=== PATIENT | female | born 1970 | race Caucasian/White ===

== ENCOUNTER 2016-06-11 13:41 | Emergency (ER) | payer OTHER ==
[2016-06-11 15:48] VITALS: BP 126/91
[2016-06-11] MEDS ORDERED: Albuterol 2.5 MG/3 ML NEB.SOL* (0.083%) INH ONE (16:20)
--- NOTE | 2016-06-11 16:28 | UC ---
Respiratory Complaint HPI - HPI Summary HPI Summary: Started feeling very sick 5 nights ago with fever, cough, body aches, [place], and ST. Fever lasted about 2 days, but cough and SOB are now worse, especially with exertion and deep breaths. Feeling worse since yesterday, though aches and fever are better. - History of Current Complaint Chief Complaint: UCRespiratory Stated Complaint: COUGH Time Seen by Provider: 06/11/16 16:10 Hx Obtained From: Patient ?: No Onset/Duration: Gradual Onset, Lasting Days Timing: Constant Severity Initially: Moderate Severity Currently: Moderate Character: Sputum Description: - yellow, green, thick Alleviating Factors: Upright Position Associated Signs And Symptoms: Positive: Dyspnea, Fever, Chills, Wheezing, URI, Nasal Congestion. Negative: Hemoptysis, Calf Swelling - Allergies/Home Medications Allergies/Adverse Reactions: Allergies Allergy/AdvReac Type Severity Reaction Status Date / Time Ciprofloxacin [From Cipro] AdvReac GI Upset Verified 06/11/16 15:48 PMH/Surg Hx/FS Hx/Imm Hx - Additional Past Medical History Additional PMH: osteoporosis Endocrine History Of: Denies: Diabetes, Thyroid Disease Cardiovascular History Of: Denies: Cardiac Disorders, Hypertension, Pacemaker/ICD Respiratory History Of: Denies: COPD, Asthma GI/ History Of: Denies: Ulcer, Renal Disease Cancer History Of: Reports: Colorectal Cancer - Surgical History Surgical History: Yes Surgery Procedure, Year, and Place: lower anterior bowel resection 05/2008;. bilateral hip fx reconstruction - Family History Known Family History: Positive: Other - Colon [place] - Social History Alcohol Use: Weekly Substance Use Type: None Smoking Status (MU): Former Smoker Type: Cigarettes - Immunization History Most Recent Influenza Vaccination: 2016 Most Recent Tetanus Shot: uknown Most Recent Pneumonia Vaccination: None Review of Systems Constitutional: Fever, Chills, Fatigue Skin: Negative Eyes: Negative ENT: Sore Throat Respiratory: Shortness Of Breath, Cough Cardiovascular: Negative Gastrointestinal: Negative Genitourinary: Negative Motor: Negative Neurovascular: Negative Musculoskeletal: Arthralgia, Myalgia Neurological: Headache Psychological: Negative All Other Systems Reviewed And Are Negative: Yes Physical Exam Triage Information Reviewed: Yes Appearance: No Pain Distress, Well-Nourished Vital Signs: Initial Vital Signs Temp 98.8 F 06/11/16 15:40 Pulse 89 06/11/16 15:40 Resp 18 06/11/16 15:40 BP 126/91 06/11/16 15:40 Pulse Ox 98 06/11/16 15:40 Vital Signs Reviewed: Yes Eye Exam: Normal Eyes: Positive: Conjunctiva Clear ENT: Positive: Hearing grossly normal, Nasal congestion, TMs normal. Negative: Tonsillar swelling, Tonsillar exudate Dental Exam: Normal Neck exam: Normal Neck: Positive: Supple, Nontender, No Lymphadenopathy Respiratory Exam: Other - frequent dustin cough Respiratory: Positive: Rhonchi, Wheezing Cardiovascular Exam: Normal Cardiovascular: Positive: RRR, No Murmur Musculoskeletal Exam: Normal Neurological Exam: Normal Psychological Exam: Normal Skin Exam: Normal UC Diagnostic Evaluation - Laboratory O2 Sat by Pulse Oximetry: 98 Respiratory Course/Dx - Differential Dx/Diagnosis Provider Diagnoses: Akdubdarb-kgcx-ughovwf. bronchospasm Discharge - Discharge Plan Condition: Stable Disposition: HOME Prescriptions: Albuterol HFA INHALER* [Ventolin HFA Inhaler*] 1 - 2 puff INH Q4H PRN #1 mdi PRN Reason: wheeze, cough Guaifenesin-Codeine [Guaiatussin AC] 5 - 10 ml PO Q6H #240 ml MDD 40mL predniSONE TAB* [Deltasone TAB*] 50 mg PO DAILY #3 tab Patient Education Materials: Influenza (ED), Bronchospasm (ED) Referrals: Atilio Harry MD [Primary Care Provider] - Suad Mccall MD [Medical Doctor] - 5 Days Additional Instructions: Your chest x-ray did not show signs of pneumonia. All of your symptoms, as severe as they are, are consistent with an infection with influenza. There is no sign of bacterial infection at this time, but I want you to have close follow -up with your primary care provider to make sure that you are able to keep your oxygen level up with exertion. Please see your PCP on Thursday or Thursday for a recheck. If you develop new fever or increasing trouble breathing in the mean time, please go to the emergency department.
--- NOTE | 2016-06-11 16:47 | RAD ---
INDICATION: Cough, fever and shortness of breath. COMPARISON: Comparison is made with a prior chest x-ray study from February 03, 2010. TECHNIQUE: Dual-energy PA and lateral views of the chest were obtained. FINDINGS: The heart is within normal limits in size. Mediastinal and hilar contours appear within normal limits. The lungs are hyperinflated and clear. No pleural effusion is seen. IMPRESSION: FINDINGS SUGGESTIVE OF COPD, NO EVIDENCE FOR ACUTE FINDING.
== END 2016-06-11 17:08 | disposition home or self-care (01) ==
LOC: UCEAST 13:41
DX: J11.1 Influenza due to unidentified influenza virus with other respiratory manifestations (principal); J98.01 Acute bronchospasm; Z85.038 Personal history of other malignant neoplasm of large intestine; Z88.1 Allergy status to other antibiotic agents; Z87.891 Personal history of nicotine dependence
CPT/HCPCS: 71020; 99212; G0463

== ENCOUNTER 2017-06-25 12:43 | Emergency (ER) | payer OTHER ==
[2017-06-25 15:29] VITALS: BP 104/76
--- NOTE | 2017-06-25 16:35 | UC ---
Lower Extremity/Ankle HPI - HPI Summary HPI Summary: Patient is a 47-year-old female presented to the with chief complaint of bilateral knee pain, right fourth finger pain and ecchymosis and left foot swelling. She states she fell yesterday while working, falling directly onto her bilateral knees and injuring her finger in the process. She endorses a history of osteoporosis and is treated by Dr. Christy. She's been taking ibuprofen without relief of pain. She states due to her osteoporosis, she fractures easily, having had multiple fractures in the past undiagnosed for a long period of time. While she endorses swelling to the left ankle, this has been constant for over one month. X-ray obtained 1 month ago without any acute osseous injury. She feels she may have reinjured the area after her fall. Range of motion to the bilateral knees with pain. Range of motion to the ankle with pain. Ecchymosis to the fourth right finger with no limitations of range of motion. - History of Current Complaint Chief Complaint: UCLowerExtremity Stated Complaint: KNEE/HAND INJURY Time Seen by Provider: 06/25/17 15:40 Hx Obtained From: Patient ?: No Onset/Duration: Sudden Onset Severity Initially: Mild Severity Currently: Mild Pain Intensity: 3 Pain Scale Used: 0-10 Numeric Aggravating Factor(s): Standing, Ambulation Alleviating Factor(s): Rest Able to Bear Weight: Yes Related History: Occupational Injury - Risk Factors Gout Risk Factors: Age Over 40, Peripherial Vascular Disease DVT Risk Factors: Negative Septic Arthritis Risk Factor: Negative - Allergies/Home Medications Allergies/Adverse Reactions: Allergies Allergy/AdvReac Type Severity Reaction Status Date / Time ciprofloxacin Allergy Diarrhea Verified 06/25/17 15:30 PMH/Surg Hx/FS Hx/Imm Hx Previously Healthy: Yes - Surgical History Surgical History: Yes Surgery Procedure, Year, and Place: lower anterior bowel resection 05/2008;. bilateral hip fx reconstruction - Family History Known Family History: Positive: Unknown, Other - Colon [place] - Social History Occupation: Employed Full-time Lives: With Family Alcohol Use: Occasionally Substance Use Type: None Smoking Status (MU): Former Smoker Type: Cigarettes - Immunization History Most Recent Influenza Vaccination: 2015 Most Recent Tetanus Shot: uknown Most Recent Pneumonia Vaccination: None Review of Systems Constitutional: Negative Skin: Negative Respiratory: Negative Cardiovascular: Negative Motor: Negative Neurovascular: Negative Musculoskeletal: Arthralgia - bilateral knee pain/ left foot swelling/ right fourth finger ecchymosis Neurological: Negative Psychological: Negative Is Patient Immunocompromised?: No All Other Systems Reviewed And Are Negative: Yes Physical Exam Triage Information Reviewed: Yes Appearance: Well-Appearing, Well-Nourished Vital Signs: Initial Vital Signs Temp 99.3 F 06/25/17 15:26 Pulse 86 06/25/17 15:26 Resp 18 06/25/17 15:26 BP 104/76 06/25/17 15:26 Pulse Ox 97 06/25/17 15:26 Vital Signs Reviewed: Yes Eye Exam: Normal Eyes: Positive: Conjunctiva Clear Neck exam: Normal Neck: Positive: Supple, No Lymphadenopathy Respiratory Exam: Normal Respiratory: Positive: Chest non-tender Cardiovascular Exam: Normal Cardiovascular: Positive: RRR Musculoskeletal: Positive: ROM Limited @ - left ankle, bilateral knees, R fourth finger pain Psychological: Positive: Normal Response To Family Skin Exam: Normal Lower Extremity Course/Dx - Course Course Of Treatment: During the course treatment, the patient is evaluated for bilateral knee pain, right fourth finger injury and left foot pain after falling yesterday at work. She has been taking ibuprofen without relief. She is being treated by Dr. Polk for previous fractures and osteoporosis. Patient sent to x-ray. X-ray final reads are negative for any fractures. Swelling to the right fourth finger. Patient is made aware and given note for work. She will follow-up with her PCP for any changing symptoms. - Differential Dx/Diagnosis Provider Diagnoses: Fall Discharge - Sign-Out/Discharge Documenting (check all that apply): Discharge/Admit/Transfer - Discharge Plan Condition: Stable Disposition: HOME Patient Education Materials: Swollen Knee Joint (ED), Knee Pain (ED) Forms: *Work Release Referrals: Atilio Harry MD [Primary Care Provider] - Additional Instructions: Please follow up with Dr. Polk Ibuprofen 400mg three times daily ice Elevate - Billing Disposition and Condition Condition: STABLE Disposition: HOME
--- NOTE | 2017-06-25 16:36 | RAD ---
Indication: Right ring finger injury. 4 views of the right ring finger demonstrates no fracture. No other bone or joint abnormality is identified. Soft tissue swelling over the proximal interphalangeal joint is noted. IMPRESSION: Soft tissue swelling at the proximal interphalangeal joint of the right fourth digit.
--- NOTE | 2017-06-25 16:42 | RAD ---
Indication: Fall, history of right tibial plateau fracture. 4 views of the right knee and 4 views of left knee are reviewed. The right knee demonstrates no fracture. No joint effusion is noted. The left knee demonstrates no fracture. No joint effusion is noted. IMPRESSION: No fracture is identified. No joint effusion is noted.
--- NOTE | 2017-06-25 16:44 | RAD ---
INDICATION: Left foot injury. TECHNIQUE: 3 views of the left foot were obtained. FINDINGS: There is diffuse soft tissue swelling. The bones are osteopenic. No fracture is seen. There is hallux valgus deformity and mild osteoarthritic change in the first metatarsal-phalangeal joint. IMPRESSION: SOFT TISSUE SWELLING, NO FRACTURE IS SEEN. IF THE PATIENT'S SYMPTOMS PERSIST RECOMMEND FOLLOW-UP IMAGING.
== END 2017-06-25 17:40 | disposition home or self-care (01) ==
LOC: UCEAST 12:43
DX: M25.562 Pain in left knee (principal); M25.561 Pain in right knee; S69.91XA Unspecified injury of right wrist, hand and finger(s), initial encounter; M79.672 Pain in left foot; W19.XXXA Unspecified fall, initial encounter; Y93.9 Activity, unspecified; Y92.9 Unspecified place or not applicable; M81.0 Age-related osteoporosis without current pathological fracture; Z88.1 Allergy status to other antibiotic agents; Z87.891 Personal history of nicotine dependence
CPT/HCPCS: 73140; 99211; G0463

== ENCOUNTER 2017-12-16 10:43 | Observation (INO) | payer OTHER ==
--- OUTSIDE RECORDS SUMMARY | 2017-12-16 10:53 | XMS REPORT ---
:1970 External Reference #:[id number] Author Organization [employer] Address [address] [place] [address] Phone [phone] Care Team Providers Name Role Phone Atilio Harry M.D. Primary Care Physician Unavailable Payers Type Date Identification Numbers Payment Provider Subscriber Commercial Policy Number: [id number] [employer] Radha Valdez Group Number: [id number] [address] PayID: [id number] [place] [address] Problems Description No Information Family History Date Family Member(s) Problem(s) Comments General Arthritis, Osteo General Arthritis Father Blood Disorder Mother Rheumatoid Arthritis Mother Kidney Disease Maternal Grandfather due to [place] () - age 60 Social History Type Date Description Comments Marital Status Lives With Spouse 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 Cigarette Use Occasionally Smokes Cigarettes On and off 20 yrs ETOH Use Occasionally consumes alcohol Moderate amt In the past pt used ETOH to help her sleep 6-7 beers per night Smoking Patient is a former smoker Daily Caffeine Does Not Consume Caffeine Exercise Type/Frequency Exercises regularly Allergies, Adverse Reactions, Alerts Date Description Reaction Status Severity Comments 01/24/2009 contrast dye severe GI reaction active CT scan 08/14/2017 Cipro active GI 03/09/2008 NKDA inactive Medications Medication Date Status Form Strength Qnty SIG Indications Ordering Provider Gabapentin 10/21/ Active Capsules 100mg 45cap take 1 R20.8 Johny 2017 s capsule by Tona, mouth at M.D. night for 1 week then 1 by mouth twice daily ongoing Compression 10/21/ Active Misc 2unit please use R20.8 Johny Stockings 2018 s daily as Tona, needed for M.D. leg/foot swelling Prolia 10/05/ Active Solution 60mg/ml 60mg 60 mg sc Johny 2018 q6mon Dayanna Carbone Compression 08/14/ Active Misc 2unit please use Johny Layne 2018 s daily as Tona, needed for M.D. leg/foot swelling B12 Fast 08/14/ Active Tablets 5000mcg 90tab sublingual Johny Dissolve 2018 Dispers s daily Dayanna Carbone Percocet 01/24/ Active Tablets 5-325mg 40tab 1 po q4h Jj 2008 s prn Manolo Garber M.D. Multi Vitamin 03/09/ Active Tablets 90tab 1 po qd Jj 2008 s Manolo Garber M.D. Calcium 600 / Active Tablets 2 by mouth Unknown 0000 every day Melatonin / Active Capsules 1 tab by Unknown 0000 mouth at bedtime as needed for insomnia Famotidine / Active Tablets 40mg 1 by mouth Unknown 0000 twice a day, as needed Advil / Active Tablets 200mg as needed Unknown 0000 Creon / Active Caps DR Chapman [id number] 1 po qd Unknown 0000 Lorazepam / Active Tablets 1mg 2 po daily Unknown 0000 Oxycontin / Active Tab ER 12H 10mg 1 tab As Unknown 0000 Abuse-Det needed Ativan 01/24/ Hx Tablets 0.5mg 10tab 1 po qd prn Jj 2008 - s S. 12/14/ Shirlene Moser M.D. Lidicaine 03/09/ Hx Tablets 90tab Mouth Rinse Qutaybeh 2008 - s 3-4 X Day S. 01/24/ Shirlene Anne M.D. Miracle Mouth 03/09/ Hx Liquid 2Teaspoons 30uni qid Jose Luistaybeh Wash 2008 - S. 06/30/ Shirlene Anne M.D. Vicodin 03/09/ Hx Tablets 5-500mg 180ta 1 q 4-6 Jose Luistaybeh 2008 - bs hours prn S. 01/24/ Shirlene Anne M.D. Immodium 03/09/ Hx 2mg 30uni 1 po qd prn Qutaybeh 2008 - ts S. 06/30/ Shirlene Anne M.D. carafate 03/09/ Hx Suspension 1GM/10ML [facility] 2008 - le lips S. 04/06/ Shirlene Anne M.D. Lorazepam 03/09/ Hx Tablets 1mg 30tab 1 q 6 hours [facility] - s prn S. 01/24/ Shirlene Anne M.D. Lidoderm 03/09/ Hx Patches 5% 30uni apply [facility] 2008 - ts topically S. 01/24/ [facility] Biotin / Hx Capsules Unknown 0000 - 2017 Vitamin / Hx Tablets 1 by mouth Unknown B-Complex 0000 - every day 2017 Vital Signs Date Vital Result Comment 12/15/2017 Height 64 inches 5'4" Weight 96.12 lb Heart Rate 88 /min BP Systolic 102 mmHg BP Diastolic 80 mmHg Respiratory Rate 16 /min BMI (Body Mass Index) 16.5 kg/m2 10/21/2017 Height 64 inches 5'4" Weight 98.00 lb Heart Rate 87 /min BP Systolic Sitting 100 mmHg BP Diastolic Sitting 71 mmHg Respiratory Rate 14 /min Pain Level 5 BMI (Body Mass Index) 16.8 kg/m2 09/08/2017 Height 64 inches 5'4" Weight 97.00 lb Heart Rate 96 /min BP Systolic Sitting 94 mmHg BP Diastolic Sitting 66 mmHg Respiratory Rate 14 /min Pain Level 2 BMI (Body Mass Index) 16.6 kg/m2 08/14/2017 Height 64 inches 5'4" Weight 98.12 lb Heart Rate 68 /min BP Systolic Sitting 98 mmHg BP Diastolic Sitting 68 mmHg Respiratory Rate 14 /min Pain Level 2 BMI (Body Mass Index) 16.8 kg/m2 01/24/2009 Weight 102.00 lb Heart Rate 84 /min BP Systolic Sitting 90 mmHg BP Diastolic Sitting 62 mmHg Respiratory Rate 16 /min 06/30/2008 Height 65 inches 5'5" Weight 104.00 lb Heart Rate 64 /min BP Systolic Sitting 90 mmHg L BP Diastolic Sitting 64 mmHg L BMI (Body Mass Index) 17.3 kg/m2 04/06/2008 Weight 115.00 lb Heart Rate 68 /min BP Systolic Sitting 98 mmHg BP Diastolic Sitting 64 mmHg Respiratory Rate 16 /min 03/09/2008 Height 64 inches 5'4" Weight 121.00 lb Heart Rate 72 /min BP Systolic Sitting 90 mmHg BP Diastolic Sitting 62 mmHg BP Systolic Standing 100 mmHg BP Diastolic Standing 70 mmHg Respiratory Rate 14 /min BMI (Body Mass Index) 20.8 kg/m2 Results Test Date Test Result H/L Range Note Vitamin B12 And Folate Serum 10/05/2017 Vitamin B12 > 1450 pg/mL High 180- 914 1 Folic Acid (Folate) 15.74 ng/mL >3.99 2 Connective Tissue Panel 08/25/2017 Anti-Nuclear Antibody 0.2 U 3 Cyclic Citrullinated Peptide <15.6 U 4 Interpretation See Comment 5 Laboratory test finding 08/25/2017 Vitamin D, 1,25 Dihydroxy 75 pg/mL 18- 78 6 Free T4 (Free Thyroxine) 0.81 ng/dL 0.61-1.12 7 Thyroperoxidase AB 17.72 IU/mL High <9 8 Hla B27 08/25/2017 Hla B27 Negative 9 Hla B27 Interp See Comment 10 Laboratory test finding 08/25/2017 Mitochondrial AB AMA M2 <0.1 U 11 Igg CBC Auto Diff 08/07/2017 White Blood Count 7.7 10^3/uL 3.5-10.8 Red Blood Count 3.42 10^6/uL Low 4.00-5.40 Hemoglobin 12.6 g/dL 12.0-16.0 Hematocrit 37 % 35-47 Mean Corpuscular Volume 107 fL High 80-97 12 Mean Corpuscular Hemoglobin 37 pg High 27-31 Mean Corpuscular HGB Conc 34 g/dL 31-36 Red Cell Distribution Width 15 % 10.5-15 Platelet Count 267 10^3/uL 150-450 Mean Platelet Volume 7.6 um3 7.4-10.4 Abs Neutrophils 4.5 10^3/uL 1.5-7.7 Abs Lymphocytes 2.4 10^3/uL 1.0-4.8 Abs Monocytes 0.6 10^3/uL 0-0.8 Abs Eosinophils 0 10^3/uL 0-0.6 Abs Basophils 0.1 10^3/uL 0-0.2 Abs Nucleated RBC 0 10^3/uL Granulocyte % 59.1 % 38-83 Lymphocyte % 31.5 % 25-47 Monocyte % 8.1 % High 0-7 Eosinophil % 0.5 % 0-6 Basophil % 0.8 % 0-2 Nucleated Red Blood Cells % 0 Comp Metabolic Panel 08/07/2017 Sodium 135 mmol/L 135-145 Potassium 4.1 mmol/L 3.5-5.0 Chloride 98 mmol/L Low 101-111 Co2 Carbon Dioxide 31 mmol/L 22-32 Anion Gap 6 mmol/L 2-11 Glucose 113 mg/dL High 70-100 Blood Urea Nitrogen 5 mg/dL Low 6-24 Creatinine 0.48 mg/dL Low 0.51-0.95 BUN/Creatinine Ratio 10.4 8-20 Calcium 8.7 mg/dL 8.6-10.3 Total Protein 5.5 g/dL Low 6.4-8.9 Albumin 2.8 g/dL Low 3.2-5.2 Globulin 2.7 g/dL 2-4 Albumin/Globulin Ratio 1.0 1-3 Total Bilirubin 0.40 mg/dL 0.2-1.0 Alkaline Phosphatase 199 U/L High 34-104 Alt 20 U/L 7-52 Ast 35 U/L 13-39 Egfr Non- 138.0 >60 Egfr 167.0 >60 13 Laboratory test 08/07/2017 Carcinoembryonic Antigen 19.0 ng/mL High 0.1- 5.0 14 finding Cea 1 Normal Range 180 to 914 Indeterminate Range 145 to 180 Deficient Range <145 2 Please check labs 2 weeks 3 REFERENCE VALUE <=1.0 (Negative) 4 REFERENCE VALUE <20.0 (Negative) 5 Tests for antibodies to dsDNA and YAA antigens are not performed automatically unless the IVONNE result is > or= 3.0 U. Studies performed at [facility] indicate that positive IVONNE results <3.0 U are rarely accompanied by positive second order tests. Test Performed by: [facility] [employer] - [address] [address] 6 ADDITIONAL INFORMATION This test was developed and its performance characteristics determined by [facility] in a manner consistent with CLIA requirements. This test has not been cleared or approved by the U.S. Food and Drug Administration. Test Performed by: [facility] - [facility] [address] [place] [address] 7 Please check labs this week 8 Please check labs this week 9 REFERENCE VALUE Not Applicable 10 RESULT: HLA-B27 antigen was not detected. ADDITIONAL INFORMATION Method: Flow Cytometry Performing Laboratory CLIA# [id number] Test Performed by: [facility] [address] [place] [address] 11 REFERENCE VALUE <0.1 (Negative) Test Performed by: [facility] - [address] [address] 12 Consistent with Previous Results Reported on 04/08/17 13 Because ethnic data is not always readily available, this report includes an eGFR for both -Americans and non- Americans. The National Kidney Disease Education Program (NKDEP) does not endorse the use of the MDRD equation for patients that are not between the ages of 18 and 70, are , have extremes of body size, muscle mass, or nutritional status, or are non- or non-. According to the National Kidney Foundation, irrespective of diagnosis, the stage of the disease is based on the level of kidney function: Stage Description GFR(mL/min/1.73 m(2)) 1 Kidney damage with normal or decreased GFR 90 2 Kidney damage with mild decrease in GFR 60-89 3 Moderate decrease in GFR 30-59 4 Severe decrease in GFR 15-29 5 Kidney failure <15 (or dialysis) 14 Nonsmokers: < 2.9 ng/mL Some smokers may have elevated CEA, usually <5.0 ng/mL. Serum markers are not specific for malignancy, and values may vary by method. The testing method is an immunoenzymatic assay clinic cma by [employer] performed on [employer] Validus-IVC DXI 600. Do not interpret serum CEA levels as absolute evidence of the presence or the absence of malignant disease. Use serum CEA in conjunction with information from the clinical evaluation of the patient and other diagnostic procedures. Procedures Date CPT Code Description Status 08/25/2017 Bone Mineral Density Test Completed 01/24/2009 39594 EKG Tracing & Interpretation Completed 01/19/2009 45664 Holter Monitor Interpretation Completed 03/27/2008 30844 Color Doppler Completed 03/27/2008 53509 Pulse Doppler & Continuous Wave Completed 03/27/2008 79280 Echocardiogram Completed 03/27/2008 44798 ECHO Transthoracic, Real-Time 2D With Doppler And Color Completed Flow 03/24/2008 81385 ECHO Stress Test Incl Perf Contiuous ekg Monitoring Completed W/Phys Superv 03/24/2008 09248 ECHO/Stress Completed 03/24/2008 81425 ECHO/Stress Completed 03/24/2008 64554 Stress Test Completed 03/24/2008 55079 Stress Test Completed 03/09/2008 49627 EKG Tracing & Interpretation Completed 02/29/2008 01604 Holter Monitor Interpretation Completed Encounters Type Date Location Provider CPT E/M Dx Office Visit 10/21/2017 [facility]y Carbone M.D. 04254 R20.8 3:00p Of Jorden E53.9 M81.0 R74.8 Office Visit 09/08/2017 3:40p [facility] Johny Carbone 86602 M81.0 Jorden Alan R20.8 R74.8 E06.9 E53.9 Office Visit 08/14/2017 12:00p [facility] Johny Carbone 58728 R20.8 Jorden Alan G89.29 E53.8 M81.0 R60.0 R74.8 Office Visit 10/31/2015 12:37p [facility] Preet Hat[place]Mina, [address] K85.2 Assoc[facility] C20 F10.10 F41.9 Office Visit 10/30/2015 12:35p [facility] Preet [place], [address] K85.2 Assoc[facility] C20 F10.10 F41.9 Office Visit 10/29/2015 12:34p [facility] Preet [place], [address] K85.2 Assoc, [facility] C20 F10.10 F41.9 Office Visit 10/28/2015 12:32p [facility] [place], [address] K85.2 Assoc, Hospitalists M.D. C20 F10.10 F41.9 Office Visit 01/24/2009 9:20a [facility] Qutaybeh S. Maghaydah, 56453 785.1 M.D. 427.0 794.31 Office Visit 06/30/2008 3:10p [facility] Qutaybeh S. Maghaydah, 65616 785.1 M.D. 427.0 Office Visit 04/06/2008 4:00p [facility] Qutaybeh S. Maghaydah, 46419 785.1 M.D. 427.0 Office Visit 03/09/2008 9:40a [facility] Qutaybeh S. Maghaydah, [address]0534 785.1 M.D. 427.0 794.31 Plan of Care Future Appointment(s):01/06/2018 12:00 pm - Ramses Schwartz M.D. at [facility]12/15/2017 - Ramses Schwartz M.D.R20.8 Other disturbances of skin sensationFollow up:last 1 year blood tests from Dr. Harry needs letter for out of work for next week needs elective admission to hospital tomorrow AM 2 yptuaN14.9 Vitamin B deficiency, tlttlascwnpQ90.81 Chronic inflammatory demyelinating polyneuritis
[2017-12-16] MEDS ORDERED: Lidocaine 1% INJ* 10 MG/ML 30 ML SDV ONE (11:23)
[2017-12-16 11:55] LABS: Body Fluid Source Cerebral Spinal
[2017-12-16 13:36] LABS: ABS Basophils 0.1 10^3/ul (0-0.2); ABS Eosinophils 0 10^3/ul (0-0.6); ABS Lymphocytes 1.6 10^3/ul (1.0-4.8); ABS Monocytes 0.6 10^3/ul (0-0.8); ABS Neutrophils 6.1 10^3/ul (1.5-7.7); ABS Nucleated RBC 0 10^3/ul; Eosinophil % 0.2 % (0-6); Hematocrit 37 % (35-47); Hemoglobin 12.8 g/dl (12.0-16.0); Lymphocyte % 19.1 % (25-47); Mean Corpuscular HGB Conc 35 g/dl (31-36); Mean Corpuscular Hemoglobin 37 pg (27-31); Mean Corpuscular Volume 107 fL (80-97); Mean Platelet Volume 7.5 fL (7.4-10.4); Nucleated Red Blood Cells % 0.1; Platelet Count 250 10^3/ul (150-450); Red Blood Count 3.42 10^6/ul (4.00-5.40); Red Cell Distribution Width 15 % (10.5-15); White Blood Count 8.5 10^3/ul (3.5-10.8)
[2017-12-16 13:39] LABS: INR 1.14 (0.77-1.02)
[2017-12-16 13:52] LABS: EGFR Non-African American 156.7 (>60)
[2017-12-16] MEDS: LORazepam TAB(*) 1 MG PO PRN ×2 (14:45→21:20)
[2017-12-16] MEDS: oxyCODONE/Acetamin 5/325 MG* TAB PO PRN ×2 (14:48→21:20)
[2017-12-16] MEDS ORDERED: Gadoteridol* (CONTRAST) 279.3 MG/ML 10 ML IV ONE (15:40)
[2017-12-16] MEDS ORDERED: Thiamine IV 100 MG, Folic Acid IV* 1 MG, Multiple Vitamin IV ADULT* 10 ML in D5NS 0.9% ... IV ONE (19:30)
--- NOTE | 2017-12-16 22:52 | CONS ---
CONSULTATION NOTE: DATE OF CONSULT: 12/10/17 PATIENT OF: Dr. Harry and Dr. Schwartz. HISTORY OF PRESENT ILLNESS: This is a 47-year-old woman I am asked to evaluate for her neuropathy, was seeing Dr. Schwartz for this problem yesterday and this is a scheduled admission to expedite evaluation and treatment plans. She is 47 -year- old and had rectal cancer in 2007, receiving radiation therapy of 5-FU and oxaliplatin and had surgery. She developed numbness in her legs and feet and to some degree in her hands. It stabilized. She had residual numbness in her feet, but she told me today her lower legs, but not her hands. Since this past spring, there has been increasing numbness and pain in her feet and spreading into her legs, into her hands and arms and she has some odd feeling in her cheeks and her face, which is not quite numbness. She has had some numbness in the saddle region. She has lost about 15 pounds in the past year and has had some chronic diarrhea and has been treated for low vitamin B12 levels, but with hyper- therapeutic levels recently. She has significant alcohol history as well and has some bladder control issues and she notes that the symptoms have clearly escalated in the past 5 to 6 weeks and has some feeling of heaviness and unsteadiness. PAST MEDICAL HISTORY: She has had a history of SVTs, rectal cancer as mentioned above, anxiety. She is status post a LEEP procedure by , bowel resection, spine surgery in 2016, Infusaport in the right lateral chest. MEDICATIONS: Included, 1. Gabapentin that has been increased to 100 mg twice daily. 2. Prolia 60 mg subcutaneously every six months. 3. B12 1000 units sublingual daily. 4. Percocet p.r.n. 5. Melatonin one tablet at bedtime as needed. 6. Famotidine 40 mg twice a day as needed. 7. Creon 12,000 units daily. 8. Lorazepam 1 mg two daily. 9. OxyContin 10 mg as needed. ALLERGIES: She is allergic to CONTRAST DYE of CT scan with GI reaction, and CIPRO with GI reaction. FAMILY HISTORY: Mother had rheumatoid arthritis, kidney disease. SOCIAL HISTORY: She is and lives with her spouse. She is a former smoker. PHYSICAL EXAM: Temperature 98.1, pulse 84, respirations 20, blood pressure 117/ 81. She is alert and oriented with normal speech and comprehension. Cranial nerves II through XII are intact. She has normal fundi. Pupils are 5 mm, sluggish to reactive. Discs were sharp. She has slight decrease to light touch in the left side of her face. There is no dysarthria. Speech is normal. My motor exam has subtle difference than Dr. Schwartz's in that he had diffuse proximal weakness and I agree that this is mild but present, but he does state dorsiflexion weakness and I thought that was the most prominent finding, which was 3/5. She had decreased light touch distally with positive Romberg. Trace ankle jerks with a wide based ataxic gait and numbness intact. Chest: Clear. Cardiovascular: Regular rate and rhythm. Abdomen is soft with positive bowel sounds. ASSESSMENT: She has already had her spinal tap, which was normal with 0 white cells, 0 red cells, normal protein, normal glucose. I will add paraneoplastic serologies on CSF and on blood. I am also adding a VDRL on the CSF. Since there are no cells, I am not going to add cytology. She is having MRI scan as Dr. Schwartz as outlined and then I will be also getting an EMG nerve conduction study tomorrow. She will be on IV therapy for thiamine and treatment for her possible alcohol consumption. Once the diagnostic workup is completed, we will evaluate the findings and make final decision about the need to proceed with IVIG. Thanks for sharing her case. [id number]/[facility] #: [id number] [facility]
--- NOTE | 2017-12-17 01:15 | PM ---
PAIN MANAGEMENT NOTE: DATE OF VISIT: 12/16/17 - ROOM #401 HISTORY: I had the pleasure of seeing Radha Valdez at the [facility] today. Ms. Valdez presents for lumbar puncture for diagnostics to rule out intrathecal metastatics of her colorectal cancer. She has had new onset ataxia as well as neuropathic pain symptoms in her lower extremities in addition to numbness and tingling in her legs. She is being admitted today for workup of this new symptom with MRI of the lumbar spine, thoracic spine as well as head as well as lumbar puncture. She presents today for lumbar puncture. She denies use of anticoagulant, history of coagulopathy. She notes 1 prior history of lumbar puncture from which she unfortunately suffered postdural puncture headache and had to have a blood patch. Other than this, she notes no complications of the procedure. She is not on any current anticoagulation. The risks and benefits of the procedure were discussed with the patient who verbalized understanding and elected to proceed. The risks including, but not limited to bleeding, bruising, infection, nerve injury and headache were discussed. PROCEDURE NOTE: The patient was placed in the left lateral position. Her back was prepped with chlorhexidine skin prep. The time-out was performed. A 3 cc of 1% lidocaine plain was used to anesthetized the skin. The L3-4 interspace was approximated. A 20-gauge introducer along with 25 gauge Pencan needle was used to access the intrathecal space. Opening pressure was found to be 11 cm of water. CSF crystal clear, free flowing CSF was aspirated from the intrathecal space slowly and sent to the lab for further testing as ordered by her admitting physician. The patient tolerated the procedure well with no focal neurological deficits or paraesthesias. The needles were then removed and the site was cleaned and dressed with the Band-Aid. The patient was given the usual post dural puncture instructions including no tub bath, hot tubs, or swimming and then return to her admitted room on the 4th floor. Her questions were answered and her concerns otherwise addressed and she will follow up with me only as needed. Thank you for allowing me to participate in the care of your patient, please do not hesitate to call with the questions. [id number]/[facility] #: [id number] [facility]
[2017-12-17] MEDS: LORazepam TAB(*) 1 MG PO PRN ×4 (01:26→21:24)
[2017-12-17] MEDS: Folic Acid TAB* 1 MG PO SCH (07:19)
[2017-12-17] MEDS: Thiamine TAB* 100 MG TAB PO SCH (07:19)
[2017-12-17] MEDS: Prenatal Vitamin TAB PO SCH (07:19)
[2017-12-17] MEDS: oxyCODONE/Acetamin 5/325 MG* TAB PO PRN ×3 (07:24→21:24)
--- NOTE | 2017-12-17 11:21 | PN ---
Progress Note - Progress Note Date of Service: 12/17/17 SOAP: Subjective: [No change in symptoms. Anxious about her neuropathy.] Objective: [ Laboratory Results - last 24 hr 12/16/17 12/16/17 12/16/17 11:35 11:35 13:17 WBC 8.5 RBC 3.42 L Hgb 12.8 Hct 37 MCV 107 H MCH 37 H MCHC 35 RDW 15 Plt Count 250 MPV 7.5 Neut % (Auto) 71.9 Lymph % (Auto) 19.1 L [place] % (Auto) 7.6 H Eos % (Auto) 0.2 Baso % (Auto) 1.2 Absolute Neuts (auto) 6.1 Absolute Lymphs (auto) 1.6 Absolute Monos (auto) 0.6 Absolute Eos (auto) 0 Absolute Basos (auto) 0.1 Absolute Nucleated RBC 0 Nucleated RBC % 0.1 INR (Anticoag Therapy) APTT Sodium Potassium Chloride Carbon Dioxide Anion Gap BUN Creatinine Est GFR ( Amer) Est GFR (Non-Af Amer) BUN/Creatinine Ratio Glucose Calcium Total Bilirubin AST ALT Alkaline Phosphatase Total Protein Albumin Globulin Albumin/Globulin Ratio Carcinoembryonic Ag Fluid Source Cerebral spinal Fluid Volume 2 Fluid Color Colorless Fluid Appearance Clear Fluid WBC 0 Fluid RBC 0 Fluid Tot Cell Count 10 Fluid Neutrophils Not Reportable Fluid Lymphocytes 30 Fluid Monocytes 70 Fluid Comment CSF Cell Count Tube # 4 CSF Glucose 79 H CSF Total Protein 20 12/16/17 12/16/17 13:17 13:17 WBC RBC Hgb Hct MCV MCH MCHC RDW Plt Count MPV Neut % (Auto) Lymph % (Auto) [place] % (Auto) Eos % (Auto) Baso % (Auto) Absolute Neuts (auto) Absolute Lymphs (auto) Absolute Monos (auto) Absolute Eos (auto) Absolute Basos (auto) Absolute Nucleated RBC Nucleated RBC % INR (Anticoag Therapy) 1.14 H APTT 34.0 Sodium 136 Potassium 4.1 Chloride 100 L Carbon Dioxide 31 Anion Gap 5 BUN 3 L Creatinine 0.43 L Est GFR ( Amer) 189.6 Est GFR (Non-Af Amer) 156.7 BUN/Creatinine Ratio 7.0 L Glucose 136 H Calcium 8.3 L Total Bilirubin 0.70 AST 37 ALT 22 Alkaline Phosphatase 206 H Total Protein 5.7 L Albumin 2.8 L Globulin 2.9 Albumin/Globulin Ratio 1.0 Carcinoembryonic Ag 23.3 H Fluid Source Fluid Volume Fluid Color Fluid Appearance Fluid WBC Fluid RBC Fluid Tot Cell Count Fluid Neutrophils Fluid Lymphocytes Fluid Monocytes Fluid Comment CSF Cell Count Tube # CSF Glucose CSF Total Protein Acetaminophen (Tylenol Tab*) 650 mg PO ONCE ONE Stop: 12/17/17 11:46 Diphenhydramine HCl (Benadryl Po*) 50 mg PO ONCE ONE Stop: 12/17/17 11:46 Folic Acid (Folvite Tab*) 1 mg PO DAILY [facility] Last Admin: 12/17/17 07:19 Dose: 1 mg Immune Globulin 20 gm/ IV (Solution) 400 mls @ 0 mls/hr IV DAILY [facility]; Protocol Stop: 12/22/17 11:59 Loperamide HCl (Imodium Cap*) 2 mg PO Q4HR PRN PRN Reason: Diarhea Lorazepam (Ativan Tab(*)) 1 mg PO Q4H PRN PRN Reason: ANXIETY Last Admin: 12/17/17 10:21 Dose: 1 mg Multivitamins ( Vitamin Tab*) 1 tab PO DAILY [facility] Last Admin: 12/17/17 07:19 Dose: 1 tab Oxycodone/Acetaminophen (Percocet 5/325 Tab*) 1 tab PO Q6H PRN PRN Reason: PAIN Last Admin: 12/17/17 07:24 Dose: 1 tab Thiamine HCl (Vitamin B-1 Tab*) 100 mg PO DAILY [facility] Last Admin: 12/17/17 07:19 Dose: 100 mg Vital Signs: Temp Pulse Resp BP Pulse Ox 97.7 F 77 16 106/75 98 12/17/17 08:43 12/17/17 08:43 12/17/17 11:04 12/17/17 08:43 12/17/17 04:49 Exam: Gen: Thin 47 yo female who is anxious but otherwise in NAD Neuro: please see neurology note, mild weakness of dorsiflexion Psych: anxious and tearful] Assessment: [47 yo female with h/o CRC and persistently elevated CEA, but no evidence of recurrent disease admitted with a progressive neuropathy.] Plan: [Neuropathy: - workup negative thus far including MRI brain, cervical spine, thoracic spine and lumbar spine as well as lumbar puncture - nerve conduction studies are in progress, but thus far appear normal - thiamine replacement ordered due to h/o alcoholism - plan to empirically treat with IVIG 2 mg/kg divided over 5 doses per neurology recommendations CRC - CEA persistently elevated ~20 - last imaging from >1 year ago, but serial scans have failed to demonstrate recurrence - repeat restaging scans - CT C/A/P now Dispo: 1st 2 doses of IVIG today and tomorrow, if she tolerates well may be able to arrange for outpatient infusion of the remaining doses]
[2017-12-17] MEDS: oxyCODONE SR TAB(*) 10 MG TAB.SR PO SCH ×2 (11:43→21:25)
[2017-12-17] MEDS ORDERED: Acetaminophen TAB* 325 MG PO ONE (11:45)
[2017-12-17] MEDS ORDERED: diPHENhydraMINE PO* 50 MG PO ONE (11:45)
[2017-12-17] MEDS ORDERED: Iohexol 300* (CONTRAST) 10 ML SDV IV ONE (12:49)
[2017-12-17] MEDS: IMMUNE GLOBULN IVPB SCH (14:01)
[2017-12-17] MEDS: Loperamide CAP* 2 MG PO PRN ×2 (14:58→21:24)
[2017-12-17] MEDS: Famotidine TAB* 20 MG PO SCH ×2 (21:23→21:28)
--- NOTE | 2017-12-18 01:02 | CONSULT ---
Subjective Date of Service: 12/17/17 Interval History: pt was evaluated on dec 17 evening after she came back to her room. hospitalist service was called to eval her after her return code status full this is medicine consult called in by onc after her elopement hpi this is a 47 yr old wf with hx of rectal ca under onc service left the hospital with her peripheral iv. as per report, she eloped and was witnessed to be in car and estimate time of disappearnce 20 to 25 min. pt then returned to her room ---> medicine consult to exam her to clear her back to onc service instead of going to er as per administration's request. pt says to staff that she went to buy food. when she was seen by the nursing iron and steel work supervisor and this screenplay writer ( a male family memeber was in the room as well ) pt was explained reg the necessary exam as per hospital protocol. she got very upset reg this and claimed that she did not leave 20 min long. pt got scheduled opiods and benzo prior to this screenplay writer's arrival because she looked very anxious. urine toxin considered but might be inconclusive after she received opioids and benzo. pt was explained reg hospital rule by the nursing iron and steel work supervisor ---> got very upset and requested to be alone with this screenplay writer ( asked her male family and nuing iron and steel work supervisor out ) ---> pt was asking for this screenplay writer's id badge number and name despite she was explained multiple times that this evaluation was needed due to hospital protocol phx multiple fx s/p veterbroplasty 2015 rectal CA 01/16 7 cm from anal verge. s/p neoadjuvant radiaton/5 fu infusion--- > poorly tolerated. 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 SBO hx of pancreatitis hx of etoh dep social hx no longer cig no eoth no ivda but fhx no sig onc fhx Review of Systems - Measurements Intake and Output: Intake and Output Last 24 Hours 12/15/17 12/16/17 12/17/17 12/18/17 06:59 06:59 06:59 06:59 Intake Total 360 600 Balance 360 600 Weight 95 lb 6.4 oz Intake: IV Fluids 200 Oral 360 400 Other: Estimated Void Medium Medium Date of Last Bowel 12/15/17 Movement # Bowel Movements 0 1 Estimated Stool Amount Small # Voids 1 2 denied but was very upset after medicine consult was called in to eval her after her elopment Objective Active Medications: Acetaminophen (Tylenol Tab*) 650 mg PO ONCE ONE Stop: 12/18/17 09:01 Diphenhydramine HCl (Benadryl Po*) 50 mg PO ONCE ONE Stop: 12/18/17 09:01 Famotidine (Pepcid Tab*) 40 mg PO BID [facility] Last Admin: 12/17/17 21:28 Dose: Not Given Folic Acid (Folvite Tab*) 1 mg PO DAILY [facility] Last Admin: 12/17/17 07:19 Dose: 1 mg Immune Globulin 20 gm/ IV (Solution) 200 mls @ 0 mls/hr IVPB DAILY [facility]; Protocol Stop: 12/22/17 12:00 Last Admin: 12/17/17 14:01 Dose: 15 mls/hr Loperamide HCl (Imodium Cap*) 2 mg PO Q4HR PRN PRN Reason: Diarhea Last Admin: 12/17/17 21:24 Dose: 2 mg Lorazepam (Ativan Tab(*)) 1 mg PO Q4H PRN PRN Reason: ANXIETY Last Admin: 12/17/17 21:24 Dose: 1 mg Multivitamins ( Vitamin Tab*) 1 tab PO DAILY [facility] Last Admin: 12/17/17 07:19 Dose: 1 tab Oxycodone HCl (Oxycontin(*)) 10 mg PO BID [facility] Last Admin: 12/17/17 21:25 Dose: 10 mg Oxycodone/Acetaminophen (Percocet 5/325 Tab*) 1 tab PO Q6H PRN PRN Reason: PAIN Last Admin: 12/17/17 21:24 Dose: 1 tab Thiamine HCl (Vitamin B-1 Tab*) 100 mg PO DAILY [facility] Last Admin: 12/17/17 07:19 Dose: 100 mg Vital Signs - 8 hr 12/17/17 12/17/17 12/17/17 17:06 19:35 21:00 Temperature 98.3 F 98.6 F Pulse Rate 75 91 Respiratory 16 18 20 Rate Blood Pressure 121/75 101/65 (mmHg) O2 Sat by Pulse 99 97 Oximetry 12/17/17 12/17/17 12/17/17 21:24 21:25 23:28 Temperature 97.4 F Pulse Rate 92 Respiratory 20 20 20 Rate Blood Pressure 114/49 (mmHg) O2 Sat by Pulse 100 Oximetry 12/17/17 12/17/17 23:55 23:57 Temperature Pulse Rate Respiratory 20 20 Rate Blood Pressure (mmHg) O2 Sat by Pulse Oximetry Oxygen Devices in Use Now: None Appearance: nad Eyes: No Scleral Icterus, PERRLA Ears/Nose/Mouth/Throat: - - oral mucosa dry Neck: NL Appearance and Movements; NL JVP, Trachea Midline, - - neck is supple Respiratory: Symmetrical Chest Expansion and Respiratory Effort, Clear to Auscultation Cardiovascular: NL Sounds; No Murmurs; No JVD, RRR Abdominal: NL Sounds; No Tenderness; No Distention Extremities: - - +1 pedal edema able to walk on her own and able to raise her le against gravity with no need of assistance Skin: No Rash or Ulcers Result Diagrams: 12/16/17 13:17 12/16/17 13:17 Assessment/Plan - Billing this is a 47 yr old wf under onc service on both opioids and benzo eloped for 20 min came back to her room medical service was called to eval her for physical ---> she was very upset from the very beginning and got scheduled benzo and opioids prior to this screenplay writer's arrival which made urine toxin inconclusive even if it is done plan rectal ca hx with elevated cea ---> under onc service ---> will transfer pt back to them in am physical exam is neg otherwise chronic pain syndrome due to her underlying ca hx continue current mgt anxiety/mood disorder med ordered as per onc protocol thank you so much for your referral
[2017-12-18] MEDS: Folic Acid TAB* 1 MG PO SCH (07:23)
[2017-12-18] MEDS: Prenatal Vitamin TAB PO SCH (07:23)
[2017-12-18] MEDS: LORazepam TAB(*) 1 MG PO PRN ×2 (07:23→12:38)
[2017-12-18] MEDS: Thiamine TAB* 100 MG TAB PO SCH (07:23)
[2017-12-18] MEDS: Famotidine TAB* 20 MG PO SCH (07:23)
[2017-12-18] MEDS: oxyCODONE SR TAB(*) 10 MG TAB.SR PO SCH (07:24)
[2017-12-18] MEDS: Loperamide CAP* 2 MG PO PRN (08:58)
[2017-12-18] MEDS ORDERED: diPHENhydraMINE PO* 50 MG PO ONE (09:00)
[2017-12-18] MEDS ORDERED: Acetaminophen TAB* 325 MG PO ONE (09:00)
[2017-12-18] MEDS: IMMUNE GLOBULN IVPB SCH (09:03)
[2017-12-18 11:38] VITALS: BP 119/76
[2017-12-18] MEDS: Thiamine IV* 500 MG in NS 0.9% 250 ML* 250 ML IV ONE ×2 (11:40→11:41)
--- NOTE | 2017-12-18 13:50 | PN ---
NEUROLOGICAL FOLLOWUP: DATE OF SERVICE: 12/17/17 HISTORY: She continues to have her diffuse numbness and gait disturbance. She has not had any new complaints. Her medications remain her Pepcid, her Imodium, Ativan, OxyContin, and thiamine. She is starting her IVIG following her EMG nerve conduction study. On exam, temperature 98.4, pulse 81, respirations 16, blood pressure 127/73. She is alert and oriented x3 with normal speech and comprehension. Chest is clear. Cardiovascular: Regular rate and rhythm. Abdomen: Soft with positive bowel sounds. Her EMG nerve conduction study showed normal long tract findings and normal motor conduction velocity, but with absent sensory action potentials consistent with primarily a sensory neuropathy. Even though the brain MRI scan which was read by the radiologist is normal, I thought that there was significant sulci for age, suggestive of possible atrophy both in the cerebral hemispheres and the cerebellum. We started the IVIG. The mutual plan by Dr. Schwartz for possible paraneoplastic syndrome given the rapid decline while we are awaiting the test results. I have called in to him and want to discuss the MRI scan findings with him as well. We discussed with the patient risks, and side effects of the and what we are hoping to achieve with it as well. Thank you for sharing her case. [id number]/[facility] #: [id number] [facility]
== END 2017-12-18 13:40 | disposition home or self-care (01) ==
LOC: MED 10:47
PROVIDERS: ADMIT Internal Medicine Hematology & Oncology; ATTEND Internal Medicine Hematology & Oncology
DX: G62.9 Polyneuropathy, unspecified (principal); Z87.81 Personal history of (healed) traumatic fracture; Z85.048 Personal history of other malignant neoplasm of rectum, rectosigmoid junction, and anus; R20.0 Anesthesia of skin; R97.0 Elevated carcinoembryonic antigen [CEA]
CPT/HCPCS: A9270-GY; A9579; G0378; G8427; J1572; J3411; Q9967

== ENCOUNTER → 2018-01-11 11:14 | Emergency (ER) | payer OTHER ==
[~2018-01-11 11:14] MED LIST: HYDROmorphone INJ* 0.5 MG/0.5 ML SYRINGE IV SLOW PU ONE; HYDROmorphone INJ* 0.5 MG/0.5 ML SYRINGE ONE; HYDROmorphone INJ* 2 MG/ML CARPUJECT SYRINGE IV SLOW PU ONE; HYDROmorphone INJ1* 1 MG/ML SYRINGE IV SLOW PU ONE; HYDROmorphone INJ1* 1 MG/ML SYRINGE ONE; Iohexol 300* (CONTRAST) 10 ML SDV IV ONE; Magnesium Sulfate 2 GM IV* 2 GM/50 ML BAG IVPB ONE; Morphine VIAL* 4 MG/ML VIAL (1 ml vial) IV ONE; NS 0.9% 1000 ML* 1,000 ML IV ONE; Ondansetron INJ* 2 MG/ML VIAL IV ONE
--- OUTSIDE RECORDS SUMMARY | 2018-01-11 11:21 | XMS REPORT | Continuity of Care Document ---
:1970 External Reference #:[id number] Author Name Ananya Crawford Care Team Providers Name Role Phone Atilio Harry M.D. Primary Care Physician Unavailable Payers Type Date Identification Numbers Payment Provider Subscriber Policy Number: [id number] [employer] Radha Valdez Group Number: [id number] [address] PayID: [id number] [place] [address] Advance Directives Description No Information Available Problems Description No Information Family History Date Family Member(s) Problem(s) Comments General Arthritis, Osteo General Arthritis Father Blood Disorder Mother Rheumatoid Arthritis Mother Kidney Disease Maternal Grandfather due to [place] () - age 60 Social History Type Date Description Comments Sex Unknown Marital Status Lives With Spouse 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 [employer] Tobacco Use Start: Unknown Occasionally Smokes On and off 20 yrs Cigarettes ETOH Use Occasionally consumes wine cooler/beer alcohol 6-7 drinks per week Tobacco Use Start: Unknown End: Patient is a former quit isn 2009 smoked Unknown smoker on/off for 18 yrs 1/2 ppd Smoking Status Reviewed: 01/06/18 Patient is a former quit isn 2010 smoked smoker on/off for 18 yrs 1/2 ppd Exercise Exercises regularly Type/Frequency Allergies, Adverse Reactions, Alerts Date Description Reaction Status Severity Comments 01/24/2009 contrast dye severe GI reaction Active CT scan 08/14/2017 Cipro Active GI 03/09/2008 NKDA Inactive Medications Medication Date Status Form Strength Qnty SIG Indications Ordering Provider Solu-Medrol 01/06/ Active Solution Rec 1000mg 3unit 1000 mg iv G62.9 Ramses French 2017 s in 100 cubic [place], centimeters M.D. ns infuse everyday for 3 days Famotidine 01/06/ Active Tablets 40mg 30tab 1 po qd G62.9 Ramses French 2017 s Dayanna Schwartz Gabapentin 10/21/ Active Capsules 100mg 45cap take 1 R20.8 Johny 2017 s capsule by Tona, mouth at M.D. night for 1 week then 1 by mouth twice daily ongoing Compression 10/21/ Active Misc 2unit please use R20.8 Johny Stockajith 2017 s daily as Tona, needed for M.D. leg/foot swelling Prolia 10/05/ Active Solution 60mg/ml 60mg 60 mg sc Johny 2017 q6mon Dayanna Carbone Compression 08/14/ Active Misc 2unit please use Johny Stockajith 2017 s daily as Tona, needed for M.D. leg/foot swelling B12 Fast 08/14/ Active Tablets 5000mcg 90tab sublingual Johny Dissolve 2017 Dispers s daily Dayanna Carbone Percocet 01/24/ Active Tablets 5-325mg 40tab 1 po q4h prn Jj 2008 s Manolo Garber M.D. Multi Vitamin 03/09/ Active Tablets 90tab 1 po qd Jj 2008 Manolo Garber M.D. Calcium 600 / Active Tablets 2 by mouth Unknown 0000 every day Melatonin / Active Capsules 1 tab by Unknown 0000 mouth at bedtime as needed for insomnia Famotidine / Active Tablets 40mg 1 by mouth Unknown 0000 twice a day, as needed Advil / Active Tablets 200mg as needed Unknown 0000 Creon / Active Caps DR Chapman [id number] 1 po qd Unknown 0000 Lorazepam / Active Tablets 1mg 2 po daily Unknown 0000 Oxycontin / Active Tab ER 12H 10mg 1 tab As Unknown 0000 Abuse-Det needed Ativan 01/24/ Hx Tablets 0.5mg 10tab 1 po qd prn Jj 2008 - s S. 12/14/ Shirlene Moser M.D. Lidicaine 03/09/ Hx Tablets 90tab Mouth Rinse Qutaybeh 2008 3-4 X Day S. 01/24/ Shirlene Anne M.D. Miracle Mouth 03/09/ Hx Liquid 2Teaspoon 30uni qid Jose Luistaybeh Wash 2009 - s ts S. 06/30/ Shirlene Anne M.D. Vicodin 03/09/ Hx Tablets 5-500mg 180ta 1 q 4-6 tayb 2008 - bs hours prn S. 01/24/ Patelydaraceli Anne M.D. Immodium 03/09/ Hx 2mg 30uni 1 po qd prn Qutayb 2008 - ts S. 06/30/ Shirlene Anne M.D. carafate 03/09/ Hx Suspension 1GM/10ML 1Bott place on tayb 2008 - le lips S. 04/06/ hathomas Anne M.D. Lorazepam 03/09/ Hx Tablets 1mg 30tab 1 q 6 hours tayb 2008 - s prn S. 01/24/ Shirlene 2008 Dayanna Lidoderm 03/09/ Hx Patches 5% 30uni apply [facility] 2008 - topically qd S. 01/24/ prn Shirlene Anne M.D. Biotin / Hx Capsules Unknown 0000 - 2017 Vitamin / Hx Tablets 1 by mouth Unknown B-Complex 0000 - every day 2017 Immunizations Description No Information Available Vital Signs Date Vital Result Comment 01/06/2018 12:27pm Height 64 inches 5'4" Weight 92.00 lb Heart Rate 84 /min BP Systolic Sitting 104 mmHg BP Diastolic Sitting 74 mmHg Respiratory Rate 16 /min BMI (Body Mass Index) 15.8 kg/m2 12/15/2017 10:31am Height 64 inches 5'4" Weight 96.12 lb Heart Rate 88 /min BP Systolic 102 mmHg BP Diastolic 80 mmHg Respiratory Rate 16 /min BMI (Body Mass Index) 16.5 kg/m2 10/21/2017 3:07pm Height 64 inches 5'4" Weight 98.00 lb Heart Rate 87 /min BP Systolic Sitting 100 mmHg BP Diastolic Sitting 71 mmHg Respiratory Rate 14 /min Pain Level 5 BMI (Body Mass Index) 16.8 kg/m2 09/08/2017 3:52pm Height 64 inches 5'4" Weight 97.00 lb Heart Rate 96 /min BP Systolic Sitting 94 mmHg BP Diastolic Sitting 66 mmHg Respiratory Rate 14 /min Pain Level 2 BMI (Body Mass Index) 16.6 kg/m2 08/14/2017 12:08pm Height 64 inches 5'4" Weight 98.12 lb Heart Rate 68 /min BP Systolic Sitting 98 mmHg BP Diastolic Sitting 68 mmHg Respiratory Rate 14 /min Pain Level 2 BMI (Body Mass Index) 16.8 kg/m2 01/24/2009 9:40am Weight 102.00 lb Heart Rate 84 /min BP Systolic Sitting 90 mmHg BP Diastolic Sitting 62 mmHg Respiratory Rate 16 /min 06/30/2008 3:10pm Height 65 inches 5'5" Weight 104.00 lb Heart Rate 64 /min BP Systolic Sitting 90 mmHg L BP Diastolic Sitting 64 mmHg L BMI (Body Mass Index) 17.3 kg/m2 04/06/2008 4:09pm Weight 115.00 lb Heart Rate 68 /min BP Systolic Sitting 98 mmHg BP Diastolic Sitting 64 mmHg Respiratory Rate 16 /min 03/09/2008 10:24am Height 64 inches 5'4" Weight 121.00 lb Heart Rate 72 /min BP Systolic Sitting 90 mmHg BP Diastolic Sitting 62 mmHg BP Systolic Standing 100 mmHg BP Diastolic Standing 70 mmHg Respiratory Rate 14 /min BMI (Body Mass Index) 20.8 kg/m2 Results Test Date Facility Test Result H/L Range Note Basic Metabolic 12/29/2017 [facility] Sodium 130 mmol/L Low 135-[address] [place] [address] [phone] Potassium 4.4 mmol/L N 3.5-5.0 Chloride 95 mmol/L Low 101-111 Co2 Carbon Dioxide 29 mmol/L N 22-32 Anion Gap 6 mmol/L N 2-11 Glucose 138 mg/dL High 70-100 Blood Urea Nitrogen 3 mg/dL Low 6-24 Creatinine 0.48 mg/dL Low 0.51-0.95 BUN/Creatinine Ratio 6.3 Low 8-20 Calcium 8.2 mg/dL Low 8.6-10.3 Egfr Non- 138.0 >60 Egfr 167.0 >60 1 Vitamin B12 10/05/2017 [facility] Vitamin B12 > 1450 pg/mL High 180-914 [address] Folate [address] [place] [address] [phone] Folic Acid (Folate) 15.74 ng/mL >3.99 3 Connective Tissue 08/25/2017 [facility] Anti-Nuclear Antibody 0.2 U [address] [place] [address] [phone] Cyclic Citrullinated Peptide <15.6 U 5 Interpretation See Comment 6 Laboratory test 08/25/2017 [facility] Vitamin D, 1,25 75 pg/mL 18-78 [address] [place] [address] [phone] Free T4 (Free Thyroxine) 0.81 ng/dL N 0.61-1.12 8 Thyroperoxidase AB 17.72 IU/mL High <9 9 Hla B27 08/25/2017 [facility] Hla B27 Negative [address] [place] [address] [phone] Hla B27 Interp See Comment 11 Laboratory test 08/25/2017 [facility] Mitochondrial AB <0.1 U [address] [place] [address] [phone] CBC Auto Diff 08/07/2017 [facility] White Blood Count 7.7 N 3.5-[address] 10^3/uL 0.8 [place] [address] [phone] Red Blood Count 3.42 10^6/uL Low 4.00-5.40 Hemoglobin 12.6 g/dL N 12.0-16.0 Hematocrit 37 % N 35-47 Mean Corpuscular Volume 107 fL High 80-97 13 Mean Corpuscular Hemoglobin 37 pg High 27-31 Mean Corpuscular HGB Conc 34 g/dL N 31-36 Red Cell Distribution Width 15 % N 10.5-15 Platelet Count 267 10^3/uL N 150-450 Mean Platelet Volume 7.6 um3 N 7.4-10.4 Abs Neutrophils 4.5 10^3/uL N 1.5-7.7 Abs Lymphocytes 2.4 10^3/uL N 1.0-4.8 Abs Monocytes 0.6 10^3/uL N 0-0.8 Abs Eosinophils 0 10^3/uL N 0-0.6 Abs Basophils 0.1 10^3/uL N 0-0.2 Abs Nucleated RBC 0 10^3/uL Granulocyte % 59.1 % N 38-83 Lymphocyte % 31.5 % N 25-47 Monocyte % 8.1 % High 0-7 Eosinophil % 0.5 % N 0-6 Basophil % 0.8 % N 0-2 Nucleated Red Blood Cells % 0 Comp Metabolic Panel 08/07/2017 [facility] Sodium 135 mmol/L N 135-[address] [place] [address] [phone] Potassium 4.1 mmol/L N 3.5-5.0 Chloride 98 mmol/L Low 101-111 Co2 Carbon Dioxide 31 mmol/L N 22-32 Anion Gap 6 mmol/L N 2-11 Glucose 113 mg/dL High 70-100 Blood Urea Nitrogen 5 mg/dL Low 6-24 Creatinine 0.48 mg/dL Low 0.51-0.95 BUN/Creatinine Ratio 10.4 N 8-20 Calcium 8.7 mg/dL N 8.6-10.3 Total Protein 5.5 g/dL Low 6.4-8.9 Albumin 2.8 g/dL Low 3.2-5.2 Globulin 2.7 g/dL N 2-4 Albumin/Globulin Ratio 1.0 N 1-3 Total Bilirubin 0.40 mg/dL N 0.2-1.0 Alkaline Phosphatase 199 U/L High 34-104 Alt 20 U/L N 7-52 Ast 35 U/L N 13-39 Egfr Non- 138.0 >60 Egfr 167.0 >60 14 Laboratory 08/07/2017 [facility] Carcinoembryonic 19.0 High 0.1-5.0 15 test finding [address] Antigen Cea ng/[place] [address] [phone] 1 Because ethnic data is not always readily [...] 15-29 5 Kidney failure <15 (or dialysis) 2 Normal Range 180 to 914 Indeterminate Range 145 to 180 Deficient Range <145 3 Please check labs 2 weeks 4 REFERENCE VALUE <=1.0 (Negative) 5 REFERENCE VALUE <20.0 (Negative) 6 Tests for antibodies to dsDNA and YAA antigens are not performed automatically unless the IVONNE result is > or= 3.0 U. Studies performed at [facility] indicate that positive IVONNE results <3.0 U are rarely accompanied by positive second order tests. Test Performed by: [facility] - [address] [address] 7 ADDITIONAL INFORMATION This test was developed and its performance characteristics determined by [facility] in a manner consistent with CLIA requirements. This test has not been cleared or approved by the U.S. Food and Drug Administration. Test Performed by: [facility] - [facility] [address] [place] [address] 8 Please check labs this week 9 Please check labs this week 10 REFERENCE VALUE Not Applicable 11 RESULT: HLA-B27 antigen was not detected. ADDITIONAL INFORMATION Method: Flow Cytometry Performing Laboratory CLIA# [id number] Test Performed by: [facility] - [address] [address] 12 REFERENCE VALUE <0.1 (Negative) Test Performed by: [place] [address] [facility], [place] [address] 13 Consistent with Previous Results Reported on 04/08/17 14 Because ethnic data is not always readily [...] 15-29 5 Kidney failure <15 (or dialysis) 15 Nonsmokers: < 2.9 ng/mL Some smokers may have elevated CEA, usually <5.0 ng/mL. Serum markers are not specific for malignancy, and values may vary by method. The testing method is an immunoenzymatic assay duplicating machine operator by [employer] performed on [employer] DXI 600. Do not interpret serum CEA levels as absolute evidence of the presence or the absence of malignant disease. Use serum CEA in conjunction with information from the clinical evaluation of the patient and other diagnostic procedures. Procedures Date Code Description Status 08/25/2017 284984740 Bone Mineral Density Test Completed 01/24/2009 44888 EKG Tracing & Interpretation Completed 01/19/2009 51750 Holter Monitor Interpretation Completed 03/27/2008 43072 Color Doppler Completed 03/27/2008 01846 Pulse Doppler & Continuous Wave Completed 03/27/2008 46852 Echocardiogram Completed 03/27/2008 34404 ECHO Transthoracic, Real-Time 2D With Doppler And Completed Color Flow 03/24/2008 75938 ECHO Stress Test Incl Perf Contiuous ekg Monitoring Completed W/Phys Superv 03/24/2008 09632 ECHO/Stress Completed 03/24/2008 58264 ECHO/Stress Completed 03/24/2008 99451 Stress Test Completed 03/24/2008 41701 Stress Test Completed 03/09/2008 76449 EKG Tracing & Interpretation Completed 02/29/2008 36016 Holter Monitor Interpretation Completed Encounters Type Date Location Provider Dx Diagnosis Office Visit 12/15/2017 [place] [facility] Alfredo French R20.8 Other disturbances 10:00a [facility] Schwartz M.D. 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 of skin sensation E53.9 Vitamin B deficiency, unspecified M81.0 Age-related osteoporosis w/o current pathological fracture R74.8 Abnormal levels of other serum enzymes Office Visit 09/08/2017 3:40p Rheumatology Jonhy M81.0 Age-related Services [facility] Jorden Carbone M.D. osteoporosis w/o current pathological fracture R20.8 Other disturbances of skin sensation R74.8 Abnormal levels of other serum enzymes E06.9 Thyroiditis, unspecified E53.9 Vitamin B deficiency, unspecified Office Visit 08/14/2017 12:00p Rheumatology Johny R20.8 Other disturbances [facility] J[facility] Carbone M.D. of skin sensation G89.29 Other chronic pain E53.8 Deficiency of other specified B group vitamins M81.0 Age-related osteoporosis w/o current pathological fracture R60.0 Localized edema R74.8 Abnormal levels of other serum enzymes Office 10/31/2015 [facility] K85.2 Alcohol induced Visit 12:37p [facility]oc,SANDRA [facility] acute Hospitalists pancreatitis C20 Malignant neoplasm of rectum F10.10 Alcohol abuse, uncomplicated F41.9 Anxiety disorder, unspecified Office 10/30/2015 [facility] K85.2 Alcohol induced Visit 12:35p Assocsu PA acute Hospitalists pancreatitis C20 Malignant neoplasm of rectum F10.10 Alcohol abuse, uncomplicated F41.9 Anxiety disorder, unspecified Office 10/29/2015 [facility] K85.2 Alcohol induced Visit 12:34p Assoc,SANDRA Orta acute Hospitalists pancreatitis C20 Malignant neoplasm of rectum F10.10 Alcohol abuse, uncomplicated F41.9 Anxiety disorder, unspecified Office Visit 10/28/2015 [facility] Bruce Hdz K85.2 Alcohol induced 12:32p Assocsu II, M.D. acute Hospitalists pancreatitis C20 Malignant neoplasm of rectum F10.10 Alcohol abuse, uncomplicated F41.9 Anxiety disorder, unspecified Office Visit 01/24/2009 9:20a [facility] Qutaybeh S. 785.1 Palpitations Dayanna Garber 427.0 PSVT Paroxysmal Supraventricular Tachycardia 794.31 Electrocardiogram (ECG) (EKG) Abnormal Office Visit 06/30/2008 3:10p [facility] Qutaybeh S. 785.1 Palpitations Dayanna Garber 427.0 PSVT Paroxysmal Supraventricular Tachycardia Office Visit 04/06/2008 4:00p [facility] Qutaybeh S. 785.1 Palpitations Dayanna Garber 427.0 PSVT Paroxysmal Supraventricular Tachycardia Office Visit 03/09/2008 9:40a [facility] Qutaybeh S. 785.1 Palpitations Dayanna Garber 427.0 PSVT Paroxysmal Supraventricular Tachycardia 794.31 Electrocardiogram (ECG) (EKG) Abnormal Plan of Treatment Future Appointment(s):01/13/2018 12:00 pm - Ramses Schwartz M.D. at [facility]01/06/2018 - Ramses Schwartz M.D.G62.9 Polyneuropathy, unspecifiedNew Medication:Solu-Medrol 1000 mg - 1000 mg iv in 100 cubic centimeters ns infuse everyday for 3 daysFamotidine 40 mg - 1 po qdFollow up:IV solumedrol at infusion center follow up next week after steroidsRecommendations:take famotidine twice a day while on dztbsictY02.0 Anesthesia of skin
--- NOTE | 2018-01-11 11:51 | ED ---
Abdominal Pain/Female - HPI Summary HPI Summary: Patient is a 47-year-old female who presents emergency department for severe abdominal pain that started last night. Patient is a history of remote colon cancer with bowel resection. History of pancreatitis and pseudocyst. Patient also notes history of neuropathy and is receiving immunoglobulin infusions from neurologist. Patient currently prescribed Percocet and OxyContin extended release. Patient notes pain is to left upper quadrant wraps around to her back and is seeing patient experienced before with her pancreatitis. Pt. denies SOB, fever, CP, diarrhea, dysuria. Not nausea without vomiting. Pt. states pain has been crippling and had to carry her out of house. Pt. notes she see GI in [place]. Symptoms are moderate in severity. Movement makes sxs worse. Nothing makes sxs better. - History of Current Complaint Chief Complaint: EDAbdPain Stated Complaint: ABD PAIN Time Seen by Provider: 01/11/18 11:22 Hx Obtained From: Patient Pain Intensity: 9 Allergies/Adverse Reactions: Allergies Allergy/AdvReac Type Severity Reaction Status Date / Time ciprofloxacin AdvReac Mild Diarrhea Verified 01/11/18 11:20 Home Medications: Home Medications Calcium Citrate/Vitamin D3 [Calcium Citrate+D3 315-250 mg-Unit] 1 tab PO DAILY 01/11/18 [History Confirmed 01/11/18] Famotidine TAB* [Pepcid 20 MG TAB*] 40 mg PO DAILY 01/11/18 [History Confirmed 01/11/18] Folic Acid TAB* [Folvite TAB*] 1 mg PO DAILY 01/11/18 [History Confirmed ] Multivitamins/Minerals TAB* [Theragran/minerals TAB*] 1 tab PO DAILY 01/11/18 [ History Confirmed 01/11/18] Psyllium ALMA* [Metamucil ALMA*] 1 pkt PO DAILY PRN 01/11/18 [History Confirmed ] Thiamine TAB* [Vitamin B-1 TAB*] 100 mg PO BID 01/11/18 [History Confirmed 01/11] oxyCODONE SR TAB(*) [Oxycontin 10 mg (*)] 10 mg PO BID MDD 20 mg 01/11/18 [ History Confirmed 01/11/18] PMH/Surg Hx/FS Hx/Imm Hx Previously Healthy: Yes Endocrine/Hematology History: Denies: Hx Diabetes, Hx Thyroid Disease Cardiovascular History: Denies: Hx Hypertension, Hx Pacemaker/ICD Respiratory History: Denies: Hx Asthma, Hx Chronic Obstructive Pulmonary Disease (COPD) GI History: Reports: Other GI Disorders - Rectal CX 2007 Denies: Hx Ulcer History: Denies: Hx Renal Disease Musculoskeletal History: Reports: Hx Orthopedic Injury - Pelvic fracture, Hx Osteoporosis, Other Musculoskeletal History - OSTEOPOROSIS Sensory History: Reports: Hx Contacts or Glasses Denies: Hx Deafness, Hx Hearing Aid Opthamlomology History: Reports: Hx Contacts or Glasses Neurological History: Reports: Other Neuro Impairments/Disorders - neuropathy Psychiatric History: Denies: Hx Panic Disorder - Cancer History Cancer Type, Location and Year: COLONORECTAL CA Hx Chemotherapy: Yes - COLORECTAL CANCER, 2008 Hx Radiation Therapy: Yes - Surgical History Surgery Procedure, Year, and Place: lower anterior bowel resection 05/2008;. VERTEBRAPLASTY - LUMBAR REGION ~2016. PELVIC FX. RECTUM AND 13 INCHES OF SIGMOID COLON REMOVED Infectious Disease History: No Infectious Disease History: Denies: Hx Clostridium Difficile, Hx Hepatitis, Hx Human Immunodeficiency Virus (HIV), Hx of Known/Suspected MRSA, Hx Shingles, Hx Tuberculosis, Hx Known/ Suspected VRE, Traveled Outside the [place] in Last 30 Days - Family History Known Family History: Positive: Unknown, Other - Colon CA - Social History Occupation: Employed Full-time Lives: With Family Alcohol Use: None Alcohol Amount: 2x/week Substance Use Type: Reports: Prescribed Smoking Status (MU): Former Smoker Type: Cigarettes Review of Systems Constitutional: Negative Negative: Fever, Chills Eyes: Negative ENT: Negative Cardiovascular: Negative Respiratory: Negative Positive: Abdominal Pain, Nausea. Negative: Vomiting, Diarrhea Genitourinary: Negative Musculoskeletal: Negative Skin: Negative Neurological: Negative All Other Systems Reviewed And Are Negative: Yes Physical Exam Triage Information Reviewed: Yes Vital Signs On Initial Exam: Initial Vitals Temp Pulse Resp BP Pulse Ox 99 F 116 18 127/98 98 01/11/18 11:16 01/11/18 11:16 01/11/18 11:16 01/11/18 11:16 01/11/18 11:16 Vital Signs Reviewed: Yes Appearance: Positive: Pain Distress - Pt. lying in bed in position, tearful. Significant other present. Very thin. Appears older than states age. Skin: Positive: Warm, Dry Head/Face: Positive: Normal Head/Face Inspection Eyes: Positive: Normal, EOMI Neck: Positive: Supple Respiratory/Lung Sounds: Positive: Clear to Auscultation, Breath Sounds Present Cardiovascular: Positive: Normal, RRR Abdomen Description: Positive: Other: - Diffuse abd. tenderness, mostly to the left and right upper quadrants. No rebound tenderness. Neurological: Positive: Normal, CN Intact II-III Psychiatric: Positive: Anxious Diagnostics - Vital Signs Vital Signs Temp Pulse Resp BP Pulse Ox 01/11/18 11:31 105 137/100 96 01/11/18 11:16 99 F 116 18 127/98 98 - Laboratory Result Diagrams: 01/11/18 11:56 01/11/18 11:56 Lab Statement: Any lab studies that have been ordered have been reviewed, and results considered in the medical decision making process. Abdominal Pain Fem Course/Dx - Course Course Of Treatment: Patient presenting with severe abdominal pain. She is normally tachycardic vital signs are stable. She is afebrile. Patient placed on monitor and IV started. Patient given IV fluids, Zofran and morphine. Labs and CT scan will be obtained. Reading per radiology:IMPRESSION: Hepatic steatosis. Cystic lesion in the tail of the pancreas consistent with. resolving pancreatic pseudocyst. No cholelithiasis or biliary duct dilatation is noted. No other masses or fluid. collections are noted. CMP is mainly at her baseline other than low magnesium of 1.5 and minimally elevated lipase of 86. Pt. requiring numerous doses of IV pain medication. Results discussed with pt. Pt. concerned about the amount of abd. pain. She is concerned bc pain is not managed by her home pain medications. GIven pt.'s hx and amount of pain she is having, hospitalist was consulted. I spoke with Dr. Sotomayor, hospitalist, and he does not see a reason for admission. He recommends pain control and replace mag. Case discussed with Dr. Nazario who recommends hospitalist consult. I spoke with Dr. Sotomayor again and they will consult on pt. 1729: Hospitalist in to see pt. After evaluation hospitalist agreed to admit pt. for pain control but pt. would now prefer to go home if her pain can be managed outpt. FACILITIES SPECIALIST discussed pain control with Dr. Temple who recommends switching percocet to oxycodone 10mg Q 4h. Pt. to dc percocet. Will treat with nystatin for oral thrush. To call her PCP tomorrow for a close f.u apt. Will return to ER if sxs change or worsen. - Diagnoses Differential Diagnosis: Positive: Abdominal Aortic Aneurysm, Appendicitis, Bowel Obstruction, Constipation, Diverticulitis, Hepatitis, Pancreatitis Provider Diagnoses: Abdominal pain, Oral thrush Discharge - Sign-Out/Discharge Documenting (check all that apply): Patient Departure - Discharge Plan Condition: Improved Disposition: HOME Prescriptions: Nystatin SUSPENSION* 100,000 unit MT QID #240 ml Ondansetron TAB* [Zofran 4 MG Tab*] 4 mg PO Q6H PRN #12 tab PRN Reason: Nausea Oxycodone TAB(NF) [Oxycodone HCl 10 MG] 10 mg PO Q4H PRN #20 tab MDD 6 tablets PRN Reason: Pain - Severe Patient Education Materials: Oral Candidiasis (ED), Acute Abdominal Pain (ED) Referrals: Atilio Harry MD [Primary Care Provider] - Additional Instructions: Call your PCP tomorrow for an appointment tomorrow Take oxycodone 10mg instead of percocet Use mouth wash as directed Return to ER for increased pain, fever, vomiting or if concerned - Billing Disposition and Condition Condition: IMPROVED Disposition: Home
[2018-01-11 12:12] LABS: Hematocrit 36 % (35-47); Hemoglobin 12.2 g/dl (12.0-16.0); Mean Corpuscular HGB Conc 34 g/dl (31-36); Mean Corpuscular Hemoglobin 37 pg (27-31); Mean Corpuscular Volume 107 fL (80-97); Platelet Count 168 10^3/ul (150-450); Red Blood Count 3.33 10^6/ul (4.00-5.40); Red Cell Distribution Width 15 % (10.5-15); White Blood Count 9.5 10^3/ul (3.5-10.8)
[2018-01-11 12:29] LABS: EGFR Non-African American 165.6 (>60)
[2018-01-11 12:41] LABS: Monocytes % 6 %
[2018-01-11 12:43] LABS: ABS Neutrophils 8.5 10^3/ul (1.5-7.7)
[2018-01-11 13:53] LABS: Urine Appearance Clear; Urine Blood Negative (Negative); Urine Color Straw; Urine Ketones Negative (Negative); Urine Protein Negative (Negative); Urine Specific Gravity 1.003 (1.010-1.030); Urine Urobilinogen Negative (Negative)
[2018-01-11 18:43] VITALS: BP 155/97
--- NOTE | 2018-01-12 06:27 | CONS ---
[facility] MEDICINE CONSULTATION REPORT: DATE OF CONSULT: 01/11/18 - EMERGENCY DEPT PROVIDER: Nicole Mena NP ATTENDING PHYSICIAN: Dr. Nazario/SANDRA Hdz CONSULTING PHYSICIAN: Dr. Shayna Temple (dictated by Nicole Mena NP) REASON FOR CONSULT: Abdominal pain. HISTORY OF PRESENT ILLNESS: Ms. Valdez is a 47-year-old female with a past medical history significant for colorectal cancer, status post chemo, in remission; neuropathy; history of anal fissure and small bowel obstruction; osteoporosis, who presented to the emergency room with upper abdominal pain. The patient states that she is seeing Neurology and was started on Solu-Medrol infusion. She had recently had a Solu-Medrol infusion and since has developed upper abdominal pain that escalated last night, more on the left side. She reports left upper quadrant pain that wraps around her back and the patient has same pain she has experienced with pancreatitis. The patient denies shortness of breath, fever, chest pain, diarrhea, dysuria. Does report nausea without vomiting. Movement makes the symptoms worse. Due to her severe upper abdominal pain, we are asked to see the patient in consultation. PAST MEDICAL HISTORY: Significant for: 1. Colorectal cancer, status post chemo and radiation. 2. Neuropathy. 3. Osteoporosis. PAST SURGICAL HISTORY: Bowel resection. HOME MEDICATIONS: 1. OxyContin 10 mg p.o. b.i.d. 2. Oxycodone 5/325 two tablets t.i.d. 3. Folic acid 1 mg p.o. daily. 4. Thiamine 100 mg p.o. b.i.d. 5. Calcium 1 tab p.o. daily. 6. Psyllium pack 1 pack p.o. daily p.r.n. constipation. 7. Lorazepam 1 mg p.o. b.i.d. 8. Pepcid 40 mg p.o. daily. 9. Multivitamin 1 tab p.o. daily. ALLERGIES: CIPROFLOXACIN. FAMILY HISTORY: No reported history of coronary artery disease. Brother and sister with a history of diabetes. No reported history of cancer. SOCIAL HISTORY: The patient quit smoking, but does report occasional cigarette smoking, occasional alcohol use. Denies any illicit drug use. She is . Lives alone. Surrogate decisionmaker is her . She is a full code. REVIEW OF SYSTEMS: There has been no documented fever. No unintended weight loss. Denies chest pain or edema. Does report cough. Denies hemoptysis or shortness of breath. Does report nausea. Denies vomiting or diarrhea. Does report upper abdominal pain. Denies focal weakness or sensory loss. Denies visual complaints. Denies dysphagia, arthralgia, myalgias, rashes, lesions, sacral ulcers, or anxiety. PHYSICAL EXAMINATION: GENERAL: She appears uncomfortable, sitting on the stretcher in the emergency room. Color is pink. VITAL SIGNS: Blood pressure 116/86, heart rate is 92, respirations 18, and O2 saturation 97% on room air, and temperature is 98.5. NEUROLOGIC: She is awake, alert, and oriented x3. She is able to move all extremities. LUNGS: Clear to auscultation bilaterally. No wheezes, rales, or rhonchi. CARDIAC: S1, S2. Regular rate and rhythm. ABDOMEN: Diffuse tenderness to the upper abdominal and lower ribs, worse with palpation. Bowel sounds are present x4 and hypoactive. EXTREMITIES: No cyanosis or edema. SKIN: Intact. DIAGNOSTIC STUDIES/LABORATORY DATA: WBCs were 9.5, RBCs 3.33, hemoglobin 12.2, hematocrit was 36, platelet count was 168. Sodium 129, potassium 3.5, chloride 93, jasen dioxide was 32. Anion gap of 4. BUN was 8, creatinine 0.41. Calcium 8.4. Lactic acid 1.2. Magnesium 1.5. ASTs were 41 and ALTs were 29. Alkaline phosphatase was 178. C-reactive protein 12.28. Lipase was 86. IMPRESSION AND PLAN: Ms. Valdez is a 47-year-old female with past medical history significant for colorectal cancer with resection, chemo and radiation, who presented to the emergency room for upper abdominal pain, status post Solu- Medrol infusion of 1000 mg daily. Last given on 01/07/18. We were asked to see in consult by the Emergency Room due to upper abdominal pain. Our recommendations are as follows: 1. Acute upper abdominal pain. I suspect that this could be related to pancreatitis though her lipase level is only mildly elevated. I have offered admission to the patient for intractable pain management and monitoring overnight. The patient has declined admission. At this time, I would recommend changing her Percocet to plain oxycodone 10 mg and increasing frequency to q.4 hours. She can have Zofran as needed for nausea. I would also recommend a PPI b.i.d. as she could be experiencing upper epigastric and upper abdominal pain related to the recent Solu-Medrol infusion. I would repeat a lipase level tomorrow with a BMP and a repeat magnesium. 2. Hypomagnesium. She did receive magnesium in the emergency room. I would recommend a repeat magnesium level in 3 days. I would recommend a repeat lipase level tomorrow. 3. Thrush. I would recommend the patient have nystatin for home. The patient was offered admission for intractable pain management. The patient declined admission stating she would like to go home. This was relayed to the provider, Aj Michelle, in the emergency room. I recommend that she change her Percocet to plain oxycodone and increase it 10 mg q.4 hours as needed for pain and continue her home pain medications as previously prescribed to treat her neuropathy and chronic pain. Again, this patient was offered admission and declined admission to the hospital, that was relayed to the emergency room provider. TIME SPENT: Time spent on this consultation was 60 minutes, greater than half that time was spent with the patient reviewing events leading thus far to her hospitalization, performing physical exam, and reviewing my plan of care. I have discussed this with my attending, Dr. Shayna Temple; she is in agreement with my plan. NICOLE MENA, MELISSA [id number]/[facility] #: [id number] YOLY
== END | disposition home or self-care (01) ==
LOC: ED 11:14
DX: R10.12 Left upper quadrant pain (principal); B37.0 Candidal stomatitis; R11.0 Nausea; K76.0 Fatty (change of) liver, not elsewhere classified; K86.2 Cyst of pancreas; G62.9 Polyneuropathy, unspecified; Z85.038 Personal history of other malignant neoplasm of large intestine; Z88.1 Allergy status to other antibiotic agents; Z87.891 Personal history of nicotine dependence
CPT/HCPCS: 36415; 74177; 80053; 81003; 83605; 83690; 83735; 85025; 85060; 86140; 96365; 96375; 96376; 99283; J1170; J2270; J2405; J3475; Q9967

== ENCOUNTER 2018-01-13 12:58 | Inpatient (IN) | payer OTHER ==
[2018-01-13] MEDS ORDERED: NS 0.9% 1000 ML* 2,000 ML IV ONE (13:42)
[2018-01-13] MEDS ORDERED: Morphine VIAL* 4 MG/ML VIAL (1 ml vial) IV ONE (13:42)
[2018-01-13] MEDS ORDERED: Metoclopramide IV* 5 MG/ML 2 ML VIAL IV SLOW PU ONE (13:43)
[2018-01-13 13:53] LABS: ABS Basophils 0 10^3/ul (0-0.2); ABS Eosinophils 0.1 10^3/ul (0-0.6); ABS Monocytes 0.7 10^3/ul (0-0.8); ABS Neutrophils 4.2 10^3/ul (1.5-7.7); ABS Nucleated RBC 0 10^3/ul; Eosinophil % 1.6 %; Hematocrit 36 % (35-47); Hemoglobin 12.1 g/dl (12.0-16.0); Lymphocyte % 16.6 %; Mean Corpuscular HGB Conc 34 g/dl (31-36); Mean Corpuscular Hemoglobin 37 pg (27-31); Mean Corpuscular Volume 108 fL (80-97); Mean Platelet Volume 7.4 fL (7.4-10.4); Nucleated Red Blood Cells % 0.2; Platelet Count 186 10^3/ul (150-450); Red Cell Distribution Width 14 % (10.5-15)
--- NOTE | 2018-01-13 14:15 | ED ---
Abdominal Pain/Female - HPI Summary HPI Summary: This patient is a 47 year old F presenting to [facility] with a chief complaint of left upper abdomen pain that wraps to her back since 01/10/18. Patient had immunoglobulin infusion on 01/08/18 resulting in typical but mild nausea. Abdominal pain become unbearable three days ago when she came to the ED the next morning. During her visit a CT scan was performed and her lipase was WNL. Patient states admission for pain control was considered at the time but she ended up deciding to go home. Since then patient has been bed ridden. She states she is unable to sleep or drink and the nausea persists. Pain is 10/10 in severity. Denies vomiting and BMs. Reports decreased urine output that is odorous. Patient states symptoms are similar to a bout of pancreatitis in October of 2015 with limited symptoms since then. Reports pseudocyst. Reports previous bowel resection for colorectal CA. 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 Patient reports prescription for Percocet, for pelvic pain. - History of Current Complaint Chief Complaint: EDAbdPain Stated Complaint: ABD PAIN Time Seen by Provider: 01/13/18 13:20 Hx Obtained From: Patient Onset/Duration: Lasting Days, Still Present Timing: Constant Pain Intensity: 10 Pain Scale Used: 0-10 Numeric Location: Discrete At: LUQ Radiates: Yes Radiates to: Back Alleviating Factor(s): Nothing Associated Signs and Symptoms: Positive: Urinary Symptoms, Decreased Appetite, Nausea Allergies/Adverse Reactions: Allergies Allergy/AdvReac Type Severity Reaction Status Date / Time ciprofloxacin AdvReac Mild Diarrhea Verified 01/11/18 11:20 PMH/Surg Hx/FS Hx/Imm Hx Endocrine/Hematology History: Denies: Hx Diabetes, Hx Thyroid Disease Cardiovascular History: Denies: Hx Hypertension, Hx Pacemaker/ICD Respiratory History: Denies: Hx Asthma, Hx Chronic Obstructive Pulmonary Disease (COPD) GI History: Reports: Other GI Disorders - Rectal CA 2007, pancreatitis Denies: Hx Ulcer History: Denies: Hx Renal Disease Musculoskeletal History: Reports: Hx Orthopedic Injury - Pelvic fracture, Hx Osteoporosis, Other Musculoskeletal History - OSTEOPOROSIS Sensory History: Reports: Hx Contacts or Glasses Denies: Hx Deafness, Hx Hearing Aid Opthamlomology History: Reports: Hx Contacts or Glasses Neurological History: Reports: Other Neuro Impairments/Disorders - neuropathy Psychiatric History: Denies: Hx Panic Disorder - Cancer History Cancer Type, Location and Year: COLONORECTAL CA Hx Chemotherapy: Yes - COLORECTAL CANCER, 2008 Hx Radiation Therapy: Yes - Surgical History Surgery Procedure, Year, and Place: lower anterior bowel resection 05/2008;. VERTEBRAPLASTY - LUMBAR REGION ~2016. PELVIC FX. RECTUM AND 13 INCHES OF SIGMOID COLON REMOVED Infectious Disease History: No Infectious Disease History: Denies: Hx Clostridium Difficile, Hx Hepatitis, Hx Human Immunodeficiency Virus (HIV), Hx of Known/Suspected MRSA, Hx Shingles, Hx Tuberculosis, Hx Known/ Suspected VRE, Traveled Outside the [place] in Last 30 Days - Family History Known Family History: Positive: Other - Colon CA - Social History Alcohol Use: None Alcohol Amount: 2x/week, none recently Substance Use Type: Reports: Prescribed Smoking Status (MU): Former Smoker Type: Cigarettes Review of Systems Positive: Abdominal Pain, Diarrhea, Nausea. Negative: Vomiting Positive: other - decreased output, odor All Other Systems Reviewed And Are Negative: Yes Physical Exam - Summary Physical Exam Summary: Appearance: appears dehydrated and in pain, with mildly elevated heart rate. Skin: Warm, dry, skin tenting, dry mucosa membranes Eyes: sclera anicteric, no conjunctival pallor ENT: mucous membranes moist, pharynx appears normal Neck: Supple, nontender Respiratory: Clear to auscultation, no signs of respiratory distress Cardiovascular: Mildly tachycardic Normal S1, S2. No murmurs. Normal distal pulses in tibial and radial bilaterally. Abdomen: Soft, upper abdominal tenderness, normal active bowel sounds present Musculoskeletal: Normal, Strength/ROM Intact Neurological: A&Ox3, awake and alert, mentation is normal, speech is fluent and appropriate Psychiatric: affect is normal, does not appear anxious or depressed Triage Information Reviewed: Yes Vital Signs On Initial Exam: Initial Vitals Temp Pulse Resp BP Pulse Ox 97.6 F 126 20 129/87 100 01/13/18 13:00 01/13/18 13:00 01/13/18 13:00 01/13/18 13:00 01/13/18 13:00 Vital Signs Reviewed: Yes Diagnostics - Vital Signs Vital Signs Temp Pulse Resp BP Pulse Ox 01/13/18 13:57 16 01/13/18 13:16 99 100 01/13/18 13:14 102 133/92 98 01/13/18 13:00 97.6 F 126 20 129/87 100 - Laboratory Lab Results: Lab Results 01/13/18 Range/Units 13:35 WBC 6.0 (3.5-10.8) 10^3/ul RBC 3.30 L (4.00-5.40) 10^6/ul Hgb 12.1 (12.0-16.0) g/dl Hct 36 (35-47) % MCV 108 H (80-97) fL MCH 37 H (27-31) pg MCHC 34 (31-36) g/dl RDW 14 (10.5-15) % Plt Count 186 (150-450) 10^3/ul MPV 7.4 (7.4-10.4) fL Neut % (Auto) 70.1 % Lymph % (Auto) 16.6 % Burke % (Auto) 11.1 % Eos % (Auto) 1.6 % Baso % (Auto) 0.6 % Absolute Neuts (auto) 4.2 (1.5-7.7) 10^3/ul Absolute Lymphs (auto) 1.0 (1.0-4.8) 10^3/ul Absolute Monos (auto) 0.7 (0-0.8) 10^3/ul Absolute Eos (auto) 0.1 (0-0.6) 10^3/ul Absolute Basos (auto) 0 (0-0.2) 10^3/ul Absolute Nucleated RBC 0 10^3/ul Nucleated RBC % 0.2 Result Diagrams: 01/13/18 13:35 01/13/18 13:35 Lab Statement: Any lab studies that have been ordered have been reviewed, and results considered in the medical decision making process. Abdominal Pain Fem Course/Dx - Course Course Of Treatment: This is a 47-year-old woman with a complicated past medical and surgical history. She has a history of colorectal cancer and was operated on that 7 years ago and had adjuvant chemotherapy following. She developed neuropathy as a consequence of the chemotherapy, which is recently been treated with IVIG and Solu-Medrol. She also has a history of pancreatitis 2 years ago with what sounds to be minor exacerbations of same since then. She presented here on Thursday with a 2 day history of progressively worsening upper abdominal pain and vomiting and had an extensive workup including CT of the abdomen and lab studies which failed to show any definite evidence of pancreatitis. Eventually she declined admission, but returns now 2 days later with intractable pain and vomiting, appearing dehydrated. Repeat laboratory studies again failed to show evidence of pancreatitis. Nonetheless, I am concerned about her intractable severe pain and asked the hospitalist service to admit her for treatment and further workup. - Diagnoses Provider Diagnoses: Intractable upper abdominal pain - Provider Notifications Discussed Care Of Patient With: Myra Singh - hospitalist Time Discussed With Above Provider: 15:37 Instructed by Provider To: Admit As Inpatient Discharge - Sign-Out/Discharge Documenting (check all that apply): Patient Departure - admit - Discharge Plan Condition: Stable Disposition: ADMITTED TO [facility] Referrals: Atilio Harry MD [Primary Care Provider] - - Billing Disposition and Condition Condition: STABLE Disposition: Admitted to [facility] - Attestation Statements Document Initiated by Matthew: Yes Documenting Scribe: Chaya Omalley Provider For Whom Matthew is Documenting (Include Credential): Celso Stein MD Scribe Attestation: IChaya, scribed for Celso Stein MD on 01/13/18 at 1642. Scribe Documentation Reviewed: Yes Provider Attestation: The documentation as recorded by the ana cristinaibChaya cole accurately reflects the service I personally performed and the decisions made by me, Celso Stein MD Status of Scribe Document: Viewed
[2018-01-13 14:48] LABS: EGFR Non-African American 152.6 (>60)
[2018-01-13 15:05] LABS: Urine Appearance Clear; Urine Blood 1+ (Negative); Urine Color Amber; Urine Ketones 2+ (Negative); Urine Protein 1+(30 mg/dL) (Negative); Urine Red Blood Cell 2+(6-10/hpf) (Absent); Urine Specific Gravity 1.021 (1.010-1.030); Urine Urobilinogen Positive (Negative); Urine White Blood Cell 1+(6-10/hpf) (Absent)
[2018-01-13] MEDS: Morphine VIAL* 4 MG/ML VIAL (1 ml vial) IV SCH ×3 (15:31→17:54)
[2018-01-13] MEDS ORDERED: Ondansetron INJ* 2 MG/ML VIAL IV PRN (16:31)
[2018-01-13] MEDS ORDERED: Acetaminophen TAB* 325 MG PO PRN (16:31)
[2018-01-13] MEDS ORDERED: Magnesium Sulfate 2 GM IV* 2 GM/50 ML BAG IVPB ONE (16:41)
[2018-01-13] MEDS: HYDROmorphone INJ1* 1 MG/ML SYRINGE IV SLOW PU PRN ×2 (18:01→22:43)
[2018-01-13] MEDS: NS 0.9% 1000 ML* 1,000 ML IV SCH (18:05)
[2018-01-13] MEDS: Pantoprazole IV* 40 MG IV SCH (18:05)
[2018-01-13] MEDS: LORazepam TAB(*) 1 MG PO SCH (22:23)
[2018-01-13] MEDS: oxyCODONE SR TAB(*) 10 MG TAB.SR PO SCH (22:25)
[2018-01-13] MEDS: Nystatin SUSPENSION* 100000 UNITS/ML 5 ML UDC PO SCH (22:30)
[2018-01-13] MEDS: KCL 10 MEQ/50 ML IVPREMIX* 10 MEQ/50 ML BAG IV SCH (22:33)
[2018-01-14] MEDS: KCL 10 MEQ/50 ML IVPREMIX* 10 MEQ/50 ML BAG IV SCH ×2 (00:26→02:06)
--- NOTE | 2018-01-14 01:35 | HP ---
CC: Dr. Suad Mccall; Dr. Colón; Dr. Harry; Dr. Schwartz * HISTORY AND PHYSICAL: DATE OF ADMISSION: 01/13/18 PRIMARY CARE PROVIDER: Dr. Suad Mccall. ATTENDING PHYSICIAN WHILE IN THE HOSPITAL: Dr. Myra Grimes * (report dictated by Saad Glez NP). CHIEF COMPLAINT: Abdominal pain. HISTORY OF PRESENT ILLNESS: Ms. Valdez is a 47-year-old female patient who comes into the ED today with complaints of epigastric discomfort that got worse , she feels, after she had a Solu-Medrol infusion for neuropathy. She has been following closely since beginning of December with Dr. Schwartz for neuropathy. She said she has received IVIG treatments in addition to this also recently about a week ago. She was at the infusion clinic and underwent a infusion of Solu-Medrol. She said since then she has noted that she has had intermittent epigastric discomfort. She has not been feeling well. She has been feeling nauseous. She has been having difficulty with, again, epigastric discomfort. She says the pain mostly is in the epigastric area, radiating at times into her back. She says it feels like her similar picture of pancreatitis in the past. Of note, she does state that she did drink alcohol about a week ago. Since then , she has not drunk anything. She says that she has not had any fevers or chills associated with this. She describes it as a sharp, constant, stabbing pain in the epigastric area. She was concerned because the pain was just persisting, so she came back into the ER. She was seen here 2 days ago, offered admission for possible acute on chronic pancreatitis. She went home trying to control the pain herself. She tried bowel rest and tried taking her Percocet as needed for pain, but just was not helping. She says that she is not feeling any better. She did try eating a bagel yesterday and when she did, the pain did get worse. Because of the fact that she had worsening pain she has been feeling at home, not doing well, ER was concerned for possible, again, pancreatitis and we were asked to evaluate for admission. PAST MEDICAL HISTORY: Significant for: 1. Rectal cancer. 2. 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 3. Osteoporosis. 4. SBO. 5. Pancreatitis. She had noted atrophy on MRI of the abdomen previously and changes consistent with chronic pancreatitis on endoscopic ultrasound in the past. PAST SURGICAL HISTORY: She has had bowel resection. ALLERGIES TO MEDICATION: Include CIPRO and CT DYE causes her GI distress. FAMILY HISTORY: Her mother has a history of AMANDA and obesity and her father has a history of blood clots. SOCIAL HISTORY: She occasionally smokes. She says she occasionally drinks alcohol. She says her last drink was about a week ago. Surrogate decision maker is her . REVIEW OF SYSTEMS: There is no documented fever. She denied having any significant weight change. There is no double vision. She denies having any ear discharge. She denied having any rhinorrhea. There was no sore throat. There is no thyroid enlargement. She denies having any chest pain. There is no orthopnea. There is no nocturnal dyspnea. There is abdominal pain per my HPI. There was nausea, but there is no vomiting. There is no dysuria. There is no frequency. There was no seizure. There is no loss of consciousness. There is no pruritus and there is no skin ulceration. Review of 14 systems completed, all others negative. PHYSICAL EXAMINATION GENERAL: At this time, Ms. Valdez is a 47-year-old female patient. She is chronically ill appearing. She appeared to be older than stated age. She is sitting in the ED stretcher. She does not appear to be in any acute distress. VITAL SIGNS: Blood pressure 141/95, pulse 85, respirations 18, O2 sat 99%, temperature 98.1. HEENT: Head: Atraumatic and normocephalic. Eyes: EOMs are intact. Sclerae anicteric and not pale. Throat: Oral mucosa appears to be dry. No oropharyngeal erythema. NECK: Supple. LUNGS: Clear. No wheezes, rales, rhonchi. HEART: Sounds S1, S2. Regular rate and rhythm. No murmurs, rubs, or gallops. ABDOMEN: Soft, flat, nontender. Bowel sounds were present. There is significant tenderness in the epigastric area, but it was soft and flat. EXTREMITIES: Pulses were 2+ throughout. She is moving all 4 extremities with 5 /5 strength. NEUROLOGIC: She is awake, alert and oriented x3. Tongue midline. Banana Grader were equal. No gross focal deficits. SKIN: Grossly intact. DIAGNOSTIC STUDIES/LAB DATA: Labs: WBC of 6.0, RBC of 3.30, hemoglobin 12.1, hematocrit 36, platelet count 186. I do note that she has an elevated MCV and MCH, which is chronic. Sodium 130, potassium 3.4, chloride 94, bicarb 25, BUN 13, creatinine 0.44, glucose 93. Calcium 8.7, mag 1.6. Total bili 0.8, AST 29 , ALT 23, alk phos 170. Albumin of 2.8. She had urine obtained today, which showed 1+ protein, 2+ ketones, 1+ blood, positive urobilinogen, trace leukocyte esterase, 1+ wbc, absent bacteria. Toxicology pending for alcohol level. She did have a CT abdomen and pelvis just done 2 days ago, which showed hepatic steatosis, cystic lesion in the tail of the pancreas consistent with resolving pancreatic pseudocyst. No cholelithiasis or biliary duct dilatation is noted. No other masses or fluid collections are noted. Old medical records were reviewed. ASSESSMENT AND PLAN: Ms. Valdez is a 47-year-old female patient coming into the ED today with complaints of abdominal discomfort. We were asked to evaluate for admission. She will be admitted under observation status for: 1. Abdominal pain. My suspicion is that the patient certainly may have acute on chronic pancreatitis. What caused this, it could certainly be from alcohol consumption that she admits to having about a week ago. Also, Solu-Medrol according up-to-date can cause pancreatitis. However, at this point, I think what we should do to treat her is, certainly IV fluids, bowel rest, pain control , p.r.n. antiemetics. If she does not improve or any changing abdominal exam findings, low threshold for reimaging, but she just had a CT 2 days ago. I will , because she is having some pain in the back, check for any acute fractures of the thoracic and lumbar spine with a CT and we will continue to follow her with pain management, bowel rest, and IV hydration. 2. History of rectal cancer. Follow up with Dr. Harry. 3. Neuropathy. I will have her follow back up with Dr. Schwartz. We will continue to monitor. 4. Osteoporosis. Follow up PCP. She is supposedly going to be starting Prolia. 5. DVT prophylaxis: I have ordered SCDs. 6. Code status: Full code. 7. Fluids, electrolytes, and nutrition: She can be n.p.o. with the exception of her pain medications and ice chips. TIME SPENT: Time spent on the admission was 60 minutes, greater than half the time spent [id number] with the patient obtaining my history and physical; other half time spent going over the plan of care with the patient and implementing plan of care. I did discuss the plan of care with my attending, Dr. Grimes; she is in agreement. SAAD GLEZ, STIPPLER [id number]/[facility] #: [id number] [facility]
[2018-01-14] MEDS: NS 0.9% 1000 ML* 1,000 ML IV SCH ×2 (02:07→07:59)
[2018-01-14] MEDS: KCL premix 10MEQ/50 ML x 2 BAGS IV SCH ×2 (02:45→02:46)
[2018-01-14] MEDS: HYDROmorphone INJ1* 1 MG/ML SYRINGE IV SLOW PU PRN ×4 (02:55→22:14)
[2018-01-14 06:23] LABS: ABS Basophils 0 10^3/ul (0-0.2); ABS Eosinophils 0.1 10^3/ul (0-0.6); ABS Lymphocytes 1.4 10^3/ul (1.0-4.8); ABS Monocytes 0.6 10^3/ul (0-0.8); ABS Neutrophils 3.4 10^3/ul (1.5-7.7); ABS Nucleated RBC 0 10^3/ul; Eosinophil % 2.2 %; Hematocrit 33 % (35-47); Hemoglobin 11.2 g/dl (12.0-16.0); Lymphocyte % 25.2 %; Mean Corpuscular HGB Conc 34 g/dl (31-36); Mean Corpuscular Hemoglobin 37 pg (27-31); Mean Corpuscular Volume 109 fL (80-97); Nucleated Red Blood Cells % 0.2; Platelet Count 180 10^3/ul (150-450); Red Blood Count 3.05 10^6/ul (4.00-5.40); Red Cell Distribution Width 15 % (10.5-15); White Blood Count 5.6 10^3/ul (3.5-10.8)
[2018-01-14 06:25] LABS: INR 1.32 (0.77-1.02)
[2018-01-14 06:35] LABS: EGFR Non-African American 237.4 (>60)
[2018-01-14] MEDS ORDERED: Dextrose 50% Syringe 50 ML* 25 GM/50 ML SYRINGE IV PUSH PRN (06:42)
[2018-01-14] MEDS ORDERED: Dextrose 50% Syringe 50 ML* 25 GM/50 ML SYRINGE ONE (06:52)
[2018-01-14] MEDS: Nystatin SUSPENSION* 100000 UNITS/ML 5 ML UDC PO SCH ×4 (09:33→22:15)
[2018-01-14] MEDS: oxyCODONE SR TAB(*) 10 MG TAB.SR PO SCH ×2 (09:34→22:14)
[2018-01-14] MEDS: LORazepam TAB(*) 1 MG PO SCH ×2 (09:34→23:18)
[2018-01-14] MEDS: Pantoprazole IV* 40 MG IV SCH (16:36)
--- NOTE | 2018-01-14 16:44 | PN ---
Subjective Date of Service: 01/14/18 Interval History: Patient seen this morning after being called by nursing staff to assess the patient stating she is hungry and asking if she can eat. Available chart reviewed. and patient was seen and assess by me today as first encounter. The patient was witnessed to be resting comfortably and during my interview she had difficulty staying alert. However; she expressed increase distress secondary to abdominal pain and discomfort. She asked if she can be advanced to bland diet. Also she had questions if she will be seen by GI today and whether or not she will have Rx for pain medications to go home with. Past Medical History: Unchanged from Admission Objective Active Medications: Acetaminophen (Tylenol Tab*) 650 mg PO Q4H PRN PRN Reason: FEVER/PAIN Dextrose (D50w Syringe 50 Ml*) 25 gm IV PUSH ONCE PRN PRN Reason: FS < 60 Last Admin: 01/14/18 06:55 Dose: 25 gm Hydromorphone HCl (Dilaudid Inj1s*) 0.5 mg IV SLOW PU Q4H PRN PRN Reason: PAIN - SEVERE Last Admin: 01/14/18 13:40 Dose: 0.5 mg Sodium Chloride (Ns 0.9% 1000 Ml*) 1,000 mls @ 150 mls/hr IV PER RATE [facility] Last Admin: 01/14/18 02:07 Dose: 150 mls/hr Lorazepam (Ativan Tab(*)) 1 mg PO BID [facility] Last Admin: 01/14/18 09:34 Dose: 1 mg Nystatin (Nystatin Suspension*) 200,000 units PO QID [facility] Last Admin: 01/14/18 13:39 Dose: 200,000 units Ondansetron HCl (Zofran Inj*) 4 mg IV Q6H PRN PRN Reason: NAUSEA Oxycodone HCl (Oxycontin(*)) 10 mg PO BID [facility] Last Admin: 01/14/18 09:34 Dose: 10 mg Oxycodone HCl (Roxycodone Tab*) 10 mg PO Q8H PRN PRN Reason: PAIN - MODERATE TO SEVERE Pantoprazole Sodium (Protonix Iv*) 40 mg IV Q24H [facility] Last Admin: 01/13/18 18:05 Dose: 40 mg Vital Signs - 8 hr 01/14/18 01/14/18 01/14/18 08:53 09:34 11:04 Temperature 98.3 F Pulse Rate 80 Respiratory 15 16 16 Rate Blood Pressure 118/71 (mmHg) O2 Sat by Pulse 99 Oximetry 01/14/18 01/14/18 01/14/18 11:34 13:40 14:40 Temperature Pulse Rate Respiratory 15 15 15 Rate Blood Pressure (mmHg) O2 Sat by Pulse Oximetry 01/14/18 14:51 Temperature 98.3 F Pulse Rate 78 Respiratory 16 Rate Blood Pressure 142/95 (mmHg) O2 Sat by Pulse 100 Oximetry Oxygen Devices in Use Now: None Appearance: Awake, resting. initially patient had difficulty staying awake during the interview Eyes: No Scleral Icterus, - Ears/Nose/Mouth/Throat: NL Teeth, Lips, Gums, Mucous Membranes Moist Neck: NL Appearance and Movements; NL JVP, Trachea Midline Respiratory: Symmetrical Chest Expansion and Respiratory Effort Cardiovascular: NL Sounds; No Murmurs; No JVD, RRR Abdominal: NL Sounds; No Tenderness; No Distention, - - non specific tenderness to superficial palpations Extremities: No Edema Skin: No Rash or Ulcers Neurological: Alert and Oriented x 3 - Nutrition: Malnutrition Diagnosis/Plan Malnutrition Assessment by Registered Dietitian: Malnutrition Assessment Clinical Characteristics Acute,Severe Malnutrition Assessment: - < 50% estimated energy expenditure for 5 days Criteria - Moderate temporal muscle wasting, and fat wasting of upper extremities - Underwt status: BMI- 16.0 Malnutrition Assessment: - Pt declined offer for Ensure Enlive/Boost, as Interventions these have caused diarrhea - Pt agreed to try Ensure Clear tonight w/ dinner (240 kcals, 8 grams protein) Malnutrition Assessment: Goals 1. Adequate PO intake to promote wt repletion and hydration w/o undesired wt loss Result Diagrams: 01/14/18 06:08 01/14/18 06:08 Additional Lab and Data: Lab Results 01/13/18 Range/Units 13:35 WBC 6.0 (3.5-10.8) 10^3/ul RBC 3.30 L (4.00-5.40) 10^6/ul Hgb 12.1 (12.0-16.0) g/dl Hct 36 (35-47) % MCV 108 H (80-97) fL MCH 37 H (27-31) pg MCHC 34 (31-36) g/dl RDW 14 (10.5-15) % Plt Count 186 (150-450) 10^3/ul MPV 7.4 (7.4-10.4) fL Neut % (Auto) 70.1 % Lymph % (Auto) 16.6 % Elk % (Auto) 11.1 % Eos % (Auto) 1.6 % Baso % (Auto) 0.6 % Absolute Neuts (auto) 4.2 (1.5-7.7) 10^3/ul Absolute Lymphs (auto) 1.0 (1.0-4.8) 10^3/ul Absolute Monos (auto) 0.7 (0-0.8) 10^3/ul Absolute Eos (auto) 0.1 (0-0.6) 10^3/ul Absolute Basos (auto) 0 (0-0.2) 10^3/ul Absolute Nucleated RBC 0 10^3/ul Nucleated RBC % 0.2 Microbiology and Other Data: Microbiology 01/13/18 13:25 Urine Culture - Final Urine Assess/Plan/Problems-Billing Assessment: 47 year old female admitted for abdominal pain presumed chronic pancreatitis flare, failed outpatient management with oral opiate. - Patient Problems (1) Pancreatitis, chronic Current Visit: Yes Status: Acute Code(s): K86.1 - OTHER CHRONIC PANCREATITIS SNOMED Code(s): 577866318 Comment: -failed outpatient treatment with OralOpiate - Returned to ED for acute pain. currently still in pain. Will initiate oxycodone 10 ng Q8hrs, along with Decreasing IV dilaudid 0.5 mg Q 4 prn (down from 1 mg) - Will start full liquid diet - follow up GI input consulted already - Will check ISTOP and consult with primary prescriber of her narcotics as patient has utilized her prescription early due to the pancreatitis flare up (2) History of rectal cancer Current Visit: No Status: Acute Code(s): Z85.048 - PRSNL HX OF MALIG NEOPLM OF RECTUM, RECTOSIG JUNCT, AND ANUS SNOMED Code(s): 626819075 Comment: Followed by Dr Harry. (3) Idiopathic progressive neuropathy Current Visit: No Status: Acute Code(s): G60.3 - IDIOPATHIC PROGRESSIVE NEUROPATHY SNOMED Code(s): 175224804 (4) DVT prophylaxis Current Visit: Yes Status: Acute Code(s): EHK9396 - SNOMED Code(s): 206021830 Comment: - Will start lovenox 30 today
[2018-01-14] MEDS: oxyCODONE TAB* 5 MG TAB PO PRN (18:23)
[2018-01-15] MEDS: HYDROmorphone INJ1* 1 MG/ML SYRINGE IV SLOW PU PRN ×2 (02:50→06:51)
[2018-01-15] MEDS: oxyCODONE TAB* 5 MG TAB PO PRN ×2 (04:27→12:29)
[2018-01-15 07:27] LABS: ABS Basophils 0 10^3/ul (0-0.2); ABS Eosinophils 0.1 10^3/ul (0-0.6); ABS Lymphocytes 1.2 10^3/ul (1.0-4.8); ABS Monocytes 0.6 10^3/ul (0-0.8); ABS Neutrophils 2.2 10^3/ul (1.5-7.7); ABS Nucleated RBC 0 10^3/ul; Hematocrit 31 % (35-47); Hemoglobin 10.6 g/dl (12.0-16.0); Lymphocyte % 30.1 %; Mean Corpuscular HGB Conc 34 g/dl (31-36); Mean Corpuscular Hemoglobin 37 pg (27-31); Mean Corpuscular Volume 107 fL (80-97); Mean Platelet Volume 7.5 fL (7.4-10.4); Nucleated Red Blood Cells % 0.1; Platelet Count 165 10^3/ul (150-450); Red Blood Count 2.89 10^6/ul (4.00-5.40); Red Cell Distribution Width 14 % (10.5-15); White Blood Count 4.2 10^3/ul (3.5-10.8)
[2018-01-15 07:40] LABS: EGFR Non-African American 237.4 (>60)
[2018-01-15] MEDS ORDERED: Potassium Chlor TAB* 20 MEQ TAB.ER PO ONE ×2 (07:47→11:00)
[2018-01-15] MEDS ORDERED: Magnesium Sulfate 2 GM IV* 2 GM/50 ML BAG IVPB ONE (07:49)
[2018-01-15] MEDS: oxyCODONE SR TAB(*) 10 MG TAB.SR PO SCH (08:23)
[2018-01-15] MEDS: LORazepam TAB(*) 1 MG PO SCH (08:25)
[2018-01-15] MEDS: Nystatin SUSPENSION* 100000 UNITS/ML 5 ML UDC PO SCH ×3 (08:25→16:39)
--- NOTE | 2018-01-15 12:39 | PN ---
Subjective Date of Service: 01/15/18 Interval History: Patient was seen today around 12 pm with nurse Debora in the room present during the entire visit. The patient was expressing frustrations about her poor pain control and that she is not being listened to. I did spend about 30 minutes in the room and more than 50% was spent in counseling and educating patient about her pain control, and pain prescriptions and her refills of her narcotics. She was getting more defensive and emotional. I did elaborate using the ISTOP and [employer] registry as reference to reflect that her Rx from Dr. Harry are not due until today 01/15/18 and I will not be able to give her Rx as she will need to call Dr. Harry's office for refill. However; she did already call them before she was admitted on Thursday for refill and she was already told that they will not refill it on time as she did get Rx from the ER on Thursday01/11/18 for oxycodone 10 mg # 20 for 4 days! Hence, they were going to defer her fill date until 01/19? However; the patient was expecting I will be discharging her with the prescription as prescribed by Dr. Harry so she can fill my Rx in order to be released today to attend to her animal. I did explain again, and more than one time, that I will not be able to provide a Rx for narcotics that is normally prescribed by her outpatient provider. However; I explained to her that I did call and left a message to Dr. Lagos from pain management for consult to see the patient for recommendations. Meanwhile, I did discontinue her Dilaudid IV in preparation to transition to oral regimen, and this was validated specifically with the fact that the patient was willing to have her pain controlled with only po percocet as per home Rx, if I was able to provide Rx for it Past Medical History: Unchanged from Admission Objective Active Medications: Acetaminophen (Tylenol Tab*) 650 mg PO Q4H PRN PRN Reason: FEVER/PAIN Dextrose (D50w Syringe 50 Ml*) 25 gm IV PUSH ONCE PRN PRN Reason: FS < 60 Last Admin: 01/14/18 06:55 Dose: 25 gm Sodium Chloride (Ns 0.9% 1000 Ml*) 1,000 mls @ 150 mls/hr IV PER RATE [facility] Last Admin: 01/14/18 02:07 Dose: 150 mls/hr Lorazepam (Ativan Tab(*)) 1 mg PO BID [facility] Last Admin: 01/15/18 08:25 Dose: 1 mg Nystatin (Nystatin Suspension*) 200,000 units PO QID [facility] Last Admin: 01/15/18 08:25 Dose: 200,000 units Ondansetron HCl (Zofran Inj*) 4 mg IV Q6H PRN PRN Reason: NAUSEA Oxycodone HCl (Oxycontin(*)) 10 mg PO BID [facility] Last Admin: 01/15/18 08:23 Dose: 10 mg Oxycodone HCl (Roxycodone Tab*) 10 mg PO Q8H PRN PRN Reason: PAIN - MODERATE TO SEVERE Last Admin: 01/15/18 12:29 Dose: 10 mg Pantoprazole Sodium (Protonix Iv*) 40 mg IV Q24H [facility] Last Admin: 01/14/18 16:36 Dose: 40 mg Vital Signs - 8 hr 01/15/18 01/15/18 01/15/18 06:26 06:51 08:00 Temperature Pulse Rate Respiratory 16 16 16 Rate Blood Pressure (mmHg) O2 Sat by Pulse Oximetry 01/15/18 01/15/18 01/15/18 08:23 08:24 08:25 Temperature 98.1 F Pulse Rate 83 Respiratory 16 16 16 Rate Blood Pressure 136/89 (mmHg) O2 Sat by Pulse 98 Oximetry 01/15/18 01/15/18 11:16 12:29 Temperature Pulse Rate Respiratory 20 16 Rate Blood Pressure (mmHg) O2 Sat by Pulse Oximetry Oxygen Devices in Use Now: None Appearance: awake, alert, no distress. Taking po but limited to full liquid Eyes: No Scleral Icterus, PERRLA Ears/Nose/Mouth/Throat: NL Teeth, Lips, Gums, Mucous Membranes Moist Neck: NL Appearance and Movements; NL JVP, Trachea Midline Respiratory: Symmetrical Chest Expansion and Respiratory Effort, Clear to Auscultation Cardiovascular: NL Sounds; No Murmurs; No JVD, RRR, No Edema Abdominal: - - + BS non specific tenderness, no guarding Extremities: No Edema Skin: No Rash or Ulcers - Nutrition: Malnutrition Diagnosis/Plan Malnutrition Assessment by Registered Dietitian: Malnutrition Assessment Clinical Characteristics Acute,Severe Malnutrition Assessment: - < 50% estimated energy expenditure for 5 days Criteria - Moderate temporal muscle wasting, and fat wasting of upper extremities - Underwt status: BMI- 16.0 Malnutrition Assessment: - Pt declined offer for Ensure Enlive/Boost, as Interventions these have caused diarrhea - Pt agreed to try Ensure Clear tonight w/ dinner (240 kcals, 8 grams protein) Malnutrition Assessment: Goals 1. Adequate PO intake to promote wt repletion and hydration w/o undesired wt loss Result Diagrams: 01/15/18 06:21 01/15/18 11:35 Additional Lab and Data: Lab Results 01/13/18 Range/Units 13:35 WBC 6.0 (3.5-10.8) 10^3/ul RBC 3.30 L (4.00-5.40) 10^6/ul Hgb 12.1 (12.0-16.0) g/dl Hct 36 (35-47) % MCV 108 H (80-97) fL MCH 37 H (27-31) pg MCHC 34 (31-36) g/dl RDW 14 (10.5-15) % Plt Count 186 (150-450) 10^3/ul MPV 7.4 (7.4-10.4) fL Neut % (Auto) 70.1 % Lymph % (Auto) 16.6 % Anderson % (Auto) 11.1 % Eos % (Auto) 1.6 % Baso % (Auto) 0.6 % Absolute Neuts (auto) 4.2 (1.5-7.7) 10^3/ul Absolute Lymphs (auto) 1.0 (1.0-4.8) 10^3/ul Absolute Monos (auto) 0.7 (0-0.8) 10^3/ul Absolute Eos (auto) 0.1 (0-0.6) 10^3/ul Absolute Basos (auto) 0 (0-0.2) 10^3/ul Absolute Nucleated RBC 0 10^3/ul Nucleated RBC % 0.2 Microbiology and Other Data: Microbiology 01/13/18 13:25 Urine Culture - Final Urine Assess/Plan/Problems-Billing Assessment: 47 year old female admitted for abdominal pain presumed chronic pancreatitis flare, failed outpatient management with oral opiate. - Patient Problems (1) Pancreatitis, chronic Current Visit: Yes Status: Acute Code(s): K86.1 - OTHER CHRONIC PANCREATITIS SNOMED Code(s): 713116115 Comment: - Failed outpatient treatment with Oral Opiate (percocet 5/325 2 tab Tid PRN Rx provided by Dr. Harry was due on 01/15/18 for neuropathy in relation to rectal cancer treatment)! Was seen in the ER on 01/11/18 and was given Rx for Oxycodone 10 mg # 20 tabs for 4 days on 01/11/18. Apparently she ran out in less than 2 full days. She did call her Oncologist to get refill on her percocet but she was told that it will not be filled on time and it will be filled 4 days past her Rx due date of 01/15/18! Therefore, She returned to ED for acute pain on 01/13/18 for acute pain not controlled by her oral regimen. - Today, she provide very conflicting subjective complains about her pain,. At times she expressed frustration that I am not controlling her pain and all day yesterday she was asking for the IV dilaudid over the po medications stating that the po medication is not controlling her pain, yet, few minutes later she ask if I can place her on the same strength of her percocet and discharge her on it. As soon as I verbalized that due to Controlled substance policies and the fact she is overutilizing her prescription, I did call for pain management consult for guidance. - I am concerned regarding her develloping opiate abuse on top of her opiate dependancy,. (2) History of rectal cancer Current Visit: No Status: Acute Code(s): Z85.048 - PRSNL HX OF MALIG NEOPLM OF RECTUM, RECTOSIG JUNCT, AND ANUS SNOMED Code(s): 898606646 Comment: Followed by Dr Harry. (3) Idiopathic progressive neuropathy Current Visit: No Status: Acute Code(s): G60.3 - IDIOPATHIC PROGRESSIVE NEUROPATHY SNOMED Code(s): 759493871 (4) DVT prophylaxis Current Visit: Yes Status: Acute Code(s): LUH2672 - SNOMED Code(s): 071888113 Comment: - Will start lovenox 30 today (5) Electrolyte abnormality Current Visit: Yes Status: Acute Code(s): E87.8 - OTH DISORDERS OF ELECTROLYTE AND FLUID BALANCE, NEC SNOMED Code(s): 982229735 Comment: - Due to poor po intake. - Supplemented her Potassium and magnesium. - I do suspect that it is probably related to her pain and also a major part is due to opiate dependancy and increase somelence. I did advance her diet to low fat as tolerated
[2018-01-15 13:09] VITALS: BP 128/80
[2018-01-15] MEDS ORDERED: fentaNYL PATCH 25 MCG/HR TRANSDERM SCH (16:00)
[2018-01-15] MEDS ORDERED: Loperamide CAP* 2 MG PO PRN (16:20)
--- NOTE | 2018-01-15 16:33 | CONSULT ---
Consult Consult: INPATIENT PAIN CONSULTATION Radha Valdez is a 47 year old female. According to the patient she was diagnosed with rectal cancer 8 years ago and underwent chemotherapy and radiation followed by surgery. As a result of the chemo, she developed a painful peripheral neuropathy affecting her feet. I saw her in 2011 after she stepped in a hole and injured her left foot. There was concern for CRPS. I gave her Pamelor and sent her to aquatherapy. She didn't tolerate the side effects of Pamelor and was started on Percocet in early 2012. She developed pancreatitis in 2015, and has had recurrent bouts. She was found to have a pancratic pseudocyst. This past spring, she developed increasing weakness in her legs with an ataxic gait. It progressed over the summer. She saw Dr. Schwartz in November and an LP was ordered. Given her rapid decline in functioning , it was thought she had a paraneoplastic syndrome and she was hospitalized in early December to receive IVIG. She failed to improve after the series of IVIG infusions. In late December, she received a bolus of Solu-Medrol. Following this she developed significant abdominal pain. She came to the ER on January 11 and she was discharged with a prescription for additional oxycodone. She came back January 13 and was admitted. Her major complaint is abdominal but she also has pain in her hands and feet and legs. She was taking OxyContin 10 mg BID and Percocet 5/325 up to 6/day as well as Ativan 1 mg BID. I am asked to see her. PAST MEDICAL HISTORY: Anorexia, Osteoporosis, Vertebroplasty, Rectal Cancer, Peripheral Neuropathy ALLERGIES: Cipro Current Medications Acetaminophen (Tylenol Tab*) 650 mg PO Q4H PRN PRN Reason: FEVER/PAIN Dextrose (D50w Syringe 50 Ml*) 25 gm IV PUSH ONCE PRN PRN Reason: FS < 60 Last Admin: 01/14/18 06:55 Dose: 25 gm Fentanyl (Duragesic Patch 25 Mcg/Hr*) 25 mcg TRANSDERM Q72H [facility] Last Admin: 01/15/18 15:20 Dose: 25 mcg Loperamide HCl (Imodium Cap*) 2 mg PO .SEE DIRECTIONS PRN PRN Reason: DIARRHEA Last Admin: 01/15/18 16:38 Dose: 2 mg Lorazepam (Ativan Tab(*)) 1 mg PO BID [facility] Last Admin: 01/15/18 08:25 Dose: 1 mg Nystatin (Nystatin Suspension*) 200,000 units PO QID [facility] Last Admin: 01/15/18 16:39 Dose: Not Given Omeprazole (Prilosec Cap*) 20 mg PO DAILY@0730 [facility] Oxycodone HCl (Roxycodone Tab*) 10 mg PO Q8H PRN PRN Reason: PAIN - MODERATE TO SEVERE Last Admin: 01/15/18 12:29 Dose: 10 mg Pharmacy Profile Note (Fentanyl Patch Check Q Shift) 1 note N/A 0700,1900 [facility] SOCIAL HISTORY: May have been a heavy drinker in the past, drinks little now. Quit smoking in 2010. Denies marijuana. but estranged from Vital Signs Temp Pulse Resp BP Pulse Ox 98.3 F 72 18 128/80 97 01/15/18 11:38 01/15/18 11:38 01/15/18 16:38 01/15/18 11:38 01/15/18 11:38 EXAM: WEIGHT: 93 LBS HEENT: EOMI, PERRL LUNGS: Clear HEART: Reg rhythm ABDOMEN: Soft, some tenderness EXTREMITIES: wasting of legs NEUROLOGIC: decreased sensation in hands and feet GAIT: Wide based gait ASSESSMENT: 1. Peripheral Neuropathy from Chemotherapy 2. Chronic Pancreatitis 3. History of Alcohol Abuse 4. Paraneoplastic Syndrome, with ataxia and weakness PLAN: I think she may do better with a Duragesic patch which does not pass through the gut, and will d/c the OxyContin. If she gets relief and is ready for discharge, she can go home with 3 patches and follow up if she finds this helpful. Her oral intake is not great.
[2018-01-15] MEDS ORDERED: fentaNYL Patch Check Q Shift 1 NOTE SCH (19:00)
[2018-01-16] MEDS ORDERED: Omeprazole CAP* 20 MG PO SCH (07:30)
--- NOTE | 2018-01-17 03:07 | DS ---
CC: Dr. Schwartz; Dr. Moscoso; Dr. Harry; Dr. Colón DISCHARGE SUMMARY: DATE OF ADMISSION: 01/13/18 DATE OF DISCHARGE: 01/15/18 FINAL DISCHARGE DIAGNOSES: 1. Chronic pancreatitis. 2. Abdominal pain secondary to chronic pancreatitis. 3. History of neuropathy. 4. Malnutrition. 5. History of rectal cancer. HOSPITAL COURSE: The patient was admitted to [facility] via the emergency room for abdomi nal pain that got worse after her Solu-Medrol infusion that she was receiving for her neuropathy. [facility] said she was going through IV Solu- Medrol infusion which triggered her abdominal pain and discomfo rt. She became very nauseated having difficulty in the epigastric area radiating to the back with no fever or chills. She does carry a history of pancreatitis. She follows with GI, Dr. Colón, hellen nd she was in the emergency room 2 days prior for the abdominal pain where she had the CT scan of the abdomen, which shows improvement of the pseudocyst, fairly normal amylase and lipase. However, the patient did elect to try to go back home that evening on 01/11/18, to care for her animal and was given a prescription for oxycodone 10 mg a total of 20 tabs and was released, supposed to last h er for 4 four days until her outpatient prescription of Percocet is due from her oncologist. She sta rosetta that the pain got worse. She took all her pain pills within 2 days hence she returned back to [facility] emergency room on 01/13/18. At that time, the patient was admitted as discussed earlier for her intractable abdominal pain that was presumed due to the chronic pancreatitis. The patient w as seen by me on 01/14/18 for the first and initial encounter, she was getting Dilaudid intravenously 1 mg q.4 hours p.r.n. and almost was requiring on a routine basis. I did spend about 30 minutes if not more with the patient taking the history and throughout the interview, she kept falling asleep, d ifficulty on providing history and mumbled speech. However, I was able to gather that she is in lionel re pain, unable to being controlled with her oral regimen at home. GI consult was still pending at [facility] time. On 01/14/18, I did leave the room, I requested to taper down her Dilaudid and I placed her on oral oxycodone 10 mg q.8 hours short acting along with her long acting oxycodone. The following day, 01/15/18, I was called by the nurse as the patient does not recall seeing me the day before and was inquiring if she is going to be released with an oral prescription for oxycodone. I did see the patient again this time with the presence of the nurse for over 30 minutes, reviewed her case, her co ndition, her prescription habit after I checked on I-STOP and it became apparent that she has a presc ription for Percocet which was due on 01/15/18, but unfortunately she was not able to pick it up on Thursday as her prescriber's office Dr. Harry did inform her that based on what the patient told me that due to her prescription that was received on Thursday that her routine prescription has to be differed for additional 4 days to account for the extra pain killers she was given from the emergency room. I did re-confirm and re-assured that the same policy I adhere to since the patient should hav e some Percocet left at home to account for those 4 days. She did come out state that she over utili zed them and she took them because of her acute abdominal pain from the pancreatitis and she has noth ing left. In addition, she did volunteer and she did inform me that she took all of the 20 pills rachell t were given to her in the emergency room within 2 days. With this information, the patient does have 6 days of prescription that is not accounted for. I do not have any suspicion that she is diverting them. I am more concerned that she is abusing them and she is severely dependent on them. The matthew ent did agree with me. Nonetheless, I informed her that I would not be able to give her any prescript ion without being assessed by the Pain Management. I did speak with Dr. Sameer Moscoso, who saw and evaluated the patient and recommended to place her on fentanyl patch 25 mcg and to follow up with he r oncologist for further pain management and he can see her as an outpatient as well if the fentanyl patch helps and he recommended to discontinue the OxyContin. In regards to Percocet, he did express to me that she can resume her home prescription; however, when he was informed that she does not have any, he agreed with my plan to limit the prescription to fentanyl. Therefore, after evaluating the patient and discussing with Dr. Moscoso, she still eager to be discharged and agreed with fentanyl p [facility] and I did sent the prescription to her [facility] of choice, [facility]; however, I had difficulty s ending it electronically via our electronic system as the fentanyl patch was coming up as an noncontr olled substance. I did leave a message with our pharmacist here in-house for software update as fent anyl should be designated as a controlled substance and because of that, I was not able to electronic ally send it. I did provide a hard copy prescription for fentanyl 25 mcg for 2 patches and she had 1 patch applied on her before departure which makes that she does have a total of 3 patches together, o ne was applied, which was done applied today and that is good for 72 hours and 2 more patch for addit ional 6 days for a total of 9 days. Copy of the prescription was made and should be left in the chart . INPATIENT DIAGNOSTIC STUDIES: Lumbar CT spine 01/13/18 shows no acute fracture. She has mild lumbar spondylosis. She had vertebroplasty and there is some displacement of the methylmethacrylate as exte nding into epidural space on the right side pressing on the S1 nerve root; however, this has not graves ged since the prior study of 12/16/17 and the pseudocyst and the pancreatic tail was seen which shows unchanged from the prior study. CT of the thoracic spine shows no fracture of the thoracic spine. CT scan, which was done prior to the presentation but not too long prior, was done in the emergency r oom visit on 01/11/18 shows hepatic steatosis with pancreatic cystic lesion in the tail of the pancre as consistent with resolving pancreatic pseudocyst when compared to 12/16/16. DISCHARGE MEDICATIONS: 1. The patient was given a prescription for fentanyl patch 25 mcg every 72 hours for 6 days 2 patche s in addition to the one that she was applied today prior to her discharge. 2. Loperamide 2 mg as needed. 3. Continue her home medication of the Percocet 5/325 two tabs 3 times a day, not to exceed 6 tabs a s per her outpatient prescription. 4. Lorazepam 1 mg twice a day. 5. Folic acid 1 mg daily. 6. Thiamine 100 mg twice a day. 7. Oxycodone 10 mg twice a day. 8. Famotidine 40 mg daily. 9. Multivitamin daily. 10. Zofran 4 mg as needed. 11. The patient was told to stop the OxyContin as she will be transitioned to fentanyl as per recomm endation from Dr. Moscoso. DISCHARGE INSTRUCTIONS: Follow up with Dr. Moscoso in 4 to 7 days and follow up with Dr. Harry in 4 to 7 days. [id number]/[facility] #: [id number]
== END 2018-01-15 19:01 | disposition home or self-care (01) | DRG 438 ==
LOC: ED 12:58 → MED 16:24 → OBSVTOIN 01-14 12:50
PROVIDERS: ADMIT Internal Medicine; ATTEND Internal Medicine
DX: K86.1 Other chronic pancreatitis (principal); E43 Unspecified severe protein-calorie malnutrition; K86.3 Pseudocyst of pancreas; Z68.1 Body mass index [BMI] 19.9 or less, adult; Z85.048 Personal history of other malignant neoplasm of rectum, rectosigmoid junction, and anus; M47.816 Spondylosis without myelopathy or radiculopathy, lumbar region; K76.0 Fatty (change of) liver, not elsewhere classified; M81.0 Age-related osteoporosis without current pathological fracture; Z88.1 Allergy status to other antibiotic agents; Z91.041 Radiographic dye allergy status; Z72.0 Tobacco use; Z72.89 Other problems related to lifestyle; Z80.0 Family history of malignant neoplasm of digestive organs; G60.3 Idiopathic progressive neuropathy; E87.8 Other disorders of electrolyte and fluid balance, not elsewhere classified; T45.1X5A Adverse effect of antineoplastic and immunosuppressive drugs, initial encounter; Y92.9 Unspecified place or not applicable
CPT/HCPCS: 36415; 72128; 72131; 80048; 80053; 80076; 80320; 81003; 81015; 82150; 83690; 83735; 84100; 84132; 84484; 85025; 85610; 87086; 93005; 99284; A9270-GY; G0480; J1170; J2270; J2765; J3475; J3480

== ENCOUNTER 2018-02-04 15:14 | Emergency (ER) | payer OTHER ==
[2018-02-04 17:01] VITALS: BP 127/89
--- NOTE | 2018-02-04 17:04 | UC ---
Hand/Wrist HPI - HPI Summary HPI Summary: 48 yo female presents with right wrist injury. She tells me that last night she tripped and fell forward onto her right wrist. Since that time has had pain, bruising, and swelling. Denies numbness or tingling. - History Of Current Complaint Chief Complaint: UCUpperExtremity Stated Complaint: WRIST INJURY Time Seen by Provider: 02/04/18 17:03 Hx Obtained From: Patient Hx Last Menstrual Period: post Onset/Duration: Sudden Onset Severity Initially: Moderate Severity Currently: Moderate Pain Intensity: 7 Pain Scale Used: 0-10 Numeric - Allergies/Home Medications Allergies/Adverse Reactions: Allergies Allergy/AdvReac Type Severity Reaction Status Date / Time ciprofloxacin AdvReac Mild Diarrhea Verified 01/11/18 11:20 PMH/Surg Hx/FS Hx/Imm Hx - Additional Past Medical History Additional PMH: Chronic pain Neuropathy GI/ History: Gastroesophageal Reflux - Surgical History Surgical History: Yes Surgery Procedure, Year, and Place: lower anterior bowel resection 05/2008;. VERTEBRAPLASTY - LUMBAR REGION ~2015. PELVIC FX. RECTUM AND 13 INCHES OF SIGMOID COLON REMOVED - Family History Known Family History: Positive: Unknown, Other - Colon CA - Social History Lives: With Family Alcohol Use: Occasionally Alcohol Amount: 2x/week, none recently Substance Use Type: None Smoking Status (MU): Former Smoker Type: Cigarettes When Did the Patient Quit Smoking/Using Tobacco: quit 7 yrs ago - Immunization History Most Recent Influenza Vaccination: 2016 Most Recent Tetanus Shot: uknown Most Recent Pneumonia Vaccination: None Review of Systems All Other Systems Reviewed And Are Negative: Yes Constitutional: Positive: Negative Skin: Positive: Other - Abrasion right arm Respiratory: Positive: Negative Cardiovascular: Positive: Negative Neurovascular: Positive: Negative Musculoskeletal: Positive: Other: - Right wrist pain Neurological: Positive: Negative Psychological: Positive: Negative Physical Exam - Summary Physical Exam Summary: GENERAL: NAD. WDWN. No pain distress. SKIN: Right forearm with 1.5cm linear abrasion. CHEST: No accessory muscle use. Breathing comfortably and in no distress. CV: Pulses intact radial and ulnar. Cap refill <2seconds MSK: RIGHT WRIST: Mild edema and ecchymosis about dorsal aspect. Able to flex and extend, but has pain. Able to make a full fist. No snuffbox tenderness. NEURO: Alert. Sensations intact hand and all fingers. PSYCH: Age appropriate behavior. Triage Information Reviewed: Yes Vital Signs: Initial Vital Signs Temp 98.2 F 02/04/18 16:53 Pulse 76 02/04/18 16:53 Resp 18 02/04/18 16:53 BP 127/89 02/04/18 16:53 Pulse Ox 100 02/04/18 16:53 Vital Signs Reviewed: Yes Hand/Wrist Course/Dx - Course Course Of Treatment: XR: IMPRESSION: 1. OSTEOPENIA, GREATER THAN EXPECTED FOR AGE. 2. PROBABLE NONDISPLACED FRACTURE OF THE DISTAL RADIAL METAPHYSIS. Discussed results with pt and she declined to have an Orthoglass splint placed for multiple reasons; she wishes to "keep an eye" on her forearm abrasion, she says that she needs to be able to drive, and she wants something that she can remove to bathe. I explained to her the potential risks of using a brace instead of orthoglass and she voiced understanding and continued to want the brace. Given this she was placed in a cock up splint. The abrasion was cleansed and dressed with telfa and neosporin. Advised to RICE and f/u with Orthopedics as soon as possible - Differential Dx/Diagnosis Provider Diagnosis: Nondisplaced fracture of distal end of radius Discharge - Sign-Out/Discharge Documenting (check all that apply): Patient Departure All imaging exams completed and their final reports reviewed: Yes - Discharge Plan Condition: Stable Disposition: HOME Patient Education Materials: Wrist Fracture in Adults (ED) Referrals: Atilio Harry MD [Primary Care Provider] - Toni Spring MD [Medical Doctor] - As Soon As Possible Additional Instructions: If you develop a fever, shortness of breath, chest pain, new or worsening symptoms - please call your PCP or go to the ED. Please call Orthopedics at the number below to schedule a follow up appointment as soon as possible regarding your wrist fracture Wear your brace as much as possible - Billing Disposition and Condition Condition: STABLE Disposition: Home
== END 2018-02-04 18:00 | disposition home or self-care (01) ==
LOC: UCEAST 15:14
DX: S52.501A Unspecified fracture of the lower end of right radius, initial encounter for closed fracture (principal); W01.0XXA Fall on same level from slipping, tripping and stumbling without subsequent striking against object, initial encounter; Y93.9 Activity, unspecified; Y92.9 Unspecified place or not applicable; M85.831 Other specified disorders of bone density and structure, right forearm; Z88.1 Allergy status to other antibiotic agents; Z87.891 Personal history of nicotine dependence
CPT/HCPCS: 99212; G0463

== ENCOUNTER 2018-03-09 17:35 | Inpatient (IN) | payer OTHER ==
[2018-03-09] MEDS ORDERED: NS 0.9% 1000 ML** 1,000 ML IV ONE (18:10)
--- NOTE | 2018-03-09 18:10 | ED ---
Complex/Multi-Sys Presentation - HPI Summary HPI Summary: This pt is a 48 y/o female presenting to [facility] via EMS for generalized weakness and a fall 2 days ago. Daughter reports that every since pt was diagnosed with neuropathy pt has become very weak. Daughter notes that since two days ago pt is unable to ambulate. Pt usually ambulated with a walker at baseline. Two days ago pt had a witnessed fall by her and currently c/o right hip, right pelvis, and right thigh pain. Denies fever, black stools, abd pain, chest pain, SOB. Daughter notes the main reason for coming in today is because she thinks "there's something else going on" and pt "is very sick." Per daughter pt has edema in bilateral legs and increased weakness. Pt follows up with Dr. Schwartz. PMHx includes colon CA, neuropathy. She is not on anticoagulants. Per , pt has been falling more frequently. Sustained right hand fracture and rib fracture in the past. - History Of Current Complaint Chief Complaint: EDGeneral Time Seen by Provider: 03/09/18 17:56 Hx Obtained From: Patient, Family/Fuse Coiler - Daughter Onset/Duration: Lasting Days, Still Present Timing: Days Severity Currently: Moderate Aggravating Factor(s): nothing Alleviating Factor(s): nothing Associated Signs And Symptoms: Positive: Edema - in bilateral legs, Recent Trauma, Other - POS: right hip pain, right thigh pain. Negative: Abdominal Pain , Fever - Allergies/Home Medications Allergies/Adverse Reactions: Allergies Allergy/AdvReac Type Severity Reaction Status Date / Time ciprofloxacin AdvReac Mild Diarrhea Verified 02/11/18 15:29 PMH/Surg Hx/FS Hx/Imm Hx Endocrine/Hematology History: Denies: Hx Diabetes, Hx Thyroid Disease Cardiovascular History: Denies: Hx Hypertension, Hx Pacemaker/ICD Respiratory History: Denies: Hx Asthma, Hx Chronic Obstructive Pulmonary Disease (COPD) GI History: Reports: Other GI Disorders - Rectal CA 2008, pancreatitis Denies: Hx Ulcer History: Denies: Hx Renal Disease Musculoskeletal History: Reports: Hx Orthopedic Injury - Pelvic fracture, Hx Osteoporosis, Other Musculoskeletal History - OSTEOPOROSIS Sensory History: Denies: Hx Contacts or Glasses, Hx Deafness, Hx Hearing Aid Opthamlomology History: Denies: Hx Contacts or Glasses Neurological History: Reports: Other Neuro Impairments/Disorders - neuropathy Psychiatric History: Denies: Hx Panic Disorder - Cancer History Cancer Type, Location and Year: COLONORECTAL CA Hx Chemotherapy: Yes - COLORECTAL CANCER, 2008 Hx Radiation Therapy: Yes - Surgical History Surgery Procedure, Year, and Place: lower anterior bowel resection 05/2008;. VERTEBRAPLASTY - LUMBAR REGION ~2016. PELVIC FX. RECTUM AND 13 INCHES OF SIGMOID COLON REMOVED Infectious Disease History: No Infectious Disease History: Denies: Hx Clostridium Difficile, Hx Hepatitis, Hx Human Immunodeficiency Virus (HIV), Hx of Known/Suspected MRSA, Hx Shingles, Hx Tuberculosis, Hx Known/ Suspected VRE, Traveled Outside the [place] in Last 30 Days - Family History Known Family History: Positive: Other - Colon CA - Social History Alcohol Use: Occasionally Alcohol Amount: 2x/week, none recently Substance Use Type: Reports: None Smoking Status (MU): Former Smoker Type: Cigarettes Review of Systems Negative: Fever Negative: Chest Pain Negative: Shortness Of Breath Negative: Abdominal Pain, Other - NEG: black stools Musculoskeletal: Other - POS: right hip pain, right thigh pain Positive: Edema Positive: Weakness - generalized All Other Systems Reviewed And Are Negative: Yes Physical Exam - Summary Physical Exam Summary: Appearance: lethargic Skin: warm, dry, reflects adequate perfusion. Rash on bilateral hands. Head/face: normal Eyes: EOMI, TABITHA. Conjunctiva pallor. ENT: normal Neck: supple, nontender Respiratory: CTA, breath sounds present Cardiovascular: RRR, pulses symmetrical Abdomen: nontender, soft Rectal Exam: Cady, ED RN, present as female asset protection manager. Brown stool. Musculoskeletal: Tenderness in the right hip. Tenderness in right thigh.rom restricted rt leg, Bilateral pedal edema. splint rt forearm, Neuro: A&Ox3 GCS: 15 Triage Information Reviewed: Yes Vital Signs On Initial Exam: Initial Vitals Temp Pulse Resp BP Pulse Ox 98.6 F 89 18 118/74 98 03/09/18 17:47 03/09/18 17:47 03/09/18 17:47 03/09/18 17:47 03/09/18 17:47 Vital Signs Reviewed: Yes Diagnostics - Vital Signs Vital Signs Temp Pulse Resp BP Pulse Ox 03/09/18 17:47 98.6 F 89 18 118/74 98 - Laboratory Result Diagrams: 03/09/18 18:39 03/09/18 18:39 Lab Statement: Any lab studies that have been ordered have been reviewed, and results considered in the medical decision making process. - Radiology Chest XR Radiology Interpretation Completed By: ED Physician Summary of Radiographic Findings: normal chest XR. Pending official radiology report. Hip/Pelvis XR Radiology Interpretation Completed By: ED Physician Summary of Radiographic Findings: Right hip fracture. Pending official radiology report. Right femur XR Radiology Interpretation Completed By: ED Physician Summary of Radiographic Findings: Right intertrochanteric fracture. Pending official radiology report. - CT Brain CT CT Interpretation Completed By: Radiologist Summary of CT Findings: IMPRESSION: 1. No acute intracranial abnormality. 2. No change from the comparison study. Dr. Hart has reviewed this report. - Ultrasound No standard instances Ultrasound Interpretation Completed By: Radiologist Summary of Ultrasound Findings: Venous Doppler Study, Bilateral, IMPRESSION: No acute findings. No evidence of deep vein thrombosis. Dr. Hart has reviewed this report. - EKG 20:11 Cardiac Rate: NL - at 97 bpm EKG Rhythm: Sinus Rhythm Summary of EKG Findings: Nonspecific ST-T changes. Re-Evaluation - Re-Evaluation First Eval Re-Evaluation Time: 20:14 Comment: I reviewed lab and x-rays results with the and daughter. Discussed the admission plan, they understand and agree. Complex Multi-Symp Course/Dx Assessment/Plan: Pt is a 48 y/o female, with hx of neuropathy, who presents to the ED for increasing generalized weakness and a fall 2 days ago. Daughter notes that since two days ago pt is unable to ambulate, usually ambulated with a walker at baseline. Two days ago pt had a witnessed fall by her and currently c/o right hip, right pelvis, and right thigh pain. Blood work, EKG, US, XRs, CTs obtained. US of bilateral LE reveals no acute findings and no evidence of deep vein thrombosis. Chest XR is negative. Right femur and right hip X-rays reveals right intertrochanteric fracture. Brain CT shows 1. No acute intracranial abnormality. 2. No change from the comparison study. Rectal exam performed and sent stool occult blood test to lab. In the ED course the pt was given IV fluids, magnesium sulfate, morphone, zofran. Discussed pt care with Dr. Nance, hospitalist, who accepted pt for admission. Also discussed with Dr. Brice, orthopedist, who will consult on the pt. - Diagnoses Differential Diagnoses/HQI/PQRI: CVA, Metabolic Abnormality, Urinary Tract Infection, Other - rt hip fx/dvt/dehydration/anemia Provider Diagnoses: Fracture of right hip, Anemia, Hypomagnesemia, Peripheral neuropathy, History of colon cancer - Physician Notifications Discussed Care Of Patient With: Jaz Nance Time Discussed With Above Provider: 20:18 Instructed by Provider To: Other - Discussed with Dr. Nance, hospitalist, who accepted pt for admission. [20:24] Discussed with Dr. Brice, orthopedist, who will consult on the pt. - Critical Care Time Critical Care Time: 30-74 min - 30 minutes Discharge - Sign-Out/Discharge Documenting (check all that apply): Patient Departure - Admit to [facility] - Discharge Plan Condition: Stable Disposition: ADMITTED TO [facility] Referrals: Atilio Harry MD [Primary Care Provider] - - Billing Disposition and Condition Condition: STABLE Disposition: Admitted to [facility] - Attestation Statements Document Initiated by Matthew: Yes Documenting Scribe: Carlee Hazel Provider For Whom Matthew is Documenting (Include Credential): Ethan Hart MD Scribe Attestation: Carlee Tavares, scribed for Ethan Hart MD on 03/09/18 at 2041. Scribe Documentation Reviewed: Yes Provider Attestation: The documentation as recorded by the Carlee farrell accurately reflects the service I personally performed and the decisions made by me, Ethan Hart MD Status of Scribe Document: Viewed
--- OUTSIDE RECORDS SUMMARY | 2018-03-09 18:20 | XMS REPORT | Continuity of Care Document ---
:1970 External Reference #:[id number] Author Name Annita Colón MD Address [address] [place] [address] [place] [address] Care Team Providers Name Role Phone Annita Colón MD Care Team Information Intermission Coordinator Unavailable Payers Type Date Identification Numbers Payment Provider Subscriber Policy Number: [id number] Alex Mcrae Group Number: [id number] [id number] PayID: [id number] [place] [address] Advance Directives Description No Information Available Problems Date Description Provider Status Onset: 03/14/2016 Adenocarcinoma of rectum Kyler Post MD Active Onset: 05/06/2017 Liver function tests abnormal Ally Gudino PA-C Active Onset: 05/06/2017 Cyst and pseudocyst of pancreas Ally Gudino PA-C Active Family History Description No Information Available Social History Type Date Description Comments Sex Unknown ETOH Use Currently consumes alcohol Tobacco Use Start: Unknown End: Unknown Patient is a former smoker Smoking Status Reviewed: 02/26/18 Patient is a former smoker Allergies, Adverse Reactions, Alerts Description No Known Drug Allergies Medications Medication Date Status Form Strength Qnty SIG Indications Ordering Provider Famotidine 03/14 Active Tablets 40mg 60tab 1 by mouth Ally Santa s twice a day Saad Gudino PA-C Lorazepam Active Tablets 1mg Garbo,Rita /0000 MD juan carlos Percocet Active Tablets 5-325mg 1 tablet by Unknown /0000 mouth every 6 hours as needed pain Oxycodone HCL Active Tab ER 12H 10mg Unknown ER /0000 Abuse-Det Gabapentin Active Capsules 300mg take 1 Unknown /0000 capsule by mouth twice a day for 1 week Then Take 1 Capsule Three Times A Day Fentanyl Active Patches 72HR 25mcg/HR apply 1 Unknown /0000 patch and replace every 72 hours Nystatin Active Suspension [id number] swish and Unknown /0000 t/ML Spit 6 milliliter every 6 hours for 10 days Ondansetron Active Tablets 4mg take 1 Unknown HCL /0000 tablet by mouth every 6 hours as Needed For Nausea Oxycodone HCL Active Tablets 10mg take 1 Unknown /0000 tablet by mouth every 4 hours as directed as Needed For Severe Pain maximum daily dose of 6 Creon 04/[address] Chapman [id number] 180ca take two by K86.3 Ally ps mouth before L. - 3 [facility] 11/08 meals of the , PA-C day Suprep Bowel 01/15 Hx Solution 17.5-3.13 1unit as directed [place] Prep Kit /2016 -1.6GM/18 s [place], - 0ML [employer] 04/06 Hydrocodone 12/24 Hx Tablets 5-300mg 30tab 1 by mouth [place] Bitartrate/Lm s every 8 hour [place], taminophen - as needed [employer] 04/06 pain Hydrocodone 12/24 Hx Tablets 5-300mg 30tab 1 by mouth R93.3 [place] Bitartrate/Lm s every 8 hour [place], taminophen - as needed [employer] 04/06 pain Hydrocodone 12/15 Hx Tablets 5-300mg 30tab 1 by mouth K85.90 [place] Bitartrate/Lm s every 8 hour [place], taminophen - as needed [employer] 12/16 pain Colyte With 11/17 Hx Solution Rec 240gm 4000m by mouth as Ally Flavor Packs l [facility]C Anusol-HC 01/26 Hx Suppository 25mg 20uni 1 Jeanine ts suppository [place], - by way of [employer] 11/18 rectum twice /2015 a day Oxycodone/Acet Hx Tablets 5-325mg Garbo,Rita aminophen / MD juan carlos - 11/18 Nortriptyline 00/ Hx Capsules 10mg [place], HCL /0000 Vin Estrella MD 11/18 Hydrocodone/Ac 00/00 Hx Tablets 5-325mg [place], etaminophen /0000 Del - DPM 11/18 Diazepam 00/00 Hx Tablets 5mg Unknown /0000 - 11/18 Immunizations Description No Information Available Vital Signs Date Vital Result Comment 02/26/2018 3:50pm Height 64 inches 5'4" Weight 93.00 lb BP Systolic 106 mmHg BP Diastolic 81 mmHg Heart Rate 120 /min BMI (Body Mass Index) 16.0 kg/m2 02/05/2018 4:09pm Height 64 inches 5'4" Weight 90.50 lb BMI (Body Mass Index) 15.5 kg/m2 11/09/2017 3:53pm Height 64 inches 5'4" Weight 98.00 lb BP Systolic 96 mmHg BP Diastolic 70 mmHg Heart Rate 82 /min BMI (Body Mass Index) 16.8 kg/m2 05/06/2017 1:39pm Height 64 inches 5'4" Weight 97.00 lb BMI (Body Mass Index) 16.6 kg/m2 04/06/2017 2:37pm Height 64 inches 5'4" Weight 98.00 lb BP Systolic 118 mmHg BP Diastolic 72 mmHg Heart Rate 76 /min BMI (Body Mass Index) 16.8 kg/m2 01/08/2017 1:07pm Height 64 inches 5'4" Weight 97.00 lb BMI (Body Mass Index) 16.6 kg/m2 12/24/2016 2:00pm Height 63 inches 5'3" 12/11/2016 10:59am Height 63 inches 5'3" Weight 98.50 lb BP Systolic 118 mmHg BP Diastolic 88 mmHg Heart Rate 72 /min BMI (Body Mass Index) 17.4 kg/m2 11/14/2016 2:13pm Height 63 inches 5'3" Weight 105.00 lb BMI (Body Mass Index) 18.6 kg/m2 08/07/2016 3:27pm Height 64 inches 5'4" Weight 102.00 lb BMI (Body Mass Index) 17.5 kg/m2 03/14/2016 11:13am Height 64 inches 5'4" Weight 108.00 lb BP Systolic 112 mmHg BP Diastolic 80 mmHg Heart Rate 90 /min BMI (Body Mass Index) 18.5 kg/m2 12/24/2015 1:04pm Height 64 inches 5'4" Weight 111.00 lb BP Systolic 102 mmHg BP Diastolic 74 mmHg BMI (Body Mass Index) 19.1 kg/m2 11/19/2015 11:37am Height 64 inches 5'4" Weight 104.00 lb BP Systolic 107 mmHg BP Diastolic 79 mmHg Heart Rate 91 /min BMI (Body Mass Index) 17.8 kg/m2 12/06/2013 1:27pm Height 64 inches 5'4" Weight 105.00 lb BP Systolic 100 mmHg BP Diastolic 70 mmHg Heart Rate 78 /min BMI (Body Mass Index) 18.0 kg/m2 01/26/2012 1:11pm Height 64 inches 5'4" Weight 112.50 lb BP Systolic 102 mmHg BP Diastolic 78 mmHg Heart Rate 78 /min BMI (Body Mass Index) 19.3 kg/m2 Results Test Date Facility Test Result H/L Range Note Laboratory test finding 02/26/2018 [facility] Inr <pending> Vitamin D Total 25(Oh) <pending> Miscellaneous Test <pending> Inr/Protime 02/26/2018 [facility] Inr 1.28 High 0.77-1.02 1 CBC Auto Diff 02/26/2018 [facility] White Blood Count 7.3 10^3/uL N 3.5-10.8 Red Blood Count 3.09 10^6/uL Low 4.00-5.40 Hemoglobin 11.6 g/dL Low 12.0-16.0 Hematocrit 33 % Low 35-47 Mean Corpuscular Volume 107 fL High 80-97 2 Mean Corpuscular Hemoglobin 38 pg High 27-31 Mean Corpuscular HGB Conc 35 g/dL N 31-36 Red Cell Distribution Width 17 % High 10.5-15 Platelet Count 263 10^3/uL N 150-450 Mean Platelet Volume 7.6 fL N 7.4-10.4 Abs Neutrophils 5.9 10^3/uL N 1.5-7.7 Abs Lymphocytes 1.0 10^3/uL N 1.0-4.8 Abs Monocytes 0.3 10^3/uL N 0-0.8 Abs Eosinophils 0 10^3/uL N 0-0.6 Abs Basophils 0 10^3/uL N 0-0.2 Abs Nucleated RBC 0 10^3/uL Granulocyte % 81.4 % Lymphocyte % 13.6 % Monocyte % 4.7 % Eosinophil % 0.1 % Basophil % 0.2 % Nucleated Red Blood Cells % 0.5 Comp Metabolic Panel 02/26/2018 [facility] Sodium 136 mmol/L N 135-145 Potassium 3.8 mmol/L N 3.5-5.0 Chloride 96 mmol/L Low 101-111 Co2 Carbon Dioxide 32 mmol/L N 22-32 Anion Gap 8 mmol/L N 2-11 Glucose 102 mg/dL High 70-100 Blood Urea Nitrogen 6 mg/dL N 6-24 Creatinine 0.44 mg/dL Low 0.51-0.95 BUN/Creatinine Ratio 13.6 N 8-20 Calcium 7.9 mg/dL Low 8.6-10.3 Total Protein 5.5 g/dL Low 6.4-8.9 Albumin 2.2 g/dL Low 3.2-5.2 Globulin 3.3 g/dL N 2-4 Albumin/Globulin Ratio 0.7 Low 1-3 Total Bilirubin 1.00 mg/dL N 0.2-1.0 Alkaline Phosphatase 284 U/L High 34-104 Alt 39 U/L N 7-52 Ast 61 U/L High 13-39 Egfr Non- 152.0 >60 Egfr 183.9 >60 3 Laboratory test finding 02/26/2018 [facility] Vitamin D Total 25(Oh) 57.8 ng/mL High 20-50 4 Alpha 1 Antitrypsin 02/16/2018 [facility] A1a Phenotype MM bands 5 Phenotypin Alpha 1 Antitrypsin A1a 189 mg/dL 100 - 190 6 Laboratory test finding 02/16/2018 [facility] Ceruloplasmin 24.5 mg/dL 7 Tissue Transglutamianse Iga AB <1.2 U/mL 8 Immunoglobulin A (Iga) 346 mg/dL 61 - 356 9 Anti Nuclear Antibody 0.7 U 10 Smooth Muscle Antibody Negative Negative 11 Mitochondrial AB AMA M2 Igg 0.1 U Abnormal 12 Hepatitis Acute Panel 02/16/2018 [facility] Hepatitis B Surface Nonreactive Nonreactive Antigen Hepatitis B Core IgM Nonreactive Nonreactive Hepatitis A AB IgM Nonreactive Nonreactive HCV Index 0.0 Index Hepatitis C Antibody Nonreactive Nonreactive Laboratory test finding 02/16/2018 [facility] Ferritin 421.9 ng/mL High 11-307 Iron & Iron Binding Capacity 02/16/2018 [facility] Iron 116 g/dL N 50-212 Unsaturated Iron Binding < 124 g/dL Total Iron Binding Capacity 139 g/dL Low 250-450 Transferrin 99 mg/dL Low 203-362 % Iron Saturation 83 % High 15-55 Comp Metabolic Panel 02/16/2018 [facility] Sodium 132 mmol/L Low 135-145 Chloride 87 mmol/L Low 101-111 Co2 Carbon Dioxide 37 mmol/L High 22-32 Glucose 152 mg/dL High 70-100 Blood Urea Nitrogen 3 mg/dL Low 6-24 Creatinine 0.41 mg/dL Low 0.51-0.95 BUN/Creatinine Ratio 7.3 Low 8-20 Calcium 7.9 mg/dL Low 8.6-10.3 Total Protein 5.3 g/dL Low 6.4-8.9 Albumin 2.3 g/dL Low 3.2-5.2 Globulin 3.0 g/dL N 2-4 Albumin/Globulin Ratio 0.8 Low 1-3 Total Bilirubin 0.80 mg/dL N 0.2-1.0 Alkaline Phosphatase 199 U/L High 34-104 Alt 47 U/L N 7-52 Ast 75 U/L High 13-39 Egfr Non- 164.9 >60 Egfr 199.5 >60 13 Potassium 2.7 mmol/L Low 3.5-5.0 14 Anion Gap 8 mmol/L N 2-11 Inr/Protime 02/16/2018 [facility] Inr 1.23 High 0.77-1.02 CBC Auto Diff 02/16/2018 [facility] White Blood Count 4.1 10^3/uL N 3.5-10.8 Red Blood Count 3.38 10^6/uL Low 4.00-5.40 Hemoglobin 12.3 g/dL N 12.0-16.0 Hematocrit 35 % N 35-47 Mean Corpuscular Volume 104 fL High 80-97 Mean Corpuscular Hemoglobin 36 pg High 27-31 Mean Corpuscular HGB Conc 35 g/dL N 31-36 Red Cell Distribution Width 15 % N 10.5-15 Platelet Count 231 10^3/uL N 150-450 Mean Platelet Volume 8.4 fL N 7.4-10.4 Abs Neutrophils 2.9 10^3/uL N 1.5-7.7 Abs Lymphocytes 0.8 10^3/uL Low 1.0-4.8 Abs Monocytes 0.4 10^3/uL N 0-0.8 Abs Eosinophils 0 10^3/uL N 0-0.6 Abs Basophils 0 10^3/uL N 0-0.2 Abs Nucleated RBC 0 10^3/uL Granulocyte % 71.2 % Lymphocyte % 18.3 % Monocyte % 9.4 % Eosinophil % 0.1 % Basophil % 1.0 % Nucleated Red Blood Cells % 0.1 Anti Smooth 02/05/2018 [facility] Z#Other <pending> [facility]cle [facility] [place] [address] [phone] Laboratory test 02/05/2018 [facility] Ceruloplasmin < pending> finding [address] [place] [address] [phone] A-1 Antitrypsin Phenotype <pending> Celiac 2! 02/05/2018 [facility] Immunoglobulin A (Iga) < pending> [address] [place] [address] [phone] Transglutaminase AB Iga <pending> Hepatitis A,B,C, 02/05/2018 [facility] Hepatitis A AB < pending> Panel [address] [facility] [place] [address] [phone] Hepatitis A Igm AB QN Ser Eia <pending> Hepatitis B Surface AB <pending> Hepatitis B Core AB Tot Ser QL <pending> Laboratory test 02/05/2018 [facility] Mitochondrial < pending> finding [address] [facility] [place] [address] [phone] Kasey 02/05/2018 [facility] Misc Test - Put <pending> Titer/Pattern [address] [facility] [place] [place] [address] [phone] Iron/Uibc/Tibc/ 02/05/2018 [facility] Iron-Total <pending > 25-1 %Sat [address] [facility] g/dL [address] [place] [address] [phone] Iron-Uibc <pending> g/dL 90-340 Iron Binding Capacity Mass/Vol <pending> 245-400 % Iron Saturation <pending> g/dL 10-45 Iron Deficiency 02/05/2018 [facility] Ferritin <pending> 24-250 Iron,Tibc,Ferr [address] [place] [address] Ser/Plas ng/[place] [address] Mass/Vol(!) [phone] Laboratory test 02/05/2018 [facility] Inr(!) <pending> finding [address] [place] [address] [phone] CMP(!) 02/05/2018 [facility] Sodium(!) <pending> 134- [address] [place] [address] mEq/[place] [address] [phone] Potassium(!) <pending> mEq/L 3.6-5.5 Chloride Serum/Plasma(!) <pending> mEq/L 94-112 Carbon Dioxide Ser/Plasm(!) <pending> mEq/L 21-33 BUN - Urea Nitrogen(!) <pending> mg/dL 6-24 Calcium Ser/Plasma Mass/Vol(!) <pending> mg/dL 8.6-10.2 Creatinine Serum Mass/Vol(!) <pending> mg/dL 0.5-1.4 Glucose Serum(!) <pending> mg/dL 70-105 BUN/Creatinine Ratio(!) <pending> RATIO 8.0-36 Albumin Serum/Plasma(!) <pending> g/dL 3.5-5.2 Alkaline Phosphatase(!) <pending> U/L 39-117 Bilirubin Total Mass/Vol <pending> mg/dL 0.2-1.3 Ast - Sgot <pending> U/L 5-34 Alt - SGPT <pending> U/L 10-40 Protein Total <pending> g/dL 6.2-8.1 CBC W/Auto 02/05/2018 [facility] White <pending> 4.8- 10.8 Differential(!) [address] [place] [address] Blood 3/[place] [address] Count Ser [phone] Auto CNT RBC Red Blood Count <pending> X106/UL 4.20-6.20 Hemoglobin Blood <pending> g/dL 12.0-18.0 Hematocrit <pending> % 35-52 MCV (Corpuscular Volume) <pending> FL 79-97 MCH (Corpuscular Hemoglobin) <pending> pg 27-31 MCHC (Corpuscular Hemog Conc) <pending> g/dL 32.0-36.0 RDW <pending> % 10.5-15.0 Platelet Count Blood Auto CNT <pending> X103/UL 150-450 MPV <pending> FL 7.4-10.4 Lymph% <pending> % 20.0-45.0 [place]% <pending> % 1.0-9.0 Neutrophil % <pending> % 38.0-83.0 Absolute Lymphocytes <pending> X103/UL 1.0-4.8 Absolute Monocytes <pending> X103/UL 0.0-0.8 Absolute Neutrophils <pending> X103/UL 1.5-7.7 Liver 05/06/2017 [facility] Albumin 2.9 g/dL Low 3.5- 5.2 Function [address] [facility] Serum/Plasma(!) Panel(!) [place] [address] [phone] Alkaline Phosphatase(!) 210 U/L High 39-117 Bilirubin Direct Mass/Vol(!) 0.1 mg/dL 0.0-0.6 Bilirubin Total Mass/Vol 0.4 mg/dL 0.2-1.3 Ast - Sgot 39 U/L High 5-34 Alt - SGPT 20 U/L 10-40 Total Protein 5.5 g/dL Low 6.2-8.1 Liver 04/06/2017 [facility] Albumin 2.8 g/dL Low 3.5- 5.2 Function [facility] Serum/Plasma(!) Panel(!) [place] [address] [phone] Alkaline Phosphatase(!) 211 U/L High 39-117 Bilirubin Direct Mass/Vol(!) 0.2 mg/dL 0.0-0.6 Bilirubin Total Mass/Vol 0.4 mg/dL 0.2-1.3 Ast - Sgot 35 U/L High 5-34 Alt - SGPT 20 U/L 10-40 Total Protein 5.1 g/dL Low 6.2-8.1 Laboratory 04/06/2017 [facility] Amylase(!) 48 U/L 25- 114 test finding [address] [place] [address] [phone] Laboratory 04/06/2017 [facility] Lipase 41 U/L N 11.0-82.0 15, test finding 16 Laboratory 01/21/2017 [facility] Surgical SEE 17 test finding Interface RESULT Order BELOW CMP(!) 12/15/2016 [facility] Sodium(!) 132 mEq/L Low 134 -[address] [place] [address] [phone] Potassium(!) 4.6 mEq/L 3.6-5.5 Chloride Serum/Plasma(!) 95 mEq/L 94-112 Carbon Dioxide Ser/Plasm(!) 28 mEq/L 21-33 BUN - Urea Nitrogen(!) 4 mg/dL Low 6-24 Calcium Ser/Plasma Mass/Vol(!) 8.8 mg/dL 8.6-10.2 Creatinine Serum Mass/Vol(!) 0.6 mg/dL 0.5-1.4 Glucose Serum(!) 119 mg/dL High 70-105 Uric Acid Ser/Plas Mass/Vol(!) 6.1 mg/dL 2.6-7.2 BUN/Creatinine Ratio(!) 6.7 RATIO Low 8.0-36 Albumin Serum/Plasma(!) 3.2 g/dL Low 3.5-5.2 Alkaline Phosphatase(!) 218 U/L High 39-117 Bilirubin Total Mass/Vol 0.6 mg/dL 0.2-1.3 Ast - Sgot 46 U/L High 5-34 Alt - SGPT 28 U/L 10-40 Protein Total 5.8 g/dL Low 6.2-8.1 Laboratory test 12/15/2016 [facility] Amylase(!) 13 U/L Low 25-114 finding [address] [place] [address] [phone] Lipid Panel(!) 12/15/2016 [facility] Cholesterol [phone] [place] [address] Total Mass/Vol mg/[place] [address] [phone] HDL Cholesterol Mol/Vol 82 30-85 Triglycerides Ser/Plas Mass/VL 114 mg/dL 30-150 LDL Cholesterol Mass/Vol(!) 48 mg/dL 0-130 CBC W/Auto 12/15/2016 [facility] White 10.2 3/UL 4.8- 10.8 Differential(!) [address] [facility] [place] [address] Count Ser [phone] Auto CNT RBC Red Blood Count 3.93 X106/UL Low 4.20-6.20 Hemoglobin Blood 15.0 g/dL 12.0-18.0 Hematocrit 47.0 % 35-52 MCV (Corpuscular Volume) 119.7 FL High 79-97 MCH (Corpuscular Hemoglobin) 38.3 pg High 27-31 MCHC (Corpuscular Hemog Conc) 32.0 g/dL 32.0-36.0 RDW 16.6 % High 10.5-15.0 Platelet Count Blood Auto CNT 313 X103/UL 150-450 MPV 6.8 FL Low 7.4-10.4 Lymph% 24.4 % 20.0-45.0 [place]% 12.2 % High 1.0-9.0 Neutrophil % 63.4 % 38.0-83.0 Absolute Lymphocytes 2.5 X103/UL 1.0-4.8 Absolute Monocytes 1.2 X103/UL High 0.0-0.8 Absolute Neutrophils 6.5 X103/UL 1.5-7.7 Igg Subclasses 12/15/2016 [facility] Total IgG 1080 mg/dL N 767 - 1590 Immunoglobulin G1 794 mg/dL N 341 - 894 Immunoglobulin G2 159 mg/dL Abnormal 171 - 632 Immunoglobulin G3 57.0 mg/dL N 18 Immunoglobulin G4 27.9 mg/dL N 19 Laboratory test finding 12/15/2016 [facility] Lipase 22 U/L N 11.0-82.0 20 CBC Auto Diff 12/10/2016 [facility] White Blood Count 8.4 10^3/uL N 3.5-10.8 Red Blood Count 3.22 10^6/uL Low 4.0-5.4 Hemoglobin 12.4 g/dL N 12.0-16.0 Hematocrit 36 % N 35-47 Mean Corpuscular Volume 113 fL High 80-97 21 Mean Corpuscular Hemoglobin 39 pg High 27-31 Mean Corpuscular HGB Conc 34 g/dL N 31-36 Red Cell Distribution Width 14 % N 10.5-15 Platelet Count 204 10^3/uL N 150-450 Mean Platelet Volume 8 um3 N 7.4-10.4 Abs Neutrophils 4.8 10^3/uL N 1.5-7.7 Abs Lymphocytes 2.9 10^3/uL N 1.0-4.8 Abs Monocytes 0.7 10^3/uL N 0-0.8 Abs Eosinophils 0 10^3/uL N 0-0.6 Abs Basophils 0 10^3/uL N 0-0.2 Abs Nucleated RBC 0.01 10^3/uL N Granulocyte % 56.8 % N 38-83 Lymphocyte % 34.3 % N 25-47 Monocyte % 7.9 % N 1-9 Eosinophil % 0.6 % N 0-6 Basophil % 0.4 % N 0-2 Nucleated Red Blood Cells % 0.1 N Comp Metabolic Panel 12/10/2016 [facility] Sodium 131 mmol/L Low 133-145 Potassium 3.7 mmol/L N 3.5-5.0 Chloride 96 mmol/L Low 101-111 Co2 Carbon Dioxide 29 mmol/L N 22-32 Anion Gap 6 mmol/L N 2-11 Glucose 79 mg/dL N 70-100 Blood Urea Nitrogen 6 mg/dL N 6-24 Creatinine 0.58 mg/dL N 0.51-0.95 BUN/Creatinine Ratio 10.3 N 8-20 Calcium 8.5 mg/dL Low 8.6-10.3 Total Protein 5.3 g/dL Low 6.4-8.9 Albumin 2.6 g/dL Low 3.2-5.2 Globulin 2.7 g/dL N 2-4 Albumin/Globulin Ratio 1.0 N 1-3 Total Bilirubin 0.60 mg/dL N 0.2-1.0 Alkaline Phosphatase 149 U/L High 34-104 Alt 25 U/L N 7-52 Ast 39 U/L N 13-39 Egfr Non- 111.4 N >60 Egfr 143.3 N >60 22 Laboratory test finding 12/10/2016 [facility] Amylase 27 U/L Low 29-103 Lipase 125 U/L High 11.0-82.0 Cell Morphology 12/10/2016 [facility] Macrocytosis 2+ N Xray 11/05/2016 [facility] Radiology MRI Abdomen W/Wo <pendin g> Xray 09/29/2016 [facility] [place] CT Chest/Abd/Pel W <pendin g> Liver Function 08/07/2016 [facility] Albumin 2.8 Low 3.5 -5 Panel(!) [address] [facility] Serum/Plasma(!) g/dL .2 [place], [place] [id number] [phone] Alkaline Phosphatase(!) 185 U/L High 39-117 Bilirubin Direct Mass/Vol(!) 0.2 mg/dL 0.0-0.6 Bilirubin Total Mass/Vol 0.5 mg/dL 0.2-1.3 Ast - Sgot 42 U/L High 5-34 Alt - SGPT 29 U/L 10-40 Total Protein 5.1 g/dL Low 6.2-8.1 Liver Function Panel 06/05/2016 [facility] Total Protein 5.5 g/dL Low 6.4-8.9 Albumin 2.8 g/dL Low 3.2-5.2 Globulin 2.7 g/dL N 2-4 Albumin/Globulin Ratio 1.0 N 1-3 Total Bilirubin 0.50 mg/dL N 0.2-1.0 Direct Bilirubin 0.20 mg/dL High 0.03-0.18 Indirect Bilirubin 0.3 mg/dL N 0.3-1.0 Alkaline Phosphatase 170 U/L High 34-104 Alt 27 U/L N 7-52 Ast 45 U/L High 13-39 CBC Auto Diff 06/05/2016 [facility] White Blood Count 12.2 10^3/uL High 3.5- 10.8 Red Blood Count 4.01 10^6/uL N 4.0-5.4 Hemoglobin 13.6 g/dL N 12.0-16.0 Hematocrit 41 % N 35-47 Mean Corpuscular Volume 102 fL High 80-97 Mean Corpuscular Hemoglobin 34 pg High 27-31 Mean Corpuscular HGB Conc 33 g/dL N 31-36 Red Cell Distribution Width 13 % N 10.5-15 Platelet Count 260 10^3/uL N 150-450 Mean Platelet Volume 8 um3 N 7.4-10.4 Abs Neutrophils 8.5 10^3/uL High 1.5-7.7 Abs Lymphocytes 2.7 10^3/uL N 1.0-4.8 Abs Monocytes 0.8 10^3/uL N 0-0.8 Abs Eosinophils 0.1 10^3/uL N 0-0.6 Abs Basophils 0.1 10^3/uL N 0-0.2 Abs Nucleated RBC 0.01 10^3/uL N Granulocyte % 69.5 % N 38-83 Lymphocyte % 22.3 % Low 25-47 Monocyte % 6.9 % N 1-9 Eosinophil % 0.5 % N 0-6 Basophil % 0.8 % N 0-2 Nucleated Red Blood Cells % 0.1 N Laboratory test 04/02/2016 [facility] Clotest SEE RESULT 23 finding BELOW CBC W/Auto 03/14/2016 [facility] White Blood 11.9 3/UL High 4.8-1 Differential(!) [facility] Count Ser 0.8 [place] [address] Auto CNT [phone] RBC Red Blood Count 4.02 X106/UL Low 4.20-6.20 Hemoglobin Blood 13.7 g/dL 12.0-18.0 Hematocrit 43.2 % 35-52 MCV (Corpuscular Volume) 107.5 FL High 79-97 MCH (Corpuscular Hemoglobin) 34.1 pg High 27-31 MCHC (Corpuscular Hemog Conc) 31.7 g/dL Low 32.0-36.0 RDW 15.1 % High 10.5-15.0 Platelet Count Blood Auto CNT 250 X103/UL 150-450 MPV 7.5 FL 7.4-10.4 Lymph% 18.3 % Low 20.0-45.0 [place]% 5.8 % 1.0-9.0 Neutrophil % 75.9 % 38.0-83.0 Absolute Lymphocytes 2.2 X103/UL 1.0-4.8 Absolute Monocytes 0.7 X103/UL 0.0-0.8 Absolute Neutrophils 9.0 X103/UL High 1.5-7.7 Liver 03/14/2016 [facility] Albumin 3.1 g/dL Low 3.5- 5.2 Function [facility] Serum/Plasma(!) Panel(!) [place] [address] [phone] Alkaline Phosphatase(!) 184 U/L High 39-117 Bilirubin Direct Mass/Vol(!) 0.3 mg/dL 0.0-0.6 Bilirubin Total Mass/Vol 0.8 mg/dL 0.2-1.3 Ast - Sgot 32 U/L 5-34 Alt - SGPT 24 U/L 10-40 Total Protein 5.6 g/dL Low 6.2-8.1 Laboratory 03/14/2016 [facility] GGT-Gammaglytamyl 221 U/ L High 8-40 test finding [address] [facility] Trans (!) [place] [address] [phone] CBC W/Auto 01/18/2016 [facility] Blood Count Ser <pendin Differential(! Auto CNT g> ) RBC Red Blood Count <pending> Hemoglobin Blood <pending> Hematocrit <pending> MCV (Corpuscular Volume) <pending> MCH (Corpuscular Hemoglobin) <pending> MCHC (Corpuscular Hemog Conc) <pending> RDW <pending> Platelet Count Blood Auto CNT <pending> MPV <pending> Lymph% <pending> [place]% <pending> Neutrophil % <pending> Absolute Lymphocytes <pending> Absolute Monocytes <pending> Absolute Neutrophils <pending> Laboratory test finding 12/24/2015 [facility] [place] Mitochondrial AB AMA M2 Igg <0.1 U N 24 Smooth Muscle Antibody Negative N Negative 25 Anti Gliadin Igg And Iga AB 12/24/2015 [facility] [place] [place] Gliadin IgG <10.0 U N 26 Gliadin IgA <10.0 U N 27 Transglutaminase Igg & Iga 12/24/2015 [facility] [place] [place] Tissue Transglutaminase <1.2 U/ mL N 28 IgA Ab Tissue Transglutaminase IgG Ab <1.2 U/mL N 29 Celiac Panel! 12/24/2015 [facility] [place] [place] Endomysial Abs Negative N Negative 30 Liver Function Panel 12/07/2015 [facility] [place] Total Protein 5.6 g/dL Low 6.4-8.9 Albumin 2.8 g/dL Low 3.2-5.2 Globulin 2.8 g/dL N 2-4 Albumin/Globulin Ratio 1.0 N 1-3 Total Bilirubin 0.40 mg/dL N 0.2-1.0 Direct Bilirubin 0.10 mg/dL N 0.03-0.18 Indirect Bilirubin 0.3 mg/dL N 0.3-1.0 Alkaline Phosphatase 192 U/L High 34-104 Alt 21 U/L N 7-52 Ast 33 U/L N 13-39 Laboratory test finding 12/07/2015 [facility] Amylase 29 U/L N 29-103 Lipase 73 U/L N 11.0-82.0 Laboratory test finding 11/20/2015 [facility] Amylase 22 U/L Low 29-103 Lipase 150 U/L High 11.0-82.0 Liver Function Panel(!) 11/20/2015 [facility] Total Protein 5.8 g/dL Low 6.4- 8.9 Albumin 3.0 g/dL Low 3.2-5.2 Globulin 2.8 g/dL N 2-4 Albumin/Globulin Ratio 1.1 N 1-3 Total Bilirubin 0.40 mg/dL N 0.2-1.0 Direct Bilirubin 0.10 mg/dL N 0.03-0.18 Indirect Bilirubin 0.3 mg/dL N 0.3-1.0 Alkaline Phosphatase 215 U/L High 34-104 Alt 15 U/L N 7-52 Ast 33 U/L N 13-39 Liver Panel 11/07/2015 [facility] Alkaline Phosphatase(!) <pending> GGT-Gammaglytamyl Trans (!) <pending> Ast - Sgot <pending> Alt - SGPT <pending> LDH Ser/Plasma <pending> Bilirubin Total Mass/Vol(!) <pending> Bilirubin Direct Mass/Vol(!) <pending> Protein Total <pending> Albumin Serum/Plasma(!) <pending> Cholesterol Total Mass/Vol(!) <pending> CBC W/Auto 11/07/2015 [facility] White Blood <pending> Differential(!) Count Ser Auto CNT RBC Red Blood Count <pending> Hemoglobin Blood <pending> Hematocrit <pending> MCV (Corpuscular Volume) <pending> MCH (Corpuscular Hemoglobin) <pending> MCHC (Corpuscular Hemog Conc) <pending> RDW <pending> Platelet Count Blood Auto CNT <pending> MPV <pending> Lymph% <pending> [place]% <pending> Neutrophil % <pending> Absolute Lymphocytes <pending> Absolute Monocytes <pending> Absolute Neutrophils <pending> CMP(!) 11/07/2015 [facility] Sodium(!) <pending> Potassium(!) <pending> Chloride Serum/Plasma(!) <pending> Carbon Dioxide Ser/Plasm(!) <pending> BUN - Urea Nitrogen(!) <pending> Calcium Ser/Plasma Mass/Vol(!) <pending> Creatinine Serum Mass/Vol(!) <pending> Glucose Serum(!) <pending> Uric Acid Ser/Plas Mass/Vol(!) <pending> BUN/Creatinine Ratio(!) <pending> Albumin Serum/Plasma(!) <pending> Alkaline Phosphatase(!) <pending> Bilirubin Total Mass/Vol(!) <pending> Ast - Sgot <pending> Alt - SGPT <pending> Protein Total <pending> CMP(!) 10/31/2015 [facility] Sodium(!) <pending> Potassium(!) <pending> Chloride Serum/Plasma(!) <pending> Carbon Dioxide Ser/Plasm(!) <pending> BUN - Urea Nitrogen(!) <pending> Calcium Ser/Plasma Mass/Vol(!) <pending> Creatinine Serum Mass/Vol(!) <pending> Glucose Serum(!) <pending> Uric Acid Ser/Plas Mass/Vol(!) <pending> BUN/Creatinine Ratio(!) <pending> Albumin Serum/Plasma(!) <pending> Alkaline Phosphatase(!) <pending> Bilirubin Total Mass/Vol(!) <pending> Ast - Sgot <pending> Alt - SGPT <pending> Protein Total <pending> CBC W/Auto 10/31/2015 [facility] White Blood <pending> Differential(!) Count Ser Auto CNT RBC Red Blood Count <pending> Hemoglobin Blood <pending> Hematocrit <pending> MCV (Corpuscular Volume) <pending> MCH (Corpuscular Hemoglobin) <pending> MCHC (Corpuscular Hemog Conc) <pending> RDW <pending> Platelet Count Blood Auto CNT <pending> MPV <pending> Lymph% <pending> [place]% <pending> Neutrophil % <pending> Absolute Lymphocytes <pending> Absolute Monocytes <pending> Absolute Neutrophils <pending> Laboratory test 10/30/2015 [facility] Lipase Ser/Plas (!) <pending> finding CMP(!) 10/30/2015 [facility] Sodium(!) <pending> Potassium(!) <pending> Chloride Serum/Plasma(!) <pending> Carbon Dioxide Ser/Plasm(!) <pending> BUN - Urea Nitrogen(!) <pending> Calcium Ser/Plasma Mass/Vol(!) <pending> Creatinine Serum Mass/Vol(!) <pending> Glucose Serum(!) <pending> Uric Acid Ser/Plas Mass/Vol(!) <pending> BUN/Creatinine Ratio(!) <pending> Albumin Serum/Plasma(!) <pending> Alkaline Phosphatase(!) <pending> Bilirubin Total Mass/Vol(!) <pending> Ast - Sgot <pending> Alt - SGPT <pending> Protein Total <pending> Xray 10/28/2015 [facility] [place] Abd/Pel W <pending> Xray 10/28/2015 [facility] [place] Abdomen (Complete) 2 <pending> VWS Xray 10/26/2015 [facility] [place] [place] US Abdomen Limited <pending> CBC W/Auto 09/21/2015 [facility] White Blood Count Ser <pending> Differential(!) Auto CNT RBC Red Blood Count <pending> Hemoglobin Blood <pending> Hematocrit <pending> MCV (Corpuscular Volume) <pending> MCH (Corpuscular Hemoglobin) <pending> MCHC (Corpuscular Hemog Conc) <pending> RDW <pending> Platelet Count Blood Auto CNT <pending> MPV <pending> Lymph% <pending> [place]% <pending> Neutrophil % <pending> Absolute Lymphocytes <pending> Absolute Monocytes <pending> Absolute Neutrophils <pending> CMP(!) 09/21/2015 [facility] Sodium(!) <pending> Potassium(!) <pending> Chloride Serum/Plasma(!) <pending> Carbon Dioxide Ser/Plasm(!) <pending> BUN - Urea Nitrogen(!) <pending> Calcium Ser/Plasma Mass/Vol(!) <pending> Creatinine Serum Mass/Vol(!) <pending> Glucose Serum(!) <pending> Uric Acid Ser/Plas Mass/Vol(!) <pending> BUN/Creatinine Ratio(!) <pending> Albumin Serum/Plasma(!) <pending> Alkaline Phosphatase(!) <pending> Bilirubin Total Mass/Vol(!) <pending> Ast - Sgot <pending> Alt - SGPT <pending> Protein Total <pending> Surgical Pathology 03/15/2012 [facility] [place] DATE: 03/17/ <SEE NOTE> 1 [id number] 2 Adult MCV>105,Warmed at 37 for 30 min, change minimal 3 Because ethnic data is not always readily [...] 15-29 5 Kidney failure <15 (or dialysis) 4 [id number] 5 A single M isoform is detected. In the context of a normal [id number] concentration, this is consistent with an MM phenotype. Reviewed by: Nicole Mcdonnell, Ph.D. 6 Test Performed by: [facility] [address] [place] [address] 7 REFERENCE VALUE 20.0 - 51.0 Test Performed by: [address] [address] 8 REFERENCE VALUE <4.0 (Negative) Test Performed by: [address] [address] Test Performed by: [address], [place] [address] 10 REFERENCE VALUE <=1.0 (Negative) Test Performed by: [facility] - [address] [address] 11 ADDITIONAL INFORMATION This test was developed and its performance characteristics determined by [facility] in a manner consistent with CLIA requirements. This test has not been cleared or approved by the U.S. Food and Drug Administration. Test Performed by: [facility] - [address] [address] 12 Interpretation: Borderline (0.1-0.3) REFERENCE VALUE <0.1 (Negative) Test Performed by: [address] [address] 13 Because ethnic data is not always [...] 5 Kidney failure <15 (or dialysis) 14 Critical Result K:2.7 Called to ZOË at: 14:49:31 by:[email or web address] Read back by:ZOË 15 [id number] 17 SEE RESULT BELOW Name: CLEMENTINABRANT : [address]: Kenzie Mays DO Acct: [id number] Unit: [id number] AGE: 47 Location: ENDO Re01/21/17 SEX: F Status: DEP REF SPEC: [id number] NIC: 01/21/17-4737 [facility] [address]: Kenzie Mays DO REQ: [id number] RECD: 01/21/172785 STATUS: CHERYL ARMENDARIZ DR: Atilio Harry MD _ ORDERED: LEVEL 4 FINAL DIAGNOSIS Colon, sigmoid, biopsy: -- Hyperplastic polyp. CLINICAL HISTORY Screening/Surveillance for malignancy in asymptomatic patient here for follow -up 3 year colonoscopy. History of rectal cancer POST-OPERATIVE DIAGNOSIS Normal terminal ileum, patent anastomotic site; 4 mm sessile sigmoid polyp; 5 mm sessile polyp at 20 cm of colon; non-bleeding internal hemorrhoids; good prep. Conclusions/Plan: Follow-up pathology, likely repeat 5 years GROSS DESCRIPTION The specimen is received in formalin labeled, Biopsy Sigmoid Colon Polyp, and consists of a 0.5 x 0.4 x 0.1 cm aggregate of melchor-pink irregular soft tissue fragments which is submitted entirely in one cassette. Signed (signature on file) Claudia Robles MD 1242 END OF REPORT * ML=Testing performed at Main Lab DEPARTMENT OF PATHOLOGY, [address] [place] [address] Timbo Brown M.D. Director [facility] # [id number] 18 REFERENCE VALUE 18.4 - 106.0 19 REFERENCE VALUE 2.4 - 121.0 Test Performed by: [address] [address] 20 [id number] Consistent with previous results on 09/29/16. 22 Because ethnic data is not always readily [...] 15-29 5 Kidney failure <15 (or dialysis) 23 SEE RESULT BELOW Name: BRANT MCRAE Mira : [address]: Kyler Post MD Acct: [id number] Unit: [id number] AGE: 46 Location: ENDO Re04/02/16 SEX: F Status: REG REF SPEC: [id number] NIC: 04/02/16-1350 [facility] [address]: Kyler Post MD REQ: [id number] RECD: 04/02/16 STATUS: MELODY ARMENDARIZ DR: Atilio Harry MD _ SOURCE: GAS ANTRUM SPDESC: ORDERED: Clotest Procedure Result Reported Site Clotest Final 04/03/16- 0754 ML Clotest Negative * ML - [facility]) . END OF REPORT * ML=Testing performed at [facility] DEPARTMENT OF PATHOLOGY, [address] [place] [address] Timbo Brown M.D. Director [facility] # [id number] 24 REFERENCE VALUE <0.1 (Negative) Test Performed by: [place] [address] [employer]: Louie Pryor II, M.D., Ph.D. 25 ADDITIONAL INFORMATION This test was developed and its performance characteristics determined by [facility] in a manner consistent with CLIA requirements. This test has not been cleared or approved by the U.S. Food and Drug Administration. Test Performed by: [facility] [place] [address] [employer]: Louie Pryor II, M.D., Ph.D. 26 REFERENCE VALUE <20.0 (Negative) Test Performed by: [place] [address] [employer]: Louie Pryor II, M.D., Ph.D. 27 REFERENCE VALUE <20.0 (Negative) 28 REFERENCE VALUE <4.0 (Negative) 29 REFERENCE VALUE <6.0 (Negative) Test Performed by: [place] [address] [employer]: Louie Pryor II, M.D., Ph.D. 30 Negative in normal individuals. May be negative in dermatitis herpatiformis or celiac disease patients adhering to a gluten free diet. ADDITIONAL INFORMATION Laboratory developed test. Test Performed by: [place] [address] [employer]: Louie Pryor II, M.D., Ph.D. Procedures Date Code Description Status 04/02/2016 40051 Moderate Sedation Services; Same Phys Intl 15 Mins; PT >=5 Completed Years 04/02/2016 11829 EGD+Biopsy Single Or Multiple Completed 01/04/2014 10615 Colonoscopy Completed 03/15/2012 39124 Colonscopy+Biopsy Completed 12/13/2010 18352 Flexible Sigmoidoscopy; DX; W/Wo Collection Of Spec Completed 12/07/2009 36525 Colonoscopy Completed 02/14/2009 5 Small Balance Write Off Completed 01/15/2009 91885 Colonoscopy Completed 01/31/2008 47837 EGD+Biopsy Single Or Multiple Completed 2008 51456 Colonoscopy W/ Snare RM Of Polyp/Tumor/Lesion Completed 2008 40129 Colonscopy+Biopsy Completed Encounters Type Date Location Provider Dx Diagnosis Office Visit 02/05/2018 [facility] K86.1 Other chronic 3:45p [facility] MD 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 R63.4 Abnormal weight loss R94.5 Abnormal results of liver function studies K21.9 Gastro-esophageal reflux disease without esophagitis Office 11/09/2017 [facility] K86.1 Other chronic Visit 3:45p [facility] Col[facility] 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 R19.7 Diarrhea, unspecified R10.10 Upper abdominal pain, unspecified Z85.038 Personal history of malignant neoplasm of large intestine K21.9 Gastro-esophageal reflux disease without esophagitis K76.0 Fatty (change of) liver, not elsewhere classified Office Visit 05/06/2017 [facility] Ally Nash K86.3 Pseudocyst of 1:30p [facility], PA-C pancreas R94.5 Abnormal results of liver function studies Office Visit 04/06/2017 [facility] Jeanine K86.3 Pseudocyst of 2:30p [facility], pancreas [employer]-C R10.10 Upper abdominal pain, unspecified R63.0 Anorexia Office Visit 12/24/2016 [facility] Jeanine Mina K86.2 Cyst of 2:00p [facility] [employer] pancreas R93.3 Abnormal findings on dx imaging of prt digestive tract Office 12/15/2016 [facility] K85.90 Acute Visit 3:30p [facility], pancreatitis [employer] without necrosis or infection, unsp Office 12/11/2016 [facility] K85.90 Acute Visit 11:30a [facility], pancreatitis [employer] without necrosis or infection, unsp R94.5 Abnormal results of liver function studies Office Visit 08/07/2016 3:30p [facility] Kyler Sepulveda R94.5 Abnormal [facility] Post MD results of liver function studies Z85.038 Personal history of malignant neoplasm of large intestine Office Visit 03/14/2016 [facility] Kyler Sepulveda R10.13 Epigastric pain 11:00a [facility] Post MD R94.5 Abnormal results of liver function studies Office Visit 12/24/2015 [facility] Jeanine Mina R94.5 Abnormal 1:00p [facility] YAHAIRA-C results of liver function studies R10.13 Epigastric pain R11.11 Vomiting without nausea Office 11/19/2015 [facility] K85.90 Acute Visit 11:15a [facility], pancreatitis [employer] without necrosis or infection, unsp Office 12/06/2013 [facility] [place] 569.3 Hemorrhage Rectum Visit 1:15p [facility] Rex, [employer] & Anus V10.06 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 Office Visit 01/26/2012 [facility] V10.05 Personal 1:00p [facility] [place], History [employer] Malignant Neoplasm Large Intestine 569.3 Hemorrhage Rectum & Anus Office Visit 12/02/2010 2:00p [facility] Mina, 787.91 Diarrhea [facility] [employer]C 569.3 Hemorrhage Rectum & Anus Plan of Treatment Future Appointment(s):03/22/2018 10:00 am - [facility] at [facility]
--- OUTSIDE RECORDS SUMMARY | 2018-03-09 18:21 | XMS REPORT | Continuity of Care Document ---
:1970 External Reference #:[id number] Author Name Annita Colón MD Address [address] [place] [address] [place] [address] Care Team Providers Name Role Phone Annita Colón MD Care Team Information [employer] Unavailable Payers Type Date Identification Numbers Payment Provider Subscriber Policy Number: [id number] Alex Mcrae Group Number: [id number] [address] PayID: [id number] [place] [address] Advance Directives Description No Information Available Problems [...] is a former smoker Smoking Status Reviewed: 02/05/18 Patient is a former smoker Allergies, Adverse [...] replace every 72 hours Nystatin Active Suspension [id number] swish and Unknown /0000 t/ML Spit 6 [...] 6 Creon 04/[address] Chapman [id number] 180ca take two by K86.3 Ally ps mouth before L. - 3 [facility] 11/08 meals of the , PA-C day Suprep Bowel 01/15 Hx Solution 17.5-3.13 1unit as directed [place] Prep Kit /2016 -1.6GM/18 s [place], - 0ML SECURITIES RESEARCH ANALYST-C 04/06 Hydrocodone 12/24 Hx Tablets 5-300mg 30tab 1 by mouth [place] Bitartrate/Lm s every 8 hour [place], taminophen - as needed SECURITIES RESEARCH ANALYST-C 04/06 pain Hydrocodone 12/24 Hx Tablets 5-300mg 30tab 1 by mouth R93.3 [place] Bitartrate/Lm s every 8 hour [place], taminophen - as needed SECURITIES RESEARCH ANALYST-C 04/06 pain Hydrocodone 12/15 Hx Tablets 5-300mg 30tab 1 by mouth K85.90 [place] Bitartrate/Lm s every 8 hour [place], taminophen - as needed SECURITIES RESEARCH ANALYST-C 12/16 pain Colyte With 11/17 Hx Solution Rec 240gm 4000m by mouth as Ally Flavor Packs l [facility] , PA-C Anusol-HC 01/26 Hx Suppository 25mg 20uni 1 Jeanine ts suppository [place], - by way of SECURITIES RESEARCH ANALYST-C 11/18 rectum twice /2015 a day Oxycodone/Acet Hx Tablets 5-325mg Garbo,Rita aminophen / MD juan carlos - 11/18 Nortriptyline 00/00 Hx Capsules 10mg [place], HCL /0000 Vin Estrella MD 11/18 Hydrocodone/Ac 00/00 Hx Tablets 5-325mg [place], etaminophen /0000 Vin Mathis DPM 11/18 Diazepam 00/00 Hx Tablets 5mg Unknown /0000 - 11/18 Immunizations Description No Information Available Vital Signs Date Vital Result Comment 02/05/2018 4:09pm Height 64 inches 5'4" Weight [...] Date Facility Test Result H/L Range Note CBC Auto Diff 02/16/2018 [facility] White Blood Count 4.1 10^3/uL N 3.5-10.8 [...] % Nucleated Red Blood Cells % 0.1 Inr/Protime 02/16/2018 [facility] Inr 1.23 High 0.77-1.02 Comp Metabolic Panel 02/16/2018 [facility] Sodium 132 mmol/L Low 135-145 Chloride 87 [...] Egfr Non- 164.9 >60 Egfr 199.5 >60 1 Potassium 2.7 mmol/L Low 3.5-5.0 2 Anion Gap 8 mmol/L N 2-11 Iron & Iron Binding Capacity 02/16/2018 [facility] Iron 116 g/dL N 50-212 Unsaturated Iron Binding < 124 g/dL Total Iron Binding Capacity 139 g/dL Low 250-450 Transferrin 99 mg/dL Low 203-362 % Iron Saturation 83 % High 15-55 Laboratory test 02/16/2018 [facility] Ferritin 421.9 ng/mL High 11-307 finding Hepatitis Acute 02/16/2018 [facility] Hepatitis B Nonreactive Nonreactive Panel Surface Antigen Hepatitis B Core IgM Nonreactive Nonreactive Hepatitis A AB IgM Nonreactive Nonreactive HCV Index 0.0 Index Hepatitis C Antibody Nonreactive Nonreactive Laboratory test finding 02/16/2018 [facility] Ceruloplasmin 24.5 mg/dL 3 Tissue Transglutamianse Iga AB <1.2 U/mL 4 Immunoglobulin A (Iga) 346 mg/dL 61 - 356 5 Anti Nuclear Antibody 0.7 U 6 Smooth Muscle Antibody Negative Negative 7 Mitochondrial AB AMA M2 Igg 0.1 U Abnormal 8 Anti Smooth 02/05/2018 [facility] Z#Other <pending> Muscle [facility] [facility] [place] [address] [phone] Laboratory test 02/05/2018 [facility] Ceruloplasmin < pending> finding [address] [place] [address] [phone] A-1 Antitrypsin Phenotype <pending> Celiac 2! 02/05/2018 [facility] Immunoglobulin A (Iga) < pending> [address] [place] [address] [phone] Transglutaminase AB Iga <pending> Hepatitis A,B,C, 02/05/2018 [facility] Hepatitis A AB < pending> Panel [address] [place] [address] [phone] Hepatitis A Igm AB QN Ser Eia <pending> Hepatitis B Surface AB <pending> Hepatitis B Core AB Tot Ser QL <pending> Laboratory test 02/05/2018 [facility] Mitochondrial < pending> finding [address] [place] [address] [phone] Kasey 02/05/2018 [facility] Misc Test - Put <pending> Titer/Pattern [address] [place] [place] [address] [phone] Iron/Uibc/Tibc/ 02/05/2018 [facility] Iron-Total <pending > 25-1 %Sat [address] g/dL 45 [place] [address] [phone] Iron-Uibc <pending> g/dL 90-340 Iron Binding Capacity Mass/Vol <pending> 245-400 % Iron Saturation <pending> g/dL 10-45 Iron Deficiency 02/05/2018 [facility] Ferritin <pending> 24-250 Iron,Tibc,Ferr [address] Ser/Plas ng/[place] [address] Mass/Vol(!) [phone] Laboratory test 02/05/2018 [facility] Inr(!) <pending> finding [address] [place] [address] [phone] CMP(!) 02/05/2018 [facility] Sodium(!) <pending> 134- 149 [address] mEq/[place] [address] [phone] Potassium(!) <pending> mEq/L 3.6-5.5 Chloride Serum/Plasma(!) <pending> [...] [facility] White <pending> 4.8- 10.8 Differential(!) [address] [facility] Blood 3/[place] [address] Count Ser [phone] Auto CNT RBC Red Blood Count <pending> X106/UL 4.20-6.20 Hemoglobin Blood <pending> g/dL 12.0-18.0 Hematocrit <pending> % 35-52 MCV (Corpuscular Volume) <pending> FL 79-97 MCH (Corpuscular Hemoglobin) <pending> pg 27-31 MCHC (Corpuscular Hemog Conc) <pending> g/dL 32.0-36.0 RDW <pending> % 10.5-15.0 Platelet Count Blood Auto CNT <pending> X103/UL 150-450 MPV <pending> FL 7.4-10.4 Lymph% <pending> % 20.0-45.0 [place]% <pending> % 1.0-9.0 Neutrophil % <pending> % 38.0-83.0 Absolute Lymphocytes <pending> X103/UL 1.0-4.8 Absolute Monocytes <pending> X103/UL 0.0-0.8 Absolute Neutrophils <pending> X103/UL 1.5-7.7 Liver 05/06/2017 [facility] Albumin 2.9 g/dL Low 3.5- 5.[address] [place] [address] Serum/Plasma(!) Panel(!) [place] [address] [phone] Alkaline Phosphatase(!) 210 U/L High 39-117 Bilirubin Direct Mass/Vol(!) 0.1 mg/dL 0.0-0.6 Bilirubin Total Mass/Vol 0.4 mg/dL 0.2-1.3 Ast - Sgot 39 U/L High 5-34 Alt - SGPT 20 U/L 10-40 Total Protein 5.5 g/dL Low 6.2-8.1 Liver 04/06/2017 [facility] Albumin 2.8 g/dL Low 3.5- 5.[address] [place] [address] Serum/Plasma(!) Panel(!) [place] [address] [phone] Alkaline Phosphatase(!) 211 U/L High 39-117 Bilirubin Direct Mass/Vol(!) 0.2 mg/dL 0.0-0.6 Bilirubin Total Mass/Vol 0.4 mg/dL 0.2-1.3 Ast - Sgot 35 U/L High 5-34 Alt - SGPT 20 U/L 10-40 Total Protein 5.1 g/dL Low 6.2-8.1 Laboratory 04/06/2017 [facility] Amylase(!) 48 U/L 25- 114 test finding [address] [place] [address] [phone] Laboratory 04/06/2017 [facility] Lipase 41 U/L N 11.0-82.0 9, 10 test finding Laboratory 01/21/2017 [facility] Surgical SEE RESULT 11 test finding Interface BELOW Order Laboratory 12/15/2016 [facility] Lipase 22 U/L N 11.0-82.0 12 test finding Igg Subclasses 12/15/2016 [facility] Total IgG 1080 mg/dL N 767 - 1590 Immunoglobulin G1 794 mg/dL N 341 - 894 Immunoglobulin G2 159 mg/dL Abnormal 171 - 632 Immunoglobulin G3 57.0 mg/dL N 13 Immunoglobulin G4 27.9 mg/dL N 14 CBC W/Auto 12/15/2016 [facility] White 10.2 3/UL 4.8- 10.8 Differential(!) [address] [facility] [place] [address] Count Ser [phone] Auto CNT RBC Red Blood Count 3.93 X106/UL Low 4.20-6.20 Hemoglobin Blood 15.0 g/dL 12.0-18.0 Hematocrit 47.0 % 35-52 MCV (Corpuscular Volume) 119.7 FL High 79-97 MCH (Corpuscular Hemoglobin) 38.3 pg High 27-31 MCHC (Corpuscular Hemog Conc) 32.0 g/dL 32.0-36.0 RDW 16.6 % High 10.5-15.0 Platelet Count Blood Auto CNT 313 X103/UL 150-450 MPV 6.8 FL Low 7.4-10.4 Lymph% 24.4 % 20.0-45.0 [place]% 12.2 % High 1.0-9.0 Neutrophil % 63.4 % 38.0-83.0 Absolute Lymphocytes 2.5 X103/UL 1.0-4.8 Absolute Monocytes 1.2 X103/UL High 0.0-0.8 Absolute Neutrophils 6.5 X103/UL 1.5-7.7 Lipid Panel(!) 12/15/2016 [facility] Cholesterol 153 mg/ dL [phone] [facility] Total Mass/[place] [address] [phone] HDL Cholesterol Mol/Vol 82 30-85 Triglycerides Ser/Plas Mass/VL 114 mg/dL 30-150 LDL Cholesterol Mass/Vol(!) 48 mg/dL 0-130 Laboratory test 12/15/2016 [facility] Amylase(!) 13 U/L Low 25-114 finding 2435 [place], [place] [address] [phone] CMP(!) 12/15/2016 [facility] Sodium(!) 132 mEq/L Low 134 -[address] [place] [address] [phone] Potassium(!) 4.6 mEq/L 3.6-5.5 Chloride Serum/Plasma(!) 95 [...] 10-40 Protein Total 5.8 g/dL Low 6.2-8.1 Cell Morphology 12/10/2016 [facility] Macrocytosis 2+ N Laboratory test finding 12/10/2016 [facility] Amylase 27 U/L Low 29-103 Lipase 125 U/L High 11.0-82.0 Comp Metabolic Panel 12/10/2016 [facility] Sodium 131 mmol/L Low 133-145 Potassium 3.7 [...] 111.4 N >60 Egfr 143.3 N >60 15 CBC Auto Diff 12/10/2016 [facility] White Blood Count 8.4 10^3/uL N 3.5-10.8 Red Blood Count 3.22 10^6/uL Low 4.0-5.4 Hemoglobin 12.4 g/dL N 12.0-16.0 Hematocrit 36 % N 35-47 Mean Corpuscular Volume 113 fL High 80-97 16 Mean Corpuscular Hemoglobin 39 pg High 27-31 [...] Nucleated Red Blood Cells % 0.1 N Xray 11/05/2016 [facility] Radiology MRI Abdomen <pending> W/Wo Xray 09/29/2016 [facility] Radiology CT <pending> Chest/Abd/Pel W Liver Function 08/07/2016 [facility] Albumin 2.8 g/dL Low 3.5-5. Panel(!) [facility] [facility] Serum/Plasma( 2 [place] [address] !) [phone] Alkaline Phosphatase(!) 185 U/L High 39-117 Bilirubin Direct Mass/Vol(!) 0.2 mg/dL 0.0-0.6 Bilirubin Total Mass/Vol 0.5 mg/dL 0.2-1.3 Ast - Sgot 42 U/L High 5-34 Alt - SGPT 29 U/L 10-40 Total Protein 5.1 g/dL Low 6.2-8.1 CBC Auto Diff 06/05/2016 [facility] White Blood Count 12.2 10^3/uL High 3.5- [...] Nucleated Red Blood Cells % 0.1 N Liver Function Panel 06/05/2016 [facility] Total Protein 5.5 g/dL Low 6.4-8.9 Albumin 2.8 g/dL Low 3.2-5.2 Globulin 2.7 g/dL N 2-4 Albumin/Globulin Ratio 1.0 N 1-3 Total Bilirubin 0.50 mg/dL N 0.2-1.0 Direct Bilirubin 0.20 mg/dL High 0.03-0.18 Indirect Bilirubin 0.3 mg/dL N 0.3-1.0 Alkaline Phosphatase 170 U/L High 34-104 Alt 27 U/L N 7-52 Ast 45 U/L High 13-39 Laboratory test 04/02/2016 [facility] Clotest SEE RESULT 17 finding BELOW CBC W/Auto 03/14/2016 [facility] White Blood 11.9 3/UL High 4.8-1 Differential(!) [address] Count Ser 0.8 [place] [address] Auto CNT [phone] RBC Red Blood Count 4.02 X106/UL Low 4.20-6.20 Hemoglobin Blood 13.7 g/dL 12.0-18.0 Hematocrit 43.2 % 35-52 MCV (Corpuscular Volume) 107.5 FL High 79-97 MCH (Corpuscular Hemoglobin) 34.1 pg High 27-31 MCHC (Corpuscular Hemog Conc) 31.7 g/dL Low 32.0-36.0 RDW 15.1 % High 10.5-15.0 Platelet Count Blood Auto CNT 250 X103/UL 150-450 MPV 7.5 FL 7.4-10.4 Lymph% 18.3 % Low 20.0-45.0 [place]% 5.8 % 1.0-9.0 Neutrophil % 75.9 % 38.0-83.0 Absolute Lymphocytes 2.2 X103/UL 1.0-4.8 Absolute Monocytes 0.7 X103/UL 0.0-0.8 Absolute Neutrophils 9.0 X103/UL High 1.5-7.7 Liver 03/14/2016 [facility] Albumin 3.1 g/dL Low 3.5- 5.2 Function [address] [facility] Serum/Plasma(!) Panel(!) [place] [address] [phone] Alkaline Phosphatase(!) 184 U/L High 39-117 Bilirubin Direct Mass/Vol(!) 0.3 mg/dL 0.0-0.6 Bilirubin Total Mass/Vol 0.8 mg/dL 0.2-1.3 Ast - Sgot 32 U/L 5-34 Alt - SGPT 24 U/L 10-40 Total Protein 5.6 g/dL Low 6.2-8.1 Laboratory 03/14/2016 [facility] GGT-Gammaglytamyl 221 U/ L High 8-40 test finding [address] [facility] Trans (!) [place] [address] [phone] CBC W/Auto 01/18/2016 [facility] Blood Count Ser <pendin Differential(! Auto CNT g> ) RBC Red Blood Count <pending> Hemoglobin Blood <pending> Hematocrit <pending> MCV (Corpuscular Volume) <pending> MCH (Corpuscular Hemoglobin) <pending> MCHC (Corpuscular Hemog Conc) <pending> RDW <pending> Platelet Count Blood Auto CNT <pending> MPV <pending> Lymph% <pending> [place]% <pending> Neutrophil % <pending> Absolute Lymphocytes <pending> Absolute Monocytes <pending> Absolute Neutrophils <pending> Laboratory test finding 12/24/2015 [facility] Mitochondrial AB AMA M2 Igg <0.1 U N 18 Smooth Muscle Antibody Negative N Negative 19 Celiac Panel! 12/24/2015 [facility] Endomysial Abs Negative N Negative 20 Transglutaminase Igg & 12/24/2015 [facility] Tissue Transglutaminase <1.2 U/mL N 21 Iga IgA Ab Tissue Transglutaminase IgG Ab <1.2 U/mL N 22 Anti Gliadin Igg And Iga AB 12/24/2015 [facility] Gliadin IgG <10.0 U N 23 Gliadin IgA <10.0 U N 24 Laboratory test finding 12/07/2015 [facility] Amylase 29 U/L N 29-103 Lipase 73 U/L N 11.0-82.0 Liver Function Panel 12/07/2015 [facility] Total Protein 5.6 g/dL Low 6.4-8.9 Albumin 2.8 g/dL Low 3.2-5.2 Globulin 2.8 g/dL N 2-4 Albumin/Globulin Ratio 1.0 N 1-3 Total Bilirubin 0.40 mg/dL N 0.2-1.0 Direct Bilirubin 0.10 mg/dL N 0.03-0.18 Indirect Bilirubin 0.3 mg/dL N 0.3-1.0 Alkaline Phosphatase 192 U/L High 34-104 Alt 21 U/L N 7-52 Ast 33 U/L N 13-39 Liver Function Panel(!) 11/20/2015 [facility] Total Protein 5.8 g/dL Low 6.4- 8.9 Albumin 3.0 g/dL Low 3.2-5.2 Globulin 2.8 g/dL N 2-4 Albumin/Globulin Ratio 1.1 N 1-3 Total Bilirubin 0.40 mg/dL N 0.2-1.0 Direct Bilirubin 0.10 mg/dL N 0.03-0.18 Indirect Bilirubin 0.3 mg/dL N 0.3-1.0 Alkaline Phosphatase 215 U/L High 34-104 Alt 15 U/L N 7-52 Ast 33 U/L N 13-39 Laboratory test finding 11/20/2015 [facility] Amylase 22 U/L Low 29-103 Lipase 150 U/L High 11.0-82.0 CBC W/Auto 11/07/2015 [facility] Blood <pending> Differential(!) Count Ser Auto CNT RBC Red Blood Count <pending> Hemoglobin Blood <pending> Hematocrit <pending> MCV (Corpuscular Volume) <pending> MCH (Corpuscular Hemoglobin) <pending> MCHC (Corpuscular Hemog Conc) <pending> RDW <pending> Platelet Count Blood Auto CNT <pending> MPV <pending> Lymph% <pending> [place]% <pending> Neutrophil % <pending> Absolute Lymphocytes <pending> Absolute Monocytes <pending> Absolute Neutrophils <pending> Liver Panel 11/07/2015 [facility] Alkaline Phosphatase(!) <pending> GGT-Gammaglytamyl Trans (!) <pending> Ast - Sgot <pending> Alt - SGPT <pending> LDH Ser/Plasma <pending> Bilirubin Total Mass/Vol(!) <pending> Bilirubin Direct Mass/Vol(!) <pending> Protein Total <pending> Albumin Serum/Plasma(!) <pending> Cholesterol Total Mass/Vol(!) <pending> CMP(!) 11/07/2015 [facility] Sodium(!) <pending> [...] Auto CNT <pending> MPV <pending> Lymph% <pending> [place]% <pending> Neutrophil % <pending> Absolute Lymphocytes <pending> Absolute Monocytes <pending> Absolute Neutrophils <pending> CMP(!) 10/31/2015 [facility] Sodium(!) <pending> Potassium(!) <pending> Chloride Serum/Plasma(!) <pending> Carbon Dioxide Ser/Plasm(!) <pending> BUN - Urea Nitrogen(!) <pending> Calcium Ser/Plasma Mass/Vol(!) <pending> Creatinine Serum Mass/Vol(!) <pending> Glucose Serum(!) <pending> Uric Acid Ser/Plas Mass/Vol(!) <pending> BUN/Creatinine Ratio(!) <pending> Albumin Serum/Plasma(!) <pending> Alkaline Phosphatase(!) <pending> Bilirubin Total Mass/Vol(!) <pending> Ast - Sgot <pending> Alt - SGPT <pending> Protein Total <pending> Laboratory test 10/30/2015 [facility] Lipase [...] SGPT <pending> Protein Total <pending> Xray 10/28/2015 [facility] Radiology Abdomen (Complete) 2 <pending> VWS Xray 10/28/2015 [facility] Radiology CT Abd/Pel W <pending> Xray 10/26/2015 [facility] Radiology US Abdomen Limited <pending> CBC W/Auto 09/21/2015 [facility] Blood Count Ser <pending> Differential(!) Auto CNT RBC Red Blood Count <pending> Hemoglobin Blood <pending> Hematocrit <pending> MCV (Corpuscular Volume) <pending> MCH (Corpuscular Hemoglobin) <pending> MCHC (Corpuscular Hemog Conc) <pending> RDW <pending> Platelet Count Blood Auto CNT <pending> MPV <pending> Lymph% <pending> [place]% <pending> Neutrophil % <pending> Absolute Lymphocytes <pending> [...] <pending> Protein Total <pending> Surgical Pathology 03/15/2012 [facility] S RUN DATE: 03/17/ <SEE NOTE> 1 Because ethnic data is not always [...] 5 Kidney failure <15 (or dialysis) 2 Critical Result K:2.7 Called to [id number] at: 14:49:31 by:[id number] Read back by:[id number] REFERENCE VALUE 20.0 - 51.0 Test Performed by: [facility] - [address] [address] 4 REFERENCE VALUE <4.0 (Negative) Test Performed by: [address] [address] 5 Test Performed by: [facility] - [address] [address] 6 REFERENCE VALUE <=1.0 (Negative) Test Performed by: [address] [address] 7 ADDITIONAL INFORMATION This test was developed and its performance characteristics determined by [facility] in a manner consistent with CLIA requirements. This test has not been cleared or approved by the U.S. Food and Drug Administration. Test Performed by: [facility] - [address] [address] 8 Interpretation: Borderline (0.1-0.3) REFERENCE VALUE <0.1 (Negative) Test Performed by: [facility] - [facility] [address] [place] [address] 9 [id number] SEE RESULT BELOW Name: BRANT MCRAE : [address]: Kenzie Mays DO Acct: [id number] Unit: [id number] AGE: 47 Location: ENDO Re01/21/17 SEX: F Status: DEP REF SPEC: [id number] NIC: 01/21/17-9566 [facility] [address]: Kenzie Mays DO REQ: [id number] RECD: 01/21/17-9166 STATUS: CHERYL ARMENDARIZ DR: Atilio Harry MD [...] performed at Main Lab DEPARTMENT OF PATHOLOGY, [address] [place] [address] Timbo Brown M.D. Director CLIA # [id number] REFERENCE VALUE 18.4 - 106.0 14 REFERENCE VALUE 2.4 - 121.0 Test Performed by: [address] [address] 15 Because ethnic data is not always readily [...] 15-29 5 Kidney failure <15 (or dialysis) 16 Consistent with previous results on 09/29/16. 17 SEE RESULT BELOW Name: BRANT MCRAE : [address]: Kyler Post MD Acct: [id number] Unit: [id number] AGE: 46 Location: ENDO Re04/02/16 SEX: F Status: REG REF SPEC: [id number] NIC: 04/02/16-1350 [facility] [address]: Kyler Post MD REQ: [id number] RECD: 04/02/16 STATUS: COMP KALA DR: Atilio Harry MD _ SOURCE: GAS ANTRUM SPDESC: ORDERED: Clotest Procedure Result Reported Site Clotest Final 04/03/16- 0754 ML Clotest Negative * ML - [facility]) . END OF REPORT * ML=Testing performed at Main Lab DEPARTMENT OF PATHOLOGY, [address] [place] [address] Timbo Brown M.D. Director [facility] # [id number] REFERENCE VALUE <0.1 (Negative) Test Performed by: [place] [id number] Rock Crusher: Louie Pryor II, M.D., Ph.D. 19 ADDITIONAL INFORMATION This test was developed and its performance characteristics determined by [facility] in a manner consistent with CLIA requirements. This test has not been cleared or approved by the U.S. Food and Drug Administration. Test Performed by: [facility] [place] [address] Rock Crusher: Louie Pryor II, M.D., Ph.D. 20 Negative in normal individuals. May be negative in dermatitis herpatiformis or celiac disease patients adhering to a gluten free diet. ADDITIONAL INFORMATION Laboratory developed test. Test Performed by: [place] [address] Rock Crusher: Louie Pryor II, M.D., Ph.D. 21 REFERENCE VALUE <4.0 (Negative) 22 REFERENCE VALUE <6.0 (Negative) Test Performed by: [place] [address] Rock Crusher: Louie Pryor II, M.D., Ph.D. 23 REFERENCE VALUE <20.0 (Negative) Test Performed by: [place] [address] [employer]her: Louie Pryor II, M.D., Ph.D. 24 REFERENCE VALUE <20.0 (Negative) Procedures Date Code Description Status 04/02/2016 30974 Moderate Sedation Services; Same Phys Intl 15 Mins; PT >=5 Completed Years 04/02/2016 60898 EGD+Biopsy Single Or Multiple Completed 01/04/201442328 Colonoscopy Completed 03/15/2012 03978 Colonscopy+Biopsy Completed 12/13/2010 93989 Flexible Sigmoidoscopy; DX; W/Wo Collection Of Spec Completed 12/07/200987551 Colonoscopy Completed 02/14/2009 5 Small Balance Write Off Completed 01/15/200918540 Colonoscopy Completed 01/31/2008 47165 EGD+Biopsy Single Or Multiple Completed 2008 04081 Colonoscopy W/ Snare RM Of Polyp/Tumor/Lesion Completed 2008 90775 Colonscopy+Biopsy Completed Encounters Type Date Location Provider Dx Diagnosis Office Visit 11/09/2017 [facility] Annita K86.1 Other chronic 3: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 [facility] pancreatitis K86.3 Pseudocyst of pancreas R19.7 Diarrhea, unspecified R10.10 Upper abdominal pain, unspecified Z85.038 Personal history of malignant neoplasm of large intestine K21.9 Gastro-esophageal reflux disease without esophagitis K76.0 Fatty (change of) liver, not elsewhere classified Office Visit 05/06/2017 [facility]enterology Ally Nash K86.3 Pseudocyst of 1:30p [facility] Nelson-Sammi pancreas R94.5 Abnormal results of liver function studies Office Visit 04/06/2017 [facility]enter[facility] Jeanine K86.3 Pseudocyst of 2:30p [facility], pancreas SECURITIES RESEARCH ANALYST-C R10.10 Upper abdominal pain, unspecified R63.0 Anorexia Office Visit 12/24/2016 [facility] Jeanine Mina K86.2 Cyst of 2:00p [facility] pancreas R93.3 Abnormal findings on dx imaging of prt digestive tract Office 12/15/2016 [facility] Jeanine K85.90 Acute Visit 3:30p [facility], pancreatitis SECURITIES RESEARCH ANALYST-C without necrosis or infection, unsp Office 12/11/2016 Gastroenterbal[facility]inder Solorzano K85.90 Acute Visit 11:30a [facility], pancreatitis SECURITIES RESEARCH ANALYST-C without necrosis or infection, unsp R94.5 Abnormal [...] Jeanine Mina R94.5 Abnormal 1:00p [facility] results of liver function studies R10.13 Epigastric pain R11.11 Vomiting without nausea Office 11/19/2015 [facility] [place] K85.90 Acute Visit 11:15a [facility] [place], pancreatitis SECURITIES RESEARCH ANALYST-C without necrosis or infection, unsp Office 12/06/2013 [facility] [place] 569.3 Hemorrhage Rectum Visit 1:15p [facility] [place], SECURITIES RESEARCH ANALYST-C & Anus V10.06 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 Office Visit 01/26/2012 [facility] [place] V10.05 Personal 1:00p [facility], History SECURITIES RESEARCH ANALYST-C Malignant Neoplasm Large Intestine 569.3 Hemorrhage Rectum & Anus Office Visit 12/02/2010 2:00p [facility] Jeanine Leopoldo, 787.91 Diarrhea [facility] SECURITIES RESEARCH ANALYST-C 569.3 Hemorrhage Rectum & Anus Plan of Treatment Future Appointment(s):02/26/2018 3:30 pm - Annita Colón MD at [facility]02/05/2018 - Annita Colón MDK86.1 Other chronic tfmzaapkiysuB30.3 Pseudocyst of jmlwrhjqZ33.4 Abnormal weight lossR94.5 Abnormal results of liver function adsrlozX13.9 Gastro-esophageal reflux disease without esophagitis
[2018-03-09 18:54] LABS: ABS Basophils 0 10^3/ul (0-0.2); ABS Eosinophils 0 10^3/ul (0-0.6); ABS Lymphocytes 1.4 10^3/ul (1.0-4.8); ABS Monocytes 0.2 10^3/ul (0-0.8); ABS Neutrophils 4.3 10^3/ul (1.5-7.7); ABS Nucleated RBC 0.1 10^3/ul; Eosinophil % 0.1 %; Hematocrit 24 % (35-47); Hemoglobin 7.9 g/dl (12.0-16.0); Mean Corpuscular HGB Conc 33 g/dl (31-36); Mean Corpuscular Hemoglobin 38 pg (27-31); Mean Corpuscular Volume 115 fL (80-97); Mean Platelet Volume 7.5 fL (7.4-10.4); Nucleated Red Blood Cells % 1.5; Platelet Count 111 10^3/ul (150-450); Red Blood Count 2.07 10^6/ul (4.00-5.40); Red Cell Distribution Width 21 % (10.5-15)
[2018-03-09 19:01] LABS: INR 1.85 (0.77-1.02)
[2018-03-09 19:08] LABS: ALT 69 U/L (7-52); AST 112 U/L (13-39); Albumin 1.8 g/dL (3.2-5.2); Albumin/Globulin Ratio 0.6 (1-3); Alkaline Phosphatase 246 U/L (34-104); Anion Gap 4 mmol/L (2-11); BUN/Creatinine Ratio 53.1 (8-20); Blood Urea Nitrogen 17 mg/dL (6-24); C Reactive Protein 92.27 mg/L (<8.01); CO2 Carbon Dioxide 36 mmol/L (22-32); Calcium 7.4 mg/dL (8.6-10.3); Chloride 93 mmol/L (101-111); EGFR African American 265.6 (>60); EGFR Non-African American 219.5 (>60); Globulin 2.8 g/dL (2-4); Glucose 87 mg/dL (70-100); Magnesium 1.5 mg/dL (1.9-2.7); Potassium 3.5 mmol/L (3.5-5.0); Sodium 133 mmol/L (135-145); Total Protein 4.6 g/dL (6.4-8.9)
[2018-03-09 19:10] LABS: Troponin I 0.01 ng/mL (<0.04)
[2018-03-09] MEDS ORDERED: Magnesium Sulfate 2 GM IV* 2 GM/50 ML BAG IVPB ONE (19:24)
[2018-03-09] MEDS ORDERED: Morphine VIAL* 10 MG/ML 1 ML VIAL IV ONE (20:26)
[2018-03-09] MEDS ORDERED: Ondansetron INJ* 2 MG/ML VIAL IV ONE (20:27)
[2018-03-09] MEDS ORDERED: Acetaminophen TAB* 325 MG PO PRN (21:35)
[2018-03-09] MEDS ORDERED: Senna TAB PO PRN (21:35)
[2018-03-09] MEDS ORDERED: Docusate CAP* 100 MG PO PRN (21:35)
[2018-03-09] MEDS ORDERED: Loperamide CAP* 2 MG PO PRN (21:43)
[2018-03-09] MEDS ORDERED: Thiamine IV* 100 MG/ML 2 ML VIAL IM ONE (21:44)
[2018-03-09 22:00] LABS: Alcohol < 10 mg/dL (<10)
[2018-03-09] MEDS ORDERED: LORazepam INJ* 2 MG/ML 1 ML VIAL IV PUSH SCH (22:00)
[2018-03-09 22:33] LABS: Prealbumin 6 mg/dL (18-38)
[2018-03-09 22:48] LABS: TSH (Thyroid Stimulating Horm) 1.87 mcIU/mL (0.34-5.60)
--- NOTE | 2018-03-10 00:20 | HP ---
CC: Atilio Harry MD * HISTORY AND PHYSICAL: DATE OF ADMISSION: 03/09/18 PRIMARY CARE PHYSICIAN: Atilio Harry MD TIME OF EVALUATION: 2100. CHIEF COMPLAINT: Fall and weakness. HISTORY OF PRESENT ILLNESS: This is a 48-year-old female with a past medical history of colon cancer, status post chemoradiation and surgery who has suffered significant peripheral neuropathy that has rapidly progressed over the past several months. The patient has been followed by Dr. Schwartz for her neuropathy. She was admitted back in January for this that included a full workup including imaging, LP. The workup was unremarkable and has been getting IVIG with Dr. Schwartz; however, this does not seem to have improved her symptoms. She also is seeing Dr. Colón as well. She had a CAT scan of her abdomen last month that was unrevealing. The patient is falling asleep frequently during my encounter. Her who no longer lives with her and her daughter at the bedside are providing lot of the history. They state she was still drinking heavily over the summer, 4 to 5 drinks per day, and has declined dramatically due to her own clinical decline, but she is still drinking. They state over the past month she has rapidly progressed in her decline with inability to ambulate and worsening sensory loss. On the evening of 03/07/18, the patient fell. She did not hit her head. No loss of consciousness, was complaining of right hip pain. They spoke with Oncology yesterday. They recommended she go to the emergency room and they ended up coming the following day for workup and she was found to have a right hip fracture and anemia. She had a rectal exam done by the ER doctor that showed brown stool. The patient states she has had some intermittent confusion with head heaviness. No nausea or vomiting. She states she sometimes has black stools and sometimes she has bright red blood per rectum. She does not stool very frequently. She has had a significant amount of weight loss and decrease in appetite. She has had some chest pain, some shortness of breath, and some abdominal cramping. She has lost significant sensation in her lower extremities and her hands, arms and face which has been going on for several months. She has also noted difficulty with swallowing, coughing after eating or drinking. Remaining review of systems is negative. The and the daughter who do not live with her are there with her all the time and helping her ambulate, but has gotten significantly worse. They worry about her own safety and her care at home. In the emergency room, the patient had labs, imaging. She was given 2 g of magnesium, 2 mg of morphine and referred to the hospitalist service for further evaluation. PAST MEDICAL HISTORY: 1. Nondisplaced fracture of the right distal radial metaphysis last month. 2. History of rectal cancer diagnosed in 2007, status post chemoradiation and surgery, is being followed by Dr. Harry. Her cancer has not been active for several years despite elevated tumor markers. 3. Severe peripheral neuropathy with rapid progression s/p IVIG, followed by Dr. Schwartz. 4. History of chronic pancreatitis. 5. History of malnutrition. 6. History of chronic pain. 7. History of B12 deficiency. 8. History of alcohol abuse. 9. History of osteoporosis. 10. History of small bowel obstruction. MEDICATIONS: 1. Folic acid 1 mg daily. 2. Famotidine 40 mg p.o. daily. 3. Calcium citrate/vitamin D3 one tab daily. 4. Percocet 1 tab t.i.d. as needed. 5. Thiamine 100 mg p.o. b.i.d. 6. Multivitamin daily. 7. Imodium 2 mg as needed. 8. Ativan b.i.d. 9. OxyContin 10 mg p.o. b.i.d. ALLERGIES: CIPROFLOXACIN. FAMILY HISTORY: Reviewed and noncontributory. SOCIAL HISTORY: As mentioned, complicated. She is still , but the no longer lives with her, but he is there frequently caring for her. The , Aime, and the daughter is also very involved in her care. She is no longer ambulating as of few days ago. Her healthcare proxy, she does state is her , Aime Valdez, daughter, Rachel Valdez and her father. She is still drinking but a dramatic decline in amount over the past few months. No recent smoking history or smoking. Code status discussed and remains a full code. REVIEW OF SYSTEMS: A 14-point review of systems as mentioned in the HPI, otherwise negative. PHYSICAL EXAMINATION GENERAL: Frail, pale, cachectic-appearing female, in no acute distress. and daughter are at the bedside. VITAL SIGNS: Temp 97.6, pulse rate 93, respiratory rate 18, oxygen saturation 95 % on room air, blood pressure 104/72. HEENT: Head: Normocephalic. Pupils are equal and reactive. She does have a subconjunctival hemorrhage on the left. Conjunctivae are pale. Oropharynx: Mucous membranes are dry. She has angular cheilitis. NECK: Supple. No lymphadenopathy. RESPIRATORY: Clear to auscultation. No wheezes, rhonchi, or rales. CARDIAC: Tachycardia. Soft systolic murmur heard throughout. ABDOMEN: Hypoactive bowel sounds. Soft, nontender, nondistended. No rebound or guarding. EXTREMITIES: The patient with +2 pretibial edema bilaterally with some lower extremity erythema. NEUROLOGIC: She has sensory deficits on her upper and lower extremities and her face and her torso. She has generalized diffuse weakness. No focal deficits. No tongue fasciculations. She is alert and oriented x3, but she is falling asleep and very delayed response when answering questions. DERM: She has dry cracked skin on her hands bilaterally with some open cracks. DIAGNOSTIC STUDIES/LAB DATA: White count 6, hemoglobin 7.9, hematocrit 24, platelets 111. INR is 1.85. Sodium 133, potassium 3.5, chloride 93, bicarb 36 , BUN 17, creatinine 0.32, magnesium 1.5. Total bili is 1.2, AST is 112, ALT is 69, alk phos 246. CRP is 92. BNP is 316. Albumin is 1.8. Lipase is 17. RADIOGRAPHIC DATA: Shows a right hip fracture. Head CT shows no acute intracranial abnormality. Venous Doppler study shows no acute findings. No evidence of a DVT. EKG shows normal sinus. ASSESSMENT: This is a 48-year-old female with a past medical history of colon cancer, alcohol abuse, and recently a severe progression of peripheral neuropathy with unknown etiology, who presents to the emergency room after having a fall and generalized decline. 1. Fall. Assessment: The patient with a right hip fracture. Dr. Brice was contacted. The patient with several active clinical conditions going on, recommend addressing her anemia and her neuropathy prior to proceeding to the OR. Plan: We will allow her to continue to eat and continue pain control, bowel regimen, follow up with Ortho. 2. Weakness, generalized decline with progression of neuropathy. Assessment: The patient had a workup a month ago that was unrevealing regarding her neuropathy. She was getting IVIG that did not seem to help. She seems to have continued to deteriorate. Dr. Schwartz has been following her as did see with Dr. Enriquez who will follow up with her in the morning. It is unclear of the etiology behind the progression. She still is drinking. It may be playing a role in her progressive neuropathy as well as her history of receiving chemotherapy. Plan: We will consult Neurology and follow up with them in the morning. There is concern for her swallowing as well. Order a Speech Therapy evaluation and a swallow study. 3. Confusion and somnolence. Assessment: The patient seems more lethargic and somnolent. It could be related to her alcohol use. Her LFTs have dramatically increased over the past month. She is still drinking and it may be that her metabolis of her home medications is accumulating causing more increased somnolence. She is also very cachectic and malnourished appearing with severe protein-calorie malnutrition. Confusion could also be a Wernicke's encephalopathy. Plan, we will check ammonia level, B12 level. We will place her on a WAM protocol and check a prealbumin. We will place a nutrition consult. Order an ultrasound of her liver to further evaluate new elevated LFTs and consider GI evaluation as well. Will give IV B12 and continue home PO dose. 4. Acute anemia. The patient with a drop in her H and H since the beginning of this month. Her stool was brown on exam in the ER, awaiting the Hemoccult study. I wonder if there is bleeding into her hip. Plan: We will order 2 units, follow up her Hemoccult, place her on IV PPI. If her Hemoccult is positive, we will have GI evaluate her as well. 5. Chronic medical problems. We will resume her home medications. We will hold her Pepcid and place her on IV PPI. 6. Fluids, electrolytes, nutrition: Regular diet. As mentioned, Speech Therapy eval for swallowing function and nutrition for her cachexia. 7. DVT prophylaxis: The patient scores high risk in the setting of her anemia. We will place her on SCDs. Code Status: The patient states she would like to be a full code. I think with her comorbidities and her rapid decline her goals of care need to be readdressed with Dr. Harry who seems to have a good rapport with patient and family. PATIENT TIME: Greater than 60 minutes spent doing the history and physical, more than half the time spent in direct patient contact. [id number]/[facility] #: [id number] YOLY
[2018-03-10] MEDS: oxyCODONE/Acetamin 5/325 MG* TAB PO PRN (00:23)
[2018-03-10] MEDS: Clotrimazole 1% CREAM* 45 GM TOPICAL SCH ×3 (00:25→20:52)
[2018-03-10] MEDS: Pantoprazole IV* 40 MG IV SCH ×2 (01:16→10:38)
[2018-03-10] MEDS: Lidocaine PATCH 5%* 1 PATCH TRANSDERM SCH ×2 (01:39→11:06)
[2018-03-10] MEDS: Morphine INJ* 2 MG/ML 1 ML SYRINGE (TWO MG - NEW SYRINGE VERSION) IV PRN ×3 (06:04→17:47)
[2018-03-10 06:27] LABS: Hematocrit 28 % (35-47); Hemoglobin 9.7 g/dl (12.0-16.0); Mean Corpuscular HGB Conc 34 g/dl (31-36); Mean Corpuscular Hemoglobin 35 pg (27-31); Mean Corpuscular Volume 102 fL (80-97); Mean Platelet Volume 7.2 fL (7.4-10.4); Platelet Count 80 10^3/ul (150-450); Red Blood Count 2.75 10^6/ul (4.00-5.40); Red Cell Distribution Width 22 % (10.5-15); White Blood Count 4.8 10^3/ul (3.5-10.8)
[2018-03-10 06:39] LABS: ALT 53 U/L (7-52); AST 85 U/L (13-39); Albumin 1.5 g/dL (3.2-5.2); Albumin/Globulin Ratio 0.6 (1-3); Alkaline Phosphatase 210 U/L (34-104); Anion Gap 5 mmol/L (2-11); Blood Urea Nitrogen 17 mg/dL (6-24); CO2 Carbon Dioxide 32 mmol/L (22-32); Calcium 7.1 mg/dL (8.6-10.3); Chloride 98 mmol/L (101-111); EGFR African American 286.1 (>60); EGFR Non-African American 236.5 (>60); Globulin 2.4 g/dL (2-4); Glucose 72 mg/dL (70-100); Potassium 3.7 mmol/L (3.5-5.0); Sodium 135 mmol/L (135-145); Total Protein 3.9 g/dL (6.4-8.9)
[2018-03-10 06:53] LABS: ABS Basophils 0 10^3/ul (0-0.2); ABS Eosinophils 0 10^3/ul (0-0.6); ABS Lymphocytes 1.7 10^3/ul (1.0-4.8); ABS Monocytes 0.2 10^3/ul (0-0.8); ABS Neutrophils 2.8 10^3/ul (1.5-7.7); ABS Nucleated RBC 0.1 10^3/ul; Eosinophil % 0.1 %; Lymphocyte % 35.4 %; Nucleated Red Blood Cells % 1.4
--- NOTE | 2018-03-10 07:37 | CONSULT ---
Consult Consult: Orthopedic Surgery Consultation Date: 03/10/2018 Requesting Service: ER Chief Complaint: Right hip pain. History: 48F who sustained a mechanical fall onto her right side yesterday, . She sustained a right hip fracture. She recently sustained a right nondisplaced distal radius fracture, being treated with a removable wrist brace. She has had a complicated medical history recently. She has developed peripheral neuropathy from chemotherapy for colon cancer. This has made ambulation difficult, and led to these falls. The pain is located at the right hip and is constant moderate, sharp. Pain worse with hip ROM and lessened when rested. Review of Systems: Negative for fever, recent visual changes, chest pain, shortness of breath, and diffuse rash. Positive for weakness, weight loss, peripheral neuropathy, recent falls. PMH: Rectal cancer, status post chemotherapy, radiation and surgery. Peripheral neuropathy from chemotherapy. Chronic pancreatitis. Malnutrition. Chronic pain. Vitamin B12 deficiency. History of alcohol abuse. Osteoporosis. History of small bowel obstruction. PSH: Bowel resection, vertebroplasty Medications: Folic acid, famotidine, calcium and vitamin D, Percocet, thiamine, multivitamin, Imodium, Ativan, OxyContin. Allergies: Ciprofloxacin SH: She currently is not living with her , although he does assist in her care. She reports that she does not use any assistive devices for ambulation, although ambulation has become difficult with the neuropathy. No tobacco use. She does use alcohol and has a history of alcohol abuse. FH: Noncontributory Physical Examination: Constitutional: Temp Pulse Resp BP Pulse Ox 98.3 F 87 16 94/60 94 03/10/18 05:15 03/10/18 05:15 03/10/18 06:04 03/10/18 05:16 03/10/18 05:15 General appearance is unhealthy and emaciated but non-septic and in no acute distress. Cardiovascular: Pulse examination demonstrates positive pedal pulses with brisk capillary refill. There are no varicosities. Abdomen: Soft and nontender Lymphatic: No lymphadenopathy appreciated. Skin: Bilateral upper and lower extremity examination demonstrate multiple scabbed over abrasions from picking at her skin. Psychiatric / Neurological: Appropriate affect. Alert and oriented to person, place and time. There is no significant abnormality in coordination appreciated. Musculoskeletal: Bilateral upper extremities and contralateral lower extremity show full range of motion with no evidence of instability and no tenderness with palpation and 5 /5 strength except for at the right wrist, which does have some tenderness at the distal radius. No deformity. The right lower extremity is shortened and externally rotated Skin intact 5/5 motor strength distally. She has diminished light touch sensation distally. There is no global swelling, edema, or varicosities. Pain with him logroll and heel strike No TTP at knee, lower leg, ankle, foot Palpable DP pulse. Flexes and extends ankle and toes. Imaging: X-rays were obtained, and independently interpreted and show a displaced right hip intertrochanteric fracture. Labs: WBC 4.8 HCT 28 Platelets 80 Cr 0.3 INR 1.85 Impression and Plan: 48-year-old woman with a right hip displaced intertrochanteric hip fracture. We discussed both nonoperative and operative treatment options. My recommendation is surgical intervention when medically cleared with a right hip ORIF with a cephalomedullary nail. We discussed the risks/benefits and pros/ cons of both operative and nonoperative options. After this discussion, we came to the decision that we would move forward with surgery. For now, nonweightbearing in the right lower extremity. NPO for possible OR later today if medically cleared. Appreciate medical clearance. I recommend chemical and mechanical DVT prophylaxis. Also, please recheck a CBC and coagulation labs this afternoon to monitor her platelet count and her INR. Lester Brice MD
--- NOTE | 2018-03-10 08:21 | PN ---
Progress Note - Progress Note Date of Service: 03/09/18 Note: Pt. admitted last night for hip fx. Final reading for CXR per Dr. Rai is concerning for new pulmonary nodules concerning for mets. I relayed results to pt.'s attending, Dr. Thomas, today at 0817.
--- NOTE | 2018-03-10 08:50 | PN ---
Subjective Date of Service: 03/10/18 Interval History: HD #2 for this 48 yo F with PMH rectal Ca s/p chemo radiation and surgery in 2007, followed by Dr. Harry with elevated tumor markers, EtOH use d/o, peripheral neuropathy, failure to thrive with current BMI 13 who presented s/p mechanical fall found to have R hip fracture and anemia to 7 s/p 2 U PRBC. Overnight, no acut events, VS concerning BP 87-92/55-61, 98.3, 94% on RA RR and HR stable. Imaging reviewed from ER, ?pancreatic head hypodensity that is new since last CTAP and new pulm nodules on CXR. Discuss case w Dr. Harry. Will need ang[place] scan to determine if new metastatic dz. Was originally slated for OR this afternoon, but given presence of possible new pulm mets will order echo to better assess her cardiac risk, will offer detailed medical clearance this afternoon. Can potentially go for ORIF tomorrow AM and will communicate with surgeons. This morning, seen at bedside and discussed findings, tearful, though wants to proceed with workup. Has c/o pain but tolerable, she would like to advance diet , which I am open to if timing of her scans allow. Otherwise denies CP or SOB, has contant abdominal pain no complaints, + depression Objective Active Medications: Acetaminophen (Tylenol Tab*) 650 mg PO Q4H PRN PRN Reason: FEVER/PAIN Clotrimazole (Clotrimazole 1%*) 1 applic TOPICAL BID [facility] Last Admin: 03/10/18 00:25 Dose: 1 applic Docusate Sodium (Colace Cap*) 100 mg PO BID PRN PRN Reason: CONSTIPATION Folic Acid (Folvite Tab*) 1 mg PO DAILY [facility] Lidocaine (Lidoderm 5% Patch*) 1 patch TRANSDERM DAILY [facility] Last Admin: 03/10/18 01:39 Dose: 1 patch Loperamide HCl (Imodium Cap*) 2 mg PO .SEE DIRECTIONS PRN PRN Reason: DIARRHEA Lorazepam (Ativan Tab(*)) 1 mg PO BID [facility] Lorazepam (Ativan Inj*) 0 - 3 mg IV PUSH .PER [facility] PROTOCOL RIKKI; Protocol Morphine Sulfate (Morphine Inj ((Syringe))*) 2 mg IV Q4H PRN PRN Reason: PAIN - MILD Last Admin: 03/10/18 06:04 Dose: 2 mg Multivitamins/Minerals (Theragran/Minerals Tab*) 1 tab PO DAILY [facility] Ondansetron HCl (Zofran Inj*) 4 mg IV Q4H PRN PRN Reason: NAUSEA/VOMITING Oxycodone HCl (Oxycontin(*)) 10 mg PO BID [facility] Oxycodone/Acetaminophen (Percocet 5/325 Tab*) 1 tab PO TID PRN PRN Reason: PAIN Last Admin: 03/10/18 00:23 Dose: 1 tab Pantoprazole Sodium (Protonix Iv*) 40 mg IV DAILY [facility] Last Admin: 03/10/18 01:16 Dose: 40 mg Pharmacy Profile Note (Lidocaine Patch Remove*) 1 note N/A 2100 [facility] Senna (Senokot Tab*) 1 tab PO BID PRN PRN Reason: CONSTIPATION Thiamine HCl (Vitamin B-1 Tab*) 100 mg PO BID [facility] Vital Signs - 8 hr 03/10/18 03/10/18 03/10/18 00:54 01:00 01:15 Temperature 98.1 F 98.3 F Pulse Rate 97 93 Respiratory 17 16 16 Rate Blood Pressure 90/65 85/51 (mmHg) O2 Sat by Pulse 97 98 Oximetry 03/10/18 03/10/18 03/10/18 01:50 02:29 03:40 Temperature 97.8 F 98.3 F Pulse Rate 90 88 Respiratory 17 16 16 Rate Blood Pressure 85/56 91/62 (mmHg) O2 Sat by Pulse 94 94 Oximetry 03/10/18 03/10/18 03/10/18 03:43 05:00 05:15 Temperature 98.0 F 98.3 F Pulse Rate 88 87 Respiratory 16 16 16 Rate Blood Pressure 92/61 87/55 (mmHg) O2 Sat by Pulse 97 94 Oximetry 03/10/18 03/10/18 05:16 06:04 Temperature Pulse Rate Respiratory 16 Rate Blood Pressure 94/60 (mmHg) O2 Sat by Pulse Oximetry Oxygen Devices in Use Now: None Appearance: Frail cachetic woman in bed Ears/Nose/Mouth/Throat: NL Teeth, Lips, Gums, - - Dry mucous membrane Respiratory: Symmetrical Chest Expansion and Respiratory Effort, Clear to Auscultation Cardiovascular: NL Sounds; No Murmurs; No JVD, RRR Abdominal: NL Sounds; No Tenderness; No Distention, - - Scaphoid abdomen Extremities: No Edema Skin: No Rash or Ulcers Neurological: Alert and Oriented x 3 Result Diagrams: 03/10/18 11:42 03/10/18 06:04 Microbiology and Other Data: Microbiology 03/09/18 20:59 Stool Occult Blood ([facility]) - Final Stool Assess/Plan/Problems-Billing Assessment: 48 yo F with PMH rectal Ca s/p chemo radiation and surery in 2007, followed by Dr. Harry with elevated tumor markers, EtOH use d/o, peripheral neuropathy, failure to thrive with current BMI 13 who presented s/p mechcnial fall found to have R hip fracture and anemia to 7 s/p 2 U PRBC. Hospital course c/b possibly new metastatic dz - Patient Problems (1) Fracture of right hip Current Visit: Yes Status: Acute Code(s): S72.001A - FRACTURE OF UNSP PART OF NECK OF RIGHT FEMUR, INIT SNOMED Code(s): 356077383 Comment: Plan for R ORIF 03/11, will leave formal medical clearance note in chart after Echo (2) Anemia Current Visit: Yes Status: Acute Code(s): D64.9 - ANEMIA, UNSPECIFIED SNOMED Code(s): 336455920 Comment: Multifactorial ACD, SARA. -Add on iron studies -SP 2 U PRBC w appropriate response (3) History of rectal cancer Current Visit: No Status: Acute Code(s): Z85.048 - PRSNL HX OF MALIG NEOPLM OF RECTUM, RECTOSIG JUNCT, AND ANUS SNOMED Code(s): 245177942 Comment: -FTT and functional decline x last 4 months, c/b etoh use d/o, will CTAP to evalaute for new possible dz -Followed by Dr Harry, discussed case with him this AM, appreciate recs (4) Idiopathic progressive neuropathy Current Visit: No Status: Acute Code(s): G60.3 - IDIOPATHIC PROGRESSIVE NEUROPATHY SNOMED Code(s): 221764986 Comment: Likely ETOH and multifactorial, on IVIG with Dr. Schwartz, neuro was consulted -Not sure if [place] is appropriate but I see no clear contraindication, will discuss with her oncologist (5) Alcoholism Current Visit: No Status: Acute Code(s): F10.20 - ALCOHOL DEPENDENCE, UNCOMPLICATED SNOMED Code(s): 0836232 Comment: -WAM protocol with Ativan (6) Failure to thrive Current Visit: Yes Status: Acute Code(s): SHF2911 - SNOMED Code(s): 12329479 Comment: Multifactorial, onc and etoh use d/o -Consider GOC discussion pending findings of metastatic w/u (7) DVT prophylaxis Current Visit: No Status: Acute Code(s): MII1278 - SNOMED Code(s): 140234586 Comment: -Defer to ortho
[2018-03-10] MEDS ORDERED: Famotidine TAB* 20 MG PO SCH (09:00)
[2018-03-10] MEDS ORDERED: Thiamine TAB* 100 MG TAB PO SCH (09:00)
[2018-03-10] MEDS ORDERED: Folic Acid TAB* 1 MG PO SCH (09:00)
[2018-03-10] MEDS ORDERED: Multivitamins/Minerals TAB PO SCH (09:00)
[2018-03-10] MEDS ORDERED: Iodixanol* (CONTRAST) 320 MG/ML 100 ML SDV IV ONE (09:04)
[2018-03-10] MEDS: LORazepam TAB(*) 1 MG PO SCH ×2 (11:05→20:47)
[2018-03-10] MEDS: Folic Acid TAB* 1 MG PO SCH (11:05)
[2018-03-10] MEDS: Multivitamins/Minerals TAB PO SCH (11:06)
[2018-03-10] MEDS: Thiamine TAB* 100 MG TAB PO SCH ×2 (11:06→20:48)
[2018-03-10] MEDS: oxyCODONE SR TAB(*) 10 MG TAB.SR PO SCH ×2 (11:20→20:47)
--- NOTE | 2018-03-10 11:45 | ECHO ---
Patient: BRANT MCRAE [facility] Rec#: [id number] : 1970 Date: 03/10/2018 Age: 48y Height: 165 cm / 65.0 in Weight: 37 kg / 81.5 lbs Sex: F BSA: 1.35 Room#: 331 Admit Date#: 03/09/2018 Type: Inpatient Referring: Lissette Thomas MD Reading: Hien Negrete MD Shipper: Karina Vinson,MAHICS,RDMS CC: Atilio Harry MD Transthoracic Echocardiogram Indication: Murmur BP: 87/60 HR: 96 Rhythm: NSR Findings History: Fall with hip fracture. Colon cancer, chemotherapy, radiation, ETOH, failure to thrive Technical Comments: The study quality is fair. Left Ventricle: The left ventricular chamber size, wall thickness and systolic function are within normal limits. There are no wall motion abnormalities The left ventricular chamber size is normal. There is no left ventricular hypertrophy. The estimated ejection fraction is 50-55%. Normal left ventricular diastolic filling is observed. Left Atrium: The left atrial chamber size is normal. Right Ventricle: The right ventricular chamber size and systolic function are within normal limits. Right Atrium: The right atrial cavity size is normal. Aortic Valve: There is no evidence of aortic valve thickening. Systolic excursion of the aortic valve is normal. There is no evidence of aortic regurgitation. There is no evidence of aortic stenosis. Mitral Valve: The mitral valve leaflets are mildly thickened. There is mild mitral regurgitation. The mitral regurgitant jet is laterally directed. There is no evidence of mitral stenosis. Tricuspid Valve: The tricuspid valve leaflets are normal. There is moderate tricuspid regurgitation. No pulmonary hypertension is noted. Pulmonic Valve: The pulmonic valve structure is not well visualized. There is no evidence of pulmonic regurgitation. Pericardium: There is no significant pericardial effusion. Aorta: The aortic root appears normal. The ascending aorta is not well visualized. There is no dilatation of the aortic arch. The aortic root is normal in size. Pulmonary Artery: The main pulmonary artery is not well visualized. Venous: The inferior vena cava appears normal in size. There is less than 50% respiratory change in the inferior vena cava dimension. Conclusions The left ventricular chamber size, wall thickness and systolic function are within normal limits. There are no wall motion abnormalities The estimated ejection fraction is 50-55%. The right ventricular chamber size and systolic function are within normal limits. There is mild mitral regurgitation. There is moderate tricuspid regurgitation. No pulmonary hypertension is noted. No prior echo to compare. Measurements Name Value Normal Range RVIDd (AP) 2D 1.5 cm (0.9 - 2.6) RVDdMajor (2D) 2.6 cm (2.2 - 4.4) RAd ISD 4CH 4.5 cm (3.4 - 4.9) RA (A4C)W 3.3 cm (2.9 - 4.6) IVSd (2D) 0.7 cm (0.6 - 1) LVPWd (2D) 0.7 cm (0.6 - 1) LVIDd (2D) 4.8 cm (3.6 - 5.4) LVIDs (2D) 3.2 cm - LV FS (2D) 34 % (25 - 45) Aortic Annulus 2 cm (1.4 - 2.6) Ao root diameter (2D) 2.5 cm (2.1 - 3.5) Aortic arch 2.6 cm (1.8 - 3.4) LA dimension (AP) 2D 2.8 cm (2.3 - 3.8) LAd ISD 4CH 3.8 cm (2.9 - 5.3) LA ISD 4CH W 3.1 cm (2.5 - 4.5) Name Value Normal Range LA ESV BP (A/L) index 13 ml/m2 - Name Value Normal Range MV E-wave Vmax 0.8 m/sec - MV deceleration time 116 msec - MV A-wave Vmax 0.7 m/sec - MV E:A ratio 1.1 ratio - P. vein S-wave Vmax 0.6 m/sec - P. vein D-wave Vmax 0.5 m/sec - P. vein S:D Vmax ratio 1.1 ratio - P. vein A-wave duration 100 msec - LV septal e' Vmax 0.09 m/sec - LV lateral e' Vmax 0.13 m/sec - LV E:e' septal ratio 9 ratio - LV E:e' lateral ratio 6 ratio - Name Value Normal Range AV Vmax 1.4 m/sec - AV VTI 25 cm - AV peak gradient 8 mmHg - AV mean gradient 5 mmHg - LVOT Vmax 1 m/sec - LVOT VTI 20 cm - LVOT peak gradient 4 mmHg - LVOT mean gradient 2 mmHg - TRE Vmax 0.7 m/sec - Name Value Normal Range TR Vmax 2.3 m/sec - TR peak gradient 21 mmHg - RAP 3 mmHg - RVSP 24 mmHg - IVC diameter 1.6 cm - Name Value Normal Range PV Vmax 0.7 m/sec - PV peak gradient 2 mmHg -
[2018-03-10 12:16] LABS: Hematocrit 29 % (35-47); Hemoglobin 9.7 g/dl (12.0-16.0); Mean Corpuscular HGB Conc 33 g/dl (31-36); Mean Corpuscular Hemoglobin 35 pg (27-31); Mean Corpuscular Volume 103 fL (80-97); Red Cell Distribution Width 24 % (10.5-15); White Blood Count 5.7 10^3/ul (3.5-10.8)
[2018-03-10 12:21] LABS: INR 1.72 (0.77-1.02)
[2018-03-10 13:00] LABS: ABS Basophils 0 10^3/ul (0-0.2); ABS Eosinophils 0 10^3/ul (0-0.6); ABS Lymphocytes 1.6 10^3/ul (1.0-4.8); ABS Monocytes 0.3 10^3/ul (0-0.8); ABS Neutrophils 3.8 10^3/ul (1.5-7.7); ABS Nucleated RBC 0.1 10^3/ul; Eosinophil % 0.1 %; Lymphocyte % 27.5 %; Mean Platelet Volume 7.4 fL (7.4-10.4); Nucleated Red Blood Cells % 1.1; Platelet Count 77 10^3/ul (150-450)
[2018-03-10 14:22] LABS: % Iron Saturation 75 % (15-55); Iron 79 ug/dL (50-212); Total Iron Binding Capacity 105 mcg/dL (250-450); Transferrin < 75 mg/dL (203-362)
--- NOTE | 2018-03-10 14:37 | CONSULT ---
Consult Consult: WOUND CONSULT NOTE Date of Service: 03/10/18 History: Interval History: Patient seen and examined at bedside. Denies complaints at this time, has right hip pain when moved in bed. Ms. Valdez has recently had significant peripheral neuropathy that has been worked up by Dr. Schwartz and she received IVIG. She has also been following with GI. She has continued to drink alcohol and has been noted to be declining over the past month. She has been having difficulty with ambulation secondary to sensory loss. On the evening of 03/07 Ms. Valdez had a fall resulting in right hip pain. She presented to the emergency room where she was found to have a right hip fracture. She has also reported difficulty with swallowing, with coughing after eating and drinking. She has been seen in consult by orthopedics , oncology and neurology. She was noted to have skin breakdown to her coccyx and left posterior knee on admission. Past Medical/Family/Social History: Family History: Unchanged from Admission Social History: Unchanged from Admission Past Medical History: Unchanged from Admission Objective: Active Medications: Morphine Sulfate (Morphine Inj ((Syringe))*) [address] Reason: PAIN - MILD Lorazepam (Ativan Inj*) 0 - 3 mg IV PUSH .PER [facility] PROTOCOL [facility]; Protocol Ondansetron HCl (Zofran Inj*) 4 mg IV Q4H PRN Reason: NAUSEA/VOMITING Lidocaine (Lidoderm 5% Patch*) 1 patch TRANSDERM DAILY [facility] Acetaminophen (Tylenol Tab*) 650 mg PO Q4H PRN Reason: FEVER/PAIN Clotrimazole (Clotrimazole 1%*) 1 applic TOPICAL BID [facility] Docusate Sodium (Colace Cap*) 100 mg PO BID PRN Reason: CONSTIPATION Folic Acid (Folvite Tab*) 1 mg PO DAILY [facility] Heparin Sodium (Porcine) (Heparin Vial(*)) 5,000 units SUBCUT Q8H [facility] Stop: 03/10/18 23:59 Lorazepam (Ativan Tab(*)) 1 mg PO BID [facility] Multivitamins/Minerals (Theragran/Minerals Tab*) 1 tab PO DAILY [facility] Oxycodone HCl (Oxycontin(*)) 10 mg PO BID [facility] Oxycodone/Acetaminophen (Percocet 5/325 Tab*) 1 tab PO TID PRN Reason: PAIN Pantoprazole Sodium (Protonix Iv*) 40 mg IV DAILY [facility] Pharmacy Profile Note (Lidocaine Patch Remove*) 1 note N/A 2100 [facility] Sodium Chloride (Ns 0.9% 1000 Ml) 1,000 mls @ 50 mls/hr IV .PER RATE [facility] Thiamine HCl (Vitamin B-1 Tab*) 100 mg PO BID [facility] Vital Signs: 03/10/18 11:10 Temperature 98.3 F Temperature Oral Source Pulse Rate 91 Respiratory 16 Rate Blood Pressure 91/63 (mmHg) Blood Pressure 69 Mean O2 Sat by Pulse 94 Oximetry Patient on Room Yes Air Exam: General: Frail appearing female laying in bed in no acute distress. Neurological: Alert and Oriented. Skin: Coccyx: Stage 2 pressure injury - 1 cm x 1 cm x 0.1 cm Left posterior knee: Abrasion - 2 cm x 3.5 cm x 0.1 cm. There is also a scabbed abrasion to the posterior right knee caused by a medical diagnostic radiographer (SCD). Skin to bilateral hands is dry and with cracking noted to the knuckles. Data: Labs: 03/09/18 03/10/18 03/10/18 18:39 06:04 11:42 WBC 5.7 Hgb 9.7 L Hct 29 L Plt Count 77 L Sodium 135 Potassium 3.7 Chloride 98 L Carbon Dioxide 32 BUN 17 Creatinine < 0.30 L Glucose 72 Total Protein 3.9 L Albumin 1.5 L Prealbumin 6 L Assessment/Plan: Ms. Valdez is a 48 yo female with PMH significant for colon cancer, alcohol abuse and severe progression of peripheral neuropathy with unknown etiology, who presented to the emergency room after falling. 1. Stage 2 pressure injury to coccyx. Recommend barrier cream and frequent turning. 2. Abrasions to bilateral posterior knees. Suspect right knee abrasion is secondary to medical diagnostic radiographer (SCDs) and left posterior knee is now open, suspect secondary to medical diagnostic radiographer (SCDs). Recommend a non stick dressing to provide protection to the skin. 3. Severe malnutrition. Albumin is 1.5 and Pre-albumin is 6. This is evidenced by muscle wasting and weight loss. This will prevent wound healing. VTE PPX: SQ Heparin Diet: Regular diet Code Status: Full Code Disposition: Inpatient. Disposition per Primary Medicine Team. Time Spent: 15 minutes was spent with the patient assessing, measuring and photographing wounds. Attending: Dr. Ludivina Rowan MD
[2018-03-10 14:42] LABS: Ferritin 290.7 ng/mL (11-307)
--- NOTE | 2018-03-10 15:47 | HOSP.PREOP ---
Subjective Date of Service: 03/10/18 Interval History: 48 yo F with hx of rectal cancer dx in 2007 s/p chemoradiation and surgery c/b elevated tumor markers and ? new metastatic dz, FTT and BMI 13, EtOH use d/o and dependence, peripheral neuropathy being evaluated for cardiac risk assessment for non cardiac surgery. Surgery: R hip ORIF Planned date: 03/11 Active Cardiac Conditions: No hx of PA, no current decompensation CHF, sig arrhythmia, severe or sx MS. RCRI: h/o CAD-no h/o CHF-no h/o CVA-no h/o DM-No Gladys; insuff-No Surgery Specific Risk: Intermediate Orthopedic Functional Capacity: 1-4 METS only, she can walk indoors < 1/2 flat bloack EKG: Poor quality in ER 03/09, no e/o active ischemia B/c pt is <4 METs fxnl capacity with intermediate risk surgery electrocardiogram was done which shows no actionable item that will change mgmt Review of Systems - Measurements Intake and Output: Intake and Output Last 24 Hours 03/08/18 03/09/18 03/10/18 03/11/18 06:59 06:59 06:59 06:59 Intake Total 669 Output Total 250 Balance 419 Weight 81 lb Intake: Oral 150 Packed Cells 519 Output: Urine 0 Straight Cath 250 - Review of Systems Constitutional Symptoms: Positive: Weakness, Fatigue, Night Sweats, Unexplained Falls Dermatology: Negative: Normal, Rash, Skin Lesions, Cancer, Skin Lumps, Other HEENT: Negative: Normal, Change in Hearing, Vertigo, Dental Problems, Tinnitus, Sinus Problem, Other Eyes: Negative: Normal, Change in Vision, Double Vision, Eye Pain, Glaucoma, Cataract, Contacts or Glasses, Other Thyroid: Negative: Normal, Goiter, Thyroid Nodule, Cold Intolerance, Heat Intolerance , Sweatiness, Tremor, Frequent Defecation, Constipation, Palpitations, Primary Hypothyroidism, Primary Hyperthyroidism, Weight Loss, Weight Gain, Change in Skin/Hair, Change in Menstruation, Radiation Exposure, Other Pulmonary: Positive: Shortness of Breath Cardiology: Positive: Faintness Gastroenterology: Positive: Abdominal Pain, Vomiting, Anorexia Genital - Urinary: Negative: Normal, Dysuria, Hematuria, Polyuria, Nocturia, Other Genitourinay - Female: Negative: Menses Normal, Vaginal Discharge, Menopause, Dysmenorrhea, Other Endocrinology: Negative: Normal, Thyroid Problems, Adrenal Problems, Gonadal Problems, Family Hx Endocrine Disorders, Obesity, Diabetes Mellitus, Hyperglycemia, Hx Hypoglycemia, Diabetic Foot Ulcers, Calluses, Hirsutism, Menstral Abnormalities , Polydipsia, Polyuria, Gonadal Problems, Gynecomastia, Pituitary disease, Other Hematologic/Lymphatic: Positive: Anemia Neurology: Positive: Headache, Numbness\Paresthesiae Psychiatry: Positive: Depression, Anxiety Allergic/Immunologic: Negative: Hx Anaphylaxis, Hx Angioedema, Hx Environmental, Hx Seasonal, Athsma, Hx HIV, Immunocompromise, Swollen Glands LymphNodes, Other Objective Active Medications: Acetaminophen (Tylenol Tab*) 650 mg PO Q4H PRN PRN Reason: FEVER/PAIN Clotrimazole (Clotrimazole 1%*) 1 applic TOPICAL BID [facility] Last Admin: 03/10/18 11:06 Dose: 1 applic Docusate Sodium (Colace Cap*) 100 mg PO BID PRN PRN Reason: CONSTIPATION Folic Acid (Folvite Tab*) 1 mg PO DAILY [facility] Last Admin: 03/10/18 11:05 Dose: 1 mg Lidocaine (Lidoderm 5% Patch*) 1 patch TRANSDERM DAILY [facility] Last Admin: 03/10/18 11:06 Dose: 1 patch Loperamide HCl (Imodium Cap*) 2 mg PO .SEE DIRECTIONS PRN PRN Reason: DIARRHEA Lorazepam (Ativan Tab(*)) 1 mg PO BID [facility] Last Admin: 03/10/18 11:05 Dose: 1 mg Lorazepam (Ativan Inj*) 0 - 3 mg IV PUSH .PER [facility] PROTOCOL [facility]; Protocol Morphine Sulfate (Morphine Inj ((Syringe))*) 2 mg IV Q4H PRN PRN Reason: PAIN - MILD Last Admin: 03/10/18 10:38 Dose: 2 mg Multivitamins/Minerals (Theragran/Minerals Tab*) 1 tab PO DAILY [facility] Last Admin: 03/10/18 11:06 Dose: 1 tab Ondansetron HCl (Zofran Inj*) 4 mg IV Q4H PRN PRN Reason: NAUSEA/VOMITING Oxycodone HCl (Oxycontin(*)) 10 mg PO BID [facility] Last Admin: 03/10/18 11:20 Dose: 10 mg Oxycodone/Acetaminophen (Percocet 5/325 Tab*) 1 tab PO TID PRN PRN Reason: PAIN Last Admin: 03/10/18 00:23 Dose: 1 tab Pantoprazole Sodium (Protonix Iv*) 40 mg IV DAILY [facility] Last Admin: 03/10/18 10:38 Dose: 40 mg Pharmacy Profile Note (Lidocaine Patch Remove*) 1 note N/A 2100 [facility] Senna (Senokot Tab*) 1 tab PO BID PRN PRN Reason: CONSTIPATION Thiamine HCl (Vitamin B-1 Tab*) 100 mg PO BID [facility] Last Admin: 03/10/18 11:06 Dose: 100 mg Vital Signs - 8 hr 03/10/18 03/10/18 03/10/18 07:50 08:33 10:38 Temperature 98.6 F Pulse Rate 94 Respiratory 16 14 16 Rate Blood Pressure 87/60 (mmHg) O2 Sat by Pulse 92 Oximetry 03/10/18 03/10/18 03/10/18 11:05 11:10 11:20 Temperature 98.3 F Pulse Rate 91 Respiratory 14 16 14 Rate Blood Pressure 91/63 (mmHg) O2 Sat by Pulse 94 Oximetry Oxygen Devices in Use Now: None Appearance: See progress note for active PE Result Diagrams: 03/10/18 11:42 03/10/18 06:04 Microbiology and Other Data: Microbiology 03/09/18 20:59 Stool Occult Blood ([facility]) - Final Stool Assessment/Plan - Billing Assessment: 48 yo F with H rectal Ca s/p chemo radiation and surery in 2007, followed by Dr. Harry with elevated tumor markers, EtOH use d/o, peripheral neuropathy, failure to thrive with current BMI 13 who presented s/p mechcnial fall found to have R hip fracture and anemia to 7 s/p 2 U PRBC. Hospital course c/b possibly new metastatic dz] Her RCRI score is 0 and an echo was done in the setting of dypsena with unknown origin and no TTE in the past 12 mos. She has poor functional status, but overall total cardiac risk of major arrythmia or fatal cardiac event is 3.9% . Pt understands these risks and wishes to proceed to OR on 03/11
[2018-03-10] MEDS ORDERED: Heparin VIAL(*) 5000 UNITS/ML VIAL (FIVE THOUSAND) SUBCUT SCH (17:30)
[2018-03-10] MEDS ORDERED: NS 0.9% 1000 ML** 1,000 ML IV SCH (18:45)
[2018-03-10] MEDS ORDERED: ceFAZolin 1 GM ADVAN(*) 1 GM in NS 0.9% 50 ML* 50 ML IVPB SCH (19:00)
--- NOTE | 2018-03-10 19:12 | CONS ---
CONSULTATION REPORT: DATE OF CONSULT: 03/10/18 PATIENT OF: Dr. Harry and Dr. Schwartz. HISTORY OF PRESENT ILLNESS: This is a 48-year-old woman who I am asked to evaluate for her neuropathy. She presented yesterday with a fall and a broken hip. She has had other falls and has broken her wrist as well as she has a history of osteoporosis. I had seen her in December 2017 for her neuropathy when Dr. Schwartz had admitted her to the hospital. She had as part of that workup, a normal CSF including paraneoplastic antibodies and she had MRI scans and EMG. The EMG showed a significant primary sensory neuropathy. Dr. Schwartz has been treating her with IVIG as well as steroids and she notes that to this point it has worked. Dr. Schwartz had last seen her on 01/26/18 following a hospitalization for abdominal pain. At that point, she had some left facial numbness and thought there may have been improvement due to the IVIG. She has had a past history of rectal cancer in 2007 and received radiation, 5- FU and oxaliplatin and had surgery. She developed her numbness following chemotherapy and was left with residual numbness in her hands and feet, and since the spring she has had increasing numbness and pain in her feet and has been increasingly unsteady. Her B12 has been normal. She does have a history of alcohol use. PAST MEDICAL HISTORY: She also has a history of small bowel obstruction, osteoporosis, history of alcohol abuse, past history of B12 deficiency, chronic pain, malnutrition, chronic pancreatitis, severe peripheral neuropathy with rapid progression, nondisplaced fracture of the right distal radial metaphysis last month, and past history of rectal cancer as described above. MEDICATIONS: Currently include: 1. Folic acid 1 mg daily. 2. Famotidine 40 mg daily. 3. Percocet 1 tab t.i.d. as needed. 4. Thiamine 100 mg p.o. b.i.d. 5. Imodium 2 mg as needed. 6. Ativan b.i.d. 7. OxyContin 10 mg b.i.d. 8. She is also getting her infusions of IVIG and steroids and she has had 3 to 4 so far. ALLERGIES: She is allergic to CIPRO. FAMILY HISTORY: Noncontributory. REVIEW OF SYSTEMS: Negative in all 14 spheres other than HPI. PHYSICAL EXAM: Temperature 98.3, pulse 91, respirations 14, blood pressure 91/ 63. She is alert and oriented with normal speech and comprehension. Cranial nerves II through XII were intact. Motor exam revealed 5-/5 weakness throughout her right leg, it is not tested since she has a broken hip there. Reflexes were trace. She had a glove stocking vibratory sensory loss. Chest: Clear. Cardiovascular: Regular rate and rhythm. Abdomen: Soft with positive bowel sounds. LABORATORY DATA: Labs include white count of 5.7, hematocrit 29, platelet count 77,000. INR of 1.72, PTT 33. CMP had a creatinine of less than 0.3, glucose 72, calcium 7.1. TIBC 105. Normal bilirubin. AST 85, ALT 53, alk phos 210. Ammonia was 100. B12 was greater than 1450. TSH was normal. Albumin was 1.5. IMPRESSION AND PLAN: Radha has severe peripheral neuropathy, which may be in part due to chemotherapy, in part alcoholic. There had been a past low B12, which may have contributed. Dr. Schwartz is treating for possible immunologic cause of her neuropathy. I will be discussing her case with him. I wonder whether she needs the steroids too because of not tolerating the IVIG. I wonder whether I would back off the steroids since she already has osteoporosis and has low platelets and has a history of alcoholism, I do not want to cause secondary problems like worsening osteoporosis or GI bleed. The other thing is her ammonia is elevated and I will talk to her covering doctor one of the concerns for treating with lactulose at this point is it could cause diarrhea and that might cause a problem with wound infection potentially with her hip fracture and it does not seem like there has been a change in mental status, this may need to be addressed, but we may want to just follow for now, but I will be speaking to her doctor about this issue as well. Thank you for sharing her case. [id number]/[facility] #: [id number] ADDEND: I spoke to Daryl about the above issues and he is planning on seeing her on Thursday and deciding on the plan going forward at that point. YOLY
[2018-03-10 20:06] LABS: Albumin 1.7 g/dL (3.2-5.2); Albumin/Globulin Ratio 0.6 (1-3); Globulin 2.8 g/dL (2-4); Indirect Bilirubin 0.7 mg/dL (0.3-1.0); Total Bilirubin 1.3 mg/dL (0.2-1.0); Total Protein 4.5 g/dL (6.4-8.9)
[2018-03-10 20:07] LABS: Anion Gap 4 mmol/L (2-11); Blood Urea Nitrogen 18 mg/dL (6-24); CO2 Carbon Dioxide 32 mmol/L (22-32); Chloride 97 mmol/L (101-111); EGFR African American 286.1 (>60); EGFR Non-African American 236.5 (>60); Glucose 105 mg/dL (70-100); Potassium 3.5 mmol/L (3.5-5.0); Sodium 133 mmol/L (135-145)
[2018-03-10] MEDS: ceFAZolin* 2 GM* Q8H (Duplex) IVPB SCH (20:57)
[2018-03-10] MEDS: Lidocaine Patch REMOVE* 1 NOTE MISC SCH (21:20)
[2018-03-11 00:42] LABS: Urine Appearance Cloudy; Urine Bacteria 3+ (Absent); Urine Bilirubin Negative (Negative); Urine Blood 1+ (Negative); Urine Color Amber; Urine Glucose Negative (Negative); Urine Ketones Negative (Negative); Urine Nitrite Positive (Negative); Urine Protein 1+(30 mg/dL) (Negative); Urine Red Blood Cell 3+(>10/hpf) (Absent); Urine Specific Gravity > 1.060 (1.010-1.030); Urine Transitional Epithelial Present (Absent); Urine Urobilinogen Positive (Negative); Urine White Blood Cell 3+(>20/hpf) (Absent)
--- NOTE | 2018-03-11 02:44 | CONS ---
CC: Dr. Annita Colón; Dr. Schwartz; Dr. Atilio Harry * MEDICAL ONCOLOGY CONSULTATION: DATE OF ADMISSION: 03/09/18 DATE OF CONSULTATION: 03/10/18 REASON FOR CONSULTATION: Marked worsening of overall medical status in the setting of prior rectal carcinoma. HISTORY OF PRESENT ILLNESS: Radha Valdez is a 48-year-old female known to our office since 2007, at which point she had a rectal cancer 7 cm in the anal verge. She received neoadjuvant radiation therapy and constant infusion 5-FU which was poorly tolerated. She subsequently had a sphincter sparing surgery in [place], then adjuvant FOLFOX chemotherapy. She has had no evidence of any recurrent disease since that period of time. She had a followup admission in 2008 for small bowel obstruction which resolved with conservative measures. She has had persistent pelvic and coccygeal pain since then, although this seemed to quiet down over a course of number of years. She has had a persistently elevated CEA, mostly in the 10 to 12 range for many years, but starting to rise in the fall of 2014 up to 15 and more recently up to just over 20. In spite of the elevated CEA, she has never had any evidence for metastatic carcinoma. PET scan in the fall of 2014 was without any evidence for likely recurrence. She has had subsequently multiple CT scans performed including a CT scan of the chest, abdomen, and pelvis on 12/17/[address] of the abdomen and pelvis on this admission. On none of these occasions has she been found to have metastatic disease. This admission on her chest x-ray, she was thought to have a 2 lung nodules, but these seemed to be very symmetric and rounded, and on nipple markers being placed appeared to be nipple shadows and not lung lesions. Initial liver ultrasound obtained on 03/09/18 reported a 2 cm mass/cystic lesion in the pancreas, in addition reported a 10.1 cm mass which was complex cystic deep to the pancreas. She has been known to have 2 cm mass/pseudocyst for years since her prior episode of pancreatitis in 2015. It seems that she may have likely developed the 10 cm mass between the CT scan of the abdomen and pelvis of December and now, but to be on the safe side, a CT of the abdomen and pelvis was obtained on the day of this consultation. This confirmed that she had the mass on review towards the tail of the pancreas which was unchanged, although not reported out in the current report and also that there was no large mass posterior to the pancreas. Liver was diffusely low in attenuation without any focal hepatic lesions. There is focal fatty sparing in locations. The liver did not appear to have a cirrhotic edge. Bilateral pleural effusions were noted consistent with her low albumin. Multiple fractures were noted in the ribs as well as the known right femoral proximal fracture. The patient has been seen in our office on several occasions over the past year. When seen last July, she had developed significant worsening of peripheral neuropathy and was referred to Neurology. Unfortunately, due to staffing issues, her initial visit to Neurology was delayed by several months. When she was seen in December 2017 by Neurology, by Dr. Schwartz, she was admitted to the hospital for further workup as she had developed a marked increase in her neuropathy at that time including some facial numbness, numbness in the legs and in the arms. An extensive workup was performed including CSF which was normal, paraneoplastic proteins which were normal, MRI scans which were normal. EMG revealed significant primary sensory neuropathy. She was treated initially with IV-IgG as well as steroids, but then developed an episode of mild pancreatis and the steroids were stopped. She continues to be on IV-IgG on a regular basis. The patient and her both point out that they feel there has been very little improvement in terms of her neuropathy since she started on these medications. Given her overall weakness and neuropathy, she has had marked difficulties with ambulation over the past several months and especially over the past 2 months. Our office was notified 2 days ago that she was unable to ambulate and we suggested that she go to the emergency room. She declined to do so, but then did present to the emergency room yesterday. She was found to have a right hip fracture. She has had a longstanding history of alcohol use and abuse. She reports drinking only slightly at the present time, but family has reported that she has been drinking up to 4 or 5 drinks per day and sometimes more. She has had a marked decline in terms of her neuropathy, in terms of her overall strength, in terms of her nutritional status and weight over the past 6 months and especially over the past 2 to 3 months. She denies any changes in her bowel habits, although she does report occasionally some black stools and at times bright red blood per rectum. She believes this is due to hemorrhoids. She currently lives essentially alone, although her and daughter who are in town frequently help her out and it is actually necessary to help her ambulate from room to room. PAST MEDICAL HISTORY: Otherwise significant for chronic pancreatitis with hospitalization in 2016; history of malnutrition with markedly diminished albumin and prealbumin; history of chronic pain syndrome, on chronic narcotics; history of B12 deficiency; history of alcohol use and abuse; history of osteoporosis; history of small bowel obstruction; history of severe peripheral neuropathy as described above. Recently has had other fractures due to falls and in addition to the current hip fracture, having sustained rib fractures and also sustained nondisplaced fracture of the distal radial metaphysis on the right in late January. MEDICATIONS: At the time of admission include: 1. Folic acid 1 mg daily. 2. Famotidine 40 mg daily. 3. Calcium citrate 1 tablet daily. 4. Percocet 1 tablet t.i.d. p.r.n. 5. Thiamine 100 mg b.i.d. 6. Multivitamin. 7. Imodium 2 mg as needed. 8. Ativan b.i.d. 9. OxyContin 10 mg b.i.d. ALLERGIES: CIPROFLOXACIN. FAMILY HISTORY: No significant oncologic or hematologic history. SOCIAL HISTORY: She is , but . She no longer smokes. She continues to drink as discussed above. REVIEW OF SYSTEMS: In addition to above, appetite has been extremely poor, has had ongoing episodes of diarrhea, has developed some skin tears in multiple fingers, on her arms, and also has small decubitus ulcers and skin tears by the rectum. Neurologic status as discussed above. Denies any shortness of breath, chest pain, or palpitations. Denies any significant abdominal pain. PHYSICAL EXAMINATION: A 48-year-old female, in no acute distress. Vital Signs : Stable. HEENT: PERRL, EOMI. Subconjunctival hemorrhage on the left. There is no scleral icterus. No palpable cervical, supraclavicular, or axillary adenopathy. Lungs: Clear. Heart: 1-2/6 systolic murmur. Abdomen: Soft, nontender without masses or organomegaly. Extremities: 2+ pitting edema bilaterally. Neurologic Exam: Reveals a marked weakness throughout. She is answering questions appropriately. Dermatologic: She has some open areas on her hands, also open areas on her lips, and has a slight amount of oozing from each of these areas while I am discussing things with her. DIAGNOSTIC STUDIES/LAB DATA: CBC with a white count of 6000, H and H 24/7.9 with an MCV of 115, and platelet count of 111,000 on admission. Today, H and H of 29/9.7 and platelet count having fallen to 77. She has received 2 units of packed red blood cells since admission. Chemistry studies; sodium 135, potassium 3.7, chloride 98, bicarb 32, BUN 17, creatinine less than 0.3, glucose 72. Bilirubin 1.0, AST 85, ALT 53, alk phos 210. The transaminases of the past month have been certainly higher than she has had previously. Today, the bilirubin is up to 1.3 with a 0.6 direct. Albumin is extremely low at 1.5 and prealbumin is 6. Imaging: As discussed above. Please see the above for reports of chest x-ray, ultrasound, and CT scan of the abdomen and pelvis. IMPRESSION: A 48-year-old female, longstanding patient in our office, known for the past 10 years. She had had a previous rectal cancer and had done well with this without any signs of local recurrence or distant recurrence over this entire period of time. She has had a persistently elevated CEA, but this has never been proven to be associated with recurrence in her case. There were some initial issues with potential recurrence seen on chest x-ray with reportedly 2 lung nodules, which turned out to be nipple shadows and with a reported mass behind the pancreas, which turns to be either artifact or misreading of the original ultrasound. She has an ongoing mass in the tail of the pancreas which is a pseudocyst from her prior pancreatitis. In summary, no evidence for recurrence of her carcinoma. She has had a marked decline in her overall status over the past 6 months with marked weakness, marked decrease in neurologic functioning, marked decrease in overall weight and in nutritional status. Some of these relate to neuropathy for which she has been worked up and continues to be worked up and treated by Neurology. No clear etiology has been found. 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 She also has had issues with B12 and has been treated given her alcoholism with thiamine. Her liver synthetic function/nutritional status is poor given elevated INR at 1.85 on admission and 1.72 today, despite not being on anticoagulation. Along with this, she has a very low albumin and prealbumin. These all michael poorly for future liver function. In addition, she has been found to have an elevated ammonia level of 100, this has never been checked before. I was initially was discussing the situation with her alone, then I discussed it with her and her present. At this time, we mentioned she is a much higher than normal risk for her hip surgery given poor functional overall status , in addition very poor liver functions synthetically, very poor overall performance status given severe protein-calorie malnutrition and given severe peripheral neuropathy for which she is not improving. I think she is at high risk for complications following surgery, although this should not preclude her from having surgery. At the end of this discussion, I discussed her situation with her hospitalist covering doctor, Dr. Thomas, and then subsequent to this, I was informed by Dr. Thomas that she now has positive blood cultures for Staphylococcus aureus in 1/4 bottles. She certainly is at high risk for staph given all of her skin lesions. Decision was made to postpone her surgery given the positive bacteremia. Subsequent to this, Dr. Thomas and myself had a long and bereket discussion with the patient and her . It was explained to them that she will need to have her surgery postponed that she is at extremely high risk for surgery given liver failure with poor liver synthetic function, with severe neuropathy and the chance of this would never recover as well as severe malnutrition. She will be seen tomorrow by the Palliative Care Service in an attempt to better define her expectations and wishes. At the present time, she is wishing to go forward with IV antibiotics and upon resolution of positive blood cultures, would wish to proceed to surgery. As noted above, although there is no major issues from a cardiac or pulmonary standpoint, she remains at significantly higher risk than the average patient for complications of surgery with her liver failure, with her liver synthetic function, with her severe neuropathy and lack of mobility, and with her severe malnutrition. The patient will be continued to be followed by the hospitalist service and is also being seen by consultants in Neurology, ID, GI, and Palliative Care. We will continue to follow her on an as needed basis during the hospitalization as we have had a longstanding relationship with her. [id number]/[facility] #: [id number] YOLY
[2018-03-11] MEDS: ceFAZolin* 2 GM* Q8H (Duplex) IVPB SCH ×3 (05:08→21:16)
[2018-03-11 05:15] LABS: ABS Basophils 0 10^3/ul (0-0.2); ABS Eosinophils 0 10^3/ul (0-0.6); ABS Lymphocytes 1.2 10^3/ul (1.0-4.8); ABS Monocytes 0.4 10^3/ul (0-0.8); ABS Neutrophils 3.5 10^3/ul (1.5-7.7); ABS Nucleated RBC 0 10^3/ul; Eosinophil % 0.1 %; Hematocrit 26 % (35-47); Lymphocyte % 23.8 %; Mean Corpuscular HGB Conc 34 g/dl (31-36); Mean Corpuscular Hemoglobin 35 pg (27-31); Mean Corpuscular Volume 102 fL (80-97); Nucleated Red Blood Cells % 0.8; Platelet Count 72 10^3/ul (150-450); Red Blood Count 2.58 10^6/ul (4.00-5.40); Red Cell Distribution Width 23 % (10.5-15); White Blood Count 5.1 10^3/ul (3.5-10.8)
[2018-03-11 05:19] LABS: INR 1.6 (0.77-1.02)
[2018-03-11] MEDS: oxyCODONE SR TAB(*) 10 MG TAB.SR PO SCH ×2 (07:34→20:32)
[2018-03-11] MEDS: Thiamine TAB* 100 MG TAB PO SCH ×2 (07:35→20:31)
[2018-03-11] MEDS: Multivitamins/Minerals TAB PO SCH (07:35)
[2018-03-11] MEDS: Folic Acid TAB* 1 MG PO SCH (07:35)
[2018-03-11] MEDS: LORazepam TAB(*) 1 MG PO SCH ×2 (07:35→20:31)
[2018-03-11] MEDS: Pantoprazole IV* 40 MG IV SCH (07:39)
[2018-03-11] MEDS: oxyCODONE/Acetamin 5/325 MG* TAB PO PRN ×2 (07:50→18:24)
[2018-03-11] MEDS: Lidocaine PATCH 5%* 1 PATCH TRANSDERM SCH (08:13)
[2018-03-11] MEDS: Clotrimazole 1% CREAM* 45 GM TOPICAL SCH ×2 (08:13→20:33)
[2018-03-11] MEDS ORDERED: Phytonadione Oral Solution* 5 MG/25 ML UDC PO ONE (08:16)
--- NOTE | 2018-03-11 12:42 | PN ---
Progress Note - Progress Note Date of Service: 03/11/18 SOAP: Subjective: []Pt was seen at bedside today, family is present. She is sleeping with only minimal arousal. Family confirms she was awake this morning with complaint of pain everywhere. Objective: []General: NAD, asleep, minimal arousal RLE: ecchymosis of hip, thigh remains soft, DP2+ Calves without erythema, edema or palpable cords Assessment: []right hip displaced intertrochanteric hip fracture. Plan: []NWB RLE Bacteremia delays surgical intervention. Hip fracture requires a right hip ORIF with a cephalomedullary nail when medically optimized. Vital Signs Temp 99.1 F 03/11/18 11:25 Pulse 85 03/11/18 11:25 Resp 16 03/11/18 11:25 BP 96/62 03/11/18 11:43 Pulse Ox 97 03/11/18 11:25 Intake & Output 03/10/18 03/11/18 03/11/18 18:59 06:59 18:59 Intake Total 80 120 Output Total 350 Balance -270 120 Intake: IV Fluids 50 ABX - CEFAZOLIN 50 Oral 30 120 Output: [place] 350 Other: Date of Last Bowel 03/11/18 Movement # Bowel Movements 2 2 Estimated Stool Amount Medium Medium Laboratory Last Values WBC 5.1 10^3/ul (3.5-10.8) 03/11/18 05:06 RBC 2.58 10^6/ul (4.00-5.40) L 03/11/18 05:06 Hgb 9.0 g/dl (12.0-16.0) L 03/11/18 05:06 Hct 26 % (35-47) L 03/11/18 05:06 MCV 102 fL (80-97) H 03/11/18 05:06 MCH 35 pg (27-31) H 03/11/18 05:06 MCHC 34 g/dl (31-36) 03/11/18 05:06 RDW 23 % (10.5-15) H 03/11/18 05:06 Plt Count 72 10^3/ul (150-450) L 03/11/18 05:06 MPV 7.0 fL (7.4-10.4) L 03/11/18 05:06 Neut % (Auto) 68.3 % 03/11/18 05:06 Lymph % (Auto) 23.8 % 03/11/18 05:06 [place] % (Auto) 7.4 % 03/11/18 05:06 Eos % (Auto) 0.1 % 03/11/18 05:06 Baso % (Auto) 0.4 % 03/11/18 05:06 Absolute Neuts (auto) 3.5 10^3/ul (1.5-7.7) 03/11/18 05:06 Absolute Lymphs (auto) 1.2 10^3/ul (1.0-4.8) 03/11/18 05:06 Absolute Monos (auto) 0.4 10^3/ul (0-0.8) 03/11/18 05:06 Absolute Eos (auto) 0 10^3/ul (0-0.6) 03/11/18 05:06 Absolute Basos (auto) 0 10^3/ul (0-0.2) 03/11/18 05:06 Absolute Nucleated RBC 0 10^3/ul 03/11/18 05:06 Nucleated RBC % 0.8 03/11/18 05:06 Hem Pathologist Commnt 03/10/18 06:04 INR (Anticoag Therapy) 1.60 (0.77-1.02) H 03/11/18 05:06 APTT 33.0 seconds (26.0-36.3) 03/09/18 18:39 Sodium 133 mmol/L (135-145) L 03/10/18 18:44 Potassium 3.5 mmol/L (3.5-5.0) 03/10/18 18:44 Chloride 97 mmol/L (101-111) L 03/10/18 18:44 Carbon Dioxide 32 mmol/L (22-32) 03/10/18 18:44 Anion Gap 4 mmol/L (2-11) 03/10/18 18:44 BUN 18 mg/dL (6-24) 03/10/18 18:44 Creatinine < 0.30 mg/dL (0.51-0.95) L 03/10/18 18:44 Est GFR ( Amer) 286.1 (>60) 03/10/18 18:44 Est GFR (Non-Af Amer) 236.5 (>60) 03/10/18 18:44 BUN/Creatinine Ratio 60.0 (8-20) H 03/10/18 18:44 Glucose 105 mg/dL (70-100) H 03/10/18 18:44 Lactic Acid 1.4 mmol/L (0.5-2.0) 03/09/18 18:39 Calcium 7.0 mg/dL (8.6-10.3) L 03/10/18 18:44 Magnesium 1.5 mg/dL (1.9-2.7) L 03/09/18 18:39 Iron 79 ug/dL (50-212) 03/10/18 06:04 TIBC 105 mcg/dL (250-450) L 03/10/18 06:04 % Saturation 75 % (15-55) H 03/10/18 06:04 Unsat Iron Binding < 90 ug/dL 03/10/18 06:04 Transferrin < 75 mg/dL (203-362) L 03/10/18 06:04 Ferritin 290.7 ng/mL (11-307) 03/10/18 06:04 Total Bilirubin 1.30 mg/dL (0.2-1.0) H 03/10/18 18:44 Direct Bilirubin 0.60 mg/dL (0.03-0.18) H 03/10/18 18:44 Indirect Bilirubin 0.7 mg/dL (0.3-1.0) 03/10/18 18:44 AST 88 U/L (13-39) H 03/10/18 18:44 ALT 62 U/L (7-52) H 03/10/18 18:44 Alkaline Phosphatase 239 U/L (34-104) H 03/10/18 18:44 Ammonia 138 mcmol/L (16-53) H 03/11/18 05:06 Troponin I 0.01 ng/mL (<0.04) 03/09/18 18:39 C-Reactive Protein 92.27 mg/L (<8.01) H 03/09/18 18:39 B-Natriuretic Peptide 316 pg/mL (<=100) H 03/09/18 18:39 Total Protein 4.5 g/dL (6.4-8.9) L 03/10/18 18:44 Albumin 1.7 g/dL (3.2-5.2) L 03/10/18 18:44 Globulin 2.8 g/dL (2-4) 03/10/18 18:44 Albumin/Globulin Ratio 0.6 (1-3) L 03/10/18 18:44 Prealbumin 6 mg/dL (18-38) L 03/09/18 18:39 Lipase 17 U/L (11.0-82.0) 03/09/18 18:39 Vitamin B12 > 1450 pg/mL (180-914) H 03/09/18 18:39 TSH 1.87 mcIU/mL (0.34-5.60) 03/09/18 18:39 Urine Color Hoep 03/11/18 00:06 Urine Appearance Cloudy 03/11/18 00:06 Urine pH 5.0 (5-9) 03/11/18 00:06 Ur Specific Huguenot > 1.060 (1.010-1.030) H 03/11/18 00:06 Urine Protein 1+(30 mg/dl) (Negative) A 03/11/18 00:06 Urine Ketones Negative (Negative) 03/11/18 00:06 Urine Blood 1+ (Negative) A 03/11/18 00:06 Urine Nitrate Positive (Negative) A 03/11/18 00:06 Urine Bilirubin Negative (Negative) 03/11/18 00:06 Urine Urobilinogen Positive (Negative) A 03/11/18 00:06 Ur Leukocyte Esterase 1+ (Negative) A 03/11/18 00:06 Urine WBC (Auto) 3+(>20/hpf) (Absent) A 03/11/18 00:06 Urine RBC (Auto) 3+(>10/hpf) (Absent) A 03/11/18 00:06 Ur Transition Epith Cell Present (Absent) A 03/11/18 00:06 Urine Bacteria 3+ (Absent) A 03/11/18 00:06 Urine Glucose Negative (Negative) 03/11/18 00:06 Serum Alcohol < 10 mg/dL (<10) 03/09/18 18:39 Blood Type B Positive 03/09/18 18:39 Antibody Screen Negative 03/09/18 18:39 Crossmatch See Detail 03/09/18 18:39
[2018-03-11] MEDS: RiFAXimin* 550 MG TAB PO SCH ×2 (14:12→20:32)
--- NOTE | 2018-03-11 14:13 | PN ---
Subjective Date of Service: 03/11/18 Interval History: Poorly responsive. Objective Active Medications: Acetaminophen (Tylenol Tab*) 650 mg PO Q4H PRN PRN Reason: FEVER/PAIN Clotrimazole (Clotrimazole 1%*) 1 applic TOPICAL BID [facility] Last Admin: 03/11/18 08:13 Dose: 1 applic Docusate Sodium (Colace Cap*) 100 mg PO BID PRN PRN Reason: CONSTIPATION Folic Acid (Folvite Tab*) 1 mg PO DAILY [facility] Last Admin: 03/11/18 07:35 Dose: 1 mg Sodium Chloride (Ns 0.9% 1000 Ml) 1,000 mls @ 50 mls/hr IV .PER RATE [facility] Last Admin: 03/10/18 19:48 Dose: 50 mls/hr Cefazolin Sodium/Dextrose (Kefzol 2 Gm Premix In Ors(*)) 2 gm in 50 mls @ 100 mls/hr IVPB Q8H [facility] Last Admin: 03/11/18 05:08 Dose: 100 mls/hr Lactulose (Lactulose*) 30 ml PO TID [facility] Last Admin: 03/11/18 07:36 Dose: 30 ml Lidocaine (Lidoderm 5% Patch*) 1 patch TRANSDERM DAILY [facility] Last Admin: 03/11/18 08:13 Dose: 1 patch Lorazepam (Ativan Tab(*)) 1 mg PO BID [facility] Last Admin: 03/11/18 07:35 Dose: 1 mg Lorazepam (Ativan Inj*) 0 - 3 mg IV PUSH .PER [facility] PROTOCOL [facility]; Protocol Morphine Sulfate (Morphine Inj ((Syringe))*) 2 mg IV Q4H PRN PRN Reason: PAIN - MILD Last Admin: 03/10/18 17:47 Dose: 2 mg Multivitamins/Minerals (Theragran/Minerals Tab*) 1 tab PO DAILY [facility] Last Admin: 03/11/18 07:35 Dose: 1 tab Ondansetron HCl (Zofran Inj*) 4 mg IV Q4H PRN PRN Reason: NAUSEA/VOMITING Oxycodone HCl (Oxycontin(*)) 10 mg PO BID [facility] Last Admin: 03/11/18 07:34 Dose: 10 mg Oxycodone/Acetaminophen (Percocet 5/325 Tab*) 1 tab PO TID PRN PRN Reason: PAIN Last Admin: 03/11/18 07:50 Dose: 1 tab Pantoprazole Sodium (Protonix Iv*) 40 mg IV DAILY [facility] Last Admin: 03/11/18 07:39 Dose: 40 mg Pharmacy Profile Note (Lidocaine Patch Remove*) 1 note N/A 2100 [facility] Last Admin: 03/10/18 21:20 Dose: 1 note Rifaximin (Xifaxan*) 550 mg PO BID [facility] Thiamine HCl (Vitamin B-1 Tab*) 100 mg PO BID [facility] Last Admin: 03/11/18 07:35 Dose: 100 mg Vital Signs - 8 hr 03/11/18 03/11/18 03/11/18 07:29 07:34 07:35 Temperature Pulse Rate 97 Respiratory 16 16 16 Rate Blood Pressure 98/64 (mmHg) O2 Sat by Pulse 91 Oximetry 03/11/18 03/11/18 03/11/18 07:50 09:30 10:31 Temperature Pulse Rate 87 Respiratory 16 16 Rate Blood Pressure (mmHg) O2 Sat by Pulse 92 Oximetry 03/11/18 03/11/18 11:25 11:43 Temperature 99.1 F Pulse Rate 85 Respiratory 16 Rate Blood Pressure 86/61 96/62 (mmHg) O2 Sat by Pulse 97 Oximetry Oxygen Devices in Use Now: None Appearance: Head sli up in bed, supine. Poorely responsive. Looks comfortable. Eyes: No Scleral Icterus Neck: NL Appearance and Movements; NL JVP, No Thyroid Enlargement, Masses Respiratory: Symmetrical Chest Expansion and Respiratory Effort, Clear to Auscultation, Clear to Percussion Cardiovascular: NL Sounds; No Murmurs; No JVD, RRR, No Edema, - Abdominal: NL Sounds; No Tenderness; No Distention, No Hepatosplenomegaly, - Extremities: No Edema, No Clubbing, Cyanosis, - Skin: No Rash or Ulcers, No Nodules or Sclerosis, - Neurological: - - Did not repsond verbally. Briefly opened her eyes to voice. No tremor. Does not follow commands. Result Diagrams: 03/11/18 05:06 03/10/18 18:44 Microbiology and Other Data: Microbiology 03/09/18 20:59 Stool Occult Blood ([facility]) - Final Stool Assess/Plan/Problems-Billing Assessment: 48 yo F with PMH rectal Ca s/p chemo radiation and surery in 2007, followed by Dr. Harry with elevated tumor markers, EtOH use d/o, peripheral neuropathy, failure to thrive with current BMI 13 who presented s/p mechcnial fall found to have R hip fracture and anemia to 7 s/p 2 U PRBC. Hospital course c/b possibly new metastatic dz] Her RCRI score is 0 and an echo was done in the setting of dypsena with unknown origin and no TTE in the past 12 mos. She has poor functional status, but overall total cardiac risk of major arrythmia or fatal cardiac event is 3.9% . Pt understands these risks and wishes to proceed to OR on 03/11
--- NOTE | 2018-03-11 14:18 | PN ---
Subjective Date of Service: 03/11/18 Interval History: CONTINUATION OF TODAY'S EARLIER NOTE. Objective Active Medications: Acetaminophen (Tylenol Tab*) 650 mg PO Q4H PRN PRN Reason: FEVER/PAIN Clotrimazole (Clotrimazole 1%*) 1 applic TOPICAL BID [facility] Last Admin: 03/11/18 08:13 Dose: 1 applic Docusate Sodium (Colace Cap*) 100 mg PO BID PRN PRN Reason: CONSTIPATION Folic Acid (Folvite Tab*) 1 mg PO DAILY [facility] Last Admin: 03/11/18 07:35 Dose: 1 mg Cefazolin Sodium/Dextrose (Kefzol 2 Gm Premix In Ors(*)) 2 gm in 50 mls @ 100 mls/hr IVPB Q8H [facility] Last Admin: 03/11/18 14:10 Dose: 100 mls/hr Potassium Chloride/Sodium Chloride (Ns 0.9% W/ 20 Meq Kcl 1000 Ml*) 1,000 mls @ 75 mls/hr IV PER RATE [facility] Lactulose (Lactulose*) 30 ml PO TID [facility] Last Admin: 03/11/18 14:12 Dose: 30 ml Lidocaine (Lidoderm 5% Patch*) 1 patch TRANSDERM DAILY [facility] Last Admin: 03/11/18 08:13 Dose: 1 patch Lorazepam (Ativan Tab(*)) 1 mg PO BID [facility] Last Admin: 03/11/18 07:35 Dose: 1 mg Lorazepam (Ativan Inj*) 0 - 3 mg IV PUSH .PER [facility] PROTOCOL [facility]; Protocol Morphine Sulfate (Morphine Inj ((Syringe))*) 2 mg IV Q4H PRN PRN Reason: PAIN - MILD Last Admin: 03/10/18 17:47 Dose: 2 mg Multivitamins/Minerals (Theragran/Minerals Tab*) 1 tab PO DAILY [facility] Last Admin: 03/11/18 07:35 Dose: 1 tab Ondansetron HCl (Zofran Inj*) 4 mg IV Q4H PRN PRN Reason: NAUSEA/VOMITING Oxycodone HCl (Oxycontin(*)) 10 mg PO BID [facility] Last Admin: 03/11/18 07:34 Dose: 10 mg Oxycodone/Acetaminophen (Percocet 5/325 Tab*) 1 tab PO TID PRN PRN Reason: PAIN Last Admin: 03/11/18 07:50 Dose: 1 tab Pantoprazole Sodium (Protonix Iv*) 40 mg IV DAILY [facility] Last Admin: 03/11/18 07:39 Dose: 40 mg Pharmacy Profile Note (Lidocaine Patch Remove*) 1 note N/A 2100 [facility] Last Admin: 03/10/18 21:20 Dose: 1 note Rifaximin (Xifaxan*) 550 mg PO BID [facility] Last Admin: 03/11/18 14:12 Dose: 550 mg Thiamine HCl (Vitamin B-1 Tab*) 100 mg PO BID [facility] Last Admin: 03/11/18 07:35 Dose: 100 mg Vital Signs - 8 hr 03/11/18 03/11/18 03/11/18 07:29 07:34 07:35 Temperature Pulse Rate 97 Respiratory 16 16 16 Rate Blood Pressure 98/64 (mmHg) O2 Sat by Pulse 91 Oximetry 03/11/18 03/11/18 03/11/18 07:50 09:30 10:31 Temperature Pulse Rate 87 Respiratory 16 16 Rate Blood Pressure (mmHg) O2 Sat by Pulse 92 Oximetry 03/11/18 03/11/18 11:25 11:43 Temperature 99.1 F Pulse Rate 85 Respiratory 16 Rate Blood Pressure 86/61 96/62 (mmHg) O2 Sat by Pulse 97 Oximetry Oxygen Devices in Use Now: None Result Diagrams: 03/11/18 05:06 03/10/18 18:44 Microbiology and Other Data: Microbiology 03/09/18 20:59 Stool Occult Blood ([facility]) - Final Stool Assess/Plan/Problems-Billing Assessment: 48 yo F with PMH rectal Ca s/p chemo radiation and surery in 2007, followed by Dr. Harry with elevated tumor markers, EtOH use d/o, peripheral neuropathy, failure to thrive with current BMI 13 who presented s/p mechcnial fall found to have R hip fracture and anemia to 7 s/p 2 U PRBC. Hospital course c/b possibly new metastatic dz] Her RCRI score is 0 and an echo was done in the setting of dypsena with unknown origin and no TTE in the past 12 mos. She has poor functional status, but overall total cardiac risk of major arrythmia or fatal cardiac event is 3.9% . Pt understands these risks and wishes to proceed to OR on 03/11 - Patient Problems (1) Fracture of right hip Current Visit: Yes Status: Acute Code(s): S72.001A - FRACTURE OF UNSP PART OF NECK OF RIGHT FEMUR, INIT SNOMED Code(s): 322548920 Comment: ORIF postponed due to bacteremia. Based on MELD score of 17, 30 day mortality is 25%, 90 day mortality about 40%. Her malnutrition adds to this risk. (2) Alcoholism Current Visit: No Status: Acute Code(s): F10.20 - ALCOHOL DEPENDENCE, UNCOMPLICATED SNOMED Code(s): 0505989 Comment: Thiamine ordered. Rifaximin added due to high ammonia, will repeat 03/12. Lactulose enemas would be advisable if she cannot take po lactulose, but her hip fracture would make enemas more difficult. (3) Alcoholic hepatitis Current Visit: Yes Status: Acute Code(s): K70.10 - ALCOHOLIC HEPATITIS WITHOUT ASCITES SNOMED Code(s): 246227164 Comment: Markedly increases risk of surgery--see above. Repeat labs 03/12. (4) Severe malnutrition Current Visit: Yes Status: Acute Code(s): E43 - UNSPECIFIED SEVERE PROTEIN- CALORIE MALNUTRITION SNOMED Code(s): 78744772 Comment: Note low BMI and markedly low albumin. Not alert enough 03/11 for nutritional supplements. (5) Bacteremia Current Visit: Yes Status: Acute Code(s): R78.81 - BACTEREMIA SNOMED Code( s): 2588188 Comment: MSSA on 1 bottle of 2 sets of bloos C&S so far. Continue cefazolin. Repeat 2 sets blood C&S 03/12.
--- NOTE | 2018-03-11 16:24 | PN ---
Progress Note - Progress Note Date of Service: 03/11/18 Note: Pt unable to have a conversation but said her estranged was coming back but he has not arrived. Left message for him to leave a time convenient to meet let case management and her nurse know.
[2018-03-11] MEDS: NS 0.9% w/ 20 Meq KCL 1000 ML* 1,000 ML IV SCH (17:43)
--- NOTE | 2018-03-11 19:08 | CONSULT ---
Palliative / Hospice Consult Ordering Provider: Atilio Harry - PCP- Piero - Subjective Code Status: Full Code Advance Directives Location: No Advance Directives MOLST Part A Completed: No MOLST Part E Completed:: No - History or Present Illness History or Present Illness: 48 yo female who presented to ER s/p fall with broken R hip. She follows with Dr. Harry because she had rectal cancer stage 3? diagnosed in 2007 treated with chemo, radiation and finally surgery. She has been cancer free although has had an elevated CEA level. She has had chronic pain related to her surgery/cancer and is on oxycontin and percocet. Since then she developed peripheral neuropathy , had a work up with no clear etiology and is followed by Dr. Schwartz and on IV IGg. She had an episode of pancreatitis in 01/14 and was hospitalized overnight. Her other medical problems include malnutrition, B12 def, osteopenia, sm bowel obstruction after her cancer surgery. Over the last month she has been experiencing a general decline, falling more,walking less, decreased appetite and weight loss about 9 kilos in 4 months. Since she was hospitalized she has received 2 units of blood for anemia ? etiology, septic with MSSA in her blood on antibiotics currently, discovered liver disease with ascites on CT abd, increased INR, LFT, ammonia & tbili her MELD score is 17 and malnutrition alb 1.7, t prot 4.5 & prealb 6. She was cleared for surgery via cardiac and pulmonary stand point. The surgery was cancelled because of her +blood culture. Echo 50-55%, CXR pleural effusion and CT brain neg. Lab Values: Abnormal Lab Results 03/10/18 03/10/18 03/11/18 18:44 18:44 00:06 WBC RBC Hgb Hct MCV MCH MCHC RDW Plt Count MPV Neut % (Auto) Lymph % (Auto) [place] % (Auto) Eos % (Auto) Baso % (Auto) Absolute Neuts (auto) Absolute Lymphs (auto) Absolute Monos (auto) Absolute Eos (auto) Absolute Basos (auto) Absolute Nucleated RBC Nucleated RBC % INR (Anticoag Therapy) Sodium 133 L Potassium 3.5 Chloride 97 L Carbon Dioxide 32 Anion Gap 4 BUN 18 Creatinine < 0.30 L Est GFR ( Amer) 286.1 Est GFR (Non-Af Amer) 236.5 BUN/Creatinine Ratio 60.0 H Glucose 105 H Calcium 7.0 L Total Bilirubin 1.30 H Direct Bilirubin 0.60 H Indirect Bilirubin 0.7 AST 88 H ALT 62 H Alkaline Phosphatase 239 H Ammonia Total Protein 4.5 L Albumin 1.7 L Globulin 2.8 Albumin/Globulin Ratio 0.6 L Urine Color [place] Urine Appearance Cloudy Urine pH 5.0 Ur Specific [place] > 1.060 H Urine Protein 1+(30 mg/dl) A Urine Ketones Negative Urine Blood 1+ A Urine Nitrate Positive A Urine Bilirubin Negative Urine Urobilinogen Positive A Ur Leukocyte Esterase 1+ A Urine WBC (Auto) 3+(>20/hpf) A Urine RBC (Auto) 3+(>10/hpf) A Ur Transition Epith Cell Present A Urine Bacteria 3+ A Urine Glucose Negative 03/11/18 03/11/18 03/11/18 05:06 05:06 05:06 WBC 5.1 RBC 2.58 L Hgb 9.0 L Hct 26 L MCV 102 H MCH 35 H MCHC 34 RDW 23 H Plt Count 72 L MPV 7.0 L Neut % (Auto) 68.3 Lymph % (Auto) 23.8 [place] % (Auto) 7.4 Eos % (Auto) 0.1 Baso % (Auto) 0.4 Absolute Neuts (auto) 3.5 Absolute Lymphs (auto) 1.2 Absolute Monos (auto) 0.4 Absolute Eos (auto) 0 Absolute Basos (auto) 0 Absolute Nucleated RBC 0 Nucleated RBC % 0.8 INR (Anticoag Therapy) 1.60 H Sodium Potassium Chloride Carbon Dioxide Anion Gap BUN Creatinine Est GFR ( Amer) Est GFR (Non-Af Amer) BUN/Creatinine Ratio Glucose Calcium Total Bilirubin Direct Bilirubin Indirect Bilirubin AST ALT Alkaline Phosphatase Ammonia 138 H Total Protein Albumin Globulin Albumin/Globulin Ratio Urine Color Urine Appearance Urine pH Ur Specific [place] Urine Protein Urine Ketones Urine Blood Urine Nitrate Urine Bilirubin Urine Urobilinogen Ur Leukocyte Esterase Urine WBC (Auto) Urine RBC (Auto) Ur Transition Epith Cell Urine Bacteria Urine Glucose Laboratory Last Values WBC 5.1 10^3/ul (3.5-10.8) 03/11/18 05:06 RBC 2.58 10^6/ul (4.00-5.40) L 03/11/18 05:06 Hgb 9.0 g/dl (12.0-16.0) L 03/11/18 05:06 Hct 26 % (35-47) L 03/11/18 05:06 MCV 102 fL (80-97) H 03/11/18 05:06 MCH 35 pg (27-31) H 03/11/18 05:06 MCHC 34 g/dl (31-36) 03/11/18 05:06 RDW 23 % (10.5-15) H 03/11/18 05:06 Plt Count 72 10^3/ul (150-450) L 03/11/18 05:06 MPV 7.0 fL (7.4-10.4) L 03/11/18 05:06 Neut % (Auto) 68.3 % 03/11/18 05:06 Lymph % (Auto) 23.8 % 03/11/18 05:06 [place] % (Auto) 7.4 % 03/11/18 05:06 Eos % (Auto) 0.1 % 03/11/18 05:06 Baso % (Auto) 0.4 % 03/11/18 05:06 Absolute Neuts (auto) 3.5 10^3/ul (1.5-7.7) 03/11/18 05:06 Absolute Lymphs (auto) 1.2 10^3/ul (1.0-4.8) 03/11/18 05:06 Absolute Monos (auto) 0.4 10^3/ul (0-0.8) 03/11/18 05:06 Absolute Eos (auto) 0 10^3/ul (0-0.6) 03/11/18 05:06 Absolute Basos (auto) 0 10^3/ul (0-0.2) 03/11/18 05:06 Absolute Nucleated RBC 0 10^3/ul 03/11/18 05:06 Nucleated RBC % 0.8 03/11/18 05:06 Hem Pathologist Commnt 03/10/18 06:04 INR (Anticoag Therapy) 1.60 (0.77-1.02) H 03/11/18 05:06 APTT 33.0 seconds (26.0-36.3) 03/09/18 18:39 Sodium 133 mmol/L (135-145) L 03/10/18 18:44 Potassium 3.5 mmol/L (3.5-5.0) 03/10/18 18:44 Chloride 97 mmol/L (101-111) L 03/10/18 18:44 Carbon Dioxide 32 mmol/L (22-32) 03/10/18 18:44 Anion Gap 4 mmol/L (2-11) 03/10/18 18:44 BUN 18 mg/dL (6-24) 03/10/18 18:44 Creatinine < 0.30 mg/dL (0.51-0.95) L 03/10/18 18:44 Est GFR ( Amer) 286.1 (>60) 03/10/18 18:44 Est GFR (Non-Af Amer) 236.5 (>60) 03/10/18 18:44 BUN/Creatinine Ratio 60.0 (8-20) H 03/10/18 18:44 Glucose 105 mg/dL (70-100) H 03/10/18 18:44 Lactic Acid 1.4 mmol/L (0.5-2.0) 03/09/18 18:39 Calcium 7.0 mg/dL (8.6-10.3) L 03/10/18 18:44 Magnesium 1.5 mg/dL (1.9-2.7) L 03/09/18 18:39 Iron 79 ug/dL (50-212) 03/10/18 06:04 TIBC 105 mcg/dL (250-450) L 03/10/18 06:04 % Saturation 75 % (15-55) H 03/10/18 06:04 Unsat Iron Binding < 90 ug/dL 03/10/18 06:04 Transferrin < 75 mg/dL (203-362) L 03/10/18 06:04 Ferritin 290.7 ng/mL (11-307) 03/10/18 06:04 Total Bilirubin 1.30 mg/dL (0.2-1.0) H 03/10/18 18:44 Direct Bilirubin 0.60 mg/dL (0.03-0.18) H 03/10/18 18:44 Indirect Bilirubin 0.7 mg/dL (0.3-1.0) 03/10/18 18:44 AST 88 U/L (13-39) H 03/10/18 18:44 ALT 62 U/L (7-52) H 03/10/18 18:44 Alkaline Phosphatase 239 U/L (34-104) H 03/10/18 18:44 Ammonia 138 mcmol/L (16-53) H 03/11/18 05:06 Troponin I 0.01 ng/mL (<0.04) 03/09/18 18:39 C-Reactive Protein 92.27 mg/L (<8.01) H 03/09/18 18:39 B-Natriuretic Peptide 316 pg/mL (<=100) H 03/09/18 18:39 Total Protein 4.5 g/dL (6.4-8.9) L 03/10/18 18:44 Albumin 1.7 g/dL (3.2-5.2) L 03/10/18 18:44 Globulin 2.8 g/dL (2-4) 03/10/18 18:44 Albumin/Globulin Ratio 0.6 (1-3) L 03/10/18 18:44 Prealbumin 6 mg/dL (18-38) L 03/09/18 18:39 Lipase 17 U/L (11.0-82.0) 03/09/18 18:39 Vitamin B12 > 1450 pg/mL (180-914) H 03/09/18 18:39 TSH 1.87 mcIU/mL (0.34-5.60) 03/09/18 18:39 Urine Color [place] 03/11/18 00:06 Urine Appearance Cloudy 03/11/18 00:06 Urine pH 5.0 (5-9) 03/11/18 00:06 Ur Specific [place] > 1.060 (1.010-1.030) H 03/11/18 00:06 Urine Protein 1+(30 mg/dl) (Negative) A 03/11/18 00:06 Urine Ketones Negative (Negative) 03/11/18 00:06 Urine Blood 1+ (Negative) A 03/11/18 00:06 Urine Nitrate Positive (Negative) A 03/11/18 00:06 Urine Bilirubin Negative (Negative) 03/11/18 00:06 Urine Urobilinogen Positive (Negative) A 03/11/18 00:06 Ur Leukocyte Esterase 1+ (Negative) A 03/11/18 00:06 Urine WBC (Auto) 3+(>20/hpf) (Absent) A 03/11/18 00:06 Urine RBC (Auto) 3+(>10/hpf) (Absent) A 03/11/18 00:06 Ur Transition Epith Cell Present (Absent) A 03/11/18 00:06 Urine Bacteria 3+ (Absent) A 03/11/18 00:06 Urine Glucose Negative (Negative) 03/11/18 00:06 Serum Alcohol < 10 mg/dL (<10) 03/09/18 18:39 Blood Type B Positive 03/09/18 18:39 Antibody Screen Negative 03/09/18 18:39 Crossmatch See Detail 03/09/18 18:39 - Objective Active Medications: Acetaminophen (Tylenol Tab*) 650 mg PO Q4H PRN PRN Reason: FEVER/PAIN Clotrimazole (Clotrimazole 1%*) 1 applic TOPICAL BID [facility] Last Admin: 03/11/18 08:13 Dose: 1 applic Docusate Sodium (Colace Cap*) 100 mg PO BID PRN PRN Reason: CONSTIPATION Folic Acid (Folvite Tab*) 1 mg PO DAILY [facility] Last Admin: 03/11/18 07:35 Dose: 1 mg Cefazolin Sodium/Dextrose (Kefzol 2 Gm Premix In Ors(*)) 2 gm in 50 mls @ 100 mls/hr IVPB Q8H [facility] Last Admin: 03/11/18 14:10 Dose: 100 mls/hr Potassium Chloride/Sodium Chloride (Ns 0.9% W/ 20 Meq Kcl 1000 Ml*) 1,000 mls @ 75 mls/hr IV PER RATE [facility] Last Admin: 03/11/18 17:43 Dose: 75 mls/hr Lactulose (Lactulose*) 30 ml PO TID [facility] Last Admin: 03/11/18 14:12 Dose: 30 ml Lidocaine (Lidoderm 5% Patch*) 1 patch TRANSDERM DAILY [facility] Last Admin: 03/11/18 08:13 Dose: 1 patch Lorazepam (Ativan Tab(*)) 1 mg PO BID [facility] Last Admin: 03/11/18 07:35 Dose: 1 mg Lorazepam (Ativan Inj*) 0 - 3 mg IV PUSH .PER [place] PROTOCOL [facility]; Protocol Morphine Sulfate (Morphine Inj ((Syringe))*) 2 mg IV Q4H PRN PRN Reason: PAIN - MILD Last Admin: 03/10/18 17:47 Dose: 2 mg Multivitamins/Minerals (Theragran/Minerals Tab*) 1 tab PO DAILY [facility] Last Admin: 03/11/18 07:35 Dose: 1 tab Ondansetron HCl (Zofran Inj*) 4 mg IV Q4H PRN PRN Reason: NAUSEA/VOMITING Oxycodone HCl (Oxycontin(*)) 10 mg PO BID [facility] Last Admin: 03/11/18 07:34 Dose: 10 mg Oxycodone/Acetaminophen (Percocet 5/325 Tab*) 1 tab PO TID PRN PRN Reason: PAIN Last Admin: 03/11/18 18:24 Dose: 1 tab Pantoprazole Sodium (Protonix Iv*) 40 mg IV DAILY [facility] Last Admin: 03/11/18 07:39 Dose: 40 mg Pharmacy Profile Note (Lidocaine Patch Remove*) 1 note N/A 2100 [facility] Last Admin: 03/10/18 21:20 Dose: 1 note Rifaximin (Xifaxan*) 550 mg PO BID [facility] Last Admin: 03/11/18 14:12 Dose: 550 mg Thiamine HCl (Vitamin B-1 Tab*) 100 mg PO BID [facility] Last Admin: 03/11/18 07:35 Dose: 100 mg Vital Signs: Vital Signs: Temp Pulse Resp BP Pulse Ox 99.6 F 91 16 100/65 91 03/11/18 15:28 03/11/18 15:28 03/11/18 18:24 03/11/18 15:28 03/11/18 15:28 Patient Weight: Weight 36.741 kg Intake and Output: Intake & Output 03/09/18 03/10/18 03/11/18 03/12/18 06:59 06:59 06:59 06:59 Intake Total 477 77 2010 Output Total 250 350 100 Balance 419 -270 1233 Weight 36.741 kg Intake: IV Fluids 50 1093 ABX - CEFAZOLIN 50 110 NS (0.9%) 983 Oral 150 30 240 Packed Cells 519 Output: Urine 0 [place] 350 100 Straight Cath 250 Other: Date of Last Bowel 03/11/18 Movement # Bowel Movements 2 2 Estimated Stool Amount Medium Medium ADLs: Meal Record Start: 03/09/18 23: 14 Freq: Status: Active Protocol: Created 03/09/18 23:14 System (Rec: 03/09/18 23:14 System [id number]) Document 03/11/18 10:31 [id number] (Rec: 03/11/18 10:31 [id number] [id number]) Intake and Output Start: 03/09/18 17: 51 Freq: Status: Active Protocol: Created 03/09/18 17:51 System (Rec: 03/09/18 17:51 System [id number]) Document 03/11/18 14:55 [id number] (Rec: 03/11/18 14:56 [id number] [id number]) Intake and Output Start: 03/09/18 23: 14 Freq: DAILY@0600,1400,2200 Status: Active Protocol: Created 03/09/18 23:14 System (Rec: 03/09/18 23:14 System [id number]) Document 03/10/18 01:15 [id number] (Rec: 03/10/18 01:44 [id number] SSU-M13) Document 03/10/18 03:43 [id number] (Rec: 03/10/18 03:43 [id number] SSU-C11) Document 03/10/18 05:59 [id number] (Rec: 03/10/18 05:59 [id number] SSU-M17) Document 03/10/18 06:45 [id number] (Rec: 03/10/18 06:46 [id number] SSU-M13) Document 03/10/18 21:58 [id number] (Rec: 03/10/18 21:58 [id number] SSU-M17) Document 03/11/18 00:18 [id number] (Rec: 03/11/18 00:59 [id number] SSU-C08) Document 03/11/18 05:21 [id number] (Rec: 03/11/18 05:22 [id number] SSU-M17) Document 03/11/18 05:21 [id number] (Rec: 03/11/18 05:21 [id number] RU-M07) Document 03/11/18 10:31 [id number] (Rec: 03/11/18 10:31 [id number] SSU-C09) Document 03/11/18 14:55 [id number] (Rec: 03/11/18 14:56 [id number] SSU-C09) Eyes: No Scleral Icterus Ears/Nose/Mouth/Throat: NL Teeth, Lips, Gums, - - Dry mucous membrane Neck: NL Appearance and Movements; NL JVP, No Thyroid Enlargement, Masses Cardiovascular: NL Sounds; No Murmurs; No JVD, RRR, No Edema, - Abdominal: NL Sounds; No Tenderness; No Distention, No Hepatosplenomegaly, - Extremities: No Edema, No Clubbing, Cyanosis, - Neurological: - - Did not repsond verbally. Briefly opened her eyes to voice. No tremor. Does not follow commands. - Assessment Assessment: 48 yo with R hip fracture and multiple medical problems and general decline - Plan Consult Plan (MU): Other Plan: Spoke with patient and her estranged Aime(HCP) for a long time. They seem to have a good understanding of Radha's medical issues. We discussed the hip surgery if she doesn't get it done she will be bed bound if she does do it she will have a difficult recuperation given her neuropathy and malnutrition. I had iron up DARYL which Aime said he had being thinking about that option too. Pt was sleepy during the interview. I asked her about life prior to coming to the hospital and she replied "life was shit" said she was "tired" & was tearful at times during the conversation. I asked about depression which pt said she has felt depressed, I wonder if trial of SSRI might be helpful? Talked about levels of care but pt didn't respond and Aime said she was a "fighter" during her cancer illness. Talked briefly about DNR/ DNI but neither one was interested and Aime said they had been asked several times in the ER & on the floor. Talked about clinical manager home care stress. KPS 50%,PPS 50% . Gave them both my card to call with questions. Not able to get a complete picture of pts goals for care at this time. Will follow along to see how things evolve. She is having a new pain in her stomach in addition to her old pain. At this time her po intake is very poor. Pt would like to go back home but is okay with D[facility]L after surgery. - Time On Unit Date of Evaluation: 03/11/18 Hospice Consult Time in: 06:00 Hospice Consult Time Out: 07:30 Hospice Consult Time Total: 90
[2018-03-11] MEDS: Morphine INJ* 2 MG/ML 1 ML SYRINGE (TWO MG - NEW SYRINGE VERSION) IV PRN (20:30)
[2018-03-11] MEDS: Lidocaine Patch REMOVE* 1 NOTE MISC SCH (21:43)
[2018-03-12] MEDS: Morphine INJ* 2 MG/ML 1 ML SYRINGE (TWO MG - NEW SYRINGE VERSION) IV PRN ×6 (01:16→22:45)
[2018-03-12] MEDS: ceFAZolin* 2 GM* Q8H (Duplex) IVPB SCH ×3 (05:28→21:42)
[2018-03-12 05:33] LABS: ABS Basophils 0 10^3/ul (0-0.2); ABS Eosinophils 0 10^3/ul (0-0.6); ABS Lymphocytes 1.1 10^3/ul (1.0-4.8); ABS Monocytes 0.6 10^3/ul (0-0.8); ABS Neutrophils 4.5 10^3/ul (1.5-7.7); ABS Nucleated RBC 0.1 10^3/ul; Eosinophil % 0.1 %; Hematocrit 29 % (35-47); Hemoglobin 9.7 g/dl (12.0-16.0); Lymphocyte % 17.5 %; Mean Corpuscular HGB Conc 34 g/dl (31-36); Mean Corpuscular Hemoglobin 35 pg (27-31); Mean Corpuscular Volume 103 fL (80-97); Mean Platelet Volume 7.3 fL (7.4-10.4); Nucleated Red Blood Cells % 1.5; Platelet Count 82 10^3/ul (150-450); Red Blood Count 2.77 10^6/ul (4.00-5.40); Red Cell Distribution Width 24 % (10.5-15); White Blood Count 6.2 10^3/ul (3.5-10.8)
[2018-03-12 05:37] LABS: INR 1.2 (0.77-1.02)
[2018-03-12 05:51] LABS: ALT 36 U/L (7-52); AST 48 U/L (13-39); Albumin 1.5 g/dL (3.2-5.2); Albumin/Globulin Ratio 0.6 (1-3); Alkaline Phosphatase 212 U/L (34-104); Anion Gap 5 mmol/L (2-11); Blood Urea Nitrogen 20 mg/dL (6-24); CO2 Carbon Dioxide 30 mmol/L (22-32); Calcium 7.1 mg/dL (8.6-10.3); Chloride 102 mmol/L (101-111); EGFR African American 286.1 (>60); EGFR Non-African American 236.5 (>60); Globulin 2.5 g/dL (2-4); Glucose 90 mg/dL (70-100); Sodium 137 mmol/L (135-145)
[2018-03-12] MEDS: LORazepam TAB(*) 1 MG PO SCH ×3 (06:12→20:57)
[2018-03-12] MEDS: Pantoprazole IV* 40 MG IV SCH (07:59)
[2018-03-12] MEDS: oxyCODONE SR TAB(*) 10 MG TAB.SR PO SCH ×2 (07:59→20:58)
[2018-03-12] MEDS: Thiamine TAB* 100 MG TAB PO SCH ×2 (07:59→20:58)
[2018-03-12] MEDS: Folic Acid TAB* 1 MG PO SCH (07:59)
[2018-03-12] MEDS: Multivitamins/Minerals TAB PO SCH (07:59)
[2018-03-12] MEDS: RiFAXimin* 550 MG TAB PO SCH ×2 (07:59→20:58)
[2018-03-12] MEDS: Clotrimazole 1% CREAM* 45 GM TOPICAL SCH ×2 (07:59→21:05)
--- NOTE | 2018-03-12 09:28 | PN ---
Progress Note - Progress Note Date of Service: 03/12/18 SOAP: Subjective: [] patient seen at bedside, alert and oriented. Pain managed right hip when resting and not moved. No new orthopedic complaints. Objective: [] Vital Signs Temp 98.1 F 03/12/18 07:21 Pulse 76 03/12/18 07:21 Resp 14 03/12/18 07:59 BP 103/71 03/12/18 07:21 Pulse Ox 92 03/12/18 07:21 Intake & Output 03/11/18 03/12/18 03/12/18 18:59 06:59 18:59 Intake Total 1333 555 Output Total 100 250 Balance 1233 305 Intake: IV Fluids 1093 ABX - CEFAZOLIN 110 NS (0.9%) 983 IVPB 55 ABX - CEFAZOLIN 55 Oral 240 500 Output: Borrero 100 250 Other: Date of Last Bowel 03/12/2018 Movement # Bowel Movements 2 4 Estimated Stool Amount Medium Medium Laboratory Results - last 24 hr 03/12/18 03/12/18 03/12/18 05:09 05:09 05:09 WBC 6.2 RBC 2.77 L Hgb 9.7 L Hct 29 L MCV 103 H MCH 35 H MCHC 34 RDW 24 H Plt Count 82 L MPV 7.3 L Neut % (Auto) 72.5 Lymph % (Auto) 17.5 [place] % (Auto) 9.8 Eos % (Auto) 0.1 Baso % (Auto) 0.1 Absolute Neuts (auto) 4.5 Absolute Lymphs (auto) 1.1 Absolute Monos (auto) 0.6 Absolute Eos (auto) 0 Absolute Basos (auto) 0 Absolute Nucleated RBC 0.1 Nucleated RBC % 1.5 INR (Anticoag Therapy) Sodium 137 Potassium 3.0 L Chloride 102 Carbon Dioxide 30 Anion Gap 5 BUN 20 Creatinine < 0.30 L Est GFR ( Amer) 286.1 Est GFR (Non-Af Amer) 236.5 BUN/Creatinine Ratio 66.0 H Glucose 90 Calcium 7.1 L Total Bilirubin 1.00 AST 48 H ALT 36 Alkaline Phosphatase 212 H Ammonia 128 H Total Protein 4.0 L Albumin 1.5 L Globulin 2.5 Albumin/Globulin Ratio 0.6 L 03/12/18 05:09 WBC RBC Hgb Hct MCV MCH MCHC RDW Plt Count MPV Neut % (Auto) Lymph % (Auto) [place] % (Auto) Eos % (Auto) Baso % (Auto) Absolute Neuts (auto) Absolute Lymphs (auto) Absolute Monos (auto) Absolute Eos (auto) Absolute Basos (auto) Absolute Nucleated RBC Nucleated RBC % INR (Anticoag Therapy) 1.20 H Sodium Potassium Chloride Carbon Dioxide Anion Gap BUN Creatinine Est GFR ( Amer) Est GFR (Non-Af Amer) BUN/Creatinine Ratio Glucose Calcium Total Bilirubin AST ALT Alkaline Phosphatase Ammonia Total Protein Albumin Globulin Albumin/Globulin Ratio Microbiology 03/09/18 18:39 Aerobic Blood Culture - Preliminary Blood Venous No Growth Day 2 Anaerobic Blood Culture - Final Staphylococcus Aureus Blood MRSA/MSSA (PCR) - Final Mrsa Negative S.aureus Positive 03/09/18 18:39 Aerobic Blood Culture - Preliminary Blood Venous No Growth Day 2 Anaerobic Blood Culture - Preliminary No Growth Day 2 03/09/18 20:59 Stool Occult Blood ([facility]) - Final Stool Right LE 2+ pedal pulse shortened, externally rotated calf NT Assessment: []displaced IT fracture right hip Plan: []Bedrest, NWB RLE Await improvement in her sepsis/ medical ok for IM nail right hip, ? Wednesday 03/15
[2018-03-12] MEDS: NS 0.9% w/ 20 Meq KCL 1000 ML* 1,000 ML IV SCH (09:35)
[2018-03-12] MEDS: KCL 10 MEQ/50 ML IVPREMIX* 10 MEQ/50 ML BAG IV SCH ×3 (09:35→18:32)
--- NOTE | 2018-03-12 11:21 | PN ---
Subjective Date of Service: 03/12/18 Interval History: Tearful and complaining of a lot of pain in her legs and hip. Her , daughter, and son are here visiting. She ate some cereal for breakfast, hasn't tried lunch yet. No nausea, shortness of breath, chest pain. Objective Active Medications: Acetaminophen (Tylenol Tab*) 650 mg PO Q4H PRN PRN Reason: FEVER/PAIN Clotrimazole (Clotrimazole 1%*) 1 applic TOPICAL BID [facility] Last Admin: 03/12/18 07:59 Dose: 1 applic Docusate Sodium (Colace Cap*) 100 mg PO BID PRN PRN Reason: CONSTIPATION Folic Acid (Folvite Tab*) 1 mg PO DAILY [facility] Last Admin: 03/12/18 07:59 Dose: 1 mg Cefazolin Sodium/Dextrose (Kefzol 2 Gm Premix In Ors(*)) 2 gm in 50 mls @ 100 mls/hr IVPB Q8H [facility] Last Admin: 03/12/18 05:28 Dose: 100 mls/hr Potassium Chloride/Sodium Chloride (Ns 0.9% W/ 20 Meq Kcl 1000 Ml*) 1,000 mls @ 75 mls/hr IV PER RATE [facility] Last Admin: 03/12/18 09:35 Dose: 75 mls/hr Lactulose (Lactulose*) 30 ml PO TID [facility] Last Admin: 03/12/18 07:59 Dose: 30 ml Lidocaine (Lidoderm 5% Patch*) 1 patch TRANSDERM DAILY [facility] Last Admin: 03/11/18 08:13 Dose: 1 patch Lorazepam (Ativan Tab(*)) 1 mg PO BID [facility] Last Admin: 03/12/18 07:49 Dose: Not Given Lorazepam (Ativan Inj*) 0 - 3 mg IV PUSH .PER [place] PROTOCOL [facility]; Protocol Morphine Sulfate (Morphine Inj ((Syringe))*) 2 mg IV Q4H PRN PRN Reason: PAIN - MILD Last Admin: 03/12/18 09:48 Dose: 2 mg Multivitamins/Minerals (Theragran/Minerals Tab*) 1 tab PO DAILY [facility] Last Admin: 03/12/18 07:59 Dose: 1 tab Ondansetron HCl (Zofran Inj*) 4 mg IV Q4H PRN PRN Reason: NAUSEA/VOMITING Oxycodone HCl (Oxycontin(*)) 10 mg PO BID [facility] Last Admin: 03/12/18 07:59 Dose: 10 mg Oxycodone/Acetaminophen (Percocet 5/325 Tab*) 1 tab PO Q4H PRN PRN Reason: PAIN Pantoprazole Sodium (Protonix Iv*) 40 mg IV DAILY [facility] Last Admin: 03/12/18 07:59 Dose: 40 mg Pharmacy Profile Note (Lidocaine Patch Remove*) 1 note N/A 2100 [facility] Last Admin: 03/11/18 21:43 Dose: 1 note Rifaximin (Xifaxan*) 550 mg PO BID [facility] Last Admin: 03/12/18 07:59 Dose: 550 mg Thiamine HCl (Vitamin B-1 Tab*) 100 mg PO BID [facility] Last Admin: 03/12/18 07:59 Dose: 100 mg Vital Signs - 8 hr 03/12/18 03/12/18 03/12/18 03:32 05:27 05:28 Temperature Pulse Rate 92 Respiratory 16 16 16 Rate Blood Pressure 105/74 (mmHg) O2 Sat by Pulse 90 Oximetry 03/12/18 03/12/18 03/12/18 06:12 07:00 07:21 Temperature 98.1 F Pulse Rate 76 Respiratory 16 14 16 Rate Blood Pressure 103/71 (mmHg) O2 Sat by Pulse 92 Oximetry 03/12/18 03/12/18 03/12/18 07:59 08:00 08:15 Temperature Pulse Rate Respiratory 14 14 14 Rate Blood Pressure (mmHg) O2 Sat by Pulse Oximetry 03/12/18 09:48 Temperature Pulse Rate Respiratory 16 Rate Blood Pressure (mmHg) O2 Sat by Pulse Oximetry Oxygen Devices in Use Now: Nasal Cannula Appearance: alert, frail, ill-appearing Eyes: No Scleral Icterus Ears/Nose/Mouth/Throat: - - dry mucosa Neck: NL Appearance and Movements; NL JVP Respiratory: Symmetrical Chest Expansion and Respiratory Effort, Clear to Auscultation Cardiovascular: NL Sounds; No Murmurs; No JVD, RRR Abdominal: NL Sounds; No Tenderness; No Distention, - - mildly tender to palpation diffusely, worst in the epigastric area Lymphatic: No Cervical Adenopathy Extremities: - - trace edma b/l Skin: - - scattered skin exoriations, healing Neurological: Alert and Oriented x 3, - - sensation reduced b/l legs Result Diagrams: 03/12/18 05:09 03/12/18 05:09 Microbiology and Other Data: Microbiology 03/09/18 20:59 Stool Occult Blood ([facility]) - Final Stool Assess/Plan/Problems-Billing Assessment: 48 yo F with PMH rectal Ca s/p chemo radiation and surgery in 2007, followed by Dr. Harry with elevated tumor markers, EtOH use d/o, peripheral neuropathy, failure to thrive with current BMI 13 who presented s/p mechanical fall found to have R hip fracture and anemia to 7 s/p 2 U PRBC. - Patient Problems (1) Bacteremia Current Visit: Yes Status: Acute Code(s): R78.81 - BACTEREMIA SNOMED Code( s): 9431727 Comment: MSSA on 03/13 bottles 03/09 03/11 cultures negative so far I suspect a skin source Cefazolin day 3 (2) Fracture of right hip Current Visit: Yes Status: Acute Code(s): S72.001A - FRACTURE OF UNSP PART OF NECK OF RIGHT FEMUR, INIT SNOMED Code(s): 594793933 Comment: ORIF postponed due to bacteremia. Certainly elevated risk due to malnutrition and frailty I discussed the many risks of surgery with them and that she is above average risk, but surgery is her chance at mobility, and this is very important to her. She wants to proceed with surgery--> please see Dr. Thomas's formal risk stratification. (3) Elevated liver enzymes Current Visit: Yes Status: Acute Code(s): R74.8 - ABNORMAL LEVELS OF OTHER SERUM ENZYMES SNOMED Code(s): 550611251 Comment: chronic and likely related to etoh/fatty infiltration adding on PT to calculate maddrey discriminant function score, though doubt etoh hepatitis MELD = 8 today (no radiographic evidence of cirrhosis, but no biopsy) (4) Hypokalemia Current Visit: Yes Status: Acute Code(s): E87.6 - HYPOKALEMIA SNOMED Code( s): 03216639 Comment: replete now (5) Anemia Current Visit: Yes Status: Acute Code(s): D64.9 - ANEMIA, UNSPECIFIED SNOMED Code(s): 646613887 Comment: Macrocytic--etoh Iron studies most consistent with chronic inflammation SP 2 U PRBC w appropriate response (6) Severe malnutrition Current Visit: Yes Status: Acute Code(s): E43 - UNSPECIFIED SEVERE PROTEIN- CALORIE MALNUTRITION SNOMED Code(s): 51268856 Comment: Note low BMI and markedly low albumin. Adds to poor prognostic indicators (7) Alcoholism Current Visit: No Status: Acute Code(s): F10.20 - ALCOHOL DEPENDENCE, UNCOMPLICATED SNOMED Code(s): 0644594 Comment: Thiamine ordered. Rifaximin added due to high ammonia, will repeat 03/12. Lactulose enemas would be advisable if she cannot take po lactulose, but her hip fracture would make enemas more difficult. (8) History of rectal cancer Current Visit: No Status: Acute Code(s): Z85.048 - PRSNL HX OF MALIG NEOPLM OF RECTUM, RECTOSIG JUNCT, AND ANUS SNOMED Code(s): 381793082 Comment: evaluated by Dr. Harry on this admission due to concern of recurrence, but no evidence of recurrence per his recommendations (9) Idiopathic progressive neuropathy Current Visit: No Status: Acute Code(s): G60.3 - IDIOPATHIC PROGRESSIVE NEUROPATHY SNOMED Code(s): 037709972 Comment: Thought to be multifactorial and related to chemo, etoh, and autoimmune. On outpatient IVIG with Dr. Schwartz (10) Full code status Current Visit: Yes Status: Acute Code(s): Z78.9 - OTHER SPECIFIED HEALTH STATUS SNOMED Code(s): 326406148
[2018-03-12] MEDS: Lidocaine PATCH 5%* 1 PATCH TRANSDERM SCH (13:34)
[2018-03-12] MEDS: oxyCODONE/Acetamin 5/325 MG* TAB PO PRN (15:54)
[2018-03-12] MEDS: Lidocaine Patch REMOVE* 1 NOTE MISC SCH (21:46)
[2018-03-13] MEDS: oxyCODONE/Acetamin 5/325 MG* TAB PO PRN ×5 (00:27→18:33)
[2018-03-13] MEDS: Morphine INJ* 2 MG/ML 1 ML SYRINGE (TWO MG - NEW SYRINGE VERSION) IV PRN ×3 (03:21→17:15)
[2018-03-13] MEDS: NS 0.9% w/ 20 Meq KCL 1000 ML* 1,000 ML IV SCH ×2 (03:24→18:36)
[2018-03-13] MEDS: ceFAZolin* 2 GM* Q8H (Duplex) IVPB SCH ×3 (05:33→21:19)
[2018-03-13 05:44] LABS: ABS Basophils 0 10^3/ul (0-0.2); ABS Eosinophils 0 10^3/ul (0-0.6); ABS Lymphocytes 1.6 10^3/ul (1.0-4.8); ABS Monocytes 0.6 10^3/ul (0-0.8); ABS Neutrophils 3.9 10^3/ul (1.5-7.7); ABS Nucleated RBC 0.1 10^3/ul; Eosinophil % 0.3 %; Hematocrit 29 % (35-47); Hemoglobin 9.7 g/dl (12.0-16.0); Mean Corpuscular HGB Conc 33 g/dl (31-36); Mean Corpuscular Hemoglobin 34 pg (27-31); Mean Corpuscular Volume 104 fL (80-97); Mean Platelet Volume 7.9 fL (7.4-10.4); Nucleated Red Blood Cells % 1.3; Platelet Count 92 10^3/ul (150-450); Red Blood Count 2.83 10^6/ul (4.00-5.40); Red Cell Distribution Width 23 % (10.5-15); White Blood Count 6.1 10^3/ul (3.5-10.8)
[2018-03-13 05:45] LABS: INR 1.07 (0.77-1.02)
[2018-03-13 05:56] LABS: Anion Gap 2 mmol/L (2-11); Blood Urea Nitrogen 20 mg/dL (6-24); CO2 Carbon Dioxide 31 mmol/L (22-32); Calcium 7.3 mg/dL (8.6-10.3); Chloride 106 mmol/L (101-111); EGFR African American 286.1 (>60); EGFR Non-African American 236.5 (>60); Glucose 94 mg/dL (70-100); Potassium 3.4 mmol/L (3.5-5.0); Sodium 139 mmol/L (135-145)
--- NOTE | 2018-03-13 08:54 | PN ---
Progress Note - Progress Note Date of Service: 03/13/18 SOAP: Subjective: Pt. is alert, complaining of 10/10 R hip pain. Objective: Vital Signs: Temp Pulse Resp BP Pulse Ox 98.3 F 77 16 117/83 96 03/13/18 07:25 03/13/18 07:25 03/13/18 07:25 03/13/18 07:25 03/13/18 07:25 Laboratory Results - last 24 hr 03/12/18 03/13/18 03/13/18 05:09 05:18 05:18 WBC 6.1 RBC 2.83 L Hgb 9.7 L Hct 29 L MCV 104 H MCH 34 H MCHC 33 RDW 23 H Plt Count 92 L MPV 7.9 Neut % (Auto) 63.9 Lymph % (Auto) 26.0 [place] % (Auto) 9.6 Eos % (Auto) 0.3 Baso % (Auto) 0.2 Absolute Neuts (auto) 3.9 Absolute Lymphs (auto) 1.6 Absolute Monos (auto) 0.6 Absolute Eos (auto) 0 Absolute Basos (auto) 0 Absolute Nucleated RBC 0.1 Nucleated RBC % 1.3 INR (Anticoag Therapy) 1.20 H 1.07 H Sodium Potassium Chloride Carbon Dioxide Anion Gap BUN Creatinine Est GFR ( Amer) Est GFR (Non-Af Amer) BUN/Creatinine Ratio Glucose Calcium Ammonia 03/13/18 03/13/18 05:18 05:18 WBC RBC Hgb Hct MCV MCH MCHC RDW Plt Count MPV Neut % (Auto) Lymph % (Auto) [place] % (Auto) Eos % (Auto) Baso % (Auto) Absolute Neuts (auto) Absolute Lymphs (auto) Absolute Monos (auto) Absolute Eos (auto) Absolute Basos (auto) Absolute Nucleated RBC Nucleated RBC % INR (Anticoag Therapy) Sodium 139 Potassium 3.4 L Chloride 106 Carbon Dioxide 31 Anion Gap 2 BUN 20 Creatinine < 0.30 L Est GFR ( Amer) 286.1 Est GFR (Non-Af Amer) 236.5 BUN/Creatinine Ratio 66.0 H Glucose 94 Calcium 7.3 L Ammonia 100 H RUE - removable splint on r wrist fx - nvi. RLE - skin with no erythema, small superficial abrasions, externally rotated leg , thigh swollen and ttp, distally nvi with 2+ dp pulse. Assessment: 48 yo F with failure to thrive, alcoholism, peripheral neuropathy, rectal cancer history. She has multiple falls and has R IT proximal femur fx. Surgery delayed due to bacteremia Plan: D/w patient - she is alert and oriented x 3 - she wishes to proceed with surgery for pain control and the ability to ambulate independently. D/w hospitalist group - they will eval and call me with possible clearance/ medical optimization status. My rec is ORIF 03/14/18 in AM - this patient does not benefit by bedrest any longer. If medically optimized we will proceed, all acknowledging the high risk of delayed healing/infection/etc.
[2018-03-13] MEDS: Folic Acid TAB* 1 MG PO SCH (09:58)
[2018-03-13] MEDS: LORazepam TAB(*) 1 MG PO SCH ×2 (09:58→21:16)
[2018-03-13] MEDS: Thiamine TAB* 100 MG TAB PO SCH ×2 (09:59→21:18)
[2018-03-13] MEDS: oxyCODONE SR TAB(*) 10 MG TAB.SR PO SCH ×2 (09:59→21:17)
[2018-03-13] MEDS: RiFAXimin* 550 MG TAB PO SCH ×2 (10:00→21:18)
[2018-03-13] MEDS: Multivitamins/Minerals TAB PO SCH (10:01)
[2018-03-13] MEDS: Pantoprazole IV* 40 MG IV SCH (10:03)
[2018-03-13] MEDS: Lidocaine PATCH 5%* 1 PATCH TRANSDERM SCH (10:06)
[2018-03-13] MEDS: Clotrimazole 1% CREAM* 45 GM TOPICAL SCH ×2 (10:21→21:18)
[2018-03-13] MEDS ORDERED: Magnesium Sulfate 1 GM IV* 1 GM/100 ML BAG IV ONE (16:32)
[2018-03-13] MEDS ORDERED: Potassium Chlor TAB* 20 MEQ TAB.ER PO ONE (16:33)
--- NOTE | 2018-03-13 16:57 | PN ---
Subjective Date of Service: 03/13/18 Interval History: Awake alert and conversational with a ammonia level of 100. c/o of severe hip pain.Clearly states that she wants the surgery so she can walk and understands the risks.Had a detailed discussion with pt's family as well Objective Active Medications: Acetaminophen (Tylenol Tab*) 650 mg PO Q4H PRN PRN Reason: FEVER/PAIN Clotrimazole (Clotrimazole 1%*) 1 applic TOPICAL BID [facility] Last Admin: 03/13/18 10:21 Dose: 1 applic Docusate Sodium (Colace Cap*) 100 mg PO BID PRN PRN Reason: CONSTIPATION Folic Acid (Folvite Tab*) 1 mg PO DAILY [facility] Last Admin: 03/13/18 09:58 Dose: 1 mg Cefazolin Sodium/Dextrose (Kefzol 2 Gm Premix In Ors(*)) 2 gm in 50 mls @ 100 mls/hr IVPB Q8H [facility] Last Admin: 03/13/18 12:54 Dose: 100 mls/hr Potassium Chloride/Sodium Chloride (Ns 0.9% W/ 20 Meq Kcl 1000 Ml*) 1,000 mls @ 75 mls/hr IV PER RATE [facility] Last Admin: 03/13/18 03:24 Dose: 75 mls/hr Magnesium Sulfate/Dextrose (Magnesium Sulfate 1 Gm Iv*) 1 gm in 100 mls @ 200 mls/hr IV ONCE ONE Stop: 03/13/18 17:01 Lactulose (Lactulose*) 30 ml PO TID [facility] Last Admin: 03/13/18 14:15 Dose: 30 ml Lidocaine (Lidoderm 5% Patch*) 1 patch TRANSDERM DAILY [facility] Last Admin: 03/13/18 10:06 Dose: 1 patch Lorazepam (Ativan Tab(*)) 1 mg PO BID [facility] Last Admin: 03/13/18 09:58 Dose: 1 mg Morphine Sulfate (Morphine Inj ((Syringe))*) 4 mg IV Q4H PRN PRN Reason: PAIN - MILD Last Admin: 03/12/18 22:45 Dose: 4 mg Morphine Sulfate (Morphine Inj ((Syringe))*) 2 mg IV Q4H PRN PRN Reason: PAIN Last Admin: 03/13/18 12:52 Dose: 2 mg Multivitamins/Minerals (Theragran/Minerals Tab*) 1 tab PO DAILY [facility] Last Admin: 03/13/18 10:01 Dose: 1 tab Ondansetron HCl (Zofran Inj*) 4 mg IV Q4H PRN PRN Reason: NAUSEA/VOMITING Oxycodone HCl (Oxycontin(*)) 10 mg PO BID [facility] Last Admin: 03/13/18 09:59 Dose: 10 mg Oxycodone/Acetaminophen (Percocet 5/325 Tab*) 1 tab PO Q4H PRN PRN Reason: PAIN Last Admin: 03/13/18 14:14 Dose: 1 tab Pantoprazole Sodium (Protonix Iv*) 40 mg IV DAILY [facility] Last Admin: 03/13/18 10:03 Dose: 40 mg Pharmacy Profile Note (Lidocaine Patch Remove*) 1 note N/A 2100 [facility] Last Admin: 03/12/18 21:46 Dose: 1 note Potassium Chloride (Klor Con Er Tab*) 40 meq PO ONCE ONE Stop: 03/13/18 16:34 Rifaximin (Xifaxan*) 550 mg PO BID [facility] Last Admin: 03/13/18 10:00 Dose: 550 mg Thiamine HCl (Vitamin B-1 Tab*) 100 mg PO BID [facility] Last Admin: 03/13/18 09:59 Dose: 100 mg Zinc Sulfate (Zinc-220 Cap*) 220 mg PO DAILY [facility] Vital Signs - 8 hr 03/13/18 03/13/18 03/13/18 09:00 09:58 09:59 Temperature Pulse Rate Respiratory 18 16 16 Rate Blood Pressure (mmHg) O2 Sat by Pulse Oximetry 03/13/18 03/13/18 03/13/18 11:26 12:13 12:52 Temperature 98.5 F Pulse Rate 77 Respiratory 16 16 16 Rate Blood Pressure 124/81 (mmHg) O2 Sat by Pulse 92 Oximetry 03/13/18 03/13/18 03/13/18 14:14 15:42 16:16 Temperature 97.7 F Pulse Rate 79 Respiratory 16 18 16 Rate Blood Pressure 122/82 (mmHg) O2 Sat by Pulse 93 Oximetry Oxygen Devices in Use Now: None Eyes: No Scleral Icterus Neck: NL Appearance and Movements; NL JVP Respiratory: Symmetrical Chest Expansion and Respiratory Effort, Clear to Auscultation Cardiovascular: NL Sounds; No Murmurs; No JVD, RRR Abdominal: - - some pain on palpation and flatulence Neurological: Alert and Oriented x 3 Result Diagrams: 03/13/18 05:18 03/13/18 05:18 Microbiology and Other Data: Microbiology 03/09/18 20:59 Stool Occult Blood ([facility]) - Final Stool Assess/Plan/Problems-Billing Assessment: 48 yo F with PMH rectal Ca s/p chemo radiation and surgery in 2007, followed by Dr. Harry with elevated tumor markers, EtOH use d/o, peripheral neuropathy, failure to thrive with current BMI 13 who presented s/p mechanical fall found to have R hip fracture and anemia to 7 s/p 2 U PRBC. - Patient Problems (1) Fracture of right hip Current Visit: Yes Status: Acute Code(s): S72.001A - FRACTURE OF UNSP PART OF NECK OF RIGHT FEMUR, INIT SNOMED Code(s): 748586313 Comment: Plan for surgery with Dr Lopez in am -Pt has no significant cardiac or pulmonary problems. Please evaluate Dr Thomas's preop assessment from 03/10/18 for full details.However pt is high risk for bleeding,blood clots,poor wound healing and infection post op due to problems with her liver,chronic malnutrition,peripheral neuropathy and dec mobility in the setting of prior rectal cancer and alcoholism.inr was 1.8 on admission currently 1.07, ammonia 100 prev 138 but completely awake( possibly chronic) in the setting of alcoholism and liver disorder, possible zinc/micronutrient def in the setting of malnutrition. Blood cultures with MSSA 03/09 however repeated twice on 03/11 and 03/12 both noted to be neg.On Cefazolin.Pt does not want palliative care and is chronically deconditioned but is as good as she is possibly going to get.And not having the surgery would only worsen her current condition and her only chance at improved mobility.All this discussed in detail with the family.And pt and family understand the risks and want to go ahead.Discussed with Dr Lopez as well and appreciate her support and plan to take the pt to surgery tomorrow evaluating risk versus benefit.No current cardiac/pulmonary issues as mentioned and refer to Dr Thomas's formal preop eval for full details. (2) Bacteremia Current Visit: Yes Status: Acute Code(s): R78.81 - BACTEREMIA SNOMED Code( s): 7234833 Comment: MSSA on 03/13 bottles 03/09 03/11 cultures negative so far 03/12 cultures neg Continue Cefazolin (3) Anemia Current Visit: Yes Status: Acute Code(s): D64.9 - ANEMIA, UNSPECIFIED SNOMED Code(s): 739603233 Comment: Macrocytic--etoh Iron studies most consistent with chronic inflammation SP 2 U PRBC w appropriate response (4) Elevated liver enzymes Current Visit: Yes Status: Acute Code(s): R74.8 - ABNORMAL LEVELS OF OTHER SERUM ENZYMES SNOMED Code(s): 596536430 Comment: chronic and likely related to etoh/fatty infiltration INR improved Will recheck in am (5) Failure to thrive Current Visit: Yes Status: Acute Code(s): XTN1517 - SNOMED Code(s): 48672358 Comment: Multifactorial, onc and etoh use d/o -Does not want comfort care.Wants surgery and all medical care (6) Hypokalemia Current Visit: Yes Status: Acute Code(s): E87.6 - HYPOKALEMIA SNOMED Code( s): 48140985 Comment: Will replete Can exacerbate hepatic encephalopathy and confusion Will replete K today and replace Mg (7) Severe malnutrition Current Visit: Yes Status: Acute Code(s): E43 - UNSPECIFIED SEVERE PROTEIN- CALORIE MALNUTRITION SNOMED Code(s): 12297152 Comment: Note low BMI and markedly low albumin. Albumin 1.7 prealbumin low Adds to poor prognostic indicators (8) Alcoholism Current Visit: No Status: Acute Code(s): F10.20 - ALCOHOL DEPENDENCE, UNCOMPLICATED SNOMED Code(s): 6696479 Comment: Thiamine ordered. Rifaximin added due to high ammonia, Continue lactulose Improving hyperammonemia Multifactorial: Most likely hepatic encephalopathy.Also poss micronutrient zinc def in setting of malnutrition( will check and replace zinc) .less likely urea cycle disorder. will monitor nh3 closely in perioperative period (9) History of rectal cancer Current Visit: No Status: Acute Code(s): Z85.048 - PRSNL HX OF MALIG NEOPLM OF RECTUM, RECTOSIG JUNCT, AND ANUS SNOMED Code(s): 492179879 Comment: evaluated by Dr. Harry on this admission due to concern of recurrence,?lesion in pancreas on u/s however not seen on CT.Eval by Dr Harry and see his note for full details.He does not think there is enough evidence of recurrence or malignancy (10) Idiopathic progressive neuropathy Current Visit: No Status: Acute Code(s): G60.3 - IDIOPATHIC PROGRESSIVE NEUROPATHY SNOMED Code(s): 596623590 Comment: Thought to be multifactorial and related to chemo, etoh, and autoimmune. On outpatient IVIG with Dr. Schwartz (11) Full code status Current Visit: Yes Status: Acute Code(s): Z78.9 - OTHER SPECIFIED HEALTH STATUS SNOMED Code(s): 844095361
[2018-03-13] MEDS: Zinc Sulfate CAP* 220 MG PO SCH (17:19)
[2018-03-13] MEDS: Ondansetron INJ* 2 MG/ML VIAL IV PRN (18:33)
[2018-03-13] MEDS ORDERED: Buffered Lidocaine 1% SYRIN* 1 ML/SYRINGE INTRADERM ONE (21:18)
[2018-03-13] MEDS ORDERED: Famotidine IV* 10 MG/ML 2 ML (20 mg) IV ONE (21:18)
[2018-03-13] MEDS: Lidocaine Patch REMOVE* 1 NOTE MISC SCH (21:19)
[2018-03-14] MEDS: Morphine INJ* 2 MG/ML 1 ML SYRINGE (TWO MG - NEW SYRINGE VERSION) IV PRN ×4 (02:31→22:31)
[2018-03-14 05:01] LABS: ABS Basophils 0 10^3/ul (0-0.2); ABS Eosinophils 0 10^3/ul (0-0.6); ABS Lymphocytes 1.2 10^3/ul (1.0-4.8); ABS Monocytes 0.7 10^3/ul (0-0.8); ABS Neutrophils 7.1 10^3/ul (1.5-7.7); ABS Nucleated RBC 0 10^3/ul; Eosinophil % 0.1 %; Hematocrit 30 % (35-47); Hemoglobin 9.8 g/dl (12.0-16.0); Mean Corpuscular HGB Conc 32 g/dl (31-36); Mean Corpuscular Hemoglobin 34 pg (27-31); Mean Corpuscular Volume 105 fL (80-97); Mean Platelet Volume 8.3 fL (7.4-10.4); Nucleated Red Blood Cells % 0.5; Platelet Count 121 10^3/ul (150-450); Red Cell Distribution Width 24 % (10.5-15)
[2018-03-14 05:04] LABS: INR 1.07 (0.77-1.02)
[2018-03-14 05:07] LABS: Anion Gap 3 mmol/L (2-11); Blood Urea Nitrogen 18 mg/dL (6-24); CO2 Carbon Dioxide 26 mmol/L (22-32); Calcium 7.2 mg/dL (8.6-10.3); Chloride 110 mmol/L (101-111); EGFR African American 286.1 (>60); EGFR Non-African American 236.5 (>60); Glucose 95 mg/dL (70-100); Potassium 3.9 mmol/L (3.5-5.0); Sodium 139 mmol/L (135-145)
[2018-03-14] MEDS: ceFAZolin* 2 GM* Q8H (Duplex) IVPB SCH ×3 (05:53→21:28)
[2018-03-14] MEDS: Lactated Ringers 1000 ML Bag* 1,000 ML IV SCH (06:28)
[2018-03-14] MEDS ORDERED: Albumin Human 25%* 12.5 GM/50 ML BTL IV ONE (07:00)
[2018-03-14] MEDS ORDERED: Midazolam* 1 MG/ML 2 ML VIAL (2 MG) ONE (07:33)
[2018-03-14] MEDS ORDERED: fentaNYL* 50 MCG/ML 2 ML VIAL (100 MCG VIAL) ONE ×2 (07:33→08:49)
[2018-03-14] MEDS ORDERED: Famotidine IV* 10 MG/ML 2 ML (20 mg) ONE (08:09)
[2018-03-14] MEDS ORDERED: Dexamethasone IV* 4 MG/ML 1 ML (4 MG) ONE (08:16)
[2018-03-14] MEDS ORDERED: Succinylcholine* 20 MG/ML 10 ML VIAL ONE (08:16)
[2018-03-14] MEDS ORDERED: Propofol* 10 MG/ML 20 ML BTL ONE (08:16)
[2018-03-14] MEDS ORDERED: Cisatracurium* 2 MG/ML MDV 5 ML ONE (08:17)
[2018-03-14] MEDS ORDERED: Phenylephrine IV* 40 MCG/ML 10 ML SYRINGE ONE (09:01)
[2018-03-14] MEDS ORDERED: Bupivacaine 0.5% W/EPI SDV* 30 ML VIAL ONE (09:12)
[2018-03-14] MEDS ORDERED: Metoprolol Tartrate IV* 1 MG/ML 5 ML VIAL ONE (09:18)
[2018-03-14] MEDS ORDERED: diPHENhydraMINE IV* 50 MG/ML 1 ml VIAL (BENADRYL) IV PRN (09:34)
[2018-03-14] MEDS ORDERED: Naloxone* 0.4 MG/ML 1 ML VIAL IV PRN (09:34)
[2018-03-14] MEDS ORDERED: DiMENhydriNATE IV* 50 MG/ML VIAL IV PUSH PRN (09:34)
[2018-03-14] MEDS ORDERED: fentaNYL* 50 MCG/ML 5 ML VIAL (250 MCG VIAL) ONE (11:06)
[2018-03-14] MEDS: fentaNYL* 50 MCG/ML 2 ML VIAL (100 MCG VIAL) IV PRN ×3 (11:09→11:35)
--- NOTE | 2018-03-14 12:16 | PN ---
Subjective Date of Service: 03/14/18 Interval History: OR today with Dr Lopez Objective Active Medications: Acetaminophen (Tylenol Tab*) 650 mg PO Q4H PRN PRN Reason: FEVER/PAIN Clotrimazole (Clotrimazole 1%*) 1 applic TOPICAL BID [facility] Last Admin: 03/13/18 21:18 Dose: 1 applic Dimenhydrinate (Dramamine Iv*) 12.5 mg IV PUSH ONCE PRN PRN Reason: NAUSEA/VOMITING Diphenhydramine HCl (Benadryl Iv*) 12.5 mg IV ONCE PRN PRN Reason: ITCHING Docusate Sodium (Colace Cap*) 100 mg PO BID PRN PRN Reason: CONSTIPATION Fentanyl Citrate (Fentanyl*) 50 mcg IV Q5M PRN PRN Reason: PAIN - MODERATE Last Admin: 03/14/18 11:35 Dose: 50 mcg Folic Acid (Folvite Tab*) 1 mg PO DAILY [facility] Last Admin: 03/13/18 09:58 Dose: 1 mg Cefazolin Sodium/Dextrose (Kefzol 2 Gm Premix In Ors(*)) 2 gm in 50 mls @ 100 mls/hr IVPB Q8H [facility] Last Admin: 03/14/18 05:53 Dose: 100 mls/hr Potassium Chloride/Sodium Chloride (Ns 0.9% W/ 20 Meq Kcl 1000 Ml*) 1,000 mls @ 75 mls/hr IV PER RATE [facility] Last Admin: 03/13/18 18:36 Dose: 75 mls/hr Lactated Ringer's (Lactated Ringers 1000 Ml Bag*) 1,000 mls @ 50 mls/hr IV PER RATE [facility] Last Admin: 03/14/18 06:28 Dose: 50 mls/hr Lactulose (Lactulose*) 30 ml PO TID [facility] Last Admin: 03/13/18 21:17 Dose: 30 ml Lidocaine (Lidoderm 5% Patch*) 1 patch TRANSDERM DAILY [facility] Last Admin: 03/13/18 10:06 Dose: 1 patch Lorazepam (Ativan Tab(*)) 1 mg PO BID [facility] Last Admin: 03/13/18 21:16 Dose: 1 mg Morphine Sulfate (Morphine Inj ((Syringe))*) 4 mg IV Q4H PRN PRN Reason: PAIN - MILD Last Admin: 03/14/18 02:31 Dose: 4 mg Morphine Sulfate (Morphine Inj ((Syringe))*) 2 mg IV Q4H PRN PRN Reason: PAIN Last Admin: 03/14/18 06:28 Dose: 2 mg Multivitamins/Minerals (Theragran/Minerals Tab*) 1 tab PO DAILY [facility] Last Admin: 03/13/18 10:01 Dose: 1 tab Naloxone HCl (Narcan*) 0.08 mg IV Q2M PRN PRN Reason: severe induced resp depression Ondansetron HCl (Zofran Inj*) 4 mg IV Q4H PRN PRN Reason: NAUSEA/VOMITING Last Admin: 03/13/18 18:33 Dose: 4 mg Oxycodone HCl (Oxycontin(*)) 10 mg PO BID [facility] Last Admin: 03/13/18 21:17 Dose: 10 mg Oxycodone/Acetaminophen (Percocet 5/325 Tab*) 1 tab PO Q4H PRN PRN Reason: PAIN Last Admin: 03/14/18 00:00 Dose: 1 tab Pantoprazole Sodium (Protonix Iv*) 40 mg IV DAILY [facility] Last Admin: 03/13/18 10:03 Dose: 40 mg Pharmacy Profile Note (Lidocaine Patch Remove*) 1 note N/A 2100 [facility] Last Admin: 03/13/18 21:19 Dose: 1 note Rifaximin (Xifaxan*) 550 mg PO BID [facility] Last Admin: 03/13/18 21:18 Dose: 550 mg Thiamine HCl (Vitamin B-1 Tab*) 100 mg PO BID [facility] Last Admin: 03/13/18 21:18 Dose: 100 mg Zinc Sulfate (Zinc-220 Cap*) 220 mg PO DAILY [facility] Last Admin: 03/13/18 17:19 Dose: 220 mg Vital Signs - 8 hr 03/14/18 03/14/18 03/14/18 04:58 06:28 06:43 Temperature 98.8 F Pulse Rate 95 Respiratory 18 19 17 Rate Blood Pressure 129/86 (mmHg) O2 Sat by Pulse 94 Oximetry 03/14/18 03/14/18 03/14/18 06:44 10:52 10:55 Temperature 97.9 F Pulse Rate 98 100 Respiratory 18 20 Rate Blood Pressure 117/88 117/88 (mmHg) O2 Sat by Pulse 93 90 Oximetry 03/14/18 03/14/18 03/14/18 10:58 11:00 11:01 Temperature Pulse Rate 101 99 100 Respiratory 18 Rate Blood Pressure 122/80 (mmHg) O2 Sat by Pulse 85 91 90 Oximetry 03/14/18 03/14/18 03/14/18 11:05 11:09 11:11 Temperature Pulse Rate 103 104 Respiratory 29 18 29 Rate Blood Pressure 118/101 138/90 (mmHg) O2 Sat by Pulse 89 83 Oximetry 03/14/18 03/14/18 03/14/18 11:15 11:24 11:30 Temperature Pulse Rate 98 90 Respiratory 21 16 18 Rate Blood Pressure 123/92 127/90 (mmHg) O2 Sat by Pulse 93 95 Oximetry 03/14/18 03/14/18 11:35 11:45 Temperature Pulse Rate 80 Respiratory 18 15 Rate Blood Pressure 136/94 (mmHg) O2 Sat by Pulse 95 Oximetry Oxygen Devices in Use Now: Nasal Cannula Eyes: No Scleral Icterus Neck: NL Appearance and Movements; NL JVP Respiratory: Symmetrical Chest Expansion and Respiratory Effort, Clear to Auscultation Cardiovascular: NL Sounds; No Murmurs; No JVD, RRR Abdominal: - - some pain on palpation no rebound no guarding Extremities: - - 2+ Edema bilaterally Neurological: Alert and Oriented x 3 Result Diagrams: 03/14/18 04:42 03/14/18 04:42 Microbiology and Other Data: Microbiology 03/09/18 20:59 Stool Occult Blood ([facility]) - Final Stool Assess/Plan/Problems-Billing Assessment: 48 yo F with PMH rectal Ca s/p chemo radiation and surgery in 2007, followed by Dr. Harry with elevated tumor markers, EtOH use d/o, peripheral neuropathy, failure to thrive with current BMI 13 who presented s/p mechanical fall found to have R hip fracture and anemia to 7 s/p 2 U PRBC. - Patient Problems (1) Fracture of right hip Current Visit: Yes Status: Acute Code(s): S72.001A - FRACTURE OF UNSP PART OF NECK OF RIGHT FEMUR, INIT SNOMED Code(s): 388768732 Comment: -OR with Dr Lopez today -Pt has no significant cardiac or pulmonary problems. Please evaluate Dr Thomas's preop assessment from 03/10/18 for full details.However pt is high risk for bleeding,blood clots,poor wound healing and infection post op due to problems with her liver,chronic malnutrition,peripheral neuropathy and dec mobility in the setting of prior rectal cancer and alcoholism.inr was 1.8 on admission currently 1.07, ammonia 92 prev 138 but completely awake( possibly chronic) in the setting of alcoholism and liver disorder, possible zinc/micronutrient def in the setting of malnutrition. Blood cultures with MSSA 03/09 however repeated twice on 03/11 and 03/12 both noted to be neg.On Cefazolin.Pt does not want palliative care and is chronically deconditioned but is as good as she is possibly going to get.And not having the surgery would only worsen her current condition and her only chance at improved mobility.All this discussed in detail with the family.And pt and family understand the risks and want to go ahead.Discussed with Dr Lopez as well and appreciate her support and plan to take the pt to surgery evaluating risk versus benefit.No current cardiac/ pulmonary issues as mentioned and refer to Dr Thomas's formal preop eval for full details. (2) Bacteremia Current Visit: Yes Status: Acute Code(s): R78.81 - BACTEREMIA SNOMED Code( s): 4532146 Comment: MSSA on 03/13 bottles 03/09 03/11 cultures negative so far 03/12 cultures neg Continue Cefazolin (3) Anemia Current Visit: Yes Status: Acute Code(s): D64.9 - ANEMIA, UNSPECIFIED SNOMED Code(s): 658669502 Comment: Macrocytic--etoh Iron studies most consistent with chronic inflammation SP 2 U PRBC w appropriate response (4) Elevated liver enzymes Current Visit: Yes Status: Acute Code(s): R74.8 - ABNORMAL LEVELS OF OTHER SERUM ENZYMES SNOMED Code(s): 812967383 Comment: chronic and likely related to etoh/fatty infiltration INR improved (5) Failure to thrive Current Visit: Yes Status: Acute Code(s): ZHJ8652 - SNOMED Code(s): 41633458 Comment: Multifactorial, onc and etoh use d/o -Does not want comfort care.Wants surgery and all medical care (6) Hypokalemia Current Visit: Yes Status: Acute Code(s): E87.6 - HYPOKALEMIA SNOMED Code( s): 41449999 Comment: Will replete Can exacerbate hepatic encephalopathy and confusion Repleted (7) Severe malnutrition Current Visit: Yes Status: Acute Code(s): E43 - UNSPECIFIED SEVERE PROTEIN- CALORIE MALNUTRITION SNOMED Code(s): 89528565 Comment: Note low BMI and markedly low albumin. Albumin 1.7 prealbumin low Adds to poor prognostic indicators (8) Alcoholism Current Visit: No Status: Acute Code(s): F10.20 - ALCOHOL DEPENDENCE, UNCOMPLICATED SNOMED Code(s): 2961116 Comment: Thiamine ordered. Rifaximin added due to high ammonia, Continue lactulose Improving hyperammonemia Multifactorial: Most likely hepatic encephalopathy.Also poss micronutrient zinc def in setting of malnutrition( will check and replace zinc) .less likely urea cycle disorder. will monitor nh3 closely in perioperative period (9) History of rectal cancer Current Visit: No Status: Acute Code(s): Z85.048 - PRSNL HX OF MALIG NEOPLM OF RECTUM, RECTOSIG JUNCT, AND ANUS SNOMED Code(s): 423578711 Comment: evaluated by Dr. 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 On outpatient IVIG with Dr. Schwartz (11) Full code status Current Visit: Yes Status: Acute Code(s): Z78.9 - OTHER SPECIFIED HEALTH STATUS SNOMED Code(s): 904438330
[2018-03-14] MEDS: oxyCODONE SR TAB(*) 10 MG TAB.SR PO SCH ×2 (12:40→21:33)
[2018-03-14] MEDS: Pantoprazole IV* 40 MG IV SCH (12:40)
[2018-03-14] MEDS: LORazepam TAB(*) 1 MG PO SCH ×2 (12:42→21:34)
[2018-03-14] MEDS: Lidocaine PATCH 5%* 1 PATCH TRANSDERM SCH (12:48)
[2018-03-14] MEDS: Clotrimazole 1% CREAM* 45 GM TOPICAL SCH ×2 (13:00→21:28)
[2018-03-14] MEDS: Folic Acid TAB* 1 MG PO SCH (13:00)
[2018-03-14] MEDS: Multivitamins/Minerals TAB PO SCH (14:05)
[2018-03-14] MEDS: Thiamine TAB* 100 MG TAB PO SCH ×2 (14:07→21:24)
[2018-03-14] MEDS: Zinc Sulfate CAP* 220 MG PO SCH (14:07)
[2018-03-14] MEDS: RiFAXimin* 550 MG TAB PO SCH ×2 (14:07→21:24)
[2018-03-14] MEDS: oxyCODONE/Acetamin 5/325 MG* TAB PO PRN ×2 (17:26)
[2018-03-14] MEDS: Lidocaine Patch REMOVE* 1 NOTE MISC SCH (22:21)
--- NOTE | 2018-03-14 23:06 | OP ---
DATE OF OPERATION: 03/14/18 - ROOM #331 DATE OF : 68 ATTENDING SURGEON: Vita Lopez MD. BROILER CHEF OR COOK: SANDRA Flores. Mr. Esquivel did help throughout the procedure with preparation of the leg, wound retraction, manipulation of the instruments and fracture, and wound closure. ANESTHESIOLOGIST: Dr. Johns. ANESTHESIA: General. PRE-OP DIAGNOSIS: Closed comminuted displaced right intratrochanteric hip fracture. POST-OP DIAGNOSIS: Closed comminuted displaced right intratrochanteric hip fracture. OPERATIVE PROCEDURE: Open reduction and internal fixation of right intratrochanteric hip fracture with a cephalomedullary device. ESTIMATED BLOOD LOSS: 350. COMPLICATIONS: None. SPECIMEN: Multiple collections of bone reaming from the right femur were sent to Pathology due to the patient's history of rectal cancer. HARDWARE USED: This is a [place] long Gamma nail for the right side. The nail was 11 x 340 x 125. Lag screw proximally was 90 mm 10.5 lag screw. Distal locking screw was a 5 x 42.5 mm locking screw. BRIEF HISTORY/INDICATIONS: Ms. Valdez is a 48-year-old female with multiple medical comorbidities, eventually failure to thrive, chronic liver disease, and history of rectal cancer. She fell in her home and was brought to [facility] on 03/09/18. She was diagnosed with a comminuted displaced right intratrochanteric femur fracture. She had preoperative admission to the hospitalist team and optimization. A surgery was done initially because of a single vial of blood that did grow Staph aureus. She was treated with antibiotics. Multiple subsequent blood cultures were negative. By hospital day #4, the patient was stable and optimized for surgery. The medical team felt that we should proceed with operative fixation. The patient declined palliative care and very much wished to have the procedure despite high risk. The patient and her family and I discussed the risks of surgery. She understood the risks included, but were not limited to bleeding, infection, damage nearby structures, continued pain, need for further surgery, failure of the bone to heal, failure of the wound to heal, loss of reduction, failure of the hardware, anesthesia complications, stroke, heart attack, blood clot, and . She wished to proceed. INTRAOPERATIVE FINDINGS: Intraoperatively, the patient was noted to have extensive comminution of the entire greater trochanter. Osteopenia was noted throughout the case. DESCRIPTION OF PROCEDURE: Ms. Valdez was identified in the preanesthesia unit. Her right lower extremity was marked as the correct operative side. Informed consent was signed and placed in the chart. The patient was taken to the operating room and placed under general anesthesia. She already had a Borrero catheter. The patient was placed on the fracture table. The right lower extremity was placed in the traction boot and a small amount of traction was applied. Left lower extremity was placed in the lithotomy position with adequate padding. A reduction maneuver was performed and the leg was adducted and internally rotated. Multiple C-arm images confirmed satisfactory reduction of the fracture. The right lower extremity was prepped and dapped in usual sterile fashion. Preop time-out was made to correctly identify the patient's side and site. Appropriate perioperative antibiotics were given within 1 hour of incision. A 4 cm skin incision was made proximal to the tip of the greater trochanter. The patient was noted to have very thin blood, which was mostly edema and serosanguineous drainage. Electrocautery was used to dissect down to the tip of the greater trochanter through the fascial layer. An awl was used to find the proper starting points at the tip of greater trochanter. Extensive comminution was noted here. The trochanter was displaced posteriorly. A guidewire was placed to the cannulated portion of the awl and advanced across the fracture site down the intramedullary canal to a point just superior to the superior pole of the patella. AP and lateral C-arm views confirmed that the fracture reduction had held. They confirmed satisfactory position of the guidewire. Sequential reaming was performed over the guidewire. Distally, up to 1 mm diameter of 13 and proximally the 15.5 reamer was used. The guidewire was measured at 345 mm. Therefore, an 11 x 340 x 125 long right Gamma nail was chosen. This nail was advanced over the guidewire without difficulty. Multiple AP and lateral C-arm views confirmed satisfactory position of the nail. Using the lateral Gamma nail guide, a skin incision was made and the lag screw guide was advanced down to bone. A guidewire was used to find the central position and across the femoral neck into the head. AP and lateral C-arm views confirmed a satisfactory position of the guidewire in the central position. This was measured to 90 mm. A 10.5 x 90 proximal lag screw was chosen. This was advanced over the guidewire. Screw drilling was performed. The lag screw was placed. AP and lateral C-arm views confirmed satisfactory placements of the lag screw. There was no loss of reduction. A proximal set screw was placed and locked into position. Next, the lateral Gamma nail guide was removed. AP and lateral C-arm views were obtained. Attention was turned to placement of a distal locking screw. Perfect navajo technique was used. A skin incision was made laterally and dissection down the bone was performed. A drill was used to enter the bone and measured a 42.5 mm. A 42.5 mm distal locking screw was advanced through the nail. AP and lateral C-arm views confirmed satisfactory position of the distal locking screw. Final C-arm views were obtained. All incisions were copiously irrigated with sterile saline. The lateral fascial layers were closed using interrupted #1 Vicryls. The rest of the incisions were closed in a layered fashion using 0 and 2-0 Vicryls. The skin was closed using running 3-0 nylon suture. The reamings from the intramedullary canal had been collected and these will be sent to Pathology. The patient's incisions were covered with Xeroform, 4x4s, and paper tape. The patient's anesthesia was reversed without difficulty. She was taken to the PACU in stable condition. Intended weightbearing will be 25% weightbearing. Intended DVT prophylaxis will be heparin for now and can be determined by the hospitalist group. We will follow her platelets closely. [id number]/[facility] #: [id number] YOLY
[2018-03-15] MEDS: Lactated Ringers 1000 ML Bag* 1,000 ML IV SCH (01:18)
[2018-03-15] MEDS: Morphine INJ* 2 MG/ML 1 ML SYRINGE (TWO MG - NEW SYRINGE VERSION) IV PRN ×7 (02:54→20:15)
[2018-03-15] MEDS: ceFAZolin* 2 GM* Q8H (Duplex) IVPB SCH ×3 (05:16→21:33)
[2018-03-15] MEDS: oxyCODONE/Acetamin 5/325 MG* TAB PO PRN ×3 (05:20→14:00)
[2018-03-15 05:59] LABS: Hematocrit 22 % (35-47); Hemoglobin 7.3 g/dl (12.0-16.0)
[2018-03-15] MEDS: Pantoprazole IV* 40 MG IV SCH (08:17)
[2018-03-15] MEDS: LORazepam TAB(*) 1 MG PO SCH ×2 (08:19→20:08)
[2018-03-15] MEDS: oxyCODONE SR TAB(*) 10 MG TAB.SR PO SCH (08:19)
[2018-03-15] MEDS: Folic Acid TAB* 1 MG PO SCH (08:19)
[2018-03-15] MEDS: Thiamine TAB* 100 MG TAB PO SCH ×2 (08:19→20:08)
[2018-03-15] MEDS: Clotrimazole 1% CREAM* 45 GM TOPICAL SCH ×2 (08:20→20:19)
[2018-03-15] MEDS: Lidocaine PATCH 5%* 1 PATCH TRANSDERM SCH (08:20)
[2018-03-15] MEDS: Zinc Sulfate CAP* 220 MG PO SCH (08:20)
[2018-03-15] MEDS: Multivitamins/Minerals TAB PO SCH (08:20)
[2018-03-15] MEDS: RiFAXimin* 550 MG TAB PO SCH ×2 (08:20→20:08)
--- NOTE | 2018-03-15 10:43 | PN ---
Progress Note - Progress Note Date of Service: 03/15/18 SOAP: Subjective: []Pt seen and examined OOB in chair. SHe complains of pain "everywhere" as well as right hip pain. Denies CP, SOB, dizziness, nausea. Objective: []General: NAD RLE: Hip dressing intact, reinforced by nursing last night, with dry bloody discharge not saturated at this time. Thigh is soft, DF/PF intact, DP1+, capillary refill less thant wo seconds distally, sensation intact to light touch distally. Assessment: R IT fx POD 1 sp ORIF R femur Plan: TTWB RLE Okay to resume home pain meds, pt states she has not been getting in house DVT prophy per hospitalist, heparin okay per ortho Will discuss pRBC with medicine Will need rehab placement, PMRU preferred Vital Signs Temp 98.5 F 03/15/18 07:11 Pulse 101 03/15/18 07:11 Resp 18 03/15/18 10:16 BP 116/76 03/15/18 07:11 Pulse Ox 92 03/15/18 07:11 Intake & Output 03/14/18 03/15/18 03/15/18 18:59 06:59 18:59 Intake Total 1300 610 600 Output Total 225 350 Balance 1075 260 600 Intake: IV Fluids 1050 LR 1000 NS 50ML, Cefazolin 2G 50 Oral 250 610 600 Output: Borrero 225 350 Other: # Bowel Movements 1 Estimated Stool Amount Medium Laboratory Last Values WBC 9.0 10^3/ul (3.5-10.8) 03/14/18 04:42 RBC 2.90 10^6/ul (4.00-5.40) L 03/14/18 04:42 Hgb 7.3 g/dl (12.0-16.0) L 03/15/18 05:49 Hct 22 % (35-47) L 03/15/18 05:49 MCV 105 fL (80-97) H 03/14/18 04:42 MCH 34 pg (27-31) H 03/14/18 04:42 MCHC 32 g/dl (31-36) 03/14/18 04:42 RDW 24 % (10.5-15) H 03/14/18 04:42 Plt Count 121 10^3/ul (150-450) L 03/14/18 04:42 MPV 8.3 fL (7.4-10.4) 03/14/18 04:42 Neut % (Auto) 78.7 % 03/14/18 04:42 Lymph % (Auto) 13.0 % 03/14/18 04:42 [place] % (Auto) 7.9 % 03/14/18 04:42 Eos % (Auto) 0.1 % 03/14/18 04:42 Baso % (Auto) 0.3 % 03/14/18 04:42 Absolute Neuts (auto) 7.1 10^3/ul (1.5-7.7) 03/14/18 04:42 Absolute Lymphs (auto) 1.2 10^3/ul (1.0-4.8) 03/14/18 04:42 Absolute Monos (auto) 0.7 10^3/ul (0-0.8) 03/14/18 04:42 Absolute Eos (auto) 0 10^3/ul (0-0.6) 03/14/18 04:42 Absolute Basos (auto) 0 10^3/ul (0-0.2) 03/14/18 04:42 Absolute Nucleated RBC 0 10^3/ul 03/14/18 04:42 Nucleated RBC % 0.5 03/14/18 04:42 Hem Pathologist Commnt 03/10/18 06:04 INR (Anticoag Therapy) 1.07 (0.77-1.02) H 03/14/18 04:42 APTT 33.0 seconds (26.0-36.3) 03/09/18 18:39 Sodium 139 mmol/L (135-145) 03/14/18 04:42 Potassium 3.9 mmol/L (3.5-5.0) 03/14/18 04:42 Chloride 110 mmol/L (101-111) 03/14/18 04:42 Carbon Dioxide 26 mmol/L (22-32) 03/14/18 04:42 Anion Gap 3 mmol/L (2-11) 03/14/18 04:42 BUN 18 mg/dL (6-24) 03/14/18 04:42 Creatinine < 0.30 mg/dL (0.51-0.95) L 03/14/18 04:42 Est GFR ( Amer) 286.1 (>60) 03/14/18 04:42 Est GFR (Non-Af Amer) 236.5 (>60) 03/14/18 04:42 BUN/Creatinine Ratio 60.0 (8-20) H 03/14/18 04:42 Glucose 95 mg/dL (70-100) 03/14/18 04:42 Lactic Acid 1.4 mmol/L (0.5-2.0) 03/09/18 18:39 Calcium 7.2 mg/dL (8.6-10.3) L 03/14/18 04:42 Magnesium 2.1 mg/dL (1.9-2.7) 03/13/18 18:47 Iron 79 ug/dL (50-212) 03/10/18 06:04 TIBC 105 mcg/dL (250-450) L 03/10/18 06:04 % Saturation 75 % (15-55) H 03/10/18 06:04 Unsat Iron Binding < 90 ug/dL 03/10/18 06:04 Transferrin < 75 mg/dL (203-362) L 03/10/18 06:04 Ferritin 290.7 ng/mL (11-307) 03/10/18 06:04 Total Bilirubin 1.00 mg/dL (0.2-1.0) 03/12/18 05:09 Direct Bilirubin 0.60 mg/dL (0.03-0.18) H 03/10/18 18:44 Indirect Bilirubin 0.7 mg/dL (0.3-1.0) 03/10/18 18:44 AST 48 U/L (13-39) H 03/12/18 05:09 ALT 36 U/L (7-52) 03/12/18 05:09 Alkaline Phosphatase 212 U/L (34-104) H 03/12/18 05:09 Ammonia 92 mcmol/L (16-53) H 03/14/18 04:42 Troponin I 0.01 ng/mL (<0.04) 03/09/18 18:39 C-Reactive Protein 92.27 mg/L (<8.01) H 03/09/18 18:39 B-Natriuretic Peptide 316 pg/mL (<=100) H 03/09/18 18:39 Total Protein 4.0 g/dL (6.4-8.9) L 03/12/18 05:09 Albumin 1.5 g/dL (3.2-5.2) L 03/12/18 05:09 Globulin 2.5 g/dL (2-4) 03/12/18 05:09 Albumin/Globulin Ratio 0.6 (1-3) L 03/12/18 05:09 Prealbumin 6 mg/dL (18-38) L 03/09/18 18:39 Lipase 17 U/L (11.0-82.0) 03/09/18 18:39 Vitamin B12 > 1450 pg/mL (180-914) H 03/09/18 18:39 TSH 1.87 mcIU/mL (0.34-5.60) 03/09/18 18:39 Urine Color [place] 03/11/18 00:06 Urine Appearance Cloudy 03/11/18 00:06 Urine pH 5.0 (5-9) 03/11/18 00:06 Ur Specific [place] > 1.060 (1.010-1.030) H 03/11/18 00:06 Urine Protein 1+(30 mg/dl) (Negative) A 03/11/18 00:06 Urine Ketones Negative (Negative) 03/11/18 00:06 Urine Blood 1+ (Negative) A 03/11/18 00:06 Urine Nitrate Positive (Negative) A 03/11/18 00:06 Urine Bilirubin Negative (Negative) 03/11/18 00:06 Urine Urobilinogen Positive (Negative) A 03/11/18 00:06 Ur Leukocyte Esterase 1+ (Negative) A 03/11/18 00:06 Urine WBC (Auto) 3+(>20/hpf) (Absent) A 03/11/18 00:06 Urine RBC (Auto) 3+(>10/hpf) (Absent) A 03/11/18 00:06 Ur Transition Epith Cell Present (Absent) A 03/11/18 00:06 Urine Bacteria 3+ (Absent) A 03/11/18 00:06 Urine Glucose Negative (Negative) 03/11/18 00:06 Serum Alcohol < 10 mg/dL (<10) 03/09/18 18:39 Blood Type B Positive 03/09/18 18:39 Antibody Screen Negative 03/09/18 18:39 Crossmatch See Detail 03/09/18 18:39
[2018-03-15] MEDS ORDERED: Morphine INJ* 2 MG/ML 1 ML SYRINGE (TWO MG - NEW SYRINGE VERSION) ONE (10:46)
--- NOTE | 2018-03-15 16:11 | PN ---
Subjective Date of Service: 03/15/18 Interval History: Patient is POD 1 from RT hip ORIF. States pain is 9.5/10, cannot localize. She has had chronic pain prior to injury. She is eating, and reports diarrhea not constipation. Pain medications increased earlier today, pain was worse prior to that. Family History: Unchanged from Admission Social History: Unchanged from Admission Past Medical History: Unchanged from Admission Objective Active Medications: Acetaminophen (Tylenol Tab*) 650 mg PO Q4H PRN PRN Reason: FEVER/PAIN Clotrimazole (Clotrimazole 1%*) 1 applic TOPICAL BID [facility] Last Admin: 03/15/18 08:20 Dose: 1 applic Docusate Sodium (Colace Cap*) 100 mg PO BID PRN PRN Reason: CONSTIPATION Folic Acid (Folvite Tab*) 1 mg PO DAILY [facility] Last Admin: 03/15/18 08:19 Dose: 1 mg Cefazolin Sodium/Dextrose (Kefzol 2 Gm Premix In Ors(*)) 2 gm in 50 mls @ 100 mls/hr IVPB Q8H [facility] Last Admin: 03/15/18 12:54 Dose: 100 mls/hr Potassium Chloride/Sodium Chloride (Ns 0.9% W/ 20 Meq Kcl 1000 Ml*) 1,000 mls @ 75 mls/hr IV PER RATE [facility] Last Admin: 03/13/18 18:36 Dose: 75 mls/hr Lactated Ringer's (Lactated Ringers 1000 Ml Bag*) 1,000 mls @ 50 mls/hr IV PER RATE [facility] Last Admin: 03/15/18 01:18 Dose: 50 mls/hr Lactulose (Lactulose*) 30 ml PO TID [facility] Last Admin: 03/15/18 12:49 Dose: 30 ml Lidocaine (Lidoderm 5% Patch*) 1 patch TRANSDERM DAILY [facility] Last Admin: 03/15/18 08:20 Dose: 1 patch Lorazepam (Ativan Tab(*)) 1 mg PO BID [facility] Last Admin: 03/15/18 08:19 Dose: 1 mg Morphine Sulfate (Morphine Inj ((Syringe))*) 4 mg IV Q2H PRN PRN Reason: PAIN - MILD Last Admin: 03/15/18 14:56 Dose: 4 mg Multivitamins/Minerals (Theragran/Minerals Tab*) 1 tab PO DAILY [facility] Last Admin: 03/15/18 08:20 Dose: 1 tab Ondansetron HCl (Zofran Inj*) 4 mg IV Q4H PRN PRN Reason: NAUSEA/VOMITING Last Admin: 03/13/18 18:33 Dose: 4 mg Oxycodone HCl (Oxycontin(*)) 20 mg PO BID [facility] Oxycodone/Acetaminophen (Percocet 5/325 Tab*) 1 tab PO Q4H PRN PRN Reason: PAIN Last Admin: 03/15/18 14:00 Dose: 1 tab Pantoprazole Sodium (Protonix Iv*) 40 mg IV DAILY [facility] Last Admin: 03/15/18 08:17 Dose: 40 mg Pharmacy Profile Note (Lidocaine Patch Remove*) 1 note N/A 2100 [facility] Last Admin: 03/14/18 22:21 Dose: 1 note Rifaximin (Xifaxan*) 550 mg PO BID [facility] Last Admin: 03/15/18 08:20 Dose: 550 mg Thiamine HCl (Vitamin B-1 Tab*) 100 mg PO BID [facility] Last Admin: 03/15/18 08:19 Dose: 100 mg Zinc Sulfate (Zinc-220 Cap*) 220 mg PO DAILY [facility] Last Admin: 03/15/18 08:20 Dose: 220 mg Vital Signs - 8 hr 03/15/18 03/15/18 03/15/18 08:16 08:19 09:21 Temperature Pulse Rate Respiratory 18 18 18 Rate Blood Pressure (mmHg) O2 Sat by Pulse Oximetry 03/15/18 03/15/18 03/15/18 09:28 10:16 10:48 Temperature Pulse Rate Respiratory 18 18 18 Rate Blood Pressure (mmHg) O2 Sat by Pulse Oximetry 03/15/18 03/15/18 03/15/18 11:36 11:39 12:03 Temperature 36.7 C Pulse Rate 118 Respiratory 16 18 16 Rate Blood Pressure 100/73 (mmHg) O2 Sat by Pulse 95 Oximetry 03/15/18 03/15/18 03/15/18 12:49 14:00 14:34 Temperature Pulse Rate Respiratory 18 18 18 Rate Blood Pressure (mmHg) O2 Sat by Pulse Oximetry 03/15/18 14:56 Temperature Pulse Rate Respiratory 18 Rate Blood Pressure (mmHg) O2 Sat by Pulse Oximetry Oxygen Devices in Use Now: None Appearance: chronically ill appearing, cachectic. Ears/Nose/Mouth/Throat: Clear Oropharnyx Neck: No Thyroid Enlargement, Masses Respiratory: Clear to Auscultation, Clear to Percussion Cardiovascular: NL Sounds; No Murmurs; No JVD, RRR, No Edema - 1+ edema bilat LE Abdominal: NL Sounds; No Tenderness; No Distention, No Hepatosplenomegaly Lymphatic: No Cervical Adenopathy Neurological: Alert and Oriented x 3 Lines/Tubes/Other Access: Clean, Dry and Intact Peripheral IV Nutrition: Taking PO's Result Diagrams: 03/15/18 05:49 03/14/18 04:42 Additional Lab and Data: Laboratory Tests 03/14/18 03/15/18 04:42 05:49 Hgb 9.8 L 7.3 L Hct 30 L 22 L Assess/Plan/Problems-Billing Assessment: 48 yo F with PMH rectal Ca s/p chemo radiation and surgery in 2007, followed by Dr. Harry with elevated tumor markers, EtOH use d/o, peripheral neuropathy, failure to thrive with current BMI 13 who presented s/p mechanical fall found to have R hip fracture and anemia to 7 s/p 2 U PRBC. - Patient Problems (1) Fracture of right hip Current Visit: Yes Status: Acute Priority: High Code(s): S72.001A - FRACTURE OF UNSP PART OF NECK OF RIGHT FEMUR, INIT SNOMED Code(s): 578315378 Comment: -POD 1 today -Management by Dr. Lopez -expect will need SNF-level rehab due to poor performance status. -pain control addressed today (2) Alcoholic hepatitis Current Visit: Yes Status: Acute Priority: Medium Code(s): K70.10 - ALCOHOLIC HEPATITIS WITHOUT ASCITES SNOMED Code(s): 461308912 Comment: -Ammonia levels falling on lactulose and Xifaxan -no apparent withdrawal today (3) Anemia Current Visit: Yes Status: Acute Code(s): D64.9 - ANEMIA, UNSPECIFIED SNOMED Code(s): 735485414 Comment: -anemia due to chronic disease and losses from surgery -1 unit PRBC to be transfused today -recheck CBC in AM (4) DVT prophylaxis Current Visit: No Status: Acute Code(s): XPU4450 - SNOMED Code(s): 643762267 Comment: -will start lovenox tomorrow -will discuss Eliquis with ortho Status and Disposition: likely will need STR
[2018-03-15] MEDS: oxyCODONE SR TAB(*) 20 MG TAB.SR PO SCH (20:08)
[2018-03-15] MEDS: Lidocaine Patch REMOVE* 1 NOTE MISC SCH (21:33)
[2018-03-16] MEDS: Morphine INJ* 2 MG/ML 1 ML SYRINGE (TWO MG - NEW SYRINGE VERSION) IV PRN ×7 (05:00→23:01)
[2018-03-16] MEDS: ceFAZolin* 2 GM* Q8H (Duplex) IVPB SCH ×4 (05:02→23:01)
[2018-03-16 06:33] LABS: ABS Basophils 0 10^3/ul (0-0.2); ABS Eosinophils 0 10^3/ul (0-0.6); ABS Neutrophils 11.5 10^3/ul (1.5-7.7); ABS Nucleated RBC 0 10^3/ul; Eosinophil % 0.3 %; Hematocrit 27 % (35-47); Hemoglobin 9.1 g/dl (12.0-16.0); Lymphocyte % 7.4 %; Mean Corpuscular HGB Conc 33 g/dl (31-36); Mean Corpuscular Hemoglobin 34 pg (27-31); Mean Corpuscular Volume 103 fL (80-97); Mean Platelet Volume 8.6 fL (7.4-10.4); Nucleated Red Blood Cells % 0.1; Platelet Count 245 10^3/ul (150-450); Red Blood Count 2.67 10^6/ul (4.00-5.40); Red Cell Distribution Width 24 % (10.5-15); White Blood Count 13.5 10^3/ul (3.5-10.8)
[2018-03-16 06:48] LABS: Total Iron Binding Capacity 105 mcg/dL (250-450); Transferrin < 75 mg/dL (203-362)
[2018-03-16 06:54] LABS: % Iron Saturation 16 % (15-55); Iron < 17 ug/dL (50-212)
[2018-03-16] MEDS: Pantoprazole IV* 40 MG IV SCH (08:33)
[2018-03-16] MEDS: Enoxaparin(*) 40 MG/0.4 ML SYR SUBCUT SCH (08:34)
[2018-03-16] MEDS: Zinc Sulfate CAP* 220 MG PO SCH (08:37)
[2018-03-16] MEDS: Clotrimazole 1% CREAM* 45 GM TOPICAL SCH ×2 (08:37→22:57)
[2018-03-16] MEDS: Folic Acid TAB* 1 MG PO SCH (08:38)
[2018-03-16] MEDS: RiFAXimin* 550 MG TAB PO SCH ×2 (08:38→22:56)
[2018-03-16] MEDS: Thiamine TAB* 100 MG TAB PO SCH ×2 (08:38→20:57)
[2018-03-16] MEDS: oxyCODONE SR TAB(*) 20 MG TAB.SR PO SCH ×2 (08:40→20:55)
[2018-03-16] MEDS: Multivitamins/Minerals TAB PO SCH (08:41)
[2018-03-16] MEDS: LORazepam TAB(*) 1 MG PO SCH ×2 (08:41→20:57)
[2018-03-16] MEDS: Lidocaine PATCH 5%* 1 PATCH TRANSDERM SCH (08:45)
--- NOTE | 2018-03-16 13:55 | PN ---
Progress Note - Progress Note Date of Service: 03/16/18 SOAP: Subjective: []Pt seen and examined at bedside. She is in pain " everywhere" without pain of right hip pain. Denies CP, SOB, dizziness or nausea. Objective: []General: NAD RLE: Hip dressing changed by Dr Lopez this morning, remains CDI. Thigh is soft , DF/PF intact, DP1+, capillary refill less than two seconds distally, sensation intact to light touch distally. Calves supple and nontender without erythema, edema or palpable cords Assessment: R IT fx POD 2 sp ORIF R femur Plan: TTWB RLE DVT prophy per hospitalist, lovenox started today Will need rehab placement, PMRU preferred Vital Signs Temp 98.4 F 03/16/18 11:16 Pulse 117 03/16/18 13:35 Resp 18 03/16/18 13:08 BP 110/75 03/16/18 11:16 Pulse Ox 95 03/16/18 13:35 Intake & Output 03/15/18 03/16/18 03/16/18 18:59 06:59 18:59 Intake Total 1204 160 210 Output Total 50 150 Balance 1154 10 210 Intake: IVPB 100 ABX - CEFAZOLIN 100 Oral 940 60 210 Packed Cells 264 Output: [place] 50 150 Other: # Bowel Movements 0 2 Estimated Stool Amount Large Laboratory Last Values WBC 13.5 10^3/ul (3.5-10.8) H 03/16/18 06:01 RBC 2.67 10^6/ul (4.00-5.40) L 03/16/18 06:01 Hgb 9.1 g/dl (12.0-16.0) L 03/16/18 06:01 Hct 27 % (35-47) L 03/16/18 06:01 MCV 103 fL (80-97) H 03/16/18 06:01 MCH 34 pg (27-31) H 03/16/18 06:01 MCHC 33 g/dl (31-36) 03/16/18 06:01 RDW 24 % (10.5-15) H 03/16/18 06:01 Plt Count 245 10^3/ul (150-450) 03/16/18 06:01 MPV 8.6 fL (7.4-10.4) 03/16/18 06:01 Neut % (Auto) 85.1 % 03/16/18 06:01 Lymph % (Auto) 7.4 % 03/16/18 06:01 [place] % (Auto) 7.1 % 03/16/18 06:01 Eos % (Auto) 0.3 % 03/16/18 06:01 Baso % (Auto) 0.1 % 03/16/18 06:01 Absolute Neuts (auto) 11.5 10^3/ul (1.5-7.7) H 03/16/18 06:01 Absolute Lymphs (auto) 1.0 10^3/ul (1.0-4.8) 03/16/18 06:01 Absolute Monos (auto) 1.0 10^3/ul (0-0.8) H 03/16/18 06:01 Absolute Eos (auto) 0 10^3/ul (0-0.6) 03/16/18 06:01 Absolute Basos (auto) 0 10^3/ul (0-0.2) 03/16/18 06:01 Absolute Nucleated RBC 0 10^3/ul 03/16/18 06:01 Nucleated RBC % 0.1 03/16/18 06:01 Hem Pathologist Commnt 03/10/18 06:04 INR (Anticoag Therapy) 1.07 (0.77-1.02) H 03/14/18 04:42 APTT 33.0 seconds (26.0-36.3) 03/09/18 18:39 Sodium 139 mmol/L (135-145) 03/14/18 04:42 Potassium 3.9 mmol/L (3.5-5.0) 03/14/18 04:42 Chloride 110 mmol/L (101-111) 03/14/18 04:42 Carbon Dioxide 26 mmol/L (22-32) 03/14/18 04:42 Anion Gap 3 mmol/L (2-11) 03/14/18 04:42 BUN 18 mg/dL (6-24) 03/14/18 04:42 Creatinine < 0.30 mg/dL (0.51-0.95) L 03/14/18 04:42 Est GFR ( Amer) 286.1 (>60) 03/14/18 04:42 Est GFR (Non-Af Amer) 236.5 (>60) 03/14/18 04:42 BUN/Creatinine Ratio 60.0 (8-20) H 03/14/18 04:42 Glucose 95 mg/dL (70-100) 03/14/18 04:42 Lactic Acid 1.4 mmol/L (0.5-2.0) 03/09/18 18:39 Calcium 7.2 mg/dL (8.6-10.3) L 03/14/18 04:42 Magnesium 2.1 mg/dL (1.9-2.7) 03/13/18 18:47 Iron < 17 ug/dL (50-212) L 03/16/18 06:01 TIBC 105 mcg/dL (250-450) L 03/16/18 06:01 % Saturation 16 % (15-55) 03/16/18 06:01 Unsat Iron Binding < 90 ug/dL 03/16/18 06:01 Transferrin < 75 mg/dL (203-362) L 03/16/18 06:01 Ferritin 290.7 ng/mL (11-307) 03/10/18 06:04 Total Bilirubin 1.00 mg/dL (0.2-1.0) 03/12/18 05:09 Direct Bilirubin 0.60 mg/dL (0.03-0.18) H 03/10/18 18:44 Indirect Bilirubin 0.7 mg/dL (0.3-1.0) 03/10/18 18:44 AST 48 U/L (13-39) H 03/12/18 05:09 ALT 36 U/L (7-52) 03/12/18 05:09 Alkaline Phosphatase 212 U/L (34-104) H 03/12/18 05:09 Ammonia 87 mcmol/L (16-53) H 03/16/18 06:01 Troponin I 0.01 ng/mL (<0.04) 03/09/18 18:39 C-Reactive Protein 92.27 mg/L (<8.01) H 03/09/18 18:39 B-Natriuretic Peptide 316 pg/mL (<=100) H 03/09/18 18:39 Total Protein 4.0 g/dL (6.4-8.9) L 03/12/18 05:09 Albumin 1.5 g/dL (3.2-5.2) L 03/12/18 05:09 Globulin 2.5 g/dL (2-4) 03/12/18 05:09 Albumin/Globulin Ratio 0.6 (1-3) L 03/12/18 05:09 Prealbumin 6 mg/dL (18-38) L 03/09/18 18:39 Lipase 17 U/L (11.0-82.0) 03/09/18 18:39 Vitamin B12 > 1450 pg/mL (180-914) H 03/09/18 18:39 TSH 1.87 mcIU/mL (0.34-5.60) 03/09/18 18:39 Urine Color [place] 03/11/18 00:06 Urine Appearance Cloudy 03/11/18 00:06 Urine pH 5.0 (5-9) 03/11/18 00:06 Ur Specific Needles > 1.060 (1.010-1.030) H 03/11/18 00:06 Urine Protein 1+(30 mg/dl) (Negative) A 03/11/18 00:06 Urine Ketones Negative (Negative) 03/11/18 00:06 Urine Blood 1+ (Negative) A 03/11/18 00:06 Urine Nitrate Positive (Negative) A 03/11/18 00:06 Urine Bilirubin Negative (Negative) 03/11/18 00:06 Urine Urobilinogen Positive (Negative) A 03/11/18 00:06 Ur Leukocyte Esterase 1+ (Negative) A 03/11/18 00:06 Urine WBC (Auto) 3+(>20/hpf) (Absent) A 03/11/18 00:06 Urine RBC (Auto) 3+(>10/hpf) (Absent) A 03/11/18 00:06 Ur Transition Epith Cell Present (Absent) A 03/11/18 00:06 Urine Bacteria 3+ (Absent) A 03/11/18 00:06 Urine Glucose Negative (Negative) 03/11/18 00:06 Serum Alcohol < 10 mg/dL (<10) 03/09/18 18:39 Blood Type B Positive 03/15/18 05:49 Antibody Screen Negative 03/15/18 05:49 Crossmatch See Detail 03/15/18 05:49
--- NOTE | 2018-03-16 15:39 | PN ---
Subjective Date of Service: 03/16/18 Interval History: Patient reports pain in back and RT hip. Pain medications are barely adequate. Denies SOB, but has had increasing O2 needs and tachycardia this afternoon. Denies chest pain, cough, fever. Abdomen feels upset, but no pain. Family History: Unchanged from Admission Social History: Unchanged from Admission Past Medical History: Unchanged from Admission Objective Active Medications: Acetaminophen (Tylenol Tab*) 650 mg PO Q4H PRN PRN Reason: FEVER/PAIN Clotrimazole (Clotrimazole 1%*) 1 applic TOPICAL BID [facility] Last Admin: 03/16/18 08:37 Dose: 1 applic Docusate Sodium (Colace Cap*) 100 mg PO BID PRN PRN Reason: CONSTIPATION Enoxaparin Sodium (Lovenox(*)) 40 mg SUBCUT Q24H [facility] Last Admin: 03/16/18 08:34 Dose: 40 mg Folic Acid (Folvite Tab*) 1 mg PO DAILY [facility] Last Admin: 03/16/18 08:38 Dose: 1 mg Cefazolin Sodium/Dextrose (Kefzol 2 Gm Premix In Ors(*)) 2 gm in 50 mls @ 100 mls/hr IVPB Q8H [facility] Last Admin: 03/16/18 13:55 Dose: 100 mls/hr Lactulose (Lactulose*) 30 ml PO TID [facility] Last Admin: 03/16/18 13:10 Dose: 30 ml Lidocaine (Lidoderm 5% Patch*) 1 patch TRANSDERM DAILY [facility] Last Admin: 03/16/18 08:45 Dose: 1 patch Lorazepam (Ativan Tab(*)) 1 mg PO BID [facility] Last Admin: 03/16/18 08:41 Dose: 1 mg Morphine Sulfate (Morphine Inj ((Syringe))*) 4 mg IV Q2H PRN PRN Reason: PAIN - MILD Last Admin: 03/16/18 13:08 Dose: 4 mg Multivitamins/Minerals (Theragran/Minerals Tab*) 1 tab PO DAILY [facility] Last Admin: 03/16/18 08:41 Dose: 1 tab Ondansetron HCl (Zofran Inj*) 4 mg IV Q4H PRN PRN Reason: NAUSEA/VOMITING Last Admin: 03/13/18 18:33 Dose: 4 mg Oxycodone HCl (Oxycontin(*)) 20 mg PO BID [facility] Last Admin: 03/16/18 08:40 Dose: 20 mg Oxycodone/Acetaminophen (Percocet 5/325 Tab*) 1 tab PO Q4H PRN PRN Reason: PAIN Last Admin: 03/15/18 14:00 Dose: 1 tab Pantoprazole Sodium (Protonix Iv*) 40 mg IV DAILY [facility] Last Admin: 03/16/18 08:33 Dose: 40 mg Pharmacy Profile Note (Lidocaine Patch Remove*) 1 note N/A 2100 [facility] Last Admin: 03/15/18 21:33 Dose: Not Given Rifaximin (Xifaxan*) 550 mg PO BID [facility] Last Admin: 03/16/18 08:38 Dose: 550 mg Thiamine HCl (Vitamin B-1 Tab*) 100 mg PO BID [facility] Last Admin: 03/16/18 08:38 Dose: 100 mg Zinc Sulfate (Zinc-220 Cap*) 220 mg PO DAILY [facility] Last Admin: 03/16/18 08:37 Dose: 220 mg Vital Signs - 8 hr 03/16/18 03/16/18 03/16/18 08:41 11:16 11:25 Temperature 36.9 C Pulse Rate 127 124 Respiratory 16 15 Rate Blood Pressure 110/75 (mmHg) O2 Sat by Pulse 85 93 Oximetry 03/16/18 03/16/18 03/16/18 13:08 13:35 14:54 Temperature 37.7 C Pulse Rate 117 111 Respiratory 18 18 Rate Blood Pressure 122/91 (mmHg) O2 Sat by Pulse 95 95 Oximetry 03/16/18 15:07 Temperature 37.8 C Pulse Rate 111 Respiratory 19 Rate Blood Pressure 122/91 (mmHg) O2 Sat by Pulse 94 Oximetry Oxygen Devices in Use Now: Nasal Cannula Appearance: Chronically ill appearing, NAD Eyes: No Scleral Icterus Neck: Trachea Midline Respiratory: Symmetrical Chest Expansion and Respiratory Effort, Clear to Auscultation Cardiovascular: NL Sounds; No Murmurs; No JVD, - - tachy,regular, 1+ edema bilat LE, JVP not elevated Abdominal: NL Sounds; No Tenderness; No Distention, No Hepatosplenomegaly Lymphatic: No Cervical Adenopathy Skin: No Rash or Ulcers Neurological: Alert and Oriented x 3 Lines/Tubes/Other Access: Clean, Dry and Intact Peripheral IV Nutrition: Taking PO's Result Diagrams: 03/16/18 06:01 03/14/18 04:42 Additional Lab and Data: Laboratory Tests 03/16/18 03/16/18 06:01 06:01 Iron < 17 L TIBC 105 L % Saturation 16 Unsat Iron Binding < 90 Transferrin < 75 L Ammonia 87 H Microbiology and Other Data: Microbiology 03/11/18 11:12 Blood Venous Aerobic Blood Culture - Final 03/11/18 11:12 Blood Venous Anaerobic Blood Culture - Final No Growth Day 5 No Growth Day 5 03/11/18 00:06 Urine Urine Culture - Final Pseudomonas Aeruginosa Escherichia Coli 03/13/18 05:29 Blood Venous Aerobic Blood Culture - Preliminary 03/13/18 05:29 Blood Venous Anaerobic Blood Culture - Preliminary No Growth Day 3 No Growth Day 3 03/13/18 05:18 Blood Venous Aerobic Blood Culture - Preliminary 03/13/18 05:18 Blood Venous Anaerobic Blood Culture - Preliminary No Growth Day 3 No Growth Day 3 03/12/18 07:02 Blood Venous Aerobic Blood Culture - Preliminary 03/12/18 07:02 Blood Venous Anaerobic Blood Culture - Preliminary No Growth Day 4 No Growth Day 4 03/12/18 05:12 Blood Venous Aerobic Blood Culture - Preliminary 03/12/18 05:12 Blood Venous Anaerobic Blood Culture - Preliminary No Growth Day 4 No Growth Day 4 Diagnostic Imaging: CXR: bibasilar infiltrates, possible pulm edema, bilateral lung nodules EKG Data: Sinus tachy, poor R-wave progression anterior Qs, possible old AMI Assess/Plan/Problems-Billing Assessment: 48 yo F with PMH rectal Ca s/p chemo radiation and surgery in 2007, followed by Dr. Harry with elevated tumor markers, EtOH use d/o, peripheral neuropathy, failure to thrive with current BMI 13 who presented s/p mechanical fall found to have R hip fracture. - Patient Problems (1) Fracture of right hip Current Visit: Yes Status: Acute Priority: High Code(s): S72.001A - FRACTURE OF UNSP PART OF NECK OF RIGHT FEMUR, INIT SNOMED Code(s): 932126251 Comment: -POD 2 today -Management by Dr. Lopez -expect will need SNF-level rehab due to poor performance status. -pain control adequate, given pre-morbid chronic pain medications (2) Alcoholic hepatitis Current Visit: Yes Status: Acute Priority: Medium Code(s): K70.10 - ALCOHOLIC HEPATITIS WITHOUT ASCITES SNOMED Code(s): 558163220 Comment: -Ammonia levels falling on lactulose and Xifaxan -has had no alcohol for weeks,so doubt withdrawal today (3) Anemia Current Visit: Yes Status: Acute Code(s): D64.9 - ANEMIA, UNSPECIFIED SNOMED Code(s): 611020379 Comment: -anemia due to chronic disease and losses from surgery -had 3rd unit PRBC yesterday -labs consistent with anemia of chronic disease, but also likely iron deficient -giving one dose iron sucrose. -recheck CBC in AM (4) DVT prophylaxis Current Visit: No Status: Acute Code(s): QCY8720 - SNOMED Code(s): 366454328 Comment: -started lovenox today (5) Tachycardia Current Visit: Yes Status: Acute Priority: High Code(s): R00.0 - TACHYCARDIA, UNSPECIFIED SNOMED Code(s): 6668008 Comment: -Differential includes sepsis, uncontrolled pain, alcohol withdrawal , PE -I do not think she is volume overloaded, will start LR -CTA chest this afternoon r/o PE -on cefazolin, last Urine cult showed Ecoli and pseudomonas -if pneumonia demonstrated w/ switch to Zosyn plus doxy. Status and Disposition: likely will need STR once stable, inpatient for now
[2018-03-16] MEDS ORDERED: Lactated Ringers 1000 ML Bag* 1,000 ML IV SCH ×2 (16:00)
[2018-03-16] MEDS ORDERED: Iron Sucrose* 200 MG in NS 0.9% 100 ML* 100 ML IVPB ONE (16:00)
[2018-03-16 16:16] LABS: Zinc 0.78 mcg/mL (0.66-1.10)
[2018-03-16] MEDS ORDERED: Iohexol 350* (CONTRAST) 500 ML MDV IV ONE (16:21)
[2018-03-16] MEDS ORDERED: Furosemide IV* 10 MG/ML 2 ML VIAL (20 MG) IV SLOW PU ONE (17:27)
[2018-03-16 19:26] LABS: Urine Appearance Cloudy; Urine Bacteria Absent (Absent); Urine Bilirubin Negative (Negative); Urine Blood 2+ (Negative); Urine Color Yellow; Urine Glucose Negative (Negative); Urine Ketones Negative (Negative); Urine Nitrite Positive (Negative); Urine Protein Negative (Negative); Urine Red Blood Cell 3+(>10/hpf) (Absent); Urine Specific Gravity 1.013 (1.010-1.030); Urine Urobilinogen Negative (Negative); Urine White Blood Cell 3+(>20/hpf) (Absent)
[2018-03-16 19:29] LABS: ALT 12 U/L (7-52); AST 34 U/L (13-39); Albumin 1.7 g/dL (3.2-5.2); Albumin/Globulin Ratio 0.7 (1-3); Alkaline Phosphatase 194 U/L (34-104); Anion Gap 2 mmol/L (2-11); Blood Urea Nitrogen 16 mg/dL (6-24); CO2 Carbon Dioxide 31 mmol/L (22-32); Calcium 7.2 mg/dL (8.6-10.3); Chloride 103 mmol/L (101-111); EGFR African American 286.1 (>60); EGFR Non-African American 236.5 (>60); Globulin 2.5 g/dL (2-4); Glucose 101 mg/dL (70-100); Potassium 3.4 mmol/L (3.5-5.0); Sodium 136 mmol/L (135-145); Total Protein 4.2 g/dL (6.4-8.9)
[2018-03-16] MEDS: Lidocaine Patch REMOVE* 1 NOTE MISC SCH (23:58)
[2018-03-17] MEDS: Morphine INJ* 2 MG/ML 1 ML SYRINGE (TWO MG - NEW SYRINGE VERSION) IV PRN ×3 (02:04→08:20)
[2018-03-17] MEDS ORDERED: Furosemide IV* 10 MG/ML 2 ML VIAL (20 MG) IV ONE ×2 (05:10→15:00)
[2018-03-17] MEDS: ceFAZolin* 2 GM* Q8H (Duplex) IVPB SCH (05:42)
--- NOTE | 2018-03-17 05:42 | PN ---
Progress Note - Progress Note Date of Service: 03/17/18 Note: Paged for hypoxia - now requiring 15L oxymask. On arrival, oxymask falling off face. Conversationaly dyspneic with tracheal tugging. Denies SOB or CP. Diminished breath sounds b/l. CTA showed large b/l pleural effusions earlier. Will give lasix x 1. Will switch to salter. If no improvement will transfer to ICU for vapotherm. Do not think she will tolerate CPAP mask.
[2018-03-17 07:15] LABS: Hematocrit 31 % (35-47); Hemoglobin 10.2 g/dl (12.0-16.0); Mean Corpuscular HGB Conc 33 g/dl (31-36); Mean Corpuscular Hemoglobin 34 pg (27-31); Mean Corpuscular Volume 104 fL (80-97); Platelet Count 282 10^3/ul (150-450); Red Blood Count 2.98 10^6/ul (4.00-5.40); Red Cell Distribution Width 24 % (10.5-15); White Blood Count 15.3 10^3/ul (3.5-10.8)
[2018-03-17 07:32] LABS: BUN/Creatinine Ratio 34.3 (8-20); Calcium 7.3 mg/dL (8.6-10.3); EGFR African American 239.5 (>60); EGFR Non-African American 197.9 (>60)
[2018-03-17 07:34] LABS: Potassium 3.5 mmol/L (3.5-5.0)
[2018-03-17 07:43] LABS: ABS Neutrophils 13.3 10^3/ul (1.5-7.7)
[2018-03-17] MEDS: Enoxaparin(*) 40 MG/0.4 ML SYR SUBCUT SCH (07:46)
[2018-03-17] MEDS: Folic Acid TAB* 1 MG PO SCH (07:47)
[2018-03-17] MEDS: LORazepam TAB(*) 1 MG PO SCH (07:47)
[2018-03-17] MEDS: oxyCODONE SR TAB(*) 20 MG TAB.SR PO SCH ×2 (07:47→21:01)
[2018-03-17] MEDS: Thiamine TAB* 100 MG TAB PO SCH ×2 (07:47→21:01)
[2018-03-17] MEDS: Lidocaine PATCH 5%* 1 PATCH TRANSDERM SCH (07:47)
[2018-03-17 07:48] LABS: Lymphocytes % 6 %; Monocytes % 2 %; Neutrophil % 91 %
[2018-03-17] MEDS: Pantoprazole IV* 40 MG IV SCH (07:48)
[2018-03-17] MEDS: Multivitamins/Minerals TAB PO SCH (07:48)
[2018-03-17] MEDS: Clotrimazole 1% CREAM* 45 GM TOPICAL SCH ×2 (07:48→21:05)
[2018-03-17] MEDS: Zinc Sulfate CAP* 220 MG PO SCH (07:48)
[2018-03-17] MEDS: RiFAXimin* 550 MG TAB PO SCH ×2 (07:48→21:01)
[2018-03-17 07:49] LABS: Polychromasia 1+
[2018-03-17 07:56] LABS: ABS Neutrophils 13.9 10^3/ul (1.5-7.7)
[2018-03-17 07:57] LABS: ABS Eosinophils 0.153 10^3/ul (0-0.6)
[2018-03-17] MEDS ORDERED: Morphine VIAL* 10 MG/ML 1 ML VIAL IV PRN ×2 (09:00→09:54)
--- NOTE | 2018-03-17 09:41 | PN ---
Subjective Date of Service: 03/17/18 Interval History: Pt was transferred to ICU this aM for hypoxemia and fluid overload. seen with her by the bedside. SOB better on Vapother at 3- L, Fi02 at 100%. Pt c/o "diarrhea" and chronic neuropathic pain Family History: Unchanged from Admission Social History: Unchanged from Admission Past Medical History: Unchanged from Admission Objective Active Medications: Acetaminophen (Tylenol Tab*) 650 mg PO Q4H PRN PRN Reason: FEVER/PAIN Last Admin: 03/16/18 18:15 Dose: 650 mg Clotrimazole (Clotrimazole 1%*) 1 applic TOPICAL BID [facility] Last Admin: 03/17/18 07:48 Dose: 1 applic Docusate Sodium (Colace Cap*) 100 mg PO BID PRN PRN Reason: CONSTIPATION Enoxaparin Sodium (Lovenox(*)) 40 mg SUBCUT Q24H [facility] Last Admin: 03/17/18 07:46 Dose: 40 mg Folic Acid (Folvite Tab*) 1 mg PO DAILY [facility] Last Admin: 03/17/18 07:47 Dose: 1 mg Furosemide (Lasix Iv*) 20 mg IV ONCE ONE Stop: 03/17/18 15:01 Cefazolin Sodium/Dextrose (Kefzol 2 Gm Premix In Ors(*)) 2 gm in 50 mls @ 100 mls/hr IVPB Q8H [facility] Last Admin: 03/17/18 05:42 Dose: 100 mls/hr Lactulose (Lactulose*) 30 ml PO TID [facility] Last Admin: 03/17/18 07:47 Dose: 30 ml Lidocaine (Lidoderm 5% Patch*) 1 patch TRANSDERM DAILY [facility] Last Admin: 03/17/18 07:47 Dose: 1 patch Morphine Sulfate (Morphine Vial*) 4 mg IV Q2H PRN PRN Reason: PAIN - MILD Multivitamins/Minerals (Theragran/Minerals Tab*) 1 tab PO DAILY [facility] Last Admin: 03/17/18 07:48 Dose: 1 tab Ondansetron HCl (Zofran Inj*) 4 mg IV Q4H PRN PRN Reason: NAUSEA/VOMITING Last Admin: 03/13/18 18:33 Dose: 4 mg Oxycodone HCl (Oxycontin(*)) 20 mg PO BID [facility] Last Admin: 03/17/18 07:47 Dose: 20 mg Oxycodone/Acetaminophen (Percocet 5/325 Tab*) 1 tab PO Q4H PRN PRN Reason: PAIN Last Admin: 03/15/18 14:00 Dose: 1 tab Pantoprazole Sodium (Protonix Iv*) 40 mg IV DAILY [facility] Last Admin: 03/17/18 07:48 Dose: 40 mg Pharmacy Profile Note (Lidocaine Patch Remove*) 1 note N/A 2100 [facility] Last Admin: 03/16/18 23:58 Dose: 1 note Rifaximin (Xifaxan*) 550 mg PO BID [facility] Last Admin: 03/17/18 07:48 Dose: 550 mg Thiamine HCl (Vitamin B-1 Tab*) 100 mg PO BID [facility] Last Admin: 03/17/18 07:47 Dose: 100 mg Zinc Sulfate (Zinc-220 Cap*) 220 mg PO DAILY [facility] Last Admin: 03/17/18 07:48 Dose: 220 mg Vital Signs - 8 hr 03/17/18 03/17/18 03/17/18 02:04 02:24 03:00 Temperature 98.1 F Pulse Rate 100 Respiratory 19 19 16 Rate Blood Pressure 125/89 (mmHg) O2 Sat by Pulse 91 Oximetry 03/17/18 03/17/18 03/17/18 04:50 05:12 06:06 Temperature Pulse Rate 106 Respiratory 18 16 17 Rate Blood Pressure (mmHg) O2 Sat by Pulse 90 Oximetry 03/17/18 03/17/18 07:47 08:20 Temperature Pulse Rate Respiratory 27 28 Rate Blood Pressure (mmHg) O2 Sat by Pulse Oximetry Oxygen Devices in Use Now: High Flow Heated Nasal Cannula, OxyMask Appearance: 48 yo F in NAD, AAOx2, appears older than stated age, very emanciated and frail Eyes: No Scleral Icterus, PERRLA Ears/Nose/Mouth/Throat: NL Teeth, Lips, Gums, Mucous Membranes Moist Neck: NL Appearance and Movements; NL JVP Respiratory: Symmetrical Chest Expansion and Respiratory Effort, - - decreased breath sound at b/l bases, otherwise grossly clear Cardiovascular: NL Sounds; No Murmurs; No JVD, RRR Abdominal: NL Sounds; No Tenderness; No Distention, No Hepatosplenomegaly Lymphatic: No Cervical Adenopathy Extremities: No Clubbing, Cyanosis, - - R leg post op incisions sutured-no dehiscence, no skin infection, R wrist in splint Skin: No Nodules or Sclerosis, - - stAGE 2 sacral decubitus noted Neurological: NL Muscle Strength and Tone Result Diagrams: 03/17/18 06:55 03/17/18 06:55 Additional Lab and Data: Laboratory Tests 03/16/18 03/16/18 06:01 06:01 Iron < 17 L TIBC 105 L % Saturation 16 Unsat Iron Binding < 90 Transferrin < 75 L Ammonia 87 H Microbiology and Other Data: Microbiology 03/11/18 11:12 Blood Venous Aerobic Blood Culture - Final 03/11/18 11:12 Blood Venous Anaerobic Blood Culture - Final No Growth Day 5 No Growth Day 5 03/11/18 00:06 Urine Urine Culture - Final Pseudomonas Aeruginosa Escherichia Coli 03/13/18 05:29 Blood Venous Aerobic Blood Culture - Preliminary 03/13/18 05:29 Blood Venous Anaerobic Blood Culture - Preliminary No Growth Day 3 No Growth Day 3 03/13/18 05:18 Blood Venous Aerobic Blood Culture - Preliminary 03/13/18 05:18 Blood Venous Anaerobic Blood Culture - Preliminary No Growth Day 3 No Growth Day 3 03/12/18 07:02 Blood Venous Aerobic Blood Culture - Preliminary 03/12/18 07:02 Blood Venous Anaerobic Blood Culture - Preliminary No Growth Day 4 No Growth Day 4 03/12/18 05:12 Blood Venous Aerobic Blood Culture - Preliminary 03/12/18 05:12 Blood Venous Anaerobic Blood Culture - Preliminary No Growth Day 4 No Growth Day 4 Diagnostic Imaging: CXR: bibasilar infiltrates, possible pulm edema, bilateral lung nodules EKG Data: Sinus tachy, poor R-wave progression anterior Qs, possible old AMI Assess/Plan/Problems-Billing Assessment: 48 yo F with PMH rectal Ca s/p chemo radiation and surgery in 2007, followed by Dr. Harry with elevated tumor markers, EtOH use d/o, peripheral neuropathy, failure to thrive with current BMI 13 who presented s/p mechanical fall found to have R hip fracture. on 02/04/18 pt was dx with R distal radial bone fx and placed in arm sling - Patient Problems (1) Acute hypoxemic respiratory failure Comment: CTA with pulm edema and b/l pleurla effusions, likely a consequence of fluid overlad posyt op in pt with with low oncotic pressures due to malnutrition and hypoalbuminemia Transferred to ICU on 03/17/18 . On Vapotherm now cont intermittent Lasix and f/u with daily weights and I/O's (2) Fracture of right hip Comment: -s/p R hip ORIF on 03/14/18 -Management by Dr. Lopez -expect will need SNF-level rehab due to poor performance status. (3) Alcoholic hepatitis (4) Anemia Comment: -anemia due to chronic disease and losses from surgery -had 3rd unit PRBC this hospital stay -labs consistent with anemia of chronic disease, but also likely iron deficient (5) Bacteremia Comment: MSSA on 03/13 bottles 03/09-may have been a contamination 03/11 cultures negative so far 03/12 cultures neg Continue Cefazolin, d/w ID. (6) Elevated liver enzymes Comment: chronic and likely related to etoh (7) Failure to thrive Comment: Multifactorial, onc and etoh use d/o -Does not want comfort care (8) Severe malnutrition Comment: Note low BMI and markedly low albumin. Albumin 1.7 prealbumin low Adds to poor prognostic indicators (9) History of rectal cancer Comment: evaluated by Dr. Harry on this admission due to concern of recurrence,? lesion in pancreas on u/s however not seen on CT.Eval by Dr Harry and see his note for full details.He does not think there is enough evidence of recurrence or malignancy or mets (10) Idiopathic progressive neuropathy Comment: Thought to be multifactorial and related to chemo, etoh, and autoimmune. On outpatient IVIG with Dr. Schwartz (11) UTI (urinary tract infection) Comment: Urine cx positive for E. coli (>100K) and Pseudomonas (75K) cont Cefazolin for now. Repeat urine cx pending Pt has a Borrero in place (12) DVT prophylaxis Comment: - lovenox Status and Disposition: likely will need STR once stable, inpatient for now
[2018-03-17] MEDS: ceFAZolin 1 GM ADVAN(*) 1 GM in NS 0.9% 50 ML* 50 ML IVPB SCH ×2 (11:47→20:13)
--- NOTE | 2018-03-17 13:39 | CONSULT ---
Consult Consult: WOUND CONSULT NOTE Date of Service: 03/17/18 History: Interval History: Patient seen and examined at bedside. No complaints. She is noted to have frequent loose stools. Ms. Valdez has recently had significant peripheral neuropathy that has been worked up by Dr. Schwartz and she received IVIG. She has also been following with GI. She has continued to drink alcohol and has been noted to be declining over the past month. She has been having difficulty with ambulation secondary to sensory loss. On the evening of 03/07 Ms. Valdez had a fall resulting in right hip pain. She presented to the emergency room where she was found to have a right hip fracture. She has also reported difficulty with swallowing, with coughing after eating and drinking. She has been seen in consult by orthopedics , oncology and neurology. She was noted to have skin breakdown to her coccyx and left posterior knee on admission. On 03/14/18 she underwent a right hip ORIF with Dr. Lopez. This morning she was transferred to ICU for hypoxemia and fluid overload, started on vapotherm. Past Medical/Family/Social History: Family History: Unchanged from Admission Social History: Unchanged from Admission Past Medical History: Unchanged from Admission Objective: Active Medications: Ondansetron HCl (Zofran Inj*) 4 mg IV Q4H PRN Reason: NAUSEA/VOMITING Pantoprazole Sodium (Protonix Iv*) 40 mg IV DAILY [facility] Acetaminophen (Tylenol Tab*) 650 mg PO Q4H PRN Reason: FEVER/PAIN Cefazolin Sodium 1 gm/ Sodium (Chloride) 50 mls @ 200 mls/hr IVPB Q8H [facility] Clotrimazole (Clotrimazole 1%*) 1 applic TOPICAL BID [facility] Docusate Sodium (Colace Cap*) 100 mg PO BID PRN Reason: CONSTIPATION Enoxaparin Sodium (Lovenox(*)) 40 mg SUBCUT Q24H [facility] Folic Acid (Folvite Tab*) 1 mg PO DAILY [facility] Lactulose (Lactulose*) 30 ml PO TID [facility] Lidocaine (Lidoderm 5% Patch*) 1 patch TRANSDERM DAILY [facility] Morphine Sulfate (Morphine Vial*) 2 mg IV Q2H PRN Reason: PAIN - MILD Multivitamins/Minerals (Theragran/Minerals Tab*) 1 tab PO DAILY [facility] Oxycodone HCl (Oxycontin(*)) 20 mg PO BID [facility] Oxycodone/Acetaminophen (Percocet 5/325 Tab*) 1 tab PO Q4H PRN Reason: PAIN Pharmacy Profile Note (Lidocaine Patch Remove*) 1 note N/A 2[address] [facility] Rifaximin (Xifaxan*) 550 mg PO BID [facility] Thiamine HCl (Vitamin B-1 Tab*) 100 mg PO BID [facility] Zinc Sulfate (Zinc-220 Cap*) 220 mg PO DAILY [facility] Lorazepam (Ativan Tab(*)) 1 mg PO BID [facility] Morphine Sulfate (Morphine Inj ((Syringe))*) 4 mg IV Q2H PRN Reason: PAIN - MILD Cefazolin Sodium/Dextrose (Kefzol 2 Gm Premix In Ors(*)) 2 gm in 50 mls @ 100 mls/hr IVPB Q8H [facility] Furosemide (Lasix Iv*) 20 mg IV ONCE ONE Stop: 03/17/18 05:11 Vital Signs: 03/17/18 03/17/18 08:00 11:00 Temperature 99.0 F Heart Rate 110 Respiratory 16 Rate Blood Pressure 107/73 (mmHg) O2 Sat by Pulse 96 Oximetry Exam: General: NAD, frail appearing. Laying in bed Neuro: Alert, but Lethargic Skin: 2 open areas to the sacrum/coccyx: Upper open area 1 cm x 1 cm x 0.1 cm. Lower open area 1 cm x 0.7 cm x 0.1 cm. Data: Labs: 03/09/18 03/16/18 03/17/18 18:39 18:40 06:55 WBC 15.3 H Hgb 10.2 L Hct 31 L Plt Count 282 Sodium Potassium Chloride Carbon Dioxide BUN Creatinine Glucose Albumin 1.7 L Prealbumin 6 L 03/17/18 06:55 WBC Hgb Hct Plt Count Sodium 134 L Potassium 3.5 Chloride 100 L Carbon Dioxide 27 BUN 12 Creatinine 0.35 L Glucose 99 Albumin Prealbumin Assessment/Plan: Ms. Valdez is a 48 yo female with PMH significant for colon cancer, alcohol abuse and severe progression of peripheral neuropathy with unknown etiology, who presented to the emergency room after a fall resulting in a right hip fracture. 1. Stage 2 pressure injury to sacrum/coccyx. Recommend barrier cream and frequent turning. If an Opifoam dressing is used for pressure reduction, ensure that it is kept clean and not soiled with stool. 2. Abrasions to bilateral posterior knees. Resolved 3. Severe malnutrition. Albumin is 1.5 and Pre-albumin is 6. This is evidenced by muscle wasting and weight loss. This will prevent wound healing. VTE PPX: Lovenox Diet: Regular diet Code Status: Full Code Disposition: Inpatient. Disposition per Primary Medicine team. Time Spent: 20 minutes was spent with the patient performing direct patient care , assessing wounds and providing wound care. Attending: Dr. Ludivina Rowan MD
[2018-03-17 14:10] LABS: Urine Appearance Cloudy; Urine Bacteria Absent (Absent); Urine Bilirubin Negative (Negative); Urine Blood 3+ (Negative); Urine Color Amber; Urine Glucose 1+(50 mg/dL) (Negative); Urine Ketones Trace (Negative); Urine Nitrite Positive (Negative); Urine Protein Negative (Negative); Urine Red Blood Cell 3+(>10/hpf) (Absent); Urine Specific Gravity 1.029 (1.010-1.030); Urine Urobilinogen Negative (Negative); Urine White Blood Cell 3+(>20/hpf) (Absent)
--- NOTE | 2018-03-17 14:25 | PN ---
Progress Note - Progress Note Date of Service: 03/17/18 SOAP: Subjective: []Pt seen and examined at bedside in ICU, her father is present. Her right hip is not painful at the moment. No complaints currently. Objective: []General: NAD RLE: Hip dressing changed both last night and this afternoon both times with mild light brown thin discharge on the dressing, no purlence and no active drainage. No erythema, no fluctance about the incisions. Thigh is soft, DF/PF intact, DP1+, capillary refill less than two seconds distally, sensation intact to light touch distally. Calves supple and nontender without erythema, edema or palpable cords Assessment: R IT fx POD 3 sp ORIF R femur Plan: TTWB RLE DVT prophy per hospitalist, geovannax Will need rehab placement, PMRU preferred Vital Signs Temp 100.0 F 03/17/18 13:50 Pulse 103 03/17/18 13:01 Resp 26 03/17/18 13:01 BP 105/77 03/17/18 13:00 Pulse Ox 100 03/17/18 13:01 Intake & Output 03/16/18 03/17/18 03/17/18 18:59 06:59 18:59 Intake Total 410 256 250 Output Total 804 926 8308 Balance 260 -319 -825 Weight 81 lb Intake: IV Fluids 26 50 ABX - CEFAZOLIN 50 IVF & IVPB 26 IVPB 50 IVF & IVPB 50 Oral 410 180 200 Output: Borrero [id number] Other: Estimated Void Small # Bowel Movements 2 1 Estimated Stool Amount Large Small Laboratory Last Values WBC 15.3 10^3/ul (3.5-10.8) H 03/17/18 06:55 RBC 2.98 10^6/ul (4.00-5.40) L 03/17/18 06:55 Hgb 10.2 g/dl (12.0-16.0) L 03/17/18 06:55 Hct 31 % (35-47) L 03/17/18 06:55 MCV 104 fL (80-97) H 03/17/18 06:55 MCH 34 pg (27-31) H 03/17/18 06:55 MCHC 33 g/dl (31-36) 03/17/18 06:55 RDW 24 % (10.5-15) H 03/17/18 06:55 Plt Count 282 10^3/ul (150-450) 03/17/18 06:55 MPV 9.0 fL (7.4-10.4) 03/17/18 06:55 Neut % (Auto) Not Reportable 03/17/18 06:55 Lymph % (Auto) Not Reportable 03/17/18 06:55 [place] % (Auto) Not Reportable 03/17/18 06:55 Eos % (Auto) Not Reportable 03/17/18 06:55 Baso % (Auto) Not Reportable 03/17/18 06:55 Absolute Neuts (auto) 13.3 10^3/ul (1.5-7.7) H 03/17/18 06:55 Absolute Lymphs (auto) Not Reportable 03/17/18 06:55 Absolute Monos (auto) Not Reportable 03/17/18 06:55 Absolute Eos (auto) Not Reportable 03/17/18 06:55 Absolute Basos (auto) Not Reportable 03/17/18 06:55 Absolute Nucleated RBC Not Reportable 03/17/18 06:55 Neutrophils % 91 % 03/17/18 06:55 Lymphocytes % 6 % 03/17/18 06:55 Monocytes % 2 % 03/17/18 06:55 Eosinophils % 1 % 03/17/18 06:55 Nucleated RBC % Not Reportable 03/17/18 06:55 Abs Neuts (Manual) 13.9 10^3/ul (1.5-7.7) H 03/17/18 06:55 Abs Lymphs (Manual) 0.918 10^3/ul (1.0-4.8) L 03/17/18 06:55 Abs Monocytes (Manual) 0.306 10^3/ul (0-0.8) 03/17/18 06:55 Absolute Eos (Manual) 0.153 10^3/ul (0-0.6) 03/17/18 06:55 Normal RBC Morphology Not Reportable 03/17/18 06:55 Polychromasia 1+ 03/17/18 06:55 Anisocytosis 2+ 03/17/18 06:55 Stomatocytes 1+ 03/17/18 06:55 Hem Pathologist Commnt 03/17/18 06:55 INR (Anticoag Therapy) 1.07 (0.77-1.02) H 03/14/18 04:42 APTT 33.0 seconds (26.0-36.3) 03/09/18 18:39 Sodium 134 mmol/L (135-145) L 03/17/18 06:55 Potassium 3.5 mmol/L (3.5-5.0) 03/17/18 06:55 Chloride 100 mmol/L (101-111) L 03/17/18 06:55 Carbon Dioxide 27 mmol/L (22-32) 03/17/18 06:55 Anion Gap 7 mmol/L (2-11) 03/17/18 06:55 BUN 12 mg/dL (6-24) 03/17/18 06:55 Creatinine 0.35 mg/dL (0.51-0.95) L 03/17/18 06:55 Est GFR ( Amer) 239.5 (>60) 03/17/18 06:55 Est GFR (Non-Af Amer) 197.9 (>60) 03/17/18 06:55 BUN/Creatinine Ratio 34.3 (8-20) H 03/17/18 06:55 Glucose 99 mg/dL (70-100) 03/17/18 06:55 Lactic Acid 1.4 mmol/L (0.5-2.0) 03/09/18 18:39 Calcium 7.3 mg/dL (8.6-10.3) L 03/17/18 06:55 Magnesium 2.1 mg/dL (1.9-2.7) 03/13/18 18:47 Iron < 17 ug/dL (50-212) L 03/16/18 06:01 TIBC 105 mcg/dL (250-450) L 03/16/18 06:01 % Saturation 16 % (15-55) 03/16/18 06:01 Unsat Iron Binding < 90 ug/dL 03/16/18 06:01 Transferrin < 75 mg/dL (203-362) L 03/16/18 06:01 Ferritin 290.7 ng/mL (11-307) 03/10/18 06:04 Total Bilirubin 0.60 mg/dL (0.2-1.0) 03/16/18 18:40 Direct Bilirubin 0.60 mg/dL (0.03-0.18) H 03/10/18 18:44 Indirect Bilirubin 0.7 mg/dL (0.3-1.0) 03/10/18 18:44 AST 34 U/L (13-39) 03/16/18 18:40 ALT 12 U/L (7-52) 03/16/18 18:40 Alkaline Phosphatase 194 U/L (34-104) H 03/16/18 18:40 Ammonia 86 mcmol/L (16-53) H 03/17/18 06:55 Troponin I 0.01 ng/mL (<0.04) 03/09/18 18:39 C-Reactive Protein 92.27 mg/L (<8.01) H 03/09/18 18:39 B-Natriuretic Peptide 316 pg/mL (<=100) H 03/09/18 18:39 Total Protein 4.2 g/dL (6.4-8.9) L 03/16/18 18:40 Albumin 1.7 g/dL (3.2-5.2) L 03/16/18 18:40 Globulin 2.5 g/dL (2-4) 03/16/18 18:40 Albumin/Globulin Ratio 0.7 (1-3) L 03/16/18 18:40 Prealbumin 6 mg/dL (18-38) L 03/09/18 18:39 Lipase 17 U/L (11.0-82.0) 03/09/18 18:39 Vitamin B12 > 1450 pg/mL (180-914) H 03/09/18 18:39 TSH 1.87 mcIU/mL (0.34-5.60) 03/09/18 18:39 Urine Color [place] 03/17/18 13:10 Urine Appearance Cloudy 03/17/18 13:10 Urine pH 5.0 (5-9) 03/17/18 13:10 Ur Specific [place] 1.029 (1.010-1.030) 03/17/18 13:10 Urine Protein Negative (Negative) 03/17/18 13:10 Urine Ketones Trace (Negative) A 03/17/18 13:10 Urine Blood 3+ (Negative) A 03/17/18 13:10 Urine Nitrate Positive (Negative) A 03/17/18 13:10 Urine Bilirubin Negative (Negative) 03/17/18 13:10 Urine Urobilinogen Negative (Negative) 03/17/18 13:10 Ur Leukocyte Esterase 2+ (Negative) A 03/17/18 13:10 Urine WBC (Auto) 3+(>20/hpf) (Absent) A 03/17/18 13:10 Urine RBC (Auto) 3+(>10/hpf) (Absent) A 03/17/18 13:10 Ur Transition Epith Cell Present (Absent) A 03/11/18 00:06 Urine Bacteria Absent (Absent) 03/17/18 13:10 Urine Yeast Present (Absent) A 03/17/18 13:10 Urine Glucose 1+(50 mg/dl) (Negative) A 03/17/18 13:10 Serum Alcohol < 10 mg/dL (<10) 03/09/18 18:39 Zinc 0.78 mcg/mL (0.66-1.10) 03/13/18 18:47 Blood Type B Positive 03/15/18 05:49 Antibody Screen Negative 03/15/18 05:49 Crossmatch See Detail 03/15/18 05:49
[2018-03-17] MEDS: Morphine VIAL* 4 MG/ML VIAL (1 ml vial) IV PRN ×3 (15:34→20:04)
[2018-03-17] MEDS: oxyCODONE/Acetamin 5/325 MG* TAB PO PRN ×2 (16:57→21:24)
[2018-03-17] MEDS: Ondansetron INJ* 2 MG/ML VIAL IV PRN (20:04)
[2018-03-17] MEDS: Lidocaine Patch REMOVE* 1 NOTE MISC SCH (21:04)
[2018-03-18] MEDS: Morphine VIAL* 4 MG/ML VIAL (1 ml vial) IV PRN ×8 (00:13→23:25)
[2018-03-18] MEDS: ceFAZolin 1 GM ADVAN(*) 1 GM in NS 0.9% 50 ML* 50 ML IVPB SCH ×2 (02:54→11:38)
[2018-03-18] MEDS: oxyCODONE/Acetamin 5/325 MG* TAB PO PRN ×3 (03:17→16:45)
[2018-03-18 05:54] LABS: ABS Basophils 0.1 10^3/ul (0-0.2); ABS Eosinophils 0.1 10^3/ul (0-0.6); ABS Lymphocytes 1.2 10^3/ul (1.0-4.8); ABS Monocytes 1.1 10^3/ul (0-0.8); ABS Neutrophils 8.7 10^3/ul (1.5-7.7); ABS Nucleated RBC 0 10^3/ul; Eosinophil % 0.8 %; Hematocrit 27 % (35-47); Hemoglobin 8.8 g/dl (12.0-16.0); Lymphocyte % 10.5 %; Mean Corpuscular HGB Conc 33 g/dl (31-36); Mean Corpuscular Hemoglobin 34 pg (27-31); Mean Corpuscular Volume 103 fL (80-97); Mean Platelet Volume 8.7 fL (7.4-10.4); Nucleated Red Blood Cells % 0.2; Platelet Count 307 10^3/ul (150-450); Red Blood Count 2.62 10^6/ul (4.00-5.40); Red Cell Distribution Width 23 % (10.5-15); White Blood Count 11.2 10^3/ul (3.5-10.8)
[2018-03-18 06:09] LABS: Anion Gap 4 mmol/L (2-11); Blood Urea Nitrogen 10 mg/dL (6-24); CO2 Carbon Dioxide 31 mmol/L (22-32); Calcium 7.2 mg/dL (8.6-10.3); Chloride 100 mmol/L (101-111); EGFR African American 286.1 (>60); EGFR Non-African American 236.5 (>60); Glucose 82 mg/dL (70-100); Magnesium 1.6 mg/dL (1.9-2.7); Potassium 2.9 mmol/L (3.5-5.0); Sodium 135 mmol/L (135-145)
[2018-03-18] MEDS ORDERED: Magnesium Sulf 4 GM/100 ML IV* 4,000 MG/100 ML BAG IVPB ONE (08:18)
[2018-03-18] MEDS ORDERED: Potassium Chlor TAB* 20 MEQ TAB.ER PO ONE (08:18)
[2018-03-18] MEDS: oxyCODONE SR TAB(*) 20 MG TAB.SR PO SCH ×2 (09:35→20:08)
[2018-03-18] MEDS: KCL 20 MEQ/100 ML IVPREMIX* 20 MEQ/100 ML BAG IV SCH ×2 (10:08→12:14)
[2018-03-18] MEDS: Lidocaine PATCH 5%* 1 PATCH TRANSDERM SCH (10:20)
[2018-03-18] MEDS: Clotrimazole 1% CREAM* 45 GM TOPICAL SCH ×2 (10:26→21:19)
[2018-03-18] MEDS: Enoxaparin(*) 40 MG/0.4 ML SYR SUBCUT SCH (10:27)
[2018-03-18] MEDS: Pantoprazole IV* 40 MG IV SCH (10:34)
[2018-03-18] MEDS: Zinc Sulfate CAP* 220 MG PO SCH (10:36)
[2018-03-18] MEDS: Multivitamins/Minerals TAB PO SCH (10:37)
[2018-03-18] MEDS: RiFAXimin* 550 MG TAB PO SCH ×2 (10:37→20:09)
[2018-03-18] MEDS: Thiamine TAB* 100 MG TAB PO SCH ×2 (10:37→20:09)
[2018-03-18] MEDS: Folic Acid TAB* 1 MG PO SCH (10:38)
[2018-03-18] MEDS ORDERED: Furosemide IV* 10 MG/ML 2 ML VIAL (20 MG) IV ONE (10:57)
--- NOTE | 2018-03-18 10:59 | PN ---
Subjective Date of Service: 03/18/18 Interval History: pt c/o pain in R post op leg, when she tried to roll in bed she hears a "snap". Family History: Unchanged from Admission Social History: Unchanged from Admission Past Medical History: Unchanged from Admission Objective Active Medications: Acetaminophen (Tylenol Tab*) 650 mg PO Q4H PRN PRN Reason: FEVER/PAIN Last Admin: 03/16/18 18:15 Dose: 650 mg Clotrimazole (Clotrimazole 1%*) 1 applic TOPICAL BID [facility] Last Admin: 03/18/18 10:26 Dose: 1 applic Docusate Sodium (Colace Cap*) 100 mg PO BID PRN PRN Reason: CONSTIPATION Enoxaparin Sodium (Lovenox(*)) 40 mg SUBCUT Q24H [facility] Last Admin: 03/18/18 10:27 Dose: 40 mg Folic Acid (Folvite Tab*) 1 mg PO DAILY [facility] Last Admin: 03/18/18 10:38 Dose: 1 mg Cefazolin Sodium 1 gm/ Sodium (Chloride) 50 mls @ 200 mls/hr IVPB Q8H [facility] Last Admin: 03/18/18 02:54 Dose: 200 mls/hr Magnesium Sulfate (Magnesium Sulf 4 Gm/100 Ml Iv*) 4,000 mg in 100 mls @ 33.333 mls/hr IVPB ONCE ONE Stop: 03/18/18 11:17 Last Admin: 03/18/18 10:08 Dose: 33.333 mls/hr Potassium Chloride (Potassium Chloride 20 Meq/100 Ml Ivpremix*) 20 meq in 100 mls @ 50 mls/hr IV Q2H [facility] Stop: 03/18/18 12:59 Last Admin: 03/18/18 10:08 Dose: 50 mls/hr Lactulose (Lactulose*) 30 ml PO TID [facility] Last Admin: 03/18/18 10:40 Dose: 30 ml Lidocaine (Lidoderm 5% Patch*) 1 patch TRANSDERM DAILY [facility] Last Admin: 03/18/18 10:20 Dose: 1 patch Morphine Sulfate (Morphine Vial*) 2 mg IV Q2H PRN PRN Reason: PAIN - MILD Last Admin: 03/18/18 10:16 Dose: 2 mg Multivitamins/Minerals (Theragran/Minerals Tab*) 1 tab PO DAILY [facility] Last Admin: 03/18/18 10:37 Dose: 1 tab Ondansetron HCl (Zofran Inj*) 4 mg IV Q4H PRN PRN Reason: NAUSEA/VOMITING Last Admin: 03/17/18 20:04 Dose: 4 mg Oxycodone HCl (Oxycontin(*)) 20 mg PO BID [facility] Last Admin: 03/18/18 09:35 Dose: 20 mg Oxycodone/Acetaminophen (Percocet 5/325 Tab*) 1 tab PO Q4H PRN PRN Reason: PAIN Last Admin: 03/18/18 03:17 Dose: 1 tab Pantoprazole Sodium (Protonix Iv*) 40 mg IV DAILY [facility] Last Admin: 03/18/18 10:34 Dose: 40 mg Pharmacy Profile Note (Lidocaine Patch Remove*) 1 note N/A 2100 [facility] Last Admin: 03/17/18 21:04 Dose: Not Given Rifaximin (Xifaxan*) 550 mg PO BID [facility] Last Admin: 03/18/18 10:37 Dose: 550 mg Thiamine HCl (Vitamin B-1 Tab*) 100 mg PO BID [facility] Last Admin: 03/18/18 10:37 Dose: 100 mg Zinc Sulfate (Zinc-220 Cap*) 220 mg PO DAILY [facility] Last Admin: 03/18/18 10:36 Dose: 220 mg Vital Signs - 8 hr 03/18/18 03/18/18 03/18/18 03:00 03:01 03:17 Temperature Pulse Rate 102 107 Respiratory 17 12 22 Rate Blood Pressure 102/71 (mmHg) O2 Sat by Pulse 90 88 Oximetry 03/18/18 03/18/18 03/18/18 03:21 03:53 04:00 Temperature 100.0 F Pulse Rate 101 Respiratory 20 25 Rate Blood Pressure 120/85 (mmHg) O2 Sat by Pulse 98 Oximetry 03/18/18 03/18/18 03/18/18 04:01 05:00 05:01 Temperature Pulse Rate 102 106 112 Respiratory 21 19 19 Rate Blood Pressure 101/79 (mmHg) O2 Sat by Pulse 97 97 98 Oximetry 03/18/18 03/18/18 03/18/18 06:00 06:01 07:00 Temperature Pulse Rate 111 108 98 Respiratory 17 17 20 Rate Blood Pressure 107/72 106/76 (mmHg) O2 Sat by Pulse 97 97 99 Oximetry 03/18/18 03/18/1803/18/19 07:01 08:00 08:01 Temperature 99.6 F Pulse Rate 96 106 109 Respiratory 17 26 24 Rate Blood Pressure 112/78 (mmHg) O2 Sat by Pulse 98 97 96 Oximetry 03/18/18 03/18/18 09:35 10:16 Temperature Pulse Rate Respiratory 18 28 Rate Blood Pressure (mmHg) O2 Sat by Pulse Oximetry Oxygen Devices in Use Now: High Flow Nasal Cannula Appearance: 48 yo F in NAD, AAOx3, emanciated appearing Eyes: No Scleral Icterus, PERRLA Ears/Nose/Mouth/Throat: NL Teeth, Lips, Gums, Mucous Membranes Moist Neck: NL Appearance and Movements; NL JVP, Trachea Midline Respiratory: Symmetrical Chest Expansion and Respiratory Effort, - - decreased breath sounds b/l bases with crackles noted in b/l mid lungs Cardiovascular: NL Sounds; No Murmurs; No JVD Abdominal: NL Sounds; No Tenderness; No Distention, No Hepatosplenomegaly Lymphatic: No Cervical Adenopathy Extremities: No Edema, No Clubbing, Cyanosis Skin: No Nodules or Sclerosis, - - R hip post op wounds sutured, no dehiscence.sacral decub stage 2 1 cm wirh surrounding area of stage 1 at 10 cm Neurological: Alert and Oriented x 3, - - unable to raise left post op leg off bed Result Diagrams: 03/18/18 05:10 03/18/18 05:10 Additional Lab and Data: Laboratory Tests 03/16/18 03/16/18 06:01 06:01 Iron < 17 L TIBC 105 L % Saturation 16 Unsat Iron Binding < 90 Transferrin < 75 L Ammonia 87 H Microbiology and Other Data: Microbiology 03/11/18 11:12 Blood Venous Aerobic Blood Culture - Final 03/11/18 11:12 Blood Venous Anaerobic Blood Culture - Final No Growth Day 5 No Growth Day 5 03/11/18 00:06 Urine Urine Culture - Final Pseudomonas Aeruginosa Escherichia Coli 03/13/18 05:29 Blood Venous Aerobic Blood Culture - Preliminary 03/13/18 05:29 Blood Venous Anaerobic Blood Culture - Preliminary No Growth Day 3 No Growth Day 3 03/13/18 05:18 Blood Venous Aerobic Blood Culture - Preliminary 03/13/18 05:18 Blood Venous Anaerobic Blood Culture - Preliminary No Growth Day 3 No Growth Day 3 03/12/18 07:02 Blood Venous Aerobic Blood Culture - Preliminary 03/12/18 07:02 Blood Venous Anaerobic Blood Culture - Preliminary No Growth Day 4 No Growth Day 4 03/12/18 05:12 Blood Venous Aerobic Blood Culture - Preliminary 03/12/18 05:12 Blood Venous Anaerobic Blood Culture - Preliminary No Growth Day 4 No Growth Day 4 Diagnostic Imaging: CXR: bibasilar infiltrates, possible pulm edema, bilateral lung nodules EKG Data: Sinus tachy, poor R-wave progression anterior Qs, possible old AMI Assess/Plan/Problems-Billing Assessment: 48 yo F with PMH rectal Ca s/p chemo radiation and surgery in 2007, followed by Dr. Harry with elevated tumor markers, EtOH use d/o, peripheral neuropathy, failure to thrive with current BMI 13 who presented s/p mechanical fall found to have R hip fracture. on 02/04/18 pt was dx with R distal radial bone fx and placed in arm sling - Patient Problems (1) Acute hypoxemic respiratory failure Comment: CTA with pulm edema and b/l pleural effusions, likely a consequence of fluid overlad post op in pt with with low oncotic pressures due to malnutrition and hypoalbuminemia Transferred to ICU on \\03/17/18 . On at 10 L today cont intermittent Lasix and f/u with daily weights and I/O's (2) Fracture of right hip Comment: -s/p R hip ORIF on 03/14/18 -Management by Dr. Lopez -expect will need SNF-level rehab due to poor performance status. (3) Alcoholic hepatitis (4) Anemia Comment: -anemia due to chronic disease and losses from surgery -had 3rd unit PRBC this hospital stay -labs consistent with anemia of chronic disease, but also likely iron deficient (5) Bacteremia Comment: MSSA on 03/13 bottles 03/09-may have been a contamination 03/11 cultures negative so far 03/12 cultures neg Was on Cefazolin, but due to Ucx positive for pseudomonas, will switch it to Zosyn. D/w ID -tx wtih IV antibiotics x 1 week. (6) Elevated liver enzymes Comment: chronic and likely related to etoh (7) Failure to thrive Comment: Multifactorial, onc and etoh use d/o -Does not want comfort care (8) Severe malnutrition Comment: Note low BMI and markedly low albumin. Albumin 1.7 prealbumin low Adds to poor prognostic indicators (9) History of rectal cancer Comment: evaluated by Dr. Harry on this admission due to concern of recurrence,? lesion in pancreas on u/s however not seen on CT.Eval by Dr Harry and see his note for full details.He does not think there is enough evidence of recurrence or malignancy or mets (10) Idiopathic progressive neuropathy Comment: Thought to be multifactorial and related to chemo, etoh, and autoimmune. On outpatient IVIG with Dr. Schwartz (11) UTI (urinary tract infection) Comment: Urine cx positive for E. coli (>100K) and Pseudomonas (75K), but repeat cx + for up to 100K opd pseudomonas. Zosyn started 03/18/18 Pt has a Borrero in place (12) DVT prophylaxis Comment: - lovenox Status and Disposition: likely will need STR once stable, inpatient for now
[2018-03-18] MEDS ORDERED: Piperacillin/Tazobac ADVAN(*) 3.375 GM in NS 0.9% 100 ML* 100 ML IVPB ONE (11:01)
[2018-03-18] MEDS ORDERED: Zosyn per Pharmacy* NOTE FOLLOW UP SCH (12:00)
--- NOTE | 2018-03-18 16:06 | PN ---
Progress Note - Progress Note Date of Service: 03/18/18 SOAP: Subjective: []Pt seen at bedside. She report a popping sensation of her hip, xrays were ordered. Denies worsened pain at this time. Denies CP, SOB, dizziness, nausea. Objective: []General: NAD RLE: Hip dressing changed, very mild thin green/brown discharge on the dressings , no purulence and no active drainage. No erythema, no fluctuance about the incisions. Thigh is soft, DF/PF intact, DP1+, capillary refill less than two seconds distally, sensation intact to light touch distally. Calves supple and nontender without erythema, edema or palpable cords Assessment: R IT fx POD 4 sp ORIF R femur Plan: TTWB RLE DVT prophy per hospitalist, susy Needs rehab when medically ready Transferred to room 415 Vital Signs Temp 99.3 F 03/18/18 12:00 Pulse 120 03/18/18 13:01 Resp 20 03/18/18 15:52 BP 123/79 03/18/18 14:00 Pulse Ox 94 03/18/18 13:01 Intake & Output 03/17/18 03/18/18 03/18/18 18:59 06:59 18:59 Intake Total 592 725 541 Output Total 2205 180 175 Balance -1613 545 366 Weight 113 lb 12.136 oz Intake: IV Fluids 50 205 101 ABX - CEFAZOLIN 50 60 IVF & IVPB 100 KCL 101 NS (0.9%) 45 IVPB 150 200 IVF & IVPB 150 KCL 100 Zosyn 100 Oral 542 370 240 Output: Urine 30 Borrero 2175 180 175 Other: # Bowel Movements 1 Estimated Stool Amount Small Laboratory Last Values WBC 11.2 10^3/ul (3.5-10.8) H 03/18/18 05:10 RBC 2.62 10^6/ul (4.00-5.40) L 03/18/18 05:10 Hgb 8.8 g/dl (12.0-16.0) L 03/18/18 05:10 Hct 27 % (35-47) L 03/18/18 05:10 MCV 103 fL (80-97) H 03/18/18 05:10 MCH 34 pg (27-31) H 03/18/18 05:10 MCHC 33 g/dl (31-36) 03/18/18 05:10 RDW 23 % (10.5-15) H 03/18/18 05:10 Plt Count 307 10^3/ul (150-450) 03/18/18 05:10 MPV 8.7 fL (7.4-10.4) 03/18/18 05:10 Neut % (Auto) 78.2 % 03/18/18 05:10 Lymph % (Auto) 10.5 % 03/18/18 05:10 [place] % (Auto) 9.7 % 03/18/18 05:10 Eos % (Auto) 0.8 % 03/18/18 05:10 Baso % (Auto) 0.8 % 03/18/18 05:10 Absolute Neuts (auto) 8.7 10^3/ul (1.5-7.7) H 03/18/18 05:10 Absolute Lymphs (auto) 1.2 10^3/ul (1.0-4.8) 03/18/18 05:10 Absolute Monos (auto) 1.1 10^3/ul (0-0.8) H 03/18/18 05:10 Absolute Eos (auto) 0.1 10^3/ul (0-0.6) 03/18/18 05:10 Absolute Basos (auto) 0.1 10^3/ul (0-0.2) 03/18/18 05:10 Absolute Nucleated RBC 0 10^3/ul 03/18/18 05:10 Neutrophils % 91 % 03/17/18 06:55 Lymphocytes % 6 % 03/17/18 06:55 Monocytes % 2 % 03/17/18 06:55 Eosinophils % 1 % 03/17/18 06:55 Nucleated RBC % 0.2 03/18/18 05:10 Abs Neuts (Manual) 13.9 10^3/ul (1.5-7.7) H 03/17/18 06:55 Abs Lymphs (Manual) 0.918 10^3/ul (1.0-4.8) L 03/17/18 06:55 Abs Monocytes (Manual) 0.306 10^3/ul (0-0.8) 03/17/18 06:55 Absolute Eos (Manual) 0.153 10^3/ul (0-0.6) 03/17/18 06:55 Normal RBC Morphology Not Reportable 03/17/18 06:55 Polychromasia 1+ 03/17/18 06:55 Anisocytosis 2+ 03/17/18 06:55 Stomatocytes 1+ 03/17/18 06:55 Hem Pathologist Commnt 03/17/18 06:55 INR (Anticoag Therapy) 1.07 (0.77-1.02) H 03/14/18 04:42 APTT 33.0 seconds (26.0-36.3) 03/09/18 18:39 Sodium 135 mmol/L (135-145) 03/18/18 05:10 Potassium 2.9 mmol/L (3.5-5.0) L 03/18/18 05:10 Chloride 100 mmol/L (101-111) L 03/18/18 05:10 Carbon Dioxide 31 mmol/L (22-32) 03/18/18 05:10 Anion Gap 4 mmol/L (2-11) 03/18/18 05:10 BUN 10 mg/dL (6-24) 03/18/18 05:10 Creatinine < 0.30 mg/dL (0.51-0.95) L 03/18/18 05:10 Est GFR ( Amer) 286.1 (>60) 03/18/18 05:10 Est GFR (Non-Af Amer) 236.5 (>60) 03/18/18 05:10 BUN/Creatinine Ratio 33.0 (8-20) H 03/18/18 05:10 Glucose 82 mg/dL (70-100) 03/18/18 05:10 Lactic Acid 1.4 mmol/L (0.5-2.0) 03/09/18 18:39 Calcium 7.2 mg/dL (8.6-10.3) L 03/18/18 05:10 Magnesium 1.6 mg/dL (1.9-2.7) L 03/18/18 05:10 Iron < 17 ug/dL (50-212) L 03/16/18 06:01 TIBC 105 mcg/dL (250-450) L 03/16/18 06:01 % Saturation 16 % (15-55) 03/16/18 06:01 Unsat Iron Binding < 90 ug/dL 03/16/18 06:01 Transferrin < 75 mg/dL (203-362) L 03/16/18 06:01 Ferritin 290.7 ng/mL (11-307) 03/10/18 06:04 Total Bilirubin 0.60 mg/dL (0.2-1.0) 03/16/18 18:40 Direct Bilirubin 0.60 mg/dL (0.03-0.18) H 03/10/18 18:44 Indirect Bilirubin 0.7 mg/dL (0.3-1.0) 03/10/18 18:44 AST 34 U/L (13-39) 03/16/18 18:40 ALT 12 U/L (7-52) 03/16/18 18:40 Alkaline Phosphatase 194 U/L (34-104) H 03/16/18 18:40 Ammonia 86 mcmol/L (16-53) H 03/17/18 06:55 Troponin I 0.01 ng/mL (<0.04) 03/09/18 18:39 C-Reactive Protein 92.27 mg/L (<8.01) H 03/09/18 18:39 B-Natriuretic Peptide 316 pg/mL (<=100) H 03/09/18 18:39 Total Protein 4.2 g/dL (6.4-8.9) L 03/16/18 18:40 Albumin 1.7 g/dL (3.2-5.2) L 03/16/18 18:40 Globulin 2.5 g/dL (2-4) 03/16/18 18:40 Albumin/Globulin Ratio 0.7 (1-3) L 03/16/18 18:40 Prealbumin 6 mg/dL (18-38) L 03/09/18 18:39 Lipase 17 U/L (11.0-82.0) 03/09/18 18:39 Vitamin B12 > 1450 pg/mL (180-914) H 03/09/18 18:39 TSH 1.87 mcIU/mL (0.34-5.60) 03/09/18 18:39 Urine Color [place] 03/17/18 13:10 Urine Appearance Cloudy 03/17/18 13:10 Urine pH 5.0 (5-9) 03/17/18 13:10 Ur Specific [place] 1.029 (1.010-1.030) 03/17/18 13:10 Urine Protein Negative (Negative) 03/17/18 13:10 Urine Ketones Trace (Negative) A 03/17/18 13:10 Urine Blood 3+ (Negative) A 03/17/18 13:10 Urine Nitrate Positive (Negative) A 03/17/18 13:10 Urine Bilirubin Negative (Negative) 03/17/18 13:10 Urine Urobilinogen Negative (Negative) 03/17/18 13:10 Ur Leukocyte Esterase 2+ (Negative) A 03/17/18 13:10 Urine WBC (Auto) 3+(>20/hpf) (Absent) A 03/17/18 13:10 Urine RBC (Auto) 3+(>10/hpf) (Absent) A 03/17/18 13:10 Ur Transition Epith Cell Present (Absent) A 03/11/18 00:06 Urine Bacteria Absent (Absent) 03/17/18 13:10 Urine Yeast Present (Absent) A 03/17/18 13:10 Urine Glucose 1+(50 mg/dl) (Negative) A 03/17/18 13:10 Serum Alcohol < 10 mg/dL (<10) 03/09/18 18:39 Zinc 0.78 mcg/mL (0.66-1.10) 03/13/18 18:47 Blood Type B Positive 03/15/18 05:49 Antibody Screen Negative 03/15/18 05:49 Crossmatch See Detail 03/15/18 05:49
[2018-03-18] MEDS: ZOSYN 3.375 GM Q8H per EXTENDED INFUSION IVPB SCH ×2 (16:45)
--- NOTE | 2018-03-18 20:13 | PN ---
Progress Note - Progress Note Date of Service: 03/18/18 Note: Long conversation with pt, her and daughter. Pt has pain when eating and after eating which has been an ongoing problem since her rectal carcinoma. She has been seeing Dr Colón spoke with hospitalist Dr Albarado who will consult her in the am. If possible Dr Colón can give opinion on her liver status. Also of note pt is on chronic pain meds Oxycontin 10mg po BID, percocet 5mg 1-2 pills po q4 hrs and ativan 1mg po BID. Her pain meds have been adjusted but she is still having pain, maybe Dr. Harry office can confirm meds so she can go back on her usual doses. Did speak with family about low albumin causing issues with CHF , wound healing and acsites. Talked a little about the issue of intubation if CHF gets worse not sure she wants to be intubated but not able to make decision at this point.
[2018-03-18] MEDS: Lidocaine Patch REMOVE* 1 NOTE MISC SCH (20:25)
[2018-03-19] MEDS: ZOSYN 3.375 GM Q8H per EXTENDED INFUSION IVPB SCH ×6 (00:41→21:18)
[2018-03-19] MEDS: Morphine VIAL* 4 MG/ML VIAL (1 ml vial) IV PRN ×5 (01:48→15:25)
[2018-03-19 07:01] LABS: Hematocrit 27 % (35-47); Hemoglobin 9.1 g/dl (12.0-16.0); Mean Corpuscular HGB Conc 34 g/dl (31-36); Mean Corpuscular Hemoglobin 35 pg (27-31); Mean Corpuscular Volume 103 fL (80-97); Mean Platelet Volume 8.3 fL (7.4-10.4); Platelet Count 366 10^3/ul (150-450); Red Blood Count 2.59 10^6/ul (4.00-5.40); Red Cell Distribution Width 23 % (10.5-15)
[2018-03-19 07:05] LABS: Anion Gap 3 mmol/L (2-11); Blood Urea Nitrogen 8 mg/dL (6-24); CO2 Carbon Dioxide 31 mmol/L (22-32); Calcium 7.2 mg/dL (8.6-10.3); Chloride 101 mmol/L (101-111); EGFR African American 286.1 (>60); EGFR Non-African American 236.5 (>60); Glucose 98 mg/dL (70-100); Potassium 4.1 mmol/L (3.5-5.0); Sodium 135 mmol/L (135-145)
[2018-03-19] MEDS ORDERED: Furosemide IV* 10 MG/ML VIAL (40 MG) IV ONE (07:53)
[2018-03-19] MEDS: Zinc Sulfate CAP* 220 MG PO SCH (08:13)
[2018-03-19] MEDS: Thiamine TAB* 100 MG TAB PO SCH (08:13)
[2018-03-19] MEDS: oxyCODONE SR TAB(*) 20 MG TAB.SR PO SCH (08:13)
[2018-03-19] MEDS: Multivitamins/Minerals TAB PO SCH (08:13)
[2018-03-19] MEDS: RiFAXimin* 550 MG TAB PO SCH (08:13)
[2018-03-19] MEDS: Folic Acid TAB* 1 MG PO SCH (08:13)
[2018-03-19] MEDS: Enoxaparin(*) 40 MG/0.4 ML SYR SUBCUT SCH (08:13)
[2018-03-19] MEDS: Clotrimazole 1% CREAM* 45 GM TOPICAL SCH ×2 (08:13→23:08)
--- NOTE | 2018-03-19 08:39 | PN ---
Progress Note - Progress Note Date of Service: 03/19/18 SOAP: Subjective: 48 y/o female s/p R hip gamma nailing 2/[address] Lopez. VSS, afebrile overnight. Asking appropriate questions although repeating questions and seems confused at times. pain controlled. Objective: General- Well appearing, NAD, AO resting in bed comfortably MSK-R LE- negative homans sign. Dressings removed from R leg, + drainage from 2 prox incisions, clear/ no odor, serous. No drainage from distal incision. redressed, no erythema, induration, non-tender. Vital Signs Temp 98.8 F 03/19/18 03:21 Pulse 116 03/19/18 03:21 Resp 18 03/19/18 08:14 BP 108/71 03/19/18 03:21 Pulse Ox 98 03/19/18 03:30 Intake & Output 03/18/18 03/19/18 03/19/18 18:59 06:59 18:59 Intake Total 541 Output Total 175 Balance 366 Intake: IV Fluids 101 KCL 101 IVPB 200 KCL 100 Zosyn 100 Oral 240 Output: Borrero 175 Other: Estimated Void Small # Bowel Movements 1 Estimated Stool Amount Medium # Voids 1 Assessment: - Stable 48 y/o female s/p R hip gamma nailing 2/[address] Lopez. - Multiple Co-morbidities including rectal CA. Plan: - DVT prophylaxis- per hospitalist lovenox - Continue PT/ OT - H&H - stable - post-op IV ABX - completed - UTI- Zosyn - Hypokalemia- resolved Acetaminophen (Tylenol Tab*) 650 mg PO Q4H PRN PRN Reason: FEVER/PAIN Last Admin: 03/16/18 18:15 Dose: 650 mg Clotrimazole (Clotrimazole 1%*) 1 applic TOPICAL BID [facility] Last Admin: 03/19/18 08:13 Dose: 1 applic Docusate Sodium (Colace Cap*) 100 mg PO BID PRN PRN Reason: CONSTIPATION Enoxaparin Sodium (Lovenox(*)) 40 mg SUBCUT Q24H [facility] Last Admin: 03/19/18 08:13 Dose: 40 mg Folic Acid (Folvite Tab*) 1 mg PO DAILY [facility] Last Admin: 03/19/18 08:13 Dose: 1 mg Piperacillin Sod/Tazobactam (Sod 3.375 gm/ Sodium Chloride) 100 mls @ 25 mls/ hr IVPB Q8H [facility] Last Admin: 03/19/18 08:12 Dose: 25 mls/hr Lidocaine (Lidoderm 5% Patch*) 1 patch TRANSDERM DAILY [facility] Last Admin: 03/19/18 10:50 Dose: Not Given Morphine Sulfate (Morphine Vial*) 2 mg IV Q2H PRN PRN Reason: PAIN - MILD Last Admin: 03/19/18 10:49 Dose: 2 mg Multivitamins/Minerals (Theragran/Minerals Tab*) 1 tab PO DAILY [facility] Last Admin: 03/19/18 08:13 Dose: 1 tab Ondansetron HCl (Zofran Inj*) 4 mg IV Q4H PRN PRN Reason: NAUSEA/VOMITING Last Admin: 03/17/18 20:04 Dose: 4 mg Oxycodone HCl (Oxycontin(*)) 20 mg PO BID [facility] Last Admin: 03/19/18 08:13 Dose: 20 mg Oxycodone HCl (Roxycodone Tab*) 10 mg PO Q4H PRN PRN Reason: PAIN Last Admin: 03/19/18 10:43 Dose: 10 mg Pantoprazole Sodium (Protonix Tab*) 40 mg PO DAILY [facility] Last Admin: 03/19/18 08:13 Dose: 40 mg Pharmacy Consult (Zosyn Per Pharmacy*) 1 note FOLLOW UP .ZOSYN PER PHARMACY [facility] Pharmacy Profile Note (Lidocaine Patch Remove*) 1 note N/A 2100 [facility] Last Admin: 03/18/18 20:25 Dose: 1 note Rifaximin (Xifaxan*) 550 mg PO BID [facility] Last Admin: 03/19/18 08:13 Dose: 550 mg Thiamine HCl (Vitamin B-1 Tab*) 100 mg PO BID [facility] Last Admin: 03/19/18 08:13 Dose: 100 mg Zinc Sulfate (Zinc-220 Cap*) 220 mg PO DAILY [facility] Last Admin: 03/19/18 08:13 Dose: 220 mg
[2018-03-19 09:00] LABS: Magnesium 2.1 mg/dL (1.9-2.7)
[2018-03-19] MEDS ORDERED: Lactulose* 15 ML UDC PO SCH (09:00)
[2018-03-19] MEDS ORDERED: Pantoprazole TAB * 40 MG TAB PO SCH (09:00)
[2018-03-19] MEDS: oxyCODONE TAB* 5 MG TAB PO PRN (10:43)
[2018-03-19] MEDS: Lidocaine PATCH 5%* 1 PATCH TRANSDERM SCH (10:50)
[2018-03-19] MEDS ORDERED: Iohexol 300* (CONTRAST) 10 ML SDV IV ONE (13:51)
[2018-03-19] MEDS ORDERED: NS 0.9% 1000 ML** 1,000 ML IV SCH ×2 (15:15→21:22)
--- NOTE | 2018-03-19 15:38 | PN ---
Subjective Date of Service: 03/19/18 Interval History: Pt was c/o this AM of exacerbation of her chronic abd pain. She has had abd pain in the past several years, sometimes exacerbated by eating. Today pt had been unable to eat anything sine the pain that was much worse after eating a hamburger last night. Family History: Unchanged from Admission Social History: Unchanged from Admission Past Medical History: Unchanged from Admission Objective Active Medications: Clotrimazole (Clotrimazole 1%*) 1 applic TOPICAL BID [facility] Last Admin: 03/19/18 08:13 Dose: 1 applic Piperacillin Sod/Tazobactam (Sod 3.375 gm/ Sodium Chloride) 100 mls @ 25 mls/ hr IVPB Q8H [facility] Last Admin: 03/19/18 08:12 Dose: 25 mls/hr Sodium Chloride (Ns 0.9% 1000 Ml) 1,000 mls @ 125 mls/hr IV PER RATE [facility] Lidocaine (Lidoderm 5% Patch*) 1 patch TRANSDERM DAILY [facility] Last Admin: 03/19/18 10:50 Dose: Not Given Morphine Sulfate (Morphine Vial*) 2 mg IV Q2H PRN PRN Reason: PAIN - MILD Last Admin: 03/19/18 15:25 Dose: 2 mg Ondansetron HCl (Zofran Inj*) 4 mg IV Q4H PRN PRN Reason: NAUSEA/VOMITING Last Admin: 03/17/18 20:04 Dose: 4 mg Oxycodone HCl (Roxycodone Tab*) 10 mg PO Q4H PRN PRN Reason: PAIN Last Admin: 03/19/18 10:43 Dose: 10 mg Pantoprazole Sodium (Protonix Iv*) 40 mg IV DAILY [facility] Pharmacy Consult (Zosyn Per Pharmacy*) 1 note FOLLOW UP .ZOSYN PER PHARMACY [facility] Pharmacy Profile Note (Lidocaine Patch Remove*) 1 note N/A 2100 [facility] Last Admin: 03/18/18 20:25 Dose: 1 note Vital Signs - 8 hr 03/19/18 03/19/18 03/19/18 08:13 08:14 09:39 Temperature Pulse Rate Respiratory 18 18 16 Rate Blood Pressure (mmHg) O2 Sat by Pulse Oximetry 03/19/18 03/19/18 03/19/18 10:43 10:49 11:58 Temperature 98.7 F Pulse Rate 115 Respiratory 19 18 18 Rate Blood Pressure 103/71 (mmHg) O2 Sat by Pulse 97 Oximetry 03/19/18 03/19/18 03/19/18 12:16 12:24 15:25 Temperature Pulse Rate Respiratory 19 18 18 Rate Blood Pressure (mmHg) O2 Sat by Pulse Oximetry Oxygen Devices in Use Now: Nasal Cannula Appearance: 48 yo F, emanciated, in NAD, AAOx3 Eyes: No Scleral Icterus, PERRLA Ears/Nose/Mouth/Throat: NL Teeth, Lips, Gums, Mucous Membranes Moist Neck: NL Appearance and Movements; NL JVP, Trachea Midline Respiratory: Symmetrical Chest Expansion and Respiratory Effort, Clear to Auscultation Cardiovascular: NL Sounds; No Murmurs; No JVD, RRR, No Edema Abdominal: - - distended, tympanic, diffusely tender, no rebound, +guarding, BS high pitched and hypoactive Extremities: No Edema, No Clubbing, Cyanosis Skin: No Nodules or Sclerosis, - - R his post op incisions sutured, no dehiscence Neurological: Alert and Oriented x 3, NL Muscle Strength and Tone Result Diagrams: 03/19/18 06:13 03/19/18 06:13 Additional Lab and Data: Laboratory Tests 03/16/18 03/16/18 06:01 06:01 Iron < 17 L TIBC 105 L % Saturation 16 Unsat Iron Binding < 90 Transferrin < 75 L Ammonia 87 H Microbiology and Other Data: Microbiology 03/11/18 11:12 Blood Venous Aerobic Blood Culture - Final 03/11/18 11:12 Blood Venous Anaerobic Blood Culture - Final No Growth Day 5 No Growth Day 5 03/11/18 00:06 Urine Urine Culture - Final Pseudomonas Aeruginosa Escherichia Coli 03/13/18 05:29 Blood Venous Aerobic Blood Culture - Preliminary 03/13/18 05:29 Blood Venous Anaerobic Blood Culture - Preliminary No Growth Day 3 No Growth Day 3 03/13/18 05:18 Blood Venous Aerobic Blood Culture - Preliminary 03/13/18 05:18 Blood Venous Anaerobic Blood Culture - Preliminary No Growth Day 3 No Growth Day 3 03/12/18 07:02 Blood Venous Aerobic Blood Culture - Preliminary 03/12/18 07:02 Blood Venous Anaerobic Blood Culture - Preliminary No Growth Day 4 No Growth Day 4 03/12/18 05:12 Blood Venous Aerobic Blood Culture - Preliminary 03/12/18 05:12 Blood Venous Anaerobic Blood Culture - Preliminary No Growth Day 4 No Growth Day 4 Diagnostic Imaging: CXR: bibasilar infiltrates, possible pulm edema, bilateral lung nodules EKG Data: Sinus tachy, poor R-wave progression anterior Qs, possible old AMI Assess/Plan/Problems-Billing Assessment: 48 yo F with PMH rectal Ca s/p chemo radiation and surgery in 2007, followed by Dr. Harry with elevated tumor markers, EtOH use d/o, peripheral neuropathy, failure to thrive with current BMI 13 who presented s/p mechanical fall found to have R hip fracture. on 02/04/18 pt was dx with R distal radial bone fx and placed in arm sling - Patient Problems (1) Abdominal pain Comment: Just received abd CT report that pt likely has perforation. consulted and case d/w surgery. Pt will likely go to emergent OR soon. All PO meds held. Pt ius started on IV PPI. she and her are aware and agree to surgery. (2) Acute hypoxemic respiratory failure Comment: CTA with pulm edema and b/l pleural effusions, likely a consequence of fluid overlad post op in pt with with low oncotic pressures due to malnutrition and hypoalbuminemia Transferred to ICU on 03/17/18 . On 02 at 10 L today Hold intermittent Lasix for OR and f/u with daily weights and I/O's (3) Fracture of right hip Comment: -s/p R hip ORIF on 03/14/18 -Management by Dr. Lopez -expect will need SNF-level rehab due to poor performance status. (4) Alcoholic hepatitis Comment: -Ammonia levels falling on lactulose and Xifaxan (held for OR) -has had no alcohol for weeks (5) Anemia Comment: -anemia due to chronic disease and losses from surgery -had 3 units PRBC this hospital stay -labs consistent with anemia of chronic disease, but also likely iron deficient (6) Bacteremia Comment: MSSA on 03/13 bottles 03/09-may have been a contamination 03/11 cultures negative so far 03/12 cultures neg Was on Cefazolin, but due to Ucx positive for pseudomonas, switched it to Zosyn. D/w ID -tx with IV antibiotics x 1 week. (7) Elevated liver enzymes Comment: chronic and likely related to etoh (8) Failure to thrive Comment: Multifactorial, onc and etoh use d/o -Does not want comfort care (9) Severe malnutrition Comment: Note low BMI and markedly low albumin. Albumin 1.7 prealbumin low Adds to poor prognostic indicators (10) History of rectal cancer Comment: evaluated by Dr. Harry on this admission due to concern of recurrence,? lesion in pancreas on u/s however not seen on CT.Eval by Dr Harry and see his note for full details.He does not think there is enough evidence of recurrence or malignancy or mets (11) Idiopathic progressive neuropathy Comment: Thought to be multifactorial and related to chemo, etoh, and autoimmune. On outpatient IVIG with Dr. Schwartz (12) UTI (urinary tract infection) Comment: Urine cx positive for E. coli (>100K) and Pseudomonas (75K), but repeat cx + for up to 100K opd pseudomonas. Zosyn started 03/18/18 Pt has a Borrero in place (13) Pancreatitis, chronic Comment: As per d/w DR. Yaneth Mott, pt will require Creon once able to take PO (14) DVT prophylaxis Comment: - lovenox held preop Status and Disposition: likely will need STR once stable, inpatient for now
[2018-03-19] MEDS ORDERED: fentaNYL* 50 MCG/ML 5 ML VIAL (250 MCG VIAL) ONE ×4 (15:42→20:04)
[2018-03-19] MEDS ORDERED: Midazolam* 1 MG/ML 10 ML VIAL (10 MG) ONE (15:42)
[2018-03-19] MEDS ORDERED: Atracurium* 10 MG/ML 10 ML VIAL ONE (15:42)
[2018-03-19] MEDS ORDERED: KETAMINE HCL* 50 MG/ML 10 ML VIAL ONE (15:42)
[2018-03-19] MEDS ORDERED: Morphine INJ* 2 MG/ML 1 ML SYRINGE (TWO MG - NEW SYRINGE VERSION) IV PRN (15:55)
[2018-03-19] MEDS ORDERED: Morphine VIAL* 4 MG/ML VIAL (1 ml vial) ONE (15:57)
[2018-03-19] MEDS: Pantoprazole IV* 40 MG IV SCH (16:02)
[2018-03-19] MEDS ORDERED: Hetastarch 6% in NS* 500 ML IV ONE (16:20)
[2018-03-19] MEDS ORDERED: Bupivacaine 0.25% W/EPI* 10 ML SDV ONE (16:23)
--- NOTE | 2018-03-19 16:24 | PN ---
Progress Note - Progress Note Date of Service: 03/19/18 Note: Surgery Progress Note Patient is a 48 yo F with a history of rectal cancer (approximately 2007 she underwent a laparoscopic LAR, neoadjuvant chemoradiation, adjuvant chemotherapy ) that was complicated by multiple bowel obstructions that were managed conservatively. She has a history as well of chronic alcohol abuse and pancreatitis and fell this past weekend, which required her to be hospitalized. She underwent ORIF of a right hip fracture by Dr. Lopez on 03/14/18, and was in the ICU with volume overload and recently was sent to the floor. Per the patient and and hospitalist, Dr. Temple, she developed severe diffuse abdominal pain last night and this morning underwent a CT abd/pelvis that showed large amount of free air. She has been afebrile, tachycardic and had a normal WBC this morning. On exam she has generalized peritonitis and is tender in all 4 quadrants. Informed consent was obtained for an emergency dx laparoscopy, possible exploratory laparotomy, possible bowel resection, possible ostomy. I explained to the patient and spoke to her over the phone that the differential includes bowel perforation, stomach perforation, duodenal perforation. I explained the risks, which include but are not limited to bleeding, wound or intraabdominal infection, injury to nearby anatomic structures, poor wound healing, prolonged hospitalization, prolonged intubation, possible anastomotic leak, possible . I informed both her and her that surgery is extremely high risk given the acuity of the perforation, her recent hip fracture , compromised respiratory status and overall deconditioning and malnourishment from her chronic pancreatitis. They understand these things and wish to proceed.
[2018-03-19] MEDS ORDERED: Midazolam* 1 MG/ML 5 ML VIAL (5 MG) ONE ×2 (19:39→19:59)
[2018-03-19] MEDS ORDERED: Phenylephrine INJ* 10 MG/ML 1 ML VIAL (10 MG) ONE (20:00)
[2018-03-19] MEDS ORDERED: Norepinephrine VIAL* 1 MG/ML 4 ML VIAL ONE (20:00)
[2018-03-19] MEDS ORDERED: Propofol* 100 ML ONE (20:38)
[2018-03-19] MEDS ORDERED: LORazepam TAB(*) 1 MG PO SCH (21:00)
[2018-03-19] MEDS: Propofol* 100 ML IV SCH (21:33)
[2018-03-19] MEDS ORDERED: Albuterol 2.5 MG/3 ML NEB.SOL* (0.083%) INH PRN (21:37)
--- NOTE | 2018-03-19 21:41 | PN ---
Progress Note - Progress Note Date of Service: 03/19/18 Note: Consultation Note -- Critical Care Requesting Physician: Dr Dione Lee Reason for consult: post op colectomy, perforation Limitations in history/physical: intubated Date of consult: 03/19/2017 HPI: 48y F w/pmhx of Rectal Ca s/p chemorad and chemo-adj, s/p surgery 2007, ETOH abuse, peripheral neuropathy, chronic opiate use, failure to thrive; presented initially with a mechanical fall and Right hip fracture. She is s/p Right hip ORIF 03/14/2018. She also had a Righit distal radial bone fx 01/2018. She was recently in ICU for volume overload and hypoxic respiratory failure requiring hiflow therapy. She was just moved out of ICU today, when she developed acute abd pain on the medical floor. A CT abd/pelvis demonstrated free intraperitoneal air. Surgery consult called and she was takne to the OR. -She is s/p Exploratory laporatomy, with Right hemicolectomy and end-end anastamosis -EBL uknown, minimal as per surgeon -Found to have pus along the ceacum and in the gutters, unknwon where, no sig fecal contamination, serosal tear and perforation in ceacum noted+. -Exploration in rectal puch noted some fibrinous material but no leak or pus. Colectomy and end-end anastamosis+ -1 EMELIA drain in pelvis/rectal, 1 EMELIA along right anastaomotic site currently intbuated, still recovering from sedation. BP stable, off levophed. Surgical site intact. ROS: limited due to intubation PMHx: Rectal Ca s/p chemorad and chemo-adj, s/p surgery 2007, ETOH abuse, peripheral neuropathy, chronic opiate use, failure to thrive, Right radial fracture, b12 deficiency PSHx: rectual surgery for rectal Ca Family History: noncontributory Social History: Alcohol-yes, Smoking-none, Drug use-none Allergies: Allergies Allergy/AdvReac Type Severity Reaction Status Date / Time ciprofloxacin AdvReac Mild Diarrhea Verified 02/11/18 15:29 Home Medications: LORazepam TAB(*) [Ativan 1 MG TAB (*)] 1 mg PO BID MDD 2 mg 12/03/11 [History Confirmed 03/09/18] oxyCODONE/Acetamin 5/325 MG* [Percocet 5/325 TAB*] 1 tab PO TID PRN MDD 6 tabs 12/03/11 [History Confirmed 03/09/18] Calcium Citrate/Vitamin D3 [Calcium Citrate-Vit D3 Caplet] 1 tab PO DAILY [History Confirmed 03/09/18] Famotidine TAB* [Pepcid 20 MG TAB*] 40 mg PO DAILY 01/11/18 [History Confirmed 03/09/18] Folic Acid TAB* [Folvite TAB*] 1 mg PO DAILY 01/11/18 [History Confirmed ] Multivitamins/Minerals TAB* [Theragran/minerals TAB*] 1 tab PO DAILY 01/11/18 [ History Confirmed 03/09/18] Thiamine TAB* [Vitamin B-1 TAB 100 MG*] 100 mg PO BID 01/11/18 [History Confirmed 03/09/18] oxyCODONE SR TAB(*) [Oxycontin 10 mg (*)] 10 mg PO BID MDD 20 mg 01/11/18 [ History Confirmed 03/09/18] Loperamide CAP* [Imodium CAP*] 2 mg PO .SEE DIRECTIONS PRN cap 01/15/18 [Rx Confirmed 03/09/18] Tele: NSR Vitals: Vital Signs Temp 98.5 F 03/19/18 15:25 Pulse 122 03/19/18 16:37 Resp 18 03/19/18 16:02 BP 106/77 03/19/18 15:25 Pulse Ox 91 03/19/18 16:37 Intake & Output 03/19/18 03/19/18 03/20/18 06:59 18:59 06:59 Intake Total 680 Output Total 3400 Balance -2720 Intake: Oral 680 Output: Hernandez 3400 Other: Estimated Void Small Date of Last Bowel [id number] Movement # Bowel Movements 1 1 Estimated Stool Amount Medium Medium # Voids 1 O2/Vent: AC 14/420/+5/70% Infusions: propofol, NS 100 Current Medications: Clotrimazole (Clotrimazole 1%*) 1 applic TOPICAL BID [facility] Last Admin: 03/19/18 08:13 Dose: 1 applic Fentanyl Citrate (Fentanyl*) 25 mcg IV SLOW PU Q1H PRN PRN Reason: PAIN - MODERATE Piperacillin Sod/Tazobactam (Sod 3.375 gm/ Sodium Chloride) 100 mls @ 25 mls/ hr IVPB Q8H [facility] Last Admin: 03/19/18 21:18 Dose: Not Given Propofol (Diprivan*) 100 mls @ 3.096 mls/hr IV .(Initial Rate) [facility]; Protocol Sodium Chloride (Ns 0.9% 1000 Ml) 1,000 mls @ 100 mls/hr IV PER RATE [facility] Lidocaine (Lidoderm 5% Patch*) 1 patch TRANSDERM DAILY [facility] Last Admin: 03/19/18 10:50 Dose: Not Given Morphine Sulfate (Morphine Inj ((Syringe))*) 2 mg IV Q1H PRN PRN Reason: PAIN Last Admin: 03/19/18 16:02 Dose: 2 mg Ondansetron HCl (Zofran Inj*) 4 mg IV Q4H PRN PRN Reason: NAUSEA/VOMITING Last Admin: 03/17/18 20:04 Dose: 4 mg Oxycodone HCl (Roxycodone Tab*) 10 mg PO Q4H PRN PRN Reason: PAIN Last Admin: 03/19/18 10:43 Dose: 10 mg Pantoprazole Sodium (Protonix Iv*) 40 mg IV DAILY [facility] Last Admin: 03/19/18 16:02 Dose: Not Given Pharmacy Consult (Zosyn Per Pharmacy*) 1 note FOLLOW UP .ZOSYN PER PHARMACY [facility] Pharmacy Profile Note (Lidocaine Patch Remove*) 1 note N/A 2100 [facility] Last Admin: 03/18/18 20:25 Dose: 1 note Physical Exam: General: intubated, still sedated, cachetic appearing Head: normocephalic, atraumatic HEENT: no pallor, no icterus, moist mucous membranes Neck: soft, supple, no jvd CVS: normal rate, regular, no murmur Resp: bilateral air entry, no rhales/wheeze/rhonchi Abdomen: soft, midline surgical scare+, nondistended Ext: pulses+, warm, no edema Skin: intact Neuro: intubated, sedated Labs: Laboratory Results - last 24 hr 03/19/18 03/19/18 03/19/18 06:13 06:13 06:13 WBC 9.0 RBC 2.59 L Hgb 9.1 L Hct 27 L MCV 103 H MCH 35 H MCHC 34 RDW 23 H Plt Count 366 MPV 8.3 Sodium 135 Potassium 4.1 Chloride 101 Carbon Dioxide 31 Anion Gap 3 BUN 8 Creatinine < 0.30 L Est GFR ( Amer) 286.1 Est GFR (Non-Af Amer) 236.5 BUN/Creatinine Ratio 26.0 H Glucose 98 Calcium 7.2 L Magnesium 2.1 Lipase Blood Type B Positive Antibody Screen Negative Crossmatch See Detail 03/19/18 13:22 WBC RBC Hgb Hct MCV MCH MCHC RDW Plt Count MPV Sodium Potassium Chloride Carbon Dioxide Anion Gap BUN Creatinine Est GFR ( Amer) Est GFR (Non-Af Amer) BUN/Creatinine Ratio Glucose Calcium Magnesium Lipase < 10 L Blood Type Antibody Screen Crossmatch Imaging: CT abd/pelvis 03/19 - free intraperitoneal air Assessment: 48y F w/pmhx of Rectal Ca s/p chemorad and chemo-adj, s/p surgery 2007, ETOH abuse, peripheral neuropathy, chronic opiate use, failure to thrive; presented initially with a mechanical fall and Right hip fracture. She is s/p Right hip ORIF 03/14/2018. She also had a Righit distal radial bone fx 01/2018. She was recently in ICU for volume overload and hypoxic respiratory failure requiring hiflow therapy. She was just moved out of ICU today, when she developed acute abd pain on the medical floor. A CT abd/pelvis demonstrated free intraperitoneal air. Surgery consult called and she was takne to the OR. -Cecal perforation ; s/p Exploratory laporatomy, with Right hemicolectomy and end-end anastamosis - 03/19 -Peritonitis -Acute hypoxic respiratory failure -Pulmonary congestion -Anemia -Right hip fracture s/p Right ORIF 03/14 -E.coli and Pseudomonas UTI -Failure to thrive -ETOH abuse Plan: Neuro- maintain propofol for sedation. sedation weaning in AM. then neurochecks. Asp prec. Delirium prec. CVS- BP stable. Off levophed. Cont NS 100cc/hr; re-eval in AM. May require additional IV lasix for diuresis. IV abx for UTI/Peritonitis. Resp- intubated, on 70% AC. Check ABG now, CXR now. Bronchodilators PRN. -plan for AM sedation holiday and vent weaning ID- afebrile. wbc 9. UTi with E.coli and Psedumonas+ -now with cecal perforation and pus in abd+, s/p washout. Cont Zosyn for Abd coverage. Pendign intraop cultures. GI- NPO. Wound care to surgical sites. Monitor EMELIA outputs. NGT to low intermittent suction -plan for PPN or TPN over the weekend. Jose G the gladys may not come back completely to functional status but will need nutrition. If fxnal, then may be able to go back to enteral diet. -watchful waiting; discussed case with surgeon Renal- Cr okay. K okay. No acidosis. making urine. hernandez+ Heme- anemia, hg stable 9s. for 1 more PRBC from OR. plt okay Endo- fingerstick prn Musculsk- pressure ulcer prophylaxis. Bedrest. Wounds- none Nutrition- NPO for now ] DVT prophylaxis:SCD GI prophylaxis: PPI Central Line: no Arterial Line: yes Hernandez Cathetor: yes Disposition: Patient requires Critical Care/ICU for post perforation laparotomy , intubated state Patient Clinical Status: guarded, critical Code Status: full code Total Critical Care time is 40 minutes, excluding procedures/teaching Jose Frank MD Computer Hardware Developer (Electronically Signed)
[2018-03-19] MEDS: Lidocaine Patch REMOVE* 1 NOTE MISC SCH (22:07)
--- NOTE | 2018-03-19 23:11 | CONS ---
CONSULTATION REPORT: DATE OF CONSULT: 03/19/18 SERVICE: General Surgery. ATTENDING SURGEON: Dr. Dione Lee. REASON FOR CONSULT: Free air on CT scan and abdominal pain. HISTORY OF PRESENT ILLNESS: The patient is a 48-year-old female with a past medical history significant for rectal cancer, status post neoadjuvant chemoradiation, laparoscopic low anterior resection, and adjuvant chemotherapy. She had her surgery done in [place] and is followed up by Dr. Harry here in [place]. The patient also has multiple medical problems including chronic pancreatitis, chronic alcoholism, and neuropathy. Her most recent history began last week when she had a fall and she fractured her right hip. She was hospitalized and found to have MRSA bacteremia and a UTI. She underwent ORIF of her right hip by Dr. Lopez earlier this week and her recovery was complicated by fluid overload requiring an ICU stay. She was recently transferred back to the floor when she said that she developed severe abdominal pain yesterday evening. She has chronic epigastric abdominal pain, but she said that this was worse and more diffuse, but also little bit more right sided. This morning, she had a CT scan done that showed a large amount of free air. I had seen her earlier this afternoon at approximately 3 p.m. At that time, she complained of very diffuse abdominal pain at rest and when she eats. PAST MEDICAL HISTORY: 1. Nondisplaced fracture of the right distal radial metaphysis last month. 2. Rectal cancer diagnosed in 2007, treated as per HPI. 3. Peripheral neuropathy. 4. Chronic pancreatitis. 5. Malnutrition. 6. Chronic pain. 7. B12 deficiency. 8. Alcohol abuse. 9. Osteoporosis. 10. History of small bowel obstruction. PAST SURGICAL: 1. Laparoscopic low anterior resection 2. ORIF right hip MEDICATIONS: 1. Folic acid. 2. Famotidine. 3. Calcium citrate and vitamin D3. 4. Percocet. 5. Thiamine. 6. Multivitamin. 7. Imodium. 8. Ativan. 9. OxyContin. ALLERGIES: CIPROFLOXACIN. FAMILY HISTORY: Noncontributory. SOCIAL HISTORY: The patient is . She has a daughter. Her apparently no longer lives with her per medical records, but is also very involved in her care. REVIEW OF SYSTEMS: Positive for abdominal pain. PHYSICAL EXAM: Vital Signs: At the time of consultation, her temperature is 98.5, heart rate was 106, respiratory rate is 20, O2 sat is 90% on 10 L of supplemental oxygen, blood pressure is 106/77. Abdomen: Diffuse tenderness with peritonitis and rebound. General: This is a very cachectic-appearing, emaciated woman lying uncomfortably in bed. DIAGNOSTIC STUDIES/LAB DATA: White blood cell count was 9, hemoglobin is 9.1, hematocrit is 27, platelet count is 366. Sodium is 135, potassium is 4.1, CO2 is 101, BUN is 3, creatinine is less than 0.3, glucose is 98. Albumin from 03/16/18 is 1.7. Prealbumin was 0.7. CT abdomen and pelvis from 03/19/18 showed large amount of free intraperitoneal air suggestive of perforation. There is a moderate amount of ascites and mucosal thickening of the right colon is noted. ASSESSMENT AND PLAN: Ms. Valdez is a 48-year-old female with multiple medical problems including chronic pancreatitis, alcoholism, neuropathy, chronic malnutrition, who was recently hospitalized for right hip fracture and bacteremia and has had postoperative complications including respiratory failure. She was found to have free air on CT scan, reflecting perforation of her bowel. Informed consent was obtained for diagnostic laparoscopy, possible exploratory laparotomy, possible bowel resection, and possible ostomy. I explained the surgery in detail to the patient and I spoke to her over the phone. I explained that we did not know where this perforation was and I would start by doing a diagnostic laparoscopy. I explained that the risks were numerous and include but were not limited to bleeding, wound infection, intraabdominal infection, injury to nearby anatomic structures, and possibility of anastomotic leak if an anastomosis were to be performed and possibility of wound dehiscence and the possibility for reoperation. There are medical risks that include the risk of prolonged ICU hospitalization, prolonged intubation, respiratory and multisystem organ failure and . I informed the patient that this is overall a very high-risk surgery for this patient. They understand and wish to proceed. [id number]/CPS #: [id number] MTDD
[2018-03-20] MEDS: fentaNYL* 50 MCG/ML 2 ML VIAL (100 MCG VIAL) IV SLOW PU PRN ×7 (00:02→18:22)
[2018-03-20] MEDS: NS 0.9% 1000 ML** 1,000 ML IV SCH ×2 (01:41→17:13)
[2018-03-20] MEDS: ZOSYN 3.375 GM Q8H per EXTENDED INFUSION IVPB SCH ×6 (01:41→16:34)
--- NOTE | 2018-03-20 02:51 | OP ---
DATE OF OPERATION: 03/19/18 - ROOM #ICU-02 DATE OF : 68 SERVICE: General Surgery. SURGEON: Dione Lee MD FOCUSED FACTORY MANAGER: Jamel Rosario MD ANESTHESIOLOGIST: Dr. Terry. ANESTHESIA: General endotracheal anesthesia. PRE-OP DIAGNOSIS: Bowel perforation. POST-OP DIAGNOSIS: Cecal perforation, pelvic abscess. OPERATIVE PROCEDURE: Diagnostic laparoscopy, exploratory laparotomy, right hemicolectomy, drainage of intraabdominal abscess, abdominal washout. SPECIMEN: Right colon. ESTIMATED BLOOD LOSS: 200cc INDICATIONS: Ms. Valdez is a 48-year-old female with multiple medical problems including chronic pancreatitis, chronic pain, history of rectal cancer, chronic alcoholism, malnutrition, who had been admitted to the hospital for approximately a week after sustaining a fall that resulted in a right hip fracture for which she had an ORIF done earlier this week. She was found yesterday to have severe abdominal pain and a CT scan showed free air. Therefore, informed consent was obtained for diagnostic laparoscopy and possible exploratory laparotomy with possible bowel resection and ostomy. The patient understood the risks, benefits, and alternatives of the procedure and she wished to proceed. DESCRIPTION OF PROCEDURE: The patient was brought back to the operating room and placed on the operating table in a supine position. Sequential compression devices were placed in her bilateral lower extremities for DVT prophylaxis. Antibiotics with Zosyn was administered prior to incision. The patient underwent general endotracheal anesthesia. Prior to beginning the procedure, the anesthesiologist had placed an arterial line in her left arm radial artery. Her abdomen was prepped and draped in normal sterile fashion. Of note, the patient already had a Borrero catheter in place during her hospitalization. Local anesthesia was administered to the left upper quadrant. Using the Optiview technique and a 5mm trocar, the abdomen was entered under direct visualization. Insufflation was then obtained to 15 mmHg. Upon inspection after entry into the abdomen using the Optiview technique, there was no apparent injury that had been made. What was notable was that the liver was very enlarged and appeared to be cirrhotic and there was free purulent fluid throughout the abdomen. There were not any significant fibrinous exudate or adhesions surrounding the small bowel. Under direct visualization two additional 5cmm trocars were placed after administering local anesthesia-- one in the left lateral abdomen and another around the umbilicus. Inspection of the abdominal cavity was performed to identify the perforation. A careful examination was performed of the anterior stomach. There was no apparent perforation that was there. The duodenum was carefully examined. There was no injury or evidence of perforation at this location. The cecum was noted to be distended and have what appeared to be an extensive longitudinal serosal tear on its anterior surface which was clearly abnormal but there was no evidence of a clear perforation at this point. The small bowel was run from the terminal ileum proximally about two [address] towards the ligament of Treitz. At this point, it was clear that there was really apparently no small bowel injury or perforation, so a decision made given that there was no clear perforation on laparoscopic exam, to do an exploratory laparotomy. Using #10 blade, the abdomen was opened from the upper abdomen down to pubis and careful examination of the abdomen showed again large amount of purulent fluid, a sample of which was suctioned and taken off the table for culture and Gram stain. A more careful examination of the cecum showed that there was actually a very small pinpoint perforation at the serosal tear on the anterior surface, and this is clearly that area of enteric leakage. Therefore, a suture was used to close this opening to prevent further leakage of enteric fluid. The pelvis was also examined and there was no clear injury to the sigmoid colon as well as the left side of colon or transverse colon. The small bowel was also run in its entirety from the terminal ileum to the ligament of Treitz and there was no perforation of the small bowel. The lesser sac was opened and the posterior stomach was examined and appeared to be normal. There were also extensive gastric varices. It was clear that the source of the etiology of this free air and perforation was in the cecum. Therefore, attention was turned towards right colon in order to perform a right hemicolectomy. The right colon was mobilized laterally off of the white line of [place]. This mobilization was quite difficult as the plane between the mesentery and the retroperitoneum was not distinct, given how little intraabdominal fat the patient had. The hepatic flexure was mobilized all the way to the mid transverse colon, taking care to avoid injury in the duodenum. Also, the right ureter was identified and protected. Once the right colon was mobilized lateral to medial off the retroperitoneum, during the more posterior dissection of the cecum that there was a large purulent fluid collection that was suddenly expressed. It was unclear if this abscess was preexisting chronic abscess or from the cecal injury. It appeared to be draining into the pelvis prompting us to carefully investigate the pelvis and her colorectal anastomosis from her prior low anterior resection in 2007. Careful examination of the pelvis showed that there was a little bit of fibrinous exudate along the sacral promontory, but looking circumferentially at the sigmoid colon, there did not appear to be any perforation. This was packed and reexamined later and again there was no enteric fluid soiling these lap pads. Therefore, attention was again turned towards the right colon. It again had been completely mobilized and area of the terminal ileum was selected for the proximal resection site and it was stapled off using an 80 mm blue load linear cutting stapler. An area of the transverse colon was also selected for the distal resection, which was done using another 80 mm linear cutting stapler. Once this was done, the mesentery was divided using a LigaSure and the ileocolic vessels were divided separately with a LigaSure as well as using a tie. Once this was done, the right colon was taken off the table as specimen and attention was turned towards obtaining hemostasis in the retroperitoneum. Once this was done, the abdomen was irrigated with multiple liters of warm saline. Again, attention was turned towards the pelvis. There was no evidence of any drainage or enteric leakage, again suggesting that there may have been a chronic abscess there or possibly an abscess from this perforation. Given that the bowel did appear to be healthy and well vascularized, the decision was made to proceed with doing an ileocolic anastomosis. The terminal ileum and the transverse colon were lined side by side, and side-by- side functional end-to- end anastomosis was made in standard fashion. Two enterotomies were made between in the colon and the small bowel and a MAN 80 load was used to create the common channel and the enterotomy made from doing this was closed using a TA 90 stapler. Staple lines were oversewn using 3-0 silk suture and the mesentery defect was closed using a 3-0 Vicryl suture. The anastomosis was palpated and was felt to be very wide open. Next, careful examination of the abdomen showed that again hemostasis had been obtained. There was, again, no evidence of any further enteric drainage. Two EMELIA drains were placed, one in the pelvis and one in the right upper abdomen. Once this was done, the abdomen was closed using two #1 PDS sutures. The EMELIA drains were secured to the abdominal wall using 3-0 Prolene sutures. Skin was closed using geena. The patient, given her very ill condition and her compromised respiratory status preoperatively, she remained intubated and was taken to the ICU. At the end of the case, all counts were correct. I was present during the entirety of the case. The patient also received 1 unit of blood while in the operating room. [id number] #: [id number] MTDD
[2018-03-20] MEDS: Propofol* 100 ML IV SCH ×2 (06:19→11:57)
[2018-03-20 06:28] LABS: ABS Basophils 0 10^3/ul (0-0.2); ABS Eosinophils 0 10^3/ul (0-0.6); ABS Lymphocytes 0.8 10^3/ul (1.0-4.8); ABS Monocytes 0.5 10^3/ul (0-0.8); ABS Neutrophils 6.4 10^3/ul (1.5-7.7); ABS Nucleated RBC 0 10^3/ul; Eosinophil % 0.3 %; Hematocrit 33 % (35-47); Hemoglobin 11.1 g/dl (12.0-16.0); Lymphocyte % 10.9 %; Mean Corpuscular HGB Conc 34 g/dl (31-36); Mean Corpuscular Hemoglobin 33 pg (27-31); Mean Corpuscular Volume 97 fL (80-97); Mean Platelet Volume 8.1 fL (7.4-10.4); Nucleated Red Blood Cells % 0.1; Platelet Count 330 10^3/ul (150-450); Red Blood Count 3.35 10^6/ul (4.00-5.40); Red Cell Distribution Width 19 % (10.5-15); White Blood Count 7.8 10^3/ul (3.5-10.8)
[2018-03-20 06:38] LABS: ALT 10 U/L (7-52); AST 33 U/L (13-39); Alkaline Phosphatase 171 U/L (34-104); Anion Gap 4 mmol/L (2-11); Blood Urea Nitrogen 7 mg/dL (6-24); C Reactive Protein 194.46 mg/L (<8.01); CO2 Carbon Dioxide 29 mmol/L (22-32); Calcium 6.8 mg/dL (8.6-10.3); Chloride 102 mmol/L (101-111); EGFR African American 286.1 (>60); EGFR Non-African American 236.5 (>60); Glucose 97 mg/dL (70-100); Potassium 3.5 mmol/L (3.5-5.0); Sodium 135 mmol/L (135-145); Total Protein 3.1 g/dL (6.4-8.9)
[2018-03-20 06:42] LABS: Albumin < 1.5 g/dL (3.2-5.2); Albumin/Globulin Ratio 0.9 (1-3); Globulin 1.6 g/dL (2-4)
[2018-03-20] MEDS ORDERED: NS 0.9% 100 ML* 100 ML ONE (08:25)
[2018-03-20] MEDS: Lidocaine PATCH 5%* 1 PATCH TRANSDERM SCH (08:37)
[2018-03-20] MEDS: Pantoprazole IV* 40 MG IV SCH (08:38)
[2018-03-20] MEDS: Clotrimazole 1% CREAM* 45 GM TOPICAL SCH ×2 (08:53→21:02)
[2018-03-20] MEDS ORDERED: Acetaminophen SUPP* 650 MG SUPP PR ONE (09:03)
[2018-03-20] MEDS ORDERED: Acetaminophen ADULT LIQ* 650 MG/20.3 ML UDC PO PRN (09:03)
[2018-03-20] MEDS ORDERED: fentaNYL* 50 MCG/ML 2 ML VIAL (100 MCG VIAL) IV SLOW PU ONE (09:03)
[2018-03-20] MEDS ORDERED: Potassium Chloride LIQUID* 20 MEQ PACKET PO ONE (09:06)
--- NOTE | 2018-03-20 09:46 | PN ---
Progress Note - Progress Note Date of Service: 03/20/18 Note: Surgery Progress Note S: Patient remains sedated and intubated this morning. Overnight and this morning she continues to have fevers. Vasopressors are off. She received a total of 2 PRBC yesterday-- 1 in OR and 1 in ICU. EBL from surgery approximately 100cc however, patient was anemic prior to OR and appeared coagulopathic from sepsis and chronic malnutrition. NGT fell out. Otherwise no other overnight events. O: Vital Signs - 24 hr 03/19/18 03/19/18 03/19/18 10:43 10:49 11:58 Temperature 98.7 F Pulse Rate 115 Respiratory 19 18 18 Rate Blood Pressure 103/71 (mmHg) O2 Sat by Pulse 97 Oximetry 03/19/18 03/19/18 03/19/18 12:16 12:24 15:25 Temperature 98.5 F Pulse Rate 106 Respiratory 19 18 20 Rate Blood Pressure 106/77 (mmHg) O2 Sat by Pulse 90 Oximetry 03/19/18 03/19/18 03/19/18 16:02 16:37 20:32 Temperature 97.1 F Pulse Rate 122 95 Respiratory 18 27 Rate Blood Pressure 122/83 (mmHg) O2 Sat by Pulse 91 97 Oximetry 03/19/18 03/19/18 03/19/18 20:45 22:00 23:00 Temperature Pulse Rate 98 102 101 Respiratory 20 Rate Blood Pressure 127/80 131/91 142/94 (mmHg) O2 Sat by Pulse 96 99 100 Oximetry 03/19/18 03/20/18 03/20/18 23:57 00:00 00:02 Temperature 97.7 F Pulse Rate 107 Respiratory 14 20 Rate Blood Pressure 131/90 (mmHg) O2 Sat by Pulse 98 Oximetry 03/20/18 03/20/18 03/20/18 01:00 02:00 03:00 Temperature Pulse Rate 106 108 109 Respiratory 18 20 16 Rate Blood Pressure 128/91 124/90 127/86 (mmHg) O2 Sat by Pulse 97 95 94 Oximetry 03/20/18 03/20/18 03/20/18 03:47 04:00 05:00 Temperature 100.6 F Pulse Rate 110 114 Respiratory 20 19 Rate Blood Pressure 115/77 124/76 (mmHg) O2 Sat by Pulse 94 93 Oximetry 03/20/18 03/20/18 03/20/18 05:54 06:00 06:01 Temperature Pulse Rate 116 116 Respiratory 16 Rate Blood Pressure 120/79 (mmHg) O2 Sat by Pulse 93 93 Oximetry 03/20/18 03/20/18 03/20/18 06:08 06:14 08:00 Temperature 101.4 F 101.4 F Pulse Rate Respiratory 20 Rate Blood Pressure (mmHg) O2 Sat by Pulse Oximetry 03/20/18 03/20/18 03/20/18 08:46 09:13 09:17 Temperature Pulse Rate Respiratory 17 17 18 Rate Blood Pressure (mmHg) O2 Sat by Pulse Oximetry Laboratory Last Values WBC 7.8 10^3/ul (3.5-10.8) 03/20/18 06:05 RBC 3.35 10^6/ul (4.00-5.40) L 03/20/18 06:05 Hgb 11.1 g/dl (12.0-16.0) L 03/20/18 06:05 Hct 33 % (35-47) L 03/20/18 06:05 MCV 97 fL (80-97) 03/20/18 06:05 MCH 33 pg (27-31) H 03/20/18 06:05 MCHC 34 g/dl (31-36) 03/20/18 06:05 RDW 19 % (10.5-15) H 03/20/18 06:05 Plt Count 330 10^3/ul (150-450) 03/20/18 06:05 MPV 8.1 fL (7.4-10.4) 03/20/18 06:05 Neut % (Auto) 82.6 % 03/20/18 06:05 Lymph % (Auto) 10.9 % 03/20/18 06:05 [place] % (Auto) 5.9 % 03/20/18 06:05 Eos % (Auto) 0.3 % 03/20/18 06:05 Baso % (Auto) 0.3 % 03/20/18 06:05 Absolute Neuts (auto) 6.4 10^3/ul (1.5-7.7) 03/20/18 06:05 Absolute Lymphs (auto) 0.8 10^3/ul (1.0-4.8) L 03/20/18 06:05 Absolute Monos (auto) 0.5 10^3/ul (0-0.8) 03/20/18 06:05 Absolute Eos (auto) 0 10^3/ul (0-0.6) 03/20/18 06:05 Absolute Basos (auto) 0 10^3/ul (0-0.2) 03/20/18 06:05 Absolute Nucleated RBC 0 10^3/ul 03/20/18 06:05 Neutrophils % 91 % 03/17/18 06:55 Lymphocytes % 6 % 03/17/18 06:55 Monocytes % 2 % 03/17/18 06:55 Eosinophils % 1 % 03/17/18 06:55 Nucleated RBC % 0.1 03/20/18 06:05 Abs Neuts (Manual) 13.9 10^3/ul (1.5-7.7) H 03/17/18 06:55 Abs Lymphs (Manual) 0.918 10^3/ul (1.0-4.8) L 03/17/18 06:55 Abs Monocytes (Manual) 0.306 10^3/ul (0-0.8) 03/17/18 06:55 Absolute Eos (Manual) 0.153 10^3/ul (0-0.6) 03/17/18 06:55 Normal RBC Morphology Not Reportable 03/17/18 06:55 Polychromasia 1+ 03/17/18 06:55 Anisocytosis 2+ 03/17/18 06:55 Stomatocytes 1+ 03/17/18 06:55 Hem Pathologist Commnt 03/17/18 06:55 INR (Anticoag Therapy) 1.07 (0.77-1.02) H 03/14/18 04:42 APTT 33.0 seconds (26.0-36.3) 03/09/18 18:39 Patient Temperature Not Reportable 03/20/18 06:05 ABG pH 7.49 (7.35-7.45) H 03/20/18 06:05 ABG pH (Temp Correct) Not Reportable 03/20/18 06:05 ABG pCO2 38 mmHg (35-45) 03/20/18 06:05 ABG pCO2 (Temp Corrct Not Reportable 03/20/18 06:05 ABG pO2 98 mmHg (80-100) 03/20/18 06:05 ABG pO2 (Temp Correct Not Reportable 03/20/18 06:05 ABG HCO3 29.1 mmol/L (19-31) 03/20/18 06:05 ABG O2 Saturation 99.2 % (94.0-98.0) H 03/20/18 06:05 ABG Base Excess 5.4 mmol/L (-2.0-2.0) H 03/20/18 06:05 Respiration Rate 14 03/20/18 06:05 O2 Delivery Device Vent 03/20/18 06:05 Ventilator Type 420 03/20/18 06:05 Vent Mode Apvcmv 03/20/18 06:05 FiO2 50 03/20/18 06:05 Inspiratory Time Not Reportable 03/20/18 06:05 PEEP 5 03/20/18 06:05 Pressure Support Not Reportable 03/20/18 06:05 Pressure Control Not Reportable 03/20/18 06:05 EPAP Not Reportable 03/20/18 06:05 IPAP Not Reportable 03/20/18 06:05 BiPAP Not Reportable 03/20/18 06:05 Sodium 135 mmol/L (135-145) 03/20/18 06:05 Potassium 3.5 mmol/L (3.5-5.0) 03/20/18 06:05 Chloride 102 mmol/L (101-111) 03/20/18 06:05 Carbon Dioxide 29 mmol/L (22-32) 03/20/18 06:05 Anion Gap 4 mmol/L (2-11) 03/20/18 06:05 BUN 7 mg/dL (6-24) 03/20/18 06:05 Creatinine < 0.30 mg/dL (0.51-0.95) L 03/20/18 06:05 Est GFR ( Amer) 286.1 (>60) 03/20/18 06:05 Est GFR (Non-Af Amer) 236.5 (>60) 03/20/18 06:05 BUN/Creatinine Ratio 23.0 (8-20) H 03/20/18 06:05 Glucose 97 mg/dL (70-100) 03/20/18 06:05 Lactic Acid 1.4 mmol/L (0.5-2.0) 03/09/18 18:39 Calcium 6.8 mg/dL (8.6-10.3) L 03/20/18 06:05 Magnesium 2.1 mg/dL (1.9-2.7) 03/19/18 06:13 Iron < 17 ug/dL (50-212) L 03/16/18 06:01 TIBC 105 mcg/dL (250-450) L 03/16/18 06:01 % Saturation 16 % (15-55) 03/16/18 06:01 Unsat Iron Binding < 90 ug/dL 03/16/18 06:01 Transferrin < 75 mg/dL (203-362) L 03/16/18 06:01 Ferritin 290.7 ng/mL (11-307) 03/10/18 06:04 Total Bilirubin 0.60 mg/dL (0.2-1.0) 03/20/18 06:05 Direct Bilirubin 0.60 mg/dL (0.03-0.18) H 03/10/18 18:44 Indirect Bilirubin 0.7 mg/dL (0.3-1.0) 03/10/18 18:44 AST 33 U/L (13-39) 03/20/18 06:05 ALT 10 U/L (7-52) 03/20/18 06:05 Alkaline Phosphatase 171 U/L (34-104) H 03/20/18 06:05 Ammonia 86 mcmol/L (16-53) H 03/17/18 06:55 Troponin I 0.01 ng/mL (<0.04) 03/09/18 18:39 C-Reactive Protein 194.46 mg/L (<8.01) H 03/20/18 06:05 B-Natriuretic Peptide 316 pg/mL (<=100) H 03/09/18 18:39 Total Protein 3.1 g/dL (6.4-8.9) L 03/20/18 06:05 Albumin < 1.5 g/dL (3.2-5.2) L 03/20/18 06:05 Globulin 1.6 g/dL (2-4) L 03/20/18 06:05 Albumin/Globulin Ratio 0.9 (1-3) L 03/20/18 06:05 Prealbumin 6 mg/dL (18-38) L 03/09/18 18:39 Lipase < 10 U/L (11.0-82.0) L 03/19/18 13:22 Vitamin B12 > 1450 pg/mL (180-914) H 03/09/18 18:39 TSH 1.87 mcIU/mL (0.34-5.60) 03/09/18 18:39 Urine Color [place] 03/17/18 13:10 Urine Appearance Cloudy 03/17/18 13:10 Urine pH 5.0 (5-9) 03/17/18 13:10 Ur Specific [place] 1.029 (1.010-1.030) 03/17/18 13:10 Urine Protein Negative (Negative) 03/17/18 13:10 Urine Ketones Trace (Negative) A 03/17/18 13:10 Urine Blood 3+ (Negative) A 03/17/18 13:10 Urine Nitrate Positive (Negative) A 03/17/18 13:10 Urine Bilirubin Negative (Negative) 03/17/18 13:10 Urine Urobilinogen Negative (Negative) 03/17/18 13:10 Ur Leukocyte Esterase 2+ (Negative) A 03/17/18 13:10 Urine WBC (Auto) 3+(>20/hpf) (Absent) A 03/17/18 13:10 Urine RBC (Auto) 3+(>10/hpf) (Absent) A 03/17/18 13:10 Ur Transition Epith Cell Present (Absent) A 03/11/18 00:06 Urine Bacteria Absent (Absent) 03/17/18 13:10 Urine Yeast Present (Absent) A 03/17/18 13:10 Urine Glucose 1+(50 mg/dl) (Negative) A 03/17/18 13:10 Serum Alcohol < 10 mg/dL (<10) 03/09/18 18:39 Zinc 0.78 mcg/mL (0.66-1.10) 03/13/18 18:47 Blood Type B Positive 03/19/18 06:13 Antibody Screen Negative 03/19/18 06:13 Crossmatch See Detail 03/19/18 06:13 Intake & Output 03/19/18 03/20/18 03/20/18 22:59 06:59 14:59 Intake Total 1953.8 391.8 Output Total 380 520 205 Balance 1573.8 -128.2 -205 Weight 111 lb 5.842 oz Intake: IV Fluids 1650 211 Hetastarch 500 LR 1000 NS (0.9%) 150 211 IVPB 105 Zosyn 105 Medicated IV 3.8 75.8 CC - Propofol/Diprivan 3.8 75.8 Packed Cells 300 Output: EMELIA #1 50 120 80 EMELIA #2 60 180 60 Borrero 270 220 65 Physical exam: abdomen soft, minimally distended, dressings in place with some small amount of saturation. Right drain along ileocolic anastomosis with serosanguinous fluid, left drain in pelvis with serosanguinous fluid. Minimal bowel sounds. Imaging: CXR- extensive bilateral infiltrates, pleural effusions A/P: 48 F with chronic pancreatitis, chronic alcoholism, malnutrition, peripheral neuropathy, s/p ORIF right hip, found to have free air yesterday, now POD 1 from dx laparoscopy, exploratory laparotomy, right hemicolectomy, abdominal washout for cecal perforation. - Recommend initiating TPN for nutrition until patient has bowel function and can start enteral feeds - Follow up intraoperative cultures, patient remains febrile and on Zosyn empirically - Appreciate ICU management, may attempt extubation today - PPx: protonix, would start HSQ today given appropriate increase in Hct after transfusion and no evidence of bleeding
--- NOTE | 2018-03-20 09:57 | PN ---
Progress Note - Progress Note Date of Service: 03/20/18 SOAP: Subjective: Pt continues to be sedated and intubated. She is awake. Objective: PE- 48 y/o F, intubated, NAD RLE- dressing changed, inc c/d/i, no warmth or erythema, mild serous drainage on dressing, calf soft NT, NVI Vital Signs Temp Pulse Resp BP Pulse Ox 101.4 F 116 18 120/79 93 03/20/18 08:00 03/20/18 06:01 03/20/18 09:17 03/20/18 06:00 03/20/18 06:01 Laboratory Results - last 24 hr 03/19/18 03/19/18 03/19/18 06:13 13:22 22:53 WBC RBC Hgb Hct MCV MCH MCHC RDW Plt Count MPV Neut % (Auto) Lymph % (Auto) [place] % (Auto) Eos % (Auto) Baso % (Auto) Absolute Neuts (auto) Absolute Lymphs (auto) Absolute Monos (auto) Absolute Eos (auto) Absolute Basos (auto) Absolute Nucleated RBC Nucleated RBC % Patient Temperature 98.7 ABG pH 7.45 ABG pH (Temp Correct) Not Reportable ABG pCO2 43 ABG pCO2 (Temp Corrct Not Reportable ABG pO2 130 H ABG pO2 (Temp Correct Not Reportable ABG HCO3 29.0 ABG O2 Saturation 99.7 H ABG Base Excess 5.2 H Respiration Rate 14 O2 Delivery Device Vent Ventilator Type 420 Vent Mode Apvcmv FiO2 70 Inspiratory Time Not Reportable PEEP 5 Pressure Support Not Reportable Pressure Control Not Reportable EPAP Not Reportable IPAP Not Reportable BiPAP Not Reportable Sodium Potassium Chloride Carbon Dioxide Anion Gap BUN Creatinine Est GFR ( Amer) Est GFR (Non-Af Amer) BUN/Creatinine Ratio Glucose Calcium Total Bilirubin AST ALT Alkaline Phosphatase C-Reactive Protein Total Protein Albumin Globulin Albumin/Globulin Ratio Lipase < 10 L Blood Type B Positive Antibody Screen Negative Crossmatch See Detail 03/20/18 03/20/18 03/20/18 06:05 06:05 06:05 WBC 7.8 RBC 3.35 L Hgb 11.1 L Hct 33 L MCV 97 MCH 33 H MCHC 34 RDW 19 H Plt Count 330 MPV 8.1 Neut % (Auto) 82.6 Lymph % (Auto) 10.9 [place] % (Auto) 5.9 Eos % (Auto) 0.3 Baso % (Auto) 0.3 Absolute Neuts (auto) 6.4 Absolute Lymphs (auto) 0.8 L Absolute Monos (auto) 0.5 Absolute Eos (auto) 0 Absolute Basos (auto) 0 Absolute Nucleated RBC 0 Nucleated RBC % 0.1 Patient Temperature Not Reportable ABG pH 7.49 H ABG pH (Temp Correct) Not Reportable ABG pCO2 38 ABG pCO2 (Temp Corrct Not Reportable ABG pO2 98 ABG pO2 (Temp Correct Not Reportable ABG HCO3 29.1 ABG O2 Saturation 99.2 H ABG Base Excess 5.4 H Respiration Rate 14 O2 Delivery Device Vent Ventilator Type 420 Vent Mode Apvcmv FiO2 50 Inspiratory Time Not Reportable PEEP 5 Pressure Support Not Reportable Pressure Control Not Reportable EPAP Not Reportable IPAP Not Reportable BiPAP Not Reportable Sodium 135 Potassium 3.5 Chloride 102 Carbon Dioxide 29 Anion Gap 4 BUN 7 Creatinine < 0.30 L Est GFR ( Amer) 286.1 Est GFR (Non-Af Amer) 236.5 BUN/Creatinine Ratio 23.0 H Glucose 97 Calcium 6.8 L Total Bilirubin 0.60 AST 33 ALT 10 Alkaline Phosphatase 171 H C-Reactive Protein 194.46 H Total Protein 3.1 L Albumin < 1.5 L Globulin 1.6 L Albumin/Globulin Ratio 0.9 L Lipase Blood Type Antibody Screen Crossmatch Assessment: s/p R hip gamma nailing 2/[address] Lopez. - Multiple Co-morbidities including rectal CA and recent bowel perforation Plan: - DVT prophylaxis- per hospitalist - Continue PT/ OT- TTWB RLW -Appreciate medical and ICU management -Drainage improving, cont to monitor incision
[2018-03-20] MEDS ORDERED: Lidocaine 2% JELLY* 6 ML JELLY TOPICAL ONE ×2 (11:21→11:28)
[2018-03-20] MEDS ORDERED: Furosemide IV* 10 MG/ML 2 ML VIAL (20 MG) IV ONE ×2 (12:05→20:43)
--- NOTE | 2018-03-20 12:06 | PN ---
Progress Note - Progress Note Date of Service: 03/20/18 Note: Progress Note -- Critical Care 24 hour events -intubated, sedated -no overnight events -opens eyes on sedation -abd wound intact, giorgi+ -no pressors -making urine -febrile 101.4 this morning -she pulled out NGT twice this morning Tele: NSR Vitals: Vital Signs Temp 100 F 03/20/18 11:33 Pulse 122 03/20/18 11:01 Resp 16 03/20/18 11:16 BP 111/79 03/20/18 11:00 Pulse Ox 93 03/20/18 11:01 Intake & Output 03/19/18 03/20/18 03/20/18 18:59 06:59 18:59 Intake Total 680 2345.6 Output Total 3400 900 245 Balance -2720 1445.6 -245 Weight 50.514 kg Intake: IV Fluids 1861 Hetastarch 500 LR 1000 NS (0.9%) 361 IVPB 105 Zosyn 105 Medicated IV 79.6 CC - Propofol/Diprivan 79.6 Oral 680 Packed Cells 300 Output: GIORGI #1 170 80 GIORGI #2 240 60 Hernandez 3400 490 105 Other: Date of Last Bowel [id number] Movement # Bowel Movements 1 Estimated Stool Amount Medium O2/Vent: AC 14/420/+5/50% Infusions: propofol, NS 50 Current Medications: Acetaminophen (Tylenol Adult Liq*) 650 mg PO Q6H PRN PRN Reason: TEMP EQUAL OR GREATER 101 F Albuterol (Ventolin 2.5 Mg/3 Ml Neb.Radha*) 2.5 mg INH Q4H PRN PRN Reason: SOB/WHEEZING Clotrimazole (Clotrimazole 1%*) 1 applic TOPICAL BID [facility] Last Admin: 03/20/18 08:53 Dose: 1 applic Fentanyl Citrate (Fentanyl*) 25 mcg IV SLOW PU Q1H PRN PRN Reason: PAIN - MODERATE Last Admin: 03/20/18 11:16 Dose: 25 mcg Piperacillin Sod/Tazobactam (Sod 3.375 gm/ Sodium Chloride) 100 mls @ 25 mls/ hr IVPB Q8H [facility] Last Admin: 03/20/18 08:37 Dose: 25 mls/hr Propofol (Diprivan*) 100 mls @ 3.096 mls/hr IV .(Initial Rate) [facility]; Protocol Last Admin: 03/20/18 11:57 Dose: 17.3 mls/hr Sodium Chloride (Ns 0.9% 1000 Ml) 1,000 mls @ 50 mls/hr IV PER RATE [facility] Last Admin: 03/20/18 01:41 Dose: 50 mls/hr Lidocaine (Lidoderm 5% Patch*) 1 patch TRANSDERM DAILY [facility] Last Admin: 03/20/18 08:37 Dose: 1 patch Morphine Sulfate (Morphine Inj ((Syringe))*) 2 mg IV Q1H PRN PRN Reason: PAIN Last Admin: 03/19/18 16:02 Dose: 2 mg Ondansetron HCl (Zofran Inj*) 4 mg IV Q4H PRN PRN Reason: NAUSEA/VOMITING Last Admin: 03/17/18 20:04 Dose: 4 mg Oxycodone HCl (Roxycodone Tab*) 10 mg PO Q4H PRN PRN Reason: PAIN Last Admin: 03/19/18 10:43 Dose: 10 mg Pantoprazole Sodium (Protonix Iv*) 40 mg IV DAILY [facility] Last Admin: 03/20/18 08:38 Dose: 40 mg Pharmacy Consult (Zosyn Per Pharmacy*) 1 note FOLLOW UP .ZOSYN PER [facility]ARMACY [facility] Pharmacy Profile Note (Lidocaine Patch Remove*) 1 note N/A 2100 [facility] Last Admin: 03/19/18 22:07 Dose: Not Given Physical Exam: General: intubated, sedated, cachetic appearing Head: normocephalic, atraumatic HEENT: no pallor, no icterus, moist mucous membranes Neck: soft, supple, no jvd CVS: normal rate, regular, no murmur Resp: bilateral air entry, no rhales/wheeze/rhonchi Abdomen: soft, midline surgical scare+, nondistended, GIORGI+ Ext: pulses+, warm, no edema Skin: intact Neuro: intubated, sedated, awakens only Labs: Laboratory Results - last 24 hr 03/19/18 03/19/18 03/19/18 06:13 13:22 22:53 WBC RBC Hgb Hct MCV MCH MCHC RDW Plt Count MPV Neut % (Auto) Lymph % (Auto) [place] % (Auto) Eos % (Auto) Baso % (Auto) Absolute Neuts (auto) Absolute Lymphs (auto) Absolute Monos (auto) Absolute Eos (auto) Absolute Basos (auto) Absolute Nucleated RBC Nucleated RBC % Patient Temperature 98.7 ABG pH 7.45 ABG pH (Temp Correct) Not Reportable ABG pCO2 43 ABG pCO2 (Temp Corrct Not Reportable ABG pO2 130 H ABG pO2 (Temp Correct Not Reportable ABG HCO3 29.0 ABG O2 Saturation 99.7 H ABG Base Excess 5.2 H Respiration Rate 14 O2 Delivery Device Vent Ventilator Type 420 Vent Mode Apvcmv FiO2 70 Inspiratory Time Not Reportable PEEP 5 Pressure Support Not Reportable Pressure Control Not Reportable EPAP Not Reportable IPAP Not Reportable BiPAP Not Reportable Sodium Potassium Chloride Carbon Dioxide Anion Gap BUN Creatinine Est GFR ( Amer) Est GFR (Non-Af Amer) BUN/Creatinine Ratio Glucose Calcium Total Bilirubin AST ALT Alkaline Phosphatase C-Reactive Protein Total Protein Albumin Globulin Albumin/Globulin Ratio Lipase < 10 L Blood Type B Positive Antibody Screen Negative Crossmatch See Detail 03/20/18 03/20/18 03/20/18 06:05 06:05 06:05 WBC 7.8 RBC 3.35 L Hgb 11.1 L Hct 33 L MCV 97 MCH 33 H MCHC 34 RDW 19 H Plt Count 330 MPV 8.1 Neut % (Auto) 82.6 Lymph % (Auto) 10.9 [place] % (Auto) 5.9 Eos % (Auto) 0.3 Baso % (Auto) 0.3 Absolute Neuts (auto) 6.4 Absolute Lymphs (auto) 0.8 L Absolute Monos (auto) 0.5 Absolute Eos (auto) 0 Absolute Basos (auto) 0 Absolute Nucleated RBC 0 Nucleated RBC % 0.1 Patient Temperature Not Reportable ABG pH 7.49 H ABG pH (Temp Correct) Not Reportable ABG pCO2 38 ABG pCO2 (Temp Corrct Not Reportable ABG pO2 98 ABG pO2 (Temp Correct Not Reportable ABG HCO3 29.1 ABG O2 Saturation 99.2 H ABG Base Excess 5.4 H Respiration Rate 14 O2 Delivery Device Vent Ventilator Type 420 Vent Mode Apvcmv FiO2 50 Inspiratory Time Not Reportable PEEP 5 Pressure Support Not Reportable Pressure Control Not Reportable EPAP Not Reportable IPAP Not Reportable BiPAP Not Reportable Sodium 135 Potassium 3.5 Chloride 102 Carbon Dioxide 29 Anion Gap 4 BUN 7 Creatinine < 0.30 L Est GFR ( Amer) 286.1 Est GFR (Non-Af Amer) 236.5 BUN/Creatinine Ratio 23.0 H Glucose 97 Calcium 6.8 L Total Bilirubin 0.60 AST 33 ALT 10 Alkaline Phosphatase 171 H C-Reactive Protein 194.46 H Total Protein 3.1 L Albumin < 1.5 L Globulin 1.6 L Albumin/Globulin Ratio 0.9 L Lipase Blood Type Antibody Screen Crossmatch Imaging: CT abd/pelvis 03/19 - free intraperitoneal air cxr 03/19 - ett above govind, pulm congestion+ Assessment: 48y F w/pmhx of Rectal Ca s/p chemorad and chemo-adj, s/p surgery 2007, ETOH abuse, peripheral neuropathy, chronic opiate use, failure to thrive; presented initially with a mechanical fall and Right hip fracture. She is s/p Right hip ORIF 03/14/2018. She also had a Righit distal radial bone fx 01/2018. She was recently in ICU for volume overload and hypoxic respiratory failure requiring hiflow therapy. She was just moved out of ICU today, when she developed acute abd pain on the medical floor. A CT abd/pelvis demonstrated free intraperitoneal air. Surgery consult called and she was takne to the OR. -Cecal perforation ; s/p Exploratory laporatomy, with Right hemicolectomy and end-end anastamosis - 03/19 -Peritonitis -Acute hypoxic respiratory failure -Pulmonary congestion -Anemia -Right hip fracture s/p Right ORIF 03/14 -E.coli and Pseudomonas UTI -Failure to thrive -ETOH abuse Plan: Neuro- wean propofol, neuro checks, sedation vacation. Asp prec. Delirium prec. CVS- BP stable. Cont NS 50cc/hr. Plan to start PPN tonight, d/c IVF NS then. Will start low dose lasix to augment output. -IV abx for UTI/Peritonitis. Resp- intubated, on 50% AC. CXR today. May need additional lasix. -Bronchodilators PRN. -sedation vacation, plan for vent weaning ID- tmax 101.4 wbc 8. UTi with E.coli and Psedumonas+. -Cecal perforation and pus in abd+, s/p washout. Suspect Peritonitis component. -Cont Zosyn for Abd coverage (day#1). Pendign intraop cultures. GI- -NPO, no sig bowel movements yet. BS diminished. Wound care to surgical sites. Monitor GIORGI outputs. Reinsert NGT, low intermittent suction -plan for PPN this weekend, PICC thursday and change to TPN then. Watchful waiting to see if GI track recovers. Very nutritionally depleted. -watchful waiting; discussed case with surgeon Renal- Cr okay. K okay, replete 40meq via ngt x1. No acidosis. making urine. hernandez+ -laix 20mg IV x1 Heme- anemia, hg stable 11. s/p PRBC x2 yesterday. plt okay. Heparin sq/SCD for DVT proph Endo- fingerstick prn Musculsk- pressure ulcer prophylaxis. Bedrest. Wounds- none Nutrition- NPO; NGT to be placed; start PPN for now, TPN expected thursday. DVT prophylaxis: SCD/heparin sq GI prophylaxis: PPI Central Line: no Arterial Line: yes Hernandez Cathetor: yes Disposition: Patient requires Critical Care/ICU for post perforation laparotomy , intubated state Patient Clinical Status: guarded, critical Code Status: full code Total Critical Care time is 35 minutes, excluding procedures/teaching Jose Frank MD Advertising Vice President (Electronically Signed)
[2018-03-20] MEDS ORDERED: Heparin VIAL(*) 5000 UNITS/ML VIAL (FIVE THOUSAND) SUBCUT SCH (14:00)
[2018-03-20] MEDS: Chlorhexidine MOUTHWASH 0.12%* 15 ML UDC TOPICAL SCH ×2 (14:50→18:30)
[2018-03-20] MEDS ORDERED: Morphine VIAL* 4 MG/ML VIAL (1 ml vial) IV PRN (16:40)
[2018-03-20] MEDS: TPN* 24 HR with D10W 1000 ML BAG* 1,000 ML, Amino Acid Infusion 10%* 850 ML, Sterile Wa... IV SCH ×12 (18:30)
[2018-03-20] MEDS: oxyCODONE TAB* 5 MG TAB PO PRN (18:32)
[2018-03-20] MEDS ORDERED: HYDROmorphone INJ1* 1 MG/ML SYRINGE ONE (19:37)
[2018-03-20] MEDS ORDERED: HYDROmorphone INJ1* 1 MG/ML SYRINGE IV ONE (19:40)
[2018-03-20] MEDS: LORazepam INJ* 2 MG/ML 1 ML VIAL IV PUSH PRN (20:58)
[2018-03-20] MEDS: HYDROmorphone INJ1* 1 MG/ML SYRINGE IV SLOW PU PRN (20:58)
[2018-03-20] MEDS ORDERED: fentaNYL PATCH 25 MCG/HR TRANSDERM SCH (21:00)
[2018-03-20] MEDS: Miconazole TOPICAL CREAM 2%* 30 GM TOPICAL SCH (21:03)
[2018-03-20] MEDS: Lidocaine Patch REMOVE* 1 NOTE MISC SCH (21:08)
[2018-03-20] MEDS: metroNIDAZOLE IV 500 MG/100ML* 500 MG/100 ML BAG IVPB SCH (22:00)
[2018-03-21] MEDS: HYDROmorphone INJ1* 1 MG/ML SYRINGE IV SLOW PU PRN ×8 (00:40→19:29)
[2018-03-21] MEDS: Cefepime 2 GM in Dextrose(*) 2 GM/50 ML BAG IV SCH ×2 (01:11→13:31)
[2018-03-21] MEDS ORDERED: Furosemide IV* 10 MG/ML VIAL (40 MG) IV ONE ×2 (01:13→16:24)
[2018-03-21] MEDS: LORazepam INJ* 2 MG/ML 1 ML VIAL IV PUSH PRN ×4 (03:10→19:20)
[2018-03-21 06:02] LABS: Hematocrit 32 % (35-47); Hemoglobin 10.9 g/dl (12.0-16.0); Mean Corpuscular HGB Conc 34 g/dl (31-36); Mean Corpuscular Hemoglobin 33 pg (27-31); Mean Corpuscular Volume 97 fL (80-97); Mean Platelet Volume 7.8 fL (7.4-10.4); Platelet Count 332 10^3/ul (150-450); Red Blood Count 3.35 10^6/ul (4.00-5.40); Red Cell Distribution Width 21 % (10.5-15); White Blood Count 12.8 10^3/ul (3.5-10.8)
[2018-03-21] MEDS: metroNIDAZOLE IV 500 MG/100ML* 500 MG/100 ML BAG IVPB SCH ×2 (06:08→14:46)
[2018-03-21 06:17] LABS: ALT 13 U/L (7-52); AST 22 U/L (13-39); Alkaline Phosphatase 179 U/L (34-104); Blood Urea Nitrogen 9 mg/dL (6-24); CO2 Carbon Dioxide 33 mmol/L (22-32); Chloride 99 mmol/L (101-111); EGFR African American 286.1 (>60); EGFR Non-African American 236.5 (>60); Glucose 170 mg/dL (70-100); Indirect Bilirubin 0.3 mg/dL (0.3-1.0); Magnesium 1.5 mg/dL (1.9-2.7); Phosphorus 2.6 mg/dL (2.5-5.0); Potassium 3.5 mmol/L (3.5-5.0); Sodium 131 mmol/L (135-145); Total Protein 3.5 g/dL (6.4-8.9); Triglycerides 130 mg/dL
[2018-03-21 06:18] LABS: Prealbumin 3 mg/dL (18-38)
[2018-03-21 06:27] LABS: Albumin < 1.5 g/dL (3.2-5.2); Albumin/Globulin Ratio 0.8 (1-3)
[2018-03-21] MEDS: fentaNYL Patch Check Q Shift 1 NOTE SCH ×2 (07:22→19:06)
[2018-03-21] MEDS: Pantoprazole IV* 40 MG IV SCH (08:32)
[2018-03-21] MEDS: Lidocaine PATCH 5%* 1 PATCH TRANSDERM SCH (08:32)
[2018-03-21] MEDS: Clotrimazole 1% CREAM* 45 GM TOPICAL SCH (08:44)
[2018-03-21] MEDS: Miconazole TOPICAL CREAM 2%* 30 GM TOPICAL SCH (08:44)
--- NOTE | 2018-03-21 09:55 | PN ---
Progress Note - Progress Note Date of Service: 03/21/18 SOAP: Subjective: Patient is less sedated than yesterday. Extubated. Able to respond to simple commands. Objective: PE- 48 y/o WDWN F, NAD RLE- dressing changed, inc c/d/i, minimal serous drainage on the gauze pads, no active drainage, no warmth or erythema, calf soft NT, +2 DP pulse, SILT distally Vital Signs Temp Pulse Resp BP Pulse Ox 99.9 F 118 17 122/83 95 03/21/18 08:00 03/21/18 09:01 03/21/18 09:01 03/21/18 09:00 03/21/18 09:01 Laboratory Results - last 24 hr 03/21/18 03/21/18 03/21/18 02:12 05:45 05:45 WBC 12.8 H RBC 3.35 L Hgb 10.9 L Hct 32 L MCV 97 MCH 33 H MCHC 34 RDW 21 H Plt Count 332 MPV 7.8 Patient Temperature Not Reportable ABG pH 7.49 H ABG pH (Temp Correct) Not Reportable ABG pCO2 40 ABG pCO2 (Temp Corrct Not Reportable ABG pO2 94 ABG pO2 (Temp Correct Not Reportable ABG HCO3 30.1 ABG O2 Saturation 99.5 H ABG Base Excess 6.6 H Respiration Rate Not Reportable O2 Delivery Device Bipap Ventilator Type Not Reportable Vent Mode Not Reportable FiO2 60 Inspiratory Time Not Reportable PEEP Not Reportable Pressure Support Not Reportable Pressure Control Not Reportable EPAP 5 IPAP 10 BiPAP Not Reportable Sodium 131 L Potassium 3.5 Chloride 99 L Carbon Dioxide 33 H BUN 9 Creatinine < 0.30 L Est GFR ( Amer) 286.1 Est GFR (Non-Af Amer) 236.5 BUN/Creatinine Ratio 30.0 H Glucose 170 H Calcium 7.0 L Phosphorus 2.6 Magnesium 1.5 L Total Bilirubin 0.40 Direct Bilirubin 0.10 Indirect Bilirubin 0.3 AST 22 ALT 13 Alkaline Phosphatase 179 H Total Protein 3.5 L Albumin < 1.5 L Globulin 2.0 Albumin/Globulin Ratio 0.8 L Prealbumin 3 L Triglycerides 130 Assessment: s/p R hip gamma nailing 2/[address] Lopez. - Multiple Co-morbidities including rectal CA and recent bowel perforation Plan: - DVT prophylaxis- per hospitalist - Continue PT/ OT- TTWB RLW -Appreciate medical and ICU management -Drainage cont to improve, cont to monitor incision
[2018-03-21] MEDS ORDERED: Magnesium Sulfate IV* 2 GM in NS 0.9% 100 ML* 100 ML IV ONE (10:30)
--- NOTE | 2018-03-21 10:36 | PN ---
Progress Note - Progress Note Date of Service: 03/21/18 Note: Progress Note -- Critical Care 24 hour events -extubated yesterday; no events overnight -awake, alert. complaints of pain but doesnt appear to be in pain, sleeping at times -NGT+ -passed some gas+; no bowel movements; minimal ngt output noted -afebrile , tmax 100 -BP stable -on PPN infusion Tele: sinus tachy Vitals: Vital Signs Temp 99.9 F 03/21/18 08:00 Pulse 121 03/21/18 10:01 Resp 21 03/21/18 10:01 BP 115/82 03/21/18 10:00 Pulse Ox 93 03/21/18 10:01 Intake & Output 03/20/18 03/21/18 03/21/18 18:59 06:59 18:59 Intake Total 767 1912 Output Total 980 1980 240 Balance -213 -68 -240 Weight 50.571 kg Intake: IV Fluids 625 408 LR 625 NS (0.9%) 408 IVPB 260 ABX - FLAGYL 160 Zosyn 100 Medicated IV 142 CC - Propofol/Diprivan 142 TPN/PPN 1244 Oral 0 Output: EMELIA #1 270 240 120 EMELIA #2 210 165 50 Borrero 500 1575 70 O2/Vent: NC 4L Infusions: PPN @ 100cc/hr Current Medications: Acetaminophen (Tylenol Adult Liq*) 650 mg PO Q6H PRN PRN Reason: TEMP EQUAL OR GREATER 101 F Albuterol (Ventolin 2.5 Mg/3 Ml Neb.Radha*) 2.5 mg INH Q4H PRN PRN Reason: SOB/WHEEZING Clotrimazole (Clotrimazole 1%*) 1 applic TOPICAL BID [facility] Last Admin: 03/21/18 08:44 Dose: 1 applic Fentanyl (Duragesic Patch 25 Mcg/Hr*) 25 mcg TRANSDERM Q72H [facility] Last Admin: 03/20/18 20:53 Dose: 25 mcg Hydromorphone HCl (Dilaudid Inj1s*) 1 mg IV SLOW PU Q4H PRN PRN Reason: PAIN - MILD TO MODERATE Last Admin: 03/21/18 08:32 Dose: 1 mg Hydromorphone HCl (Dilaudid Inj1s*) 2 mg IV SLOW PU Q4H PRN PRN Reason: PAIN - SEVERE Last Admin: 03/21/18 05:50 Dose: 2 mg Propofol (Diprivan*) 100 mls @ 3.096 mls/hr IV .(Initial Rate) [facility]; Protocol Last Admin: 03/20/18 11:57 Dose: 17.3 mls/hr Dextrose 1,000 ml/ Amino Acids 850 ml/ Sterile Water 150 ml/Fat Emulsion Intravenous 500 ml/ Sodium Chloride 100 meq/Potassium Chloride 50 meq/Potassium Phosphate 15 mmole/Calcium Gluconate 15 meq/Magnesium Sulfate 10 meq/ Multivitamins 10 ml/ Trace Metals 1 ml/ Nutrition ( Parenteral) 2,600.721 mls @ 108.422 mls/hr IV 1700 [facility]; Protocol Last Admin: 03/20/18 18:30 Dose: 108.422 mls/hr Cefepime HCl (Maxipime 2 Gm In Dextrose Duplex (*)) 2 gm in 50 mls @ 100 mls/ hr IV Q12H [facility] Last Admin: 03/21/18 01:11 Dose: 100 mls/hr Metronidazole/Sodium Chloride (Flagyl 500 Mg Ivpb*) 500 mg in 100 mls @ 100 mls /hr IVPB Q8H [facility] Last Admin: 03/21/18 06:08 Dose: 100 mls/hr Lidocaine (Lidoderm 5% Patch*) 1 patch TRANSDERM DAILY [facility] Last Admin: 03/21/18 08:32 Dose: 1 patch Lorazepam (Ativan Inj*) 0.5 mg IV PUSH Q6H PRN PRN Reason: ANXIETY Last Admin: 03/21/18 10:00 Dose: 0.5 mg Miconazole Nitrate (Monistat 2%*) 1 applic TOPICAL BID [facility] Last Admin: 03/21/18 08:44 Dose: 1 applic Ondansetron HCl (Zofran Inj*) 4 mg IV Q4H PRN PRN Reason: NAUSEA/VOMITING Last Admin: 03/17/18 20:04 Dose: 4 mg Oxycodone HCl (Roxycodone Tab*) 10 mg PO Q4H PRN PRN Reason: PAIN Last Admin: 03/20/18 18:32 Dose: 10 mg Pantoprazole Sodium (Protonix Iv*) 40 mg IV DAILY [facility] Last Admin: 03/21/18 08:32 Dose: 40 mg Pharmacy Profile Note (Lidocaine Patch Remove*) 1 note N/A 2100 [facility] Last Admin: 03/20/18 21:08 Dose: Not Given Pharmacy Profile Note (Fentanyl Patch Check Q Shift) 1 note N/A 0700,1900 [facility] Last Admin: 03/21/18 07:22 Dose: 1 note Physical Exam: General: awake, alert, cachetic Head: normocephalic, atraumatic HEENT: no pallor, no icterus, moist mucous membranes Neck: soft, supple, no jvd CVS: normal rate, regular, no murmur Resp: bilateral air entry, no rhales/wheeze/rhonchi Abdomen: soft, midline surgical scare+, nondistended, EMELIA+ Ext: pulses+, warm, no edema Skin: intact Neuro: awake, alert, no distress, moves all ext Labs: Laboratory Results - last 24 hr 03/21/18 03/21/18 03/21/18 02:12 05:45 05:45 WBC 12.8 H RBC 3.35 L Hgb 10.9 L Hct 32 L MCV 97 MCH 33 H MCHC 34 RDW 21 H Plt Count 332 MPV 7.8 Patient Temperature Not Reportable ABG pH 7.49 H ABG pH (Temp Correct) Not Reportable ABG pCO2 40 ABG pCO2 (Temp Corrct Not Reportable ABG pO2 94 ABG pO2 (Temp Correct Not Reportable ABG HCO3 30.1 ABG O2 Saturation 99.5 H ABG Base Excess 6.6 H Respiration Rate Not Reportable O2 Delivery Device Bipap Ventilator Type Not Reportable Vent Mode Not Reportable FiO2 60 Inspiratory Time Not Reportable PEEP Not Reportable Pressure Support Not Reportable Pressure Control Not Reportable EPAP 5 IPAP 10 BiPAP Not Reportable Sodium 131 L Potassium 3.5 Chloride 99 L Carbon Dioxide 33 H BUN 9 Creatinine < 0.30 L Est GFR ( Amer) 286.1 Est GFR (Non-Af Amer) 236.5 BUN/Creatinine Ratio 30.0 H Glucose 170 H Calcium 7.0 L Phosphorus 2.6 Magnesium 1.5 L Total Bilirubin 0.40 Direct Bilirubin 0.10 Indirect Bilirubin 0.3 AST 22 ALT 13 Alkaline Phosphatase 179 H Total Protein 3.5 L Albumin < 1.5 L Globulin 2.0 Albumin/Globulin Ratio 0.8 L Prealbumin 3 L Triglycerides 130 Microbiology 03/19/18 17:20 Gram Stain - Final Body Fluid Body Fluid Culture - Preliminary Gram Negative Bacilli 03/20/18 06:43 Aerobic Blood Culture - Preliminary Blood Arterial No Growth Day 1 Anaerobic Blood Culture - Preliminary No Growth Day 1 03/20/18 06:43 Aerobic Blood Culture - Preliminary Blood Arterial No Growth Day 1 Anaerobic Blood Culture - Preliminary No Growth Day 1 03/16/18 18:40 Aerobic Blood Culture - Preliminary Blood Venous No Growth Day 4 Anaerobic Blood Culture - Preliminary No Growth Day 4 03/16/18 18:40 Aerobic Blood Culture - Preliminary Blood Venous No Growth Day 4 Anaerobic Blood Culture - Preliminary No Growth Day 4 Imaging: CT abd/pelvis 03/19 - free intraperitoneal air cxr 03/19 - ett above govind, pulm congestion+ Assessment: 48y F w/pmhx of Rectal Ca s/p chemorad and chemo-adj, s/p surgery 2007, ETOH abuse, peripheral neuropathy, chronic opiate use, failure to thrive; presented initially with a mechanical fall and Right hip fracture. She is s/p Right hip ORIF 03/14/2018. She also had a Righit distal radial bone fx 01/2018. She was recently in ICU for volume overload and hypoxic respiratory failure requiring hiflow therapy. She was just moved out of ICU today, when she developed acute abd pain on the medical floor. A CT abd/pelvis demonstrated free intraperitoneal air. Surgery consult called and she was takne to the OR. -Cecal perforation ; s/p Exploratory laporatomy, with Right hemicolectomy and end-end anastamosis - 03/19 -Peritonitis, with gram neg bacilli -Acute hypoxic respiratory failure -Pulmonary congestion -Anemia -Right hip fracture s/p Right ORIF 03/14 -E.coli and Pseudomonas UTI -Failure to thrive -ETOH abuse Plan: Neuro- awake, alert. Asp prec. Delirium prec. -pain control needed; may need pain consultation; started fentanyl patch 25mcg overnight; on dilaudid PRN. no PO meds yet. increase IV as needed, patch as needed. if not controlled tomorrow then will consult. Appears to not be in pain when you see her -anxiety; started Ativan 0.5mg IV BID, prn for now; but will require it BID CVS- BP stable. d/c IVF. on PPN @ 100cc/hr. Lasix 20mg IV x1 today agian repeat. She easily can overload given low oncotic pressure, re-eval for diuretics daily. -IV abx for UTI/Peritonitis. Resp- NC 4 L, no distress. CXR minimal/no congestion, no infiltrates -IV lasix 20mg x1 today -Bronchodilators PRN. ID- tmax 100, wbc 12. UTi with E.coli and Psedumonas+. -Cecal perforation and pus in abd+, s/p washout. Suspect Peritonitis component. Peritoneal fluid gram neg bacilli, pending Identification -Vulvar swelling,induration; started miconazole (day#2) -Changed zosyn to Cefepime (day#2) and Flagyl (day #2) for abdominal and vaginal /vulvar coverage GI- -NPO, NGT to low interm suction. Some gas passed. no plan for PO yet. cont PPN -surgical site intact, cont wound care. EMELIA outputs 510 and 375; noted -plan for PICC and transition to TPN tomorrow -watchful waiting; discussed case with surgeon Renal- Cr okay. K 3.3, mag low. Replete Mg 2gm IV and KCL 40meq. PPN will have to be increased for next bag, will discuss with pharmacy -lasix 20mg IV x1 today, PRN as needed daily Heme- anemia, hg stable 10-11. plt okay. Heparin sq/SCD for DVT proph Endo- fingerstick prn Musculsk- pressure ulcer prophylaxis. Bedrest today Wounds- wound care to surgical site, monitor EMELIA outputs Nutrition- NPO; NGT low intermittent; PPN infusion; plan for PICC and TPN tomorrow DVT prophylaxis: SCD/heparin sq GI prophylaxis: PPI Central Line: no Arterial Line: yes Borrero Cathetor: yes Disposition: Patient requires Critical Care/ICU for post perforation laparotomy Patient Clinical Status: guarded, stable Code Status: full code Jose Frank MD Specialist Field Engineer (Electronically Signed)
[2018-03-21] MEDS ORDERED: KCL 20 MEQ/100 ML IVPREMIX* 20 MEQ/100 ML BAG IV SCH (11:00)
[2018-03-21] MEDS ORDERED: Magnesium Sulfate 2 GM IV* 2 GM/50 ML BAG IVPB ONE (11:00)
[2018-03-21] MEDS: fentaNYL PATCH 50 MCG/HR TRANSDERM SCH (12:18)
--- NOTE | 2018-03-21 12:45 | PN ---
Progress Note - Progress Note Date of Service: 03/21/18 SOAP: Subjective: C/o abdominal pain. Reported flatus but no BM. Objective: Vital Signs Temp 99.1 F 03/21/18 12:00 Pulse 121 03/21/18 10:01 Resp 19 03/21/18 12:18 BP 115/82 03/21/18 10:00 Pulse Ox 93 03/21/18 10:01 Gen: cachetic, chronically ill appearing. Abd: incisions c/d/i, no erythema; JPs SS; ND; tender diffusely. Scant BS. Ext: edematous Intake & Output 03/20/18 03/21/18 03/21/18 18:59 06:59 18:59 Intake Total 767 1912 Output Total 980 1980 240 Balance -213 -68 -240 Weight 111 lb 7.849 oz Intake: IV Fluids 625 408 LR 625 NS (0.9%) 408 IVPB 260 ABX - FLAGYL 160 Zosyn 100 Medicated IV 142 CC - Propofol/Diprivan 142 TPN/PPN 1244 Oral 0 Output: EMELIA #1 270 240 120 EMELIA #2 210 165 50 [place] 500 1575 70 Laboratory Results - last 24 hr 03/21/18 03/21/18 03/21/18 02:12 05:45 05:45 WBC 12.8 H RBC 3.35 L Hgb 10.9 L Hct 32 L MCV 97 MCH 33 H MCHC 34 RDW 21 H Plt Count 332 MPV 7.8 Patient Temperature Not Reportable ABG pH 7.49 H ABG pH (Temp Correct) Not Reportable ABG pCO2 40 ABG pCO2 (Temp Corrct Not Reportable ABG pO2 94 ABG pO2 (Temp Correct Not Reportable ABG HCO3 30.1 ABG O2 Saturation 99.5 H ABG Base Excess 6.6 H Respiration Rate Not Reportable O2 Delivery Device Bipap Ventilator Type Not Reportable Vent Mode Not Reportable FiO2 60 Inspiratory Time Not Reportable PEEP Not Reportable Pressure Support Not Reportable Pressure Control Not Reportable EPAP 5 IPAP 10 BiPAP Not Reportable Sodium 131 L Potassium 3.5 Chloride 99 L Carbon Dioxide 33 H BUN 9 Creatinine < 0.30 L Est GFR ( Amer) 286.1 Est GFR (Non-Af Amer) 236.5 BUN/Creatinine Ratio 30.0 H Glucose 170 H Calcium 7.0 L Phosphorus 2.6 Magnesium 1.5 L Total Bilirubin 0.40 Direct Bilirubin 0.10 Indirect Bilirubin 0.3 AST 22 ALT 13 Alkaline Phosphatase 179 H Total Protein 3.5 L Albumin < 1.5 L Globulin 2.0 Albumin/Globulin Ratio 0.8 L Prealbumin 3 L Triglycerides 130 Microbiology 03/19/18 17:20 Gram Stain - Final Body Fluid Body Fluid Culture - Preliminary Gram Negative Bacilli 03/20/18 06:43 Aerobic Blood Culture - Preliminary Blood Arterial No Growth Day 1 Anaerobic Blood Culture - Preliminary No Growth Day 1 03/20/18 06:43 Aerobic Blood Culture - Preliminary Blood Arterial No Growth Day 1 Anaerobic Blood Culture - Preliminary No Growth Day 1 03/16/18 18:40 Aerobic Blood Culture - Preliminary Blood Venous No Growth Day 4 Anaerobic Blood Culture - Preliminary No Growth Day 4 03/16/18 18:40 Aerobic Blood Culture - Preliminary Blood Venous No Growth Day 4 Anaerobic Blood Culture - Preliminary No Growth Day 4 Active Medications Generic Name Dose Route Start Last Admin Trade Name Freq PRN Reason Stop Dose Admin Acetaminophen 650 mg 03/20/18 09:03 Tylenol Adult Liq* PO Q6H PRN TEMP EQUAL OR GREATER 101 F Albuterol 2.5 mg 03/19/18 21:37 Ventolin 2.5 Mg/3 Ml Neb.Radha* INH Q4H PRN SOB/WHEEZING Clotrimazole 1 applic 03/09/18 23:30 03/21/18 08:44 Clotrimazole 1%* TOPICAL 1 applic BID RIKKI Administration Fentanyl 50 mcg 03/21/18 12:00 03/21/18 12:18 Duragesic Patch 50 Mcg/Hr* TRANSDERM 50 mcg Q72H RIKKI Administration Heparin Sodium (Porcine) 5,000 units 03/21/18 14:00 Heparin Vial(*) SUBCUT Q8HR RIKKI Hydromorphone HCl 1 mg 03/20/18 20:40 03/21/18 08:32 Dilaudid Inj1s* IV SLOW PU 1 mg Q4H PRN Administration PAIN - MILD TO MODERATE Propofol 100 mls @ 3.096 mls/hr 03/19/18 22:00 03/20/18 11:57 Diprivan* IV 17.3 mls/hr .(Initial Rate) RIKKI Administration Protocol 10 MCG/KG/MIN Dextrose 1,000 ml/ Amino Acids 2,600.721 mls @ 108.422 mls/hr 03/20/18 17:00 03/20/18 18:30 850 ml/ Sterile Water 150 ml/ IV 108.422 mls/hr Fat Emulsion Intravenous 500 1700 RIKKI Administration ml/ Sodium Chloride 100 meq/ Potassium Chloride 50 meq/ Potassium Phosphate 15 mmole/ Protocol Calcium Gluconate 15 meq/ Magnesium Sulfate 10 meq/ Multivitamins 10 ml/ Trace Metals 1 ml/ Nutrition ( Parenteral) Cefepime HCl 2 gm in 50 mls @ 100 mls/hr 03/21/18 01:00 03/21/18 01:11 Maxipime 2 Gm In Dextrose Duplex (*) IV 100 mls/hr Q12H RIKKI Administration Metronidazole/Sodium Chloride 500 mg in 100 mls @ 100 mls/hr 03/20/18 22:00 03/21/18 06:08 Flagyl 500 Mg Ivpb* IVPB 100 mls/hr Q8H RIKKI Administration Potassium Chloride 20 meq in 100 mls @ 50 mls/hr 03/21/18 11:00 Potassium Chloride 20 Meq/100 Ml Ivpremix* IV 03/21/18 14:59 Q2H RIKKI Lidocaine 1 patch 03/10/18 02:00 03/21/18 08:32 Lidoderm 5% Patch* TRANSDERM 1 patch DAILY RIKKI Administration Lorazepam 0.5 mg 03/20/18 20:34 03/21/18 10:00 Ativan Inj* IV PUSH 0.5 mg Q6H PRN Administration ANXIETY Miconazole Nitrate 1 applic 03/20/18 21:00 03/21/18 08:44 Monistat 2%* TOPICAL 1 applic BID RIKKI Administration Ondansetron HCl 4 mg 03/09/18 21:35 03/17/18 20:04 Zofran Inj* IV 4 mg Q4H PRN Administration NAUSEA/VOMITING Oxycodone HCl 10 mg 03/19/18 10:20 03/20/18 18:32 Roxycodone Tab* PO 10 mg Q4H PRN Administration PAIN Pantoprazole Sodium 40 mg 03/19/18 16:00 03/21/18 08:32 Protonix Iv* IV 40 mg DAILY RIKKI Administration Pharmacy Profile Note 1 note 03/10/18 21:00 03/20/18 21:08 Lidocaine Patch Remove* N/A Not Given [address] [facility] Pharmacy Profile Note 1 note 03/21/18 07:00 03/21/18 07:22 Fentanyl Patch Check Q Shift N/A 1 note 0700,1900 [facility] Administration Assessment: 48 F with chronic pancreatitis, chronic alcoholism, malnutrition, peripheral neuropathy, s/p ORIF right hip, POD#2 s/p dx laparoscopy, exploratory laparotomy, right hemicolectomy, abdominal washout for cecal perforation. Improving. Plan: Cont drains. Cont hyperalimentation. Cont abx. PUD/DVT prophylaxis.
[2018-03-21] MEDS: KCL 10 MEQ/50 ML IVPREMIX* 10 MEQ/50 ML BAG IV SCH ×4 (13:18→17:30)
[2018-03-21] MEDS: Heparin VIAL(*) 5000 UNITS/ML VIAL (FIVE THOUSAND) SUBCUT SCH (14:08)
--- NOTE | 2018-03-21 14:35 | CONSULT ---
Consult Consult: INPATIENT PAIN CONSULTATION Radha Valdez is a 48 year old female. She has a medical history of rectal cancer diagnosed 8 years ago. She had chemo and radiation for this. She developed a peripheral neuropathy as a result of the chemo. She developed pancreatitis in 2015 and has had recurrent bouts. Last summer she had increasing weakness in her legs which progressed rapidly. There was concern for a paraneoplastic syndrome. She received IVIG in late December. She has had abdominal pain after the IVIG. She fell and came to the ER March 09 and was found to have a right hip fracture. She had surgical repair. Her post op course was complicated by pulmonary edema which responded to diuresis. She then developed abdominal pain. She had a CT scan showing free air. She went to the OR on Mar 19 for an exploratory lap and a right hemicolectomy. She has had a lot of pain post op. I am asked to see her. She is on a Fentanyl patch 50 mcg/hr ( increased from 25 this am) and IV dilaudid 1-2 mg IV Q4. She is somnolent now. PAST MEDICAL HISTORY: Anorexia, Osteoporosis, Vertebroplasty, Rectal Ca, Peripheral Neuropathy, Hip Fracture Allergies Allergy/AdvReac Type Severity Reaction Status Date / Time ciprofloxacin AdvReac Mild Diarrhea Verified 02/11/18 15:29 Current Medications Acetaminophen (Tylenol Adult Liq*) 650 mg PO Q6H PRN PRN Reason: TEMP EQUAL OR GREATER 101 F Albuterol (Ventolin 2.5 Mg/3 Ml Neb.Radha*) 2.5 mg INH Q4H PRN PRN Reason: SOB/WHEEZING Clotrimazole (Clotrimazole 1%*) 1 applic TOPICAL BID [facility] Last Admin: 03/21/18 08:44 Dose: 1 applic Fentanyl (Duragesic Patch 50 Mcg/Hr*) 50 mcg TRANSDERM Q72H [facility] Last Admin: 03/21/18 12:18 Dose: 50 mcg Heparin Sodium (Porcine) (Heparin Vial(*)) 5,000 units SUBCUT Q8HR [facility] Last Admin: 03/21/18 14:08 Dose: 5,000 units Hydromorphone HCl (Dilaudid Inj1s*) 1 mg IV SLOW PU Q4H PRN PRN Reason: PAIN - MILD TO MODERATE Last Admin: 03/21/18 14:08 Dose: 1 mg Propofol (Diprivan*) 100 mls @ 3.096 mls/hr IV .(Initial Rate) [facility]; Protocol Last Admin: 03/20/18 11:57 Dose: 17.3 mls/hr Dextrose 1,000 ml/ Amino Acids 850 ml/ Sterile Water 150 ml/Fat Emulsion Intravenous 500 ml/ Sodium Chloride 100 meq/Potassium Chloride 50 meq/Potassium Phosphate 15 mmole/Calcium Gluconate 15 meq/Magnesium Sulfate 10 meq/ Multivitamins 10 ml/ Trace Metals 1 ml/ Nutrition ( Parenteral) 2,600.721 mls @ 108.422 mls/hr IV 1700 [facility]; Protocol Last Admin: 03/20/18 18:30 Dose: 108.422 mls/hr Cefepime HCl (Maxipime 2 Gm In Dextrose Duplex (*)) 2 gm in 50 mls @ 100 mls/ hr IV Q12H [facility] Last Admin: 03/21/18 13:31 Dose: 100 mls/hr Metronidazole/Sodium Chloride (Flagyl 500 Mg Ivpb*) 500 mg in 100 mls @ 100 mls /hr IVPB Q8H [facility] Last Admin: 03/21/18 06:08 Dose: 100 mls/hr Potassium Chloride (Potassium Chloride 10 Meq/50 Ml Ivpremix*) 10 meq in 50 mls @ 25 mls/hr IV Q1H [facility] Stop: 03/21/18 16:59 Last Admin: 03/21/18 13:18 Dose: 25 mls/hr Lidocaine (Lidoderm 5% Patch*) 1 patch TRANSDERM DAILY [facility] Last Admin: 03/21/18 08:32 Dose: 1 patch Lorazepam (Ativan Inj*) 0.5 mg IV PUSH Q6H PRN PRN Reason: ANXIETY Last Admin: 03/21/18 10:00 Dose: 0.5 mg Miconazole Nitrate (Monistat 2%*) 1 applic TOPICAL BID [facility] Last Admin: 03/21/18 08:44 Dose: 1 applic Ondansetron HCl (Zofran Inj*) 4 mg IV Q4H PRN PRN Reason: NAUSEA/VOMITING Last Admin: 03/17/18 20:04 Dose: 4 mg Oxycodone HCl (Roxycodone Tab*) 10 mg PO Q4H PRN PRN Reason: PAIN Last Admin: 03/20/18 18:32 Dose: 10 mg Pantoprazole Sodium (Protonix Iv*) 40 mg IV DAILY [facility] Last Admin: 03/21/18 08:32 Dose: 40 mg Pharmacy Profile Note (Lidocaine Patch Remove*) 1 note N/A 2100 [facility] Last Admin: 03/20/18 21:08 Dose: Not Given Pharmacy Profile Note (Fentanyl Patch Check Q Shift) 1 note N/A 0700,1900 [facility] Last Admin: 03/21/18 07:22 Dose: 1 note SOCIAL HISTORY: Non smoker, quit 2010. Heavy drinker in past. Estranged from Vital Signs Temp Pulse Resp BP Pulse Ox 99.1 F 117 20 125/90 93 03/21/18 12:00 03/21/18 13:01 03/21/18 14:08 03/21/18 13:00 03/21/18 13:01 EXAM: GENERAL: Cachectic HEENT: NGT in place LUNGS: Clear anteriorly HEART: Reg rhythm ABDOMEN: Soft EXTREMITIES: Decreased bulk NEUROLOGIC: Somnolent but arousable ASSESSMENT: 1. S/P Exp Lap with hemicolectomy 2. Right Hip fracture 3. History of alcohol abuse PLAN: Pain seems better controlled according to family. Will change dilaudid IV to 0.5 mg IV Q2 PRN. Increase Ativan to Q4 PRN. Continue fentanyl patch and we will hold off on [employer]
[2018-03-21] MEDS ORDERED: Metoprolol Tartrate IV* 1 MG/ML 5 ML VIAL IV ONE ×2 (16:23→22:27)
[2018-03-21] MEDS ORDERED: Metoprolol Tartrate IV* 1 MG/ML 5 ML VIAL ONE (16:27)
[2018-03-21] MEDS ORDERED: Furosemide IV* 10 MG/ML VIAL (40 MG) ONE (16:27)
[2018-03-21] MEDS: TPN* 24 HR with D10W 1000 ML BAG* 1,000 ML, Amino Acid Infusion 10%* 850 ML, Sterile Wa... IV SCH ×12 (18:03)
[2018-03-21] MEDS ORDERED: Succinylcholine* 20 MG/ML 10 ML VIAL ONE ×2 (20:11→20:19)
[2018-03-21] MEDS ORDERED: Etomidate* 2 MG/ML 20 ML VIAL (40 MG) ONE (20:19)
[2018-03-21] MEDS: Propofol* 100 ML IV SCH (20:20)
[2018-03-21] MEDS ORDERED: Dexmedetomidine* 400 MCG in NS 0.9% 100 ML* 96 ML IVPB SCH (21:00)
[2018-03-21] MEDS ORDERED: Iohexol 350* (CONTRAST) 500 ML MDV IV ONE (22:08)
[2018-03-21] MEDS ORDERED: Furosemide IV* 10 MG/ML 2 ML VIAL (20 MG) IV ONE (22:27)
[2018-03-21] MEDS: Lidocaine Patch REMOVE* 1 NOTE MISC SCH (22:45)
[2018-03-21] MEDS ORDERED: Acetaminophen SUPP* 650 MG SUPP PR PRN (23:24)
--- NOTE | 2018-03-21 23:52 | PN ---
Hospitalist Progress Note Date of Service: 03/21/18 Overnight hospitalist note: Nurse reported to me that the patient is getting intubated earlier in the night. She had spoke to the covering attending Dr. Frank. After intubation, placed on PEEP of 10, FiO2 of 100%, and was sating only 88%. Remaining tachycardic 130-140's Sinus tachycardia. Discussed with Dr. Frank, CTA ordered. CTA negative for PE, moderate pleural effusion, with patchy infiltrate suggestive of pneumonia vs. ARDS. Discussed the findings with Dr. Frank as well. Further Dr. Quesada (ER) placed a central line- femoral, but had few failed attempts and had punctured the right carotid. Patient now has a hematoma at the right neck. Discussed with Dr. Frank- advised placing pressure at the right neck/ carotid region. CXR ordered to check for any pneumothorax. Dr. Frank to come and evaluate patient.
[2018-03-22] MEDS ORDERED: Vancomycin(*) 1,000 MG in NS 0.9% 250 ML* 250 ML IVPB ONE ×2 (00:32→01:00)
[2018-03-22] MEDS ORDERED: NS 0.9% 1000 ML** 1,000 ML IV ONE (00:33)
[2018-03-22] MEDS ORDERED: Norepinephrine 16MCG/ML IVPRE* 4,000 MCG/250 ML BAG IV ONE ×2 (00:52→04:32)
[2018-03-22] MEDS ORDERED: Midazolam* 1 MG/ML 2 ML VIAL (2 MG) ONE (01:36)
[2018-03-22] MEDS: Clotrimazole 1% CREAM* 45 GM TOPICAL SCH ×3 (02:22→21:30)
[2018-03-22] MEDS: Heparin VIAL(*) 5000 UNITS/ML VIAL (FIVE THOUSAND) SUBCUT SCH ×4 (02:24→21:36)
[2018-03-22] MEDS: Miconazole TOPICAL CREAM 2%* 30 GM TOPICAL SCH ×3 (03:07→21:42)
--- NOTE | 2018-03-22 03:10 | PN ---
Progress Note - Progress Note Date of Service: 03/22/18 Note: Critical Care called due to respiratory distress. Unclear etiology, but initially suspected to be from pulm congestion, possible aspiration. she did not tolerate hiflow, was not tolerating NIV either. Intubated by ER. Started on sedation propofol Hypoxic after, peep incr to 10, 100% fio2; slowly sats improved Remained tachycardic, sinus tachy it appears BP was 100s, then dropped later Central line placed by ER, attmpts in IJ and SC, then femoral successful. I ordered for IVF bolus and Levophed after discussing with hospitalist. She is currently on levophed, making urine. I came in and placed new left femoral Triple lumen cathetors and arterial line emergently and sterily. Tmax 103.8 Will send off CBC, CMP, LA, procal, Blood cx x2, sputum culture. Already on Cefepime and Flagyl, added vanco 1 gm x1 dose now CTA chest done after intubation; no PE, bialateral moderate pleural effusions noted, areas of pulm infiltrates, congestion vs ARDS pattern Will keep on peep 10 obtain ABG now too add vasopressin additionally. Assessment Acute hypoxic respiratory failure r/o ARDS possible aspiration? Severe Sepsis with Shock Peritonitis Cecal perforation; s/p colectomy 03/19 Plan - as above Total Critical Care time 45 min, not including procedures Jose Frank MD Water/Wastewater Project Engineer
--- NOTE | 2018-03-22 03:14 | PN ---
Progress Note - Progress Note Date of Service: 03/22/18 Note: Central Line Procedure Note Indication: venous access Diagnosis: septic shock, acute hypoxic respiratory failure Performed by: Jose Frank MD Consent: Emergent [place] Protocol: Time-out was performed and the correct patient and site were verified - Prior labs/history was reviewed prior to procedure - Full sterile precautions with chlorhexidine/full drapes/gowns/gloves utilized - Left femoral vein visualized with ultrasound - Vessel accessed under ultrasound guidance with return of nonpulsatile blood. A guidewire was passed into vessel and confirmed in vessel with ultrasound. 1 attempt was made to access vessel. Vessel was dilated and cathetor was passed over wire into vessel. All ports demonstrated good blood return and flushed. Catheter was sutured to site and dressing applied. Adequate hemostasis was achieved EBL <5 cc No immediate complications noted, patient tolerated procedure well. Jose Frank MD Wet Plant Operator (Electronically Signed)
[2018-03-22] MEDS ORDERED: Albumin Human 5%* 12.5 GM/250 ML BTL IV ONE ×2 (03:15→04:15)
--- NOTE | 2018-03-22 03:15 | PN ---
Progress Note - Progress Note Date of Service: 03/22/18 Note: Arterial Line Procedure Note Indication: frequent arterial blood gases , invasive hemodynamic monitoring Diagnosis: septic shock, acute hypoxic resp failure Performed by: Jose Frank MD Consent: Emergent [place] Protocol: Time-out was performed and the correct patient and site were verified - Prior labs/history was reviewed prior to procedure - Full sterile precautions with chlorhexidine/full drapes/gowns/gloves utilized - Left femoral artery visualized with US - Vessel accessed with return of pulsatile blood. One attempt was made to access vessel. A cathetor was threaded over wire into vessel. Good arterial waveform was observed on monitor. - Arterial Catheter was sutured to site; dressing applied to site. EBL <5 cc No immediate complications noted, patient tolerated procedure well. Jose Frank MD Staffing Consultant (Electronically Signed)
[2018-03-22] MEDS: Cefepime 2 GM in Dextrose(*) 2 GM/50 ML BAG IV SCH ×2 (03:16→13:25)
[2018-03-22] MEDS: metroNIDAZOLE IV 500 MG/100ML* 500 MG/100 ML BAG IVPB SCH ×3 (03:16→19:54)
[2018-03-22] MEDS: Vasopressin* 100 UNITS in D5W 250 ML BAG* 245 ML IVPB SCH (03:44)
[2018-03-22] MEDS ORDERED: Midazolam* 1 MG/ML 2 ML VIAL (2 MG) IV ONE (04:14)
--- NOTE | 2018-03-22 04:21 | PN ---
Sepsis Event Evaluation Date of Evaluation: 03/22/18 Time of Evaluation: 04:00 Current Stage of Sepsis: Septic Shock Vital Signs - Last 12 Hours: Vital Signs - 12 hr Temp Pulse Resp BP Pulse Ox 03/22/18 02:00 23 03/22/18 01:10 139 99/81 100 03/22/18 01:05 139 102/85 100 03/22/18 01:01 144 98 03/22/18 01:00 142 18 95/80 97 03/22/18 00:55 148 77/61 90 03/22/18 00:51 146 66/54 87 03/22/18 00:46 131 68/51 91 03/22/18 00:40 143 76/53 89 03/22/18 00:35 140 70/48 90 03/22/18 00:31 139 71/49 91 03/22/18 00:25 141 81/61 94 03/22/18 00:20 141 72/59 93 03/22/18 00:15 145 82/60 94 03/22/18 00:10 148 83/62 93 03/22/18 00:05 149 105/85 92 03/22/18 00:01 149 94 03/22/18 00:00 103.8 F 150 24 89/63 94 03/21/18 23:45 145 86/66 98 03/21/18 23:30 146 97/77 97 03/21/18 23:15 143 99/78 98 03/21/18 23:06 141 98 03/21/18 23:01 141 98 03/21/18 23:00 141 25 96/77 97 03/21/18 22:45 141 96/75 97 03/21/18 22:30 140 101/83 98 03/21/18 22:15 141 105/83 99 03/21/18 22:12 140 110/89 99 03/21/18 22:05 141 99 03/21/18 22:00 23 03/21/18 21:30 144 89/74 91 03/21/18 21:15 145 95/79 91 03/21/18 21:01 145 90 03/21/18 21:00 145 24 106/76 90 03/21/18 20:33 134 113/89 90 03/21/18 20:01 136 25 91 03/21/18 20:00 139 28 111/84 91 03/21/18 19:29 43 03/21/18 19:20 31 03/21/18 19:01 134 24 90 03/21/18 19:00 133 25 124/86 89 03/21/18 18:01 121 23 95 03/21/18 18:00 121 24 120/89 95 03/21/18 17:35 24 03/21/18 17:01 115 24 91 03/21/18 17:00 114 28 129/91 91 Lactic Acid: 03/09/18 18:39 Lactic Acid 1.4 - Cardiopulmonary Exam Capillary Refill: < or = to 5 seconds Respiratory: Symmetrical Chest Expansion and Respiratory Effort, Clear to Palpation Cardiovascular: - - tachycardic, no murmur - Peripheral Pulse Exam Radial Pulses: Bilateral Normal Pedal Pulses: Bilateral Diminished Femoral Pulses: Bilateral Normal - Skin Exam Skin Exam: Pallor - [place] Coma Scale Best Eye Response: 1 - None Best Motor Response: 5 - Purposeful Movement Best Verbal Response: 1 - Intubated Coma Scale Total: 7.0 Assess/Plan/Problems-Billing Assessment: 48 yo F with PMH rectal Ca s/p chemo radiation and surgery in 2007, followed by Dr. Harry with elevated tumor markers, EtOH use d/o, peripheral neuropathy, failure to thrive with current BMI 13 who presented s/p mechanical fall found to have R hip fracture. on 02/04/18 pt was dx with R distal radial bone fx and placed in arm sling Status and Disposition: likely will need STR once stable, inpatient for now
[2018-03-22 04:23] LABS: Hematocrit 32 % (35-47); Hemoglobin 10.3 g/dl (12.0-16.0); Mean Corpuscular HGB Conc 33 g/dl (31-36); Mean Corpuscular Hemoglobin 32 pg (27-31); Mean Corpuscular Volume 97 fL (80-97); Mean Platelet Volume 8.1 fL (7.4-10.4); Platelet Count 328 10^3/ul (150-450); Red Blood Count 3.25 10^6/ul (4.00-5.40); Red Cell Distribution Width 19 % (10.5-15)
[2018-03-22 04:37] LABS: ALT 10 U/L (7-52); AST 25 U/L (13-39); Alkaline Phosphatase 159 U/L (34-104); Anion Gap 5 mmol/L (2-11); CO2 Carbon Dioxide 27 mmol/L (22-32); Calcium 6.7 mg/dL (8.6-10.3); Chloride 99 mmol/L (101-111); EGFR African American 286.1 (>60); EGFR Non-African American 236.5 (>60); Glucose 109 mg/dL (70-100); Potassium 3.7 mmol/L (3.5-5.0); Sodium 131 mmol/L (135-145); Total Protein 3.5 g/dL (6.4-8.9)
[2018-03-22] MEDS ORDERED: Norepinephrine 16MCG/ML IVPRE* 4,000 MCG/250 ML BAG IV SCH (05:00)
[2018-03-22 06:06] LABS: Blood Urea Nitrogen 16 mg/dL (6-24)
[2018-03-22 06:09] LABS: Hematocrit 32 % (35-47); Hemoglobin 10.6 g/dl (12.0-16.0); Mean Corpuscular HGB Conc 33 g/dl (31-36); Mean Corpuscular Hemoglobin 32 pg (27-31); Mean Corpuscular Volume 98 fL (80-97); Mean Platelet Volume 7.8 fL (7.4-10.4); Platelet Count 314 10^3/ul (150-450); Red Cell Distribution Width 21 % (10.5-15); White Blood Count 12.7 10^3/ul (3.5-10.8)
[2018-03-22 06:25] LABS: Albumin 1.3 g/dL (3.2-5.2); Albumin/Globulin Ratio 0.6 (1-3); Globulin 2.2 g/dL (2-4)
[2018-03-22 06:36] LABS: Magnesium 1.7 mg/dL (1.9-2.7); Phosphorus 2.7 mg/dL (2.5-5.0)
[2018-03-22 06:40] LABS: ABS Basophils 0.1 10^3/ul (0-0.2); ABS Eosinophils 0 10^3/ul (0-0.6); ABS Lymphocytes 0.8 10^3/ul (1.0-4.8); ABS Monocytes 0.8 10^3/ul (0-0.8); ABS Neutrophils 11.3 10^3/ul (1.5-7.7); ABS Nucleated RBC 0 10^3/ul; Eosinophil % 0.2 %; Lymphocyte % 6.4 %; Nucleated Red Blood Cells % 0.2
--- NOTE | 2018-03-22 07:26 | PN ---
Date of Service: 03/22/18 - HD - 14 Critical Care Services: 48 yo F presented to [place] ED on 03/09/2018 after a fall two days prior. Since the fall she was unable to ambulate per family, also bilateral lower extremity edema and generalized weakness. On workup found to have a right intertrochanteric fracture. US BLE negative for DVT. CT brain negative for acute pathology. Admitted to the medical service. 03/10: Seen by orthopedics service, who recommended proceeding with ORIF when medically cleared. Found on workup to have new cirrhosis with decreased synthetic function and ammonia of 100, as well as failure to thrive. Options for goals of care, including palliative focused, discussed with family. 03/11: started on Rifaximin in addition to lactulose for elevated ammonia. ORIF postponed due to bacteremia; started on cefazolin. 03/13: repeat blood cultures negative. Cleared for surgery but high risk. 03/14: ORIF right femur fracture. 03/16: developed tachycardia. started on gentle fluid resuscitation. Found to have UTI with E.coli and Pseudomonas. Continued on Cefazolin 03/17: developed hypoxia, requiring 15L facemask. CTA done earlier showing bilateral pleural effusion. Given Lasix x 1. Transferred to ICU for vapotherm. 03/18: ID consulted. ABx changed to Zosyn for 7 day course. 03/19: Developed worsened abdominal pain. CT abdomen with free air. General surgery consulted and went to OR for exlap. Found to have cecal perforation; right hemicolectomy with primary anastamosis performed. Noted to have gross peritonitis with pus in gutters. Returned to ICU post procedure, on ventilator. 03/20: Successfully extubated. 03/21: passing gas. AFebrile. on PPN. ABx changed to Cefepime and Flagyl for combined abdominal and vaginal/vulvar coverage. Pain service consulted. 03/22: overnight pt developed increased hypoxia. intubated. requiring PEEP 10a nd FiO2 100% with sats only 88%. Tachycardic to 130s. CTA obtained; negative for PE but demonstrates bilateral patchy infiltrates suggestive of pneumonia vs ARDS. Vital Signs: Temp Pulse Resp BP SpO2 FiO2 100.9 F 118 22 105/87 92 80 03/22/18 05:15 03/22/18 05:15 03/22/18 05:00 03/22/18 05:15 03/22/18 05:15 03/22 04:07 Physical Exam: Gen: intubated, sedated HEENT: ETT in place Lungs: Coarse in lung bases bilaterally Cardiac: RRR Abdomen: Soft, NTND. EMELIA with serosanguinous drainage Extremities: warm, dry, edematous Neuro: sedated Fluid Balance (Past 24 Hours): I= O= Net Intake & Output 03/20/18 03/21/18 03/22/18 03/23/18 06:59 06:59 06:59 06:59 Intake Total 3025.6 2679 1599 Output Total 4300 2960 1905 Balance -1274.4 -281 -306 Weight 111 lb 5.842 oz 111 lb 7.849 oz 99 lb 13.91 oz Intake: IV Fluids 1861 1033 55 Hetastarch 500 LR 1000 625 NS (0.9%) 361 408 55 IVPB 105 260 375 ABX - CEFEPIME 60 ABX - FLAGYL 160 105 KCL 150 Zosyn 105 100 magnesium 60 Medicated IV 79.6 142 CC - Propofol/Diprivan 79.6 142 TPN/PPN 1244 1169 Oral 680 0 Packed Cells 300 Output: NG Tube Drainage Amount 150 EMELIA #1 170 510 350 EMELIA #2 240 375 170 [place] 3890 2075 1235 Other: Date of Last Bowel [id number] Movement # Bowel Movements 1 Estimated Stool Amount Medium ADLs: Meal Record Start: 03/09/18 23: 14 Freq: Status: Complete Protocol: Created 03/09/18 23:14 System (Rec: 03/09/18 23:14 System SSU-C11) Document 03/11/18 10:31 [id number] (Rec: 03/11/18 10:31 EUU1593 SSU-C09) Document 03/15/18 10:00 UNO7290 (Rec: 03/15/18 10:00 AZJ6135 SSU-C01) Document 03/16/18 10:00 GKE3791 (Rec: 03/16/18 13:25 XOF2510 SSU-C03) ADLs: Meal Record Start: 03/17/18 07: 45 Freq: 09,13,18 Status: Active Protocol: Created 03/17/18 07:45 [id number] (Rec: 03/17/18 07:45 MVD1799 ICU-M31) Document 03/17/18 09:00 INE8094 (Rec: 03/17/18 10:33 MWJ0463 ICU-C08) Document 03/17/18 13:00 ISU8932 (Rec: 03/17/18 15:41 FIP8383 ICU-C08) Document 03/17/18 18:00 EAL5791 (Rec: 03/17/18 19:03 PWW4188 ICU-C08) Document 03/18/18 09:00 TNR0654 (Rec: 03/18/18 12:01 ZPK6017 ICU-C07) Document 03/20/18 09:00 MTY9463 (Rec: 03/20/18 11:12 WNP0695 ISDEMO-M03 ) Document 03/20/18 13:00 EPI4268 (Rec: 03/20/18 13:39 FAP4584 ISDEMO-M03 ) Document 03/20/18 18:00 JZK5753 (Rec: 03/20/18 18:15 ZHX8834 ISDEMO-M03 ) Document 03/21/18 09:00 DTT7440 (Rec: 03/21/18 09:38 IMY8467 ICU-C16) Document 03/21/18 13:00 LQA4638 (Rec: 03/21/18 14:01 CHD4750 ICU-C16) Document 03/21/18 18:00 IHS0347 (Rec: 03/21/18 18:21 SMY2115 ICU-C16) ADLs: Meal Record Start: 03/18/18 15: 21 Freq: DAILY@0900,1400,1800 Status: Complete Protocol: Created 03/18/18 15:21 ERV9330 (Rec: 03/18/18 15:21 SOM7063 MED-C04) Document 03/18/18 18:00 MPO0791 (Rec: 03/18/18 21:13 QPY7596 MED-C14) Document 03/19/18 09:00 JZF9234 (Rec: 03/19/18 12:57 ABV1059 MED-C11) Document 03/19/18 14:00 TDP5924 (Rec: 03/19/18 15:43 TIS0836 MED-C11) Document 03/19/18 18:00 IEG7292 (Rec: 03/19/18 18:09 TWZ5714 MED-C11) Intake and Output Start: 03/09/18 17: 51 Freq: Status: Cancelled Protocol: Created 03/09/18 17:51 System (Rec: 03/09/18 17:51 System ED-M04) Document 03/11/18 14:55 ZXF1113 (Rec: 03/11/18 14:56 GNS4848 SSU-C09) Document 03/13/18 07:32 CCF9408 (Rec: 03/13/18 07:33 QES9564 SSU-C01) Intake and Output Start: 03/09/18 23: 14 Freq: DAILY@0600,1400,2200 Status: Complete Protocol: Created 03/09/18 23:14 System (Rec: 03/09/18 23:14 System SSU-C11) Document 03/10/18 01:15 AZU5003 (Rec: 03/10/18 01:44 SHF3594 SSU-M13) Document 03/10/18 03:43 APB1098 (Rec: 03/10/18 03:43 WDA4512 SSU-C11) Document 03/10/18 05:59 UCA2702 (Rec: 03/10/18 05:59 BED8926 SSU-M17) Document 03/10/18 06:45 CQG5352 (Rec: 03/10/18 06:46 GPI0246 SSU-M13) Document 03/10/18 21:58 FGA6885 (Rec: 03/10/18 21:58 QJB9624 SSU-M17) Document 03/11/18 00:18 IHJ6228 (Rec: 03/11/18 00:59 JTQ4141 SSU-C08) Document 03/11/18 05:21 CMP9240 (Rec: 03/11/18 05:22 YOO5994 SSU-M17) Document 03/11/18 05:21 JFZ1317 (Rec: 03/11/18 05:21 YDI7704 RU-M07) Document 03/11/18 10:31 MWA4841 (Rec: 03/11/18 10:31 NAG8624 SSU-C09) Document 03/11/18 14:55 GOE9076 (Rec: 03/11/18 14:56 KVI4188 SSU-C09) Document 03/11/18 21:25 HWN6401 (Rec: 03/11/18 21:46 IKH0945 SSU-M14) Document 03/11/18 21:33 IWR1397 (Rec: 03/11/18 21:34 EKL8833 SSU-M18) Document 03/12/18 06:00 WOZ9464 (Rec: 03/12/18 06:27 ZBG9372 SSU-C19) Document 03/12/18 14:00 LHY5195 (Rec: 03/12/18 14:43 SVQ7176 SSU-C08) Document 03/12/18 20:48 UTU4139 (Rec: 03/12/18 20:48 YLZ7892 SSU-M17) Document 03/12/18 22:06 CSB6029 (Rec: 03/12/18 22:07 HJH8945 SSU-M17) Document 03/13/18 00:05 WZJ7150 (Rec: 03/13/18 00:33 AOV2272 SSU-M17) Document 03/13/18 01:59 UZE5238 (Rec: 03/13/18 02:00 IRR6223 SSU-M17) Document 03/13/18 03:33 GIR5471 (Rec: 03/13/18 03:33 EJI6874 SSU-M17) Document 03/13/18 06:03 HMS6684 (Rec: 03/13/18 06:04 MCI7099 SSU-M17) Document 03/13/18 14:38 IAI6812 (Rec: 03/13/18 14:39 QUV3886 SSU-C06) Document 03/13/18 22:11 EWB3397 (Rec: 03/13/18 22:12 ISL3687 SSU-M17) Document 03/13/18 22:13 IBR5586 (Rec: 03/13/18 22:13 CJV4007 SSU-M17) Document 03/14/18 00:40 TJJ2829 (Rec: 03/14/18 00:41 RUR9371 SSU-M17) Document 03/14/18 02:29 HIV4806 (Rec: 03/14/18 02:30 FIK5066 SSU-M17) Document 03/14/18 05:38 VMD4884 (Rec: 03/14/18 05:38 AYV9067 SSU-M17) Document 03/14/18 05:42 GBX7436 (Rec: 03/14/18 05:43 THU9214 SSU-M17) Document 03/14/18 14:22 YYR2106 (Rec: 03/14/18 14:23 XHA9982 SSU-C06) Document 03/14/18 22:28 OPV9549 (Rec: 03/14/18 22:29 NMM9537 SSU-M18) Document 03/15/18 03:22 SBG5208 (Rec: 03/15/18 03:23 OEO2290 SSU-M18) Document 03/15/18 05:18 DNK0889 (Rec: 03/15/18 05:18 WNK0949 SSU-C03) Document 03/15/18 05:41 TZV4163 (Rec: 03/15/18 05:41 XRI0440 SSU-M18) Document 03/15/18 09:00 RWL0171 (Rec: 03/15/18 09:12 JOC4976 SSU-C01) Document 03/15/18 11:39 HYE4770 (Rec: 03/15/18 11:39 LQK1412 SSU-C01) Document 03/15/18 14:05 YGT5085 (Rec: 03/15/18 14:08 KGJ2180 SSU-C01) Document 03/15/18 18:45 LGX2235 (Rec: 03/15/18 22:23 HHC5913 SSU-M06) Document 03/16/18 05:12 KTG4843 (Rec: 03/16/18 05:13 KCP0861 SSU-C03) Document 03/16/18 14:00 LIV2603 (Rec: 03/16/18 14:16 CEK1155 SSU-C03) Document 03/16/18 22:00 PUA9679 (Rec: 03/16/18 22:18 AFO6009 MED-C11) Document 03/17/18 05:18 NIE0123 (Rec: 03/17/18 05:19 YDC5889 MED-C11) Intake and Output Start: 03/17/18 07: 45 Freq: Q1HR Status: Active Protocol: Created 03/17/18 07:45 SJT3193 (Rec: 03/17/18 07:45 WYR8535 ICU-M31) Document 03/17/18 09:00 FVE9765 (Rec: 03/17/18 10:13 VFL7142 ICU-C08) Document 03/17/18 10:00 NRI4614 (Rec: 03/17/18 11:50 EQG7397 ICU-C08) Document 03/17/18 11:00 XGP8194 (Rec: 03/17/18 11:50 AOB3558 ICU-C08) Document 03/17/18 14:00 UQK3550 (Rec: 03/17/18 14:30 TBC2147 ICU-C08) Document 03/17/18 15:00 WFG1112 (Rec: 03/17/18 15:39 QDY4598 ICU-C08) Document 03/17/18 16:00 PTS9476 (Rec: 03/17/18 18:27 ZNN4475 ICU-C08) Document 03/17/18 17:00 FAW5464 (Rec: 03/17/18 19:02 SJA5387 ICU-C08) Document 03/17/18 18:00 NMM3908 (Rec: 03/17/18 19:02 VZJ4139 ICU-C08) Document 03/17/18 21:50 FHB7171 (Rec: 03/17/18 21:50 DJR3238 ICU-C07) Document 03/17/18 23:45 UOM2008 (Rec: 03/17/18 23:46 CSP6406 ICU-C07) Document 03/18/18 00:08 CMP9904 (Rec: 03/18/18 00:08 VQD7068 ICU-M29) Document 03/18/18 03:08 WJE3018 (Rec: 03/18/18 03:12 HHT8263 ICU-C07) Document 03/18/18 04:19 JSH4183 (Rec: 03/18/18 04:22 PYB2034 ICU-C07) Document 03/18/18 05:00 CCG9314 (Rec: 03/18/18 05:05 NVD1356 ICU-C07) Document 03/18/18 06:25 OFH0890 (Rec: 03/18/18 06:26 KIU8071 ICU-C07) Document 03/18/18 11:59 VIL3629 (Rec: 03/18/18 11:59 XGS3288 ICU-C07) Document 03/19/18 20:26 IXO6200 (Rec: 03/20/18 01:30 CNF9301 ICU-C16) Document 03/19/18 21:00 FJY9980 (Rec: 03/19/18 22:18 NXE1078 ICU-C16) Document 03/19/18 22:00 UWC5288 (Rec: 03/19/18 22:18 GLQ2183 ICU-C16) Document 03/19/18 23:00 ZQU8865 (Rec: 03/19/18 23:15 RIQ4236 ICU-C16) Document 03/20/18 00:00 DDY0941 (Rec: 03/20/18 01:16 SEI2848 ICU-C16) Document 03/20/18 00:00 KJN2681 (Rec: 03/20/18 01:27 UOV1280 ICU-C16) Document 03/20/18 01:00 JPH9535 (Rec: 03/20/18 01:16 VUW6197 ICU-C16) Document 03/20/18 02:00 KIL5106 (Rec: 03/20/18 02:03 OUL7700 ICU-C16) Document 03/20/18 03:00 QTM3908 (Rec: 03/20/18 03:17 DIS1397 ICU-C16) Document 03/20/18 04:00 LLZ4589 (Rec: 03/20/18 04:08 WEE2750 ICU-C16) Document 03/20/18 05:00 OFU6187 (Rec: 03/20/18 05:59 PBE6376 ICU-C16) Document 03/20/18 05:59 GIL0842 (Rec: 03/20/18 05:59 MTS3558 ICU-C16) Document 03/20/18 06:15 PIB1757 (Rec: 03/20/18 06:16 BDM0335 ICU-C16) Document 03/20/18 07:00 WAA6116 (Rec: 03/20/18 07:16 FZJ8973 ICU-C16) Document 03/20/18 08:00 FPL3857 (Rec: 03/20/18 08:59 VOD0661 [facility]-M03 ) Document 03/20/18 08:59 XTV9155 (Rec: 03/20/18 08:59 FMF5996 ISDEMO-M03 ) Document 03/20/18 10:00 AOY6687 (Rec: 03/20/18 11:13 YLI5426 ISDEMO-M03 ) Document 03/20/18 11:00 JBB9239 (Rec: 03/20/18 11:13 AHP2637 ISDEMO-M03 ) Document 03/20/18 12:00 ZLM0928 (Rec: 03/20/18 13:37 OJR0733 ISDEMO-M03 ) Document 03/20/18 13:00 HVZ5126 (Rec: 03/20/18 13:37 DID8823 ISDEMO-M03 ) Document 03/20/18 14:00 LZV0741 (Rec: 03/20/18 14:07 UZK9146 ISDEMO-M03 ) Document 03/20/18 14:08 UEK7698 (Rec: 03/20/18 14:10 MSJ2345 ISDEMO-M03 ) Document 03/20/18 15:00 WHE9275 (Rec: 03/20/18 16:09 KIB0222 ISDEMO-M03 ) Document 03/20/18 16:00 JLM5365 (Rec: 03/20/18 16:09 CYW1107 ISDEMO-M03 ) Document 03/20/18 17:00 QWI5268 (Rec: 03/20/18 17:08 PQW4210 ISDEMO-M03 ) Document 03/20/18 18:00 RGF6636 (Rec: 03/20/18 18:54 AMW5144 ISDEMO-M03 ) Document 03/20/18 19:00 TNJ9071 (Rec: 03/20/18 19:55 RRJ7360 ICU-C16) Document 03/20/18 19:55 ZGB1592 (Rec: 03/20/18 19:55 KHH6705 ICU-C16) Document 03/20/18 21:00 ESE4843 (Rec: 03/20/18 22:07 VCL4155 ICU-C16) Document 03/20/18 21:00 INX0079 (Rec: 03/20/18 23:14 CXQ2080 ICU-C16) Document 03/20/18 22:00 XGL1372 (Rec: 03/20/18 22:07 BCB7702 ICU-C16) Document 03/20/18 23:00 GGJ9267 (Rec: 03/20/18 23:14 HZF8406 ICU-C16) Document 03/21/18 00:00 VOL1846 (Rec: 03/21/18 00:11 RYX6926 ICU-C16) Document 03/21/18 01:00 FED8626 (Rec: 03/21/18 01:15 TTP9866 ICU-C16) Document 03/21/18 01:27 EAZ9650 (Rec: 03/21/18 01:27 AIE0114 ICU-C16) Document 03/21/18 02:00 MOK0416 (Rec: 03/21/18 02:14 OLF4672 ICU-C16) Document 03/21/18 03:00 QSC8480 (Rec: 03/21/18 03:12 PXT0235 ICU-C16) Document 03/21/18 04:00 TXK5247 (Rec: 03/21/18 04:02 GCJ7335 ICU-C16) Document 03/21/18 05:00 JSJ6286 (Rec: 03/21/18 05:32 OMH8864 ICU-C16) Document 03/21/18 06:00 YYK0131 (Rec: 03/21/18 06:05 ODG8465 ICU-C16) Document 03/21/18 07:00 VBV1949 (Rec: 03/21/18 07:07 VFN8448 ICU-C16) Document 03/21/18 07:22 MLM0266 (Rec: 03/21/18 07:22 TWU2549 ICU-C16) Document 03/21/18 08:00 NCX2497 (Rec: 03/21/18 09:38 WWI4964 ICU-C16) Document 03/21/18 09:00 YYZ6314 (Rec: 03/21/18 09:38 QAM7438 ICU-C16) Document 03/21/18 09:55 YGA9743 (Rec: 03/21/18 09:55 VXI5511 ICU-C16) Document 03/21/18 10:00 QLX3030 (Rec: 03/21/18 12:49 MVK8904 ICU-C16) Document 03/21/18 11:00 VFH4045 (Rec: 03/21/18 12:49 QYC4028 ICU-C16) Document 03/21/18 12:00 PXB0123 (Rec: 03/21/18 12:49 IAJ0188 ICU-C16) Document 03/21/18 13:00 JHF4655 (Rec: 03/21/18 15:08 XBY4540 ICU-C16) Document 03/21/18 14:00 QUB4488 (Rec: 03/21/18 15:08 GQU9061 ICU-C16) Document 03/21/18 15:00 BJN7602 (Rec: 03/21/18 17:01 QXP4041 ICU-C16) Document 03/21/18 16:00 EVL9102 (Rec: 03/21/18 17:01 JNV5649 ICU-C16) Document 03/21/18 17:00 ATJ0963 (Rec: 03/21/18 18:20 TSB8321 ICU-C16) Document 03/21/18 18:00 VKZ4299 (Rec: 03/21/18 18:21 JLT9219 ICU-C16) Document 03/21/18 19:00 LCX7532 (Rec: 03/21/18 23:07 GDG0653 ICU-C16) Document 03/21/18 20:00 XAY8883 (Rec: 03/21/18 23:07 PFN7649 ICU-C16) Document 03/21/18 21:00 XWT8383 (Rec: 03/21/18 23:07 TIW4678 ICU-C16) Document 03/21/18 22:00 JDL6617 (Rec: 03/21/18 23:07 ZTK7059 ICU-C16) Document 03/21/18 23:00 STR4290 (Rec: 03/22/18 01:11 TAV3350 ISDEMO-M03 ) Document 03/22/18 00:00 VEA1524 (Rec: 03/22/18 01:14 BOK6356 ISDEMO-M03 ) Document 03/22/18 01:00 DJG7943 (Rec: 03/22/18 01:14 GEN0646 ISDEMO-M03 ) Document 03/22/18 02:00 SOJ1129 (Rec: 03/22/18 02:30 GUY8123 ICU-C16) Document 03/22/18 03:00 HAF8064 (Rec: 03/22/18 04:22 LVX5055 ICU-C16) Document 03/22/18 04:00 RKV5638 (Rec: 03/22/18 04:22 ICU-C16) Document 03/22/18 05:00 (Rec: 03/22/18 05:18 ICU-C16) Intake and Output Start: 03/18/18 15: 21 Freq: DAILY@0600,1400,2200 Status: Complete Protocol: Created 03/18/18 15:21 WJZ7083 (Rec: 03/18/18 15:21 FPZ9435 MED-C04) Intake and Output Start: 03/19/18 07: 52 Freq: 06,14,2200 Status: Complete Protocol: Created 03/19/18 07:53 GRT6315 (Rec: 03/19/18 07:53 [facility]-BG12) Document 03/19/18 14:00 JUNE5 (Rec: 03/19/18 15:43 JUNE5 MED-C11) Labs: Laboratory Results - last 24 hr 03/22/18 03/22/18 03/22/18 03:46 03:46 03:46 WBC 13.0 H RBC 3.25 L Hgb 10.3 L Hct 32 L MCV 97 MCH 32 H MCHC 33 RDW 19 H Plt Count 328 MPV 8.1 Neut % (Auto) 87.0 Lymph % (Auto) 6.4 Reeves % (Auto) 6.0 Eos % (Auto) 0.2 Baso % (Auto) 0.4 Absolute Neuts (auto) 11.3 H Absolute Lymphs (auto) 0.8 L Absolute Monos (auto) 0.8 Absolute Eos (auto) 0 Absolute Basos (auto) 0.1 Absolute Nucleated RBC 0 Nucleated RBC % 0.2 ABG pH 7.50 H ABG pCO2 35 ABG pO2 105 H ABG HCO3 28.2 ABG O2 Saturation 99.4 H ABG Base Excess 4.2 H Sodium 131 L Potassium 3.7 Chloride 99 L Carbon Dioxide 27 Anion Gap 5 BUN 16 Creatinine < 0.30 L Est GFR ( Amer) 286.1 Est GFR (Non-Af Amer) 236.5 BUN/Creatinine Ratio 53.0 H Glucose 109 H Lactic Acid Calcium 6.7 L Phosphorus Magnesium Total Bilirubin 0.40 AST 25 ALT 10 Alkaline Phosphatase 159 H Total Protein 3.5 L Albumin 1.3 L Globulin 2.2 Albumin/Globulin Ratio 0.6 L Triglycerides Cortisol 10.40 03/22/18 03/22/18 03/22/18 03:56 05:49 05:49 WBC 12.7 H RBC 3.30 L Hgb 10.6 L Hct 32 L MCV 98 H MCH 32 H MCHC 33 RDW 21 H Plt Count 314 MPV 7.8 Neut % (Auto) Lymph % (Auto) Reeves % (Auto) Eos % (Auto) Baso % (Auto) Absolute Neuts (auto) Absolute Lymphs (auto) Absolute Monos (auto) Absolute Eos (auto) Absolute Basos (auto) Absolute Nucleated RBC Nucleated RBC % ABG pH ABG pCO2 ABG pO2 ABG HCO3 ABG O2 Saturation ABG Base Excess Sodium Potassium Chloride Carbon Dioxide Anion Gap BUN Creatinine Est GFR ( Amer) Est GFR (Non-Af Amer) BUN/Creatinine Ratio Glucose Lactic Acid 1.5 Calcium Phosphorus 2.7 Magnesium 1.7 L Total Bilirubin AST ALT Alkaline Phosphatase Total Protein Albumin Globulin Albumin/Globulin Ratio Triglycerides 235 Cortisol 03/22/18 05:49 WBC RBC Hgb Hct MCV MCH MCHC RDW Plt Count MPV Neut % (Auto) Lymph % (Auto) Reeves % (Auto) Eos % (Auto) Baso % (Auto) Absolute Neuts (auto) Absolute Lymphs (auto) Absolute Monos (auto) Absolute Eos (auto) Absolute Basos (auto) Absolute Nucleated RBC Nucleated RBC % ABG pH ABG pCO2 ABG pO2 ABG HCO3 ABG O2 Saturation ABG Base Excess Sodium Potassium Chloride Carbon Dioxide Anion Gap BUN Creatinine Est GFR ( Amer) Est GFR (Non-Af Amer) BUN/Creatinine Ratio Glucose Lactic Acid 1.9 Calcium Phosphorus Magnesium Total Bilirubin AST ALT Alkaline Phosphatase Total Protein Albumin Globulin Albumin/Globulin Ratio Triglycerides Cortisol Studies: 03/22 CXR - patchy airspace disease of left lung base. hyperinflation. no pneumothorax. 03/21 CTA chest - no PE. moderate bilateral pleural effusions with adjaced atelectasis. patchy ground glass opacities throughout both lungs. Nondisplaced fractures of left posterior 9-10th ribs. ? midsternal fracture, mildly displaced 03/21 CXR - LLL consolidation with patchy airspace disease throughout. small bilateral pleural effusions. 03/21 CXR - CHF with interval progression 03/20 CXR - CHF with interval improvement 03/19 CXR - extensive bilateral infiltrates and small bilateral effusions, unchanged 03/19 CT abd/pelvis - large amount of free intraperitoneal air, moderate ascites 03/17 CXR - pulmonary intersitital and alveolar edema with small bilateral pleural effusions and bibasilar atelectasis vs consolidation 03/16 CTA chest - No PE. large bilateral pleural effusions with compressive atelectasis. interstitial edema c/w CHF. small 5mm nodule in RML wich is noncalcified and unchanged from 12/17/201703/10 CT abd/pelvis - bilateral pleural effusions, ascites, fatty infiltration of liver, atherosclerosis, right prox femur fracture. No discrete fractures of left 9th and 10th ribs, no lymphadenopathy or other fundings ot suggest metastatic disease 03/09 US liver - 10.1 cm complex cystic lesion deep to pancreas, additinoal 2 cm pancreatic hypodensity. Complex fluid or edema lateral to right kidney. 03/09 US BLE - No DVT 03/09 XR pelvis - displaced angulated intertrochanteric fx of right femur 03/09 CT brain - no acute pathology Nutrition: PPN, place PICC and switch to TPN Impression: 48yo F admitted 03/09 after a fall with right trochanteric femur fracture. Underwent ORIF 03/14/2018. Postop developed cecal perforation requiring return to OR and right hemicolectomy on 03/19/2018. No with acute hypoxic respiratory failure, volume overload, sepsis due to peritonitis and UTI and general failure to thrive. Plan: Cardiovascular: (1) Septic shock; (2) Sinus tachycardia -- HR 88-148 -- SBP 65-144 -- Telemetry -- Vasopressors Levophed @ 10 mcg/min, titrate to MAP > 65 -- Lasix 20 mg IV given this AM Home meds: None Pulmonary: (1) Acute hypoxic respiratory failure secondary to volume overload; (2) ARDS; (3) New pulmonary nodules noted on admission CXR -- RR 14-31 -- sats 89-100 -- vent: wean as able -- CXR: patchy airspace disease of LLL -- ABG: pH 7.50; pCO2 35; pO2 105; HCO3 28.2; BE 4.2; %O2 Sat 99.4. -- PRN Albuterol -- Outpatient followup with pt's oncologist regarding finding of pulmonary nodules on CXR Home meds: None Gastrointestinal: (1) Cecal perforation with peritonitis s/p exlap and right hemicolectomy with primary anastamosis, 03/19/2018;() Severe protein calorie malnutrition; () Liver cirrhosis with ascites, new diagnosis; () hx of colorectal cancer, 2007; () hx of pancreatitis -- LFTs Tbili 0.40 ALK 159 from 179, follow trend AST 25 ALT 10 -- diet: PPN. Place PICC and switch to TPN -- bowel regimen: None -- ulcer prophylaxis: Protonix -- PRN Zofran -- per d/w DR. Yaneth Mott, pt will require Creon once able to take PO Home meds: Loperamide, Pepcid Endocrine: No acute issues -- monitor BGs Home meds: None Renal: (1) Volume overload secondary to hypoalbuminemia; (2) Hyponatremia; (3) Hypocalcemia; (4) hypomagnesemia -- UOP: 50 ml/hr -- I/O:2972 ml in / 1960 ml out -- Cr <0.3 -- Lytes Na 131 from 131, follow trend K 3.7 Ca 6.7, replace Mag 1.5 on 03/21, replaced, recheck with AM Labs Phos 2.6 on 03/21 -- IVF: HL -- Lasix 20 mg IV given this AM Home meds: Calcium citrate/Vit D3 Infectious disease: (1) Sepsis; (2) Peritonitis with gram negative bacteria; (3 ) Ecoli and pseudomonas UTI; (4) Vulvar yeast infection -- Tmax 103.8 -- WBC 12.7 from 13.0 -- Micro 03/20 blood no growth to date 03/19 Ascites gram negative bacilli jannet albicans 03/16 Urine pseudomonas blood negative 03/13 blood negative 03/12 blood negative 03/11 blood negative urine pseudomonas e.coli 03/09 blood MSSA 02/10 vials -- ABX Cefepime Vancomycin add Diflucan for jannet in ascites fluid Home meds: None Neurologic: (1) Chronic peripheral neuropathy, idiopathic progressive; (2) EtOH abuse; (3) Chronic opiate use; (4) Frequent falls -- Propofol and precedex gtt for sedation -- Fentanyl and Lidoderm patches, PRN IV Dilaudid for pain control -- PRN Ativan for anxiety -- PRN Tylenol -- Pain service consult noted Home meds: Oxycontin 10mg po BID, percocet 5mg 1-2 pills po q4 hrs and ativan 1mg po BID, Folic acid, Thiamine Hematological: (1) Anemia; (2) hx of colorectal cancer, 2008 -- Hgb 10.6 from 10.3 -- Plt 314 from 328 -- DVT prophylaxis: SQ Heparin Home meds: None Metabolic: No acute issues -- Lactic acid 1.9 from 1.5 Home meds: None Other: (1) Failure to thrive; (2) right hip fracture s/p ORIF, 03/14/2018; (3) recent right distal radius fx 01/2018; (4) Coccyx and left posterior knee decubiti, noted on admission; (5) ? Left 9th and 10th rib fractures, posterior, nondisplaced; (6) Questionable midsternal minimally displaced fracture vs artefact Deep vein thrombosis prophylaxis: SQ Heparin Dietary: Protonix Condition: Critical Prognosis: Poor Code status: Full Disposition: continue ICU Care Ex- and children (daughter and son) updated at bedside regarding interval events and plan of care Cumulative time spent in the care of this patient (excluding any procedure time) : at least 80 minutes. Patient care included clinical interview (with patient and/or family), bedside exam of the patient, review of labs, x-rays, and other ancillary data, coordination of (respiratory, nursing care, review of patient's records, discussion regarding patients management with involved consultants, primary physician, pharmacists, and other healthcare personnel (dietary, case management , physical/occupational therapy etc.) Critical Care Time: 80 min
[2018-03-22] MEDS: fentaNYL Patch Check Q Shift 1 NOTE SCH ×2 (07:33→18:45)
[2018-03-22] MEDS ORDERED: Calcium Gluconate INJ* 2 GM in NS 0.9% 100 ML* 100 ML IV ONE (08:45)
[2018-03-22] MEDS: Dexmedetomidine* 400 MCG in NS 0.9% 100 ML* 96 ML IVPB SCH ×2 (08:45→21:28)
[2018-03-22] MEDS ORDERED: Furosemide IV* 10 MG/ML 2 ML VIAL (20 MG) IV ONE ×2 (09:00→17:00)
[2018-03-22] MEDS: Pantoprazole IV* 40 MG IV SCH (09:28)
[2018-03-22] MEDS: Propofol* 100 ML IV SCH ×2 (09:33→23:49)
--- NOTE | 2018-03-22 10:00 | PN ---
Progress Note - Progress Note Date of Service: 03/22/18 SOAP: Subjective: [Pt is intubated and sedated. [address] Family and nurse at the bed side. Pt was incontinent of stool this morning.] Objective: [ Vital Signs Temp 99.5 F 03/22/18 08:30 Pulse 94 03/22/18 08:30 Resp 16 03/22/18 07:34 BP 113/93 03/22/18 08:30 Pulse Ox 97 03/22/18 08:30 Intake & Output 03/21/18 03/22/18 03/22/18 18:59 06:59 18:59 Intake Total 1599 1373 0 Output Total 1385 575 330 Balance 214 798 -330 Weight 99 lb 13.91 oz Intake: IV Fluids 55 781 ABX - CEFEPIME 63 NS (0.9%) 55 718 IVPB 375 ABX - CEFEPIME 60 ABX - FLAGYL 105 KCL 150 magnesium 60 Medicated IV 592 CC - Dexmedetomidine/ 53 Precedex CC - Norepinephrine/ 415 Levophed CC - Propofol/Diprivan 103 CC - Vasopressin/ 21 Pitressin TPN/PPN 1169 Oral 0 Output: NG Tube Drainage Amount 150 J Tube 65 T Tube 40 EMELIA #1 350 EMELIA #2 170 [place] [phone] Vitals are stabilizing. Pt still has an elevated temperature of 99.5 F. BP is under control on vasopressin and norepinephrine. Skin:Evidence of multiple attempts for central line noted of the right subclavian vein and right jugular vein. Hematoma present on neck from accidental carotid puncture during prior central line placement. General: Pt is a 39 y/o female who is appears older than her states age and malnourished. Pt is intubated and sedated. Heart: S1, S2. RRR Lungs: Diminished breath sounds. Abdomen: Bowel sounds present. Abdomen non-tympanic. EMELIA drains in place and draining clear and thin serosanguinous fluid. Extremities: Pt has signs of global edema and anasarca. Central line in femoral vein is in place and patent. ] Assessment: [48 y/o female with history of alcoholism, chronic pancreatitis, malnutrition and anemia. POD# 3 of diagnostic laparoscopy, exploratory laparotomy, right hemicolectomy and abdominal washout for a perforated cecum. ] Plan: [-Continue drains -Continue hyperalimentation -Continue antibiotics -Continue DVT and PUD prophylaxis.]
[2018-03-22] MEDS: Fluconazole 100 MG IVPREMIX(*) 100 MG/50 ML BAG IVPB SCH (10:33)
[2018-03-22] MEDS: Chlorhexidine MOUTHWASH 0.12%* 15 ML UDC TOPICAL SCH ×4 (11:37→21:37)
[2018-03-22] MEDS: Lidocaine PATCH 5%* 1 PATCH TRANSDERM SCH (11:44)
--- NOTE | 2018-03-22 11:48 | PN ---
Progress Note - Progress Note Date of Service: 03/22/18 Note: Surgery Progress Note S: I saw and examined patient this morning at approximately 7:15 am and this note reflects that visit. Patient early this morning around 4am was reintubated , with CVL and a line placed by Dr. Frank. Per medical records and nursing report patient was doing fairly well yesterday in day, was conversing and complained of pain. During the evening she developed worsening tachypnea, tachycardia, became tachycardic to 140s and persistently febrile. Due to her evident respiratory failure she was reintubated. She is currently intubated and sedated, on levo and vaso. O: Vital Signs: Temp Pulse Resp BP Pulse Ox 98.8 F 86 32 106/82 94 03/22/18 11:01 03/22/18 11:01 03/22/18 11:00 03/22/18 11:00 03/22/18 11:01 Vital Signs - 24 hr 03/21/18 03/21/18 03/21/18 12:00 12:01 12:18 Temperature 99.1 F Pulse Rate 116 115 Respiratory 20 19 19 Rate Blood Pressure 124/82 (mmHg) O2 Sat by Pulse 93 93 Oximetry 03/21/18 03/21/18 03/21/18 13:00 13:01 14:00 Temperature Pulse Rate 117 117 123 Respiratory 21 18 23 Rate Blood Pressure 125/90 (mmHg) O2 Sat by Pulse 92 93 93 Oximetry 03/21/18 03/21/18 03/21/18 14:08 15:00 15:15 Temperature Pulse Rate 125 134 Respiratory 20 23 31 Rate Blood Pressure 138/93 (mmHg) O2 Sat by Pulse 90 92 Oximetry 03/21/18 03/21/18 03/21/18 15:53 16:00 16:01 Temperature 99.6 F Pulse Rate 133 135 Respiratory 20 26 27 Rate Blood Pressure 132/95 (mmHg) O2 Sat by Pulse 89 89 Oximetry 03/21/18 03/21/18 03/21/18 17:00 17:01 17:35 Temperature Pulse Rate 114 115 Respiratory 28 24 24 Rate Blood Pressure 129/91 (mmHg) O2 Sat by Pulse 91 91 Oximetry 03/21/18 03/21/18 03/21/18 18:00 18:01 19:00 Temperature Pulse Rate 121 121 133 Respiratory 24 23 25 Rate Blood Pressure 120/89 124/86 (mmHg) O2 Sat by Pulse 95 95 89 Oximetry 03/21/18 03/21/18 03/21/18 19:01 19:20 19:29 Temperature Pulse Rate 134 Respiratory 24 31 43 Rate Blood Pressure (mmHg) O2 Sat by Pulse 90 Oximetry 03/21/18 03/21/18 03/21/18 20:00 20:01 20:33 Temperature Pulse Rate 139 136 134 Respiratory 28 25 Rate Blood Pressure 111/84 113/89 (mmHg) O2 Sat by Pulse 91 91 90 Oximetry 03/21/18 03/21/18 03/21/18 21:00 21:01 21:15 Temperature Pulse Rate 145 145 145 Respiratory 24 Rate Blood Pressure 106/76 95/79 (mmHg) O2 Sat by Pulse 90 90 91 Oximetry 03/21/18 03/21/18 03/21/18 21:30 22:00 22:05 Temperature Pulse Rate 144 141 Respiratory 23 Rate Blood Pressure 89/74 (mmHg) O2 Sat by Pulse 91 99 Oximetry 03/21/18 03/21/18 03/21/18 22:12 22:15 22:30 Temperature Pulse Rate 140 141 140 Respiratory Rate Blood Pressure 110/89 105/83 101/83 (mmHg) O2 Sat by Pulse 99 99 98 Oximetry 03/21/18 03/21/18 03/21/18 22:45 23:00 23:01 Temperature Pulse Rate 141 141 141 Respiratory 25 Rate Blood Pressure 96/75 96/77 (mmHg) O2 Sat by Pulse 97 97 98 Oximetry 03/21/18 03/21/18 03/21/18 23:06 23:15 23:30 Temperature Pulse Rate 141 143 146 Respiratory Rate Blood Pressure 99/78 97/77 (mmHg) O2 Sat by Pulse 98 98 97 Oximetry 03/21/18 03/22/18 03/22/18 23:45 00:00 00:01 Temperature 103.8 F Pulse Rate 145 150 149 Respiratory 24 Rate Blood Pressure 86/66 89/63 (mmHg) O2 Sat by Pulse 98 94 94 Oximetry 03/22/18 03/22/18 03/22/18 00:05 00:10 00:15 Temperature Pulse Rate 149 148 145 Respiratory Rate Blood Pressure 105/85 83/62 82/60 (mmHg) O2 Sat by Pulse 92 93 94 Oximetry 03/22/18 03/22/18 03/22/18 00:20 00:25 00:31 Temperature Pulse Rate 141 141 139 Respiratory Rate Blood Pressure 72/59 81/61 71/49 (mmHg) O2 Sat by Pulse 93 94 91 Oximetry 03/22/18 03/22/18 03/22/18 00:35 00:40 00:46 Temperature Pulse Rate 140 143 131 Respiratory Rate Blood Pressure 70/48 76/53 68/51 (mmHg) O2 Sat by Pulse 90 89 91 Oximetry 03/22/18 03/22/18 03/22/18 00:51 00:55 01:00 Temperature Pulse Rate 146 148 142 Respiratory 18 Rate Blood Pressure 66/54 77/61 95/80 (mmHg) O2 Sat by Pulse 87 90 97 Oximetry 03/22/18 03/22/18 03/22/18 01:01 01:05 01:10 Temperature Pulse Rate 144 139 139 Respiratory Rate Blood Pressure 102/85 99/81 (mmHg) O2 Sat by Pulse 98 100 100 Oximetry 03/22/18 03/22/18 03/22/18 01:15 01:20 01:25 Temperature 102.6 F 102.6 F 102.6 F Pulse Rate 134 136 135 Respiratory Rate Blood Pressure 105/86 109/84 124/73 (mmHg) O2 Sat by Pulse 100 100 100 Oximetry 03/22/18 03/22/18 03/22/18 01:30 01:35 01:40 Temperature 102.7 F 102.7 F 102.9 F Pulse Rate 135 139 139 Respiratory Rate Blood Pressure 108/86 97/84 97/84 (mmHg) O2 Sat by Pulse 100 100 99 Oximetry 03/22/18 03/22/18 03/22/18 01:45 01:50 01:55 Temperature 102.9 F 102.9 F 102.9 F Pulse Rate 138 132 129 Respiratory Rate Blood Pressure 94/70 98/69 93/69 (mmHg) O2 Sat by Pulse 98 97 97 Oximetry 03/22/18 03/22/18 03/22/18 02:00 02:01 02:05 Temperature 102.9 F 102.9 F 102.9 F Pulse Rate 136 135 135 Respiratory 23 Rate Blood Pressure 92/67 90/66 (mmHg) O2 Sat by Pulse 95 95 94 Oximetry 03/22/18 03/22/18 03/22/18 02:10 02:15 02:20 Temperature 102.9 F 102.9 F 102.9 F Pulse Rate 134 137 136 Respiratory Rate Blood Pressure 82/65 89/67 88/69 (mmHg) O2 Sat by Pulse 94 94 94 Oximetry 03/22/18 03/22/18 03/22/18 02:25 02:30 02:35 Temperature 102.7 F 102.7 F 102.7 F Pulse Rate 133 132 130 Respiratory Rate Blood Pressure 87/73 90/67 86/67 (mmHg) O2 Sat by Pulse 94 94 94 Oximetry 03/22/18 03/22/18 03/22/18 02:40 02:45 02:50 Temperature 102.6 F 102.6 F 102.4 F Pulse Rate 135 135 134 Respiratory Rate Blood Pressure 85/67 92/67 91/71 (mmHg) O2 Sat by Pulse 94 94 94 Oximetry 03/22/18 03/22/18 03/22/18 02:55 03:00 03:01 Temperature 102.4 F 102.2 F 102.2 F Pulse Rate 128 134 135 Respiratory 21 Rate Blood Pressure 90/66 93/71 (mmHg) O2 Sat by Pulse 94 94 95 Oximetry 03/22/18 03/22/18 03/22/18 03:05 03:10 03:15 Temperature 102.2 F 102.2 F 102.2 F Pulse Rate 126 125 133 Respiratory Rate Blood Pressure 99/74 89/77 90/73 (mmHg) O2 Sat by Pulse 95 95 95 Oximetry 03/22/18 03/22/18 03/22/18 03:20 03:25 03:30 Temperature 102.0 F 102.0 F 101.8 F Pulse Rate 127 132 122 Respiratory Rate Blood Pressure 89/77 82/66 70/52 (mmHg) O2 Sat by Pulse 95 94 95 Oximetry 03/22/18 03/22/18 03/22/18 03:35 03:40 03:45 Temperature 101.8 F 101.7 F 101.7 F Pulse Rate 127 134 128 Respiratory Rate Blood Pressure 112/88 100/80 86/68 (mmHg) O2 Sat by Pulse 96 94 90 Oximetry 03/22/18 03/22/18 03/22/18 03:50 03:55 04:00 Temperature 101.5 F 101.5 F 101.7 F Pulse Rate 122 115 110 Respiratory 19 Rate Blood Pressure 102/85 121/95 122/98 (mmHg) O2 Sat by Pulse 92 98 97 Oximetry 03/22/18 03/22/18 03/22/18 04:01 04:05 04:10 Temperature 101.7 F 101.5 F 101.5 F Pulse Rate 114 110 108 Respiratory Rate Blood Pressure 125/97 122/94 (mmHg) O2 Sat by Pulse 96 97 95 Oximetry 03/22/18 03/22/18 03/22/18 04:15 04:20 04:25 Temperature 101.5 F 101.5 F 101.3 F Pulse Rate 107 106 106 Respiratory Rate Blood Pressure 115/97 122/96 123/98 (mmHg) O2 Sat by Pulse 95 95 95 Oximetry 03/22/18 03/22/18 03/22/18 04:30 04:35 04:40 Temperature 101.3 F 101.3 F 101.1 F Pulse Rate 116 115 113 Respiratory Rate Blood Pressure 111/90 108/86 113/91 (mmHg) O2 Sat by Pulse 95 94 94 Oximetry 03/22/18 03/22/18 03/22/18 04:45 04:55 05:00 Temperature 101.1 F 101.1 F 101.1 F Pulse Rate 116 120 123 Respiratory 22 Rate Blood Pressure 109/89 102/84 96/79 (mmHg) O2 Sat by Pulse 95 100 98 Oximetry 03/22/18 03/22/18 03/22/18 05:01 05:06 05:10 Temperature 101.1 F 101.1 F 100.9 F Pulse Rate 115 121 124 Respiratory Rate Blood Pressure 109/83 80/60 (mmHg) O2 Sat by Pulse 100 96 94 Oximetry 03/22/18 03/22/18 03/22/18 05:15 05:20 05:25 Temperature 100.9 F 100.9 F 100.9 F Pulse Rate 118 113 112 Respiratory Rate Blood Pressure 105/87 112/93 115/95 (mmHg) O2 Sat by Pulse 92 95 96 Oximetry 03/22/18 03/22/18 03/22/18 05:30 05:35 05:40 Temperature 100.9 F 100.9 F 100.8 F Pulse Rate 112 110 110 Respiratory Rate Blood Pressure 115/97 114/95 116/95 (mmHg) O2 Sat by Pulse 95 96 96 Oximetry 03/22/18 03/22/18 03/22/18 05:45 05:50 05:55 Temperature 100.8 F 100.8 F 100.8 F Pulse Rate 109 110 111 Respiratory Rate Blood Pressure 115/95 113/94 119/94 (mmHg) O2 Sat by Pulse 96 95 95 Oximetry 03/22/18 03/22/18 03/22/18 06:00 06:01 06:05 Temperature 100.8 F 100.8 F 100.8 F Pulse Rate 109 110 110 Respiratory 16 Rate Blood Pressure 121/96 117/97 (mmHg) O2 Sat by Pulse 95 95 95 Oximetry 03/22/18 03/22/18 03/22/18 06:10 06:30 07:00 Temperature 100.6 F 100.4 F 100.0 F Pulse Rate 109 97 88 Respiratory 17 Rate Blood Pressure 117/96 124/97 128/96 (mmHg) O2 Sat by Pulse 96 97 98 Oximetry 03/22/18 03/22/18 03/22/18 07:01 07:30 07:34 Temperature 100.0 F 100.0 F Pulse Rate 87 88 97 Respiratory 16 Rate Blood Pressure 123/101 (mmHg) O2 Sat by Pulse 98 97 98 Oximetry 03/22/18 03/22/18 03/22/18 08:00 08:01 08:30 Temperature 99.9 F 99.9 F 99.5 F Pulse Rate 101 100 94 Respiratory 20 Rate Blood Pressure 118/93 113/93 (mmHg) O2 Sat by Pulse 96 96 97 Oximetry 03/22/18 03/22/18 03/22/18 09:00 09:01 09:30 Temperature 99.1 F 99.1 F 99.1 F Pulse Rate 110 111 94 Respiratory 24 Rate Blood Pressure 95/79 82/63 (mmHg) O2 Sat by Pulse 99 96 94 Oximetry 03/22/18 03/22/18 03/22/18 10:00 10:01 10:30 Temperature 99.0 F 99.0 F 98.8 F Pulse Rate 84 95 90 Respiratory 27 Rate Blood Pressure 82/68 85/70 (mmHg) O2 Sat by Pulse 89 89 91 Oximetry 03/22/18 03/22/18 11:00 11:01 Temperature 98.8 F 98.8 F Pulse Rate 88 86 Respiratory 32 Rate Blood Pressure 106/82 (mmHg) O2 Sat by Pulse 94 94 Oximetry Laboratory Results - last 24 hr 03/22/18 03/22/18 03/22/18 03:46 03:46 03:46 WBC 13.0 H RBC 3.25 L Hgb 10.3 L Hct 32 L MCV 97 MCH 32 H MCHC 33 RDW 19 H Plt Count 328 MPV 8.1 Neut % (Auto) 87.0 Lymph % (Auto) 6.4 [place] % (Auto) 6.0 Eos % (Auto) 0.2 Baso % (Auto) 0.4 Absolute Neuts (auto) 11.3 H Absolute Lymphs (auto) 0.8 L Absolute Monos (auto) 0.8 Absolute Eos (auto) 0 Absolute Basos (auto) 0.1 Absolute Nucleated RBC 0 Nucleated RBC % 0.2 ABG pH 7.50 H ABG pCO2 35 ABG pO2 105 H ABG HCO3 28.2 ABG O2 Saturation 99.4 H ABG Base Excess 4.2 H Sodium 131 L Potassium 3.7 Chloride 99 L Carbon Dioxide 27 Anion Gap 5 BUN 16 Creatinine < 0.30 L Est GFR ( Amer) 286.1 Est GFR (Non-Af Amer) 236.5 BUN/Creatinine Ratio 53.0 H Glucose 109 H Lactic Acid Calcium 6.7 L Phosphorus Magnesium Total Bilirubin 0.40 AST 25 ALT 10 Alkaline Phosphatase 159 H Total Protein 3.5 L Albumin 1.3 L Globulin 2.2 Albumin/Globulin Ratio 0.6 L Triglycerides Cortisol 10.40 03/22/18 03/22/18 03/22/18 03:56 05:49 05:49 WBC 12.7 H RBC 3.30 L Hgb 10.6 L Hct 32 L MCV 98 H MCH 32 H MCHC 33 RDW 21 H Plt Count 314 MPV 7.8 Neut % (Auto) Lymph % (Auto) [place] % (Auto) Eos % (Auto) Baso % (Auto) Absolute Neuts (auto) Absolute Lymphs (auto) Absolute Monos (auto) Absolute Eos (auto) Absolute Basos (auto) Absolute Nucleated RBC Nucleated RBC % ABG pH ABG pCO2 ABG pO2 ABG HCO3 ABG O2 Saturation ABG Base Excess Sodium Potassium Chloride Carbon Dioxide Anion Gap BUN Creatinine Est GFR ( Amer) Est GFR (Non-Af Amer) BUN/Creatinine Ratio Glucose Lactic Acid 1.5 Calcium Phosphorus 2.7 Magnesium 1.7 L Total Bilirubin AST ALT Alkaline Phosphatase Total Protein Albumin Globulin Albumin/Globulin Ratio Triglycerides 235 Cortisol 03/22/18 05:49 WBC RBC Hgb Hct MCV MCH MCHC RDW Plt Count MPV Neut % (Auto) Lymph % (Auto) [place] % (Auto) Eos % (Auto) Baso % (Auto) Absolute Neuts (auto) Absolute Lymphs (auto) Absolute Monos (auto) Absolute Eos (auto) Absolute Basos (auto) Absolute Nucleated RBC Nucleated RBC % ABG pH ABG pCO2 ABG pO2 ABG HCO3 ABG O2 Saturation ABG Base Excess Sodium Potassium Chloride Carbon Dioxide Anion Gap BUN Creatinine Est GFR ( Amer) Est GFR (Non-Af Amer) BUN/Creatinine Ratio Glucose Lactic Acid 1.9 Calcium Phosphorus Magnesium Total Bilirubin AST ALT Alkaline Phosphatase Total Protein Albumin Globulin Albumin/Globulin Ratio Triglycerides Cortisol Intake & Output 03/21/18 03/22/18 03/22/18 22:59 06:59 14:59 Intake Total 1599 1373 0 Output Total 1015 340 580 Balance 584 1033 -580 Weight 111 lb 99 lb 13.91 oz Intake: IV Fluids 55 781 ABX - CEFEPIME 63 NS (0.9%) 55 718 IVPB 375 ABX - CEFEPIME 60 ABX - FLAGYL 105 KCL 150 magnesium 60 Medicated IV 592 CC - Dexmedetomidine/ 53 Precedex CC - Norepinephrine/ 415 Levophed CC - Propofol/Diprivan 103 CC - Vasopressin/ 21 Pitressin TPN/PPN 1169 Oral 0 Output: J Tube 65 T Tube 40 EMELIA #1 150 EMELIA #2 90 [place] [phone] Other: # Bowel Movements 2 Estimated Stool Amount Large Abx: cefepime, fluconazole, flagyl Cx: 03/19 peritoneal fluid +GNB, +GPB, +jannet albicans Physical exam: Neuro- sedated CV: RRR Resp: decreased lung sounds Abd- soft, incision c/d/i, geena in place, EMELIA X 2 with serosanguinous fluid A/P: 48 F with chronic alcoholism, failure to thrive, pancreatitis, hospitalization for bacteremia, UTI and right hip fracture who developed free air and underwent dx lap, exploratory laparotomy, RHC for cecal perforation on , currently POD 3. - Patient's condition is critical. I had discussed with patient's family and patient before surgery that with her medical conditions, poor nutrition, acute critical and infectious illnesses and overall deconditioning she was at extremely high risk for comorbidities from an exploratory laparotomy for perforated bowel. She has developed acute respiratory failure from ARDS after surgery, making risk of morbidity/mortality even higher. - Patient has evidence of bowel function, soft abdomen, serosanguinous drainage from JPs. Now that she is reintubated, could place NGT and start trickle tube feeds - Continue broad spectrum abx and follow up final cultures - Care per ICU team
[2018-03-22] MEDS ORDERED: Furosemide IV* 10 MG/ML 2 ML VIAL (20 MG) IV SLOW PU ONE (14:00)
[2018-03-22] MEDS ORDERED: Magnesium Oxide TAB* 400 MG PO ONE (15:32)
--- NOTE | 2018-03-22 16:25 | PN ---
Progress Note - Progress Note Date of Service: 03/22/18 SOAP: Subjective: []Pt seen at bedside. She is intubated and resp therapy is in to see her at the same time. Objective: [] R hip dressing changed, incision was CDI, there is minimal staining from serous drainage on the dressing, incisions without discharge and witohut erythema. Thigh is soft. Assessment: []s/p R hip gamma nailing 2/[address] Lopez. - Multiple Co-morbidities including rectal CA and bowel perforation Plan: - DVT prophylaxis- per hospitalist - Continue PT/ OT- TTWB RLW -Appreciate medical and ICU management -Drainage improving, will cont to monitor incision
[2018-03-22 17:00] LABS: Glucose 120 mg/dL (70-100)
[2018-03-22 17:53] LABS: Anion Gap 7 mmol/L (2-11); Blood Urea Nitrogen 14 mg/dL (6-24); CO2 Carbon Dioxide 27 mmol/L (22-32); Calcium 7.1 mg/dL (8.6-10.3); Chloride 97 mmol/L (101-111); EGFR African American 286.1 (>60); EGFR Non-African American 236.5 (>60); Magnesium 1.6 mg/dL (1.9-2.7); Phosphorus 2.8 mg/dL (2.5-5.0); Potassium 3.3 mmol/L (3.5-5.0); Sodium 131 mmol/L (135-145); Triglycerides 266 mg/dL
[2018-03-22] MEDS: TPN* 24 HR with Dextrose 50% Water* 500 ML, Amino Acid Infusion 10%* 850 ML, Sterile Wa... CENTR SCH ×12 (17:56)
[2018-03-22] MEDS ORDERED: Dextrose 50% Syringe 50 ML* 25 GM/50 ML SYRINGE IV PUSH PRN (21:02)
[2018-03-22] MEDS: Lidocaine Patch REMOVE* 1 NOTE MISC SCH (21:31)
[2018-03-22] MEDS ORDERED: Insulin LISPRO* 1 UNITS UNIT SUBCUT SCH (22:00)
[2018-03-22] MEDS: HYDROmorphone INJ1* 1 MG/ML SYRINGE IV SLOW PU PRN (23:48)
[2018-03-23] MEDS: Cefepime 2 GM in Dextrose(*) 2 GM/50 ML BAG IV SCH ×2 (00:18→13:02)
[2018-03-23] MEDS: Insulin LISPRO* 1 UNITS UNIT SUBCUT SCH ×7 (00:19→21:21)
[2018-03-23] MEDS: Chlorhexidine MOUTHWASH 0.12%* 15 ML UDC TOPICAL SCH ×6 (01:20→21:24)
[2018-03-23] MEDS: HYDROmorphone INJ1* 1 MG/ML SYRINGE IV SLOW PU PRN ×3 (01:48→14:42)
[2018-03-23] MEDS: metroNIDAZOLE IV 500 MG/100ML* 500 MG/100 ML BAG IVPB SCH ×3 (04:34→19:38)
[2018-03-23 05:59] LABS: Hematocrit 26 % (35-47); Hemoglobin 8.7 g/dl (12.0-16.0); Mean Corpuscular HGB Conc 34 g/dl (31-36); Mean Corpuscular Hemoglobin 33 pg (27-31); Mean Corpuscular Volume 97 fL (80-97); Mean Platelet Volume 8.1 fL (7.4-10.4); Platelet Count 188 10^3/ul (150-450); Red Blood Count 2.65 10^6/ul (4.00-5.40); Red Cell Distribution Width 20 % (10.5-15)
[2018-03-23 06:15] LABS: ALT 8 U/L (7-52); AST 20 U/L (13-39); Albumin 1.6 g/dL (3.2-5.2); Albumin/Globulin Ratio 0.8 (1-3); Alkaline Phosphatase 119 U/L (34-104); Anion Gap 3 mmol/L (2-11); Blood Urea Nitrogen 19 mg/dL (6-24); CO2 Carbon Dioxide 29 mmol/L (22-32); Calcium 7.2 mg/dL (8.6-10.3); Chloride 99 mmol/L (101-111); EGFR African American 286.1 (>60); EGFR Non-African American 236.5 (>60); Globulin 1.9 g/dL (2-4); Glucose 229 mg/dL (70-100); Magnesium 1.5 mg/dL (1.9-2.7); Phosphorus 1.7 mg/dL (2.5-5.0); Potassium 3.3 mmol/L (3.5-5.0); Sodium 131 mmol/L (135-145); Total Protein 3.5 g/dL (6.4-8.9); Triglycerides 202 mg/dL
[2018-03-23] MEDS: Heparin VIAL(*) 5000 UNITS/ML VIAL (FIVE THOUSAND) SUBCUT SCH ×3 (06:32→21:22)
[2018-03-23] MEDS: Vasopressin* 100 UNITS in D5W 250 ML BAG* 245 ML IVPB SCH ×3 (07:44→16:49)
[2018-03-23] MEDS: fentaNYL Patch Check Q Shift 1 NOTE SCH ×2 (07:46→18:54)
[2018-03-23] MEDS: LORazepam INJ* 2 MG/ML 1 ML VIAL IV PUSH PRN (07:53)
[2018-03-23] MEDS: Dexmedetomidine* 400 MCG in NS 0.9% 100 ML* 96 ML IVPB SCH ×2 (08:48→10:38)
[2018-03-23] MEDS ORDERED: Calcium Gluconate INJ* 1 GM in NS 0.9% 50 ML* 50 ML IVPB ONE (08:54)
[2018-03-23] MEDS ORDERED: Magnesium Sulfate 2 GM IV* 2 GM/50 ML BAG IVPB ONE (08:55)
[2018-03-23] MEDS: Clotrimazole 1% CREAM* 45 GM TOPICAL SCH ×2 (09:05→21:21)
[2018-03-23] MEDS: Miconazole TOPICAL CREAM 2%* 30 GM TOPICAL SCH ×2 (09:06→21:22)
[2018-03-23] MEDS: Pantoprazole IV* 40 MG IV SCH (09:07)
[2018-03-23] MEDS: Fluconazole 100 MG IVPREMIX(*) 100 MG/50 ML BAG IVPB SCH (09:10)
--- NOTE | 2018-03-23 09:13 | PN ---
Date of Service: 03/23/18 - 15 Critical Care Services: 48 yo F presented to [place] ED on 03/09/2018 after a fall two days prior. Since the fall she was unable to ambulate per family, also bilateral lower extremity edema and generalized weakness. On workup found to have a right intertrochanteric fracture. US BLE negative for DVT. CT brain negative for acute pathology. Admitted to the medical service. 03/10: Seen by orthopedics service, who recommended proceeding with ORIF when medically cleared. Found on workup to have new cirrhosis with decreased synthetic function and ammonia of 100, as well as failure to thrive. Options for goals of care, including palliative focused, discussed with family. 03/11: started on Rifaximin in addition to lactulose for elevated ammonia. ORIF postponed due to bacteremia; started on cefazolin. 03/13: repeat blood cultures negative. Cleared for surgery but high risk. 03/14: ORIF right femur fracture. 03/16: developed tachycardia. started on gentle fluid resuscitation. Found to have UTI with E.coli and Pseudomonas. Continued on Cefazolin 03/17: developed hypoxia, requiring 15L facemask. CTA done earlier showing bilateral pleural effusion. Given Lasix x 1. Transferred to ICU for vapotherm. 03/18: ID consulted. ABx changed to Zosyn for 7 day course. 03/19: Developed worsened abdominal pain. CT abdomen with free air. General surgery consulted and went to OR for exlap. Found to have cecal perforation; right hemicolectomy with primary anastamosis performed. Noted to have gross peritonitis with pus in gutters. Returned to ICU post procedure, on ventilator. 03/20: Successfully extubated. 03/21: passing gas. AFebrile. on PPN. ABx changed to Cefepime and Flagyl for combined abdominal and vaginal/vulvar coverage. Pain service consulted. 03/22: overnight pt developed increased hypoxia. intubated. requiring PEEP 10a nd FiO2 100% with sats only 88%. Tachycardic to 130s. CTA obtained; negative for PE but demonstrates bilateral patchy infiltrates suggestive of pneumonia vs ARDS. 03/23: weaned off vasopressors Vital Signs: Temp Pulse Resp BP SpO2 FiO2 99.9 F 78 20 96/72 94 45 03/23/18 08:01 03/23/18 08:01 03/23/18 08:00 03/23/18 08:00 03/23/18 08:01 03/23 05:13 Physical Exam: Gen: resting comfortably. intubated, sedated HEENT: ETT in place Lungs: coarse bilaterally Cardiac: RRR Abdomen: soft, NTND. incision clean. draining serous fluid. JPs with serosanguinous drainage. Extremities: warm, dry Neuro: sedated Fluid Balance (Past 24 Hours): I= O= Net Intake & Output 03/21/18 03/22/18 03/23/18 03/24/18 06:59 06:59 06:59 06:59 Intake Total 2679 2972 2586 Output Total 2960 2215 2815 260 Balance -281 757 -229 -260 Weight 111 lb 7.849 oz 99 lb 13.91 oz 104 lb 11.513 oz 103 lb 11.2 oz Intake: IV Fluids 1033 836 750 ABX - CEFEPIME 63 170 ABX - FLAGYL 247 LR 625 NS (0.9%) 408 773 333 IVPB 260 375 ABX - CEFEPIME 60 ABX - FLAGYL 160 105 KCL 150 Zosyn 100 magnesium 60 Medicated IV 142 592 884 CC - Dexmedetomidine/ 53 170 Precedex CC - Norepinephrine/ 415 356 Levophed CC - Propofol/Diprivan 142 103 226 CC - Vasopressin/ 21 132 Pitressin TPN/PPN 1244 1169 952 Oral 0 0 Output: NG Tube Drainage Amount 150 J Tube 145 T Tube 110 EMELIA #1 [id number] 485 65 40 EMELIA #2 375 290 210 70 [place] 2075 1290 2285 150 Other: # Bowel Movements 2 Estimated Stool Amount Large Labs: Laboratory Results - last 24 hr 03/22/18 03/22/18 03/22/18 11:51 16:28 20:19 WBC RBC Hgb Hct MCV MCH MCHC RDW Plt Count MPV Sodium 131 L Potassium 3.3 L Chloride 97 L Carbon Dioxide 27 Anion Gap 7 BUN 14 Creatinine < 0.30 L Est GFR ( Amer) 286.1 Est GFR (Non-Af Amer) 236.5 BUN/Creatinine Ratio 46.0 H Glucose 120 H POC Glucose (mg/dL) 310 H Lactic Acid 1.4 Calcium 7.1 L Ionized Calcium Phosphorus 2.8 Magnesium 1.6 L Total Bilirubin AST ALT Alkaline Phosphatase B-Natriuretic Peptide Total Protein Albumin Globulin Albumin/Globulin Ratio Triglycerides 266 03/22/18 03/22/18 03/22/18 20:58 21:56 23:50 WBC RBC Hgb Hct MCV MCH MCHC RDW Plt Count MPV Sodium Potassium Chloride Carbon Dioxide Anion Gap BUN Creatinine Est GFR ( Amer) Est GFR (Non-Af Amer) BUN/Creatinine Ratio Glucose POC Glucose (mg/dL) 381 H 373 H 341 H Lactic Acid Calcium Ionized Calcium Phosphorus Magnesium Total Bilirubin AST ALT Alkaline Phosphatase B-Natriuretic Peptide Total Protein Albumin Globulin Albumin/Globulin Ratio Triglycerides 03/23/18 03/23/18 03/23/18 05:39 05:39 05:39 WBC 7.0 RBC 2.65 L Hgb 8.7 L Hct 26 L MCV 97 MCH 33 H MCHC 34 RDW 20 H Plt Count 188 MPV 8.1 Sodium Potassium Chloride Carbon Dioxide Anion Gap BUN Creatinine Est GFR ( Amer) Est GFR (Non-Af Amer) BUN/Creatinine Ratio Glucose POC Glucose (mg/dL) Lactic Acid Calcium Ionized Calcium 1.13 L Phosphorus Magnesium Total Bilirubin AST ALT Alkaline Phosphatase B-Natriuretic Peptide > 1300 H Total Protein Albumin Globulin Albumin/Globulin Ratio Triglycerides 03/23/18 05:39 WBC RBC Hgb Hct MCV MCH MCHC RDW Plt Count MPV Sodium 131 L Potassium 3.3 L Chloride 99 L Carbon Dioxide 29 Anion Gap 3 BUN 19 Creatinine < 0.30 L Est GFR ( Amer) 286.1 Est GFR (Non-Af Amer) 236.5 BUN/Creatinine Ratio 63.0 H Glucose 229 H POC Glucose (mg/dL) Lactic Acid Calcium 7.2 L Ionized Calcium Phosphorus 1.7 L Magnesium 1.5 L Total Bilirubin 0.40 AST 20 ALT 8 Alkaline Phosphatase 119 H B-Natriuretic Peptide Total Protein 3.5 L Albumin 1.6 L Globulin 1.9 L Albumin/Globulin Ratio 0.8 L Triglycerides 202 Studies: 03/23 CXR - hyperinflation. bibasilar atelectasis vs consolidation. small left pleural effusion 03/22 CXR - patchy airspace disease of left lung base. hyperinflation. no pneumothorax. 03/21 CTA chest - no PE. moderate bilateral pleural effusions with adjaced atelectasis. patchy ground glass opacities throughout both lungs. Nondisplaced fractures of left posterior 9-10th ribs. ? midsternal fracture, mildly displaced 03/21 CXR - LLL consolidation with patchy airspace disease throughout. small bilateral pleural effusions. 03/21 CXR - CHF with interval progression 03/20 CXR - CHF with interval improvement 03/19 CXR - extensive bilateral infiltrates and small bilateral effusions, unchanged 03/19 CT abd/pelvis - large amount of free intraperitoneal air, moderate ascites 03/17 CXR - pulmonary intersitital and alveolar edema with small bilateral pleural effusions and bibasilar atelectasis vs consolidation 03/16 CTA chest - No PE. large bilateral pleural effusions with compressive atelectasis. interstitial edema c/w CHF. small 5mm nodule in RML wich is noncalcified and unchanged from 12/17/201703/10 CT abd/pelvis - bilateral pleural effusions, ascites, fatty infiltration of liver, atherosclerosis, right prox femur fracture. No discrete fractures of left 9th and 10th ribs, no lymphadenopathy or other fundings ot suggest metastatic disease 03/09 US liver - 10.1 cm complex cystic lesion deep to pancreas, additinoal 2 cm pancreatic hypodensity. Complex fluid or edema lateral to right kidney. 03/09 US BLE - No DVT 03/09 XR pelvis - displaced angulated intertrochanteric fx of right femur 03/09 CT brain - no acute pathology Nutrition: TPN Impression: 48yo F admitted 03/09 after a fall with right trochanteric femur fracture. Underwent ORIF 03/14/2018. Postop developed cecal perforation requiring return to OR and right hemicolectomy on 03/19/2018. No with acute hypoxic respiratory failure, volume overload, sepsis due to peritonitis and UTI and general failure to thrive. Plan: Cardiovascular: (1) Septic shock; (2) Sinus tachycardia -- HR 66-111 -- SBP 86-136 -- Telemetry -- BNP > 1300 -- Vasopressors Levophed and Vasopressin weaned off -- Lasix BID for diuresis -- Albumin ATC Home meds: None Pulmonary: (1) Acute hypoxic respiratory failure secondary to volume overload; (2) ARDS; (3) New pulmonary nodules noted on admission CXR -- RR 12-32 -- sats 89-100 -- vent: wean as able -- CXR: patchy airspace disease of LLL -- PRN Albuterol -- Outpatient followup with pt's oncologist regarding finding of pulmonary nodules on CXR Home meds: None Gastrointestinal: (1) Cecal perforation with peritonitis s/p exlap and right hemicolectomy with primary anastamosis, 03/19/2018;(2) Severe protein calorie malnutrition; (3) Liver cirrhosis with ascites, new diagnosis; (4) hx of colorectal cancer, 2007; (5) hx of pancreatitis -- LFTs Tbili 0.40 ALK 119 from 159 from 179, follow trend AST 20 ALT 8 -- diet: TPN. Place NG. start trickle TF. -- bowel regimen: None -- ulcer prophylaxis: Protonix -- PRN Zofran -- per d/w DR. Colón, pt will require Creon once able to take PO Home meds: Loperamide, Pepcid Endocrine: No acute issues -- monitor BGs -- SSI Home meds: None Renal: (1) Volume overload secondary to hypoalbuminemia; (2) Hyponatremia; (3) Hypocalcemia; (4) hypomagnesemia -- UOP: 95 ml/hr -- I/O:2586 ml in / 2815 ml out -- Cr <0.3 -- Lytes Na 131 from 131, follow trend K 3.3, replaced Ca 7.2, ionized 1.13, replaced Mag 1.5, replaced Phos 1.7, replaced -- IVF: HL -- Lasix BID for diuresis Home meds: Calcium citrate/Vit D3 Infectious disease: (1) Sepsis, improving; (2) Peritonitis with gram negative bacteria; (3) Ecoli and pseudomonas UTI; (4) Vulvar yeast infection -- Tmax 100.8 -- WBC 7.0 from 12.7 -- Micro 03/20 blood no growth to date 03/19 Ascites gram negative bacilli jannet albicans 03/16 Urine pseudomonas blood negative 03/13 blood negative 03/12 blood negative 03/11 blood negative urine pseudomonas e.coli 03/09 blood MSSA 02/10 vials -- ABX Cefepime Flagyl Vancomycin Diflucan for jannet in ascites fluid Home meds: None Neurologic: (1) Chronic peripheral neuropathy, idiopathic progressive; (2) EtOH abuse; (3) Chronic opiate use; (4) Frequent falls -- Propofol and precedex gtt for sedation -- Fentanyl and Lidoderm patches, PRN IV Dilaudid for pain control -- PRN Ativan for anxiety -- PRN Tylenol -- Pain service consult noted Home meds: Oxycontin 10mg po BID, percocet 5mg 1-2 pills po q4 hrs and ativan 1mg po BID, Folic acid, Thiamine Hematological: (1) Anemia; (2) hx of colorectal cancer, 2008 -- Hgb 8.7 from 10.6, dilutional -- Plt 188 from 314 -- DVT prophylaxis: SQ Heparin Home meds: None Metabolic: No acute issues -- Lactic acid 1.9 from 1.5 Home meds: None Other: (1) Failure to thrive; (2) right hip fracture s/p ORIF, 03/14/2018; (3) recent right distal radius fx 01/2018; (4) Coccyx and left posterior knee decubiti, noted on admission; (5) ? Left 9th and 10th rib fractures, posterior, nondisplaced; (6) Questionable midsternal minimally displaced fracture vs artefact Deep vein thrombosis prophylaxis: SQ Heparin Dietary: Protonix Condition: Critical Prognosis: Poor Code status: Full Disposition: continue ICU Care Cumulative time spent in the care of this patient (excluding any procedure time) : at least 50 minutes. Patient care included clinical interview (with patient and/or family), bedside exam of the patient, review of labs, x-rays, and other ancillary data, coordination of (respiratory, nursing care, review of patient's records, discussion regarding patients management with involved consultants, primary physician, pharmacists, and other healthcare personnel (dietary, case management , physical/occupational therapy etc.) Critical Care Time: 50 min
[2018-03-23] MEDS: Albumin Human 25%* 25 GM/100 ML BTL IV SCH ×3 (09:26→21:24)
[2018-03-23] MEDS: Furosemide IV* 10 MG/ML VIAL (40 MG) IV SLOW PU SCH ×2 (09:31→16:49)
[2018-03-23] MEDS: Lidocaine PATCH 5%* 1 PATCH TRANSDERM SCH (09:45)
--- NOTE | 2018-03-23 09:51 | PN ---
Progress Note - Progress Note Date of Service: 03/23/18 Note: Surgery Progress Note S: Patient overnight was relatively stable. Still having low grade fevers. Vasopressors almost weaned to off, only on low dose vasopressin right now. OGT could not be placed yesterday. I spoke to the son who was at the bedside in detail about her medical condition and answered all questions. O: Vital Signs: Temp Pulse Resp BP Pulse Ox 99.0 F 73 20 86/65 94 03/23/18 09:01 03/23/18 09:01 03/23/18 09:00 03/23/18 09:00 03/23/18 09:01 Vital Signs - 24 hr 03/22/18 03/22/18 03/22/18 10:00 10:01 10:30 Temperature 99.0 F 99.0 F 98.8 F Pulse Rate 84 95 90 Respiratory 27 Rate Blood Pressure 82/68 85/70 (mmHg) O2 Sat by Pulse 89 89 91 Oximetry 03/22/18 03/22/18 03/22/18 11:00 11:01 11:30 Temperature 98.8 F 98.8 F 99.1 F Pulse Rate 88 86 90 Respiratory 32 Rate Blood Pressure 106/82 114/91 (mmHg) O2 Sat by Pulse 94 94 97 Oximetry 03/22/18 03/22/18 03/22/18 12:00 12:01 12:30 Temperature 99.0 F 99.0 F 98.8 F Pulse Rate 100 98 89 Respiratory 19 Rate Blood Pressure 109/85 76/63 (mmHg) O2 Sat by Pulse 99 98 94 Oximetry 03/22/18 03/22/18 03/22/18 13:00 13:01 13:30 Temperature 98.6 F 98.6 F 98.4 F Pulse Rate 83 82 80 Respiratory 13 Rate Blood Pressure 91/74 89/70 (mmHg) O2 Sat by Pulse 96 96 96 Oximetry 03/22/18 03/22/18 03/22/18 14:00 14:01 14:30 Temperature 98.2 F 98.4 F 98.2 F Pulse Rate 80 80 72 Respiratory 16 Rate Blood Pressure 79/64 99/72 (mmHg) O2 Sat by Pulse 95 94 94 Oximetry 03/22/18 03/22/18 03/22/18 15:00 15:01 15:30 Temperature 98.1 F 97.9 F 97.9 F Pulse Rate 70 66 67 Respiratory 15 Rate Blood Pressure 99/73 101/76 (mmHg) O2 Sat by Pulse 94 94 96 Oximetry 03/22/18 03/22/18 03/22/18 16:00 16:01 16:02 Temperature 98.1 F 98.1 F 98.1 F Pulse Rate 81 87 83 Respiratory 22 Rate Blood Pressure 75/62 71/54 (mmHg) O2 Sat by Pulse 96 95 99 Oximetry 03/22/18 03/22/18 03/22/18 16:30 17:00 17:01 Temperature 98.1 F 98.2 F 98.2 F Pulse Rate 85 79 80 Respiratory 25 Rate Blood Pressure 93/72 99/77 (mmHg) O2 Sat by Pulse 93 95 95 Oximetry 03/22/18 03/22/18 03/22/18 17:30 18:00 18:01 Temperature 98.4 F 98.6 F 98.6 F Pulse Rate 86 88 86 Respiratory 19 Rate Blood Pressure 89/75 101/80 (mmHg) O2 Sat by Pulse 95 95 95 Oximetry 03/22/18 03/22/18 03/22/18 18:30 19:00 19:01 Temperature 98.8 F 98.8 F 98.8 F Pulse Rate 84 83 82 Respiratory 15 Rate Blood Pressure 114/90 120/89 (mmHg) O2 Sat by Pulse 96 97 97 Oximetry 03/22/18 03/22/18 03/22/18 19:30 19:34 20:00 Temperature 99.0 F 99.0 F Pulse Rate 80 79 Respiratory 15 Rate Blood Pressure 125/91 123/92 (mmHg) O2 Sat by Pulse 97 97 Oximetry 03/22/18 03/22/18 03/22/18 20:01 20:30 21:00 Temperature 99.0 F 99.0 F 99.1 F Pulse Rate 78 81 82 Respiratory 14 Rate Blood Pressure 124/94 125/93 (mmHg) O2 Sat by Pulse 97 97 97 Oximetry 03/22/18 03/22/18 03/22/18 21:01 21:30 22:00 Temperature 99.1 F 99.3 F 99.7 F Pulse Rate 82 90 85 Respiratory 15 Rate Blood Pressure 120/93 121/93 (mmHg) O2 Sat by Pulse 97 98 97 Oximetry 03/22/18 03/22/18 03/22/18 22:01 22:30 23:00 Temperature 99.7 F 99.3 F 99.7 F Pulse Rate 85 81 83 Respiratory 22 Rate Blood Pressure 116/86 117/90 (mmHg) O2 Sat by Pulse 97 96 97 Oximetry 03/22/18 03/22/18 03/22/18 23:01 23:30 23:37 Temperature 99.7 F 99.9 F 99.9 F Pulse Rate 84 88 90 Respiratory Rate Blood Pressure 118/91 (mmHg) O2 Sat by Pulse 97 100 99 Oximetry 03/22/18 03/22/18 03/23/18 23:48 23:49 00:00 Temperature 99.9 F 99.9 F Pulse Rate 88 87 Respiratory 27 21 Rate Blood Pressure 118/91 108/84 (mmHg) O2 Sat by Pulse 98 97 Oximetry 03/23/18 03/23/18 03/23/18 00:01 00:30 01:00 Temperature 99.9 F 99.9 F 100.0 F Pulse Rate 87 85 88 Respiratory 18 Rate Blood Pressure 108/84 91/71 (mmHg) O2 Sat by Pulse 97 99 96 Oximetry 03/23/18 03/23/18 03/23/18 01:01 01:30 01:48 Temperature 100.0 F 100.4 F Pulse Rate 88 89 Respiratory 14 Rate Blood Pressure 98/74 (mmHg) O2 Sat by Pulse 96 100 Oximetry 03/23/18 03/23/18 03/23/18 02:00 02:01 02:30 Temperature 100.4 F 100.4 F 100.6 F Pulse Rate 85 87 84 Respiratory 25 Rate Blood Pressure 93/71 96/72 (mmHg) O2 Sat by Pulse 98 97 97 Oximetry 03/23/18 03/23/18 03/23/18 03:00 03:01 03:30 Temperature 100.4 F 100.4 F 100.6 F Pulse Rate 85 91 89 Respiratory 22 Rate Blood Pressure 91/69 100/74 (mmHg) O2 Sat by Pulse 99 98 99 Oximetry 03/23/18 03/23/18 03/23/18 04:00 04:01 04:30 Temperature 100.8 F 100.8 F 100.8 F Pulse Rate 83 84 83 Respiratory 21 Rate Blood Pressure 97/72 93/70 (mmHg) O2 Sat by Pulse 98 98 94 Oximetry 03/23/18 03/23/18 03/23/18 05:00 05:01 05:30 Temperature 100.8 F 100.6 F 100.8 F Pulse Rate 82 82 82 Respiratory 16 Rate Blood Pressure 93/70 92/71 (mmHg) O2 Sat by Pulse 94 94 94 Oximetry 03/23/18 03/23/18 03/23/18 06:00 06:01 06:21 Temperature 100.8 F 100.8 F Pulse Rate 86 87 Respiratory 18 16 Rate Blood Pressure 96/71 (mmHg) O2 Sat by Pulse 98 97 Oximetry 03/23/18 03/23/18 03/23/18 06:30 07:00 07:01 Temperature 100.8 F 100.4 F 100.4 F Pulse Rate 83 80 80 Respiratory 20 Rate Blood Pressure 89/68 92/68 (mmHg) O2 Sat by Pulse 93 93 94 Oximetry 03/23/18 03/23/18 03/23/18 07:30 07:53 08:00 Temperature 100.0 F 99.9 F Pulse Rate 79 80 Respiratory 17 20 Rate Blood Pressure 89/67 96/72 (mmHg) O2 Sat by Pulse 92 94 Oximetry 03/23/18 03/23/18 03/23/18 08:01 08:30 09:00 Temperature 99.9 F 99.1 F 99.0 F Pulse Rate 78 74 73 Respiratory 20 Rate Blood Pressure 87/65 86/65 (mmHg) O2 Sat by Pulse 94 91 93 Oximetry 03/23/18 09:01 Temperature 99.0 F Pulse Rate 73 Respiratory Rate Blood Pressure (mmHg) O2 Sat by Pulse 94 Oximetry Laboratory Results - last 24 hr 03/22/18 03/22/18 03/22/18 11:51 16:28 20:19 WBC RBC Hgb Hct MCV MCH MCHC RDW Plt Count MPV Sodium 131 L Potassium 3.3 L Chloride 97 L Carbon Dioxide 27 Anion Gap 7 BUN 14 Creatinine < 0.30 L Est GFR ( Amer) 286.1 Est GFR (Non-Af Amer) 236.5 BUN/Creatinine Ratio 46.0 H Glucose 120 H POC Glucose (mg/dL) 310 H Lactic Acid 1.4 Calcium 7.1 L Ionized Calcium Phosphorus 2.8 Magnesium 1.6 L Total Bilirubin AST ALT Alkaline Phosphatase B-Natriuretic Peptide Total Protein Albumin Globulin Albumin/Globulin Ratio Triglycerides 266 03/22/18 03/22/18 03/22/18 20:58 21:56 23:50 WBC RBC Hgb Hct MCV MCH MCHC RDW Plt Count MPV Sodium Potassium Chloride Carbon Dioxide Anion Gap BUN Creatinine Est GFR ( Amer) Est GFR (Non-Af Amer) BUN/Creatinine Ratio Glucose POC Glucose (mg/dL) 381 H 373 H 341 H Lactic Acid Calcium Ionized Calcium Phosphorus Magnesium Total Bilirubin AST ALT Alkaline Phosphatase B-Natriuretic Peptide Total Protein Albumin Globulin Albumin/Globulin Ratio Triglycerides 03/23/18 03/23/18 03/23/18 05:39 05:39 05:39 WBC 7.0 RBC 2.65 L Hgb 8.7 L Hct 26 L MCV 97 MCH 33 H MCHC 34 RDW 20 H Plt Count 188 MPV 8.1 Sodium Potassium Chloride Carbon Dioxide Anion Gap BUN Creatinine Est GFR ( Amer) Est GFR (Non-Af Amer) BUN/Creatinine Ratio Glucose POC Glucose (mg/dL) Lactic Acid Calcium Ionized Calcium 1.13 L Phosphorus Magnesium Total Bilirubin AST ALT Alkaline Phosphatase B-Natriuretic Peptide > 1300 H Total Protein Albumin Globulin Albumin/Globulin Ratio Triglycerides 03/23/18 05:39 WBC RBC Hgb Hct MCV MCH MCHC RDW Plt Count MPV Sodium 131 L Potassium 3.3 L Chloride 99 L Carbon Dioxide 29 Anion Gap 3 BUN 19 Creatinine < 0.30 L Est GFR ( Amer) 286.1 Est GFR (Non-Af Amer) 236.5 BUN/Creatinine Ratio 63.0 H Glucose 229 H POC Glucose (mg/dL) Lactic Acid Calcium 7.2 L Ionized Calcium Phosphorus 1.7 L Magnesium 1.5 L Total Bilirubin 0.40 AST 20 ALT 8 Alkaline Phosphatase 119 H B-Natriuretic Peptide Total Protein 3.5 L Albumin 1.6 L Globulin 1.9 L Albumin/Globulin Ratio 0.8 L Triglycerides 202 Intake & Output 03/22/18 03/23/18 03/23/18 22:59 06:59 14:59 Intake Total 1020 993 Output Total 1080 505 280 Balance -60 488 -280 Weight 104 lb 11.513 oz 103 lb 11.2 oz Intake: IV Fluids 293 204 ABX - CEFEPIME 70 ABX - FLAGYL 147 NS (0.9%) 146 134 Medicated IV 362 202 CC - Dexmedetomidine/ 63 57 Precedex CC - Norepinephrine/ 165 31 Levophed CC - Propofol/Diprivan 87 69 CC - Vasopressin/ 47 45 Pitressin TPN/PPN 365 587 Oral 0 0 Output: J Tube 20 T Tube 40 EMELIA #1 65 40 EMELIA #2 120 90 70 [place] [phone] Physical exam: Gen- intubated, sedated CV- RRR Resp- clear bilaterally Abd- soft, incision c/d/i, geena in places, drains with serous fluid A/P: 48 yo F with multiple medical problems, POD 4 from dx lap, ex lap, RHC for cecal perforation during hospitalization for bacteremia and right hip fracture. - Plan to place DHT and start trickle feeds today as patient has evidence of bowel function - Continue broad spectrum abx - Appreciate care per ICU team, continuing diuresis in the hope of extuabating in the next several days
[2018-03-23] MEDS: KCL 20 MEQ/100 ML IVPREMIX* 20 MEQ/100 ML BAG IV SCH ×3 (10:37→14:44)
[2018-03-23] MEDS ORDERED: Sodium Phosphate INJ* 30 MMOLE in NS 0.9% 250 ML* 250 ML IVPB ONE (11:00)
[2018-03-23] MEDS: TPN* 24 HR with Dextrose 50% Water* 500 ML, Amino Acid Infusion 10%* 850 ML, Sterile Wa... CENTR SCH ×12 (17:02)
[2018-03-23] MEDS: Propofol* 100 ML IV SCH (18:53)
[2018-03-23] MEDS ORDERED: Furosemide IV* 10 MG/ML 2 ML VIAL (20 MG) IV ONE (19:24)
[2018-03-23] MEDS: Lidocaine Patch REMOVE* 1 NOTE MISC SCH (21:22)
[2018-03-24] MEDS: Cefepime 2 GM in Dextrose(*) 2 GM/50 ML BAG IV SCH ×2 (01:40→12:16)
[2018-03-24] MEDS: Chlorhexidine MOUTHWASH 0.12%* 15 ML UDC TOPICAL SCH ×6 (01:40→21:51)
[2018-03-24] MEDS: Insulin LISPRO* 1 UNITS UNIT SUBCUT SCH ×6 (02:34→21:41)
[2018-03-24] MEDS: HYDROmorphone INJ1* 1 MG/ML SYRINGE IV SLOW PU PRN ×4 (03:06→23:42)
[2018-03-24] MEDS: metroNIDAZOLE IV 500 MG/100ML* 500 MG/100 ML BAG IVPB SCH ×3 (03:54→19:34)
[2018-03-24] MEDS: Albumin Human 25%* 25 GM/100 ML BTL IV SCH ×5 (03:54→23:47)
[2018-03-24 05:24] LABS: Hematocrit 24 % (35-47); Hemoglobin 8.1 g/dl (12.0-16.0); Mean Corpuscular HGB Conc 34 g/dl (31-36); Mean Corpuscular Hemoglobin 33 pg (27-31); Mean Corpuscular Volume 98 fL (80-97); Mean Platelet Volume 8.9 fL (7.4-10.4); Platelet Count 151 10^3/ul (150-450); Red Blood Count 2.44 10^6/ul (4.00-5.40); Red Cell Distribution Width 21 % (10.5-15); White Blood Count 6.4 10^3/ul (3.5-10.8)
[2018-03-24 05:42] LABS: ALT 6 U/L (7-52); AST 15 U/L (13-39); Albumin 2.4 g/dL (3.2-5.2); Albumin/Globulin Ratio 1.6 (1-3); Alkaline Phosphatase 78 U/L (34-104); Anion Gap 2 mmol/L (2-11); Blood Urea Nitrogen 19 mg/dL (6-24); CO2 Carbon Dioxide 29 mmol/L (22-32); Calcium 7.4 mg/dL (8.6-10.3); Chloride 100 mmol/L (101-111); EGFR African American 286.1 (>60); EGFR Non-African American 236.5 (>60); Globulin 1.5 g/dL (2-4); Glucose 172 mg/dL (70-100); Magnesium 1.6 mg/dL (1.9-2.7); Phosphorus 2.3 mg/dL (2.5-5.0); Potassium 3.4 mmol/L (3.5-5.0); Sodium 131 mmol/L (135-145); Total Protein 3.9 g/dL (6.4-8.9); Triglycerides 214 mg/dL
[2018-03-24] MEDS: Heparin VIAL(*) 5000 UNITS/ML VIAL (FIVE THOUSAND) SUBCUT SCH ×3 (05:54→21:52)
[2018-03-24] MEDS: fentaNYL Patch Check Q Shift 1 NOTE SCH ×2 (07:19→19:17)
[2018-03-24] MEDS ORDERED: Albuterol 2.5 MG/3 ML NEB.SOL* (0.083%) INH PRN ×2 (07:58→08:08)
[2018-03-24] MEDS ORDERED: Albuterol 2.5 MG/3 ML NEB.SOL* (0.083%) INH ONE (08:00)
--- NOTE | 2018-03-24 08:03 | PN ---
Date of Service: 03/24/18 - 16 Critical Care Services: 48 yo F presented to [facility] on 03/09/2018 after a fall two days prior. Since the fall she was unable to ambulate per family, also bilateral lower extremity edema and generalized weakness. On workup found to have a right intertrochanteric fracture. US BLE negative for DVT. CT brain negative for acute pathology. Admitted to the medical service. 03/10: Seen by orthopedics service, who recommended proceeding with ORIF when medically cleared. Found on workup to have new cirrhosis with decreased synthetic function and ammonia of 100, as well as failure to thrive. Options for goals of care, including palliative focused, discussed with family. 03/11: started on Rifaximin in addition to lactulose for elevated ammonia. ORIF postponed due to bacteremia; started on cefazolin. 03/13: repeat blood cultures negative. Cleared for surgery but high risk. 03/14: ORIF right femur fracture. 03/16: developed tachycardia. started on gentle fluid resuscitation. Found to have UTI with E.coli and Pseudomonas. Continued on Cefazolin 03/17: developed hypoxia, requiring 15L facemask. CTA done earlier showing bilateral pleural effusion. Given Lasix x 1. Transferred to ICU for vapotherm. 03/18: ID consulted. ABx changed to Zosyn for 7 day course. 03/19: Developed worsened abdominal pain. CT abdomen with free air. General surgery consulted and went to OR for exlap. Found to have cecal perforation; right hemicolectomy with primary anastamosis performed. Noted to have gross peritonitis with pus in gutters. Returned to ICU post procedure, on ventilator. 03/20: Successfully extubated. 03/21: passing gas. AFebrile. on PPN. ABx changed to Cefepime and Flagyl for combined abdominal and vaginal/vulvar coverage. Pain service consulted. 03/22: overnight pt developed increased hypoxia. intubated. requiring PEEP 10a nd FiO2 100% with sats only 88%. Tachycardic to 130s. CTA obtained; negative for PE but demonstrates bilateral patchy infiltrates suggestive of pneumonia vs ARDS. 03/23: weaned off Levophed. NG placed. Scheduled diuresis started. 03/24: TF started. Vital Signs: Temp Pulse Resp BP SpO2 FiO2 97.0 F 65 12 97/68 95 45 03/24/18 07:01 03/24/18 07:01 03/24/18 07:00 03/24/18 07:00 03/24/18 07:01 03/24 03:25 Physical Exam: Gen: resting comfortably HEENT: ETT and NG in place Lungs: bilateral expiratory wheezes Cardiac: RRR Abdomen: soft, NTND Extremities: warm, dry, minimal edema Neuro: awakens to voice Fluid Balance (Past 24 Hours): I= O= Net Intake & Output 03/22/18 03/23/18 03/24/18 03/25/18 06:59 06:59 06:59 06:59 Intake Total 2972 2586 4050.5 Output Total 2215 2815 4710 333 Balance 757 -229 -659.5 -333 Weight 99 lb 13.91 oz 104 lb 11.513 oz 104 lb 105 lb 2.568 oz Intake: IV Fluids 426 671 2704 ABX - CEFEPIME 63 170 67 ABX - FLAGYL 247 KCL 117 NS (0.9%) 773 333 546 albumin 600 IVPB 375 402 ABX - CEFEPIME 60 55 ABX - FLAGYL 105 100 KCL 150 calcium gluconate 60 fluconazole 50 magnesium 60 50 sodium phosphate 87 Medicated IV 592 884 431.5 CC - Dexmedetomidine/ 53 170 63 Precedex CC - Norepinephrine/ 415 356 Levophed CC - Propofol/Diprivan 103 226 255 CC - Vasopressin/ 21 132 113.5 Pitressin TPN/PPN 5967 051 6107 Oral 0 Output: NG Tube Drainage Amount 150 J Tube 145 20 T Tube 110 40 EMELIA #1 [id number] 65 60 EMELIA #2 [id number] 7302 300 [place] 1290 2285 3140 33 Other: # Bowel Movements 2 Estimated Stool Amount Large Labs: Laboratory Results - last 24 hr 03/22/18 03/23/18 03/23/18 06:10 09:44 12:53 WBC RBC Hgb Hct MCV MCH MCHC RDW Plt Count MPV Sodium Potassium Chloride Carbon Dioxide Anion Gap BUN Creatinine Est GFR ( Amer) Est GFR (Non-Af Amer) BUN/Creatinine Ratio Glucose POC Glucose (mg/dL) 317 H 311 H Calcium Ionized Calcium Phosphorus Magnesium Total Bilirubin AST ALT Alkaline Phosphatase B-Natriuretic Peptide Total Protein Albumin Globulin Albumin/Globulin Ratio Triglycerides Procalcitonin 0.67 H 03/23/18 03/23/18 03/24/18 17:04 21:02 02:21 WBC RBC Hgb Hct MCV MCH MCHC RDW Plt Count MPV Sodium Potassium Chloride Carbon Dioxide Anion Gap BUN Creatinine Est GFR ( Amer) Est GFR (Non-Af Amer) BUN/Creatinine Ratio Glucose POC Glucose (mg/dL) 341 H 215 H 272 H Calcium Ionized Calcium Phosphorus Magnesium Total Bilirubin AST ALT Alkaline Phosphatase B-Natriuretic Peptide Total Protein Albumin Globulin Albumin/Globulin Ratio Triglycerides Procalcitonin 03/24/18 03/24/18 03/24/18 05:02 05:02 05:02 WBC 6.4 RBC 2.44 L Hgb 8.1 L Hct 24 L MCV 98 H MCH 33 H MCHC 34 RDW 21 H Plt Count 151 MPV 8.9 Sodium Potassium Chloride Carbon Dioxide Anion Gap BUN Creatinine Est GFR ( Amer) Est GFR (Non-Af Amer) BUN/Creatinine Ratio Glucose POC Glucose (mg/dL) Calcium Ionized Calcium 1.08 L Phosphorus Magnesium Total Bilirubin AST ALT Alkaline Phosphatase B-Natriuretic Peptide > 1300 H Total Protein Albumin Globulin Albumin/Globulin Ratio Triglycerides Procalcitonin 03/24/18 03/24/18 05:02 05:06 WBC RBC Hgb Hct MCV MCH MCHC RDW Plt Count MPV Sodium 131 L Potassium 3.4 L Chloride 100 L Carbon Dioxide 29 Anion Gap 2 BUN 19 Creatinine < 0.30 L Est GFR ( Amer) 286.1 Est GFR (Non-Af Amer) 236.5 BUN/Creatinine Ratio 63.0 H Glucose 172 H POC Glucose (mg/dL) 215 H Calcium 7.4 L Ionized Calcium Phosphorus 2.3 L Magnesium 1.6 L Total Bilirubin 0.40 AST 15 ALT 6 L Alkaline Phosphatase 78 B-Natriuretic Peptide Total Protein 3.9 L Albumin 2.4 L Globulin 1.5 L Albumin/Globulin Ratio 1.6 Triglycerides 214 Procalcitonin Studies: 03/23 CXR - hyperinflation. bibasilar atelectasis vs consolidation. small left pleural effusion 03/22 CXR - patchy airspace disease of left lung base. hyperinflation. no pneumothorax. 03/21 CTA chest - no PE. moderate bilateral pleural effusions with adjaced atelectasis. patchy ground glass opacities throughout both lungs. Nondisplaced fractures of left posterior 9-10th ribs. ? midsternal fracture, mildly displaced 03/21 CXR - LLL consolidation with patchy airspace disease throughout. small bilateral pleural effusions. 03/21 CXR - CHF with interval progression 03/20 CXR - CHF with interval improvement 03/19 CXR - extensive bilateral infiltrates and small bilateral effusions, unchanged 03/19 CT abd/pelvis - large amount of free intraperitoneal air, moderate ascites 03/17 CXR - pulmonary intersitital and alveolar edema with small bilateral pleural effusions and bibasilar atelectasis vs consolidation 03/16 CTA chest - No PE. large bilateral pleural effusions with compressive atelectasis. interstitial edema c/w CHF. small 5mm nodule in RML wich is noncalcified and unchanged from 12/17/201703/10 CT abd/pelvis - bilateral pleural effusions, ascites, fatty infiltration of liver, atherosclerosis, right prox femur fracture. No discrete fractures of left 9th and 10th ribs, no lymphadenopathy or other fundings ot suggest metastatic disease 03/09 US liver - 10.1 cm complex cystic lesion deep to pancreas, additinoal 2 cm pancreatic hypodensity. Complex fluid or edema lateral to right kidney. 03/09 US BLE - No DVT 03/09 XR pelvis - displaced angulated intertrochanteric fx of right femur 03/09 CT brain - no acute pathology Nutrition: TPN. starting trickle TF Impression: 48yo F admitted 03/09 after a fall with right trochanteric femur fracture. Underwent ORIF 03/14/2018. Postop developed cecal perforation requiring return to OR and right hemicolectomy on 03/19/2018. No with acute hypoxic respiratory failure, volume overload, sepsis due to peritonitis and UTI and general failure to thrive. Plan: Cardiovascular: (1) Septic shock; (2) Sinus tachycardia, resolved -- HR 59-81 -- SBP 92-110 -- Telemetry -- BNP unchanged at > 1300 -- Vasopressors Levophed weaned off Vasopressin @ 0.04 units/min -- Lasix increased to TID for diuresis -- Albumin ATC Home meds: None Pulmonary: (1) Acute hypoxic respiratory failure secondary to volume overload; (2) ARDS; (3) New pulmonary nodules noted on admission CXR -- RR 12-21 -- sats 93-98 -- vent: wean as able, anticipate further need for diuresis before attempting liberation from ventilator -- PRN Albuterol and scheduled Duonebs -- Outpatient followup with pt's oncologist regarding finding of pulmonary nodules on CXR Home meds: None Gastrointestinal: (1) Cecal perforation with peritonitis s/p exlap and right hemicolectomy with primary anastamosis, 03/19/2018;(2) Severe protein calorie malnutrition; (3) Liver cirrhosis with ascites, new diagnosis; (4) hx of colorectal cancer, 2007; (5) hx of pancreatitis -- LFTs Tbili 0.40 ALK 78 from 119, follow trend AST 15 ALT 6 -- diet: TPN until TF at goal. -- bowel regimen: None -- ulcer prophylaxis: Protonix -- PRN Zofran -- per d/w DR. Colón, started on Creon as now enteral access available Home meds: Loperamide, Pepcid Endocrine: No acute issues -- monitor BGs -- SSI Home meds: None Renal: (1) Volume overload secondary to hypoalbuminemia; (2) Hyponatremia; (3) Hypocalcemia; (4) hypomagnesemia -- UOP: 196 ml/hr -- I/O:4050 ml in / 4710 ml out -- Cr <0.3 -- Lytes Na 131 from 131, follow trend K 3.4, replaced Ca 7.4, ionized 1.08, replaced Mag 1.6, replaced Phos 2.3, replaced -- IVF: HL -- Lasix TID for diuresis Home meds: Calcium citrate/Vit D3 Infectious disease: (1) Sepsis, improving; (2) Peritonitis, polymicrobial; (3) Ecoli and pseudomonas UTI; (4) Vulvar yeast infection -- Tmax 100.4 -- WBC 6.4 form 7.0 -- Micro 03/22 blood no growth to date 03/20 blood no growth to date 03/19 Ascites Pseudomonas Aeruginosa Citrobater Amalonaticus jannet albicans 03/16 Urine pseudomonas blood negative 03/13 blood negative 03/12 blood negative 03/11 blood negative urine pseudomonas e.coli 03/09 blood MSSA 02/10 vials -- ABX Cefepime Flagyl Vancomycin Diflucan for jannet in ascites fluid Home meds: None Neurologic: (1) Chronic peripheral neuropathy, idiopathic progressive; (2) EtOH abuse; (3) Chronic opiate use; (4) Frequent falls -- Propofol and precedex gtt for sedation -- Fentanyl and Lidoderm patches, PRN IV Dilaudid for pain control -- PRN Ativan for anxiety -- PRN Tylenol -- Pain service consult noted Home meds: Oxycontin 10mg po BID, percocet 5mg 1-2 pills po q4 hrs and ativan 1mg po BID, Folic acid, Thiamine Hematological: (1) Anemia; (2) hx of colorectal cancer, 2007 -- Hgb 8.1 from 8.7 -- Plt 151 from 188 -- DVT prophylaxis: SQ Heparin Home meds: None Metabolic: No acute issues Home meds: None Other: (1) Failure to thrive; (2) right hip fracture s/p ORIF, 03/14/2018; (3) recent right distal radius fx 01/2018; (4) Coccyx and left posterior knee decubiti, noted on admission; (5) ? Left 9th and 10th rib fractures, posterior, nondisplaced; (6) Questionable midsternal minimally displaced fracture vs artefact -- see pain control measures above Deep vein thrombosis prophylaxis: SQ Heparin Dietary: Protonix Condition: Critical Prognosis: Poor Code status: Full Disposition: continue ICU Care Cumulative time spent in the care of this patient (excluding any procedure time) : at least 40 minutes. Patient care included clinical interview (with patient and/or family), bedside exam of the patient, review of labs, x-rays, and other ancillary data, coordination of (respiratory, nursing care, review of patient's records, discussion regarding patients management with involved consultants, primary physician, pharmacists, and other healthcare personnel (dietary, case management , physical/occupational therapy etc.) Critical Care Time: 40 min
[2018-03-24] MEDS ORDERED: Potassium Chloride LIQUID* 20 MEQ PACKET PO ONE (08:10)
[2018-03-24] MEDS ORDERED: Magnesium Sulfate 2 GM IV* 2 GM/50 ML BAG IVPB ONE (08:12)
[2018-03-24] MEDS: Pantoprazole IV* 40 MG IV SCH (08:36)
[2018-03-24] MEDS: Furosemide IV* 10 MG/ML VIAL (40 MG) IV SCH ×2 (08:36→17:04)
[2018-03-24] MEDS ORDERED: Calcium Gluconate INJ* 2 GM in NS 0.9% 100 ML* 100 ML IV ONE (09:00)
[2018-03-24] MEDS ORDERED: Albuterol/Ipratropium NEB.SOL* Albuterol 2.5 MG/Ipratropium 0.5 MG 3 ML INH SCH (09:00)
[2018-03-24] MEDS ORDERED: Sodium Phosphate INJ* 30 MMOLE in NS 0.9% 250 ML* 250 ML IVPB ONE (09:00)
[2018-03-24] MEDS ORDERED: NS 0.9% 100 ML* 100 ML ONE (09:31)
--- NOTE | 2018-03-24 09:31 | PN ---
Progress Note - Progress Note Date of Service: 03/24/18 - interval update Note: Pt's ex-/POA updated at bedside regarding progress and plan of care for today
[2018-03-24] MEDS ORDERED: Alteplase (CATHFLO)* 2 MG VIAL IV ONE (09:37)
[2018-03-24] MEDS: KCL 20 MEQ/100 ML IVPREMIX* 20 MEQ/100 ML BAG IV SCH ×2 (09:38→12:16)
[2018-03-24] MEDS: Dexmedetomidine* 400 MCG in NS 0.9% 100 ML* 96 ML IVPB SCH ×2 (10:00→21:50)
[2018-03-24] MEDS: Clotrimazole 1% CREAM* 45 GM TOPICAL SCH ×2 (10:03→22:16)
[2018-03-24] MEDS: Lidocaine PATCH 5%* 1 PATCH TRANSDERM SCH (10:11)
[2018-03-24] MEDS: Miconazole TOPICAL CREAM 2%* 30 GM TOPICAL SCH ×2 (10:14→22:17)
[2018-03-24] MEDS: Fluconazole 100 MG IVPREMIX(*) 100 MG/50 ML BAG IVPB SCH (10:55)
[2018-03-24] MEDS: Albuterol/Ipratropium NEB.SOL* Albuterol 2.5 MG/Ipratropium 0.5 MG 3 ML INH SCH ×3 (11:58→19:45)
[2018-03-24] MEDS: fentaNYL PATCH 50 MCG/HR TRANSDERM SCH (13:36)
--- NOTE | 2018-03-24 13:48 | PN ---
Progress Note - Progress Note Date of Service: 03/24/18 Note: Surgery Progress Note S: Patient has remained relatively stable overnight. DHT was placed yesterday and tube feeds were initiated. Venous duplex of the RUE showed a nonocclusive thrombus in the cephalic vein. She remains intubated and sedated. She has been afebrile. No recorded BM yesterday. I discussed plan of care with daughter and son at the bedside and all questions were answered. O: Vital Signs: Temp Pulse Resp BP Pulse Ox 96.6 F 68 25 101/79 93 03/24/18 13:00 03/24/18 13:00 03/24/18 13:36 03/24/18 10:30 03/24/18 13:00 Vital Signs - 24 hr 03/23/18 03/23/18 03/23/18 14:00 14:01 14:30 Temperature 98.1 F 98.1 F 97.9 F Pulse Rate 65 65 64 Respiratory 14 Rate Blood Pressure 90/68 89/67 (mmHg) O2 Sat by Pulse 96 96 96 Oximetry 03/23/18 03/23/18 03/23/18 14:42 14:52 15:00 Temperature 97.9 F Pulse Rate 65 Respiratory 19 18 Rate Blood Pressure 87/66 (mmHg) O2 Sat by Pulse 96 Oximetry 03/23/18 03/23/18 03/23/18 15:01 15:30 16:00 Temperature 97.9 F 97.7 F 97.7 F Pulse Rate 65 65 65 Respiratory 19 Rate Blood Pressure 91/69 87/66 (mmHg) O2 Sat by Pulse 95 96 96 Oximetry 03/23/18 03/23/18 03/23/18 16:01 16:30 17:00 Temperature 97.7 F 97.7 F 97.7 F Pulse Rate 64 64 64 Respiratory 15 Rate Blood Pressure 89/69 89/67 (mmHg) O2 Sat by Pulse 96 96 95 Oximetry 03/23/18 03/23/18 03/23/18 17:01 17:30 17:53 Temperature 97.7 F 97.5 F Pulse Rate 64 63 Respiratory 20 Rate Blood Pressure 98/69 (mmHg) O2 Sat by Pulse 95 95 Oximetry 03/23/18 03/23/18 03/23/18 18:00 18:01 18:30 Temperature 97.5 F 97.5 F 97.3 F Pulse Rate 64 64 64 Respiratory Rate Blood Pressure 95/72 101/71 (mmHg) O2 Sat by Pulse 95 95 96 Oximetry 03/23/18 03/23/18 03/23/18 19:00 19:01 19:23 Temperature 97.5 F 97.5 F Pulse Rate 63 63 Respiratory 15 20 Rate Blood Pressure 98/72 (mmHg) O2 Sat by Pulse 96 96 Oximetry 03/23/18 03/23/18 03/23/18 19:25 19:30 20:00 Temperature 97.3 F 97.3 F Pulse Rate 64 65 65 Respiratory 21 Rate Blood Pressure 88/67 89/66 (mmHg) O2 Sat by Pulse 96 96 96 Oximetry 03/23/18 03/23/18 03/23/18 20:01 20:30 21:00 Temperature 97.3 F 97.2 F 97.0 F Pulse Rate 65 65 63 Respiratory 21 Rate Blood Pressure 89/67 89/68 (mmHg) O2 Sat by Pulse 97 96 96 Oximetry 03/23/18 03/23/18 03/23/18 21:01 21:30 22:00 Temperature 97.0 F 97.0 F 97.0 F Pulse Rate 64 63 63 Respiratory 20 Rate Blood Pressure 94/70 93/70 (mmHg) O2 Sat by Pulse 96 97 96 Oximetry 03/23/18 03/23/18 03/23/18 22:01 22:14 22:30 Temperature 97.0 F 97.0 F 97.0 F Pulse Rate 62 62 62 Respiratory Rate Blood Pressure 93/69 (mmHg) O2 Sat by Pulse 96 96 97 Oximetry 03/23/18 03/23/18 03/23/18 23:00 23:01 23:30 Temperature 96.8 F 96.8 F 96.8 F Pulse Rate 63 65 62 Respiratory 16 Rate Blood Pressure 97/69 96/71 (mmHg) O2 Sat by Pulse 96 97 97 Oximetry 03/24/18 03/24/18 03/24/18 00:00 00:01 00:30 Temperature 96.8 F 96.8 F 96.6 F Pulse Rate 61 61 60 Respiratory 21 Rate Blood Pressure 97/72 103/73 (mmHg) O2 Sat by Pulse 97 97 98 Oximetry 03/24/18 03/24/18 03/24/18 01:00 01:01 01:30 Temperature 96.6 F 96.6 F 96.4 F Pulse Rate 63 63 63 Respiratory 18 Rate Blood Pressure 82/58 96/70 (mmHg) O2 Sat by Pulse 98 98 97 Oximetry 03/24/18 03/24/18 03/24/18 02:00 02:01 02:30 Temperature 96.4 F 96.4 F 96.3 F Pulse Rate 61 60 60 Respiratory 19 Rate Blood Pressure 98/74 97/68 (mmHg) O2 Sat by Pulse 98 98 97 Oximetry 03/24/18 03/24/18 03/24/18 03:00 03:01 03:06 Temperature 96.4 F 96.4 F Pulse Rate 60 60 Respiratory 18 12 Rate Blood Pressure 99/70 (mmHg) O2 Sat by Pulse 95 95 Oximetry 03/24/18 03/24/18 03/24/18 03:25 03:30 04:00 Temperature 96.4 F 96.4 F Pulse Rate 61 62 Respiratory 18 Rate Blood Pressure 96/65 101/75 (mmHg) O2 Sat by Pulse 95 96 Oximetry 03/24/18 03/24/18 03/24/18 04:01 05:00 05:01 Temperature 96.4 F 96.3 F 96.3 F Pulse Rate 60 63 63 Respiratory 15 Rate Blood Pressure 90/67 (mmHg) O2 Sat by Pulse 96 95 96 Oximetry 03/24/18 03/24/18 03/24/18 05:30 06:00 06:01 Temperature 96.4 F 96.6 F 96.6 F Pulse Rate 60 61 61 Respiratory 12 Rate Blood Pressure 98/68 94/66 (mmHg) O2 Sat by Pulse 97 97 96 Oximetry 03/24/18 03/24/18 03/24/18 06:30 07:00 07:01 Temperature 96.6 F 97.0 F 97.0 F Pulse Rate 60 66 65 Respiratory 12 Rate Blood Pressure 97/72 97/68 (mmHg) O2 Sat by Pulse 96 96 95 Oximetry 03/24/18 03/24/18 03/24/18 07:30 07:57 08:00 Temperature 97.2 F 97.2 F Pulse Rate 65 67 66 Respiratory 24 18 Rate Blood Pressure 97/72 86/65 (mmHg) O2 Sat by Pulse 97 96 95 Oximetry 03/24/18 03/24/18 03/24/18 08:01 08:25 08:30 Temperature 97.2 F 97.0 F 97.0 F Pulse Rate 67 66 68 Respiratory Rate Blood Pressure 94/65 92/68 (mmHg) O2 Sat by Pulse 95 96 96 Oximetry 03/24/18 03/24/18 03/24/18 09:00 09:01 09:30 Temperature 97.0 F 97.0 F 96.8 F Pulse Rate 64 63 66 Respiratory 16 Rate Blood Pressure 94/69 81/58 (mmHg) O2 Sat by Pulse 96 96 92 Oximetry 03/24/18 03/24/18 03/24/18 10:00 10:01 10:28 Temperature 96.8 F 96.6 F Pulse Rate 78 80 Respiratory 27 21 Rate Blood Pressure 75/59 (mmHg) O2 Sat by Pulse 96 91 Oximetry 03/24/18 03/24/18 03/24/18 10:30 11:00 11:58 Temperature 96.6 F 96.6 F Pulse Rate 73 67 93 Respiratory 21 20 Rate Blood Pressure 101/79 (mmHg) O2 Sat by Pulse 94 94 67 Oximetry 03/24/18 03/24/18 03/24/18 12:00 13:00 13:36 Temperature 96.4 F 96.6 F Pulse Rate 67 68 Respiratory 17 23 25 Rate Blood Pressure (mmHg) O2 Sat by Pulse 94 93 Oximetry Laboratory Results - last 24 hr 03/22/18 03/23/18 03/23/18 06:10 17:04 21:02 WBC RBC Hgb Hct MCV MCH MCHC RDW Plt Count MPV Sodium Potassium Chloride Carbon Dioxide Anion Gap BUN Creatinine Est GFR ( Amer) Est GFR (Non-Af Amer) BUN/Creatinine Ratio Glucose POC Glucose (mg/dL) 341 H 215 H Calcium Ionized Calcium Phosphorus Magnesium Total Bilirubin AST ALT Alkaline Phosphatase B-Natriuretic Peptide Total Protein Albumin Globulin Albumin/Globulin Ratio Triglycerides Procalcitonin 0.67 H 03/24/18 03/24/18 03/24/18 02:21 05:02 05:02 WBC RBC Hgb Hct MCV MCH MCHC RDW Plt Count MPV Sodium Potassium Chloride Carbon Dioxide Anion Gap BUN Creatinine Est GFR ( Amer) Est GFR (Non-Af Amer) BUN/Creatinine Ratio Glucose POC Glucose (mg/dL) 272 H Calcium Ionized Calcium 1.08 L Phosphorus Magnesium Total Bilirubin AST ALT Alkaline Phosphatase B-Natriuretic Peptide > 1300 H Total Protein Albumin Globulin Albumin/Globulin Ratio Triglycerides Procalcitonin 03/24/18 03/24/18 03/24/18 05:02 05:02 05:06 WBC 6.4 RBC 2.44 L Hgb 8.1 L Hct 24 L MCV 98 H MCH 33 H MCHC 34 RDW 21 H Plt Count 151 MPV 8.9 Sodium 131 L Potassium 3.4 L Chloride 100 L Carbon Dioxide 29 Anion Gap 2 BUN 19 Creatinine < 0.30 L Est GFR ( Amer) 286.1 Est GFR (Non-Af Amer) 236.5 BUN/Creatinine Ratio 63.0 H Glucose 172 H POC Glucose (mg/dL) 215 H Calcium 7.4 L Ionized Calcium Phosphorus 2.3 L Magnesium 1.6 L Total Bilirubin 0.40 AST 15 ALT 6 L Alkaline Phosphatase 78 B-Natriuretic Peptide Total Protein 3.9 L Albumin 2.4 L Globulin 1.5 L Albumin/Globulin Ratio 1.6 Triglycerides 214 Procalcitonin 03/24/18 03/24/18 08:50 13:07 WBC RBC Hgb Hct MCV MCH MCHC RDW Plt Count MPV Sodium Potassium Chloride Carbon Dioxide Anion Gap BUN Creatinine Est GFR ( Amer) Est GFR (Non-Af Amer) BUN/Creatinine Ratio Glucose POC Glucose (mg/dL) 203 H 213 H Calcium Ionized Calcium Phosphorus Magnesium Total Bilirubin AST ALT Alkaline Phosphatase B-Natriuretic Peptide Total Protein Albumin Globulin Albumin/Globulin Ratio Triglycerides Procalcitonin Intake & Output 03/23/18 03/24/18 03/24/18 22:59 06:59 14:59 Intake Total 2580 50 Output Total 1740 1325 2500 Balance -1740 1255 -2450 Weight 104 lb 105 lb 2.568 oz Intake: IV Fluids 1025 ABX - CEFEPIME 67 NS (0.9%) 458 albumin 500 IVPB 50 magnesium 50 Medicated IV 248 CC - Propofol/Diprivan 180 CC - Vasopressin/ 68 Pitressin TPN/PPN 1307 Output: J Tube 20 T Tube 40 EMELIA #2 [id number] [place] [id number] Abd: soft, incision c/d/i, geena in place. EMELIA x 2 with serous fluid A/P: 48 F with multiple medical problems including chronic ETOH, malnutrition, right hip fx, POD 5 from dx lap, ex lap, right hemicolectomy for cecal perforation, remains critical but stable. - Tube feeds started and can be slowly advanced - Patient has significant liver disease, hypoalbumenia and ascites with large volume from her EMELIA drains not unexpectedly. Hopefully this will improve as she continues to be diuresed - Continue antibiotics, sensitivities returned for intraabdominal chetna. Patient on cefepime, flagyl, fluconazole - Patient to be weaned to extubated over the next several days by ICU team
--- NOTE | 2018-03-24 14:32 | PN ---
Progress Note - Progress Note Date of Service: 03/24/18 Note: WOUND PROGRESS NOTE Date of Service: 03/24/18 History: Interval History: Patient seen and examined at bedside. No complaints. She is noted to have frequent loose stools. Ms. Valdez has recently had significant peripheral neuropathy that has been worked up by Dr. Schwartz and she received IVIG. She has also been following with GI. She has continued to drink alcohol and has been noted to be declining over the past month. She has been having difficulty with ambulation secondary to sensory loss. On the evening of 03/07 Ms. Valdez had a fall resulting in right hip pain. She presented to the emergency room where she was found to have a right hip fracture. She has also reported difficulty with swallowing, with coughing after eating and drinking. She has been seen in consult by orthopedics , oncology and neurology. She was noted to have skin breakdown to her coccyx and left posterior knee on admission. On 03/14/18 she underwent a right hip ORIF with Dr. Lopez. On the morning of 03/17/18, she was transferred to ICU for hypoxemia and fluid overload, and started on vapotherm. On 03/18/18 she developed abdominal pain and was taken to the OR on 03/19/18 for an exploratory laparotomy where she was found to have a cecal perforation and underwent a right hemicolectomy. She remain intubated after surgery and was extubated on 03/21/18. She later required reintubation and is currently intubated. Patient seen and examined at bedside. Patient is intubated and unable to give a ROS. Per NS staff the loose stools are decreasing. Past Medical/Family/Social History: Family History: Unchanged from Admission Social History: Unchanged from Admission Past Medical History: Unchanged from Admission Objective: Active Medications: Lorazepam (Ativan Inj*) 0.5 mg IV PUSH Q4H PRN Reason: ANXIETY Propofol (Diprivan*) 100 mls @ 3.096 mls/hr IV .(Initial Rate) RIKKI; Protocol Vasopressin 100 units/ (Dextrose) 250 mls @ 6 mls/hr IVPB Q24H [facility]KKI; Protocol Albumin Human (Albumin Human 25%*) 25 gm in 100 mls @ 200 mls/hr IV Q6H RIKKI Stop: 03/25/18 09:59 Albuterol (Ventolin 2.5 Mg/3 Ml Neb.Radha*) 2.5 mg INH Q2H PRN Reason: SOB/ WHEEZING Heparin Sodium (Porcine) (Heparin Flush Picc/Ml/Cvc(*)) 1 - 3 ml FLUSH 0600, 1800 [facility]; Protocol Albuterol/Ipratropium (Duoneb (Albuterol 2.5 Mg/Ipratropium 0.5 Mg)) 1 neb INH Q4H RIKKI Dextrose 500 ml/ Amino Acids 850 ml/ Sterile Water 150 ml/Fat Emulsion Intravenous 250 ml/ Sodium Chloride 120 meq/Potassium Chloride 50 meq/Potassium Phosphate 15 mmole/Calcium Gluconate 15 meq/Magnesium Sulfate 10 meq/ Multivitamins 10 ml/ Trace Metals 1 ml/ Nutrition ( Parenteral) 1,855.721 mls @ 77.322 mls/hr CENTR 1700 [facility] Stop: 03/24/18 16:59 Cefepime HCl (Maxipime 2 Gm In Dextrose Duplex (*)) 2 gm in 50 mls @ 100 mls/ hr IV Q12H [facility] Chlorhexidine Gluconate (Peridex Mouth Wash 0.12%*) 15 ml TOPICAL Q4HR [facility] Clotrimazole (Clotrimazole 1%*) 1 applic TOPICAL BID [facility] Acetaminophen (Tylenol Adult Liq*) 650 mg PO Q6H PRN Reason: TEMP EQUAL OR GREATER 101 F Dexmedetomidine HCl 400 mcg/ (Sodium Chloride) 100 mls @ 2.52 mls/hr IVPB Q24H [facility]; Protocol Dextrose (D50w Syringe 50 Ml*) 12.5 gm IV PUSH .FOR FS < 60 - SS PRN Reason: FS < 60 Fentanyl (Duragesic Patch 50 Mcg/Hr*) 50 mcg TRANSDERM Q72H [facility] Fluoxetine HCl (Prozac Cap*) 10 mg PO DAILY [facility] Fluconazole/Sodium Chloride (Diflucan 100 Mg Ivpremix(*)) 100 mg in 50 mls @ 100 mls/hr IVPB Q24H [facility] Stop: 03/29/18 09:00 Heparin Sodium (Porcine) (Heparin Vial(*)) 5,000 units SUBCUT Q8HR [facility] Furosemide (Lasix Iv*) 40 mg IV Q8H [facility] Hydromorphone HCl (Dilaudid Inj1s*) 0.5 mg IV SLOW PU Q2H PRN Reason: PAIN - MODERATE TO SEVERE Insulin Human Lispro (Humalog*) 0 units SUBCUT Q4H [facility]; Protocol Lidocaine (Lidoderm 5% Patch*) 1 patch TRANSDERM DAILY [facility] Melatonin (Melatonin) 3 mg PO BEDTIME [facility]; Protocol Metronidazole/Sodium Chloride (Flagyl 500 Mg Ivpb*) 500 mg in 100 mls @ 100 mls /hr IVPB Q8H [facility] Miconazole Nitrate (Monistat 2%*) 1 applic TOPICAL BID [facility] Bag*) 4,000 mcg in 250 mls @ 37.5 mls/hr IV .INITIAL RATE [facility]; Protocol Pancrelipase (Zenpep Delayed Cap*) 5,000 units PO TID WITH MEALS [facility] Pantoprazole Sodium (Protonix Iv*) 40 mg IV DAILY [facility] Pharmacy Profile Note (Lidocaine Patch Remove*) 1 note N/A 2100 [facility] Pharmacy Profile Note (Fentanyl Patch Check Q Shift) 1 note N/A 0700,1900 [facility] Sodium Phosphate 30 mmole/ (Sodium Chloride) 260 mls @ 42 mls/hr IVPB ONCE ONE Stop: 03/24/18 15:11 Vital Signs: 03/24/18 13:00 Temperature 96.6 F Temperature Core Source Pulse Rate 68 Heart Rate 68 Respiratory 25 Rate from CO2 Sensor O2 Sat by Pulse 93 Oximetry Arterial Blood 109/69 Pressure (ART) ART Mean 86 Respiratory End 23 -Tidal CO2 Exam: General: NAD, laying in bed Neuro: Sedated Skin: Sacral wound: Stage 2 pressure injury with a deep tissue injury - 3.8 cm x 1.5 cm x 0.1 cm. Open area with pink tissue in the wound bed. There is also purlish discoloration at the edges of the wound bed. Data: Labs: 03/21/18 03/24/18 03/24/18 05:45 05:02 05:02 WBC 6.4 Hgb 8.1 L Hct 24 L Plt Count 151 Sodium 131 L Potassium 3.4 L Chloride 100 L Carbon Dioxide 29 BUN 19 Creatinine < 0.30 L Est GFR (Non-Af Amer) 236.5 Glucose 172 H Total Protein 3.9 L Albumin/Globulin Ratio 1.6 Prealbumin 3 L Assessment/Plan: Ms. Valdez is a 48 yo female with PMH significant for colon cancer, alcohol abuse and severe progression of peripheral neuropathy with unknown etiology, who presented to the emergency room after a fall resulting in a right hip fracture. 1. Stage 2 pressure injury to sacrum/coccyx. There are also signs of a deep tissue injury this week. Recommend barrier cream and frequent turning. If an Opifoam dressing is used for pressure reduction, ensure that it is kept clean and not soiled with stool. 2. Severe malnutrition. Albumin is 1.5 and Pre-albumin is 6. This is evidenced by muscle wasting and weight loss. This will make wound healing more difficult. VTE PPX: SQ Heparin Diet: Tube feeding Code Status: Full Code Status. Disposition: Inpatient. Disposition per the Primary Medicine Team. Time Spent: A total of 15 minutes was spent assessing and measuring/ photographing the wounds. Attending: Dr. Ludivina Rowan MD
[2018-03-24] MEDS: Pancrelipase CAP* 5,000 UNITS CAP PO SCH ×2 (14:35→14:48)
[2018-03-24 15:02] LABS: Anion Gap 2 mmol/L (2-11); Blood Urea Nitrogen 18 mg/dL (6-24); CO2 Carbon Dioxide 28 mmol/L (22-32); Calcium 8.4 mg/dL (8.6-10.3); Chloride 101 mmol/L (101-111); EGFR African American 286.1 (>60); EGFR Non-African American 236.5 (>60); Glucose 308 mg/dL (70-100); Magnesium 1.9 mg/dL (1.9-2.7); Phosphorus 3.9 mg/dL (2.5-5.0); Sodium 131 mmol/L (135-145)
--- NOTE | 2018-03-24 16:37 | PN ---
Progress Note - Progress Note Date of Service: 03/24/18 SOAP: Subjective: []Pt seen at bedside. She is intubated and unable to interact with me. Her family is at her bedside. Objective: []General: Pt remains intubated R hip dressing CDI no surrounding erythema. Thigh is soft. Assessment: []s/p R hip gamma nailing 2/[address] Lopez. - Multiple Co-morbidities including rectal CA and bowel perforation Plan: - DVT prophylaxis heparin- per hospitalist - Continue PT/ OT- TTWB RLW -Appreciate medical and ICU management - Nursing will change dressing today when patient is repositioned, dressings currently difficult to access
[2018-03-24] MEDS: Vasopressin* 100 UNITS in D5W 250 ML BAG* 245 ML IVPB SCH ×2 (19:58→20:15)
[2018-03-24] MEDS: Propofol* 100 ML IV SCH (20:08)
[2018-03-24] MEDS: Melatonin 3 MG TAB PO SCH (21:05)
[2018-03-24] MEDS: Insulin GLARGINE(*) 1 UNITS UNIT SUBCUT SCH (21:09)
[2018-03-24] MEDS: Lidocaine Patch REMOVE* 1 NOTE MISC SCH (22:17)
[2018-03-24] MEDS: Furosemide IV* 10 MG/ML VIAL (40 MG) IV SLOW PU SCH (22:49)
[2018-03-25] MEDS: Insulin LISPRO* 1 UNITS UNIT SUBCUT SCH ×6 (01:23→21:04)
[2018-03-25] MEDS: Furosemide IV* 10 MG/ML VIAL (40 MG) IV SCH ×3 (01:29→16:30)
[2018-03-25] MEDS: Cefepime 2 GM in Dextrose(*) 2 GM/50 ML BAG IV SCH ×2 (01:29→12:33)
[2018-03-25] MEDS: Chlorhexidine MOUTHWASH 0.12%* 15 ML UDC TOPICAL SCH ×6 (01:47→22:44)
[2018-03-25] MEDS: Propofol* 100 ML IV SCH ×3 (03:22→16:23)
[2018-03-25] MEDS: metroNIDAZOLE IV 500 MG/100ML* 500 MG/100 ML BAG IVPB SCH ×3 (03:22→19:37)
[2018-03-25] MEDS: HYDROmorphone INJ1* 1 MG/ML SYRINGE IV SLOW PU PRN ×5 (04:01→16:30)
[2018-03-25 05:38] LABS: Hematocrit 23 % (35-47); Hemoglobin 7.8 g/dl (12.0-16.0); Mean Corpuscular HGB Conc 34 g/dl (31-36); Mean Corpuscular Hemoglobin 33 pg (27-31); Mean Corpuscular Volume 98 fL (80-97); Mean Platelet Volume 9.5 fL (7.4-10.4); Platelet Count 128 10^3/ul (150-450); Red Blood Count 2.37 10^6/ul (4.00-5.40); Red Cell Distribution Width 21 % (10.5-15); White Blood Count 5.9 10^3/ul (3.5-10.8)
[2018-03-25 05:58] LABS: ALT 6 U/L (7-52); AST 15 U/L (13-39); Albumin 3.2 g/dL (3.2-5.2); Albumin/Globulin Ratio 2.5 (1-3); Alkaline Phosphatase 87 U/L (34-104); Anion Gap 2 mmol/L (2-11); Blood Urea Nitrogen 18 mg/dL (6-24); CO2 Carbon Dioxide 30 mmol/L (22-32); Calcium 7.9 mg/dL (8.6-10.3); Chloride 100 mmol/L (101-111); EGFR African American 286.1 (>60); EGFR Non-African American 236.5 (>60); Globulin 1.3 g/dL (2-4); Glucose 106 mg/dL (70-100); Magnesium 1.6 mg/dL (1.9-2.7); Phosphorus 2.8 mg/dL (2.5-5.0); Potassium 3.5 mmol/L (3.5-5.0); Sodium 132 mmol/L (135-145); Total Protein 4.5 g/dL (6.4-8.9)
[2018-03-25] MEDS: Heparin VIAL(*) 5000 UNITS/ML VIAL (FIVE THOUSAND) SUBCUT SCH ×3 (06:05→23:04)
[2018-03-25] MEDS: Albumin Human 25%* 25 GM/100 ML BTL IV SCH (06:25)
[2018-03-25] MEDS: fentaNYL Patch Check Q Shift 1 NOTE SCH ×2 (07:11→18:40)
[2018-03-25] MEDS ORDERED: Potassium Chloride LIQUID* 20 MEQ PACKET PO ONE (07:49)
[2018-03-25] MEDS ORDERED: Magnesium Sulfate 2 GM IV* 2 GM/50 ML BAG IVPB ONE (07:49)
[2018-03-25] MEDS ORDERED: Calcium Gluconate INJ* 1 GM in NS 0.9% 50 ML* 50 ML IVPB ONE ×2 (07:49→15:24)
--- NOTE | 2018-03-25 08:00 | PN ---
Date of Service: 03/25/18 - 17 Critical Care Services: 48 yo F presented to [facility] ED on 03/09/2018 after a fall two days prior. Since the fall she was unable to ambulate per family, also bilateral lower extremity edema and generalized weakness. On workup found to have a right intertrochanteric fracture. US BLE negative for DVT. CT brain negative for acute pathology. Admitted to the medical service. 03/10: Seen by orthopedics service, who recommended proceeding with ORIF when medically cleared. Found on workup to have new cirrhosis with decreased synthetic function and ammonia of 100, as well as failure to thrive. Options for goals of care, including palliative focused, discussed with family. 03/11: started on Rifaximin in addition to lactulose for elevated ammonia. ORIF postponed due to bacteremia; started on cefazolin. 03/13: repeat blood cultures negative. Cleared for surgery but high risk. 03/14: ORIF right femur fracture. 03/16: developed tachycardia. started on gentle fluid resuscitation. Found to have UTI with E.coli and Pseudomonas. Continued on Cefazolin 03/17: developed hypoxia, requiring 15L facemask. CTA done earlier showing bilateral pleural effusion. Given Lasix x 1. Transferred to ICU for vapotherm. 03/18: ID consulted. ABx changed to Zosyn for 7 day course. 03/19: Developed worsened abdominal pain. CT abdomen with free air. General surgery consulted and went to OR for exlap. Found to have cecal perforation; right hemicolectomy with primary anastamosis performed. Noted to have gross peritonitis with pus in gutters. Returned to ICU post procedure, on ventilator. 03/20: Successfully extubated. 03/21: passing gas. AFebrile. on PPN. ABx changed to Cefepime and Flagyl for combined abdominal and vaginal/vulvar coverage. Pain service consulted. 03/22: overnight pt developed increased hypoxia. intubated. requiring PEEP 10a nd FiO2 100% with sats only 88%. Tachycardic to 130s. CTA obtained; negative for PE but demonstrates bilateral patchy infiltrates suggestive of pneumonia vs ARDS. 03/23: weaned off Levophed. NG placed. Scheduled diuresis started. 03/24: TF started. Vital Signs: Temp Pulse Resp BP SpO2 FiO2 99.3 F 76 19 88/60 98 40 03/25/18 07:00 03/25/18 07:00 03/25/18 06:00 03/24/18 22:48 03/25/18 07:00 03/25 04:00 Physical Exam: Gen: resting comfortably HEENT: intact. NG and ETT in place Lungs: inspiratory wheezes bilaterally Cardiac: RRR Abdomen: soft, NTND. serious fluid draining in JPs Extremities: warm, dry Neuro: sedated Fluid Balance (Past 24 Hours): I= O= Net Intake & Output 03/23/18 03/24/18 03/25/18 03/26/18 06:59 06:59 06:59 06:59 Intake Total 2586 4050.5 3746.2 Output Total 3285 4710 6377 Balance -699 -659.5 -2630.8 Weight 104 lb 11.513 oz 104 lb 104 lb 0.931 oz Intake: IV Fluids 750 1330 618.3 ABX - CEFEPIME 170 67 ABX - FLAGYL 247 KCL 117 NS (0.9%) 333 546 121 NS to Maintain IV Patency 301 albumin 600 107 sodium phosphate 89.3 IVPB 402 1098 ABX - CEFEPIME 55 55 ABX - FLAGYL 100 225 KCL 203 NS (0.9%) 72 antibiotics 202 calcium gluconate 60 120 fluconazole 50 magnesium 50 50 sodium phosphate 87 171 Medicated IV 884 431.5 549.9 CC - Dexmedetomidine/ 170 63 211.4 Precedex CC - Norepinephrine/ 356 Levophed CC - Propofol/Diprivan 226 255 267 CC - Vasopressin/ 132 113.5 71.5 Pitressin TPN/PPN 952 1887 902 Oral 0 0 Tube Feeding 488 Tube Feeding Flush Amount 90 Output: J Tube 145 20 T Tube 110 40 EMELIA #1 95 60 420 EMELIA #2 470 1450 1450 [place] 2465 3140 4507 Other: # Bowel Movements 2 Estimated Stool Amount Large Labs: Laboratory Results - last 24 hr 03/24/18 03/24/18 03/24/18 08:50 13:07 14:40 WBC RBC Hgb Hct MCV MCH MCHC RDW Plt Count MPV Sodium 131 L Potassium 5.0 D Chloride 101 Carbon Dioxide 28 Anion Gap 2 BUN 18 Creatinine < 0.30 L Est GFR ( Amer) 286.1 Est GFR (Non-Af Amer) 236.5 BUN/Creatinine Ratio 60.0 H Glucose 308 H POC Glucose (mg/dL) 203 H 213 H Calcium 8.4 L Ionized Calcium Phosphorus 3.9 Magnesium 1.9 Total Bilirubin AST ALT Alkaline Phosphatase B-Natriuretic Peptide Total Protein Albumin Globulin Albumin/Globulin Ratio 03/24/18 03/24/18 03/24/18 14:40 17:47 21:02 WBC RBC Hgb Hct MCV MCH MCHC RDW Plt Count MPV Sodium Potassium Chloride Carbon Dioxide Anion Gap BUN Creatinine Est GFR ( Amer) Est GFR (Non-Af Amer) BUN/Creatinine Ratio Glucose POC Glucose (mg/dL) 263 H 121 H Calcium Ionized Calcium 1.24 Phosphorus Magnesium Total Bilirubin AST ALT Alkaline Phosphatase B-Natriuretic Peptide Total Protein Albumin Globulin Albumin/Globulin Ratio 03/25/18 03/25/18 03/25/18 01:20 05:27 05:29 WBC RBC Hgb Hct MCV MCH MCHC RDW Plt Count MPV Sodium Potassium Chloride Carbon Dioxide Anion Gap BUN Creatinine Est GFR ( Amer) Est GFR (Non-Af Amer) BUN/Creatinine Ratio Glucose POC Glucose (mg/dL) 120 H 125 H Calcium Ionized Calcium Phosphorus Magnesium Total Bilirubin AST ALT Alkaline Phosphatase B-Natriuretic Peptide > 1300 H Total Protein Albumin Globulin Albumin/Globulin Ratio 03/25/18 03/25/18 03/25/18 05:29 05:29 05:29 WBC 5.9 RBC 2.37 L Hgb 7.8 L Hct 23 L MCV 98 H MCH 33 H MCHC 34 RDW 21 H Plt Count 128 L MPV 9.5 Sodium 132 L Potassium 3.5 D Chloride 100 L Carbon Dioxide 30 Anion Gap 2 BUN 18 Creatinine < 0.30 L Est GFR ( Amer) 286.1 Est GFR (Non-Af Amer) 236.5 BUN/Creatinine Ratio 60.0 H Glucose 106 H POC Glucose (mg/dL) Calcium 7.9 L Ionized Calcium 1.11 L Phosphorus 2.8 Magnesium 1.6 L Total Bilirubin 0.60 AST 15 ALT 6 L Alkaline Phosphatase 87 B-Natriuretic Peptide Total Protein 4.5 L Albumin 3.2 Globulin 1.3 L Albumin/Globulin Ratio 2.5 Studies: 03/25 CXR - increased vascularity bilaterally 03/23 CXR - hyperinflation. bibasilar atelectasis vs consolidation. small left pleural effusion 03/22 CXR - patchy airspace disease of left lung base. hyperinflation. no pneumothorax. 03/21 CTA chest - no PE. moderate bilateral pleural effusions with adjaced atelectasis. patchy ground glass opacities throughout both lungs. Nondisplaced fractures of left posterior 9-10th ribs. ? midsternal fracture, mildly displaced 03/21 CXR - LLL consolidation with patchy airspace disease throughout. small bilateral pleural effusions. 03/21 CXR - CHF with interval progression 03/20 CXR - CHF with interval improvement 03/19 CXR - extensive bilateral infiltrates and small bilateral effusions, unchanged 03/19 CT abd/pelvis - large amount of free intraperitoneal air, moderate ascites 03/17 CXR - pulmonary intersitital and alveolar edema with small bilateral pleural effusions and bibasilar atelectasis vs consolidation 03/16 CTA chest - No PE. large bilateral pleural effusions with compressive atelectasis. interstitial edema c/w CHF. small 5mm nodule in RML wich is noncalcified and unchanged from 12/17/201703/10 CT abd/pelvis - bilateral pleural effusions, ascites, fatty infiltration of liver, atherosclerosis, right prox femur fracture. No discrete fractures of left 9th and 10th ribs, no lymphadenopathy or other fundings ot suggest metastatic disease 03/09 US liver - 10.1 cm complex cystic lesion deep to pancreas, additinoal 2 cm pancreatic hypodensity. Complex fluid or edema lateral to right kidney. 03/09 US BLE - No DVT 03/09 XR pelvis - displaced angulated intertrochanteric fx of right femur 03/09 CT brain - no acute pathology Nutrition: TF Impression: 48yo F admitted 03/09 after a fall with right trochanteric femur fracture. Underwent ORIF 03/14/2018. Postop developed cecal perforation requiring return to OR and right hemicolectomy on 03/19/2018. Now with acute hypoxic respiratory failure, volume overload, sepsis due to peritonitis and UTI and general failure to thrive. Sepsis resolving. Attempting diuresis. Plan: Cardiovascular: (1) Septic shock; (2) Sinus tachycardia, resolved -- HR 63-93 -- SBP 95-113 -- Telemetry -- BNP unchanged at > 1300 -- Vasopressors Vasopressin @ 0.04 units/min -- Lasix TID for diuresis -- Albumin ATC Home meds: None Pulmonary: (1) Acute hypoxic respiratory failure secondary to volume overload; (2) ARDS, resolved; (3) Pulmonary edema; (4) New pulmonary nodules noted on admission CXR -- RR 14-25 -- sats 92-98 -- vent: wean as able, anticipate further need for diuresis before attempting liberation from ventilator -- CXR: pulmonary edema -- PRN Albuterol and scheduled Duonebs -- Outpatient followup with pt's oncologist regarding finding of pulmonary nodules on CXR Home meds: None Gastrointestinal: (1) Cecal perforation with peritonitis s/p exlap and right hemicolectomy with primary anastamosis, 03/19/2018;(2) Severe protein calorie malnutrition; (3) Liver cirrhosis with ascites, new diagnosis; (4) hx of colorectal cancer, 2007; (5) hx of pancreatitis -- LFTs Tbili 0.60 ALK 87 from 78 AST 15 ALT 6 -- diet: TF -- bowel regimen: None -- ulcer prophylaxis: Protonix -- PRN Zofran -- per d/w DR. Colón, started on Creon once able to take PO (unable to crush capsules to put down NG) Home meds: Loperamide, Pepcid Endocrine: No acute issues -- monitor BGs -- SSI and Lantus Home meds: None Renal: (1) Volume overload secondary to hypoalbuminemia; (2) Hyponatremia; (3) Hypocalcemia; (4) hypomagnesemia -- UOP: 266 ml/hr -- I/O:3746 ml in / 6377 ml out -- Cr <0.3 -- Lytes Na 132 from 131, follow trend. started on salt tabs K 3.5, replaced Ca 7.9, ionized 1.11, replaced Mag 1.6, replaced Phos 2.8 -- IVF: HL -- Lasix TID for diuresis Home meds: Calcium citrate/Vit D3 Infectious disease: (1) Sepsis, improving; (2) Peritonitis, polymicrobial; (3) Ecoli and pseudomonas UTI; (4) Vulvar yeast infection -- Tmax 99.5 -- WBC 5.9 from 6.4 -- Micro 03/24 sputum in progress 03/22 blood no growth to date 03/20 blood negative 03/19 Ascites Pseudomonas Aeruginosa Citrobater Amalonaticus jannet albicans 03/16 Urine pseudomonas blood negative 03/13 blood negative 03/12 blood negative 03/11 blood negative urine pseudomonas e.coli 03/09 blood MSSA 02/10 vials -- ABX Cefepime Flagyl Vancomycin Diflucan for jannet in ascites fluid Home meds: None Neurologic: (1) Chronic peripheral neuropathy, idiopathic progressive; (2) EtOH abuse; (3) Chronic opiate use; (4) Frequent falls -- Propofol and precedex gtt for sedation -- Fentanyl and Lidoderm patches, PRN IV Dilaudid for pain control -- PRN Ativan for anxiety -- PRN Tylenol -- Prozac started for depression -- Melatonin for sleep -- start multivitamin, thiamine and folate as malnutrition may be contributing to peripheral neuropathy -- Pain service consult noted Home meds: Oxycontin 10mg po BID, percocet 5mg 1-2 pills po q4 hrs and ativan 1mg po BID, Folic acid, Thiamine Hematological: (1) Anemia; (2) hx of colorectal cancer, 2007 -- Hgb 7.8 from 8.1 -- Plt 128 from 151 -- DVT prophylaxis: SQ Heparin Home meds: None Metabolic: No acute issues Home meds: None Other: (1) Failure to thrive; (2) right hip fracture s/p ORIF, 03/14/2018; (3) recent right distal radius fx 01/2018; (4) Coccyx and left posterior knee decubiti, noted on admission; (5) ? Left 9th and 10th rib fractures, posterior, nondisplaced; (6) Questionable midsternal minimally displaced fracture vs artefact -- see pain control measures above Deep vein thrombosis prophylaxis: SQ Heparin Dietary: Protonix Condition: Critical Prognosis: Poor Code status: Full Disposition: continue ICU Care Cumulative time spent in the care of this patient (excluding any procedure time) : at least 40 minutes. Patient care included clinical interview (with patient and/or family), bedside exam of the patient, review of labs, x-rays, and other ancillary data, coordination of (respiratory, nursing care, review of patient's records, discussion regarding patients management with involved consultants, primary physician, pharmacists, and other healthcare personnel (dietary, case management , physical/occupational therapy etc.) Critical Care Time: 40 min
[2018-03-25] MEDS: LORazepam INJ* 2 MG/ML 1 ML VIAL IV PUSH PRN ×3 (08:33→16:29)
[2018-03-25] MEDS: Clotrimazole 1% CREAM* 45 GM TOPICAL SCH ×2 (08:37→22:44)
--- NOTE | 2018-03-25 08:49 | PN ---
Progress Note - Progress Note Date of Service: 03/25/18 Note: Surgery Progress Note S: Patient had no significant overnight events. She had a BM overnight. TFs increased. She remains intubated and sedated on precedex and propofol. Vasopressin on very low dose. No fevers. She continues to be aggressively diuresed. O: Vital Signs - 24 hr 03/24/18 03/24/18 03/24/18 09:00 09:01 09:30 Temperature 97.0 F 97.0 F 96.8 F Pulse Rate 64 63 66 Respiratory 16 Rate Blood Pressure 94/69 81/58 (mmHg) O2 Sat by Pulse 96 96 92 Oximetry 03/24/18 03/24/18 03/24/18 10:00 10:01 10:28 Temperature 96.8 F 96.6 F Pulse Rate 78 80 Respiratory 27 21 Rate Blood Pressure 75/59 (mmHg) O2 Sat by Pulse 96 91 Oximetry 03/24/18 03/24/18 03/24/18 10:30 11:00 11:58 Temperature 96.6 F 96.6 F Pulse Rate 73 67 93 Respiratory 21 20 Rate Blood Pressure 101/79 (mmHg) O2 Sat by Pulse 94 94 67 Oximetry 03/24/18 03/24/18 03/24/18 12:00 13:00 13:36 Temperature 96.4 F 96.6 F Pulse Rate 67 68 Respiratory 17 23 25 Rate Blood Pressure (mmHg) O2 Sat by Pulse 94 93 Oximetry 03/24/18 03/24/18 03/24/18 13:48 14:00 15:00 Temperature 96.8 F 97.2 F Pulse Rate 66 70 Respiratory 15 22 Rate Blood Pressure (mmHg) O2 Sat by Pulse 94 95 Oximetry 03/24/18 03/24/18 03/24/18 15:13 16:00 17:00 Temperature 97.0 F 97.0 F Pulse Rate 74 69 74 Respiratory 18 22 22 Rate Blood Pressure (mmHg) O2 Sat by Pulse 94 94 96 Oximetry 03/24/18 03/24/18 03/24/18 17:04 18:00 19:00 Temperature 97.9 F 97.9 F Pulse Rate 71 77 Respiratory 20 22 Rate Blood Pressure (mmHg) O2 Sat by Pulse 96 96 Oximetry 03/24/18 03/24/18 03/24/18 19:45 20:00 21:00 Temperature 98.1 F 98.2 F Pulse Rate 77 77 72 Respiratory 17 19 15 Rate Blood Pressure (mmHg) O2 Sat by Pulse 95 97 98 Oximetry 03/24/18 03/24/18 03/24/18 22:00 22:48 23:00 Temperature 98.8 F 98.6 F 98.8 F Pulse Rate 72 74 71 Respiratory 18 21 Rate Blood Pressure 88/60 (mmHg) O2 Sat by Pulse 96 95 97 Oximetry 03/24/18 03/24/18 03/25/18 23:11 23:42 00:00 Temperature 98.8 F 98.6 F Pulse Rate 69 68 Respiratory 21 21 Rate Blood Pressure (mmHg) O2 Sat by Pulse 97 96 Oximetry 03/25/18 03/25/18 03/25/18 01:00 02:00 03:00 Temperature 98.8 F 99.0 F 99.1 F Pulse Rate 70 71 69 Respiratory 21 21 21 Rate Blood Pressure (mmHg) O2 Sat by Pulse 96 93 96 Oximetry 03/25/18 03/25/18 03/25/18 04:00 04:01 05:00 Temperature 99.5 F 99.5 F Pulse Rate 73 72 Respiratory 14 19 16 Rate Blood Pressure (mmHg) O2 Sat by Pulse 96 95 Oximetry 03/25/18 03/25/18 03/25/18 06:00 07:00 08:00 Temperature 99.3 F 99.3 F 99.5 F Pulse Rate 74 76 73 Respiratory 19 18 17 Rate Blood Pressure (mmHg) O2 Sat by Pulse 97 98 97 Oximetry 03/25/18 08:33 Temperature Pulse Rate Respiratory 17 Rate Blood Pressure (mmHg) O2 Sat by Pulse Oximetry Laboratory Results - last 24 hr 03/24/18 03/24/18 03/24/18 08:50 13:07 14:40 WBC RBC Hgb Hct MCV MCH MCHC RDW Plt Count MPV Sodium 131 L Potassium 5.0 D Chloride 101 Carbon Dioxide 28 Anion Gap 2 BUN 18 Creatinine < 0.30 L Est GFR ( Amer) 286.1 Est GFR (Non-Af Amer) 236.5 BUN/Creatinine Ratio 60.0 H Glucose 308 H POC Glucose (mg/dL) 203 H 213 H Calcium 8.4 L Ionized Calcium Phosphorus 3.9 Magnesium 1.9 Total Bilirubin AST ALT Alkaline Phosphatase B-Natriuretic Peptide Total Protein Albumin Globulin Albumin/Globulin Ratio 03/24/18 03/24/18 03/24/18 14:40 17:47 21:02 WBC RBC Hgb Hct MCV MCH MCHC RDW Plt Count MPV Sodium Potassium Chloride Carbon Dioxide Anion Gap BUN Creatinine Est GFR ( Amer) Est GFR (Non-Af Amer) BUN/Creatinine Ratio Glucose POC Glucose (mg/dL) 263 H 121 H Calcium Ionized Calcium 1.24 Phosphorus Magnesium Total Bilirubin AST ALT Alkaline Phosphatase B-Natriuretic Peptide Total Protein Albumin Globulin Albumin/Globulin Ratio 03/25/18 03/25/18 03/25/18 01:20 05:27 05:29 WBC RBC Hgb Hct MCV MCH MCHC RDW Plt Count MPV Sodium Potassium Chloride Carbon Dioxide Anion Gap BUN Creatinine Est GFR ( Amer) Est GFR (Non-Af Amer) BUN/Creatinine Ratio Glucose POC Glucose (mg/dL) 120 H 125 H Calcium Ionized Calcium Phosphorus Magnesium Total Bilirubin AST ALT Alkaline Phosphatase B-Natriuretic Peptide > 1300 H Total Protein Albumin Globulin Albumin/Globulin Ratio 03/25/18 03/25/18 03/25/18 05:29 05:29 05:29 WBC 5.9 RBC 2.37 L Hgb 7.8 L Hct 23 L MCV 98 H MCH 33 H MCHC 34 RDW 21 H Plt Count 128 L MPV 9.5 Sodium 132 L Potassium 3.5 D Chloride 100 L Carbon Dioxide 30 Anion Gap 2 BUN 18 Creatinine < 0.30 L Est GFR ( Amer) 286.1 Est GFR (Non-Af Amer) 236.5 BUN/Creatinine Ratio 60.0 H Glucose 106 H POC Glucose (mg/dL) Calcium 7.9 L Ionized Calcium 1.11 L Phosphorus 2.8 Magnesium 1.6 L Total Bilirubin 0.60 AST 15 ALT 6 L Alkaline Phosphatase 87 B-Natriuretic Peptide Total Protein 4.5 L Albumin 3.2 Globulin 1.3 L Albumin/Globulin Ratio 2.5 Intake & Output 03/24/18 03/25/18 03/25/18 22:59 06:59 14:59 Intake Total 1172.3 1029.9 Output Total 2295 1522 30 Balance -1122.7 -492.1 -30 Weight 104 lb 0.931 oz Intake: IV Fluids 230.3 388 NS (0.9%) 121 NS to Maintain IV Patency 20 281 albumin 107 sodium phosphate 89.3 IVPB 146 160 ABX - CEFEPIME 55 ABX - FLAGYL 120 105 NS (0.9%) 26 Medicated IV 175 204.9 CC - Dexmedetomidine/ 70 74.4 Precedex CC - Propofol/Diprivan 82 105 CC - Vasopressin/ 23 25.5 Pitressin TPN/PPN 320 Oral 0 Tube Feeding 241 247 Tube Feeding Flush Amount 60 30 Output: EMELIA #1 230 190 EMELIA #2 540 530 [place] 1525 802 30 Abx: cefepime, flagyl, fluconazole CXR: reviewed 03/25 Physical exam: Abd- soft, NTND, geena in place on midline laparotomy incision, serous fluid from EMELIA x 2 A/P: 48 F with multiple medical problems, including chronic ETOH, pancreatitis, malnutrition, presented to hospital after fall with right hip fx, now POD 6 from dx lap, ex lap, C for cecal perforation. - Continue to advance TFs to goal - Continue abx - Appreciate ICU care, patient will be weaned for extubation after period of continued diuresis
[2018-03-25] MEDS: Miconazole TOPICAL CREAM 2%* 30 GM TOPICAL SCH ×2 (09:00→22:44)
[2018-03-25] MEDS: Folic Acid TAB* 1 MG PO SCH (09:04)
[2018-03-25] MEDS: Multivitamins ADULT w/MIN LIQ* 15 ML UDC PO SCH (09:04)
[2018-03-25] MEDS: FLUoxetine CAP* 10 MG PO SCH (09:05)
[2018-03-25] MEDS: Thiamine TAB* 100 MG TAB PO SCH (09:05)
[2018-03-25] MEDS: Sodium Chloride TAB* 1 GM PO SCH (09:05)
[2018-03-25] MEDS: Pantoprazole IV* 40 MG IV SCH (09:06)
[2018-03-25] MEDS: Dexmedetomidine* 400 MCG in NS 0.9% 100 ML* 96 ML IVPB SCH ×2 (09:25→19:37)
[2018-03-25] MEDS: Lidocaine PATCH 5%* 1 PATCH TRANSDERM SCH (09:56)
[2018-03-25] MEDS: Fluconazole 100 MG IVPREMIX(*) 100 MG/50 ML BAG IVPB SCH (10:46)
[2018-03-25] MEDS: Insulin GLARGINE(*) 1 UNITS UNIT SUBCUT SCH (11:03)
--- NOTE | 2018-03-25 13:44 | PN ---
Progress Note - Progress Note Date of Service: 03/25/18 SOAP: Subjective: [] Pt seen at bedside, her family is present. She is intubated Objective: []General: Pt remains intubated RLE: R hip dressing changed, incisions CDI no surrounding erythema. Thigh is soft. Dp2+ Assessment: []s/p R hip gamma nailing 2/[address] Lopez. - Multiple Co-morbidities including rectal CA and bowel perforation Plan: - DVT prophylaxis heparin- per hospitalist - Continue PT/ OT- TTWB RLW -Appreciate medical and ICU management - Nursing to change dressing as needed with gauze and tape, otherwise ortho to remove sutures in coming days. Today is POD 11, due to drainage from incisions the first several days remove sutures closer to day 14 Vital Signs Temp 99.1 F 03/25/18 13:00 Pulse 69 03/25/18 13:00 Resp 16 03/25/18 13:00 BP 88/60 03/24/18 22:48 Pulse Ox 97 03/25/18 13:00 Intake & Output 03/24/18 03/25/18 03/25/18 18:59 06:59 18:59 Intake Total 1973.3 1772.9 1050 Output Total 3520 2857 2140 Balance -1546.7 -1084.1 -1090 Weight 105 lb 2.568 oz 104 lb 0.931 oz Intake: IV Fluids 89.3 529 97 NS (0.9%) 121 97 NS to Maintain IV Patency 301 albumin 107 sodium phosphate 89.3 IVPB 792 306 267 ABX - CEFEPIME 55 57 ABX - FLAGYL 225 100 KCL 203 NS (0.9%) 46 26 antibiotics 202 calcium gluconate 120 60 fluconazole 50 magnesium 50 sodium phosphate 171 Medicated IV 170 379.9 199 CC - Dexmedetomidine/ 67 144.4 63 Precedex CC - Propofol/Diprivan 80 187 115 CC - Vasopressin/ 23 48.5 21 Pitressin TPN/PPN 902 Oral 0 Tube Feeding 20 468 397 Tube Feeding Flush Amount 90 90 Output: EMELIA #1 160 260 90 EMELIA #2 760 690 430 [place] 2600 1907 1620 Laboratory Last Values WBC 5.9 10^3/ul (3.5-10.8) 03/25/18 05:29 RBC 2.37 10^6/ul (4.00-5.40) L 03/25/18 05:29 Hgb 7.8 g/dl (12.0-16.0) L 03/25/18 05:29 Hct 23 % (35-47) L 03/25/18 05:29 MCV 98 fL (80-97) H 03/25/18 05:29 MCH 33 pg (27-31) H 03/25/18 05:29 MCHC 34 g/dl (31-36) 03/25/18 05:29 RDW 21 % (10.5-15) H 03/25/18 05:29 Plt Count 128 10^3/ul (150-450) L 03/25/18 05:29 MPV 9.5 fL (7.4-10.4) 03/25/18 05:29 Neut % (Auto) 87.0 % 03/22/18 03:46 Lymph % (Auto) 6.4 % 03/22/18 03:46 [place] % (Auto) 6.0 % 03/22/18 03:46 Eos % (Auto) 0.2 % 03/22/18 03:46 Baso % (Auto) 0.4 % 03/22/18 03:46 Absolute Neuts (auto) 11.3 10^3/ul (1.5-7.7) H 03/22/18 03:46 Absolute Lymphs (auto) 0.8 10^3/ul (1.0-4.8) L 03/22/18 03:46 Absolute Monos (auto) 0.8 10^3/ul (0-0.8) 03/22/18 03:46 Absolute Eos (auto) 0 10^3/ul (0-0.6) 03/22/18 03:46 Absolute Basos (auto) 0.1 10^3/ul (0-0.2) 03/22/18 03:46 Absolute Nucleated RBC 0 10^3/ul 03/22/18 03:46 Neutrophils % 91 % 03/17/18 06:55 Lymphocytes % 6 % 03/17/18 06:55 Monocytes % 2 % 03/17/18 06:55 Eosinophils % 1 % 03/17/18 06:55 Nucleated RBC % 0.2 03/22/18 03:46 Abs Neuts (Manual) 13.9 10^3/ul (1.5-7.7) H 03/17/18 06:55 Abs Lymphs (Manual) 0.918 10^3/ul (1.0-4.8) L 03/17/18 06:55 Abs Monocytes (Manual) 0.306 10^3/ul (0-0.8) 03/17/18 06:55 Absolute Eos (Manual) 0.153 10^3/ul (0-0.6) 03/17/18 06:55 Normal RBC Morphology Not Reportable 03/17/18 06:55 Polychromasia 1+ 03/17/18 06:55 Anisocytosis 2+ 03/17/18 06:55 Stomatocytes 1+ 03/17/18 06:55 Hem Pathologist Commnt 03/17/18 06:55 INR (Anticoag Therapy) 1.07 (0.77-1.02) H 03/14/18 04:42 APTT 33.0 seconds (26.0-36.3) 03/09/18 18:39 Patient Temperature Not Reportable 03/21/18 02:12 ABG pH 7.50 (7.35-7.45) H 03/22/18 03:46 ABG pH (Temp Correct) Not Reportable 03/21/18 02:12 ABG pCO2 35 mmHg (35-45) 03/22/18 03:46 ABG pCO2 (Temp Corrct Not Reportable 03/21/18 02:12 ABG pO2 105 mmHg (80-100) H 03/22/18 03:46 ABG pO2 (Temp Correct Not Reportable 03/21/18 02:12 ABG HCO3 28.2 mmol/L (19-31) 03/22/18 03:46 ABG O2 Saturation 99.4 % (94.0-98.0) H 03/22/18 03:46 ABG Base Excess 4.2 mmol/L (-2.0-2.0) H 03/22/18 03:46 Respiration Rate Not Reportable 03/21/18 02:12 O2 Delivery Device Bipap 03/21/18 02:12 Ventilator Type Not Reportable 03/21/18 02:12 Vent Mode Not Reportable 03/21/18 02:12 FiO2 60 03/21/18 02:12 Inspiratory Time Not Reportable 03/21/18 02:12 PEEP Not Reportable 03/21/18 02:12 Pressure Support Not Reportable 03/21/18 02:12 Pressure Control Not Reportable 03/21/18 02:12 EPAP 5 03/21/18 02:12 IPAP 10 03/21/18 02:12 BiPAP Not Reportable 03/21/18 02:12 Sodium 132 mmol/L (135-145) L 03/25/18 05:29 Potassium 3.5 mmol/L (3.5-5.0) D 03/25/18 05:29 Chloride 100 mmol/L (101-111) L 03/25/18 05:29 Carbon Dioxide 30 mmol/L (22-32) 03/25/18 05:29 Anion Gap 2 mmol/L (2-11) 03/25/18 05:29 BUN 18 mg/dL (6-24) 03/25/18 05:29 Creatinine < 0.30 mg/dL (0.51-0.95) L 03/25/18 05:29 Est GFR ( Amer) 286.1 (>60) 03/25/18 05:29 Est GFR (Non-Af Amer) 236.5 (>60) 03/25/18 05:29 BUN/Creatinine Ratio 60.0 (8-20) H 03/25/18 05:29 Glucose 106 mg/dL (70-100) H 03/25/18 05:29 POC Glucose (mg/dL) 303 mg/dL (70-100) H 03/25/18 13:08 Lactic Acid 1.4 mmol/L (0.5-2.0) 03/22/18 11:51 Calcium 7.9 mg/dL (8.6-10.3) L 03/25/18 05:29 Ionized Calcium 1.11 mmol/L (1.16-1.32) L 03/25/18 05:29 Phosphorus 2.8 mg/dL (2.5-5.0) 03/25/18 05:29 Magnesium 1.6 mg/dL (1.9-2.7) L 03/25/18 05:29 Iron < 17 ug/dL (50-212) L 03/16/18 06:01 TIBC 105 mcg/dL (250-450) L 03/16/18 06:01 % Saturation 16 % (15-55) 03/16/18 06:01 Unsat Iron Binding < 90 ug/dL 03/16/18 06:01 Transferrin < 75 mg/dL (203-362) L 03/16/18 06:01 Ferritin 290.7 ng/mL (11-307) 03/10/18 06:04 Total Bilirubin 0.60 mg/dL (0.2-1.0) 03/25/18 05:29 Direct Bilirubin 0.10 mg/dL (0.03-0.18) 03/21/18 05:45 Indirect Bilirubin 0.3 mg/dL (0.3-1.0) 03/21/18 05:45 AST 15 U/L (13-39) 03/25/18 05:29 ALT 6 U/L (7-52) L 03/25/18 05:29 Alkaline Phosphatase 87 U/L (34-104) 03/25/18 05:29 Ammonia 88 mcmol/L (16-53) H 03/25/18 13:04 Troponin I 0.01 ng/mL (<0.04) 03/09/18 18:39 C-Reactive Protein 194.46 mg/L (<8.01) H 03/20/18 06:05 B-Natriuretic Peptide > 1300 pg/mL (<=100) H 03/25/18 05:29 Total Protein 4.5 g/dL (6.4-8.9) L 03/25/18 05:29 Albumin 3.2 g/dL (3.2-5.2) 03/25/18 05:29 Globulin 1.3 g/dL (2-4) L 03/25/18 05:29 Albumin/Globulin Ratio 2.5 (1-3) 03/25/18 05:29 Prealbumin 3 mg/dL (18-38) L 03/21/18 05:45 Triglycerides 214 mg/dL 03/24/18 05:02 Lipase < 10 U/L (11.0-82.0) L 03/19/18 13:22 Vitamin B12 > 1450 pg/mL (180-914) H 03/09/18 18:39 Procalcitonin 0.67 ng/mL (<=0.15) H 03/22/18 06:10 TSH 1.87 mcIU/mL (0.34-5.60) 03/09/18 18:39 Cortisol 10.40 mcg/dL 03/22/18 03:46 Urine Color [place] 03/17/18 13:10 Urine Appearance Cloudy 03/17/18 13:10 Urine pH 5.0 (5-9) 03/17/18 13:10 Ur Specific [place] 1.029 (1.010-1.030) 03/17/18 13:10 Urine Protein Negative (Negative) 03/17/18 13:10 Urine Ketones Trace (Negative) A 03/17/18 13:10 Urine Blood 3+ (Negative) A 03/17/18 13:10 Urine Nitrate Positive (Negative) A 03/17/18 13:10 Urine Bilirubin Negative (Negative) 03/17/18 13:10 Urine Urobilinogen Negative (Negative) 03/17/18 13:10 Ur Leukocyte Esterase 2+ (Negative) A 03/17/18 13:10 Urine WBC (Auto) 3+(>20/hpf) (Absent) A 03/17/18 13:10 Urine RBC (Auto) 3+(>10/hpf) (Absent) A 03/17/18 13:10 Ur Transition Epith Cell Present (Absent) A 03/11/18 00:06 Urine Bacteria Absent (Absent) 03/17/18 13:10 Urine Yeast Present (Absent) A 03/17/18 13:10 Urine Glucose 1+(50 mg/dl) (Negative) A 03/17/18 13:10 Serum Alcohol < 10 mg/dL (<10) 03/09/18 18:39 Zinc 0.78 mcg/mL (0.66-1.10) 03/13/18 18:47 Blood Type B Positive 03/19/18 06:13 Antibody Screen Negative 03/19/18 06:13 Crossmatch See Detail 03/19/18 06:13
[2018-03-25 14:20] LABS: Anion Gap 2 mmol/L (2-11); Blood Urea Nitrogen 16 mg/dL (6-24); CO2 Carbon Dioxide 31 mmol/L (22-32); Calcium 7.8 mg/dL (8.6-10.3); Chloride 99 mmol/L (101-111); EGFR African American 286.1 (>60); EGFR Non-African American 236.5 (>60); Glucose 132 mg/dL (70-100); Potassium 3.5 mmol/L (3.5-5.0); Sodium 132 mmol/L (135-145)
[2018-03-25] MEDS: Vasopressin* 100 UNITS in D5W 250 ML BAG* 245 ML IVPB SCH (17:13)
[2018-03-25] MEDS: Melatonin 3 MG TAB PO SCH (22:43)
[2018-03-25] MEDS: Lidocaine Patch REMOVE* 1 NOTE MISC SCH (22:45)
[2018-03-26] MEDS: Cefepime 2 GM in Dextrose(*) 2 GM/50 ML BAG IV SCH (01:02)
[2018-03-26] MEDS: Chlorhexidine MOUTHWASH 0.12%* 15 ML UDC TOPICAL SCH ×6 (01:02→21:28)
[2018-03-26] MEDS: Propofol* 100 ML IV SCH ×2 (01:02→06:30)
[2018-03-26] MEDS: HYDROmorphone INJ1* 1 MG/ML SYRINGE IV SLOW PU PRN ×2 (01:33→04:11)
[2018-03-26] MEDS: Furosemide IV* 10 MG/ML VIAL (40 MG) IV SCH ×2 (01:33→09:55)
[2018-03-26] MEDS: Insulin LISPRO* 1 UNITS UNIT SUBCUT SCH ×6 (01:34→21:28)
[2018-03-26] MEDS: metroNIDAZOLE IV 500 MG/100ML* 500 MG/100 ML BAG IVPB SCH (03:39)
[2018-03-26] MEDS: LORazepam INJ* 2 MG/ML 1 ML VIAL IV PUSH PRN ×4 (04:11→21:35)
[2018-03-26 05:31] LABS: Hematocrit 23 % (35-47); Hemoglobin 7.7 g/dl (12.0-16.0); Mean Corpuscular HGB Conc 34 g/dl (31-36); Mean Corpuscular Hemoglobin 33 pg (27-31); Mean Corpuscular Volume 99 fL (80-97); Mean Platelet Volume 9.6 fL (7.4-10.4); Platelet Count 136 10^3/ul (150-450); Red Blood Count 2.33 10^6/ul (4.00-5.40); Red Cell Distribution Width 20 % (10.5-15); White Blood Count 6.4 10^3/ul (3.5-10.8)
[2018-03-26 05:42] LABS: ALT 7 U/L (7-52); AST 15 U/L (13-39); Albumin 2.8 g/dL (3.2-5.2); Albumin/Globulin Ratio 1.8 (1-3); Alkaline Phosphatase 107 U/L (34-104); Anion Gap 3 mmol/L (2-11); Blood Urea Nitrogen 17 mg/dL (6-24); CO2 Carbon Dioxide 34 mmol/L (22-32); Calcium 7.8 mg/dL (8.6-10.3); Chloride 94 mmol/L (101-111); EGFR African American 286.1 (>60); EGFR Non-African American 236.5 (>60); Globulin 1.6 g/dL (2-4); Glucose 107 mg/dL (70-100); Magnesium 1.6 mg/dL (1.9-2.7); Phosphorus 2.9 mg/dL (2.5-5.0); Potassium 3.6 mmol/L (3.5-5.0); Sodium 131 mmol/L (135-145); Total Protein 4.4 g/dL (6.4-8.9)
[2018-03-26] MEDS: Heparin VIAL(*) 5000 UNITS/ML VIAL (FIVE THOUSAND) SUBCUT SCH ×3 (05:43→21:30)
[2018-03-26 05:50] LABS: BNP > 1300 pg/mL (<=100)
[2018-03-26] MEDS: Dexmedetomidine* 400 MCG in NS 0.9% 100 ML* 96 ML IVPB SCH ×2 (06:31→17:24)
[2018-03-26] MEDS: fentaNYL Patch Check Q Shift 1 NOTE SCH (07:38)
[2018-03-26] MEDS ORDERED: Magnesium Sulfate IV* 3 GM in NS 0.9% 100 ML* 100 ML IVPB ONE (08:06)
--- NOTE | 2018-03-26 08:24 | PN ---
Date of Service: 03/26/18 Critical Care Services: 48 yo F presented to [facility] ED on 03/09/2018 after a fall two days prior. Since the fall she was unable to ambulate per family, also bilateral lower extremity edema and generalized weakness. On workup found to have a right intertrochanteric fracture. US BLE negative for DVT. CT brain negative for acute pathology. Admitted to the medical service. 03/10: Seen by orthopedics service, who recommended proceeding with ORIF when medically cleared. Found on workup to have new cirrhosis with decreased synthetic function and ammonia of 100, as well as failure to thrive. Options for goals of care, including palliative focused, discussed with family. 03/11: started on Rifaximin in addition to lactulose for elevated ammonia. ORIF postponed due to bacteremia; started on cefazolin. 03/13: repeat blood cultures negative. Cleared for surgery but high risk. 03/14: ORIF right femur fracture. 03/16: developed tachycardia. started on gentle fluid resuscitation. Found to have UTI with E.coli and Pseudomonas. Continued on Cefazolin 03/17: developed hypoxia, requiring 15L facemask. CTA done earlier showing bilateral pleural effusion. Given Lasix x 1. Transferred to ICU for vapotherm. 03/18: ID consulted. ABx changed to Zosyn for 7 day course. 03/19: Developed worsened abdominal pain. CT abdomen with free air. General surgery consulted and went to OR for exlap. Found to have cecal perforation; right hemicolectomy with primary anastamosis performed. Noted to have gross peritonitis with pus in gutters. Returned to ICU post procedure, on ventilator. 03/20: Successfully extubated. 03/21: passing gas. AFebrile. on PPN. ABx changed to Cefepime and Flagyl for combined abdominal and vaginal/vulvar coverage. Pain service consulted. 03/22: overnight pt developed increased hypoxia. intubated. requiring PEEP 10a nd FiO2 100% with sats only 88%. Tachycardic to 130s. CTA obtained; negative for PE but demonstrates bilateral patchy infiltrates suggestive of pneumonia vs ARDS. 03/23: weaned off Levophed. NG placed. Scheduled diuresis started. 03/24: TF started. 03/26: failed sbt, becoming febrile. Vital Signs: Temp Pulse Resp BP SpO2 FiO2 100.6 F 83 18 101/76 97 40 03/26/18 07:00 03/26/18 07:00 03/26/18 05:57 03/25/18 14:29 03/26/18 07:00 03/26 08:10 Physical Exam: Gen - chronically ill Heent - ngt, ett neck - no jvd cv - s1/s2, no murmur lungs - dec bs at bases abd - soft, giorgi x 2, incision CDI ext - no cce neuro - awake, following commands Fluid Balance (Past 24 Hours): I= O= Net Intake & Output 03/24/18 03/25/18 03/26/18 03/27/18 06:59 06:59 06:59 06:59 Intake Total 4050.5 3746.2 3016.0 Output Total 4710 6377 4990 Balance -659.5 -2630.8 -1974.0 Weight 47.174 kg 47.2 kg 47.568 kg Intake: IV Fluids 1330 618.3 550 ABX - CEFEPIME 67 KCL 117 NS (0.9%) 546 121 550 NS to Maintain IV Patency 301 albumin 600 107 sodium phosphate 89.3 IVPB 402 1098 587 ABX - CEFEPIME 55 55 112 ABX - FLAGYL 100 225 300 KCL 203 NS (0.9%) 72 antibiotics 202 calcium gluconate 60 120 125 fluconazole 50 50 magnesium 50 50 sodium phosphate 87 171 Medicated IV 431.5 549.9 574.0 CC - Dexmedetomidine/ 63 211.4 208.3 Precedex CC - Propofol/Diprivan 255 267 294.3 CC - Vasopressin/ 113.5 71.5 71.4 Pitressin TPN/PPN 1887 902 Oral 0 Tube Feeding 488 1155 Tube Feeding Flush Amount 90 150 Output: J Tube 20 T Tube 40 GIORGI #1 60 420 250 GIORGI #2 1450 1450 870 [place] 3140 4507 3870 Labs: Laboratory Results - last 24 hr 03/25/18 03/25/18 03/25/18 09:23 13:04 13:08 WBC RBC Hgb Hct MCV MCH MCHC RDW Plt Count MPV Sodium Potassium Chloride Carbon Dioxide Anion Gap BUN Creatinine Est GFR ( Amer) Est GFR (Non-Af Amer) BUN/Creatinine Ratio Glucose POC Glucose (mg/dL) 108 H 303 H Calcium Ionized Calcium Phosphorus Magnesium Total Bilirubin AST ALT Alkaline Phosphatase Ammonia 88 H B-Natriuretic Peptide Total Protein Albumin Globulin Albumin/Globulin Ratio 03/25/18 03/25/18 03/25/18 13:45 13:45 16:36 WBC RBC Hgb Hct MCV MCH MCHC RDW Plt Count MPV Sodium 132 L Potassium 3.5 Chloride 99 L Carbon Dioxide 31 Anion Gap 2 BUN 16 Creatinine < 0.30 L Est GFR ( Amer) 286.1 Est GFR (Non-Af Amer) 236.5 BUN/Creatinine Ratio 53.0 H Glucose 132 H POC Glucose (mg/dL) 78 Calcium 7.8 L Ionized Calcium 1.12 L Phosphorus Magnesium 2.0 Total Bilirubin AST ALT Alkaline Phosphatase Ammonia B-Natriuretic Peptide Total Protein Albumin Globulin Albumin/Globulin Ratio 03/25/18 03/26/18 03/26/18 21:02 01:18 05:14 WBC RBC Hgb Hct MCV MCH MCHC RDW Plt Count MPV Sodium Potassium Chloride Carbon Dioxide Anion Gap BUN Creatinine Est GFR ( Amer) Est GFR (Non-Af Amer) BUN/Creatinine Ratio Glucose POC Glucose (mg/dL) 117 H 178 H Calcium Ionized Calcium Phosphorus Magnesium Total Bilirubin AST ALT Alkaline Phosphatase Ammonia 56 H B-Natriuretic Peptide > 1300 H Total Protein Albumin Globulin Albumin/Globulin Ratio 03/26/18 03/26/18 03/26/18 05:14 05:14 05:14 WBC 6.4 RBC 2.33 L Hgb 7.7 L Hct 23 L MCV 99 H MCH 33 H MCHC 34 RDW 20 H Plt Count 136 L MPV 9.6 Sodium 131 L Potassium 3.6 Chloride 94 L Carbon Dioxide 34 H Anion Gap 3 BUN 17 Creatinine < 0.30 L Est GFR ( Amer) 286.1 Est GFR (Non-Af Amer) 236.5 BUN/Creatinine Ratio 56.0 H Glucose 107 H POC Glucose (mg/dL) Calcium 7.8 L Ionized Calcium 1.06 L Phosphorus 2.9 Magnesium 1.6 L Total Bilirubin 0.50 AST 15 ALT 7 Alkaline Phosphatase 107 H Ammonia B-Natriuretic Peptide Total Protein 4.4 L Albumin 2.8 L Globulin 1.6 L Albumin/Globulin Ratio 1.8 Studies: 03/26 CXR - left basilar atelectasis vs consolidation with small pleural effusion 03/25 CXR - increased vascularity bilaterally 03/23 CXR - hyperinflation. bibasilar atelectasis vs consolidation. small left pleural effusion 03/22 CXR - patchy airspace disease of left lung base. hyperinflation. no pneumothorax. 03/21 CTA chest - no PE. moderate bilateral pleural effusions with adjaced atelectasis. patchy ground glass opacities throughout both lungs. Nondisplaced fractures of left posterior 9-10th ribs. ? midsternal fracture, mildly displaced 03/21 CXR - LLL consolidation with patchy airspace disease throughout. small bilateral pleural effusions. 03/21 CXR - CHF with interval progression 03/20 CXR - CHF with interval improvement 03/19 CXR - extensive bilateral infiltrates and small bilateral effusions, unchanged 03/19 CT abd/pelvis - large amount of free intraperitoneal air, moderate ascites 03/17 CXR - pulmonary intersitital and alveolar edema with small bilateral pleural effusions and bibasilar atelectasis vs consolidation 03/16 CTA chest - No PE. large bilateral pleural effusions with compressive atelectasis. interstitial edema c/w CHF. small 5mm nodule in RML wich is noncalcified and unchanged from 12/17/201703/10 CT abd/pelvis - bilateral pleural effusions, ascites, fatty infiltration of liver, atherosclerosis, right prox femur fracture. No discrete fractures of left 9th and 10th ribs, no lymphadenopathy or other fundings ot suggest metastatic disease 03/09 US liver - 10.1 cm complex cystic lesion deep to pancreas, additinoal 2 cm pancreatic hypodensity. Complex fluid or edema lateral to right kidney. 03/09 US BLE - No DVT 03/09 XR pelvis - displaced angulated intertrochanteric fx of right femur 03/09 CT brain - no acute pathology Impression: 48F admitted after fall, right femur fracture s/p orif, post-op cecal perforation s/p right hemicolectomy. Now with hypoxic resporatory failure. Sepsis 2/2 peritonititis/UTI. Volume overload. Plan: Neuro - awake and following commands - weaning sedation for possible extubation - pain control CV - hypotension - bp improved - now off pressors - TTE with normal EF Pulm - hypoxic respiratory failure - 2/2 pna/ards - failed sbt this am - nebs - c/w diuresis ID - sepsis 2/2 peritonitis/uti - pseudomonas/e.coli/citrobacter/jannet from cultures - now on cefepime flagyl - temp 100.6 this am - consolidation vs atelectasis on cxr - wbc normal - will discuss with ID gi - cecal perforation, cirrhosis?, h/o colorectal cancer, pancreatic cyst 1) cecal perforation - s/p right hemicolectomy 2) cirrhosis - ammonia improving without lactulose/rifaximin - inr improving with nutrition 3) h/o colorectal cancer - has 5mm nodule in the RML on CT - f/u outpatient 4) h/o pancreatitis - creon once able to take po 5) Nutrition - c/w thiamine/folate/mvi - c/w tube feeds renal - volume overload, hypokalemia, hypopagnesemia, hypophosphatemia - diuresing well - replete lytes - strict i/o heme - anemia - hgb drifting down - ngt tube suctioned without blood - no obvious source of bleeding - repeat cbc at 2pm - keep hgb > 7 endo - fs ok - c/w sliding scale MSK - hip fracture - s/p orif lines - LUE PICC, Borrero, a-line ppx - ppi/hsq Full Code Critical Care Time: 65 mins
[2018-03-26] MEDS ORDERED: Potassium Phosphate IV* 15 MMOLE in NS 0.9% 250 ML* 250 ML IVPB ONE (08:45)
[2018-03-26] MEDS: Pantoprazole IV* 40 MG IV SCH (09:52)
[2018-03-26] MEDS: KCL 20 MEQ/100 ML IVPREMIX* 20 MEQ/100 ML BAG IV SCH ×2 (09:56→12:30)
[2018-03-26] MEDS: Multivitamins ADULT w/MIN LIQ* 15 ML UDC PO SCH (09:57)
[2018-03-26] MEDS: Thiamine TAB* 100 MG TAB PO SCH (09:57)
[2018-03-26] MEDS: Folic Acid TAB* 1 MG PO SCH (09:57)
[2018-03-26] MEDS: FLUoxetine CAP* 10 MG PO SCH (09:58)
--- NOTE | 2018-03-26 10:02 | PN ---
Progress Note - Progress Note Date of Service: 03/26/18 Note: Surgery Progress Note S: Patient overnight had a small BM and one again this morning. She remains on very low dose vasopressin with the intent of dc'ing it this morning. Spontaneous breathing trial early this AM was unsuccessful. She is currently alert and responsive and still intubated. She had low grade fevers overnight. Hct has been downtrending and TF's held to see if she has UGI bleeding. O: Vital Signs - 24 hr 03/25/18 03/25/18 03/25/18 10:00 11:00 12:00 Temperature 99.1 F 99.0 F 99.0 F Pulse Rate 69 70 67 Respiratory 18 19 18 Rate Blood Pressure (mmHg) O2 Sat by Pulse 96 97 97 Oximetry 03/25/18 03/25/18 03/25/18 12:33 13:00 13:58 Temperature 99.1 F Pulse Rate 69 Respiratory 19 16 19 Rate Blood Pressure (mmHg) O2 Sat by Pulse 97 Oximetry 03/25/18 03/25/18 03/25/18 14:00 14:10 14:14 Temperature 99.3 F 99.3 F 99.1 F Pulse Rate 75 78 77 Respiratory Rate Blood Pressure 78/52 78/56 (mmHg) O2 Sat by Pulse 98 97 98 Oximetry 03/25/18 03/25/18 03/25/18 14:29 14:33 15:00 Temperature 99.1 F 99.3 F Pulse Rate 72 73 Respiratory 20 17 Rate Blood Pressure 101/76 (mmHg) O2 Sat by Pulse 96 97 Oximetry 03/25/18 03/25/18 03/25/18 16:00 16:29 16:30 Temperature 99.5 F Pulse Rate 77 Respiratory 14 18 18 Rate Blood Pressure (mmHg) O2 Sat by Pulse 96 Oximetry 03/25/18 03/25/18 03/25/18 17:00 18:00 19:00 Temperature 99.5 F 99.5 F 99.7 F Pulse Rate 70 68 70 Respiratory 19 18 Rate Blood Pressure (mmHg) O2 Sat by Pulse 96 97 98 Oximetry 03/25/18 03/25/18 03/25/18 20:00 21:00 22:00 Temperature 99.9 F 99.9 F 100.0 F Pulse Rate 72 71 73 Respiratory 17 Rate Blood Pressure (mmHg) O2 Sat by Pulse 97 97 96 Oximetry 03/25/18 03/25/18 03/25/18 22:30 23:00 23:32 Temperature 100.0 F 100.2 F Pulse Rate 75 77 Respiratory 18 17 Rate Blood Pressure (mmHg) O2 Sat by Pulse 96 95 Oximetry 03/26/18 03/26/18 03/26/18 00:00 01:00 01:33 Temperature 100.4 F 100.6 F Pulse Rate 77 82 Respiratory 16 17 22 Rate Blood Pressure (mmHg) O2 Sat by Pulse 95 96 Oximetry 03/26/18 03/26/18 03/26/18 02:00 02:52 03:00 Temperature 100.6 F 100.6 F Pulse Rate 75 85 Respiratory 20 18 Rate Blood Pressure (mmHg) O2 Sat by Pulse 95 95 Oximetry 03/26/18 03/26/18 03/26/18 03:42 04:00 04:11 Temperature 100.6 F Pulse Rate 88 Respiratory 17 18 Rate Blood Pressure (mmHg) O2 Sat by Pulse 95 Oximetry 03/26/18 03/26/18 03/26/18 05:00 05:32 05:57 Temperature 100.6 F Pulse Rate 74 Respiratory 16 18 Rate Blood Pressure (mmHg) O2 Sat by Pulse 96 Oximetry 03/26/18 03/26/18 06:00 07:00 Temperature 100.6 F 100.6 F Pulse Rate 75 83 Respiratory Rate Blood Pressure (mmHg) O2 Sat by Pulse 96 97 Oximetry Laboratory Results - last 24 hr 03/25/18 03/25/18 03/25/18 09:23 13:04 13:08 WBC RBC Hgb Hct MCV MCH MCHC RDW Plt Count MPV Sodium Potassium Chloride Carbon Dioxide Anion Gap BUN Creatinine Est GFR ( Amer) Est GFR (Non-Af Amer) BUN/Creatinine Ratio Glucose POC Glucose (mg/dL) 108 H 303 H Calcium Ionized Calcium Phosphorus Magnesium Total Bilirubin AST ALT Alkaline Phosphatase Ammonia 88 H B-Natriuretic Peptide Total Protein Albumin Globulin Albumin/Globulin Ratio 03/25/18 03/25/18 03/25/18 13:45 13:45 16:36 WBC RBC Hgb Hct MCV MCH MCHC RDW Plt Count MPV Sodium 132 L Potassium 3.5 Chloride 99 L Carbon Dioxide 31 Anion Gap 2 BUN 16 Creatinine < 0.30 L Est GFR ( Amer) 286.1 Est GFR (Non-Af Amer) 236.5 BUN/Creatinine Ratio 53.0 H Glucose 132 H POC Glucose (mg/dL) 78 Calcium 7.8 L Ionized Calcium 1.12 L Phosphorus Magnesium 2.0 Total Bilirubin AST ALT Alkaline Phosphatase Ammonia B-Natriuretic Peptide Total Protein Albumin Globulin Albumin/Globulin Ratio 03/25/18 03/26/18 03/26/18 21:02 01:18 05:14 WBC RBC Hgb Hct MCV MCH MCHC RDW Plt Count MPV Sodium Potassium Chloride Carbon Dioxide Anion Gap BUN Creatinine Est GFR ( Amer) Est GFR (Non-Af Amer) BUN/Creatinine Ratio Glucose POC Glucose (mg/dL) 117 H 178 H Calcium Ionized Calcium Phosphorus Magnesium Total Bilirubin AST ALT Alkaline Phosphatase Ammonia 56 H B-Natriuretic Peptide > 1300 H Total Protein Albumin Globulin Albumin/Globulin Ratio 03/26/18 03/26/18 03/26/18 05:14 05:14 05:14 WBC 6.4 RBC 2.33 L Hgb 7.7 L Hct 23 L MCV 99 H MCH 33 H MCHC 34 RDW 20 H Plt Count 136 L MPV 9.6 Sodium 131 L Potassium 3.6 Chloride 94 L Carbon Dioxide 34 H Anion Gap 3 BUN 17 Creatinine < 0.30 L Est GFR ( Amer) 286.1 Est GFR (Non-Af Amer) 236.5 BUN/Creatinine Ratio 56.0 H Glucose 107 H POC Glucose (mg/dL) Calcium 7.8 L Ionized Calcium 1.06 L Phosphorus 2.9 Magnesium 1.6 L Total Bilirubin 0.50 AST 15 ALT 7 Alkaline Phosphatase 107 H Ammonia B-Natriuretic Peptide Total Protein 4.4 L Albumin 2.8 L Globulin 1.6 L Albumin/Globulin Ratio 1.8 03/26/18 09:15 WBC RBC Hgb Hct MCV MCH MCHC RDW Plt Count MPV Sodium Potassium Chloride Carbon Dioxide Anion Gap BUN Creatinine Est GFR ( Amer) Est GFR (Non-Af Amer) BUN/Creatinine Ratio Glucose POC Glucose (mg/dL) 147 H Calcium Ionized Calcium Phosphorus Magnesium Total Bilirubin AST ALT Alkaline Phosphatase Ammonia B-Natriuretic Peptide Total Protein Albumin Globulin Albumin/Globulin Ratio Intake & Output 03/25/18 03/26/18 03/26/18 22:59 06:59 14:59 Intake Total 1009.6 956.4 Output Total 1465 1260 Balance -455.4 -303.6 Weight 104 lb 13.91 oz Intake: IV Fluids 243 210 NS (0.9%) 243 210 IVPB 165 155 ABX - CEFEPIME 55 ABX - FLAGYL 100 100 calcium gluconate 65 Medicated IV 196.6 178.4 CC - Dexmedetomidine/ 76.9 68.4 Precedex CC - Propofol/Diprivan 92.6 86.7 CC - Vasopressin/ 27.1 23.3 Pitressin Tube Feeding 375 383 Tube Feeding Flush Amount 30 30 Output: EMELIA #1 80 60 EMELIA #2 200 170 [place] 1185 1030 Abx: cefepime, flagyl, fluconazole Imaging: CXR reviewed today 03/26 Physical exam: Abd- soft, midline laparotomy incision c/d/i, EMELIA x 2 with serous fluid A/P: 48 F with chronic ETOH, pain, pancreatitis, right hip fracture, POD 7 from dx lap, ex lap, RHC for cecal perforation, with acute respiratory failure and difficulty weaning from ventilator. - Continue abx - Continue tube feeds as tolerated - Plan to wean for extubation per ICU team
[2018-03-26] MEDS ORDERED: Piperacillin/Tazobac ADVAN(*) 3.375 GM in NS 0.9% 100 ML* 100 ML IVPB ONE (10:06)
[2018-03-26] MEDS: Sodium Chloride TAB* 1 GM PO SCH (10:28)
[2018-03-26 10:59] LABS: INR 1.32 (0.77-1.02)
[2018-03-26] MEDS ORDERED: Zosyn per Pharmacy* NOTE FOLLOW UP SCH (11:00)
[2018-03-26] MEDS: Miconazole TOPICAL CREAM 2%* 30 GM TOPICAL SCH ×2 (11:00→21:29)
[2018-03-26] MEDS ORDERED: Lactated Ringers 1000 ML Bag* 1,000 ML IV SCH (11:00)
[2018-03-26] MEDS ORDERED: Norepinephrine 16MCG/ML IVPRE* 4,000 MCG/250 ML BAG IV SCH (11:00)
[2018-03-26] MEDS: Clotrimazole 1% CREAM* 45 GM TOPICAL SCH ×2 (11:00→21:29)
[2018-03-26] MEDS: Fluconazole 100 MG IVPREMIX(*) 100 MG/50 ML BAG IVPB SCH (11:49)
[2018-03-26] MEDS: fentaNYL INFUSION 50 MCG/ML* 2,500 MCG/50 ML BAG IV SCH (12:53)
[2018-03-26 13:18] LABS: Hematocrit 26 % (35-47); Hemoglobin 8.7 g/dl (12.0-16.0); Mean Corpuscular HGB Conc 34 g/dl (31-36); Mean Corpuscular Hemoglobin 33 pg (27-31); Mean Corpuscular Volume 98 fL (80-97); Mean Platelet Volume 9.5 fL (7.4-10.4); Platelet Count 165 10^3/ul (150-450); Red Blood Count 2.63 10^6/ul (4.00-5.40); Red Cell Distribution Width 20 % (10.5-15)
[2018-03-26] MEDS: fentaNYL PATCH 50 MCG/HR TRANSDERM SCH (13:44)
[2018-03-26 13:48] LABS: ABS Basophils 0.1 10^3/ul (0-0.2); ABS Eosinophils 0 10^3/ul (0-0.6); ABS Lymphocytes 1.2 10^3/ul (1.0-4.8); ABS Monocytes 0.9 10^3/ul (0-0.8); ABS Neutrophils 8.7 10^3/ul (1.5-7.7); ABS Nucleated RBC 0 10^3/ul; Eosinophil % 0.3 %; Nucleated Red Blood Cells % 0
[2018-03-26] MEDS: ZOSYN 3.375 GM Q8H per EXTENDED INFUSION IVPB SCH ×2 (16:14)
[2018-03-27] MEDS: ZOSYN 3.375 GM Q8H per EXTENDED INFUSION IVPB SCH ×6 (00:10→17:01)
[2018-03-27] MEDS: LORazepam INJ* 2 MG/ML 1 ML VIAL IV PUSH PRN (00:38)
[2018-03-27] MEDS: Dexmedetomidine* 400 MCG in NS 0.9% 100 ML* 96 ML IVPB SCH ×2 (01:22→05:56)
[2018-03-27] MEDS: Insulin LISPRO* 1 UNITS UNIT SUBCUT SCH ×2 (01:35→05:56)
[2018-03-27 05:45] LABS: ALT 8 U/L (7-52); AST 15 U/L (13-39); Albumin 2.6 g/dL (3.2-5.2); Albumin/Globulin Ratio 1.3 (1-3); Alkaline Phosphatase 127 U/L (34-104); Anion Gap 3 mmol/L (2-11); Blood Urea Nitrogen 15 mg/dL (6-24); CO2 Carbon Dioxide 31 mmol/L (22-32); Calcium 7.9 mg/dL (8.6-10.3); Chloride 101 mmol/L (101-111); EGFR African American 286.1 (>60); EGFR Non-African American 236.5 (>60); Glucose 134 mg/dL (70-100); Magnesium 2.2 mg/dL (1.9-2.7); Phosphorus 2.4 mg/dL (2.5-5.0); Potassium 3.9 mmol/L (3.5-5.0); Sodium 135 mmol/L (135-145); Total Protein 4.6 g/dL (6.4-8.9)
[2018-03-27] MEDS: Chlorhexidine MOUTHWASH 0.12%* 15 ML UDC TOPICAL SCH ×3 (06:14→09:40)
[2018-03-27] MEDS: Heparin VIAL(*) 5000 UNITS/ML VIAL (FIVE THOUSAND) SUBCUT SCH ×2 (06:14→14:12)
--- NOTE | 2018-03-27 07:52 | PN ---
Date of Service: 03/27/18 Critical Care Services: 48 yo F presented to [place] ED on 03/09/2018 after a fall two days prior. Since the fall she was unable to ambulate per family, also bilateral lower extremity edema and generalized weakness. On workup found to have a right intertrochanteric fracture. US BLE negative for DVT. CT brain negative for acute pathology. Admitted to the medical service. 03/10: Seen by orthopedics service, who recommended proceeding with ORIF when medically cleared. Found on workup to have new cirrhosis with decreased synthetic function and ammonia of 100, as well as failure to thrive. Options for goals of care, including palliative focused, discussed with family. 03/11: started on Rifaximin in addition to lactulose for elevated ammonia. ORIF postponed due to bacteremia; started on cefazolin. 03/13: repeat blood cultures negative. Cleared for surgery but high risk. 03/14: ORIF right femur fracture. 03/16: developed tachycardia. started on gentle fluid resuscitation. Found to have UTI with E.coli and Pseudomonas. Continued on Cefazolin 03/17: developed hypoxia, requiring 15L facemask. CTA done earlier showing bilateral pleural effusion. Given Lasix x 1. Transferred to ICU for vapotherm. 03/18: ID consulted. ABx changed to Zosyn for 7 day course. 03/19: Developed worsened abdominal pain. CT abdomen with free air. General surgery consulted and went to OR for exlap. Found to have cecal perforation; right hemicolectomy with primary anastamosis performed. Noted to have gross peritonitis with pus in gutters. Returned to ICU post procedure, on ventilator. 03/20: Successfully extubated. 03/21: passing gas. AFebrile. on PPN. ABx changed to Cefepime and Flagyl for combined abdominal and vaginal/vulvar coverage. Pain service consulted. 03/22: overnight pt developed increased hypoxia. intubated. requiring PEEP 10a nd FiO2 100% with sats only 88%. Tachycardic to 130s. CTA obtained; negative for PE but demonstrates bilateral patchy infiltrates suggestive of pneumonia vs ARDS. 03/23: weaned off Levophed. NG placed. Scheduled diuresis started. 03/24: TF started. 03/26: failed sbt, becoming febrile. 03/27: abx changed back to zosyn. sedation changed to fentanyl/ativan. doing well on sbt. plan to extuhbate today. Vital Signs: Temp Pulse Resp BP SpO2 FiO2 99.3 F 112 24 96/66 94 40 03/27/18 07:00 03/27/18 07:33 03/27/18 07:33 03/26/18 11:40 03/27/18 07:33 03/27 07:34 Physical Exam: Gen - chronically ill Heent - ngt, ett neck - no jvd cv - s1/s2, no murmur lungs - dec bs at bases abd - soft, giorgi x 2, incision CDI ext - no cce neuro - awake, following commands Fluid Balance (Past 24 Hours): I= O= Net Intake & Output 03/25/18 03/26/18 03/27/18 03/28/18 06:59 06:59 06:59 06:59 Intake Total 3746.2 3016.0 2777 30 Output Total 6377 4990 3097 Balance -2630.8 -1974.0 -320 30 Weight 47.2 kg 47.568 kg 49 kg Intake: IV Fluids 618.3 550 1255 LR 1000 NS (0.9%) 121 550 255 NS to Maintain IV Patency 301 albumin 107 sodium phosphate 89.3 IVPB 1098 587 647 ABX - CEFEPIME 55 112 ABX - FLAGYL 225 300 KCL 203 NS (0.9%) 72 647 antibiotics 202 calcium gluconate 120 125 fluconazole 50 magnesium 50 sodium phosphate 171 Medicated IV 549.9 574.0 344 CC - Dexmedetomidine/ 211.4 208.3 110 Precedex CC - Norepinephrine/ 134 Levophed CC - Propofol/Diprivan 267 294.3 93 CC - Vasopressin/ 71.5 71.4 7 Pitressin IV Narcotic Infusion 30 Fentanyl 30 TPN/PPN 902 Oral 0 0 Tube Feeding 488 1155 441 Tube Feeding Flush Amount 90 150 90 Output: GIORGI #1 420 250 150 GIORGI #2 1450 870 250 Urine 20 [place] 4507 3870 2677 Labs: Laboratory Results - last 24 hr 03/26/18 03/26/18 03/26/18 09:15 10:35 13:05 WBC 11.0 H RBC 2.63 L Hgb 8.7 L Hct 26 L MCV 98 H MCH 33 H MCHC 34 RDW 20 H Plt Count 165 MPV 9.5 Neut % (Auto) 79.6 Lymph % (Auto) 11.0 [place] % (Auto) 8.0 Eos % (Auto) 0.3 Baso % (Auto) 1.1 Absolute Neuts (auto) 8.7 H Absolute Lymphs (auto) 1.2 Absolute Monos (auto) 0.9 H Absolute Eos (auto) 0 Absolute Basos (auto) 0.1 Absolute Nucleated RBC 0 Nucleated RBC % 0 INR (Anticoag Therapy) 1.32 H Sodium Potassium Chloride Carbon Dioxide Anion Gap BUN Creatinine Est GFR ( Amer) Est GFR (Non-Af Amer) BUN/Creatinine Ratio Glucose POC Glucose (mg/dL) 147 H Calcium Phosphorus Magnesium Total Bilirubin AST ALT Alkaline Phosphatase Ammonia Total Protein Albumin Globulin Albumin/Globulin Ratio 03/26/18 03/26/18 03/27/18 17:32 21:19 01:35 WBC RBC Hgb Hct MCV MCH MCHC RDW Plt Count MPV Neut % (Auto) Lymph % (Auto) [place] % (Auto) Eos % (Auto) Baso % (Auto) Absolute Neuts (auto) Absolute Lymphs (auto) Absolute Monos (auto) Absolute Eos (auto) Absolute Basos (auto) Absolute Nucleated RBC Nucleated RBC % INR (Anticoag Therapy) Sodium Potassium Chloride Carbon Dioxide Anion Gap BUN Creatinine Est GFR ( Amer) Est GFR (Non-Af Amer) BUN/Creatinine Ratio Glucose POC Glucose (mg/dL) 208 H 154 H 144 H Calcium Phosphorus Magnesium Total Bilirubin AST ALT Alkaline Phosphatase Ammonia Total Protein Albumin Globulin Albumin/Globulin Ratio 03/27/18 03/27/18 03/27/18 04:10 05:05 05:51 WBC RBC Hgb Hct MCV MCH MCHC RDW Plt Count MPV Neut % (Auto) Lymph % (Auto) [place] % (Auto) Eos % (Auto) Baso % (Auto) Absolute Neuts (auto) Absolute Lymphs (auto) Absolute Monos (auto) Absolute Eos (auto) Absolute Basos (auto) Absolute Nucleated RBC Nucleated RBC % INR (Anticoag Therapy) Sodium 135 Potassium 3.9 Chloride 101 Carbon Dioxide 31 Anion Gap 3 BUN 15 Creatinine < 0.30 L Est GFR ( Amer) 286.1 Est GFR (Non-Af Amer) 236.5 BUN/Creatinine Ratio 50.0 H Glucose 134 H POC Glucose (mg/dL) 142 H Calcium 7.9 L Phosphorus 2.4 L Magnesium 2.2 Total Bilirubin 0.50 AST 15 ALT 8 Alkaline Phosphatase 127 H Ammonia 53 Total Protein 4.6 L Albumin 2.6 L Globulin 2.0 Albumin/Globulin Ratio 1.3 Studies: 03/26 CXR - left basilar atelectasis vs consolidation with small pleural effusion 03/25 CXR - increased vascularity bilaterally 03/23 CXR - hyperinflation. bibasilar atelectasis vs consolidation. small left pleural effusion 03/22 CXR - patchy airspace disease of left lung base. hyperinflation. no pneumothorax. 03/21 CTA chest - no PE. moderate bilateral pleural effusions with adjaced atelectasis. patchy ground glass opacities throughout both lungs. Nondisplaced fractures of left posterior 9-10th ribs. ? midsternal fracture, mildly displaced 03/21 CXR - LLL consolidation with patchy airspace disease throughout. small bilateral pleural effusions. 03/21 CXR - CHF with interval progression 03/20 CXR - CHF with interval improvement 03/19 CXR - extensive bilateral infiltrates and small bilateral effusions, unchanged 03/19 CT abd/pelvis - large amount of free intraperitoneal air, moderate ascites 03/17 CXR - pulmonary intersitital and alveolar edema with small bilateral pleural effusions and bibasilar atelectasis vs consolidation 03/16 CTA chest - No PE. large bilateral pleural effusions with compressive atelectasis. interstitial edema c/w CHF. small 5mm nodule in RML wich is noncalcified and unchanged from 12/17/201703/10 CT abd/pelvis - bilateral pleural effusions, ascites, fatty infiltration of liver, atherosclerosis, right prox femur fracture. No discrete fractures of left 9th and 10th ribs, no lymphadenopathy or other fundings ot suggest metastatic disease 03/09 US liver - 10.1 cm complex cystic lesion deep to pancreas, additinoal 2 cm pancreatic hypodensity. Complex fluid or edema lateral to right kidney. 03/09 US BLE - No DVT 03/09 XR pelvis - displaced angulated intertrochanteric fx of right femur 03/09 CT brain - no acute pathology Impression: 48F admitted after fall, right femur fracture s/p orif, post-op cecal perforation s/p right hemicolectomy. Now with hypoxic resporatory failure. Sepsis 2/2 peritonititis/UTI. Volume overload. Plan: Neuro - awake and following commands - pain control CV - hypotension - bp improved - now off pressors - TTE with normal EF - likely overdiuresed. needed 1L bolus yesterday. Pulm - hypoxic respiratory failure - 2/2 pna/ards - tolerating sbt - plan to extubate today ID - sepsis 2/2 peritonitis/uti - pseudomonas/e.coli/citrobacter/jannet from cultures - abx changed back to zosyn - fever broke gi - cecal perforation, cirrhosis?, h/o colorectal cancer, pancreatic cyst 1) cecal perforation - s/p right hemicolectomy 2) cirrhosis - ammonia improving without lactulose/rifaximin - inr improving with nutrition 3) h/o colorectal cancer - has 5mm nodule in the RML on CT - f/u outpatient 4) h/o pancreatitis - creon once able to take po 5) Nutrition - c/w thiamine/folate/mvi - c/w tube feeds renal - volume overload, hypokalemia, hypomagnesemia, hypophosphatemia - likely overdiuresed - lasix stopped - replete lytes - strict i/o heme - anemia - hgb stable - ngt tube suctioned without blood - no obvious source of bleeding - keep hgb > 7 endo - fs ok MSK - hip fracture - s/p orif lines - LUE PICC, [place], a-line ppx - ppi/hsq Full Code Critical Care Time: 60 mins
[2018-03-27 07:57] LABS: Hematocrit 27 % (35-47); Hemoglobin 8.7 g/dl (12.0-16.0); Mean Corpuscular HGB Conc 33 g/dl (31-36); Mean Corpuscular Hemoglobin 33 pg (27-31); Mean Corpuscular Volume 100 fL (80-97); Mean Platelet Volume 9.3 fL (7.4-10.4); Platelet Count 197 10^3/ul (150-450); Red Blood Count 2.67 10^6/ul (4.00-5.40); Red Cell Distribution Width 21 % (10.5-15); White Blood Count 12.4 10^3/ul (3.5-10.8)
[2018-03-27] MEDS ORDERED: Potassium Phosphate IV* 15 MMOLE in NS 0.9% 250 ML* 250 ML IVPB ONE (08:00)
[2018-03-27] MEDS: fentaNYL INFUSION 50 MCG/ML* 2,500 MCG/50 ML BAG IV SCH (08:09)
[2018-03-27] MEDS: Pantoprazole IV* 40 MG IV SCH (08:32)
[2018-03-27] MEDS: Multivitamins ADULT w/MIN LIQ* 15 ML UDC PO SCH (08:33)
[2018-03-27] MEDS: Thiamine TAB* 100 MG TAB PO SCH (08:34)
[2018-03-27] MEDS: Folic Acid TAB* 1 MG PO SCH (08:34)
[2018-03-27] MEDS: FLUoxetine CAP* 10 MG PO SCH (08:34)
[2018-03-27 08:35] LABS: ABS Basophils 0 10^3/ul (0-0.2); ABS Eosinophils 0.1 10^3/ul (0-0.6); ABS Lymphocytes 1.7 10^3/ul (1.0-4.8); ABS Monocytes 1.3 10^3/ul (0-0.8); ABS Neutrophils 9.2 10^3/ul (1.5-7.7); ABS Nucleated RBC 0 10^3/ul; Eosinophil % 1.1 %; Nucleated Red Blood Cells % 0
[2018-03-27] MEDS ORDERED: Furosemide IV* 10 MG/ML VIAL (40 MG) IV SCH (09:00)
[2018-03-27] MEDS ORDERED: fentaNYL PATCH 50 MCG/HR TRANSDERM SCH (09:00)
[2018-03-27] MEDS: Miconazole TOPICAL CREAM 2%* 30 GM TOPICAL SCH (09:54)
[2018-03-27] MEDS: Fluconazole 100 MG IVPREMIX(*) 100 MG/50 ML BAG IVPB SCH (10:31)
[2018-03-27] MEDS: Clotrimazole 1% CREAM* 45 GM TOPICAL SCH (10:38)
--- NOTE | 2018-03-27 11:28 | PN ---
Progress Note - Progress Note Date of Service: 03/27/18 SOAP: Subjective: []Seen at bedside with son present. She has been extubated. Alert and oriented , cooperative and following commands. Right hip pain minimal. Objective: [] Vital Signs Temp 99.5 F 03/27/18 08:00 Pulse 116 03/27/18 11:00 Resp 16 03/27/18 11:00 BP 96/66 03/26/18 11:40 Pulse Ox 100 03/27/18 11:00 Intake & Output 03/26/18 03/27/18 03/27/18 18:59 06:59 18:59 Intake Total 2035 822 91 Output Total 2102 1065 175 Balance -67 -243 -84 Weight 108 lb 0.424 oz Intake: IV Fluids 1141 114 LR 1000 NS (0.9%) 141 114 IVPB 647 NS (0.9%) 647 Medicated IV 247 97 CC - Dexmedetomidine/ 84 26 Precedex CC - Norepinephrine/ 63 71 Levophed CC - Propofol/Diprivan 93 CC - Vasopressin/ 7 Pitressin IV Narcotic Infusion 61 Fentanyl 61 Oral 0 0 Tube Feeding 491 Tube Feeding Flush Amount 120 30 Output: J Tube 10 T Tube 60 EMELIA #1 50 100 EMELIA #2 110 140 Urine 20 [place] 1942 805 105 Laboratory Results - last 24 hr 03/26/18 03/26/18 03/26/18 13:05 17:32 21:19 WBC 11.0 H RBC 2.63 L Hgb 8.7 L Hct 26 L MCV 98 H MCH 33 H MCHC 34 RDW 20 H Plt Count 165 MPV 9.5 Neut % (Auto) 79.6 Lymph % (Auto) 11.0 [place] % (Auto) 8.0 Eos % (Auto) 0.3 Baso % (Auto) 1.1 Absolute Neuts (auto) 8.7 H Absolute Lymphs (auto) 1.2 Absolute Monos (auto) 0.9 H Absolute Eos (auto) 0 Absolute Basos (auto) 0.1 Absolute Nucleated RBC 0 Nucleated RBC % 0 Sodium Potassium Chloride Carbon Dioxide Anion Gap BUN Creatinine Est GFR ( Amer) Est GFR (Non-Af Amer) BUN/Creatinine Ratio Glucose POC Glucose (mg/dL) 208 H 154 H Calcium Phosphorus Magnesium Total Bilirubin AST ALT Alkaline Phosphatase Ammonia Total Protein Albumin Globulin Albumin/Globulin Ratio 03/27/18 03/27/18 03/27/18 01:35 04:10 05:05 WBC RBC Hgb Hct MCV MCH MCHC RDW Plt Count MPV Neut % (Auto) Lymph % (Auto) [place] % (Auto) Eos % (Auto) Baso % (Auto) Absolute Neuts (auto) Absolute Lymphs (auto) Absolute Monos (auto) Absolute Eos (auto) Absolute Basos (auto) Absolute Nucleated RBC Nucleated RBC % Sodium 135 Potassium 3.9 Chloride 101 Carbon Dioxide 31 Anion Gap 3 BUN 15 Creatinine < 0.30 L Est GFR ( Amer) 286.1 Est GFR (Non-Af Amer) 236.5 BUN/Creatinine Ratio 50.0 H Glucose 134 H POC Glucose (mg/dL) 144 H Calcium 7.9 L Phosphorus 2.4 L Magnesium 2.2 Total Bilirubin 0.50 AST 15 ALT 8 Alkaline Phosphatase 127 H Ammonia 53 Total Protein 4.6 L Albumin 2.6 L Globulin 2.0 Albumin/Globulin Ratio 1.3 03/27/18 03/27/18 05:51 07:43 WBC 12.4 H RBC 2.67 L Hgb 8.7 L Hct 27 L MCV 100 H MCH 33 H MCHC 33 RDW 21 H Plt Count 197 MPV 9.3 Neut % (Auto) 74.3 Lymph % (Auto) 14.0 [place] % (Auto) 10.2 Eos % (Auto) 1.1 Baso % (Auto) 0.4 Absolute Neuts (auto) 9.2 H Absolute Lymphs (auto) 1.7 Absolute Monos (auto) 1.3 H Absolute Eos (auto) 0.1 Absolute Basos (auto) 0 Absolute Nucleated RBC 0 Nucleated RBC % 0 Sodium Potassium Chloride Carbon Dioxide Anion Gap BUN Creatinine Est GFR ( Amer) Est GFR (Non-Af Amer) BUN/Creatinine Ratio Glucose POC Glucose (mg/dL) 142 H Calcium Phosphorus Magnesium Total Bilirubin AST ALT Alkaline Phosphatase Ammonia Total Protein Albumin Globulin Albumin/Globulin Ratio right hip incisions are all healing very well, no erythema ,no drainage or swelling of thigh. calf NT and soft has active DF of the right ankle sensation grossly intact distally foot well perfused all nylon sutures were removed, right thigh, without difficulty steri-strips applied with new 4x4s and tegaderm Assessment: []s/p IM nail right femur fracture POD #13 Plan: []Light dressings as needed right thigh incisions When able to participate with PT- WBAT RLE
--- NOTE | 2018-03-27 12:03 | PN ---
Progress Note - Progress Note Date of Service: 03/27/18 Note: Surgery Progress Note: S: Patient was extubated this morning and is doing well. Son is at the bedside. She is mildly tachycardic and does complain of having some secretions. She does not complain of significant abdominal pain. Continued to have fevers yesterday. O: Vital Signs - 24 hr 03/26/18 03/26/18 03/26/18 12:53 13:00 13:44 Temperature 99.0 F Pulse Rate 91 Respiratory 20 15 22 Rate O2 Sat by Pulse 95 Oximetry 03/26/18 03/26/18 03/26/18 14:00 15:00 16:00 Temperature 99.5 F 99.7 F 99.7 F Pulse Rate 92 91 99 Respiratory 30 26 20 Rate O2 Sat by Pulse 96 96 94 Oximetry 03/26/18 03/26/18 03/26/18 17:00 17:25 18:00 Temperature 99.9 F 100.0 F Pulse Rate 105 104 Respiratory 28 24 24 Rate O2 Sat by Pulse 96 95 Oximetry 03/26/18 03/26/18 03/26/18 19:00 19:30 19:50 Temperature 100.2 F 100.0 F Pulse Rate 111 109 Respiratory 25 22 Rate O2 Sat by Pulse 95 96 Oximetry 03/26/18 03/26/18 03/26/18 20:00 21:00 21:35 Temperature 100.2 F 100.6 F Pulse Rate 109 109 Respiratory 25 30 33 Rate O2 Sat by Pulse 95 94 Oximetry 03/26/18 03/26/18 03/27/18 22:00 23:00 00:00 Temperature 101.1 F 100.6 F 100.9 F Pulse Rate 110 105 117 Respiratory 31 25 25 Rate O2 Sat by Pulse 93 93 91 Oximetry 03/27/18 03/27/18 03/27/18 00:38 01:00 02:00 Temperature 101.5 F 101.3 F Pulse Rate 129 126 Respiratory 31 30 31 Rate O2 Sat by Pulse 92 93 Oximetry 03/27/18 03/27/18 03/27/18 03:00 04:00 05:00 Temperature 100.6 F 99.9 F 99.7 F Pulse Rate 119 109 109 Respiratory 20 20 16 Rate O2 Sat by Pulse 93 93 94 Oximetry 03/27/18 03/27/18 03/27/18 06:00 07:00 07:33 Temperature 99.5 F 99.3 F Pulse Rate 100 106 112 Respiratory 19 19 24 Rate O2 Sat by Pulse 94 95 94 Oximetry 03/27/18 03/27/18 03/27/18 08:00 08:05 08:09 Temperature 99.5 F Pulse Rate 116 Respiratory 15 20 Rate O2 Sat by Pulse 93 92 Oximetry 03/27/18 03/27/18 03/27/18 08:29 09:00 10:00 Temperature Pulse Rate 109 114 Respiratory 15 22 20 Rate O2 Sat by Pulse 98 100 Oximetry 03/27/18 11:00 Temperature Pulse Rate 116 Respiratory 21 Rate O2 Sat by Pulse 100 Oximetry Laboratory Results - last 24 hr 03/26/18 03/26/18 03/26/18 13:05 17:32 21:19 WBC 11.0 H RBC 2.63 L Hgb 8.7 L Hct 26 L MCV 98 H MCH 33 H MCHC 34 RDW 20 H Plt Count 165 MPV 9.5 Neut % (Auto) 79.6 Lymph % (Auto) 11.0 [place] % (Auto) 8.0 Eos % (Auto) 0.3 Baso % (Auto) 1.1 Absolute Neuts (auto) 8.7 H Absolute Lymphs (auto) 1.2 Absolute Monos (auto) 0.9 H Absolute Eos (auto) 0 Absolute Basos (auto) 0.1 Absolute Nucleated RBC 0 Nucleated RBC % 0 Sodium Potassium Chloride Carbon Dioxide Anion Gap BUN Creatinine Est GFR ( Amer) Est GFR (Non-Af Amer) BUN/Creatinine Ratio Glucose POC Glucose (mg/dL) 208 H 154 H Calcium Phosphorus Magnesium Total Bilirubin AST ALT Alkaline Phosphatase Ammonia Total Protein Albumin Globulin Albumin/Globulin Ratio 03/27/18 03/27/18 03/27/18 01:35 04:10 05:05 WBC RBC Hgb Hct MCV MCH MCHC RDW Plt Count MPV Neut % (Auto) Lymph % (Auto) [place] % (Auto) Eos % (Auto) Baso % (Auto) Absolute Neuts (auto) Absolute Lymphs (auto) Absolute Monos (auto) Absolute Eos (auto) Absolute Basos (auto) Absolute Nucleated RBC Nucleated RBC % Sodium 135 Potassium 3.9 Chloride 101 Carbon Dioxide 31 Anion Gap 3 BUN 15 Creatinine < 0.30 L Est GFR ( Amer) 286.1 Est GFR (Non-Af Amer) 236.5 BUN/Creatinine Ratio 50.0 H Glucose 134 H POC Glucose (mg/dL) 144 H Calcium 7.9 L Phosphorus 2.4 L Magnesium 2.2 Total Bilirubin 0.50 AST 15 ALT 8 Alkaline Phosphatase 127 H Ammonia 53 Total Protein 4.6 L Albumin 2.6 L Globulin 2.0 Albumin/Globulin Ratio 1.3 03/27/18 03/27/18 05:51 07:43 WBC 12.4 H RBC 2.67 L Hgb 8.7 L Hct 27 L MCV 100 H MCH 33 H MCHC 33 RDW 21 H Plt Count 197 MPV 9.3 Neut % (Auto) 74.3 Lymph % (Auto) 14.0 [place] % (Auto) 10.2 Eos % (Auto) 1.1 Baso % (Auto) 0.4 Absolute Neuts (auto) 9.2 H Absolute Lymphs (auto) 1.7 Absolute Monos (auto) 1.3 H Absolute Eos (auto) 0.1 Absolute Basos (auto) 0 Absolute Nucleated RBC 0 Nucleated RBC % 0 Sodium Potassium Chloride Carbon Dioxide Anion Gap BUN Creatinine Est GFR ( Amer) Est GFR (Non-Af Amer) BUN/Creatinine Ratio Glucose POC Glucose (mg/dL) 142 H Calcium Phosphorus Magnesium Total Bilirubin AST ALT Alkaline Phosphatase Ammonia Total Protein Albumin Globulin Albumin/Globulin Ratio Intake & Output 03/26/18 03/27/18 03/27/18 22:59 06:59 14:59 Intake Total 562 260 91 Output Total 895 600 175 Balance -333 -340 -84 Weight 108 lb 0.424 oz Intake: IV Fluids 114 NS (0.9%) 114 Medicated IV 97 CC - Dexmedetomidine/ 26 Precedex CC - Norepinephrine/ 71 Levophed IV Narcotic Infusion 61 Fentanyl 61 Oral 0 Tube Feeding 291 200 Tube Feeding Flush Amount 60 60 30 Output: J Tube 10 T Tube 60 EMELIA #1 60 40 EMELIA #2 80 60 Urine 20 [place] 755 480 105 Other: Date of Last Bowel 03/27/18 Movement # Bowel Movements 2 Estimated Stool Amount Large Physical exam: Abd- soft, mildly tender midline laparotomy incision c/d/i, EMELIA x 2 with serous fluid A/P: 48 F with chronic ETOH, pain, pancreatitis, right hip fracture, POD 8 from dx lap, ex lap, RHC for cecal perforation, extubated today. - Continue abx - Continue tube feeds as tolerated, will have to have a swallow study prior to allowing her to begin intake by mouth - PT per orthopedics team - Continue excellent care by ICU team
[2018-03-27] MEDS ORDERED: LORazepam INJ* 2 MG/ML 1 ML VIAL IV PUSH PRN (13:31)
[2018-03-27 14:47] LABS: Hematocrit 27 % (35-47); Hemoglobin 8.7 g/dl (12.0-16.0); Mean Corpuscular HGB Conc 33 g/dl (31-36); Mean Corpuscular Hemoglobin 33 pg (27-31); Mean Corpuscular Volume 100 fL (80-97); Mean Platelet Volume 9.1 fL (7.4-10.4); Platelet Count 194 10^3/ul (150-450); Red Blood Count 2.66 10^6/ul (4.00-5.40); Red Cell Distribution Width 22 % (10.5-15); White Blood Count 11.5 10^3/ul (3.5-10.8)
[2018-03-27] MEDS ORDERED: Lactated Ringers 1000 ML Bag* 500 ML IV SCH (15:00)
[2018-03-27] MEDS ORDERED: Octreotide Acetate* 50 MCG in NS 0.9% 50 ML* 50 ML IVPB ONE (15:54)
[2018-03-27] MEDS ORDERED: Pantoprazole* 80 mg IN NS 80 MG/250 ML BAG IVPB SCH (16:00)
[2018-03-27] MEDS ORDERED: Iohexol 300* (CONTRAST) 10 ML SDV IV ONE (16:02)
[2018-03-27] MEDS ORDERED: Octreotide Acetate* 500 MCG in NS 0.9% 100 ML* 100 ML IVPB SCH (16:15)
[2018-03-27 17:14] LABS: ALT 9 U/L (7-52); AST 18 U/L (13-39); Albumin 2.6 g/dL (3.2-5.2); Albumin/Globulin Ratio 1.4 (1-3); Alkaline Phosphatase 126 U/L (34-104); Anion Gap 2 mmol/L (2-11); Blood Urea Nitrogen 14 mg/dL (6-24); CO2 Carbon Dioxide 31 mmol/L (22-32); Calcium 7.9 mg/dL (8.6-10.3); Chloride 102 mmol/L (101-111); EGFR African American 286.1 (>60); EGFR Non-African American 236.5 (>60); Globulin 1.9 g/dL (2-4); Glucose 97 mg/dL (70-100); Potassium 4.5 mmol/L (3.5-5.0); Sodium 135 mmol/L (135-145); Total Protein 4.5 g/dL (6.4-8.9)
--- NOTE | 2018-03-27 17:49 | DS ---
Date of Admission: 03/09/18 Date of Discharge: 03/27/18 Attending Physician: Martin Nam PCP: Ramses Schwartz Admission Diagnosis: Hip Fracture Discharge Diagnosis: Lower GI bleed Secondary Diagnoses: Alcoholic Cirrhosis Bowel perforation Consultations: Dione Lee (Surgery) Lester Alvarado (Ortho) Bora Enriquez (Neuro) Procedures: ORIF Right Femur Fracture - 03/14/18 X-Lap with Right estrella-colectomy - 03/19/1803/27 CT abd/pel with IV contrast 1. STATUS POST PARTIAL COLECTOMY. 2. AGAIN NOTED IS A CYSTIC LESION OF THE TAIL OF THE PANCREAS, STABLE. 3. THERE IS EXTENSIVE SUBCUTANEOUS EDEMA. 4. THERE ARE MODERATE BILATERAL PLEURAL EFFUSIONS WITH ATELECTASIS OF THE RIGHT LOWER LOBE AND CONSOLIDATION OF THE LEFT LOWER LOBE. 5. THERE IS NO ACTIVE ARTERIAL EXTRAVASATION. 03/26 CXR - left basilar atelectasis vs consolidation with small pleural effusion 03/25 CXR - increased vascularity bilaterally 03/23 CXR - hyperinflation. bibasilar atelectasis vs consolidation. small left pleural effusion 03/22 CXR - patchy airspace disease of left lung base. hyperinflation. no pneumothorax. 03/21 CTA chest - no PE. moderate bilateral pleural effusions with adjaced atelectasis. patchy ground glass opacities throughout both lungs. Nondisplaced fractures of left posterior 9-10th ribs. ? midsternal fracture, mildly displaced 03/21 CXR - LLL consolidation with patchy airspace disease throughout. small bilateral pleural effusions. 03/21 CXR - CHF with interval progression 03/20 CXR - CHF with interval improvement 03/19 CXR - extensive bilateral infiltrates and small bilateral effusions, unchanged 03/19 CT abd/pelvis - large amount of free intraperitoneal air, moderate ascites 03/17 CXR - pulmonary intersitital and alveolar edema with small bilateral pleural effusions and bibasilar atelectasis vs consolidation 03/16 CTA chest - No PE. large bilateral pleural effusions with compressive atelectasis. interstitial edema c/w CHF. small 5mm nodule in RML wich is noncalcified and unchanged from 12/17/201703/10 CT abd/pelvis - bilateral pleural effusions, ascites, fatty infiltration of liver, atherosclerosis, right prox femur fracture. No discrete fractures of left 9th and 10th ribs, no lymphadenopathy or other fundings ot suggest metastatic disease 03/09 US liver - 10.1 cm complex cystic lesion deep to pancreas, additinoal 2 cm pancreatic hypodensity. Complex fluid or edema lateral to right kidney. 03/09 US BLE - No DVT 03/09 XR pelvis - displaced angulated intertrochanteric fx of right femur 03/09 CT brain - no acute pathology HPI: 48 yo F presented to [place] ED on 03/09/2018 after a fall two days prior. Since the fall she was unable to ambulate per family, also bilateral lower extremity edema and generalized weakness. On workup found to have a right intertrochanteric fracture. US BLE negative for DVT. CT brain negative for acute pathology. Admitted to the medical service. Brief Hospital Course: 03/10: Seen by orthopedics service, who recommended proceeding with ORIF when medically cleared. Found on workup to have new cirrhosis with decreased synthetic function and ammonia of 100, as well as failure to thrive. Options for goals of care, including palliative focused, discussed with family. 03/11: started on Rifaximin in addition to lactulose for elevated ammonia. ORIF postponed due to bacteremia; started on cefazolin. 03/13: repeat blood cultures negative. Cleared for surgery but high risk. 03/14: ORIF right femur fracture. 03/16: developed tachycardia. started on gentle fluid resuscitation. Found to have UTI with E.coli and Pseudomonas. Continued on Cefazolin 03/17: developed hypoxia, requiring 15L facemask. CTA done earlier showing bilateral pleural effusion. Given Lasix x 1. Transferred to ICU for vapotherm. 03/18: ID consulted. ABx changed to Zosyn for 7 day course. 03/19: Developed worsened abdominal pain. CT abdomen with free air. General surgery consulted and went to OR for exlap. Found to have cecal perforation; right hemicolectomy with primary anastamosis performed. Noted to have gross peritonitis with pus in gutters. Returned to ICU post procedure, on ventilator. 03/20: Successfully extubated. 03/21: passing gas. AFebrile. on PPN. ABx changed to Cefepime and Flagyl for combined abdominal and vaginal/vulvar coverage. Pain service consulted. 03/22: overnight pt developed increased hypoxia. intubated. requiring PEEP 10a nd FiO2 100% with sats only 88%. Tachycardic to 130s. CTA obtained; negative for PE but demonstrates bilateral patchy infiltrates suggestive of pneumonia vs ARDS. 03/23: weaned off Levophed. NG placed. Scheduled diuresis started. 03/24: TF started. 03/26: failed sbt, becoming febrile. 03/27: abx changed back to zosyn. extubated to nasal cannula. Patient started having brright red blood per rectum. No GI available and No IR. Discussed with surgery and no revision of hemicolectomy would be feasible without GI evaluation. Transfer process started to have GI evaluation. Physical Exam: Vital Signs: Temp Pulse Resp BP Pulse Ox 100.8 F 133 8 117/81 99 03/27/18 16:00 03/27/18 17:00 03/27/18 17:00 03/27/18 16:50 03/27/18 17:00 Gen - chronically ill Heent - ngt neck - no jvd cv - s1/s2, no murmur, tachy lungs - dec bs at bases abd - soft, giorgi x 2, incision CDI ext - no cce rectal - bright red blood on glove neuro - awake, following commands Pending Lab or Test Results: None Immunizations Given During Admission: None Discharge Disposition: Critical Diet: NPO Discharge Medications: Acetaminophen (Tylenol Adult Liq*) 650 mg PO Q6H PRN PRN Reason: TEMP EQUAL OR GREATER 101 F Last Admin: 03/27/18 01:44 Dose: 650 mg Albuterol (Ventolin 2.5 Mg/3 Ml Neb.Radha*) 2.5 mg INH Q2H PRN PRN Reason: SOB/WHEEZING Clotrimazole (Clotrimazole 1%*) 1 applic TOPICAL BID [facility] Last Admin: 03/27/18 10:38 Dose: Not Given Fentanyl (Duragesic Patch 50 Mcg/Hr*) 50 mcg TRANSDERM Q72H [facility] Last Admin: 03/27/18 08:29 Dose: 50 mcg Fluoxetine HCl (Prozac Cap*) 10 mg PO DAILY [facility] Last Admin: 03/27/18 08:34 Dose: 10 mg Folic Acid (Folvite Tab*) 1 mg PO DAILY [facility] Last Admin: 03/27/18 08:34 Dose: 1 mg Heparin Sodium (Porcine) (Heparin Flush Picc/Ml/Cvc(*)) 1 - 3 ml FLUSH 0600, 1800 [facility]; Protocol Last Admin: 03/27/18 17:13 Dose: Not Given Hydromorphone HCl (Dilaudid Inj1s*) 0.5 mg IV SLOW PU Q2H PRN PRN Reason: PAIN - MODERATE TO SEVERE Last Admin: 03/26/18 04:11 Dose: 0.5 mg Fluconazole/Sodium Chloride (Diflucan 100 Mg Ivpremix(*)) 100 mg in 50 mls @ 100 mls/hr IVPB Q24H [facility] Stop: 03/29/18 09:00 Last Admin: 03/27/18 10:31 Dose: 100 mls/hr Piperacillin Sod/Tazobactam (Sod 3.375 gm/ Sodium Chloride) 100 mls @ 25 mls/ hr IVPB Q8H [facility] Last Admin: 03/27/18 17:01 Dose: 25 mls/hr Lactated Ringer's (Lactated Ringers 1000 Ml Bag*) 500 mls @ 999 mls/hr IV .ENTER RATE [facility] Last Admin: 03/27/18 14:42 Dose: 999 mls/hr Octreotide Acetate 500 mcg/ (Sodium Chloride) 101 mls @ 10.1 mls/hr IVPB Q10H [facility] Last Admin: 03/27/18 17:27 Dose: 10.1 mls/hr Pantoprazole Sodium (Protonix Iv Bag*) 80 mg in 250 mls @ 25 mls/hr IVPB Q10H [facility] Last Admin: 03/27/18 17:03 Dose: 25 mls/hr Lorazepam (Ativan Inj*) 0.5 mg IV PUSH Q4H PRN PRN Reason: ANXIETY Miconazole Nitrate (Monistat 2%*) 1 applic TOPICAL BID [facility] Last Admin: 03/27/18 09:54 Dose: Not Given Multivitamins (Theragran W/Minerals Liq*) 15 ml PO DAILY [facility] Last Admin: 03/27/18 08:33 Dose: 15 ml Pharmacy Consult (Zosyn Per Pharmacy*) 1 note FOLLOW UP .ZOSYN PER PHARMACY [facility] Pharmacy Profile Note (Fentanyl Patch Check Q Shift) 1 note N/A 0700,1900 [facility] Thiamine HCl (Vitamin B-1 Tab*) 100 mg PO DAILY [facility] Last Admin: 03/27/18 08:34 Dose: 100 mg Discharge Instructions: Needs GI evaluation for lower GI bleed. Follow-up Appointments: None CC: Lana Harry
[2018-03-27] MEDS ORDERED: Norepinephrine 16MCG/ML IVPRE* 4,000 MCG/250 ML BAG IV SCH (19:00)
[2018-03-27] MEDS ORDERED: fentaNYL Patch Check Q Shift 1 NOTE SCH (19:00)
[2018-03-27 19:05] VITALS: BP 95/68
== END 2018-03-27 19:54 | disposition short-term general hospital (02) | DRG 480 ==
LOC: ED 17:35 → SSU 21:35 → MED 03-16 15:01 → ICU 03-17 07:02 → MED 03-18 16:11 → ICU 03-19 20:35
PROVIDERS: ADMIT Pediatrics; ATTEND Internal Medicine
PROC: 30233N1 Transfusion of Nonautologous Red Blood Cells into Peripheral Vein, Percutaneous Approach (ICD-10-PCS; 2018-03-09)
PROC: 0DH67UZ Insertion of Feeding Device into Stomach, Via Natural or Artificial Opening (ICD-10-PCS; 2018-03-09)
PROC: 0DTF0ZZ Resection of Right Large Intestine, Open Approach (ICD-10-PCS; 2018-03-14)
PROC: 0QS604Z Reposition Right Upper Femur with Internal Fixation Device, Open Approach (ICD-10-PCS; principal; 2018-03-22)
PROC: 02HV33Z Insertion of Infusion Device into Superior Vena Cava, Percutaneous Approach (ICD-10-PCS; 2018-03-22)
PROC: 4A133B1 Monitoring of Arterial Pressure, Peripheral, Percutaneous Approach (ICD-10-PCS; 2018-03-22)
PROC: 0BH17EZ Insertion of Endotracheal Airway into Trachea, Via Natural or Artificial Opening (ICD-10-PCS; 2018-03-22)
DX: S72.141A Displaced intertrochanteric fracture of right femur, initial encounter for closed fracture (principal); E43 Unspecified severe protein-calorie malnutrition; J96.01 Acute respiratory failure with hypoxia; K63.1 Perforation of intestine (nontraumatic); A41.9 Sepsis, unspecified organism; R65.21 Severe sepsis with septic shock; R40.2114 Coma scale, eyes open, never, 24 hours or more after hospital admission; R40.2214 Coma scale, best verbal response, none, 24 hours or more after hospital admission; N39.0 Urinary tract infection, site not specified; K86.1 Other chronic pancreatitis; R64 Cachexia; Z68.1 Body mass index [BMI] 19.9 or less, adult; I97.51 Accidental puncture and laceration of a circulatory system organ or structure during a circulatory system procedure; I82.611 Acute embolism and thrombosis of superficial veins of right upper extremity; G89.29 Other chronic pain; R40.0 Somnolence; K72.90 Hepatic failure, unspecified without coma; R27.8 Other lack of coordination; F32.9 Major depressive disorder, single episode, unspecified; F10.20 Alcohol dependence, uncomplicated; K70.10 Alcoholic hepatitis without ascites; W19.XXXA Unspecified fall, initial encounter; E88.09 Other disorders of plasma-protein metabolism, not elsewhere classified; B96.20 Unspecified Escherichia coli [E. coli] as the cause of diseases classified elsewhere; B96.5 Pseudomonas (aeruginosa) (mallei) (pseudomallei) as the cause of diseases classified elsewhere; R29.6 Repeated falls; R62.7 Adult failure to thrive; M85.80 Other specified disorders of bone density and structure, unspecified site; G60.3 Idiopathic progressive neuropathy; D63.8 Anemia in other chronic diseases classified elsewhere; G62.1 Alcoholic polyneuropathy; M81.0 Age-related osteoporosis without current pathological fracture; E83.42 Hypomagnesemia; E87.6 Hypokalemia; Y92.9 Unspecified place or not applicable; R00.0 Tachycardia, unspecified; R40.2354 Coma scale, best motor response, localizes pain, 24 hours or more after hospital admission; R91.8 Other nonspecific abnormal finding of lung field; F11.90 Opioid use, unspecified, uncomplicated; R15.9 Full incontinence of feces; Y83.8 Other surgical procedures as the cause of abnormal reaction of the patient, or of later complication, without mention of misadventure at the time of the procedure; L89.152 Pressure ulcer of sacral region, stage 2; Z85.038 Personal history of other malignant neoplasm of large intestine; Z88.1 Allergy status to other antibiotic agents; Z90.49 Acquired absence of other specified parts of digestive tract; Z80.0 Family history of malignant neoplasm of digestive organs; Z72.89 Other problems related to lifestyle; Z87.891 Personal history of nicotine dependence; Z92.21 Personal history of antineoplastic chemotherapy; Z92.3 Personal history of irradiation; Z87.81 Personal history of (healed) traumatic fracture; Y90.9 Presence of alcohol in blood, level not specified; Z78.1 Physical restraint status; K70.30 Alcoholic cirrhosis of liver without ascites
CPT/HCPCS: 36415; 36600; 36620; 70450; 71045; 71275; 74177; 76000; 76705; 80048; 80053; 80076; 80320; 81003; 81015; 82140; 82248; 82272; 82330; 82533; 82607; 82728; 82803; 83540; 83550; 83605; 83690; 83735; 83880; 84100; 84134; 84145; 84443; 84478; 84484; 84630; 85014; 85018; 85025; 85027; 85060; 85610; 85730; 86140; 86850; 86900; 86901; 86922; 87040; 87070; 87077; 87086; 87106; 87150; 87186; 87205; 87641; 88304; 88307; 88341; 88342; 93005; 93306; 93970; 94002; 94003; 94640; 94660; 99285; A9270-GY; C1713; C1751; C1776; G0480; G8978-GP-CM; G8979-GP-CI; J0330; J0610; J0690; J0692; J1100; J1170; J1450; J1644; J1650; J1756; J1940; J2060; J2250; J2270; J2354; J2405; J2543; J2704; J2997; J3010; J3370; J3411; J3475; J3480; J3490; P9040; P9045; P9047; Q9967

== ENCOUNTER 2018-08-26 21:40 | Emergency (ER) | payer OTHER ==
--- OUTSIDE RECORDS SUMMARY | 2018-08-26 22:05 | XMS REPORT | Continuity of Care Document ---
:1970 External Reference #:[id number] Author Name Ana Jimenez Care Team Providers Name Role Phone Atilio Harry M.D. Primary Care Physician Unavailable Payers Date Identification Numbers Payment Provider Subscriber Policy Number: [id number] [employer] Radha Morat[employer] Group Number: [id number] [address] PayID: [id number] [place] [address] Problems Active Problems Provider Date Fracture of unspecified part of neck of right Vita Lopez M.D. 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 Tobacco Use Start: Unknown Occasionally Smokes On and off 20 yrs Cigarettes ETOH Use Occasionally consumes wine cooler/beer alcohol 6-7 drinks per week Tobacco Use Start: Unknown End: Patient is a former quit isn 2009 smoked Unknown smoker on/off for 18 yrs 1/2 ppd Smoking Status Reviewed: 08/16/18 Patient is a former quit isn 2009 smoked smoker on/off for 18 yrs 1/2 ppd Exercise Exercises regularly Type/Frequency Allergies, Adverse Reactions, Alerts Active Allergies Reaction Severity Comments Date contrast dye severe GI reaction CT scan 01/24/2009 Cipro Diarrhea, Nausea GI 08/14/2017 Bactrim Diarrhea, cramps 05/24/2018 Inactive Allergies NKDA 03/09/2008 Medications Active Medications SIG Qnty Indications Ordering Provider Date Left Wrist Brace For 1units G56.32 Ramses Schwartz, 08/06/2018 Carpal Tunnel M.D. Syndrome Knee Scooter use as needed for S82.852D Lester Brice MD 07/02/2018 non-weightbearing ht: 64" wt: 85lbs Famotidine 1 po qd (on hold 30tabs G62.9 Ramses Schwartz, 01/06/2018 40mg Tablets per pt) M.D. Compression Stockings please use daily 2units R20.Nora Carbone, 2017 as needed for M.D. Misc leg/foot swelling Compression Stockings please use daily 2units Johny Carbone, 08/14/2017 as needed for M.D. Misc leg/foot swelling Multi Vitamin 1 po qd 90tabs Qutaybeh S. 03/09/2008 Tablets Dayanna Garber Lorazepam 2 po daily Unknown 1mg Tablets [facility] Wound/Burn as directed Unknown Dressing change dressing Gel daily and as needed. MS Contin 1 tab by mouth Unknown 30mg Tablets twice a day as ER needed pain History Medications Gamunex-C infuse 15 gms per Ramses French 02/04/2018 - 10GM/100ML day, for two days Dayanna Schwartz Unknown Solution in a row,can pre-medicate with tylenol 650 mg as needed Gabapentin 1 po bid for 1 wk 90caps R20.8 Ramses French 01/26/2018 - 300mg then 1 tid Dayanna Schwartz Unknown Capsules Solu-Medrol 1000 mg iv in 100 3units G62.9 Ramses French 01/06/2018 - 1000mg cubic centimeters Dayanna Schwartz 01/18/2018 Solution Rec ns infuse everyday for 3 days Gabapentin take 1 capsule by 45caps R20Ginger Carbone, 10/21/2017 - 100mg mouth at night for M.DNidhi 01/26/2018 Capsules 1 week then 1 by mouth twice daily ongoing Prolia 60 mg sc q6mon 60mg Johny Mlilerdor, 10/05/2017 - 60mg/ml Solution M.D. Unknown B12 Fast Dissolve sublingual daily 90tabs Johny Tona, 08/14/2017 - M.D. Unknown 5000mcg Tablets Dispers Percocet 1 po q4h prn 40tabs Jj S. 01/24/2009 - 5-325mg Dayanna Garber Unknown Tablets Ativan 1 po qd prn 10tabs Jj S. 01/24/2009 - 0.5mg Tablets Dayanna Garber 12/14/2017 Lidoderm apply topically qd 30units Jj S. 03/09/2008 - 5% Patches prn Dayanna Garber 01/24/2009 Lorazepam 1 q 6 hours prn 30tabs Jj S. 03/09/2008 - 1mg Tablets Dayanna Garber 01/24/[address] on lips 1Bottle Jj S. 03/09/2008 - 1GM/10ML Dayanna Garber 04/06/2008 Suspension Immodium 1 po qd prn 30units Jj S. 03/09/2008 - 2mg Dayanna Garber 06/30/2008 Vicodin 1 q 4-6 hours prn 180tabs Jj S. 03/09/2008 - 5-500mg Tablets Dayanna Garber 01/24/2009 Miracle Mouth Wash qid 30units Jj S. 03/09/2008 - Dayanna Garber 06/30/2008 2Teaspoons Liquid Lidicaine Mouth Rinse 3-4 X 90tabs Ifeomaybkennedy S. 03/09/2008 - Tablets Day Dayanna Garber 01/24/2009 Amoxicillin Take 5 Milliliters Unknown - 250mg/5ML By Mouth Three 07/25/2018 Suspension Rec Times A Day For 14 Days For Wou... (Refer To Prescription Notes). Milk Of Magnesia Unknown - 05/23/2018 Menthol-Zinc Oxide Unknown - Ointment 05/23/2018 Fleet Enema take one per week Unknown - if needed 05/23/2018 7-19GM/118ML Enema Bisacodyl insert 1 Unknown - 10mg suppository 05/23/2018 Suppository rectally every 24 hours as needed for constipation, insert ideally after breakfast Acquacel Unknown - 05/23/2018 Acetaminophen 325mg Unknown - 05/23/2018 Cefazolin Sodium Unknown - 1gm 05/23/2018 Solution Rec Oxycontin 1 tab As needed Unknown - 10mg Tab ER 08/06/2018 12H Abuse-Det Creon 1 po qd Unknown - [id number] Caps DR Unknown Part Advil as needed Unknown - 200mg Tablets 05/23/2018 Vitamin B-Complex 1 by mouth every Unknown - day 12/14/2017 Tablets Famotidine 1 by mouth twice a Unknown - 40mg Tablets day, as needed Unknown Melatonin 1 tab by mouth at Unknown - Capsules bedtime as needed Unknown for insomnia Biotin Unknown - Capsules 12/14/2017 Calcium 600 2 by mouth every Unknown - Tablets day Unknown Vital Signs Date Vital Result Comment 08/16/2018 1:38pm Height 64 inches 5'4" Heart Rate 74 /min BP Systolic 98 mmHg BP Diastolic 66 mmHg Respiratory Rate 16 /min Pain Level 5 08/06/2018 2:52pm Height 64 inches 5'4" Weight 94.25 lb Heart Rate 77 /min BP Systolic Sitting 94 mmHg BP Diastolic Sitting 69 mmHg O2 % BldC Oximetry 97 % BMI (Body Mass Index) 16.2 kg/m2 07/27/2018 2:39pm Height 64 inches 5'4" Weight 91.00 lb Heart Rate 84 /min Body Temperature 98.2 F O2 % BldC Oximetry 97 % BMI (Body Mass Index) 15.6 kg/m2 07/26/2018 12:29pm Height 64 inches 5'4" Weight 92.00 lb Heart Rate 80 /min BP Systolic Sitting 110 mmHg Lue regular cuff BP Diastolic Sitting 60 mmHg Lue regular cuff Respiratory Rate 12 /min O2 % BldC Oximetry 98 % BMI (Body Mass Index) 15.8 kg/m2 Neck Circumference in inches 12 07/02/2018 1:21pm Height 64 inches 5'4" Weight 85.00 lb Heart Rate 79 /min BP Systolic 90 mmHg BP Diastolic 58 mmHg Body Temperature 98.5 F Pain Level 4 BMI (Body Mass Index) 14.6 kg/m2 06/22/2018 2:31pm Heart Rate 76 /min BP Systolic 104 mmHg BP Diastolic 66 mmHg Respiratory Rate 14 /min Body Temperature 98.9 F 06/14/2018 2:50pm Height 64 inches 5'4" Weight 85.00 lb Heart Rate 72 /min BP Systolic 98 mmHg BP Diastolic 56 mmHg Respiratory Rate 12 /min Pain Level 6 BMI (Body Mass Index) 14.6 kg/m2 06/07/2018 10:52am Height 64 inches 5'4" Weight 78.00 lb Heart Rate 76 /min BP Systolic 108 mmHg BP Diastolic 72 mmHg Pain Level 9 BMI (Body Mass Index) 13.4 kg/m2 05/24/2018 4:25pm Height 64 inches 5'4" Weight 77.00 lb Heart Rate 72 /min BP Systolic Sitting 84 mmHg BP Diastolic Sitting 58 mmHg Respiratory Rate 14 /min Body Temperature 98.4 F BMI (Body Mass Index) 13.2 kg/m2 04/26/2018 2:14pm Height 64 inches 5'4" Weight 70.00 lb patient stated Heart Rate 60 /min Respiratory Rate 20 /min Body Temperature 98.9 F Pain Level 8 BMI (Body Mass Index) 12.0 kg/m2 04/20/2018 2:48pm Height 64 inches 5'4" Weight 70.00 lb Heart Rate 76 /min BP Systolic 100 mmHg BP Diastolic 80 mmHg Respiratory Rate 16 /min Body Temperature 98.7 F BMI (Body Mass Index) 12.0 kg/m2 01/26/2018 10:49am Height 64 inches 5'4" Weight 85.50 lb Heart Rate 68 /min BP Systolic Sitting 98 mmHg BP Diastolic Sitting 60 mmHg Respiratory Rate 15 /min BMI (Body Mass Index) 14.7 kg/m2 01/06/2018 12:27pm Height 64 inches 5'4" Weight [...] Date Facility Test Result H/L Range Note Xray 07/27/2018 [facility] Knee Left 1-2 VWS <pending> [address] [place] [address] [phone] Ankles Bilateral <pending> Laboratory test 06/16/2018 [facility] Prealbumin 17 mg/dL Low 18-38 finding [address] [place] [address] [phone] C Reactive Protein 2.05 mg/L N <8.01 Laboratory test 06/01/2018 [facility] Prealbumin 10 mg/dL Low 18-38 finding [address] [place] [address] [phone] C Reactive Protein 35.41 mg/L High <8.01 CBC Auto Diff 02/16/2018 [facility] White Blood 4.1 10^3/uL N 3.5-10.[address] [place] [address] [phone] Red Blood Count 3.38 10^6/uL Low 4.00-5.40 [...] Red Blood Cells % 0.1 Inr/Protime 02/16/2018 [facility] Inr 1.23 High 0.77-1.02 [address] [place] [address] [phone] Comp Metabolic 02/16/2018 [facility] Sodium 132 mmol/L Low 135 -145 Panel [address] [place] [address] [phone] Chloride 87 mmol/L Low 101-111 Co2 Carbon [...] mmol/L N 2-11 Iron & Iron Binding 02/16/2018 [facility] Iron 116 g/dL N 50 -212 Capacity [address] [place] [address] [phone] Unsaturated Iron Binding < 124 g/dL Total Iron Binding Capacity 139 g/dL Low 250-450 Transferrin 99 mg/dL Low 203-362 % Iron Saturation 83 % High 15-55 Laboratory 02/16/2018 [facility] Ferritin 421.9 ng/mL High 11- 307 test finding [address] [place] [address] [phone] Hepatitis 02/16/2018 [facility] Hepatitis B Nonreactive Nonreactive Acute Panel [address] [place] [address] Antigen [phone] Hepatitis B Core IgM Nonreactive Nonreactive Hepatitis A AB IgM Nonreactive Nonreactive HCV Index 0.0 Index Hepatitis C Antibody Nonreactive Nonreactive Laboratory test 02/16/2018 [facility] Ceruloplasmin 24.5 mg/dL [address] [place] [address] [phone] Tissue Transglutamianse Iga AB <1.2 U/mL 4 Immunoglobulin A (Iga) 346 mg/dL 61 - 356 5 Anti Nuclear Antibody 0.7 U 6 Smooth Muscle Antibody Negative Negative 7 Mitochondrial AB AMA M2 Igg 0.1 U Abnormal 8 Alpha 1 Antitrypsin 02/16/2018 [facility] A1a Phenotype MM bands [address] [place] [address] [phone] Alpha 1 Antitrypsin A1a 189 mg/dL 100 - 190 10 Laboratory test 01/11/2018 [facility] Lactic Acid 1.2 mmol/L N 0.5-2.0 [address] [place] [address] [phone] CBC Auto Diff 01/11/2018 [facility] White Blood 9.5 10^3/uL N 3.5-10.[address] [place] [address] [phone] Red Blood Count 3.33 10^6/uL Low 4.00-5.40 Hemoglobin 12.2 g/dL N 12.0-16.0 Hematocrit 36 % N 35-47 Mean Corpuscular Volume 107 fL High 80-97 12 Mean Corpuscular Hemoglobin 37 pg High 27-31 Mean Corpuscular HGB Conc 34 g/dL N 31-36 Red Cell Distribution Width 15 % N 10.5-15 Platelet Count 168 10^3/uL N 150-450 Mean Platelet Volume 8.0 fL N 7.4-10.4 Manual Differential 01/11/2018 [facility] Neutrophil % 89 % [address] [place] [address] [phone] Lymphocytes % 5 % Monocytes % 6 % Macrocytosis 1+ Stomatocytes 1+ Abs Neutrophils 8.5 10^3/uL High 1.5-7.7 Abs Lymphocytes 0.5 10^3/uL Low 1.0-4.8 Abs Monocytes 0.5 10^3/uL N 0-0.8 Comp Metabolic Panel 01/11/2018 [facility] Sodium 129 mmol/L Low 135-[address] [place] [address] [phone] Potassium 3.5 mmol/L N 3.5-5.0 Chloride 93 mmol/L Low 101-111 Co2 Carbon Dioxide 32 mmol/L N 22-32 Anion Gap 4 mmol/L N 2-11 Glucose 91 mg/dL N 70-100 Blood Urea Nitrogen 8 mg/dL N 6-24 Creatinine 0.41 mg/dL Low 0.51-0.95 BUN/Creatinine Ratio 19.5 N 8-20 Calcium 8.4 mg/dL Low 8.6-10.3 Total Protein 6.5 g/dL N 6.4-8.9 Albumin 2.6 g/dL Low 3.2-5.2 Globulin 3.9 g/dL N 2-4 Albumin/Globulin Ratio 0.7 Low 1-3 Total Bilirubin 1.00 mg/dL N 0.2-1.0 Alkaline Phosphatase 178 U/L High 34-104 Alt 29 U/L N 7-52 Ast 41 U/L High 13-39 Egfr Non- 165.6 >60 Egfr 200.3 >60 13 Laboratory test 01/11/2018 [facility] Magnesium 1.5 mg/dL Low 1.9-2.7 finding [address] [place] [address] [phone] Lipase 86 U/L High 11.0-82.0 C Reactive Protein 12.28 mg/L High <8.01 Urinalysis Profile 01/11/2018 [facility] Urine Color Straw [address] [place] [address] [phone] Urine Appearance Clear Urine Specific [place] 1.003 Low 1.010-1.030 Urine pH 8.0 N 5-9 Urine Urobilinogen Negative Negative Urine Ketones Negative Negative Urine Protein Negative Negative Urine Leukocytes Negative Negative Urine Blood Negative Negative Urine Nitrite Negative Negative Urine Bilirubin Negative Negative Urine Glucose Negative Negative Laboratory test 01/11/2018 [facility] Pathologist Review (SEE NOTE) 14 finding [address] [place] [address] [phone] Laboratory test 01/06/2018 [facility] Anti Ssa/Ro 0.8 U 15 finding [address] [place] [address] [phone] Anti SSB LA <0.2 U 16 Erythrocyte Sed Rate 19 mm/Hr High 0-14 Cyclic Citrullinated Pep Igg <15.6 U 17 Ganglioside 01/06/2018 [facility] Monosialo GM1 <1:250 <=1: 500 Antibody Panel 101 [facility] [place] [place] [address] [phone] Monosialo GM1 IgM Antibody <1:250 <=1:1000 Asialo GM1 IgG Antibody <1:250 <=1:4000 Asialo GM1 IgM Antibody <1:250 <=1:4000 Disialo GD1b IgG Antibody <1:250 <=1:1000 Disialo GD1b IgM Antibody <1:250 <=1:1000 18 Basic Metabolic 12/29/2017 [facility] Sodium 130 mmol/L Low 135-[address] [place] [address] [phone] Potassium 4.4 mmol/L N 3.5-5.0 Chloride 95 mmol/L Low 101-111 Co2 Carbon Dioxide 29 mmol/L N 22-32 Anion Gap 6 mmol/L N 2-11 Glucose 138 mg/dL High 70-100 Blood Urea Nitrogen 3 mg/dL Low 6-24 Creatinine 0.48 mg/dL Low 0.51-0.95 BUN/Creatinine Ratio 6.3 Low 8-20 Calcium 8.2 mg/dL Low 8.6-10.3 Egfr Non- 138.0 >60 Egfr 167.0 >60 19 Vitamin B12 10/05/2017 [facility] Vitamin B12 > 1450 High 180- 914 [address] pg/[place] [address] [phone] Folic Acid (Folate) 15.74 ng/mL >3.99 21 Connective Tissue 08/25/2017 [facility] Anti-Nuclear 0.2 U [address] [place] [address] [phone] Cyclic Citrullinated Peptide <15.6 U 23 Interpretation See Comment 24 Laboratory test 08/25/2017 [facility] Vitamin D, 1,25 75 pg/mL 18-78 [address] [place] [address] [phone] Free T4 (Free Thyroxine) 0.81 ng/dL N 0.61-1.12 26 Thyroperoxidase AB 17.72 IU/mL High <9 27 Laboratory test 08/25/2017 [facility] Mitochondrial AB <0.1 U [address] AMA M[place] [address] [phone] Hla B27 08/25/2017 [facility] Hla B27 Negative [address] [place] [address] [phone] Hla B27 Interp See Comment 30 Laboratory 08/07/2017 [facility] Carcinoembryonic 19.0 High 0.1-5.0 31 test finding [address] Antigen Cea ng/[place] [address] [phone] Comp Metabolic 08/07/2017 [facility] Sodium 135 N 135-[address] mmol/[place] [address] [phone] Potassium 4.1 mmol/L N 3.5-5.0 Chloride 98 [...] Egfr Non- 138.0 >60 Egfr 167.0 >60 32 CBC Auto Diff 08/07/2017 [facility] White Blood 7.7 10^3/uL N 3.5-10.[address] [place] [address] [phone] Red Blood Count 3.42 10^6/uL Low 4.00-5.40 Hemoglobin 12.6 g/dL N 12.0-16.0 Hematocrit 37 % N 35-47 Mean Corpuscular Volume 107 fL High 80-97 33 Mean Corpuscular Hemoglobin 37 pg High 27-31 [...] 0-2 Nucleated Red Blood Cells % 0 1 Because ethnic data is not always [...] dialysis) 2 Critical Result K:2.7 Called to [id number] at: 14:49:31 by:[id number] Read back by:[id number] REFERENCE VALUE 20.0 - 51.0 Test Performed by: [facility] [address] [place] [address] 4 REFERENCE VALUE <4.0 (Negative) Test Performed by: [facility] [address] [place] [address] 5 Test Performed by: [address] [address] 6 REFERENCE VALUE <=1.0 (Negative) Test Performed by: [facility] [place] [address] 7 ADDITIONAL INFORMATION This test was developed and its performance characteristics determined by [facility] in a manner consistent with CLIA requirements. This test has not been cleared or approved by the U.S. Food and Drug Administration. Test Performed by: [facility] [place] [address] 8 Interpretation: Borderline (0.1-0.3) REFERENCE VALUE <0.1 (Negative) Test Performed by: [place] [address] 9 A single M isoform is detected. In the context of a normal zivue-6-loicdsylpfe concentration, this is consistent with an MM phenotype. Reviewed by: Nicole Mcdonnell, Ph.D. 10 Test Performed by: [place] [address] 11 [facility] Severe Sepsis and Septic Shock Management Bundle Measure requires all lactic acids initially measuring >2.0 mmol/L be repeated. 12 Consistent with Previous Results Reported on 12/16/17 13 Because ethnic data is not always [...] 5 Kidney failure <15 (or dialysis) 14 Mild macrocytosis noted. Additional studies as clinically warranted. Reviewed by Dr. Brown 15 REFERENCE VALUE <1.0 (Negative) Test Performed by: [facility] [employer] [address] [place] [address] 16 REFERENCE VALUE <1.0 (Negative) Test Performed by: [facility] - [address] [address] 17 REFERENCE VALUE <20.0 (Negative) Test Performed by: [address] [address] 18 ADDITIONAL INFORMATION This test was developed and its performance characteristics determined by [facility] in a manner consistent with CLIA requirements. This test has not been cleared or approved by the U.S. Food and Drug Administration. Test Performed by: [facility] - [address] [address] 19 Because ethnic data is not always readily [...] 15-29 5 Kidney failure <15 (or dialysis) 20 Normal Range 180 to 914 Indeterminate Range 145 to 180 Deficient Range <145 21 Please check labs 2 weeks 22 REFERENCE VALUE <=1.0 (Negative) 23 REFERENCE VALUE <20.0 (Negative) 24 Tests for antibodies to dsDNA and YAA antigens are not performed automatically unless the IVONNE result is > or= 3.0 U. Studies performed at [facility] indicate that positive IVONNE results <3.0 U are rarely accompanied by positive second order tests. Test Performed by: [facility] - [address] [address] 25 ADDITIONAL INFORMATION This test was developed and its performance characteristics determined by [facility] in a manner consistent with CLIA requirements. This test has not been cleared or approved by the U.S. Food and Drug Administration. Test Performed by: [facility] [address] [place] [address] 26 Please check labs this week 27 Please check labs this week 28 REFERENCE VALUE <0.1 (Negative) Test Performed by: [facility] - [address] [address] 29 REFERENCE VALUE Not Applicable 30 RESULT: HLA-B27 antigen was not detected. ADDITIONAL INFORMATION Method: Flow Cytometry Performing Laboratory CLIA# [id number] Test Performed by: [address] [address] 31 Nonsmokers: < 2.9 ng/mL Some smokers may have elevated CEA, usually <5.0 ng/mL. Serum markers are not specific for malignancy, and values may vary by method. The testing method is an immunoenzymatic assay miller wood [employer] performed on [employer] DXI 600. Do not interpret serum CEA levels as absolute evidence of the presence or the absence of malignant disease. Use serum CEA in conjunction with information from the clinical evaluation of the patient and other diagnostic procedures. 32 Because ethnic data is not always readily [...] 15-29 5 Kidney failure <15 (or dialysis) 33 Consistent with Previous Results Reported on 04/08/17 Procedures Date Code Description Status 08/13/2018 28881 Removal Devitalization Tissue Wound Less Than Equal 20 Completed Square CM 08/06/2018 95900 Removal Devitalization Tissue Wound Less Than Equal 20 Completed Square CM 07/26/2018 78929 Removal Devitalization Tissue Wound Less Than Equal 20 Completed Square CM 07/19/2018 16974 Removal Devitalization Tissue Wound Less Than Equal 20 Completed Square CM 07/12/2018 72028 Removal Devitalization Tissue Wound Less Than Equal 20 Completed Square CM 07/06/2018 32656 Debridement Skin,& sq Tissue Completed 07/02/2018 29511 Short Leg Cast Completed 06/28/2018 54437 Removal Devitalization Tissue Wound Less Than Equal 20 Completed Square CM 06/21/2018 36206 Removal Devitalization Tissue Wound Less Than Equal 20 Completed Square CM 06/14/2018 41780 Short Leg Cast Completed 06/14/2018 40015 Removal Devitalization Tissue Wound Less Than Equal 20 Completed Square CM 06/07/2018 08066 Removal Devitalization Tissue Wound Less Than Equal 20 Completed Square CM 06/07/2018 04124 Short Leg Cast Completed 06/01/2018 73452 Debridement Skin,& sq Tissue Completed 05/10/2018 88739 Removal Devitalization Tissue Wound Less Than Equal 20 Completed Square CM 03/27/2018 88101 EKG, Interpretation Only Completed 03/22/2018 24569 Arterial Line Completed 03/22/2018 28649 Insert Non-Tunneled Venous Catether Completed 03/19/2018 15112 Colectomy,Partial Removal Terminal Ileum Completed W/Ileocolostomy 03/19/2018 43676 Colectomy,Partial Removal Terminal Ileum Completed W/Ileocolostomy 03/16/2018 59811 EKG, Interpretation Only Completed 03/15/2018 56238 EKG, Interpretation Only Completed 03/14/2018 69781 FX TX Inter/Gabrielle Or Sub Chanteric Femoral FX Completed W/Implant 03/14/2018 56510 FX TX Inter/Gabrielle Or Sub Chanteric Femoral FX Completed W/Implant 03/14/2018 23069 FX TX Inter/Gabrielle Or Sub Chanteric Femoral FX Completed W/Implant 03/10/2018 54726 ECHO Transthorasic Realtime 2D W Doppler & Color Flow Completed Hosp 12/17/2017 62845 Nerve Conduction 13+ Studies Completed 12/17/2017 11358 Needle Electromyography Complete, Five Or More Muscles Completed Studied 08/25/2017 [id number] Bone Mineral Density Test Completed 01/24/2009 28361 EKG Tracing & Interpretation Completed 01/19/2009 22682 Holter Monitor Interpretation Completed 03/27/2008 54495 Color Doppler Completed 03/27/2008 12861 Pulse Doppler & Continuous Wave Completed 03/27/2008 05964 Echocardiogram Completed 03/27/2008 90021 ECHO Transthoracic, Real-Time 2D With Doppler And Completed Color Flow 03/24/2008 27796 ECHO Stress Test Incl Perf Contiuous ekg Monitoring Completed W/Phys Superv 03/24/2008 43176 ECHO/Stress Completed 03/24/2008 40906 ECHO/Stress Completed 03/24/2008 66891 Stress Test Completed 03/24/2008 13145 Stress Test Completed 03/09/2008 28615 EKG Tracing & Interpretation Completed 02/29/2008 57006 Holter Monitor Interpretation Completed Encounters Type Date Location Provider Dx Diagnosis Office Visit 08/16/2018 Orthopedic Services Lester Brice MD R60.0 Localized edema 1:15p Of C.M.A. S82.852D Displ trimalleol fx l low leg, subs for clos fx w routn heal M84.371D Stress fracture, right ankle, subs for fx w routn heal Office Visit 07/26/2018 12:15p Pulmonology And Yaneth R09.82 Postnasal drip Sleep Services Of MD Kelvin [employer] Z01.811 Encounter for preprocedural respiratory examination Z87.891 Personal history of nicotine dependence Office Visit 07/02/2018 Orthopedic Lester Brice S82.852D Displ trimalleol 1:00p Services Of MD darrion jones low leg, C.M.A. subs for clos fx w routn heal M84.371D Stress fracture, right ankle, subs for fx w routn heal Office Visit 06/22/2018 Surgical Dione eLe MD G89.18 Other acute 2:15p Associates Of postprocedural pain [facility] Office Visit 06/21/2018 Wound Care Shayna K91.1 Postgastric surgery 1:15p Center [facility] [place] G Da Silva, RN, syndromes SUSTAINABILITY COACH-BC E44.0 Moderate protein-calorie malnutrition L89.154 Pressure ulcer of sacral region, stage 4 Office Visit 06/14/2018 Orthopedic Lester Brice S82.852A Displaced 2:30p Services Of MD red C.M.A. fracture of left lower leg, init M84.371A Stress fracture, right ankle, initial encounter for fracture Office Visit 06/07/2018 Orthopedic Lester Brice S82.852A Displaced 11:15a Services Of MD neda Chow. fracture of left lower leg, init M84.371A Stress fracture, right ankle, initial encounter for fracture Office Visit 05/24/2018 2:30p Wound Care Shayna Da Silva L89.154 Pressure ulcer [facility] [place] G RN, SUSTAINABILITY COACH-BC of sacral region, stage 4 B95.4 Oth streptococcus as the cause of diseases classd elswhr E44.0 Moderate protein-calorie malnutrition Z68.1 Body mass index (BMI) 19.9 or less, adult Office Visit 05/24/2018 [facility] Lloyd Reynolds E44.0 Moderate 4:00p For Infectious Dayanna Mace protein-calorie Diseases malnutrition L89.150 Pressure ulcer of sacral region, unstageable Office Visit 05/17/2018 1:30p Wound Care Shayna Da Silva L89.154 Pressure ulcer [facility] [place] SAV AARIZA, SUSTAINABILITY COACH-BC of sacral region, stage 4 E44.0 Moderate protein-calorie malnutrition B95.4 Oth streptococcus as the cause of diseases classd elswhr L59.8 Oth disrd of the skin, subcu related to radiation Office Visit 05/10/2018 12:45p Wound Care Shayna Da Silva L89.154 Pressure ulcer [facility] [place] SAV ARAIZA, SUSTAINABILITY COACH-BC of sacral region, stage 4 E46 Unspecified protein-calorie malnutrition R53.1 Weakness Z68.1 Body mass index (BMI) 19.9 or less, adult Office Visit 03/27/2018 11:03a [facility] Martin Nam, S72.001A Fracture of unsp DO part of neck of right femur, init K63.1 Perforation of intestine (nontraumatic) K70.31 Alcoholic cirrhosis of liver with ascites Office Visit 03/26/2018 11:03a [facility] Martin Nam DO R65.21 Severe sepsis with septic shock J96.01 Acute respiratory failure with hypoxia K65.9 Peritonitis, unspecified E87.70 Fluid overload, unspecified Office Visit 03/25/2018 11:02a [facility] Lesly Martinez, R65.21 Severe sepsis MD with septic shock J96.01 Acute respiratory failure with hypoxia K65.9 Peritonitis, unspecified K70.31 Alcoholic cirrhosis of liver with ascites B37.3 Candidiasis of vulva and vagina N39.0 Urinary tract infection, site not specified B96.20 Unsp Escherichia coli as the cause of diseases classd elswhr Office Visit 03/24/2018 10:00a Wound Care Jayleen Roberts L89.152 Pressure ulcer [facility] [place] Ediwn, 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, 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 E43 Unspecified severe protein-calorie malnutrition Office Visit 03/24/2018 11:02a [facility] Miriam Hernandez.21 Severe sepsis with septic shock J96.01 Acute respiratory failure with hypoxia E87.70 Fluid overload, unspecified K70.31 Alcoholic cirrhosis of liver with ascites Office Visit 03/23/2018 11:02a [facility] Lesly J96.01 Acute respiratory MD Juan failure with hypoxia E87.70 Fluid overload, unspecified K63.1 Perforation of intestine (nontraumatic) Office Visit 03/22/2018 11:01a [facility] Miriam Hernandez.21 Severe sepsis with septic shock J96.01 Acute respiratory failure with hypoxia K63.1 Perforation of intestine (nontraumatic) Office Visit 03/21/2018 11:00a [facility]ists Angela Hood.Daren Gardiner MD unspecified J96.01 Acute respiratory failure with hypoxia J81.0 Acute pulmonary edema B37.3 Candidiasis of vulva and vagina N39.0 Urinary tract infection, site not specified B96.20 Unsp Escherichia coli as the cause of diseases classd elswhr D64.9 Anemia, unspecified S72.001A Fracture of unsp part of neck of right femur, init Office Visit 03/20/2018 11:00a [facility] Angela Hood.Daren Gardiner MD unspecified J96.01 Acute respiratory failure with hypoxia J81.0 Acute pulmonary edema D64.9 Anemia, unspecified S72.001A Fracture of unsp part of neck of right femur, init N39.0 Urinary tract infection, site not specified B96.20 Unsp Escherichia coli as the cause of diseases classd elswhr R62.7 Adult failure to thrive Office Visit 03/19/2018 Surgical Dione Lee MD K63.1 Perforation of 7:00a [facility] [employer] intestine (nontraumatic) Office Visit 03/19/2018 [facility] J96.01 Acute respiratory 10:59a su Duncan M.D. failure with Hospitalists hypoxia S72.001A Fracture of unsp part of neck of right femur, init K70.10 Alcoholic hepatitis without ascites D64.9 Anemia, unspecified E43 Unspecified severe protein-calorie malnutrition G60.3 Idiopathic progressive neuropathy N39.0 Urinary tract infection, site not specified Office Visit 03/19/2018 10:59a [facility] Jose Frank, K65.9 Peritonitis, unspecified J96.01 Acute respiratory failure with hypoxia J81.0 Acute pulmonary edema D64.9 Anemia, unspecified S72.141A Displaced intertrochanteric fracture of right femur, init N39.0 Urinary tract infection, site not specified B96.20 Unsp Escherichia coli as the cause of diseases classd elswhr R62.7 Adult failure to thrive Office Visit 03/18/2018 [facility] Windy, J96.01 Acute respiratory 10:59a su Duncan M.D. failure with Hospitalists hypoxia S72.001A Fracture of unsp part of neck of right femur, init D64.9 Anemia, unspecified E43 Unspecified severe protein-calorie malnutrition R62.7 Adult failure to thrive N39.0 Urinary tract infection, site not specified G60.3 Idiopathic progressive neuropathy Office Visit 03/17/2018 [facility] Windy, J96.01 Acute respiratory 10:58a su Duncan M.D. 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 E43 Unspecified severe protein-calorie malnutrition Office Visit 03/16/2018 [facility] Landry Reynolds S72.001A Fracture of 10:58a Asssu villar M.D.,FACP unsp part of Hospitalists neck of right femur, init K70.10 Alcoholic hepatitis without ascites D64.9 Anemia, unspecified R00.0 Tachycardia, unspecified Office Visit 03/15/2018 [facility] Landry Reynolds S72.001A Fracture of 10:57a su Duncan M.D.,FACP unsp part of Hospitalists neck of right femur, init K70.10 Alcoholic hepatitis without ascites D64.9 Anemia, unspecified R62.7 Adult failure to thrive Office Visit 03/14/2018 [facility] S72.001A Fracture of 10:57a su Duncan MD unsp part of Hospitalists neck of right femur, init D64.9 Anemia, unspecified E43 Unspecified severe protein-calorie malnutrition F10.20 Alcohol dependence, uncomplicated G60.3 Idiopathic progressive neuropathy Z85.048 Prsnl hx of malig neoplm of rectum, rectosig junct, and anus Office Visit 03/13/2018 [facility] S72.141A Displaced 2:13p Services Of Dayanna Lopez intertrochanteric C.M.A. fracture of right femur, init W19.xxxA Unspecified fall, initial encounter R78.81 Bacteremia Office Visit 03/13/2018 [facility] S72.001A Fracture of 10:57a su Duncan MD unsp part of Hospitalists neck of right femur, init E43 Unspecified severe protein-calorie malnutrition G60.3 Idiopathic progressive neuropathy D64.9 Anemia, unspecified F10.20 Alcohol dependence, uncomplicated R62.7 Adult failure to thrive Z85.048 Prsnl hx of malig neoplm of rectum, rectosig junct, and anus Office 03/12/2018 [facility] S72.141A Displaced Visit 2:12p Services Of nikolai Chavezrochanteric C.M.A. RPA-C fracture of right femur, init Office 03/12/2018 [facility] Lulu S72.001A Fracture of unsp part Visit 10:56a su Duncan DO of neck of right Hospitalists femur, init R78.81 Bacteremia E43 Unspecified severe protein-calorie malnutrition D64.9 Anemia, unspecified G60.3 Idiopathic progressive neuropathy Z85.048 Prsnl hx of malig neoplm of rectum, rectosig junct, and anus Office Visit 03/11/2018 10:56a Palliative Care Marti S72.001A Fracture of Services Of Jorden Eden MD unsp part of neck of right femur, init D64.9 Anemia, unspecified E46 Unspecified protein-calorie malnutrition Office Visit 03/11/2018 10:56a [facility] Morris S72.001A Fracture of Assoc,su Krishnamurthy M.D. unsp part of Hospitalists neck of right femur, init F10.20 Alcohol dependence, uncomplicated K70.10 Alcoholic hepatitis without ascites E43 Unspecified severe protein-calorie malnutrition Office Visit 03/11/2018 [facility] Rita S72.141A Displaced 2:11p Services Of SANDRA Sun intertrochanteric C.M.A. fracture of right femur, init R78.81 Bacteremia Office Visit 03/10/2018 10:55a [facility] Lissette Thomas S72.001A Fracture of Asssu villar MD unsp part of Hospitalists neck of right femur, init D64.9 Anemia, unspecified G60.3 Idiopathic progressive neuropathy F10.20 Alcohol dependence, uncomplicated Office Visit 03/10/2018 8:15a Wound Care Jayleen Roberts L89.152 Pressure ulcer [facility] [place] MELISSA Pineda of sacral region, stage 2 S80.211A Abrasion, right knee, initial encounter S80.212A Abrasion, left knee, initial encounter E43 Unspecified severe protein-calorie malnutrition Office 03/10/2018 [facility] G62.9 Polyneuropathy, Visit 7:00a Clinic MD Mina unspecified Z79.52 [facility] (current) use of systemic steroids Z79.899 Other retirement (current) drug therapy Z92.21 Personal history of antineoplastic chemotherapy Office 03/10/2018 [facility] Lester Brice S72.141A Displaced Visit 10:28a Services Of intertrochanteric C.M.A. fracture of right femur, init W19.xxxA Unspecified fall, initial encounter Office Visit 03/09/2018 10:54a [facility] Jaz S72.001A Fracture of Assoc,pc Rooth, DO unsp part of Hospitalists neck of right femur, init E43 Unspecified severe protein-calorie malnutrition R53.1 Weakness D64.9 Anemia, unspecified R41.0 Disorientation, unspecified W19.xxxA Unspecified fall, initial encounter Office 01/26/2018 [facility] Ramses French Z92.21 Personal history Visit 10:15a Clinic Dayanna Schwartz of antineoplastic chemotherapy G62.9 Polyneuropathy, unspecified [facility] 9:42a Assocsu M.D. abdominal pain Hospitalists K86.1 Other chronic pancreatitis G60.3 Idiopathic progressive neuropathy Office Visit 01/14/2018 [facility] K86.1 Other chronic 9:42a Assoc,su Barr M.D. pancreatitis Hospitalists G60.3 Idiopathic progressive neuropathy Office Visit 01/13/2018 [facility] Jalil R10.9 Unspecified 9:42a Assoc,su Glez N.PNidhi abdominal pain Hospitalists T45.1x5A Adverse effect of antineoplastic and immunosup drugs, init Office Visit 01/11/2018 [facility] Nicole R10.9 Unspecified 9:30a Assocsu NP abdominal pain Hospitalists E83.42 Hypomagnesemia Office Visit 01/06/2018 [place] Ramses French G62.9 Polyneuropathy, 12:00p Neurologic Dayanna Schwartz unspecified Services Of [facility] R20.0 Anesthesia of skin Z92.21 Personal history of antineoplastic chemotherapy Z85.048 Prsnl hx of malig neoplm of rectum, rectosig junct, and anus Office Visit 12/17/2017 8:38a [facility] Ana Luisa Ricketts, F41.9 Anxiety disorder, Assoc,su EPSTEIN unspecified Hospitalists G89.4 Chronic pain syndrome Office 12/17/2017 [facility] G62.9 Polyneuropathy, Visit 7:00a Clinic MD Mina unspecified Z85.048 Prsnl hx of malig neoplm of rectum, rectosig junct, and anus Z92.21 Personal history of antineoplastic chemotherapy Office 12/16/2017 [facility] G62.9 Polyneuropathy, Visit 7:00a Clinic MD Mina unspecified Z85.048 Prsnl hx of malig neoplm of rectum, rectosig junct, and anus Z92.21 Personal history of antineoplastic chemotherapy Office Visit 12/15/2017 10:00a [place] [facility] Ramses French R20.8 Other disturbances Services Of Jorden Schwartz M.D. 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 of skin sensation E53.9 Vitamin B deficiency, unspecified M81.0 Age-related osteoporosis w/o current pathological fracture R74.8 Abnormal levels of other serum enzymes Office Visit 09/08/2017 3:40p Rheumatology Johny M81.0 Age-related Services Of Jorden Carbone M.D. [...] levels of other serum enzymes Office 10/31/2015 [facility] K85.2 Alcohol induced Visit 12:37p Assoc,SANDRA Orta acute Hospitalists pancreatitis C20 Malignant neoplasm of rectum F10.10 Alcohol abuse, uncomplicated F41.9 Anxiety disorder, unspecified [facility] K[facility].2 Alcohol induced Visit 12:35p Assoc,SANDRA Orta acute Hospitalists pancreatitis C20 Malignant neoplasm of rectum F10.10 Alcohol abuse, uncomplicated F41.9 Anxiety disorder, unspecified Office [facility] K85.2 Alcohol induced Visit 12:34p Assoc,SANDRA Orta acute Hospitalists pancreatitis C20 Malignant neoplasm of rectum F10.10 Alcohol abuse, uncomplicated F41.9 Anxiety disorder, unspecified [facility] K85.2 Alcohol induced 12:32p su Duncan II, M.D. acute Hospitalists pancreatitis C20 Malignant neoplasm of rectum F10.10 Alcohol abuse, uncomplicated F41.9 Anxiety disorder, unspecified Office Visit 01/24/2009 9:20a [place] [facility] Qutaybeh S. 785.1 Palpitations Dayanna Garber 427.0 PSVT Paroxysmal Supraventricular Tachycardia 794.31 Electrocardiogram (ECG) (EKG) Abnormal Office Visit 06/30/2008 3:10p [place] [facility] Qutaybeh S. 785.1 Palpitations Dayanna Garber 427.0 PSVT Paroxysmal Supraventricular Tachycardia Office Visit 04/06/2008 4:00p [place] [facility] Qutaybeh S. 785.1 Palpitations Dayanna Garber 427.0 PSVT Paroxysmal Supraventricular Tachycardia Office Visit 03/09/2008 9:40a [place] [facility] Qutaybeh S. 785.1 Palpitations Shirlene MNidhiDNidhi 427.0 PSVT Paroxysmal Supraventricular Tachycardia 794.31 Electrocardiogram (ECG) (EKG) Abnormal Plan of Treatment Future Appointment(s):09/01/2018 3:30 pm - Lester rBice MD at [facility]08/27/2018 3:00 pm - Wero Zaragoza NP at [facility]3308/16/2018 - Lester Brice, MDR60.0 Localized edemaNew Xrays:VL Lower Ext Veins Left, Ordered: 08/16/18S82.852D Displaced trimalleolar fracture of left lower leg, subsequenNew Therapy:Physical TherapyFollow up:Follow Up: 2 hqpuoD05.371D Stress fracture, right ankle, subsequent encounter for fract
--- OUTSIDE RECORDS SUMMARY | 2018-08-26 22:05 | XMS REPORT | Continuity of Care Document ---
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 Payers Date Identification Numbers Payment Provider Subscriber Policy Number: [id number] Alex Mcrae Group Number: [id number] [id number] PayID: [id number] [place] [address] Problems Active Problems Provider Date Adenocarcinoma of rectum Kyler Post MD Onset: 03/14/2016 Liver function tests abnormal Ally Gudino PA-C Onset: 05/06/2017 Cyst and pseudocyst of pancreas Ally Gudino PA-C Onset: 05/06/2017 Social History Type Date Description Comments Sex Unknown ETOH Use Currently consumes alcohol Tobacco Use Start: Unknown End: Unknown Patient is a former smoker Smoking Status Reviewed: 08/20/18 Patient is a former smoker Allergies, Adverse Reactions, Alerts Description No Known Drug Allergies Medications Active Medications SIG Qnty Indications Ordering Date Provider Cholestyramine use 1 packet 60units Annita 08/20/2018 4gm Packet once to twice MD Katarzyna daily Creon Use 1 capsule by 90caps Annita 08/20/2018 [id number] Caps mouth with each MD Katarzyna Part meal. Famotidine 1 by mouth twice 60tabs Ally Nahs 03/14/2016 40mg Tablets a day TATI Gudino Lorazepam Atilio Harry, 1mg Tablets Percocet 1 tablet by Unknown 5-325mg Tablets mouth every 6 hours as needed pain Gabapentin take 1 capsule Unknown 300mg Capsules by mouth twice a day for 1 week Then Take 1 Capsule Three Times A Day Fentanyl apply 1 patch Unknown 25mcg/HR Patches and replace 72HR every 72 hours Oxycodone HCL take 1 tablet by Unknown 10mg mouth every 4 Tablets hours as directed as Needed For Severe Pain maximum daily dose of 6 History Medications Creon take two by mouth 180caps K86.3 Ally L. 04/06/2017 - 17935Memw Caps before 3 major TATI Gudino 11/08/2017 DR Chapman meals of the day Suprep Bowel Prep as directed 1units Jeanine Mina, 01/15/2017 - Kit [facility] 04/06/2017 17.5-3.13-1.6GM/180M L Solution Hydrocodone 1 by mouth every 8 30tabs R93.3 Jeanine Mina, 12/24/2016 - Bitartrate/Acetamino hour as needed [facility] 04/06/2017 phen pain 5-300mg Tablets Hydrocodone 1 by mouth every 8 30tabs Jeanine Mina, 12/24/2016 - Bitartrate/Acetamino hour as needed [facility] 04/06/2017 phen pain 5-300mg Tablets Hydrocodone 1 by mouth every 8 30tabs K85.90 Jeanine Mina, 12/15/2016 - Bitartrate/Acetamino hour as needed [facility] 12/16/2016 phen pain 5-300mg Tablets Colyte With Flavor by mouth as 4000ml Ally Nash 11/17/2016 - Packs directed TATI Gudino 12/10/2016 240gm Solution Rec Anusol-HC 1 suppository by 20units Jeanine Mina, 01/27/2012 - 25mg way of rectum [facility] 11/19/2015 Suppository twice a day Oxycodone/Acetaminop Atilio Harry, - deion EPSTEIN 11/19/2015 5-325mg Tablets Nortriptyline HCL Sameer Moscoso, - 11/19/2015 10mg Capsules Hydrocodone/Acetamin Del Ronquillo - ophen , DPM 11/19/2015 5-325mg Tablets Diazepam Unknown - 5mg Tablets 11/19/2015 Oxycodone HCL ER Unknown - 10mg 08/19/2018 Tab ER 12H Abuse-Det Nystatin swish and Spit 6 Unknown - milliliter every 6 08/19/2018 111416Ijuw/ML hours for 10 days Suspension Ondansetron HCL take 1 tablet by Unknown - 4mg mouth every 6 08/19/2018 Tablets hours as Needed For Nausea Vital Signs Date Vital Result Comment 08/20/2018 4:02pm Height 64 inches 5'4" Weight 95.00 lb BP Systolic 88 mmHg BP Diastolic 58 mmHg BMI (Body Mass Index) 16.3 kg/m2 02/26/2018 3:50pm Height 64 inches 5'4" Weight [...] Facility Test Result H/L Range Note Xray 03/21/2018 [facility] Radiology Cta Chest <pending> Xray 03/19/2018 [facility] Radiology Chest Ap Or <pending> Port Laboratory test 02/26/2018 [facility] Vitamin D Total 57.8 ng/mL High 20-50 1, 2 finding 25(Oh) Miscellaneous Test See Comment 3 Comp Metabolic Panel 02/26/2018 [facility] Sodium 136 mmol/L N 135-145 Potassium 3.8 [...] Egfr Non- 152.0 >60 Egfr 183.9 >60 4 CBC Auto Diff 02/26/2018 [facility] White Blood Count 7.3 10^3/uL N 3.5-10.8 Red Blood Count 3.09 10^6/uL Low 4.00-5.40 Hemoglobin 11.6 g/dL Low 12.0-16.0 Hematocrit 33 % Low 35-47 Mean Corpuscular Volume 107 fL High 80-97 5 Mean Corpuscular Hemoglobin 38 pg High 27-31 [...] % Nucleated Red Blood Cells % 0.5 Inr/Protime 02/26/2018 [facility] Inr 1.28 High 0.77-1.02 Laboratory test finding 02/26/2018 [facility] Inr <pending> Vitamin D Total 25(Oh) <pending> Miscellaneous Test <pending> Laboratory test finding 02/16/2018 [facility] Ceruloplasmin 24.5 mg/dL 6 Tissue Transglutamianse Iga AB <1.2 U/mL 7 Immunoglobulin A (Iga) 346 mg/dL 61 - 356 8 Anti Nuclear Antibody 0.7 U 9 Smooth Muscle Antibody Negative Negative 10 Mitochondrial AB AMA M2 Igg 0.1 U Abnormal 11 Alpha 1 Antitrypsin Phenotypin 02/16/2018 [facility] A1a Phenotype MM bands 12 Alpha 1 Antitrypsin A1a 189 mg/dL 100 - 190 13 Hepatitis Acute Panel 02/16/2018 [facility] Hepatitis B Surface Nonreactive Nonreactive Antigen Hepatitis B Core IgM Nonreactive Nonreactive Hepatitis A AB IgM Nonreactive Nonreactive HCV Index 0.0 Index Hepatitis C Antibody Nonreactive Nonreactive Laboratory test finding 02/16/2018 [facility] Ferritin 421.9 ng/mL High 11-307 Iron & Iron Binding Capacity 02/16/2018 [facility] Iron 116 g/dL N 50-212 Unsaturated Iron Binding < 124 g/dL Total Iron Binding Capacity 139 g/dL Low 250-450 Transferrin 99 mg/dL Low 203-362 % Iron Saturation 83 % High 15-55 Comp Metabolic Panel 02/16/2018 [facility] Sodium 132 mmol/L Low 135-145 Chloride 87 [...] Egfr Non- 164.9 >60 Egfr 199.5 >60 14 Potassium 2.7 mmol/L Low 3.5-5.0 15 Anion Gap 8 mmol/L N 2-11 Inr/Protime 02/16/2018 [facility] Inr 1.23 High 0.77-1.02 CBC Auto Diff 02/16/2018 [facility] White Blood Count 4.1 10^3/uL N 3.5-10.8 [...] 02/05/2018 [facility] Z#Other <pending> Muscle [address] [facility] [place] [address] [phone] Laboratory test 02/05/2018 [facility] Ceruloplasmin < pending> finding [address] [place] [address] [phone] A-1 Antitrypsin Phenotype <pending> Celiac 2! 02/05/2018 [facility] Immunoglobulin A (Iga) < pending> [address] [place] [address] [phone] Transglutaminase AB Iga <pending> Hepatitis A,B,C, 02/05/2018 [facility] Hepatitis A AB < pending> Panel [address] [facility] [place] [address] [phone] Hepatitis A Igm AB QN Ser Eia <pending> Hepatitis B Surface AB <pending> Hepatitis B Core AB Tot Ser QL <pending> Laboratory test 02/05/2018 [facility] Mitochondrial < pending> finding [address] [facility] [place] [address] [phone] Kasey 02/05/2018 [facility] Misc Test - Put <pending> Titer/Pattern [address] [facility] [place] [address] [phone] Iron/Uibc/Tibc/ 02/05/2018 [facility] Iron-Total <pending > 25-1 %Sat [address] [facility] g/dL 45 [place] [address] [phone] Iron-Uibc <pending> g/dL 90-340 Iron Binding Capacity Mass/Vol <pending> 245-400 % Iron Saturation <pending> g/dL 10-45 Iron Deficiency 02/05/2018 [facility] Ferritin <pending> 24-250 Iron,Tibc,Ferr [address] [facility] Ser/Plas ng/[place] [address] Mass/Vol(!) [phone] Laboratory test 02/05/2018 [facility] Inr(!) <pending> finding [address] [place], [place] [address] [phone] CMP(!) 02/05/2018 [facility] Sodium(!) <pending> 134- [address] [place] [address] mEq/L [place], [place] [address] [phone] Potassium(!) <pending> mEq/L 3.6-5.5 Chloride Serum/Plasma(!) <pending> [...] Associates White <pending> 4.8- 10.8 Differential(!) [address] [facility] Blood 3/[place] [address] Count Ser [phone] Auto CNT RBC Red Blood Count <pending> X106/UL 4.20-6.20 Hemoglobin Blood <pending> g/dL 12.0-18.0 Hematocrit <pending> % 35-52 MCV (Corpuscular Volume) <pending> FL 79-97 MCH (Corpuscular Hemoglobin) <pending> pg 27-31 MCHC (Corpuscular Hemog Conc) <pending> g/dL 32.0-36.0 RDW <pending> % 10.5-15.0 Platelet Count Blood Auto CNT <pending> X103/UL 150-450 MPV <pending> FL 7.4-10.4 Lymph% <pending> % 20.0-45.0 Morrow% <pending> % 1.0-9.0 Neutrophil % <pending> % 38.0-83.0 Absolute Lymphocytes <pending> X103/UL 1.0-4.8 Absolute Monocytes <pending> X103/UL 0.0-0.8 Absolute Neutrophils <pending> X103/UL 1.5-7.7 Liver 05/06/2017 [facility] Albumin 2.9 g/dL Low 3.5- 5.2 Function [address] [facility] Serum/Plasma(!) Panel(!) [place] [address] [phone] Alkaline Phosphatase(!) 210 U/L High 39-117 Bilirubin Direct Mass/Vol(!) 0.1 mg/dL 0.0-0.6 Bilirubin Total Mass/Vol 0.4 mg/dL 0.2-1.3 Ast - Sgot 39 U/L High 5-34 Alt - SGPT 20 U/L 10-40 Total Protein 5.5 g/dL Low 6.2-8.1 Liver 04/06/2017 [facility] Albumin 2.8 g/dL Low 3.5- 5.2 Function [address] [facility] Serum/Plasma(!) Panel(!) [place] [address] [phone] Alkaline Phosphatase(!) 211 U/L High 39-117 Bilirubin Direct Mass/Vol(!) 0.2 mg/dL 0.0-0.6 Bilirubin Total Mass/Vol 0.4 mg/dL 0.2-1.3 Ast - Sgot 35 U/L High 5-34 Alt - SGPT 20 U/L 10-40 Total Protein 5.1 g/dL Low 6.2-8.1 Laboratory 04/06/2017 [facility] Amylase(!) 48 U/L 25- 114 test finding [address] [place] [address] [phone] Laboratory 04/06/2017 [facility] Lipase 41 U/L N 11.0-82.0 16, test finding 17 Laboratory 01/21/2017 [facility] Surgical SEE RESULT 18 test finding Interface BELOW Order Laboratory 12/15/2016 [facility] Lipase 22 U/L N 11.0-82.0 19 test finding Igg Subclasses 12/15/2016 [facility] Total IgG 1080 mg/dL N 767 - 1590 Immunoglobulin G1 794 mg/dL N 341 - 894 Immunoglobulin G2 159 mg/dL Abnormal 171 - 632 Immunoglobulin G3 57.0 mg/dL N 20 Immunoglobulin G4 27.9 mg/dL N 21 CBC W/Auto 12/15/2016 [facility] White 10.2 3/UL 4.8- 10.8 Differential(!) [address] [facility] [place] [address] Count Ser [phone] Auto CNT RBC Red Blood Count 3.93 X106/UL Low 4.20-6.20 Hemoglobin Blood 15.0 g/dL 12.0-18.0 Hematocrit 47.0 % 35-52 MCV (Corpuscular Volume) 119.7 FL High 79-97 MCH (Corpuscular Hemoglobin) 38.3 pg High 27-31 MCHC (Corpuscular Hemog Conc) 32.0 g/dL 32.0-36.0 RDW 16.6 % High 10.5-15.0 Platelet Count Blood Auto CNT 313 X103/UL 150-450 MPV 6.8 FL Low 7.4-10.4 Lymph% 24.4 % 20.0-45.0 Morrow% 12.2 % High 1.0-9.0 Neutrophil % 63.4 % 38.0-83.0 Absolute Lymphocytes 2.5 X103/UL 1.0-4.8 Absolute Monocytes 1.2 X103/UL High 0.0-0.8 Absolute Neutrophils 6.5 X103/UL 1.5-7.7 CMP(!) 12/15/2016 [facility] Sodium(!) 132 mEq/L Low 134 -149 [address] [place] [address] [phone] Potassium(!) 4.6 mEq/L 3.6-5.5 Chloride Serum/Plasma(!) 95 [...] Amylase(!) 13 U/L Low 25-114 finding [address] [place] [address] [phone] Lipid Panel(!) 12/15/2016 [facility] Cholesterol [phone] [address] [facility] Total Mass/Vol mg/[place] [address] [phone] HDL Cholesterol Mol/Vol 82 30-85 Triglycerides Ser/Plas Mass/VL 114 mg/dL 30-150 LDL Cholesterol Mass/Vol(!) 48 mg/dL 0-130 CBC Auto Diff 12/10/2016 [facility] White Blood Count 8.4 10^3/uL N 3.5-10.8 Red Blood Count 3.22 10^6/uL Low 4.0-5.4 Hemoglobin 12.4 g/dL N 12.0-16.0 Hematocrit 36 % N 35-47 Mean Corpuscular Volume 113 fL High 80-97 22 Mean Corpuscular Hemoglobin 39 pg High 27-31 [...] % 0.1 N Comp Metabolic Panel 12/10/2016 [facility] Sodium 131 mmol/L Low 133-145 Potassium 3.7 [...] 111.4 N >60 Egfr 143.3 N >60 23 Laboratory test finding 12/10/2016 [facility] Amylase 27 U/L Low 29-103 Lipase 125 U/L High 11.0-82.0 Cell Morphology 12/10/2016 [facility] Macrocytosis 2+ N Xray 11/05/2016 [facility] Radiology MRI Abdomen W/Wo <pendin g> Xray 09/29/2016 [facility] Radiology CT Chest/Abd/Pel W <pendin g> Liver Function 08/07/2016 [facility] Albumin 2.8 Low 3.5 -5 Panel(!) [address] [facility] Serum/Plasma(!) g/dL .2 [place] [address] [phone] Alkaline Phosphatase(!) 185 U/L High 39-117 Bilirubin Direct Mass/Vol(!) 0.2 mg/dL 0.0-0.6 Bilirubin Total Mass/Vol 0.5 mg/dL 0.2-1.3 Ast - Sgot 42 U/L High 5-34 Alt - SGPT 29 U/L 10-40 Total Protein 5.1 g/dL Low 6.2-8.1 Liver Function Panel 06/05/2016 [facility] Total Protein 5.5 g/dL Low 6.4-8.9 Albumin 2.8 g/dL Low 3.2-5.2 Globulin 2.7 g/dL N 2-4 Albumin/Globulin Ratio 1.0 N 1-3 Total Bilirubin 0.50 mg/dL N 0.2-1.0 Direct Bilirubin 0.20 mg/dL High 0.03-0.18 Indirect Bilirubin 0.3 mg/dL N 0.3-1.0 Alkaline Phosphatase 170 U/L High 34-104 Alt 27 U/L N 7-52 Ast 45 U/L High 13-39 CBC Auto Diff 06/05/2016 [facility] White Blood Count 12.2 10^3/uL High 3.5- [...] Cells % 0.1 N Laboratory test 04/02/2016 [facility] Clotest SEE RESULT 24 finding BELOW CBC W/Auto 03/14/2016 [facility] White Blood 11.9 3/UL High 4.8-1 Differential(!) [address] Count Ser 0.8 [place] [address] Auto CNT [phone] RBC Red Blood Count 4.02 X106/UL Low 4.20-6.20 Hemoglobin Blood 13.7 g/dL 12.0-18.0 Hematocrit 43.2 % 35-52 MCV (Corpuscular Volume) 107.5 FL High 79-97 MCH (Corpuscular Hemoglobin) 34.1 pg High 27-31 MCHC (Corpuscular Hemog Conc) 31.7 g/dL Low 32.0-36.0 RDW 15.1 % High 10.5-15.0 Platelet Count Blood Auto CNT 250 X103/UL 150-450 MPV 7.5 FL 7.4-10.4 Lymph% 18.3 % Low 20.0-45.0 Morrow% 5.8 % 1.0-9.0 Neutrophil % 75.9 % 38.0-83.0 Absolute Lymphocytes 2.2 X103/UL 1.0-4.8 Absolute Monocytes 0.7 X103/UL 0.0-0.8 Absolute Neutrophils 9.0 X103/UL High 1.5-7.7 Liver 03/14/2016 [facility] Albumin 3.1 g/dL Low 3.5- 5.2 Function [address] [facility] Serum/Plasma(!) Panel(!) [place] [address] [phone] Alkaline Phosphatase(!) 184 U/L High 39-117 Bilirubin Direct Mass/Vol(!) 0.3 mg/dL 0.0-0.6 Bilirubin Total Mass/Vol 0.8 mg/dL 0.2-1.3 Ast - Sgot 32 U/L 5-34 Alt - SGPT 24 U/L 10-40 Total Protein 5.6 g/dL Low 6.2-8.1 Laboratory 03/14/2016 [facility] GGT-Gammaglytamyl 221 U/ L High 8-40 test finding [address] [facility] Trans (!) [place] [address] [phone] CBC W/Auto 01/18/2016 [facility] Blood Count Ser <pendin Differential(! Auto CNT g> ) RBC Red Blood Count <pending> Hemoglobin Blood <pending> Hematocrit <pending> MCV (Corpuscular Volume) <pending> MCH (Corpuscular Hemoglobin) <pending> MCHC (Corpuscular Hemog Conc) <pending> RDW <pending> Platelet Count Blood Auto CNT <pending> MPV <pending> Lymph% <pending> Morrow% <pending> Neutrophil % <pending> Absolute Lymphocytes <pending> Absolute Monocytes <pending> Absolute Neutrophils <pending> Laboratory test finding 12/24/2015 [facility] Mitochondrial AB AMA M2 Igg <0.1 U N 25 Smooth Muscle Antibody Negative N Negative 26 Celiac Panel! 12/24/2015 [facility] Endomysial Abs Negative N Negative 27 Transglutaminase Igg & 12/24/2015 [facility] Tissue Transglutaminase <1.2 U/mL N 28 Iga IgA Ab Tissue Transglutaminase IgG Ab <1.2 U/mL N 29 Anti Gliadin Igg And Iga AB 12/24/2015 [facility] Gliadin IgG <10.0 U N 30 Gliadin IgA <10.0 U N 31 Laboratory test finding 12/07/2015 [facility] Amylase 29 U/L N 29-103 Lipase 73 U/L N 11.0-82.0 Liver Function Panel 12/07/2015 [facility] Total Protein 5.6 g/dL Low 6.4-8.9 Albumin [...] U/L High 11.0-82.0 Liver Function Panel(!) 11/20/2015 [facility] Total Protein 5.8 g/dL Low 6.4- 8.9 Albumin 3.0 g/dL Low 3.2-5.2 Globulin 2.8 g/dL N 2-4 Albumin/Globulin Ratio 1.1 N 1-3 Total Bilirubin 0.40 mg/dL N 0.2-1.0 Direct Bilirubin 0.10 mg/dL N 0.03-0.18 Indirect Bilirubin 0.3 mg/dL N 0.3-1.0 Alkaline Phosphatase 215 U/L High 34-104 Alt 15 U/L N 7-52 Ast 33 U/L N 13-39 CMP(!) 11/07/2015 [facility] Sodium(!) <pending> Potassium(!) <pending> Chloride Serum/Plasma(!) <pending> Carbon Dioxide Ser/Plasm(!) <pending> BUN - Urea Nitrogen(!) <pending> Calcium Ser/Plasma Mass/Vol(!) <pending> Creatinine Serum Mass/Vol(!) <pending> Glucose Serum(!) <pending> Uric Acid Ser/Plas Mass/Vol(!) <pending> BUN/Creatinine Ratio(!) <pending> Albumin Serum/Plasma(!) <pending> Alkaline Phosphatase(!) <pending> Bilirubin Total Mass/Vol(!) <pending> Ast - Sgot <pending> Alt - SGPT <pending> Protein Total <pending> Liver Panel 11/07/2015 [facility] Alkaline [...] Auto CNT <pending> MPV <pending> Lymph% <pending> Morrow% <pending> Neutrophil % <pending> Absolute Lymphocytes <pending> [...] Auto CNT <pending> MPV <pending> Lymph% <pending> Morrow% <pending> Neutrophil % <pending> Absolute Lymphocytes <pending> Absolute Monocytes <pending> Absolute Neutrophils <pending> CMP(!) 10/30/2015 [facility] Sodium(!) <pending> Potassium(!) [...] [facility] Lipase Ser/Plas (!) <pending> finding Xray 10/28/2015 [facility] Radiology Abdomen (Complete) <pending> 2 VWS Xray 10/28/2015 [facility] Radiology CT Abd/Pel W <pending> Xray 10/26/2015 [facility] Radiology US Abdomen Limited <pending> CMP(!) 09/21/2015 [facility] Sodium(!) <pending> Potassium(!) <pending> Chloride Serum/Plasma(!) <pending> Carbon Dioxide Ser/Plasm(!) <pending> BUN - Urea Nitrogen(!) <pending> Calcium Ser/Plasma Mass/Vol(!) <pending> Creatinine Serum Mass/Vol(!) <pending> Glucose Serum(!) <pending> Uric Acid Ser/Plas Mass/Vol(!) <pending> BUN/Creatinine Ratio(!) <pending> Albumin Serum/Plasma(!) <pending> Alkaline Phosphatase(!) <pending> Bilirubin Total Mass/Vol(!) <pending> Ast - Sgot <pending> Alt - SGPT <pending> Protein Total <pending> CBC W/Auto 09/21/2015 [facility] Blood <pending> Differential(!) Count Ser Auto CNT RBC Red Blood Count <pending> Hemoglobin Blood <pending> Hematocrit <pending> MCV (Corpuscular Volume) <pending> MCH (Corpuscular Hemoglobin) <pending> MCHC (Corpuscular Hemog Conc) <pending> RDW <pending> Platelet Count Blood Auto CNT <pending> MPV <pending> Lymph% <pending> Morrow% <pending> Neutrophil % <pending> Absolute Lymphocytes <pending> Absolute Monocytes <pending> Absolute Neutrophils <pending> Surgical Pathology 03/15/2012 [facility] S RUN DATE: 03/17/ <SEE NOTE> 1 [id number] 2 [id number] 3 Hemochromatosis HFE Gene Analysis, Blood RESULT: COMPLEX (SEE RESULT AND INTERPRETATION) Result C282Y: Not detected. H63D: Not detected. Interpretation See Comment This result reduces the risk but does not rule out either a diagnosis of or predisposition for hereditary hemochromatosis (HH). In the [place] population, approximately 5 to 8% of individuals with HH do not have either the p.C282Y or p.H63D mutation. For other ethnicities, the proportion of individuals with HH who do not have either the p.C282Y or p.H63D alteration may differ. This assay does not rule out the presence of other disease-causing mutations in the HFE gene or in other genes associated with hemochromatosis. Genotyping results should be interpreted in the context of clinical findings, family history, and other laboratory testing (e.g. serum transferrin-iron saturation and serum ferritin). Genetic testing and other laboratory testing of an affected family member can determine if this result is of predictive value for this individual. A genetic consultation may be of benefit. ADDITIONAL INFORMATION An online research opportunity called [employer] Reminder), a project of [employer], is available for the recipient of this genetic test. This patient registry collects de-identified genetic and health information to advance the knowledge of genetic variants. [facility] is a collaborator of [employer]. This may not be applicable for all tests. Test results should be interpreted in the context of clinical findings, family history, and other laboratory data. Misinterpretation of results may occur if the information provided is inaccurate or incomplete. Rare polymorphisms exist that could lead to false-negative or false-positive results. If results obtained do not match the clinical findings, additional testing should be considered. Bone Marrow transplants from allogenic donors will interfere with testing. Call [facility] for instructions for testing patients who have received a bone marrow transplant. Multiple in-silico evaluation tools may have been used to assist in the interpretation of these results. Of note, the sensitivity and specificity of these tools for the determination of pathogenicity is currently unvalidated. This test was developed and its performance characteristics determined by [facility] in a manner consistent with CLIA requirements. This test has not been cleared or approved by the U.S. Food and Drug Administration. Specimen WB Whole Blood Method See Comment A multiplex PCR based assay utilizing the [employer] Array platform was used to test for the following three mutations in the HFE gene; C282Y, H63D, and S65C. Because of the minimal effect on iron metabolism associated with the S65C mutation, it is only reported when it is found with the C282Y mutation (i.e. if the patient has the C282Y/S65C genotype). Released By See Comment RESULT: Memo Senior M.D. Test Performed by: [address] [address] 4 Because ethnic data is not always readily [...] 15-29 5 Kidney failure <15 (or dialysis) 5 Adult MCV>105,Warmed at 37 for 30 min, change minimal 6 REFERENCE VALUE 20.0 - 51.0 Test Performed by: [facility] [place] [id number] REFERENCE VALUE <4.0 (Negative) Test Performed by: [place] [id number] Test Performed by: [place] [id number] REFERENCE VALUE <=1.0 (Negative) Test Performed by: [place] [address] 10 ADDITIONAL INFORMATION This test was developed and its performance characteristics determined by [facility] in a manner consistent with CLIA requirements. This test has not been cleared or approved by the U.S. Food and Drug Administration. Test Performed by: [place] [id number] Interpretation: Borderline (0.1-0.3) REFERENCE VALUE <0.1 (Negative) Test Performed by: [place] [address] 12 A single M isoform is detected. In the context of a normal opoqe-[id number] concentration, this is consistent with an MM phenotype. Reviewed by: Nicole Mcdonnell, Ph.D. 13 Test Performed by: [facility] [address] [place] [address] 14 Because ethnic data is not always [...] 5 Kidney failure <15 (or dialysis) 15 Critical Result K:2.7 Called to ZOË at: 14:49:31 by:[email or web address] Read back by:ZOË 16 [id number] 17 [id number] 18 SEE RESULT BELOW Name: BRANT MCRAE : [address]: Kenzie Mays DO Acct: [id number] Unit: [id number] AGE: 47 Location: ENDO Re01/21/17 SEX: F Status: DEP REF SPEC: [id number] NIC: 01/21/17-[address] [facility] [address]: Kenzie Mays DO REQ: [id number] RECD: 01/21/17-5699 STATUS: CHERYL ARMENDARIZ DR: Atilio Harry MD [...] performed at Main Lab DEPARTMENT OF PATHOLOGY, [address] [place] [address] Timbo Brown M.D. Director JEOVANY # [id number] 19 [id number] 20 REFERENCE VALUE 18.4 - 106.0 21 REFERENCE VALUE 2.4 - 121.0 Test Performed by: [address] [id number] 22 Consistent with previous results on 09/29/16. 23 Because ethnic data is not always readily [...] 15-29 5 Kidney failure <15 (or dialysis) 24 SEE RESULT BELOW Name: BRANT MCRAE : [address]: Kyler Post MD Acct: [id number] Unit: [id number] AGE: 46 Location: ENDO Re04/02/16 SEX: F Status: REG REF SPEC: [id number] NIC: 04/02/16-[address] [facility] [address]: Kyler Post MD REQ: [id number] RECD: 04/02/16 STATUS: MELODY ARMENDARIZ DR: Atilio Harry MD _ [facility]: Clotest Procedure Result Reported Site Clotest Final 04/03/16- 0754 ML Clotest Negative * ML - MAIN LAB ([facility]) . END OF REPORT * ML=Testing performed at Main Lab DEPARTMENT OF PATHOLOGY, [address] [place] [address] Timbo Brown M.D. Director JEOVANY # [id number] 25 REFERENCE VALUE <0.1 (Negative) Test Performed by: [facility] [place] [address] Harness Preparer: Louie Pryor II, M.D., Ph.D. 26 ADDITIONAL INFORMATION This test was developed and its performance characteristics determined by [facility] in a manner consistent with CLIA requirements. This test has not been cleared or approved by the U.S. Food and Drug Administration. Test Performed by: [place] [address] Harness Preparer: Louie Pryor II, M.D., Ph.D. 27 Negative in normal individuals. May be negative in dermatitis herpatiformis or celiac disease patients adhering to a gluten free diet. ADDITIONAL INFORMATION Laboratory developed test. Test Performed by: [facility] [place] [address] Harness Preparer: Louie Pryor II, M.D., Ph.D. 28 REFERENCE VALUE <4.0 (Negative) 29 REFERENCE VALUE <6.0 (Negative) Test Performed by: [facility] - [address] [address] Harness Preparer: Louie Pryor II, M.D., Ph.D. 30 REFERENCE VALUE <20.0 (Negative) Test Performed by: [place] [address] Harness Preparer: Louie Pryor II, M.D., Ph.D. 31 REFERENCE VALUE <20.0 (Negative) Procedures Date Code Description Status 04/02/2016 85068 Moderate Sedation Services; Same Phys Intl 15 Mins; PT >=5 Completed Years 04/02/2016 17705 EGD+Biopsy Single Or Multiple Completed 01/04/2014 62683 Colonoscopy Completed 03/15/2012 91189 Colonscopy+Biopsy Completed 12/13/2010 30346 Flexible Sigmoidoscopy; DX; W/Wo Collection Of Spec Completed 12/07/2009 76107 Colonoscopy Completed 02/14/2009 5 Small Balance Write Off Completed 01/15/2009 33446 Colonoscopy Completed 01/31/2008 33738 EGD+Biopsy Single Or Multiple Completed 2008 85482 Colonoscopy W/ Snare RM Of Polyp/Tumor/Lesion Completed 2008 95828 Colonscopy+Biopsy Completed Encounters Type Date Location Provider Dx Diagnosis Office Visit 02/26/2018 [facility] K86.1 Other chronic 3:30p [facility] MD 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 R19.7 Diarrhea, unspecified R13.10 Dysphagia, unspecified R63.4 Abnormal weight loss R62.7 Adult failure to thrive Office 02/05/2018 [facility] K86.1 Other chronic Visit 3:45p [facility] Col[facility] 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 R63.4 Abnormal weight [...] liver function studies Office Visit 04/06/2017 [facility] [place] K86.3 Pseudocyst of 2:30p [facility], pancreas [employer] MA[employer]GEMENT CONSULTANT-C R10.10 Upper abdominal pain, unspecified R63.0 Anorexia Office Visit 12/24/2016 [facility], K86.2 Cyst of 2:00p [facility] [employer] MANAGEMENT CONSULTANT-C pancreas R93.3 Abnormal findings on dx imaging of prt digestive tract Office 12/15/2016 [facility] [place] K85.90 Acute Visit 3:30p [facility], pancreatitis [employer]IOR S[employer] MANAGEMENT CONSULTANT-C without necrosis or infection, unsp Office 12/11/2016 [facility] [place] K85.90 Acute Visit 11:30a [facility], pancreatitis [employer]IOR S[employer] MANAGEMENT CONSULTANT-C without necrosis or infection, unsp R94.5 Abnormal [...] function studies Office Visit 12/24/2015 [facility], R94.5 Abnormal 1:00p [facility] [employer] S[employer] MANAGEMENT CONSULTANT-C results of liver function studies R10.13 Epigastric pain R11.11 Vomiting without nausea Office 11/19/2015 [facility] [place] K85.90 Acute Visit 11:15a [facility], pancreatitis [employer]IOR [employer] MANAGEMENT CONSULTANT-C without necrosis or infection, unsp Office 12/06/2013 [facility] [place] 569.3 Hemorrhage Rectum Visit 1:15p [facility], S[employer]IOR S[employer]Y MANAGEMENT CONSULTANT-C & Anus V10.06 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 Office Visit 01/26/2012 [facility] [place] V10.05 Personal 1:00p [facility], History [employer] MANAGEMENT CONSULTANT-C Malignant Neoplasm Large Intestine 569.3 Hemorrhage Rectum & Anus Office Visit 12/02/2010 2:00p [facility], 787.91 Diarrhea [facility] [employer]Y MANAGEMENT CONSULTANT-C 569.3 Hemorrhage Rectum & Anus
--- OUTSIDE RECORDS SUMMARY | 2018-08-26 22:06 | XMS REPORT | Continuity of Care Document ---
:1970 External Reference #:[id number] Author Name Arin Duarte Care Team Providers Name Role Phone Atilio Harry M.D. Primary Care Physician Unavailable Payers Date Identification Numbers Payment Provider Subscriber Policy Number: [id number] [employer] Radha Mor[employer] Group Number: [id number] [id number] PayID: [id number] [place] [address] Problems Active Problems Provider Date Fracture of unspecified part of neck of right Vita Lopez M.D. Onset: 04/26 femur, subsequent encounter for closed fracture with routine healing Closed trimalleolar fracture Lester Brice MD Onset: 06/07/2018 Stress fracture, right ankle, initial encounter Lester Brice MD Onset: for fracture Family History Date Family Member(s) Observation Comments General Arthritis, Osteo General Arthritis Father Blood Disorder Mother Rheumatoid Arthritis Mother Kidney Disease Maternal Grandfather due to CO () - age 60 Social History Type Date Description Comments Sex Unknown Marital Status Lives With Spouse 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ance Right-handed Tobacco Use Start: Unknown Occasionally Smokes On and off 20 yrs Cigarettes ETOH Use Occasionally consumes wine cooler/beer alcohol 6-7 drinks per week Tobacco Use Start: Unknown End: Patient is a former quit isn 2009 smoked Unknown smoker on/off for 18 yrs 1/2 ppd Smoking Status Reviewed: 08/06/18 Patient is a former quit isn 2009 [...] Lorazepam 2 po daily Unknown 1mg [facility]Burn as directed Unknown Dressing change dressing [...] mg iv in 100 3units G62.9 Ramses SNidhi 01/06/2018 - 1000mg cubic centimeters Dayanna Schwartz 01/18/2018 Solution Rec ns infuse everyday for 3 days Gabapentin take 1 capsule by 45caps R20Ginger Carbone, 10/21/2017 - 100mg mouth at night for M.D. 01/26/2018 Capsules 1 week then 1 by mouth twice daily ongoing Prolia 60 mg sc q6mon 60mg Johny Carbone, 10/05/2017 - 60mg/ml Solution Mira.DNidhi Unknown B12 Fast Dissolve sublingual daily 90tabs Johny Carbone, 08/14/2017 - M.DNidhi Unknown 5000mcg Tablets Dispers Percocet 1 po q4h prn 40tabs Jose Luistaybkennedy S. 01/24/2009 - 5-325mg Dayanna Garber Unknown Tablets Ativan 1 po qd prn 10tabs Jose Luistaybkennedy S. 01/24/2009 - 0.5mg Tablets Dayanna Garber [...] Liquid Lidicaine Mouth Rinse 3-4 X 90tabs Jj S. 03/09/2008 - Tablets Day Dayanna Garber [...] Abuse-Det Creon 1 po qd Unknown - [id number] Caps DR Unknown Part Advil as needed [...] Unknown Vital Signs Date Vital Result Comment 08/06/2018 2:52pm Height 64 inches 5'4" Weight [...] Test Result H/L Range Note Xray 07/27/2018 [facility] Knee Left 1-2 VWS <pending> [address] [place] [address] [phone] Ankles Bilateral <pending> Laboratory test 06/16/2018 [facility] Prealbumin 17 mg/dL Low 18-[address] [place] [address] [phone] C Reactive Protein 2.05 mg/L N <8.01 Laboratory test 06/01/2018 [facility] Prealbumin 10 mg/dL Low 18-38 finding [address] [place] [address] [phone] C Reactive Protein 35.41 mg/L High <8.01 CBC Auto Diff 02/16/2018 [facility] White Blood 4.1 10^3/uL N 3.5-10.[address] [place] [address] [phone] Red Blood Count 3.38 10^6/uL Low 4.00-5.40 [...] Red Blood Cells % 0.1 Inr/Protime 02/16/2018 [facility] Inr 1.23 High 0.77-1.[address] [place] [address] [phone] Comp Metabolic 02/16/2018 [facility] Sodium 132 mmol/L Low 135 -145 Panel [address] [place] [address] [phone] Chloride 87 mmol/L Low 101-111 Co2 Carbon [...] N 2-11 Iron & Iron Binding 02/16/2018 [facility] Iron 116 g/dL N 50 -212 Capacity [address] [place] [address] [phone] Unsaturated Iron Binding < 124 g/dL Total Iron Binding Capacity 139 g/dL Low 250-450 Transferrin 99 mg/dL Low 203-362 % Iron Saturation 83 % High 15-55 Laboratory 02/16/2018 [facility] Ferritin 421.9 ng/mL High 11- 307 test finding [address] [place], [place] [id number] [phone] Hepatitis 02/16/2018 [facility] Hepatitis B Nonreactive Nonreactive Acute Panel [address] [place] [address] Antigen [phone] Hepatitis B Core IgM Nonreactive Nonreactive Hepatitis A AB IgM Nonreactive Nonreactive HCV Index 0.0 Index Hepatitis C Antibody Nonreactive Nonreactive Laboratory test 02/16/2018 [facility] Ceruloplasmin 24.5 mg/dL 3 finding [address] [place] [address] [phone] Tissue Transglutamianse Iga AB <1.2 U/mL 4 Immunoglobulin A (Iga) 346 mg/dL 61 - 356 5 Anti Nuclear Antibody 0.7 U 6 Smooth Muscle Antibody Negative Negative 7 Mitochondrial AB AMA M2 Igg 0.1 U Abnormal 8 Alpha 1 Antitrypsin 02/16/2018 [facility] A1a Phenotype MM bands 9 Phenotypin [address] [place] [address] [phone] Alpha 1 Antitrypsin A1a 189 mg/dL 100 - 190 10 Laboratory test 01/11/2018 [facility] Lactic Acid 1.2 mmol/L N 0.5-2.[address] [place] [address] [phone] CBC Auto Diff 01/11/2018 [facility] White Blood 9.5 10^3/uL N 3.5-10.[address] [place] [address] [phone] Red Blood Count 3.33 10^6/uL Low 4.00-5.40 [...] 8.0 fL N 7.4-10.4 Manual Differential 01/11/2018 [facility] Neutrophil % 89 % [address] [place] [address] [phone] Lymphocytes % 5 % Monocytes % 6 % Macrocytosis 1+ Stomatocytes 1+ Abs Neutrophils 8.5 10^3/uL High 1.5-7.7 Abs Lymphocytes 0.5 10^3/uL Low 1.0-4.8 Abs Monocytes 0.5 10^3/uL N 0-0.8 Comp Metabolic Panel 01/11/2018 [facility] Sodium 129 mmol/L Low 135-145 [address] [place] [address] [phone] Potassium 3.5 mmol/L N 3.5-5.0 Chloride 93 [...] Egfr 200.3 >60 13 Laboratory test 01/11/2018 [facility] Magnesium 1.5 mg/dL Low 1.9-2.[address] [place] [address] [phone] Lipase 86 U/L High 11.0-82.0 C Reactive Protein 12.28 mg/L High <8.01 Urinalysis Profile 01/11/2018 [facility] Urine Color Straw [address] [place] [address] [phone] Urine Appearance Clear Urine Specific [place] 1.003 Low 1.010-1.030 Urine pH 8.0 N 5-9 Urine Urobilinogen Negative Negative Urine Ketones Negative Negative Urine Protein Negative Negative Urine Leukocytes Negative Negative Urine Blood Negative Negative Urine Nitrite Negative Negative Urine Bilirubin Negative Negative Urine Glucose Negative Negative Laboratory test 01/11/2018 [facility] Pathologist (SEE NOTE) 14 finding [address] [facility] [place] [address] [phone] Ganglioside 01/06/2018 [facility] Monosialo GM1 IgG <1:250 <= 1:5 Antibody Panel 101 [facility] Antibody [address] [place] [address] [phone] Monosialo GM1 IgM Antibody <1:250 <=1:1000 Asialo GM1 IgG Antibody <1:250 <=1:4000 Asialo GM1 IgM Antibody <1:250 <=1:4000 Disialo GD1b IgG Antibody <1:250 <=1:1000 Disialo GD1b IgM Antibody <1:250 <=1:1000 15 Laboratory test finding 01/06/2018 [facility] Anti Ssa/Ro 0.8 U [address] [place] [address] [phone] Anti SSB LA <0.2 U 17 Erythrocyte Sed Rate 19 mm/Hr High 0-14 Cyclic Citrullinated Pep Igg <15.6 U 18 Basic Metabolic 12/29/2017 [facility] Sodium 130 mmol/L Low 135-145 Panel [address] [place] [address] [phone] Potassium 4.4 mmol/L N 3.5-5.0 Chloride 95 mmol/L Low 101-111 Co2 Carbon Dioxide 29 mmol/L N 22-32 Anion Gap 6 mmol/L N 2-11 Glucose 138 mg/dL High 70-100 Blood Urea Nitrogen 3 mg/dL Low 6-24 Creatinine 0.48 mg/dL Low 0.51-0.95 BUN/Creatinine Ratio 6.3 Low 8-20 Calcium 8.2 mg/dL Low 8.6-10.3 Egfr Non- 138.0 >60 Egfr 167.0 >60 19 Vitamin B12 10/05/2017 [facility] Vitamin B12 > 1450 High 180- 914 20 And Folate 101 [facility] pg/[place] [address] [phone] Folic Acid (Folate) 15.74 ng/mL >3.99 21 Hla B27 08/25/2017 [facility] Hla B27 Negative [address] [place] [address] [phone] Hla B27 Interp See Comment 23 Laboratory test 08/25/2017 [facility] Mitochondrial AB <0.1 U [address] [place] [address] [phone] Laboratory test 08/25/2017 [facility] Vitamin D, 1,25 75 pg/mL 18-78 25 finding [address] [facility] [place] [place] [address] [phone] Free T4 (Free Thyroxine) 0.81 ng/dL N 0.61-1.12 26 Thyroperoxidase AB 17.72 IU/mL High <9 27 Connective Tissue 08/25/2017 [facility] Anti-Nuclear 0.2 U [address] [place] [address] [phone] Cyclic Citrullinated Peptide <15.6 U 29 Interpretation See Comment 30 CBC Auto Diff 08/07/2017 [facility] White Blood 7.7 10^3/uL N 3.5-10.[address] [place] [address] [phone] Red Blood Count 3.42 10^6/uL Low 4.00-5.40 Hemoglobin 12.6 g/dL N 12.0-16.0 Hematocrit 37 % N 35-47 Mean Corpuscular Volume 107 fL High 80-97 31 Mean Corpuscular Hemoglobin 37 pg High 27-31 [...] Cells % 0 Comp Metabolic Panel 08/07/2017 [facility] Sodium 135 mmol/L N 135-[address] [place] [address] [phone] Potassium 4.1 mmol/L N 3.5-5.0 Chloride 98 [...] Non- 138.0 >60 Egfr 167.0 >60 32 Laboratory 08/07/2017 [facility] Carcinoembryonic 19.0 High 0.1-5.0 33 test finding [address] Antigen Cea ng/[place] [address] [phone] 1 Because ethnic data is not always [...] dialysis) 2 Critical Result K:2.7 Called to [id number] at: 14:49:31 by:[id number] Read back by:[email or web address] REFERENCE VALUE 20.0 - 51.0 Test Performed by: [address] [address] 4 REFERENCE VALUE <4.0 (Negative) Test Performed by: [address] [address] 5 Test Performed by: [address] [address] 6 REFERENCE VALUE <=1.0 (Negative) Test Performed by: [facility] [place] [address] 7 ADDITIONAL INFORMATION This test was developed and its performance characteristics determined by [facility] in a manner consistent with CLIA requirements. This test has not been cleared or approved by the U.S. Food and Drug Administration. Test Performed by: [facility] [place] [address] 8 Interpretation: Borderline (0.1-0.3) REFERENCE VALUE <0.1 (Negative) Test Performed by: [place] [address] 9 A single M isoform is detected. In the context of a normal [id number] concentration, this is consistent with an MM phenotype. Reviewed by: Nicole Mcdonnell, Ph.D. 10 Test Performed by: [place] [address] 11 [facility] Severe Sepsis and Septic Shock [...] clinically warranted. Reviewed by Dr. Brown 15 ADDITIONAL INFORMATION This test was developed and its performance characteristics determined by [facility] in a manner consistent with CLIA requirements. This test has not been cleared or approved by the U.S. Food and Drug Administration. Test Performed by: [facility] - [address] [address] 16 REFERENCE VALUE <1.0 (Negative) Test Performed by: [facility] [email or web address] [place] [address] 17 REFERENCE VALUE <1.0 (Negative) Test Performed by: [facility] - [facility] [email or web address] [place] [address] 18 REFERENCE VALUE <20.0 (Negative) Test Performed by: [facility] [email or web address] [place] [address] 19 Because ethnic data is not always [...] check labs 2 weeks 22 REFERENCE VALUE Not Applicable 23 RESULT: HLA-B27 antigen was not detected. ADDITIONAL INFORMATION Method: Flow Cytometry Performing Laboratory CLIA# [id number] Test Performed by: [facility] [employer] - [address] [address] 24 REFERENCE VALUE <0.1 (Negative) Test Performed by: [facility] [employer] - [address] [address] 25 ADDITIONAL INFORMATION This test was developed and its performance characteristics determined by [facility] in a manner consistent with CLIA requirements. This test has not been cleared or approved by the U.S. Food and Drug Administration. Test Performed by: [facility] [employer] - [facility] [address] [place] [address] 26 Please check labs this week 27 Please check labs this week 28 REFERENCE VALUE <=1.0 (Negative) 29 REFERENCE VALUE <20.0 (Negative) 30 Tests for antibodies to dsDNA and YAA antigens are not performed automatically unless the IVONNE result is > or= 3.0 U. Studies performed at [facility] indicate that positive IVONNE results <3.0 U are rarely accompanied by positive second order tests. Test Performed by: [facility] - [address] [address] 31 Consistent with Previous Results Reported on 04/08/17 32 Because ethnic data is not always [...] 5 Kidney failure <15 (or dialysis) 33 Nonsmokers: < 2.9 ng/mL Some smokers may have elevated CEA, usually <5.0 ng/mL. Serum markers are not specific for malignancy, and values may vary by method. The testing method is an immunoenzymatic assay chartered accountant by [employer] performed on Matt Deborah DXI 600. Do not interpret serum CEA levels as absolute evidence of the presence or the absence of malignant disease. Use serum CEA in conjunction with information from the clinical evaluation of the patient and other diagnostic procedures. Procedures Date Code Description Status 07/26/2018 28358 Removal Devitalization Tissue Wound Less Than Equal 20 Completed Square CM 07/19/2018 17283 Removal Devitalization Tissue Wound Less Than Equal 20 Completed Square CM 07/12/2018 17113 Removal Devitalization Tissue Wound Less Than Equal 20 Completed Square CM 07/06/2018 67474 Debridement Skin,& sq Tissue Completed 07/02/2018 77659 Short Leg Cast Completed 06/28/2018 36900 Removal Devitalization Tissue Wound Less Than Equal 20 Completed Square CM 06/21/2018 87070 Removal Devitalization Tissue Wound Less Than Equal 20 Completed Square CM 06/14/2018 89516 Removal Devitalization Tissue Wound Less Than Equal 20 Completed Square CM 06/14/2018 01827 Short Leg Cast Completed 06/07/2018 68087 Short Leg Cast Completed 06/07/2018 21735 Removal Devitalization Tissue Wound Less Than Equal 20 Completed Square CM 06/01/2018 37726 Debridement Skin,& sq Tissue Completed 05/10/2018 13254 Removal Devitalization Tissue Wound Less Than Equal 20 Completed Square CM 03/27/2018 80164 EKG, Interpretation Only Completed 03/22/2018 61892 Arterial Line Completed 03/22/2018 39159 Insert Non-Tunneled Venous Catether Completed 03/19/2018 01661 Colectomy,Partial Removal Terminal Ileum Completed W/Ileocolostomy 03/19/2018 81554 Colectomy,Partial Removal Terminal Ileum Completed W/Ileocolostomy 03/16/2018 46199 EKG, Interpretation Only Completed 03/15/2018 92997 EKG, Interpretation Only Completed 03/14/2018 08914 FX TX Inter/Gabrielle Or Sub Chanteric Femoral FX Completed W/Implant 03/14/2018 07000 FX TX Inter/Gabrielle Or Sub Chanteric Femoral FX Completed W/Implant 03/14/2018 78413 FX TX Inter/Gabrielle Or Sub Chanteric Femoral FX Completed W/Implant 03/10/2018 40729 ECHO Transthorasic Realtime 2D W Doppler & Color Flow Completed [facility] 12/17/2017 27292 Nerve Conduction 13+ Studies Completed 12/17/2017 70229 Needle Electromyography Complete, Five Or More Muscles Completed Studied 08/25/2017 [id number] Bone Mineral Density Test Completed 01/24/2009 04371 EKG Tracing & Interpretation Completed 01/19/2009 29970 Holter Monitor Interpretation Completed 03/27/2008 76511 Color Doppler Completed 03/27/2008 43753 Pulse Doppler & Continuous Wave Completed 03/27/2008 93997 Echocardiogram Completed 03/27/2008 50592 ECHO Transthoracic, Real-Time 2D With Doppler And Completed Color Flow 03/24/2008 94703 ECHO Stress Test Incl Perf Contiuous ekg Monitoring Completed W/Phys Superv 03/24/2008 92615 ECHO/Stress Completed 03/24/2008 15896 ECHO/Stress Completed 03/24/2008 48069 Stress Test Completed 03/24/2008 01687 Stress Test Completed 03/09/2008 66791 EKG Tracing & Interpretation Completed 02/29/2008 24849 Holter Monitor Interpretation Completed Encounters Type Date Location Provider Dx Diagnosis Office Visit 07/26/2018 Pulmonology And Yaneth Warren, R09.82 Postnasal drip 12:15p Sleep Services Of MD Leonardo Z01.811 Encounter for preprocedural respiratory examination Z87.891 Personal history of nicotine dependence Office Visit 07/02/2018 Orthopedic Lester Brice, S82.852D Displ trimalleol 1:00p Services Of MD darrion jones low leg, C.M.A. subs for clos fx w routn heal M84.371D Stress fracture, right ankle, subs for fx w routn heal Office Visit 06/22/2018 Surgical Dione Lee MD G89.18 Other acute 2:15p Associates Of postprocedural pain [facility] Office Visit 06/21/2018 Wound Care Shayna K91.1 Postgastric surgery 1:15p Center AT [facility] [place] JOSE G Da Silva RN, syndromes RECENTERER-BC E44.0 Moderate protein-calorie malnutrition L89.154 Pressure ulcer of sacral region, stage 4 Office Visit 06/14/2018 Tc Brice, S82.852A Displaced 2:30p Services Of MD neda PrinceMCiera. fracture of left lower leg, init M84.371A Stress fracture, right ankle, initial encounter for fracture Office Visit 06/07/2018 Tc Brice, S82.852A Displaced 11:15a Services Of MD neda Powell fracture of left lower leg, init M84.371A Stress fracture, right ankle, initial encounter for fracture Office Visit 05/24/2018 2:30p Wound Care Shayna Da Silva L89.154 Pressure ulcer Center AT [facility] [place] SAV ARAIZA, RECENTERER-BC of sacral region, stage 4 B95.4 Oth streptococcus as the cause of diseases classd elswhr E44.0 Moderate protein-calorie malnutrition Z68.1 Body mass index (BMI) 19.9 or less, adult Office Visit 05/24/2018 [facility] Lloyd Reynolds E44.0 Moderate 4:00p For Infectious Dayanna Mace protein-calorie Diseases malnutrition L89.150 Pressure ulcer of sacral region, unstageable Office Visit 05/17/2018 1:30p Wound Care Shayna Da Silva L89.154 Pressure ulcer Center AT [facility] [place] JOSE G, RN, RECENTERER-BC of sacral region, stage 4 E44.0 Moderate protein-calorie malnutrition B95.4 Oth streptococcus as the cause of diseases classd elswhr L59.8 Oth disrd of the skin, subcu related to radiation Office Visit 05/10/2018 12:45p Wound Care Shayna Da Silva L89.154 Pressure ulcer Center AT [facility] [place] JOSE G, RN, RECENTERER-BC of sacral region, stage 4 E46 Unspecified [...] overload, unspecified Office Visit 03/25/2018 11:02a Intensivists Rose Hernandez5.21 Severe sepsis MD with septic shock J96.01 Acute respiratory failure with hypoxia K65.9 Peritonitis, unspecified K70.31 Alcoholic cirrhosis of liver with ascites B37.3 Candidiasis of vulva and vagina N39.0 Urinary tract infection, site not specified B96.20 Unsp Escherichia coli as the cause of diseases classd elswhr Office Visit 03/24/2018 10:00a Wound Care Jayleen Roberts L89.152 Pressure ulcer Center AT [facility] [place] MELISSA Pineda of sacral region, stage 2 E43 Unspecified severe protein-calorie malnutrition Office Visit 03/24/2018 11:02a Intensivists Lesly Martinez R65.21 Severe sepsis MD with septic shock J96.01 Acute respiratory failure with hypoxia E87.70 Fluid overload, unspecified K70.31 Alcoholic cirrhosis of liver with ascites Office Visit 03/23/2018 11:02a Intensivists Lesly J96.01 Acute respiratory Juan, MD failure with hypoxia E87.70 Fluid overload, unspecified K63.1 Perforation of intestine (nontraumatic) Office Visit 03/22/2018 11:01a Intensivists Lesly Martinez R65.21 Severe sepsis with septic shock J96.01 Acute respiratory failure with hypoxia K63.1 Perforation of intestine (nontraumatic) Office Visit 03/21/2018 11:00a Intensivists Angela Hood.9 PeritonitisMD unspecified J96.01 Acute respiratory failure with hypoxia J81.0 Acute pulmonary edema B37.3 Candidiasis of vulva and vagina N39.0 Urinary tract infection, site not specified B96.20 Unsp Escherichia coli as the cause of diseases classd elswhr D64.9 Anemia, unspecified S72.001A Fracture of unsp part of neck of right femur, init Office Visit 03/20/2018 11:00a Intensivists Angela Hood.9 MD Abdifatah unspecified J96.01 Acute respiratory failure with hypoxia J81.0 Acute pulmonary edema D64.9 Anemia, unspecified S72.001A Fracture of unsp part of neck of right femur, init N39.0 Urinary tract infection, site not specified B96.20 Unsp Escherichia coli as the cause of diseases classd elswhr R62.7 Adult failure to thrive Office Visit 03/19/2018 Surgical Dione Lee MD K63.1 Perforation of 7:00a Associates Of Weight Caller intestine (nontraumatic) Office Visit 03/19/2018 [facility] J96.01 Acute respiratory 10:59a Assocsu M.D. failure with Hospitalists hypoxia S72.001A Fracture of unsp part of neck of right femur, init K70.10 Alcoholic hepatitis without ascites D64.9 Anemia, unspecified E43 Unspecified severe protein-calorie malnutrition G60.3 Idiopathic progressive neuropathy N39.0 Urinary tract infection, site not specified Office Visit 03/19/2018 10:59a Intensivists Jose Frank K65.9 MD Abdifatah unspecified J96.01 Acute respiratory failure with hypoxia J81.0 Acute pulmonary edema D64.9 Anemia, unspecified S72.141A Displaced intertrochanteric fracture of right femur, init N39.0 Urinary tract infection, site not specified B96.20 Unsp Escherichia coli as the cause of diseases classd elswhr R62.7 Adult failure to thrive Office Visit 03/18/2018 [facility] Windy, J96.01 Acute respiratory 10:59a su Duncan M.D. failure with Hospitalists hypoxia S72.001A Fracture of unsp part of neck of right femur, init D64.9 Anemia, unspecified E43 Unspecified severe protein-calorie malnutrition R62.7 Adult failure to thrive N39.0 Urinary tract infection, site not specified G60.3 Idiopathic progressive neuropathy Office Visit 03/17/2018 [facility] Windy, J96.01 Acute respiratory 10:58a su Duncan M.D. failure with Hospitalists hypoxia S72.001A Fracture of unsp part of neck of right femur, init D64.9 Anemia, unspecified E43 Unspecified severe protein-calorie malnutrition R62.7 Adult failure to thrive N39.0 Urinary tract infection, site not specified Office Visit 03/17/2018 8:45a Wound Care Jayleen Roberts L89.152 Pressure ulcer Center AT [facility] [place] MELISSA Pineda of sacral region, stage 2 E43 Unspecified severe protein-calorie malnutrition [facility] S[facility] Fracture of 10:58a su Duncan M.D.,FACP unsp part of Hospitalists neck of right femur, init K70.10 Alcoholic hepatitis without ascites D64.9 Anemia, unspecified R00.0 Tachycardia, unspecified [facility] S72.001A Fracture of 10:57a su Duncan M.D.,FACP unsp part of Hospitalists neck of right femur, init K70.10 Alcoholic hepatitis without ascites D64.9 Anemia, unspecified R62.7 Adult failure to thrive Office Visit 03/14/2018 [facility] S72.001A Fracture of 10:57a su Duncan MD [...] initial encounter R78.81 Bacteremia Office Visit 03/13/2018 [facility] Valentine S72.001A Fracture of 10:57a Assoc,su Feldman MD unsp part of Hospitalists neck of right femur, init E43 Unspecified severe protein-calorie malnutrition G60.3 Idiopathic progressive neuropathy D64.9 Anemia, unspecified F10.20 Alcohol dependence, uncomplicated R62.7 Adult failure to thrive Z85.048 Prsnl hx of malig neoplm of rectum, rectosig junct, and anus Office 03/12/2018 [facility] Sonia S72.141A Displaced Visit 2:12p Services Of Kathy, intertrochanteric C.M.A. RPA-C fracture of right femur, init Office 03/12/2018 [facility] Lulu S72.001A Fracture of unsp part Visit 10:56a Assoc,su Sanchez DO of neck of right Hospitalists femur, [...] Unspecified protein-calorie malnutrition Office Visit 03/11/2018 10:56a [facility] Morris S72.001A Fracture of Assoc,su Krishnamurthy M.D. unsp part of Hospitalists neck of right femur, init F10.20 Alcohol dependence, uncomplicated K70.10 Alcoholic hepatitis without ascites E43 Unspecified severe protein-calorie malnutrition Office Visit 03/11/2018 [facility] Rita S72.141A Displaced 2:11p Services Of SANDRA Sun intertrochanteric C.M.A. fracture of right femur, init R78.81 Bacteremia Office Visit 03/10/2018 10:55a [facility] Lissette Thomas, S72.001A Fracture of Assoc,pc unsp part of Hospitalists neck of right femur, init D64.9 Anemia, unspecified G60.3 Idiopathic progressive neuropathy F10.20 Alcohol dependence, uncomplicated Office Visit 03/10/2018 8:15a [facility] Jayleenrenee Roberts L89.152 Pressure ulcer Center AT [facility] [place] MELISSA Pineda of sacral region, stage 2 S80.211A Abrasion, right knee, initial encounter S80.212A Abrasion, left knee, initial encounter E43 Unspecified severe protein-calorie malnutrition Office 03/10/2018 [facility] Bora G62.9 Polyneuropathy, Visit 7:00a Clinic MD Mina unspecified Z79.52 terminologist (current) use of systemic steroids Z79.899 Other terminologist (current) drug therapy Z92.21 Personal history of antineoplastic chemotherapy Office 03/10/2018 [facility] Lester Brice, S72.141A Displaced Visit 10:28a Services Of MD scott C.M.A. fracture of right femur, init W19.xxxA Unspecified fall, initial encounter Office Visit 03/09/2018 10:54a [facility] Jaz S72.001A Fracture of Assoc,pc DO Goyo unsp part of Hospitalists neck of right femur, init E43 Unspecified severe protein-calorie malnutrition R53.1 Weakness D64.9 Anemia, unspecified R41.0 Disorientation, unspecified W19.xxxA Unspecified fall, initial encounter Office 01/26/2018 Neurohospital[facility] Ramses French Z92.21 Personal history Visit 10:15a Clinic Dayanna Schwartz of antineoplastic chemotherapy G62.9 Polyneuropathy, unspecified Office Visit 01/15/2018 [facility] R10.9 Unspecified 9:42a Assoc,pc Dayanna Barr abdominal pain Hospitalists K86.1 Other chronic pancreatitis G60.3 Idiopathic progressive neuropathy [facility] K[facility]1 Other chronic 9:42a Assoc,su Barr M.D. pancreatitis Hospitalists G60.3 Idiopathic progressive neuropathy Office Visit 01/13/2018 [facility] Jalil R10.9 Unspecified 9:42a Assoc,su Glez N.P. 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 Hospitalists E83.42 Hypomagnesemia Office Visit 01/06/2018 [facility] Ramses French G62.9 Polyneuropathy, 12:00p Neurologic Dayanna Schwartz unspecified Services Of [facility] R20.0 Anesthesia of skin Z92.21 Personal history of antineoplastic chemotherapy Z85.048 Prsnl hx of malig neoplm of rectum, rectosig junct, and anus Office Visit 12/17/2017 8:38a [facility] Ana Luisa Ricketts, F41.9 Anxiety disorder, Assoc,pc unspecified Hospitalists G89.4 Chronic pain syndrome Office [...] of antineoplastic chemotherapy Office Visit 12/15/2017 10:00a [facility] Ramses French R20.8 Other disturbances Services [...] levels of other serum enzymes Office 10/31/2015 [facility] K85.2 Alcohol induced Visit 12:37p Assoc,SANDRA Orta acute Hospitalists pancreatitis C20 Malignant neoplasm of rectum F10.10 Alcohol abuse, uncomplicated F41.9 Anxiety disorder, unspecified Office 10/30/2015 [facility] K85.2 Alcohol induced Visit 12:35p Assoc,SANDRA Orta acute Hospitalists pancreatitis C20 Malignant neoplasm of rectum F10.10 Alcohol abuse, uncomplicated F41.9 Anxiety disorder, unspecified Office 10/29/2015 [facility] K85.2 Alcohol induced Visit 12:34p Assoc,SANDRA Orta acute Hospitalists pancreatitis C20 Malignant neoplasm of rectum F10.10 Alcohol abuse, uncomplicated F41.9 Anxiety disorder, unspecified Office Visit 10/28/2015 [facility] Bruce Hdz K85.2 Alcohol induced 12:32p Assoc,su DANIEL M.D. acute Hospitalists pancreatitis C20 Malignant neoplasm of rectum F10.10 Alcohol abuse, uncomplicated F41.9 Anxiety disorder, unspecified Office Visit 01/24/2009 9:20a [facility] Qutaybeh S. 785.1 Palpaden Garber M.D. 427.0 PSVT Paroxysmal Supraventricular Tachycardia 794.31 Electrocardiogram (ECG) (EKG) Abnormal Office Visit 06/30/2008 3:10p [facility] Qutaybeh S. 785.1 Palpitations Dayanna Garber 427.0 PSVT Paroxysmal Supraventricular Tachycardia Office Visit 04/06/2008 4:00p [facility] Qutaybeh S. 785.1 Palpitations Dayanna Garber 427.0 PSVT Paroxysmal Supraventricular Tachycardia Office Visit 03/09/2008 9:40a [facility] Qutaybeh S. 785.1 Palpitations Dayanna Garber 427.0 PSVT Paroxysmal Supraventricular Tachycardia 794.31 Electrocardiogram (ECG) (EKG) Abnormal Plan of Treatment Future Appointment(s):08/16/2018 1:15 pm - Lester Brice MD at [facility]08/06/2018 - Ramses Schwartz M.D.G56.32 Lesion of radial nerve, left upper limbNew Medication:Left Wrist Brace For Carpal Tunnel Syndrome -New Orders:EMG w/Nerve Conduct Study, Upper, Ordered: Follow up:2-4 wks with EricG62.9 Polyneuropathy, unspecifiedNew Orders:EMG w/ Nerve Conduct Study, Lower, Ordered: 08/06/18
[2018-08-27] MEDS ORDERED: NS 0.9% 1000 ML** 1,000 ML IV ONE ×2 (00:01→08:20)
[2018-08-27 00:34] LABS: ABS Basophils 0.1 10^3/ul (0-0.2); ABS Eosinophils 0.1 10^3/ul (0-0.6); ABS Monocytes 0.7 10^3/ul (0-0.8); ABS Neutrophils 5.9 10^3/ul (1.5-7.7); Eosinophil % 0.7 %; Hematocrit 42 % (35-47); Hemoglobin 13.7 g/dL (12.0-16.0); Lymphocyte % 22.9 %; Mean Corpuscular HGB Conc 33 g/dL (31-36); Mean Corpuscular Hemoglobin 28 pg (27-31); Mean Corpuscular Volume 85 fL (80-97); Mean Platelet Volume 7.6 fL (7.4-10.4); Platelet Count 258 10^3/uL (150-450); Red Blood Count 4.92 10^6 /uL (3.70-4.87); Red Cell Distribution Width 17 % (10-15); White Blood Count 8.8 10^3/uL (3.5-10.8)
[2018-08-27] MEDS ORDERED: HYDROmorphone INJ1* 1 MG/ML SYRINGE IV ONE (00:35)
[2018-08-27 00:51] LABS: ALT 10 U/L (7-52); AST 18 U/L (13-39); Albumin 4.2 g/dL (3.2-5.2); Albumin/Globulin Ratio 1.4 (1-3); Alkaline Phosphatase 132 U/L (34-104); Anion Gap 7 mmol/L (2-11); BUN/Creatinine Ratio 16.7 (8-20); Blood Urea Nitrogen 8 mg/dL (6-24); C Reactive Protein 7.95 mg/L (<8.01); CO2 Carbon Dioxide 29 mmol/L (22-32); Chloride 98 mmol/L (101-111); EGFR African American 166.3 (>60); EGFR Non-African American 137.5 (>60); Glucose 100 mg/dL (70-100); Potassium 3.8 mmol/L (3.5-5.0); Sodium 134 mmol/L (135-145); Total Protein 7.2 g/dL (6.4-8.9)
[2018-08-27 00:58] LABS: HCG Pregnancy < 0.60 mIU/mL
[2018-08-27] MEDS ORDERED: Iohexol 300* (CONTRAST) 10 ML SDV IV ONE (01:09)
--- NOTE | 2018-08-27 01:32 | ED ---
Abdominal Pain/Female - HPI Summary HPI Summary: Patient with history of rectal cancer in remission, pancreatitis, obstruction complains of left upper quadrant pain radiating to left upper back starting on , much worse today. Pain described as constant, sharp. Denies fever, cough, sore throat, CP, SOB, N/V/D, change in urine, change in BM, vaginal symptoms. Patient has history of alcoholic hepatitis, pancreatitis Shanita rectal cancer in remission with history of several bowel resections. No current chemotherapy or radiation therapy. - History of Current Complaint Chief Complaint: EDAbdPain Stated Complaint: SEVERE ABD PAIN PER PT Time Seen by Provider: 08/26/18 23:58 Hx Obtained From: Patient, Family/Cpr Ambulance Driver Hx Last Menstrual Period: post Onset/Duration: Gradual Onset, Lasting Days Timing: Constant Severity Initially: Severe Severity Currently: Severe Pain Intensity: 9 Pain Scale Used: 0-10 Numeric Location: Discrete At: LUQ Radiates: Yes Radiates to: Back Character: Sharp Aggravating Factor(s): Nothing Alleviating Factor(s): Nothing Associated Signs and Symptoms: Positive: Negative Allergies/Adverse Reactions: Allergies Allergy/AdvReac Type Severity Reaction Status Date / Time ciprofloxacin AdvReac Mild Diarrhea Verified 08/26/18 21:53 Home Medications: Home Medications Calcium Carbonate [Calcium] 500 mg PO DAILY 08/27/18 [History Confirmed 08/27/18 ] Cholestyramine Resin* [Questran*] 4 gm PO BID 08/27/18 [History Confirmed ] HYDROmorphone TAB* [Dilaudid Tab*] 4 mg PO Q4HR MDD 6 08/27/18 [History Confirmed 08/27/18] LORazepam [Lorazepam] 1 mg PO BID PRN MDD 2 08/27/18 [History Confirmed 08/27/18 ] Magnesium Oxide [Magnesium 400 mg] 1 tab PO DAILY 08/27/18 [History Confirmed ] Morphine Sulfate [Morphine Sulfate ER] 30 mg PO BID 08/27/18 [History Confirmed 08/27/18] Multivitamin with Minerals [One Daily Complete] 1 each PO DAILY 08/27/18 [ History Confirmed 08/27/18] PMH/Surg Hx/FS Hx/Imm Hx Endocrine/Hematology History: Denies: Hx Diabetes, Hx Thyroid Disease Cardiovascular History: Reports: Other Cardiovascular Problems/Disorders - SVT Denies: Hx Hypertension, Hx Pacemaker/ICD Respiratory History: Denies: Hx Asthma, Hx Chronic Obstructive Pulmonary Disease (COPD) GI History: Reports: Other GI Disorders - Colorectal CA Denies: Hx Ulcer History: Reports: Hx Kidney Stones Denies: Hx Renal Disease Musculoskeletal History: Reports: Hx Orthopedic Injury - Pelvic fracture, Hx Osteoporosis, Other Musculoskeletal History - OSTEOPOROSIS Sensory History: Denies: Hx Cataracts, Hx Contacts or Glasses, Hx Glaucoma, Hx Deafness, Hx Hearing Aid Opthamlomology History: Denies: Hx Cataracts, Hx Contacts or Glasses, Hx Glaucoma Neurological History: Reports: Hx Headaches, Other Neuro Impairments/Disorders - Neuropathy Psychiatric History: Reports: Hx Anxiety, Hx Depression, Hx Suicide Attempt Denies: Hx Attention Deficit Hyperactivity Disorder, Hx Eating Disorder, Hx Panic Disorder, Hx Post Traumatic Stress Disorder, Hx Inpatient Treatment, Hx Community Mental Health Tx, Hx Schizophrenia, Hx Bipolar Disorder, Hx of Violent Episodes Against Others, Other Psychiatric Issues/Disorders - Cancer History Cancer Type, Location and Year: COLORECTAL Hx Chemotherapy: Yes - COLORECTAL CANCER, 2008 Hx Radiation Therapy: Yes - Surgical History Surgery Procedure, Year, and Place: Lower anterior bowel resection 05/2008. VERTEBRAPLASTY - LUMBAR REGION ~2016. PELVIC FX. RECTUM AND 13 INCHES OF SIGMOID COLON REMOVED Infectious Disease History: No Infectious Disease History: Denies: Hx Clostridium Difficile, Hx Hepatitis, Hx Human Immunodeficiency Virus (HIV), Hx of Known/Suspected MRSA, Hx Shingles, Hx Tuberculosis, Hx Known/ Suspected VRE, Traveled Outside the [place] in Last 30 Days - Family History Known Family History: Positive: Unknown, Other - Colon CA - Social History Alcohol Use: Occasionally Alcohol Amount: 2x/week, none recently Substance Use Type: Reports: None Smoking Status (MU): Former Smoker Type: Cigarettes Review of Systems Constitutional: Negative Eyes: Negative ENT: Negative Cardiovascular: Negative Respiratory: Negative Positive: Abdominal Pain Genitourinary: Negative Musculoskeletal: Negative Skin: Negative Neurological: Negative Psychological: Normal All Other Systems Reviewed And Are Negative: Yes Physical Exam - Summary Physical Exam Summary: Pain with palpation of left upper quadrant and. He umbilical area. Abdominal exam otherwise unremarkable. No CVA tenderness bilaterally. Lung sounds clear to auscultation bilaterally. Vital Signs On Initial Exam: Initial Vitals Temp Pulse Resp BP Pulse Ox 98.3 F 88 16 104/79 97 08/26/18 21:45 08/26/18 21:45 08/26/18 21:45 08/26/18 21:45 08/26/18 21:45 Vital Signs Reviewed: Yes Appearance: Positive: Well-Appearing Skin: Positive: Warm Head/Face: Positive: Normal Head/Face Inspection Eyes: Positive: Normal Neck: Positive: Supple Respiratory/Lung Sounds: Positive: Clear to Auscultation Cardiovascular: Positive: Normal Abdomen Description: Positive: Other: Musculoskeletal: Positive: Normal Neurological: Positive: Normal Psychiatric: Positive: Normal AVPU Assessment: Alert - Ciara Coma Scale Best Eye Response: 4 - Spontaneous Best Motor Response: 6 - Obeys Commands Best Verbal Response: 5 - Oriented Coma Scale Total: 15 Diagnostics - Vital Signs Vital Signs Temp Pulse Resp BP Pulse Ox 08/27/18 00:52 18 08/26/18 21:45 98.3 F 88 16 104/79 97 - Laboratory Lab Results: Lab Results 08/27/18 08/27/18 08/27/18 Range/Units 00:12 00:12 00:12 WBC 8.8 (3.5-10.8) 10^3/uL RBC 4.92 H (3.70-4.87) 10^6 /uL Hgb 13.7 (12.0-16.0) g/dL Hct 42 (35-47) % MCV 85 (80-97) fL MCH 28 (27-31) pg MCHC 33 (31-36) g/dL RDW 17 H (10-15) % Plt Count 258 (150-450) 10^3/uL MPV 7.6 (7.4-10.4) fL Neut % (Auto) 67.4 % Lymph % (Auto) 22.9 % [place] % (Auto) 7.9 % Eos % (Auto) 0.7 % Baso % (Auto) 1.1 % Absolute Neuts (auto) 5.9 (1.5-7.7) 10^3/ul Absolute Lymphs (auto) 2.0 (1.0-4.8) 10^3/ul Absolute Monos (auto) 0.7 (0-0.8) 10^3/ul Absolute Eos (auto) 0.1 (0-0.6) 10^3/ul Absolute Basos (auto) 0.1 (0-0.2) 10^3/ul Absolute Nucleated RBC 0.0 10^3/ul Nucleated RBC % 0.0 Sodium 134 L (135-145) mmol/L Potassium 3.8 (3.5-5.0) mmol/L Chloride 98 L (101-111) mmol/L Carbon Dioxide 29 (22-32) mmol/L Anion Gap 7 (2-11) mmol/L BUN 8 (6-24) mg/dL Creatinine 0.48 L (0.51-0.95) mg/dL Est GFR ( Amer) 166.3 (>60) Est GFR (Non-Af Amer) 137.5 (>60) BUN/Creatinine Ratio 16.7 (8-20) Glucose 100 (70-100) mg/dL Lactic Acid 1.3 (0.5-2.0) mmol/L Calcium 10.0 (8.6-10.3) mg/dL Total Bilirubin 0.40 (0.2-1.0) mg/dL AST 18 (13-39) U/L ALT 10 (7-52) U/L Alkaline Phosphatase 132 H (34-104) U/L C-Reactive Protein 7.95 (<8.01) mg/L Total Protein 7.2 (6.4-8.9) g/dL Albumin 4.2 (3.2-5.2) g/dL Globulin 3.0 (2-4) g/dL Albumin/Globulin Ratio 1.4 (1-3) Lipase 25 (11.0-82.0) U/L Beta HCG, Quant < 0.60 mIU/mL Result Diagrams: 08/27/18 00:12 08/27/18 00:12 Lab Statement: Any lab studies that have been ordered have been reviewed, and results considered in the medical decision making process. Abdominal Pain Fem Course/Dx - Course Course Of Treatment: Patient with history of rectal cancer in remission, pancreatitis, obstruction complains of left upper quadrant pain radiating to left upper back starting on 08/23/18, much worse today. Pain described as constant, sharp. Denies fever, cough, sore throat, CP, SOB, N/V/D, change in urine, change in BM, vaginal symptoms. Patient has history of alcoholic hepatitis, pancreatitis Shanita rectal cancer in remission with history of several bowel resections. No current chemotherapy or radiation therapy. Vital signs within normal limits. Labs within normal limits or at patient baseline. Lipase is normal. Patient ambulating to the bathroom without apparent distress after 1 mg Dilaudid IV. - Diagnoses Provider Diagnoses: Pancreatic mass Discharge - Sign-Out/Discharge Documenting (check all that apply): Sign-Out Patient Signing out patient TO: Mayda Quesada - Discharge Plan Condition: Improved Disposition: HOME Patient Education Materials: Pancreatitis (ED), Abdominal Pain (ED) Referrals: Atilio Harry MD [Primary Care Provider] - Additional Instructions: - for the next 24 hours - eat and drink clears for the next 12 hours - if you tolerate this okay, okay to add bland food - follow-up with your specialty providers contact your specialty providers or return with questions or concerns - Attestation Statements Scribe Documentation Reviewed: Yes Progress Note Date of Service: 08/27/18 Note: BRANT MCRAE was visited. Therapy notes read and reviewed. Time: 408 When I went to see patient patient was sleeping. I woke her up. Patient stated that she still has pain after she woke up. On exam, she has tenderness to the left epigastric area and left upper quadrant. Patient stated she is tender but she does not have pain. Did review CAT scan results with radiologist,Dr Farr. He stated that patient has ill-defined mass around the pancreas. Possibly pancreatitis. Giving the patient number pancreatic enzymes, normal CRP. He stated that malignancy cannot be ruled out. He stated that patient would benefit from MRI or PET scan. I did have a long discussion with the patient regarding her lab results and CAT scan results. Patient is reluctant to be admitted to the hospital. However she is asking for pain medication. I told patient that if she is not going to be admitted she would have to sign an AMA. Patient stated that I am forcing her to be admitted to the hospital. Patient is manipulative. Trying to manipulate the exact meaning of my words. I did explain to her the process between signing AMA and being admitted. Patient agreed to be admitted. Case discussed with admitting hospitalist Dr. Albarado. Vital Signs: Vital Signs Temp Pulse Resp BP Pulse Ox 36.8 C 74 18 128/78 95 08/26/18 21:45 08/27/18 03:01 08/27/18 00:52 08/26/18 23:54 08/27/18 03:01 Lab Results: Laboratory Results - last 24 hr 08/27/18 08/27/18 08/27/18 00:12 00:12 00:12 WBC 8.8 RBC 4.92 H Hgb 13.7 Hct 42 MCV 85 MCH 28 MCHC 33 RDW 17 H Plt Count 258 MPV 7.6 Neut % (Auto) 67.4 Lymph % (Auto) 22.9 [place] % (Auto) 7.9 Eos % (Auto) 0.7 Baso % (Auto) 1.1 Absolute Neuts (auto) 5.9 Absolute Lymphs (auto) 2.0 Absolute Monos (auto) 0.7 Absolute Eos (auto) 0.1 Absolute Basos (auto) 0.1 Absolute Nucleated RBC 0.0 Nucleated RBC % 0.0 Sodium 134 L Potassium 3.8 Chloride 98 L Carbon Dioxide 29 Anion Gap 7 BUN 8 Creatinine 0.48 L Est GFR ( Amer) 166.3 Est GFR (Non-Af Amer) 137.5 BUN/Creatinine Ratio 16.7 Glucose 100 Lactic Acid 1.3 Calcium 10.0 Total Bilirubin 0.40 AST 18 ALT 10 Alkaline Phosphatase 132 H C-Reactive Protein 7.95 Total Protein 7.2 Albumin 4.2 Globulin 3.0 Albumin/Globulin Ratio 1.4 Lipase 25 Beta HCG, Quant < 0.60
--- NOTE | 2018-08-27 04:12 | ED ---
Progress - Progress Note Progress Note: This pt is a signout from SANDRA Toney, to Dr. Quesada at 0300 08/27/18 pending Abd/Pel CT scan results. Abd/Pel CT IMPRESSION: 1. Ill-defined soft tissue mass located between the medial wall of the stomach extending to the aorta. This lesion extends to the undersurface of the left hemidiaphragm. This lesion appears to arise from the body and tail of the pancreas. A low density area is seen within this lesion. This low-density area does not have an enhancing wall. This is consistent with pancreatitis. This appears to worsened since the prior CT study. 2. Right hemicolectomy. No evidence of bowel obstruction. No abnormal bowel wall thickening. 3. Overall surgical staple is seen in the rectosigmoid junction. No apparent complications. At 0423, Dr. Quesada discusses pt's case with Dr. Albarado, hospitalist, who agrees to admit pt. Dx is pancreatic mass. Course/Dx - Course Course Of Treatment: Patient with history of rectal cancer in remission, pancreatitis, obstruction complains of left upper quadrant pain radiating to left upper back starting on 08/23/18, much worse today. Pain described as constant, sharp. Denies fever, cough, sore throat, CP, SOB, N/V/D, change in urine, change in BM, vaginal symptoms. Patient has history of alcoholic hepatitis, pancreatitis Shanita rectal cancer in remission with history of several bowel resections. No current chemotherapy or radiation therapy. Vital signs within normal limits. Labs within normal limits or at patient baseline. Lipase is normal. Patient ambulating to the bathroom without apparent distress after 1 mg Dilaudid IV. Abd/Pel CT IMPRESSION: 1. Ill-defined soft tissue mass located between the medial wall of the stomach. extending to the aorta. This lesion extends to the undersurface of the left. hemidiaphragm. This lesion appears to arise from the body and tail of the. pancreas. A low density area is seen within this lesion. This low-density area. does not have an enhancing wall. This is consistent with pancreatitis. This. appears to worsened since the prior CT study. 2. Right hemicolectomy. No evidence of bowel obstruction. No abnormal bowel. wall thickening. 3. Overall surgical staple is seen in the rectosigmoid junction. No apparent. complications. At 0423, Dr. Quesada discusses pt's case with Dr. Albarado, hospitalist, who agrees to admit pt. Dx is pancreatic mass. - Diagnoses Provider Diagnoses: Pancreatic mass - Provider Notifications Discussed Care Of Patient With: yuriy Time Discussed With Above Provider: 04:23 Instructed by Provider To: Other - Dr. Quesada discusses pt's case with Dr. Albarado , hospitalist, who agrees to admit pt. Discharge - Sign-Out/Discharge Documenting (check all that apply): Receiving Sign-Out Receiving patient FROM: Bora Miller - This pt is a signout from SANDRA Toney , to Dr. Quesada at 0300 08/27/18 pending Abd/Pel CT scan results. Patient Received Moderate/Deep Sedation with Procedure: No - Discharge Plan Referrals: Atilio Harry MD [Primary Care Provider] - - Attestation Statements Document Initiated by Scribe: Yes Documenting Scribe: Victoriano Jacobs Provider For Whom Scribe is Documenting (Include Credential): Dr. Mayda Quesada MD Scribe Attestation: I, Victoriano Jacobs, scribed for Dr. Mayda Quesada MD on 08/27/18 at 0716. Status of Scribe Document: Ready
[2018-08-27] MEDS ORDERED: Morphine 4 MG/ML VIAL (1 ml) 4 MG/ML VIAL IV ONE (04:19)
--- NOTE | 2018-08-27 04:34 | ED ---
Progress - Progress Note Progress Note: This pt is a signout from SANDRA Toney, to Dr. Quesada at 0300 08/27/18 pending Abd/Pel CT scan results. Abd/Pel CT IMPRESSION: 1. Ill-defined soft tissue mass located between the medial wall of the stomach extending to the aorta. This lesion extends to the undersurface of the left hemidiaphragm. This lesion appears to arise from the body and tail of the pancreas. A low density area is seen within this lesion. This low-density area does not have an enhancing wall. This is consistent with pancreatitis. This appears to worsened since the prior CT study. 2. Right hemicolectomy. No evidence of bowel obstruction. No abnormal bowel wall thickening. 3. Overall surgical staple is seen in the rectosigmoid junction. No apparent complications. Time: 0415 I did discuss CAT scan results with the radiologist, Dr. Farr. He stated that there is ill defined mass around the pancreas, suggesting pancreatitis. However patient has normal pancreatic enzymes, normal white count and normal CRP. He stated that he cannot rule out malignancy. Stated that patient needs MRI or a PET scan of her abdomen. When I went to see patient. Patient was sleeping. I woke her up to discuss CAT scan results with her. After I woke up the patient, patient stated that she has pain. I did review lab results and CAT scan results with patient. I advised patient that she needs to be admitted for further evaluation. Patient was reluctant to be admitted. I told her if she doesn't want to be admitted she would be signing out AMA. Patient stated that I am forcing her to be admitted by telling her that she would sign out AMA. Patient is manipulative, interpreting my words the wrong way. Patient stated that she states has not been getting enough pain medication in the emergency room. However patient was sleeping when I went to see her. Patient agreed to be admitted. Case discussed with Dr. Albarado, Admitting hospitalist. Patient will be admitted to his service. Re-Evaluation - Re-Evaluation First Eval Re-Evaluation Time: 09:30 Comment: The patient would like to eat and would like to go home. Dr. Temple, hospitalist,completed full consultatino. Will give the pt food and if tolerated the patient will be discharged home. Second Eval Re-Evaluation Time: 10:46 Comment: Dr. Temple consulted on the patient. Pt tolerated PO. She will be discharged home. Course/Dx - Course Course Of Treatment: Patient with history of rectal cancer in remission, pancreatitis, obstruction complains of left upper quadrant pain radiating to left upper back starting on 08/23/18, much worse today. Pain described as constant, sharp. Denies fever, cough, sore throat, CP, SOB, N/V/D, change in urine, change in BM, vaginal symptoms. Patient has history of alcoholic hepatitis, pancreatitis Shanita rectal cancer in remission with history of several bowel resections. No current chemotherapy or radiation therapy. Vital signs within normal limits. Labs within normal limits or at patient baseline. Lipase is normal. Patient ambulating to the bathroom without apparent distress after 1 mg Dilaudid IV. - Diagnoses Provider Diagnoses: Pancreatic mass Discharge - Sign-Out/Discharge Documenting (check all that apply): Patient Departure Patient Received Moderate/Deep Sedation with Procedure: No - Discharge Plan Condition: Improved Disposition: HOME Patient Education Materials: Pancreatitis (ED), Abdominal Pain (ED) Referrals: Atilio Harry MD [Primary Care Provider] - Additional Instructions: - for the next 24 hours - eat and drink clears for the next 12 hours - if you tolerate this okay, okay to add bland food - follow-up with your specialty providers contact your specialty providers or return with questions or concerns - Billing Disposition and Condition Condition: IMPROVED Disposition: Home - Attestation Statements Scribe Documentation Reviewed: Yes
[2018-08-27] MEDS ORDERED: HYDROmorphone TAB* 4 MG PO PRN (08:53)
[2018-08-27 08:55] LABS: Urine Appearance Clear; Urine Bacteria Absent (Absent); Urine Bilirubin Negative (Negative); Urine Blood 1+ (Negative); Urine Color Yellow; Urine Glucose Negative (Negative); Urine Ketones Negative (Negative); Urine Nitrite Negative (Negative); Urine Protein Negative (Negative); Urine Red Blood Cell 1+(3-5/hpf) (Absent); Urine Urobilinogen Negative (Negative); Urine White Blood Cell Absent (Absent)
[2018-08-27] MEDS ORDERED: Morphine TAB Extended Release (*) 30 MG TAB.ER PO SCH (09:00)
[2018-08-27] MEDS ORDERED: NS 0.45% 1000 ML BAG* 1,000 ML IV SCH (09:00)
--- NOTE | 2018-08-27 09:34 | ED ---
Progress - Progress Note Progress Note: This pt was a sign-out from Dr. Quesada to Dr. Muro at shift change pending admission. Re-Evaluation - Re-Evaluation First Eval Re-Evaluation Time: 09:30 Comment: The patient would like to eat and would like to go home. Dr. Temple, hospitalist,completed full consultatino. Will give the pt food and if tolerated the patient will be discharged home. Second Eval Re-Evaluation Time: 10:46 Comment: Dr. Temple consulted on the patient. Pt tolerated PO. She will be discharged home. Course/Dx - Diagnoses Provider Diagnoses: Pancreatic mass Discharge - Sign-Out/Discharge Documenting (check all that apply): Receiving Sign-Out Receiving patient FROM: Mayda Quesada Patient Received Moderate/Deep Sedation with Procedure: No - Discharge Plan Condition: Improved Disposition: HOME Patient Education Materials: Pancreatitis (ED), Abdominal Pain (ED) Referrals: Atilio Harry MD [Primary Care Provider] - Additional Instructions: - for the next 24 hours - eat and drink clears for the next 12 hours - if you tolerate this okay, okay to add bland food - follow-up with your specialty providers contact your specialty providers or return with questions or concerns - Billing Disposition and Condition Condition: IMPROVED Disposition: Home - Attestation Statements Document Initiated by Matthew: Yes Documenting Kuldipibe: Carlee Hazel Provider For Whom Matthew is Documenting (Include Credential): Debora Muro MD Scribe Attestation: Carlee Tavares, scribed for Debora Muro MD on 08/28/18 at 0340. Scribe Documentation Reviewed: Yes Provider Attestation: The documentation as recorded by the Carlee farrell accurately reflects the service I personally performed and the decisions made by me, Debora Muro MD Status of Scribe Document: Viewed
[2018-08-27 11:06] VITALS: BP 99/62
--- NOTE | 2018-08-27 13:34 | CONS ---
CC: Dr. Harry; Dr. Colón; [facility]; Dr. Lester Brice * CONSULTATION REPORT: DATE OF CONSULT: 08/26/18 - EMERGENCY DEPT PRIMARY CARE PROVIDER: Dr. Harry. REASON FOR CONSULTATION: Abdominal pain. HISTORY OF PRESENT ILLNESS: Radha Valdez is a 48-year-old female with history of chronic pancreatitis and pancreatic pseudocyst who also has history of rectal cancer and recent prolonged hospital stays at the beginning of 2018 that included a left hip ORIF, perforation of the colon; status post hemicolectomy with anastomosis ulcer, treated further after the patient was transferred from our intensive care unit to [facility]. The patient stated that from [facility] she was discharged sometime in April 2018 and spent a month at a rehab center at [place], [place]. She was discharged from rehab on 05/10/18. During that time, she developed left buttock ulcer/decubitus that had been treated at the [facility]. The patient also stated she had been doing her physical therapy somewhat too aggressively initially and she suffered from bilateral "ankle stress fractures" that were treated conservatively with casting by Dr. Brice. Just recently, she had her cast removed and she is able to ambulate with a walker as tolerated. The patient stated that she has chronic abdominal pain. She is using Dilaudid and MS Contin around the clock, but for the past 24 hours the pain had gotten worse in the left upper quadrant. She stated that she thought that she developed more pancreatitis and she was not eating that much. She came into the ED for evaluation. Here, she spent a night. The CT showed more inflammation in the pancreas. Her lipase was 25. After approximately 12 hours of observation in the emergency department, she feels much better and now she wishes to go home. At this point, the decision was made with the patient that we re-introduce diet and if she is tolerating food diet, she will likely be able to be discharged from the emergency department. If she does not tolerate the diet, she will be admitted. PAST MEDICAL HISTORY: 1. History of right distal radial metaphysis nondisplaced fracture in February 2018. 2. History of left hip fracture, status post ORIF in March 2018. 3. History of rectal cancer diagnosed in 2007, status post chemo, radiation, and surgery, being followed by Dr. Harry. Although her cancer has noted not to be active for the past several years, the patient has had elevated tumor markers. 4. History of severe peripheral neuropathy with rapid progression, status post IVIG, followed by Dr. Schwartz. 5. History of chronic recurrent pancreatitis. 6. History of malnutrition. 7. History of chronic pain. 8. History of vitamin B12 deficiency. 9. History of alcohol abuse, while last drink was in March 2018. 10. Osteoporosis. 11. History of small-bowel obstruction. 12. History of bowel perforation in March 2018 after the patient's hip surgery, status post left hemicolectomy performed by on 03/19/18 for cecal perforation and pelvic abscess. Postoperatively, the patient did poorly and developed GI bleed, for which she was transferred from our facility on 03/17 to [facility]. There, doing a CT of abdomen, she was noted to have an anastomosis leak. During colostomy, she was noted to have an ulcer at the anastomosis site. Apparently, she was treated conservatively for both of those and those results. 13. History of left status decubitus developed over the course of her hospital stays from March to May. Currently, the patient is in [facility]. CURRENT MEDICATIONS: Include: 1. Ativan 1 mg b.i.d. 2. Dilaudid 4 mg up to 6 times a day. 3. MS Contin 30 mg b.i.d. 4. Multivitamin Chivo that she is currently taking and which is a dietary supplement. 5. Questran and Creon that was just prescribed by Dr. Colón and the patient has not started yet. 6. Multivitamin 1 tablet a day. 7. Calcium and magnesium supplements. ALLERGIES: CIPROFLOXACIN. FAMILY HISTORY: Reviewed and noncontributory. SOCIAL HISTORY: The patient is . Her and daughter are very involved in her care. She does not have a healthcare proxy, but as a surrogate she names her Richie Valdez. She has not drank alcohol since March 2018. She denies any illicit drug use or smoking. She ambulates with a roller walker. She has visiting nurses to see her every other day for wound checks on her left buttock decubitus. She also goes to wound care center. REVIEW OF SYSTEMS: Please see history of present illness. The patient stated that she has frequent loose bowel movements up to 4 times a day, for which she uses Imodium frequently. The patient has chronic abdominal pain, which got exacerbated yesterday. Today , the patient feels back to baseline and she requests to eat. All the remaining 12 systems were reviewed with the patient and were, otherwise , negative. PHYSICAL EXAM: Blood pressure of 103/64, heart rate of 70 and regular, respiratory rate 16, oxygen saturation 97% on room air, temperature of 98.3. General: The patient is a very pleasant 48-year-old female who is in no acute distress, alert and oriented x3. HEENT: Head: Atraumatic, normocephalic. Eyes: Pupils are equal and reactive to light and accommodation. Oropharynx is clear. Mucosa moist. Neck: Supple. No JVD. No bruits bilaterally. Cardiovascular: Regular rate and rhythm. No murmur. Respiratory: Clear to auscultation bilaterally. Abdomen: Soft, minimally tender in the left upper quadrant with no rebound and no guarding. Bowel sounds are present in all 4 quadrants. Extremities: There is no edema. Pulses are 2+ bilaterally. There is no clubbing or cyanosis. On evaluation of the skin, the patient has left- sided buttock decubitus that has a fissure-like opening with deepest central area of approximately 2 cm in diameter with the bottom covered in slough and unstageable. The decubitus itself was approximately 2 to 3 cm deep. There is no evidence of infection. There is no drainage and no changes of the skin surrounding the area. The fissure length is approximately 5 cm, depth approximately 2 to 3 cm, the central area of crater-like opening is approximately 2 cm in diameter. Neuro Evaluation: Speech is clear. Cranial nerves II through XII grossly intact. Motor strength is 5/5 bilaterally. DIAGNOSTIC STUDIES/LAB DATA: Laboratory data showed sodium of 134, potassium of 3.8, chloride 98, carbon dioxide 29, BUN 8, creatinine 0.48. Liver function has been unremarkable, alkaline phosphatase of 132, C-reactive protein of 7.9, lipase of 25. Lactic acid of 1.3. White blood cell count of 8.8, hemoglobin of 13.7, hematocrit of 42, and platelets of 258. CT of abdomen and pelvis, impression: "Ill-defined soft tissue mass located between the medial wall of the stomach extending to the aorta. This lesion extends to the undersurface of the left hemidiaphragm. This lesion appears to arise in the body of the tail of the pancreas. A low-density area is seen within this lesion. The low-density area does not have an enhancing wall. This is consistent with pancreatitis. This appears to be worsened since prior CT. Right hemicolectomy. No evidence of bowel obstruction. No abnormal bowel wall thickening. Old surgical geena are seen in the rectosigmoid junction with no apparent complications." ASSESSMENT AND PLAN: 1. Radha Valdez is a 48-year-old female with history of rectal cancer and hemicolectomy for bowel perforation who presents now with exacerbation of chronic abdominal pain and likely exacerbation of her recurrent pancreatitis. Although her CT appears to have more inflammation at the tail of the pancreas and that was discussed further with our radiology team, the patient clinically is feeling much better and requests to eat. Her lipase is within normal limits , her inflammatory markers are also unremarkable, and lactic acid is also within normal limits. At this point, the patient after receiving initial intravenous hydration, the patient is going to be placed on a liquid to full liquid diet, and if she tolerates it as per her wish, the patient is going to be discharged home. She still has had problems with the ill-defined lesion within the pancreas that is chronic and the patient is recommended to follow up with Dr. Harry in regards to that. The patient also was informed that she needs a followup CT scan of the abdomen and pelvis within 3 to 6 months to document stability. 2. In regards to the patient's chronic pain management, the patient is going to be started on her Dilaudid and MS Contin. The case was discussed with Dr. Muro, the ED provider, who is aware that if the patient tolerates diet, she will likely be discharged from the ED. TIME SPENT: Approximately 75 minutes were spent on consultation of this patient , more than half that time was spent [id number] with the patient during the interview and physical exam. Thank you very much. [id number]/[facility] #: [id number] YOLY
== END 2018-08-27 11:06 | disposition home or self-care (01) ==
LOC: ED 21:40
DX: K86.9 Disease of pancreas, unspecified (principal); Z85.048 Personal history of other malignant neoplasm of rectum, rectosigmoid junction, and anus; Z88.1 Allergy status to other antibiotic agents; Z87.891 Personal history of nicotine dependence; Z98.890 Other specified postprocedural states; Z79.899 Other long term (current) drug therapy; M81.0 Age-related osteoporosis without current pathological fracture
CPT/HCPCS: 36415; 74177; 80053; 81003; 81015; 83605; 83690; 84702; 85025; 86140; 87040; 96361; 96374; 96375; 99284; A9270-GY; J1170; J2270; Q9967

== ENCOUNTER 2019-04-22 17:33 | Emergency (ER) | payer OTHER ==
[2019-04-22 19:30] VITALS: BP 118/78
--- NOTE | 2019-04-22 19:50 | UC ---
Skin Complaint HPI - HPI Summary HPI Summary: Skin avulsion right abdullahi about 3 weeks ago---area not healing well has been washing a couple of a times a day with alcohol and applying luanne--- - History of Current Complaint Chief Complaint: UCSkin Time Seen by Provider: 04/22/19 19:31 Stated Complaint: SKIN COMPLAINT Hx Obtained From: Patient Hx Last Menstrual Period: post ?: No Onset/Duration: Sudden Onset, Lasting Weeks - 3, Still Present Skin Exposure Onset/Duration: Weeks Ago - 3 Timing: Constant Onset Severity: Moderate Current Severity: Moderate Pain Intensity: 3 Pain Scale Used: 0-10 Numeric Location: Discrete Character: Pain, Redness Aggravating Factor(s): Nothing Alleviating Factor(s): Nothing Associated Signs & Symptoms: Positive: Drainage - yellow, Tenderness. Negative : Fever, Chills, Red Streaks - Allergy/Home Medications Allergies/Adverse Reactions: Allergies Allergy/AdvReac Type Severity Reaction Status Date / Time ciprofloxacin AdvReac Mild Diarrhea Verified 04/22/19 19:31 Home Medications: Home Medications Calcium Carbonate [Calcium] 600 mg PO DAILY 08/27/18 [History Confirmed 04/22/19 ] HYDROmorphone TAB* [Dilaudid Tab*] 4 mg PO Q4HR MDD 6 08/27/18 [History Confirmed 04/22/19] LORazepam [Lorazepam] 1 mg PO BID PRN MDD 2 08/27/18 [History Confirmed 03/21/19 ] Morphine Sulfate [Morphine Sulfate ER] 30 mg PO BID 08/27/18 [History Confirmed 04/22/19] Multivitamin with Minerals [One Daily Complete] 1 each PO DAILY 08/27/18 [ History Confirmed 04/22/19] Bismuth Subsalicylate [Pepto-Bismol] 262 mg PO Q6H 04/22/19 [History Confirmed 04/22/19] Cephalexin CAP* [Keflex CAP*] 500 mg PO TID #30 cap 04/22/19 [Rx] Loperamide CAP* [Imodium CAP*] 2 mg PO Q4H PRN 04/22/19 [History Confirmed 04/21] Mupirocin 2% OINT* [Bactroban 2 % Oint*] 1 applic TOPICAL BID #1 tube 04/22/19 [ Rx] Neomycin/Polym/Bacit TOP OINT* [Neosporin TOP OINT TUBE*] 1 applic TOPICAL BID 04/22/19 [History Confirmed 04/22/19] PMH/Surg Hx/FS Hx/Imm Hx Previously Healthy: No Other Psychological History: chronic pain, alcohol abuse disorder - Surgical History Surgical History: Yes Surgery Procedure, Year, and Place: Lower anterior bowel resection 05/2008. VERTEBRAPLASTY - LUMBAR REGION ~2015. PELVIC FX 2015. RECTUM AND 13 INCHES OF SIGMOID COLON REMOVED 2008. Femur fx repair, 2018. Colon surgery 03/2018 - Family History Known Family History: Positive: Unknown, Other - Colon CA - Social History Occupation: Disabled Lives: With Family Alcohol Use: None Alcohol Amount: 2x/week, Substance Use Type: None Smoking Status (MU): Former Smoker Type: Cigarettes When Did the Patient Quit Smoking/Using Tobacco: quit 7 yrs ago - Immunization History Most Recent Influenza Vaccination: 11/2017 Most Recent Tetanus Shot: uknown Most Recent Pneumonia Vaccination: None Review of Systems All Other Systems Reviewed And Are Negative: Yes Constitutional: Positive: Negative Skin: Positive: Other - dime size open area right abdullahi about 2 mm deep--- generalized redness but no streaking Eyes: Positive: Negative ENT: Positive: Negative Respiratory: Positive: Negative Cardiovascular: Positive: Negative Gastrointestinal: Positive: Negative Genitourinary: Positive: Negative Motor: Positive: Negative Neurovascular: Positive: Negative Musculoskeletal: Positive: Negative Neurological/Mental Status: Positive: Negative Psychological: Positive: Negative Is Patient Immunocompromised?: No Physical Exam Triage Information Reviewed: Yes Appearance: No Pain Distress, Ill-Appearing - appear older than stated age, Thin Vital Signs: Initial Vital Signs Temp 98.9 F 04/22/19 19:22 Pulse 91 04/22/19 19:22 Resp 16 04/22/19 19:22 BP 118/78 04/22/19 19:22 Pulse Ox 100 04/22/19 19:22 Vital Signs Reviewed: Yes Eye Exam: Normal Eyes: Positive: Conjunctiva Clear ENT Exam: Normal ENT: Positive: Normal ENT inspection, Hearing grossly normal. Negative: Trismus , Muffled voice, Hoarse voice Dental Exam: Normal Neck exam: Normal Neck: Positive: Supple, Nontender Respiratory Exam: Normal Respiratory: Positive: Chest non-tender, No respiratory distress, No accessory muscle use Cardiovascular Exam: Normal Cardiovascular: Positive: RRR, Pulses Normal, Brisk Capillary Refill Musculoskeletal Exam: Normal Musculoskeletal: Positive: Strength Intact, ROM Intact, No Edema Neurological Exam: Normal Neurological: Positive: Alert, Muscle Tone Normal Psychological Exam: Normal Skin: Positive: Other - dimes size 2 mm deep open area right abdullahi, no drainage, generalized surrounding erythema no stresking Course/Dx - Course Course Of Treatment: Stop alcohol wash and luanne---change to mild soap and water and bactroban--- elevate leg and use warm compress follow with pcp--patient refused tetanus booster - Diagnoses Provider Diagnosis: Infection, wound status post trauma Discharge ED - Sign-Out/Discharge Documenting (check all that apply): Patient Departure All imaging exams completed and their final reports reviewed: No Studies - Discharge Plan Condition: Stable Disposition: HOME Prescriptions: Cephalexin CAP* [Keflex CAP*] 500 mg PO TID #30 cap Mupirocin 2% OINT* [Bactroban 2 % Oint*] 1 applic TOPICAL BID #1 tube Patient Education Materials: Wound Infection (ED), Warm Compress or Soak (ED) Referrals: Atilio Harry MD [Primary Care Provider] - If Needed - Billing Disposition and Condition Condition: STABLE Disposition: Home - Attestation Statements Provider Attestation: This patient was not seen by me. I was available for consult. Chart reviewed. BIB
== END 2019-04-22 20:25 | disposition home or self-care (01) ==
LOC: UCEAST 17:33
DX: S81.801A Unspecified open wound, right lower leg, initial encounter (principal); L08.9 Local infection of the skin and subcutaneous tissue, unspecified; Z88.1 Allergy status to other antibiotic agents; X58.XXXA Exposure to other specified factors, initial encounter; Y92.9 Unspecified place or not applicable; Z87.891 Personal history of nicotine dependence
CPT/HCPCS: 99212; G0463

== ENCOUNTER 2019-12-19 22:22 | Inpatient (IN) ==
[2019-12-19] MEDS ORDERED: NS 0.9% 1000 ml BAG 1,000 ML IV ONE (23:55)
[2019-12-19] MEDS ORDERED: Cefepime 2 GM in NS 0.9% 50 ML 50 ML IVPB ONE (23:58)
[2019-12-20 00:34] LABS: ABS Basophils 0.1 10^3/ul (0-0.2); ABS Lymphocytes 1.9 10^3/ul (1.0-4.8); ABS Monocytes 0.9 10^3/ul (0-0.8); ABS Neutrophils 6.5 10^3/ul (1.5-7.7); Eosinophil % 0.1 %; Hematocrit 20 % (35-47); Hemoglobin 6.7 g/dL (12.0-16.0); Lymphocyte % 20.5 %; Mean Corpuscular HGB Conc 34 g/dL (31-36); Mean Corpuscular Hemoglobin 34 pg (27-31); Mean Corpuscular Volume 101 fL (80-97); Mean Platelet Volume 7.9 fL (7.4-10.4); Nucleated Red Blood Cells % 0.1; Platelet Count 258 10^3/uL (150-450); Red Blood Count 1.95 10^6 /uL (3.70-4.87); Red Cell Distribution Width 16 % (10-15); White Blood Count 9.4 10^3/uL (3.5-10.8)
[2019-12-20 00:43] LABS: INR 1.55 (0.82-1.09)
[2019-12-20] MEDS ORDERED: Vancomycin 750 MG in NS 0.9% 250 ml 250 ML IVPB ONE (01:00)
[2019-12-20] MEDS ORDERED: Cefepime 2 GM in Dextrose 2 GM/50 ML BAG IV ONE (01:00)
[2019-12-20 01:06] LABS: ALT 67 U/L (7-52); AST 76 U/L (13-39); Albumin 1.7 g/dL (3.2-5.2); Albumin/Globulin Ratio 0.8 (1-3); Alkaline Phosphatase 171 U/L (34-104); Anion Gap 4 mmol/L (2-11); BUN/Creatinine Ratio 34.3 (8-20); Blood Urea Nitrogen 12 mg/dL (6-24); C Reactive Protein 31.96 mg/L (<8.01); CO2 Carbon Dioxide 35 mmol/L (22-32); Calcium 6.9 mg/dL (8.6-10.3); Chloride 89 mmol/L (101-111); EGFR African American 238.5 (>60); EGFR Non-African American 197.1 (>60); Globulin 2.1 g/dL (2-4); Glucose 80 mg/dL (70-100); Potassium 3.4 mmol/L (3.5-5.0); Sodium 128 mmol/L (135-145); Total Protein 3.8 g/dL (6.4-8.9)
[2019-12-20 01:17] LABS: Troponin I 0.03 ng/mL (<0.03)
[2019-12-20] MEDS ORDERED: HYDROmorphone 1 MG/1 ML SYRINGE IV SLOW PU ONE ×2 (01:22→01:57)
[2019-12-20] MEDS ORDERED: Potassium Chlor 20 meq TAB.ER PO ONE (03:25)
[2019-12-20] MEDS ORDERED: Calcium Gluconate 1 GM/10 ML VIAL (in Pyxis) IV PUSH ONE (03:27)
[2019-12-20] MEDS ORDERED: CMCS: Diclofenac 1% GEL (NF) 100 GM TUBE TOPICAL PRN (03:32)
[2019-12-20] MEDS ORDERED: Senna TAB 8.6 mg TAB PO PRN (03:49)
[2019-12-20] MEDS ORDERED: Ondansetron 4 mg VIAL 2 MG/ML 2 ml VIAL IV PRN (03:49)
[2019-12-20] MEDS ORDERED: NS 0.9% 250 ml 250 ML IV ONE (03:56)
[2019-12-20] MEDS ORDERED: Cefepime 2 GM in Dextrose 2 GM/50 ML BAG IV SCH ×2 (04:00→12:00)
[2019-12-20] MEDS ORDERED: Calcium Gluconate 2 GM in NS 0.9% 100 ml BAG 100 ML IV ONE (04:00)
[2019-12-20] MEDS ORDERED: Vancomycin per Pharmacy 1 EA NOTE FOLLOW UP SCH (04:00)
[2019-12-20] MEDS ORDERED: Lidocaine PATCH 5% PATCH TRANSDERM SCH (04:00)
[2019-12-20 04:36] LABS: Vitamin D Total 25(OH) 50.8 ng/mL (20-50)
[2019-12-20 06:11] LABS: ABS Lymphocytes 1.8 10^3/ul (1.0-4.8); ABS Monocytes 0.9 10^3/ul (0-0.8); ABS Neutrophils 4.9 10^3/ul (1.5-7.7); Eosinophil % 0.2 %; Hematocrit 24 % (35-47); Lymphocyte % 23.8 %; Mean Corpuscular HGB Conc 34 g/dL (31-36); Mean Corpuscular Hemoglobin 32 pg (27-31); Mean Corpuscular Volume 94 fL (80-97); Mean Platelet Volume 7.9 fL (7.4-10.4); Nucleated Red Blood Cells % 0.2; Platelet Count 213 10^3/uL (150-450); Red Blood Count 2.49 10^6 /uL (3.70-4.87); Red Cell Distribution Width 19 % (10-15); White Blood Count 7.7 10^3/uL (3.5-10.8)
[2019-12-20 06:46] LABS: Albumin 1.5 g/dL (3.2-5.2); Albumin/Globulin Ratio 0.8 (1-3); BUN/Creatinine Ratio 32.4 (8-20); Calcium 6.5 mg/dL (8.6-10.3); EGFR African American 223.7 (>60); EGFR Non-African American 184.9 (>60); Globulin 1.9 g/dL (2-4); Potassium 3.2 mmol/L (3.5-5.0); Total Bilirubin 0.8 mg/dL (0.2-1.0); Total Protein 3.4 g/dL (6.4-8.9)
[2019-12-20 07:02] LABS: Magnesium 1.4 mg/dL (1.9-2.7)
[2019-12-20 07:03] LABS: Troponin I 0.02 ng/mL (<0.03)
[2019-12-20] MEDS: NS 0.9% 1000 ml BAG 1,000 ML IV SCH ×2 (07:20→23:22)
[2019-12-20] MEDS ORDERED: Magnesium Sulf 4 GM/100 ML IV 4,000 MG/100 ML BAG IVPB ONE (09:00)
[2019-12-20] MEDS: KCL 20 MEQ/100 ML IVPREMIX 20 MEQ/100 ML BAG IV SCH ×2 (09:32→12:39)
[2019-12-20] MEDS: Morphine ER 30 mg TAB ** extended release PO SCH ×2 (09:41→22:56)
[2019-12-20] MEDS: Calcium Carb 1250 mg TAB (500 mg elemental calcium) PO SCH (09:45)
[2019-12-20] MEDS: Potassium Chlor 20 meq TAB.ER PO SCH (09:45)
[2019-12-20] MEDS: Multivitamins/Minerals TAB PO SCH (09:45)
[2019-12-20] MEDS: Magnesium Chloride EC 64 mgTAB PO SCH ×2 (09:45→22:47)
[2019-12-20] MEDS ORDERED: ceFAZolin 2 GM PREMIX 2 GM/50 ML BAG IVPB SCH (10:00)
[2019-12-20] MEDS ORDERED: Vancomycin 500 MG in NS 0.9% 250 ML IVPB SCH (11:30)
[2019-12-20] MEDS: ceFAZolin 2 GM in NS 100 MLS Q8H (Pharmacy Admix) IVPB SCH ×2 (12:36→19:37)
[2019-12-20] MEDS: Iron Sucrose 200 MG in NS 0.9% 100 ml BAG 100 ML IVPB SCH (13:54)
[2019-12-20 14:31] LABS: Folate 17.33 ng/mL (>3.99)
[2019-12-20] MEDS: Pancrelipase 5,000 units CAP PO SCH ×2 (17:38→18:04)
[2019-12-20] MEDS ORDERED: Phytonadione Oral Solution 5 MG/25 ML UDC PO ONE ×2 (17:40→21:00)
[2019-12-20] MEDS ORDERED: Pantoprazole VIAL 40 MG VIAL IV ONE (18:14)
[2019-12-20 19:03] LABS: ABS Lymphocytes 1.4 10^3/ul (1.0-4.8); ABS Monocytes 0.7 10^3/ul (0-0.8); ABS Neutrophils 8.2 10^3/ul (1.5-7.7); Eosinophil % 0.1 %; Hematocrit 25 % (35-47); Hemoglobin 8.4 g/dL (12.0-16.0); Lymphocyte % 13.3 %; Mean Corpuscular HGB Conc 34 g/dL (31-36); Mean Corpuscular Hemoglobin 32 pg (27-31); Mean Corpuscular Volume 95 fL (80-97); Mean Platelet Volume 7.4 fL (7.4-10.4); Platelet Count 228 10^3/uL (150-450); Red Blood Count 2.63 10^6 /uL (3.70-4.87); Red Cell Distribution Width 20 % (10-15); White Blood Count 10.3 10^3/uL (3.5-10.8)
[2019-12-20] MEDS ORDERED: Lidocaine Patch REMOVE PATCH PATCH OFF SCH (21:00)
[2019-12-21] MEDS: ceFAZolin 2 GM in NS 100 MLS Q8H (Pharmacy Admix) IVPB SCH ×3 (04:19→21:08)
[2019-12-21 04:59] LABS: Urine Appearance Cloudy; Urine Bilirubin Negative (Negative); Urine Blood 3+ (Negative); Urine Color Amber; Urine Glucose Negative (Negative); Urine Ketones Trace (Negative); Urine Nitrite Negative (Negative); Urine Protein 1+(30 mg/dL) (Negative); Urine Urobilinogen Negative (Negative)
[2019-12-21 05:10] LABS: Urine Bacteria 1+ (Absent); Urine Red Blood Cell 3+(>10/hpf) (Absent); Urine Squamous Epithelial Cell Present (Absent); Urine White Blood Cell 2+(11-20/hpf) (Absent)
[2019-12-21 07:04] LABS: Hematocrit 23 % (35-47); Hemoglobin 7.6 g/dL (12.0-16.0); Mean Corpuscular HGB Conc 34 g/dL (31-36); Mean Corpuscular Hemoglobin 32 pg (27-31); Mean Corpuscular Volume 96 fL (80-97); Mean Platelet Volume 7.4 fL (7.4-10.4); Platelet Count 202 10^3/uL (150-450); Red Blood Count 2.36 10^6 /uL (3.70-4.87); Red Cell Distribution Width 20 % (10-15); White Blood Count 8.4 10^3/uL (3.5-10.8)
[2019-12-21 07:24] LABS: ALT 53 U/L (7-52); AST 100 U/L (13-39); Alkaline Phosphatase 168 U/L (34-104); Anion Gap 3 mmol/L (2-11); BUN/Creatinine Ratio 33.3 (8-20); Blood Urea Nitrogen 12 mg/dL (6-24); C Reactive Protein 23.18 mg/L (<8.01); CO2 Carbon Dioxide 28 mmol/L (22-32); Chloride 101 mmol/L (101-111); EGFR African American 230.9 (>60); EGFR Non-African American 190.8 (>60); Glucose 75 mg/dL (70-100); Magnesium 2.2 mg/dL (1.9-2.7); Potassium 3.6 mmol/L (3.5-5.0); Sodium 132 mmol/L (135-145); Total Protein 3.1 g/dL (6.4-8.9)
[2019-12-21 07:28] LABS: Albumin < 1.5 g/dL (3.2-5.2); Albumin/Globulin Ratio 0.9 (1-3); Calcium 6.3 mg/dL (8.6-10.3); Globulin 1.6 g/dL (2-4)
[2019-12-21 08:31] LABS: Polychromasia 1+
[2019-12-21] MEDS ORDERED: Influenza VAC *QUAD* 2020-21* 0.5 ML SYRINGE IM ONE (09:00)
[2019-12-21] MEDS: Iron Sucrose 200 MG in NS 0.9% 100 ml BAG 100 ML IVPB SCH (09:43)
[2019-12-21] MEDS ORDERED: Vancomycin Trough Check NOTE FOLLOW UP ONE (11:00)
[2019-12-21] MEDS ORDERED: NS 0.9% 1000 ml BAG 1,000 ML IV SCH ×2 (11:24→23:40)
[2019-12-21] MEDS: Pancrelipase 5,000 units CAP PO SCH ×3 (11:59→18:23)
[2019-12-21] MEDS: Multivitamins/Minerals TAB PO SCH (12:00)
[2019-12-21] MEDS: Pantoprazole VIAL 40 MG VIAL IV SCH ×2 (12:00→21:02)
[2019-12-21] MEDS: Magnesium Chloride EC 64 mgTAB PO SCH ×2 (12:00→20:59)
[2019-12-21] MEDS: Morphine ER 30 mg TAB ** extended release PO SCH ×2 (12:01→20:59)
[2019-12-21] MEDS: Potassium Chlor 20 meq TAB.ER PO SCH (12:02)
[2019-12-21] MEDS: Calcium Carb 1250 mg TAB (500 mg elemental calcium) PO SCH (12:02)
[2019-12-21 14:41] LABS: ABS Lymphocytes 0.6 10^3/ul (1.0-4.8); ABS Monocytes 0.6 10^3/ul (0-0.8); ABS Neutrophils 7.2 10^3/ul (1.5-7.7); Eosinophil % 0.1 %; Lymphocyte % 7.3 %; Nucleated Red Blood Cells % 0.1
[2019-12-21] MEDS ORDERED: ceFAZolin 2 GM PREMIX 2 GM/50 ML BAG IVPB SCH (20:00)
[2019-12-21] MEDS: ceFAZolin 2 GM PREMIX 2 GM/50 ML BAG IVPB SCH (21:02)
[2019-12-21] MEDS: Cholestyramine Resin 4 GM POWDER PO SCH (21:06)
[2019-12-21] MEDS ORDERED: NS 0.9% 500 ml BAG 500 ML IV ONE (23:40)
[2019-12-22] MEDS: ceFAZolin 2 GM PREMIX 2 GM/50 ML BAG IVPB SCH ×2 (04:27→14:09)
[2019-12-22 06:34] LABS: ABS Basophils 0.1 10^3/ul (0-0.2); ABS Lymphocytes 0.7 10^3/ul (1.0-4.8); ABS Monocytes 0.8 10^3/ul (0-0.8); ABS Neutrophils 9.2 10^3/ul (1.5-7.7); Eosinophil % 0.2 %; Hematocrit 24 % (35-47); Lymphocyte % 6.3 %; Mean Corpuscular HGB Conc 34 g/dL (31-36); Mean Corpuscular Hemoglobin 33 pg (27-31); Mean Corpuscular Volume 97 fL (80-97); Mean Platelet Volume 7.8 fL (7.4-10.4); Nucleated Red Blood Cells % 0.3; Platelet Count 188 10^3/uL (150-450); Red Blood Count 2.46 10^6 /uL (3.70-4.87); Red Cell Distribution Width 20 % (10-15); White Blood Count 10.8 10^3/uL (3.5-10.8)
[2019-12-22 06:52] LABS: ALT 34 U/L (7-52); AST 54 U/L (13-39); Alkaline Phosphatase 188 U/L (34-104); Anion Gap 2 mmol/L (2-11); BUN/Creatinine Ratio 37.5 (8-20); Blood Urea Nitrogen 12 mg/dL (6-24); CO2 Carbon Dioxide 29 mmol/L (22-32); Chloride 104 mmol/L (101-111); EGFR African American 264.5 (>60); EGFR Non-African American 218.6 (>60); Glucose 143 mg/dL (70-100); Potassium 3.9 mmol/L (3.5-5.0); Sodium 135 mmol/L (135-145); Total Protein 3.3 g/dL (6.4-8.9)
[2019-12-22 07:56] LABS: Calcium 6.4 mg/dL (8.6-10.3)
[2019-12-22 08:07] LABS: Albumin < 1.5 g/dL (3.2-5.2); Albumin/Globulin Ratio 0.8 (1-3); Globulin 1.8 g/dL (2-4)
[2019-12-22] MEDS: Pancrelipase 5,000 units CAP PO SCH ×3 (08:28→19:39)
[2019-12-22] MEDS: Pantoprazole VIAL 40 MG VIAL IV SCH ×2 (08:29→22:27)
[2019-12-22] MEDS: Calcium Carb 1250 mg TAB (500 mg elemental calcium) PO SCH (08:30)
[2019-12-22] MEDS: Multivitamins/Minerals TAB PO SCH (08:31)
[2019-12-22] MEDS: Magnesium Chloride EC 64 mgTAB PO SCH ×2 (08:34→22:27)
[2019-12-22] MEDS: Morphine ER 30 mg TAB ** extended release PO SCH ×2 (08:34→22:27)
[2019-12-22] MEDS: Potassium Chlor 20 meq TAB.ER PO SCH (08:44)
[2019-12-22] MEDS: Iron Sucrose 200 MG in NS 0.9% 100 ml BAG 100 ML IVPB SCH (10:17)
[2019-12-22] MEDS: Cholestyramine Resin 4 GM POWDER PO SCH ×2 (11:49→22:27)
[2019-12-22] MEDS ORDERED: Iodixanol (CONTRAST) 320 MG/ML 100 ML SDV IV ONE (14:02)
[2019-12-22] MEDS ORDERED: Vancomycin 750 MG in NS 0.9% 250 ml 250 ML IVPB ONE (19:15)
[2019-12-22] MEDS: Cefepime 1 GM in Dextrose 1 GM/50 ML BAG IV SCH (19:48)
[2019-12-22 21:07] LABS: TSH Ultra Thyroid Stim Horm 2.39 mcIU/mL (0.34-5.60)
[2019-12-22 21:31] LABS: Vitamin B12 984 pg/mL (180-914)
[2019-12-22] MEDS ORDERED: Vancomycin per Pharmacy 1 EA NOTE FOLLOW UP PRN (22:29)
[2019-12-23] MEDS ORDERED: Furosemide 20 mg/2 ml IV VIAL IV ONE ×2 (00:18→03:11)
[2019-12-23 03:39] LABS: Influenza A Molecular Negative (Negative); Influenza B Molecular Negative (Negative)
[2019-12-23] MEDS: Vancomycin 500 MG in NS 0.9% 250 ML IVPB SCH ×3 (04:09→22:43)
[2019-12-23] MEDS: Cefepime 1 GM in Dextrose 1 GM/50 ML BAG IV SCH ×3 (04:24→19:45)
[2019-12-23 06:17] LABS: ABS Basophils 0.1 10^3/ul (0-0.2); ABS Lymphocytes 0.6 10^3/ul (1.0-4.8); ABS Monocytes 0.7 10^3/ul (0-0.8); ABS Neutrophils 9.3 10^3/ul (1.5-7.7); Eosinophil % 0.2 %; Hematocrit 27 % (35-47); Lymphocyte % 5.7 %; Mean Corpuscular HGB Conc 34 g/dL (31-36); Mean Corpuscular Hemoglobin 33 pg (27-31); Mean Corpuscular Volume 97 fL (80-97); Mean Platelet Volume 8.2 fL (7.4-10.4); Nucleated Red Blood Cells % 0.3; Platelet Count 174 10^3/uL (150-450); Red Blood Count 2.76 10^6 /uL (3.70-4.87); Red Cell Distribution Width 20 % (10-15); White Blood Count 10.7 10^3/uL (3.5-10.8)
[2019-12-23 06:29] LABS: ALT 22 U/L (7-52); Alkaline Phosphatase 189 U/L (34-104); Blood Urea Nitrogen 11 mg/dL (6-24); CO2 Carbon Dioxide 24 mmol/L (22-32); Calcium 6.5 mg/dL (8.6-10.3); Chloride 105 mmol/L (101-111); EGFR African American 284.9 (>60); EGFR Non-African American 235.5 (>60); Glucose 101 mg/dL (70-100); Magnesium 1.7 mg/dL (1.9-2.7); Sodium 134 mmol/L (135-145); Total Protein 3.7 g/dL (6.4-8.9)
[2019-12-23 07:07] LABS: AST 39 U/L (13-39); Anion Gap 5 mmol/L (2-11); Potassium 3.7 mmol/L (3.5-5.0)
[2019-12-23] MEDS ORDERED: Magnesium Sulfate 2 gm BAG 2 GM/50 ML BAG IVPB ONE (07:07)
[2019-12-23 07:08] LABS: Albumin < 1.5 g/dL (3.2-5.2); Albumin/Globulin Ratio 0.7 (1-3); Globulin 2.2 g/dL (2-4)
[2019-12-23] MEDS ORDERED: Thiamine 100 MG/ML 2 ml VIAL 500 MG in NS 0.9% 250 ml 250 ML IV ONE (07:35)
[2019-12-23 07:51] LABS: C Reactive Protein 51.62 mg/L (<8.01)
[2019-12-23] MEDS: Cholestyramine Resin 4 GM POWDER PO SCH ×2 (08:28→19:54)
[2019-12-23] MEDS: Multivitamins/Minerals TAB PO SCH (08:28)
[2019-12-23] MEDS: Pancrelipase 5,000 units CAP PO SCH ×3 (08:28→17:43)
[2019-12-23] MEDS: Morphine ER 30 mg TAB ** extended release PO SCH ×2 (08:28→19:51)
[2019-12-23] MEDS: Calcium Carb 1250 mg TAB (500 mg elemental calcium) PO SCH (08:29)
[2019-12-23] MEDS: Potassium Chlor 20 meq TAB.ER PO SCH (08:29)
[2019-12-23] MEDS: Magnesium Chloride EC 64 mgTAB PO SCH ×2 (08:29→19:52)
[2019-12-23] MEDS: Pantoprazole VIAL 40 MG VIAL IV SCH ×2 (08:30→19:45)
[2019-12-23 14:11] LABS: Lipase < 10 U/L (11.0-82.0)
[2019-12-23] MEDS: Iron Sucrose 200 MG in NS 0.9% 100 ml BAG 100 ML IVPB SCH (14:24)
[2019-12-23 15:26] LABS: Body Fluid Source Pleural Fluid
[2019-12-23 16:31] LABS: Body Fluid Mono 22 %
[2019-12-23 16:56] LABS: HIV 4th Generation Nonreactive (Nonreactive)
[2019-12-23] MEDS ORDERED: Vancomycin Trough Check NOTE FOLLOW UP ONE (19:00)
[2019-12-23] MEDS: Vancomycin 750 MG in NS 0.9% 250 ML IVPB SCH (21:50)
[2019-12-24] MEDS: Cefepime 1 GM in Dextrose 1 GM/50 ML BAG IV SCH ×3 (04:05→20:59)
[2019-12-24] MEDS: Vancomycin 750 MG in NS 0.9% 250 ML IVPB SCH ×3 (05:12→22:11)
[2019-12-24 07:12] LABS: ABS Lymphocytes 0.7 10^3/ul (1.0-4.8); ABS Monocytes 0.7 10^3/ul (0-0.8); ABS Neutrophils 6.6 10^3/ul (1.5-7.7); Eosinophil % 0.2 %; Hematocrit 24 % (35-47); Hemoglobin 7.8 g/dL (12.0-16.0); Mean Corpuscular HGB Conc 33 g/dL (31-36); Mean Corpuscular Hemoglobin 32 pg (27-31); Mean Corpuscular Volume 98 fL (80-97); Mean Platelet Volume 8.4 fL (7.4-10.4); Nucleated Red Blood Cells % 0.3; Platelet Count 126 10^3/uL (150-450); Red Blood Count 2.42 10^6 /uL (3.70-4.87); Red Cell Distribution Width 20 % (10-15); White Blood Count 8.1 10^3/uL (3.5-10.8)
[2019-12-24 07:34] LABS: INR 1.42 (0.82-1.09)
[2019-12-24 07:35] LABS: ALT 15 U/L (7-52); AST 25 U/L (13-39); Alkaline Phosphatase 156 U/L (34-104); Anion Gap 3 mmol/L (2-11); Blood Urea Nitrogen 14 mg/dL (6-24); CO2 Carbon Dioxide 25 mmol/L (22-32); Chloride 108 mmol/L (101-111); EGFR African American 284.9 (>60); EGFR Non-African American 235.5 (>60); Glucose 104 mg/dL (70-100); Magnesium 2.1 mg/dL (1.9-2.7); Potassium 3.7 mmol/L (3.5-5.0); Sodium 136 mmol/L (135-145); Total Protein 3.2 g/dL (6.4-8.9)
[2019-12-24 07:37] LABS: Albumin < 1.5 g/dL (3.2-5.2); Albumin/Globulin Ratio 0.9 (1-3); Calcium 6.4 mg/dL (8.6-10.3); Globulin 1.7 g/dL (2-4)
[2019-12-24] MEDS: Pancrelipase 5,000 units CAP PO SCH ×3 (07:43→17:24)
[2019-12-24] MEDS ORDERED: Furosemide 20 mg/2 ml IV VIAL IV SLOW PU ONE ×2 (08:09→16:46)
[2019-12-24] MEDS ORDERED: Thiamine 100 MG/ML 2 ml VIAL 500 MG in NS 0.9% 250 ml 250 ML IV ONE (08:30)
[2019-12-24] MEDS ORDERED: Albumin Human 25% 25 GM/100 ML BTL IV ONE (08:30)
[2019-12-24] MEDS: Iron Sucrose 200 MG in NS 0.9% 100 ml BAG 100 ML IVPB SCH (09:07)
[2019-12-24] MEDS: Pantoprazole VIAL 40 MG VIAL IV SCH ×2 (09:13→20:59)
[2019-12-24] MEDS: Cholestyramine Resin 4 GM POWDER PO SCH ×2 (09:15→20:59)
[2019-12-24] MEDS: Morphine ER 30 mg TAB ** extended release PO SCH ×2 (09:18→20:57)
[2019-12-24] MEDS: Multivitamins/Minerals TAB PO SCH (09:18)
[2019-12-24] MEDS: Potassium Chlor 20 meq TAB.ER PO SCH (09:18)
[2019-12-24] MEDS: Calcium Carb 1250 mg TAB (500 mg elemental calcium) PO SCH ×2 (09:19→20:58)
[2019-12-24] MEDS: Magnesium Chloride EC 64 mgTAB PO SCH ×2 (09:19→20:57)
[2019-12-24 13:16] LABS: Fluid Type: PLEURAL; Lactate Dehydrogenase, BF 96 U/L; Triglycerides (BF) 17 mg/dL
[2019-12-24] MEDS ORDERED: TPN 24 HR with D10W 1000 ml BAG 1,000 ML, Amino Acid Infusion 10% 850 ML, Sterile Water... IV SCH (17:00)
[2019-12-25] MEDS: Cefepime 1 GM in Dextrose 1 GM/50 ML BAG IV SCH ×3 (04:37→19:51)
[2019-12-25] MEDS ORDERED: Vancomycin Trough Check NOTE FOLLOW UP ONE (05:00)
[2019-12-25 07:36] LABS: ALT 12 U/L (7-52); AST 20 U/L (13-39); Albumin 1.7 g/dL (3.2-5.2); Albumin/Globulin Ratio 0.9 (1-3); Alkaline Phosphatase 126 U/L (34-104); Anion Gap 1 mmol/L (2-11); Blood Urea Nitrogen 15 mg/dL (6-24); CO2 Carbon Dioxide 27 mmol/L (22-32); Calcium 7.1 mg/dL (8.6-10.3); Chloride 108 mmol/L (101-111); Cholesterol 83 mg/dL; EGFR African American 284.9 (>60); EGFR Non-African American 235.5 (>60); Globulin 1.9 g/dL (2-4); Glucose 155 mg/dL (70-100); Magnesium 1.8 mg/dL (1.9-2.7); Phosphorus 1.1 mg/dL (2.5-5.0); Potassium 3.7 mmol/L (3.5-5.0); Sodium 136 mmol/L (135-145); Total Protein 3.6 g/dL (6.4-8.9); Triglycerides 116 mg/dL
[2019-12-25 07:38] LABS: Prealbumin 5 mg/dL (18-38)
[2019-12-25] MEDS: Vancomycin 750 MG in NS 0.9% 250 ML IVPB SCH ×3 (08:01→20:44)
[2019-12-25] MEDS: Morphine ER 30 mg TAB ** extended release PO SCH ×2 (08:06→20:28)
[2019-12-25] MEDS: Potassium Chlor 20 meq TAB.ER PO SCH (08:06)
[2019-12-25] MEDS: Pancrelipase 5,000 units CAP PO SCH ×3 (08:06→16:28)
[2019-12-25] MEDS: Multivitamins/Minerals TAB PO SCH (08:06)
[2019-12-25] MEDS: Pantoprazole VIAL 40 MG VIAL IV SCH ×2 (08:07→20:29)
[2019-12-25] MEDS: Cholestyramine Resin 4 GM POWDER PO SCH ×2 (08:07→20:28)
[2019-12-25] MEDS: Magnesium Chloride EC 64 mgTAB PO SCH ×2 (08:07→20:29)
[2019-12-25] MEDS: Calcium Carb 1250 mg TAB (500 mg elemental calcium) PO SCH ×2 (08:08→20:29)
[2019-12-25 10:56] LABS: Fluid Type, Protein, Total PLEURAL
[2019-12-25] MEDS ORDERED: Furosemide 20 mg/2 ml IV VIAL IV SLOW PU ONE (15:54)
[2019-12-25] MEDS ORDERED: Albumin Human 25% 12.5 GM/50 ML BTL IV ONE (16:30)
[2019-12-25] MEDS ORDERED: TPN 24 HR with D10W 1000 ml BAG 1,000 ML, Amino Acid Infusion 10% 850 ML, Sterile Water... IV SCH (17:00)
[2019-12-26 00:45] LABS: Hematocrit 23 % (35-47); Hemoglobin 7.6 g/dL (12.0-16.0)
[2019-12-26] MEDS: Cefepime 1 GM in Dextrose 1 GM/50 ML BAG IV SCH ×3 (03:33→16:28)
[2019-12-26] MEDS: Vancomycin 750 MG in NS 0.9% 250 ML IVPB SCH ×3 (04:50→17:48)
[2019-12-26] MEDS: Pantoprazole VIAL 40 MG VIAL IV SCH ×2 (08:14→20:49)
[2019-12-26] MEDS: Magnesium Chloride EC 64 mgTAB PO SCH ×2 (08:15→20:49)
[2019-12-26] MEDS: Pancrelipase 5,000 units CAP PO SCH ×3 (08:16→16:31)
[2019-12-26] MEDS: Multivitamins/Minerals TAB PO SCH (08:16)
[2019-12-26] MEDS: Morphine ER 30 mg TAB ** extended release PO SCH ×2 (08:16→20:40)
[2019-12-26] MEDS: Calcium Carb 1250 mg TAB (500 mg elemental calcium) PO SCH ×2 (08:16→20:48)
[2019-12-26] MEDS: Potassium Chlor 20 meq TAB.ER PO SCH (08:17)
[2019-12-26] MEDS: Cholestyramine Resin 4 GM POWDER PO SCH ×2 (08:24→20:42)
[2019-12-26 08:33] LABS: Hematocrit 20 % (35-47); Hemoglobin 6.6 g/dL (12.0-16.0); Mean Corpuscular HGB Conc 34 g/dL (31-36); Mean Corpuscular Hemoglobin 33 pg (27-31); Mean Corpuscular Volume 99 fL (80-97); Red Blood Count 1.97 10^6 /uL (3.70-4.87); Red Cell Distribution Width 20 % (10-15); White Blood Count 10.6 10^3/uL (3.5-10.8)
[2019-12-26 08:47] LABS: ALT 13 U/L (7-52); AST 23 U/L (13-39); Albumin 1.8 g/dL (3.2-5.2); Albumin/Globulin Ratio 0.9 (1-3); Alkaline Phosphatase 112 U/L (34-104); Blood Urea Nitrogen 15 mg/dL (6-24); CO2 Carbon Dioxide 28 mmol/L (22-32); Calcium 7.3 mg/dL (8.6-10.3); Chloride 109 mmol/L (101-111); Cholesterol 76 mg/dL; EGFR African American 284.9 (>60); EGFR Non-African American 235.5 (>60); Globulin 1.9 g/dL (2-4); Glucose 96 mg/dL (70-100); Magnesium 1.7 mg/dL (1.9-2.7); Potassium 3.8 mmol/L (3.5-5.0); Sodium 137 mmol/L (135-145); Total Protein 3.7 g/dL (6.4-8.9); Triglycerides 95 mg/dL
[2019-12-26 08:52] LABS: Prealbumin 6 mg/dL (18-38)
[2019-12-26 09:04] LABS: ABS Eosinophils 0.1 10^3/ul (0-0.6); ABS Monocytes 0.7 10^3/ul (0-0.8); ABS Neutrophils 8.8 10^3/ul (1.5-7.7); Eosinophil % 0.5 %; Lymphocyte % 9.4 %; Mean Platelet Volume 9.2 fL (7.4-10.4); Nucleated Red Blood Cells % 0.1; Platelet Count 92 10^3/uL (150-450)
[2019-12-26 09:21] LABS: Phosphorus < 1.0 mg/dL (2.5-5.0)
[2019-12-26] MEDS ORDERED: Potassium Phosphate IV 15 MMOLE in NS 0.9% 250 ml 250 ML IVPB ONE (10:00)
[2019-12-26 12:52] LABS: Fluid Type, Amylase PLEURAL; Fluid Type, Glucose PLEURAL; Glucose, BF 112 mg/dL
[2019-12-26] MEDS ORDERED: Furosemide 20 mg/2 ml IV VIAL IV SLOW PU ONE (15:00)
[2019-12-26 15:03] LABS: TB1 Ag minus Nil Result -0.01 IU/mL
[2019-12-26 15:11] LABS: QuantiferonTb Gold Plus Result Negative (Negative)
[2019-12-26] MEDS ORDERED: TPN Peripheral STANDARD BASE A IV SCH (17:00)
[2019-12-26 18:43] LABS: Hematocrit 23 % (35-47); Hemoglobin 7.7 g/dL (12.0-16.0)
[2019-12-27] MEDS: Cefepime 1 GM in Dextrose 1 GM/50 ML BAG IV SCH ×3 (01:00→16:18)
[2019-12-27] MEDS: Vancomycin 750 MG in NS 0.9% 250 ML IVPB SCH ×3 (02:01→17:20)
[2019-12-27] MEDS ORDERED: Furosemide 40 mg/4 ml IV VIAL IV ONE (05:17)
[2019-12-27] MEDS: HYDROmorphone 1 MG/1 ML SYRINGE IV SLOW PU PRN ×2 (06:04→11:42)
[2019-12-27 06:10] LABS: Hematocrit 25 % (35-47); Hemoglobin 8.1 g/dL (12.0-16.0); Mean Corpuscular HGB Conc 33 g/dL (31-36); Mean Corpuscular Hemoglobin 32 pg (27-31); Mean Corpuscular Volume 96 fL (80-97); Mean Platelet Volume 9.3 fL (7.4-10.4); Platelet Count 127 10^3/uL (150-450); Red Blood Count 2.56 10^6 /uL (3.70-4.87); Red Cell Distribution Width 21 % (10-15); White Blood Count 12.4 10^3/uL (3.5-10.8)
[2019-12-27 06:15] LABS: INR 1.13 (0.82-1.09)
[2019-12-27 06:26] LABS: Anion Gap 1 mmol/L (2-11); Blood Urea Nitrogen 15 mg/dL (6-24); CO2 Carbon Dioxide 28 mmol/L (22-32); Calcium 7.3 mg/dL (8.6-10.3); Chloride 107 mmol/L (101-111); EGFR African American 284.9 (>60); EGFR Non-African American 235.5 (>60); Glucose 132 mg/dL (70-100); Magnesium 1.8 mg/dL (1.9-2.7); Phosphorus 1.8 mg/dL (2.5-5.0); Potassium 4.5 mmol/L (3.5-5.0); Sodium 136 mmol/L (135-145)
[2019-12-27 06:48] LABS: ABS Eosinophils 0.1 10^3/ul (0-0.6); ABS Lymphocytes 1.2 10^3/ul (1.0-4.8); ABS Monocytes 0.7 10^3/ul (0-0.8); ABS Neutrophils 10.3 10^3/ul (1.5-7.7); ABS Nucleated RBC 0.1 10^3/ul; Eosinophil % 0.9 %; Lymphocyte % 9.7 %; Nucleated Red Blood Cells % 0.6; Polychromasia 2+
[2019-12-27] MEDS: HYDROmorphone 1 MG/1 ML SYRINGE IV SLOW PU ONE ×2 (07:21→08:12)
[2019-12-27] MEDS: Pancrelipase 5,000 units CAP PO SCH ×3 (07:21→16:43)
[2019-12-27 08:01] LABS: Urine Appearance Clear; Urine Bilirubin Negative (Negative); Urine Blood Negative (Negative); Urine Color Colorless; Urine Glucose Negative (Negative); Urine Ketones Negative (Negative); Urine Nitrite Negative (Negative); Urine Protein Negative (Negative); Urine Specific Gravity 1.004 (1.010-1.030); Urine Urobilinogen Negative (Negative)
[2019-12-27] MEDS ORDERED: Furosemide 20 mg/2 ml IV VIAL ONE (09:42)
[2019-12-27] MEDS: Pantoprazole VIAL 40 MG VIAL IV SCH ×2 (09:49→20:50)
[2019-12-27] MEDS: Potassium Chlor 20 meq TAB.ER PO SCH (10:39)
[2019-12-27] MEDS: Calcium Carb 1250 mg TAB (500 mg elemental calcium) PO SCH ×2 (10:40→20:50)
[2019-12-27] MEDS: Cholestyramine Resin 4 GM POWDER PO SCH ×2 (10:40→20:50)
[2019-12-27] MEDS: Multivitamins/Minerals TAB PO SCH (10:41)
[2019-12-27] MEDS: Magnesium Chloride EC 64 mgTAB PO SCH ×2 (10:41→20:50)
[2019-12-27] MEDS ORDERED: Morphine 2 MG/ML SYRINGE ONE (15:03)
[2019-12-27] MEDS: Morphine 2 MG/ML SYRINGE IV ONE ×2 (15:05→15:09)
[2019-12-27] MEDS ORDERED: Lorazepam PYXIS KEY ONE ×2 (15:13→18:13)
[2019-12-27] MEDS ORDERED: LORazepam 2 mg VIAL 1 ml ONE ×2 (15:14→18:13)
[2019-12-27] MEDS: TPN 24 HR with D10W 1000 ml BAG 1,000 ML, Amino Acid Infusion 10% 850 ML, Sterile Water... IV SCH (17:21)
[2019-12-27] MEDS ORDERED: Lorazepam PYXIS KEY PRN (18:10)
[2019-12-27] MEDS: LORazepam 2 mg VIAL 1 ml IV PUSH PRN (18:14)
[2019-12-27] MEDS ORDERED: Furosemide 40 mg/4 ml IV VIAL IV SLOW PU ONE (18:16)
[2019-12-27] MEDS ORDERED: Furosemide 40 mg/4 ml IV VIAL ONE (18:17)
[2019-12-28] MEDS: Cefepime 1 GM in Dextrose 1 GM/50 ML BAG IV SCH ×4 (00:05→23:46)
[2019-12-28] MEDS: LORazepam 2 mg VIAL 1 ml IV PUSH PRN ×4 (00:58→14:57)
[2019-12-28] MEDS: Vancomycin 750 MG in NS 0.9% 250 ML IVPB SCH ×2 (01:33→10:14)
[2019-12-28] MEDS ORDERED: Lorazepam PYXIS KEY PRN ×2 (04:13→19:26)
[2019-12-28] MEDS ORDERED: LORazepam 2 mg VIAL 1 ml IV PUSH ONE (04:14)
[2019-12-28 05:24] LABS: Hematocrit 21 % (35-47); Hemoglobin 7.3 g/dL (12.0-16.0); Mean Corpuscular HGB Conc 35 g/dL (31-36); Mean Corpuscular Hemoglobin 35 pg (27-31); Mean Corpuscular Volume 100 fL (80-97); Mean Platelet Volume 9.3 fL (7.4-10.4); Platelet Count 127 10^3/uL (150-450); Red Blood Count 2.11 10^6 /uL (3.70-4.87); Red Cell Distribution Width 21 % (10-15); White Blood Count 8.2 10^3/uL (3.5-10.8)
[2019-12-28 05:47] LABS: ABS Basophils 0.1 10^3/ul (0-0.2); ABS Eosinophils 0.1 10^3/ul (0-0.6); ABS Monocytes 0.5 10^3/ul (0-0.8); ABS Neutrophils 6.6 10^3/ul (1.5-7.7); ABS Nucleated RBC 0.1 10^3/ul; Eosinophil % 0.7 %; Lymphocyte % 12.5 %; Nucleated Red Blood Cells % 0.7
[2019-12-28 06:33] LABS: ABS Basophils 0.1 10^3/ul (0-0.2); ABS Lymphocytes 1.2 10^3/ul (1.0-4.8); ABS Monocytes 0.5 10^3/ul (0-0.8); ABS Neutrophils 8.1 10^3/ul (1.5-7.7); ABS Nucleated RBC 0.1 10^3/ul; Eosinophil % 0.5 %; Hematocrit 23 % (35-47); Hemoglobin 7.8 g/dL (12.0-16.0); Lymphocyte % 12.2 %; Mean Corpuscular HGB Conc 34 g/dL (31-36); Mean Corpuscular Hemoglobin 33 pg (27-31); Mean Corpuscular Volume 97 fL (80-97); Mean Platelet Volume 9.1 fL (7.4-10.4); Nucleated Red Blood Cells % 0.5; Platelet Count 143 10^3/uL (150-450); Red Blood Count 2.36 10^6 /uL (3.70-4.87); Red Cell Distribution Width 21 % (10-15); White Blood Count 9.9 10^3/uL (3.5-10.8)
[2019-12-28 06:47] LABS: ALT 12 U/L (7-52); AST 21 U/L (13-39); Albumin/Globulin Ratio 0.9 (1-3); Alkaline Phosphatase 109 U/L (34-104); Anion Gap 1 mmol/L (2-11); Blood Urea Nitrogen 18 mg/dL (6-24); CO2 Carbon Dioxide 30 mmol/L (22-32); Calcium 7.1 mg/dL (8.6-10.3); Chloride 105 mmol/L (101-111); Cholesterol 88 mg/dL; EGFR African American 284.9 (>60); EGFR Non-African American 235.5 (>60); Globulin 2.3 g/dL (2-4); Glucose 128 mg/dL (70-100); Potassium 4.1 mmol/L (3.5-5.0); Prealbumin 10 mg/dL (18-38); Sodium 136 mmol/L (135-145); Total Protein 4.3 g/dL (6.4-8.9); Triglycerides 121 mg/dL
[2019-12-28] MEDS: Pancrelipase 5,000 units CAP PO SCH ×3 (07:29→16:31)
[2019-12-28] MEDS ORDERED: Lorazepam PYXIS KEY ONE ×3 (07:57→18:26)
[2019-12-28] MEDS ORDERED: Furosemide 40 mg/4 ml IV VIAL IV SLOW PU ONE (08:28)
[2019-12-28] MEDS ORDERED: Vancomycin Trough Check NOTE FOLLOW UP ONE (08:30)
[2019-12-28] MEDS: Cholestyramine Resin 4 GM POWDER PO SCH ×2 (09:10→21:13)
[2019-12-28] MEDS: Calcium Carb 1250 mg TAB (500 mg elemental calcium) PO SCH ×2 (09:10→21:13)
[2019-12-28] MEDS: Magnesium Chloride EC 64 mgTAB PO SCH ×2 (09:10→23:16)
[2019-12-28] MEDS: Multivitamins/Minerals TAB PO SCH (09:10)
[2019-12-28] MEDS: Pantoprazole VIAL 40 MG VIAL IV SCH ×2 (10:15→21:14)
[2019-12-28] MEDS ORDERED: LORazepam 2 mg VIAL 1 ml ONE ×2 (14:55→18:26)
[2019-12-28] MEDS: methylPREDNISolone 125 mg 2 ML VIAL IV SCH ×2 (15:08→21:16)
[2019-12-28] MEDS: TPN 24 HR with D10W 1000 ml BAG 1,000 ML, Amino Acid Infusion 10% 850 ML, Sterile Water... IV SCH (16:43)
[2019-12-28] MEDS ORDERED: Succinylcholine 200 mg VIAL 20 mg/ml 10 ml VIAL (200 mg) ONE (16:58)
[2019-12-28] MEDS ORDERED: Midazolam 10 mg/10 ml VIAL 1 mg/ml 10 ml VIAL (10 mg) ONE (17:00)
[2019-12-28] MEDS ORDERED: fentaNYL 100 mcg/2 ml 50 MCG/ML VIAL ONE (17:00)
[2019-12-28] MEDS ORDERED: Etomidate 40 mg/20 ml (2 MG/ML) 20 ml VIAL (40 mg) ONE (17:00)
[2019-12-28] MEDS ORDERED: Propofol 10 mg/ml 100 ML BTL 100 ML ONE (17:17)
[2019-12-28] MEDS ORDERED: Propofol 10 MG/ML 20 ML BTL ONE (17:17)
[2019-12-28] MEDS ORDERED: Propofol 10 mg/ml 100 ML BTL 100 ML IV SCH (18:00)
[2019-12-28] MEDS: Chlorhexidine MOUTHWASH 0.12% 15 ML UDC TOPICAL SCH ×2 (18:32→21:14)
[2019-12-28] MEDS: fentaNYL INFUSION 50 MCG/ML 2,500 MCG/50 ML BAG IV SCH (19:56)
[2019-12-28 22:52] LABS: Alpha 1 Antitrypsin Stool 74 mg/dL (<= 54)
[2019-12-29] MEDS: LORazepam 2 mg VIAL 1 ml IV PUSH PRN ×2 (01:00→12:51)
[2019-12-29] MEDS: Propofol* 20 ML VIAL - FOR IV LINE PRIMING ONLY SCH ×2 (01:49→13:14)
[2019-12-29] MEDS: Propofol 10 mg/ml 100 ML BTL 100 ML IV SCH ×4 (01:50→19:57)
[2019-12-29] MEDS: methylPREDNISolone 125 mg 2 ML VIAL IV SCH ×4 (02:25→21:04)
[2019-12-29] MEDS: Chlorhexidine MOUTHWASH 0.12% 15 ML UDC TOPICAL SCH ×6 (02:26→21:04)
[2019-12-29 04:21] LABS: ABS Lymphocytes 0.4 10^3/ul (1.0-4.8); ABS Monocytes 0.2 10^3/ul (0-0.8); Eosinophil % 0.1 %; Hematocrit 21 % (35-47); Hemoglobin 6.7 g/dL (12.0-16.0); Lymphocyte % 7.6 %; Mean Corpuscular HGB Conc 33 g/dL (31-36); Mean Corpuscular Hemoglobin 33 pg (27-31); Mean Corpuscular Volume 100 fL (80-97); Mean Platelet Volume 9.1 fL (7.4-10.4); Nucleated Red Blood Cells % 0.4; Platelet Count 155 10^3/uL (150-450); Red Blood Count 2.05 10^6 /uL (3.70-4.87); Red Cell Distribution Width 21 % (10-15); White Blood Count 5.7 10^3/uL (3.5-10.8)
[2019-12-29 04:37] LABS: Anion Gap 2 mmol/L (2-11); Blood Urea Nitrogen 24 mg/dL (6-24); CO2 Carbon Dioxide 26 mmol/L (22-32); Calcium 7.2 mg/dL (8.6-10.3); Chloride 104 mmol/L (101-111); EGFR African American 284.9 (>60); EGFR Non-African American 235.5 (>60); Glucose 178 mg/dL (70-100); Magnesium 2.1 mg/dL (1.9-2.7); Phosphorus 2.3 mg/dL (2.5-5.0); Sodium 132 mmol/L (135-145)
[2019-12-29] MEDS: Pantoprazole VIAL 40 MG VIAL IV SCH ×2 (09:54→21:04)
[2019-12-29] MEDS: Multivitamins/Minerals TAB PO SCH (09:54)
[2019-12-29] MEDS: Pancrelipase 5,000 units CAP PO SCH ×3 (09:54→16:18)
[2019-12-29] MEDS: Cholestyramine Resin 4 GM POWDER PO SCH (09:55)
[2019-12-29] MEDS: Calcium Carb 1250 mg TAB (500 mg elemental calcium) PO SCH (09:55)
[2019-12-29] MEDS: Cefepime 1 GM in Dextrose 1 GM/50 ML BAG IV SCH ×2 (09:56→16:19)
[2019-12-29] MEDS: fentaNYL INFUSION 50 MCG/ML 2,500 MCG/50 ML BAG IV SCH (10:32)
[2019-12-29 16:45] LABS: Hematocrit 26 % (35-47); Hemoglobin 8.8 g/dL (12.0-16.0); Mean Corpuscular HGB Conc 34 g/dL (31-36); Mean Corpuscular Hemoglobin 33 pg (27-31); Mean Corpuscular Volume 97 fL (80-97); Mean Platelet Volume 9.3 fL (7.4-10.4); Platelet Count 170 10^3/uL (150-450); Red Blood Count 2.68 10^6 /uL (3.70-4.87); Red Cell Distribution Width 20 % (10-15); White Blood Count 8.4 10^3/uL (3.5-10.8)
[2019-12-29 17:09] LABS: ABS Basophils 0.1 10^3/ul (0-0.2); ABS Lymphocytes 0.6 10^3/ul (1.0-4.8); ABS Monocytes 0.5 10^3/ul (0-0.8); ABS Neutrophils 7.3 10^3/ul (1.5-7.7); Lymphocyte % 7.4 %; Nucleated Red Blood Cells % 0.1
[2019-12-29] MEDS: TPN 24 HR with D10W 1000 ml BAG 1,000 ML, Amino Acid Infusion 10% 850 ML, Sterile Water... IV SCH (18:35)
[2019-12-30] MEDS: Cefepime 1 GM in Dextrose 1 GM/50 ML BAG IV SCH ×4 (00:16→23:51)
[2019-12-30] MEDS: Propofol* 20 ML VIAL - FOR IV LINE PRIMING ONLY SCH ×3 (00:16→22:19)
[2019-12-30] MEDS ORDERED: Dextrose 50% Syringe 50 ml 25 GM/50 ML SYRINGE IV PUSH PRN (00:44)
[2019-12-30] MEDS ORDERED: Lorazepam PYXIS KEY PRN (01:00)
[2019-12-30] MEDS ORDERED: LORazepam 2 mg VIAL 1 ml IV PUSH ONE (01:00)
[2019-12-30] MEDS: Propofol 10 mg/ml 100 ML BTL 100 ML IV SCH ×5 (01:26→20:57)
[2019-12-30] MEDS: Chlorhexidine MOUTHWASH 0.12% 15 ML UDC TOPICAL SCH ×6 (01:49→21:07)
[2019-12-30] MEDS: methylPREDNISolone 125 mg 2 ML VIAL IV SCH ×4 (03:39→21:01)
[2019-12-30 05:34] LABS: Hematocrit 25 % (35-47); Hemoglobin 8.6 g/dL (12.0-16.0); Mean Corpuscular HGB Conc 34 g/dL (31-36); Mean Corpuscular Hemoglobin 33 pg (27-31); Mean Corpuscular Volume 97 fL (80-97); Mean Platelet Volume 8.7 fL (7.4-10.4); Platelet Count 191 10^3/uL (150-450); Red Blood Count 2.62 10^6 /uL (3.70-4.87); Red Cell Distribution Width 21 % (10-15); White Blood Count 7.1 10^3/uL (3.5-10.8)
[2019-12-30 05:49] LABS: Blood Urea Nitrogen 25 mg/dL (6-24); CO2 Carbon Dioxide 25 mmol/L (22-32); Calcium 7.7 mg/dL (8.6-10.3); Chloride 101 mmol/L (101-111); EGFR African American 284.9 (>60); EGFR Non-African American 235.5 (>60); Glucose 247 mg/dL (70-100); Sodium 127 mmol/L (135-145)
[2019-12-30 05:50] LABS: Anion Gap 1 mmol/L (2-11); Potassium 5.9 mmol/L (3.5-5.0)
[2019-12-30 06:32] LABS: Polychromasia 1+
[2019-12-30 06:35] LABS: ABS Lymphocytes 0.4 10^3/ul (1.0-4.8); ABS Monocytes 0.5 10^3/ul (0-0.8); ABS Neutrophils 6.2 10^3/ul (1.5-7.7); Lymphocyte % 5.6 %; Nucleated Red Blood Cells % 0.1
[2019-12-30] MEDS: Pancrelipase 5,000 units CAP PO SCH ×3 (08:17→15:49)
[2019-12-30] MEDS: Pantoprazole VIAL 40 MG VIAL IV SCH ×2 (08:18→20:57)
[2019-12-30] MEDS: fentaNYL INFUSION 50 MCG/ML 2,500 MCG/50 ML BAG IV SCH ×2 (09:05→23:00)
[2019-12-30 16:52] LABS: Blood Urea Nitrogen 23 mg/dL (6-24); CO2 Carbon Dioxide 25 mmol/L (22-32); Calcium 7.9 mg/dL (8.6-10.3); Chloride 103 mmol/L (101-111); EGFR African American 284.9 (>60); EGFR Non-African American 235.5 (>60); Glucose 179 mg/dL (70-100); Sodium 129 mmol/L (135-145)
[2019-12-30 16:53] LABS: Anion Gap 1 mmol/L (2-11); Potassium 5.7 mmol/L (3.5-5.0)
[2019-12-31] MEDS: Propofol 10 mg/ml 100 ML BTL 100 ML IV SCH ×6 (02:16→23:25)
[2019-12-31] MEDS: Chlorhexidine MOUTHWASH 0.12% 15 ML UDC TOPICAL SCH ×6 (02:41→21:10)
[2019-12-31] MEDS: methylPREDNISolone 125 mg 2 ML VIAL IV SCH ×4 (02:42→21:10)
[2019-12-31 04:03] LABS: ABS Lymphocytes 0.4 10^3/ul (1.0-4.8); ABS Monocytes 0.6 10^3/ul (0-0.8); ABS Neutrophils 6.3 10^3/ul (1.5-7.7); Hematocrit 27 % (35-47); Hemoglobin 9.3 g/dL (12.0-16.0); Lymphocyte % 5.3 %; Mean Corpuscular HGB Conc 34 g/dL (31-36); Mean Corpuscular Hemoglobin 34 pg (27-31); Mean Corpuscular Volume 99 fL (80-97); Mean Platelet Volume 8.9 fL (7.4-10.4); Platelet Count 225 10^3/uL (150-450); Red Blood Count 2.71 10^6 /uL (3.70-4.87); Red Cell Distribution Width 24 % (10-15); White Blood Count 7.3 10^3/uL (3.5-10.8)
[2019-12-31 04:12] LABS: Blood Urea Nitrogen 22 mg/dL (6-24); CO2 Carbon Dioxide 23 mmol/L (22-32); Calcium 7.4 mg/dL (8.6-10.3); Chloride 99 mmol/L (101-111); EGFR African American 284.9 (>60); EGFR Non-African American 235.5 (>60); Glucose 180 mg/dL (70-100); Sodium 124 mmol/L (135-145)
[2019-12-31 04:20] LABS: Anion Gap 2 mmol/L (2-11); Potassium 5.3 mmol/L (3.5-5.0)
[2019-12-31] MEDS: fentaNYL INFUSION 50 MCG/ML 2,500 MCG/50 ML BAG IV SCH (07:06)
[2019-12-31] MEDS: Pantoprazole VIAL 40 MG VIAL IV SCH ×2 (08:26→21:10)
[2019-12-31] MEDS: Pancrelipase 5,000 units CAP PO SCH ×3 (08:26→16:23)
[2019-12-31] MEDS: Cefepime 1 GM in Dextrose 1 GM/50 ML BAG IV SCH ×2 (08:26→15:33)
[2019-12-31] MEDS: Propofol* 20 ML VIAL - FOR IV LINE PRIMING ONLY SCH ×2 (11:02→23:26)
[2019-12-31] MEDS: Furosemide 40 mg/4 ml IV VIAL IV SLOW PU SCH (17:14)
[2019-12-31] MEDS ORDERED: LORazepam 2 mg VIAL 1 ml ONE (21:59)
[2019-12-31] MEDS: LORazepam 2 mg VIAL 1 ml IV PUSH PRN (22:08)
[2020-01-01] MEDS: Cefepime 1 GM in Dextrose 1 GM/50 ML BAG IV SCH ×2 (00:16→07:56)
[2020-01-01] MEDS: Chlorhexidine MOUTHWASH 0.12% 15 ML UDC TOPICAL SCH ×6 (02:01→20:55)
[2020-01-01] MEDS: methylPREDNISolone 125 mg 2 ML VIAL IV SCH ×4 (02:01→20:55)
[2020-01-01 04:23] LABS: ABS Lymphocytes 0.2 10^3/ul (1.0-4.8); ABS Monocytes 0.4 10^3/ul (0-0.8); ABS Neutrophils 5.6 10^3/ul (1.5-7.7); Hematocrit 28 % (35-47); Hemoglobin 9.3 g/dL (12.0-16.0); Lymphocyte % 3.9 %; Mean Corpuscular HGB Conc 33 g/dL (31-36); Mean Corpuscular Hemoglobin 33 pg (27-31); Mean Corpuscular Volume 98 fL (80-97); Mean Platelet Volume 8.2 fL (7.4-10.4); Nucleated Red Blood Cells % 0.1; Platelet Count 241 10^3/uL (150-450); Red Blood Count 2.82 10^6 /uL (3.70-4.87); Red Cell Distribution Width 25 % (10-15); White Blood Count 6.2 10^3/uL (3.5-10.8)
[2020-01-01 04:26] LABS: Anion Gap 3 mmol/L (2-11); Blood Urea Nitrogen 23 mg/dL (6-24); CO2 Carbon Dioxide 27 mmol/L (22-32); Chloride 102 mmol/L (101-111); EGFR African American 284.9 (>60); EGFR Non-African American 235.5 (>60); Glucose 233 mg/dL (70-100); Magnesium 1.8 mg/dL (1.9-2.7); Potassium 4.7 mmol/L (3.5-5.0); Sodium 132 mmol/L (135-145)
[2020-01-01] MEDS ORDERED: Magnesium Sulfate 2 gm BAG 2 GM/50 ML BAG IVPB ONE (05:23)
[2020-01-01] MEDS: LORazepam 2 mg VIAL 1 ml IV PUSH PRN ×2 (06:25→19:07)
[2020-01-01] MEDS: Pantoprazole VIAL 40 MG VIAL IV SCH (07:56)
[2020-01-01] MEDS: Pancrelipase 5,000 units CAP PO SCH ×3 (07:56→17:41)
[2020-01-01] MEDS: Furosemide 40 mg/4 ml IV VIAL IV SLOW PU SCH (07:56)
[2020-01-01] MEDS: Propofol 10 mg/ml 100 ML BTL 100 ML IV SCH ×4 (08:50→22:09)
[2020-01-01] MEDS ORDERED: Acetylcysteine INHALATION SOL 200 MG/ML NEB.SOLN 10 ML ONE (10:38)
[2020-01-01] MEDS: fentaNYL INFUSION 50 MCG/ML 2,500 MCG/50 ML BAG IV SCH (11:29)
[2020-01-01] MEDS: Propofol* 20 ML VIAL - FOR IV LINE PRIMING ONLY SCH ×2 (12:26→23:57)
[2020-01-01] MEDS ORDERED: Lorazepam PYXIS KEY PRN (13:24)
[2020-01-01] MEDS ORDERED: LORazepam 2 mg VIAL 1 ml IV PUSH ONE (13:24)
[2020-01-01] MEDS: Enoxaparin 40 MG/0.4 ML SYR SUBCUT SCH (15:10)
[2020-01-01] MEDS: Zinc Oxide 16% PASTE (Butt Paste) 30 gm TUBE TOPICAL SCH ×2 (17:42→20:56)
[2020-01-01] MEDS ORDERED: Furosemide 40 mg/4 ml IV VIAL IV SLOW PU SCH (19:00)
[2020-01-02] MEDS: Propofol 10 mg/ml 100 ML BTL 100 ML IV SCH ×2 (02:36→06:52)
[2020-01-02] MEDS: methylPREDNISolone 125 mg 2 ML VIAL IV SCH (02:36)
[2020-01-02] MEDS: Chlorhexidine MOUTHWASH 0.12% 15 ML UDC TOPICAL SCH ×4 (02:36→13:56)
[2020-01-02 04:58] LABS: Anion Gap 4 mmol/L (2-11); Blood Urea Nitrogen 26 mg/dL (6-24); CO2 Carbon Dioxide 29 mmol/L (22-32); Calcium 7.2 mg/dL (8.6-10.3); Chloride 98 mmol/L (101-111); EGFR African American 284.9 (>60); EGFR Non-African American 235.5 (>60); Glucose 224 mg/dL (70-100); Magnesium 1.7 mg/dL (1.9-2.7); Potassium 4.1 mmol/L (3.5-5.0); Sodium 131 mmol/L (135-145)
[2020-01-02] MEDS: LORazepam 2 mg VIAL 1 ml IV PUSH PRN ×3 (05:01→20:20)
[2020-01-02 05:02] LABS: ABS Lymphocytes 0.2 10^3/ul (1.0-4.8); ABS Monocytes 0.4 10^3/ul (0-0.8); ABS Neutrophils 4.3 10^3/ul (1.5-7.7); Hematocrit 24 % (35-47); Hemoglobin 8.4 g/dL (12.0-16.0); Lymphocyte % 4.7 %; Mean Corpuscular HGB Conc 35 g/dL (31-36); Mean Corpuscular Hemoglobin 34 pg (27-31); Mean Corpuscular Volume 98 fL (80-97); Mean Platelet Volume 8.7 fL (7.4-10.4); Nucleated Red Blood Cells % 0.1; Platelet Count 239 10^3/uL (150-450); Red Blood Count 2.47 10^6 /uL (3.70-4.87); Red Cell Distribution Width 25 % (10-15); White Blood Count 4.9 10^3/uL (3.5-10.8)
[2020-01-02] MEDS: fentaNYL INFUSION 50 MCG/ML 2,500 MCG/50 ML BAG IV SCH (05:59)
[2020-01-02] MEDS: Pantoprazole VIAL 40 MG VIAL IV SCH (07:57)
[2020-01-02] MEDS: Pancrelipase 5,000 units CAP PO SCH ×3 (07:57→15:41)
[2020-01-02] MEDS: Zinc Oxide 16% PASTE (Butt Paste) 30 gm TUBE TOPICAL SCH ×3 (07:58→20:20)
[2020-01-02] MEDS ORDERED: CASPOFUNGIN IV SCH (08:00)
[2020-01-02] MEDS ORDERED: NS 0.9% IV SCH (08:00)
[2020-01-02] MEDS ORDERED: methylPREDNISolone 125 mg 2 ML VIAL IV SCH (08:00)
[2020-01-02] MEDS: methylPREDNISolone SOD 40 mg/ml 1 ml VIAL IV SCH ×2 (08:15→15:41)
[2020-01-02] MEDS ORDERED: Anidulafungin 200 MG in NS 0.9% 200 ML IVPB ONE (09:00)
[2020-01-02] MEDS: Furosemide 40 mg/4 ml IV VIAL IV SLOW PU SCH (09:09)
[2020-01-02] MEDS ORDERED: Dexmedetomidine 1,000 MCG in NS 0.9% 250 ml 240 ML IV SCH (10:00)
[2020-01-02] MEDS ORDERED: Magnesium Sulfate IV 3 GM in NS 0.9% 100 ml BAG 100 ML IVPB ONE (10:13)
[2020-01-02] MEDS: Propofol* 20 ML VIAL - FOR IV LINE PRIMING ONLY SCH (11:01)
[2020-01-02] MEDS: Morphine 2 MG/ML SYRINGE IV PRN ×2 (11:37→18:11)
[2020-01-02] MEDS ORDERED: ceFAZolin VIAL 2 GM in NS 0.9% 100 ml BAG 100 ML IVPB SCH (12:00)
[2020-01-02] MEDS: ceFAZolin 2 GM PREMIX 2 GM/50 ML BAG IVPB SCH ×2 (12:15→19:38)
[2020-01-02] MEDS: Enoxaparin 40 MG/0.4 ML SYR SUBCUT SCH (14:18)
[2020-01-02] MEDS: Collagenase 250 units/gm OINT 1 tube TOPICAL SCH ×2 (15:30→20:20)
[2020-01-02] MEDS ORDERED: Haloperidol 5 mg/ml SDV IV/IM 5 MG/ML AMP IM PRN (16:26)
[2020-01-02 17:25] LABS: C Reactive Protein 2.39 mg/L (<8.01)
[2020-01-02] MEDS: Haloperidol 5 mg/ml SDV IV/IM 5 MG/ML AMP IV SLOW PU PRN (19:38)
[2020-01-03] MEDS: methylPREDNISolone SOD 40 mg/ml 1 ml VIAL IV SCH ×4 (00:19→20:20)
[2020-01-03] MEDS: Morphine 2 MG/ML SYRINGE IV PRN ×5 (00:28→18:50)
[2020-01-03] MEDS: Haloperidol 5 mg/ml SDV IV/IM 5 MG/ML AMP IV SLOW PU PRN ×3 (01:53→22:37)
[2020-01-03] MEDS: LORazepam 2 mg VIAL 1 ml IV PUSH PRN ×3 (02:29→20:50)
[2020-01-03] MEDS ORDERED: Furosemide 20 mg/2 ml IV VIAL IV ONE (03:48)
[2020-01-03] MEDS ORDERED: Furosemide 20 mg/2 ml IV VIAL ONE (04:03)
[2020-01-03] MEDS: ceFAZolin 2 GM PREMIX 2 GM/50 ML BAG IVPB SCH (04:17)
[2020-01-03 04:47] LABS: Anion Gap 6 mmol/L (2-11); Blood Urea Nitrogen 21 mg/dL (6-24); CO2 Carbon Dioxide 29 mmol/L (22-32); Calcium 7.5 mg/dL (8.6-10.3); Chloride 102 mmol/L (101-111); EGFR African American 284.9 (>60); EGFR Non-African American 235.5 (>60); Glucose 109 mg/dL (70-100); Magnesium 1.9 mg/dL (1.9-2.7); Potassium 3.5 mmol/L (3.5-5.0); Sodium 137 mmol/L (135-145); Urine Appearance Turbid; Urine Bilirubin Negative (Negative); Urine Blood 1+ (Negative); Urine Color Yellow; Urine Glucose Negative (Negative); Urine Ketones Negative (Negative); Urine Nitrite Negative (Negative); Urine Protein Negative (Negative); Urine Urobilinogen Negative (Negative)
[2020-01-03 04:49] LABS: ABS Lymphocytes 0.5 10^3/ul (1.0-4.8); ABS Monocytes 0.6 10^3/ul (0-0.8); ABS Neutrophils 10.5 10^3/ul (1.5-7.7); Hematocrit 27 % (35-47); Hemoglobin 9.2 g/dL (12.0-16.0); Mean Corpuscular HGB Conc 34 g/dL (31-36); Mean Corpuscular Hemoglobin 33 pg (27-31); Mean Corpuscular Volume 98 fL (80-97); Platelet Count 285 10^3/uL (150-450); Red Blood Count 2.76 10^6 /uL (3.70-4.87); Red Cell Distribution Width 25 % (10-15); White Blood Count 11.6 10^3/uL (3.5-10.8)
[2020-01-03 04:55] LABS: Urine Bacteria 1+ (Absent); Urine Red Blood Cell 2+(6-10/hpf) (Absent); Urine White Blood Cell 2+(11-20/hpf) (Absent)
[2020-01-03] MEDS: Pancrelipase 5,000 units CAP PO SCH ×3 (07:20→15:30)
[2020-01-03] MEDS ORDERED: Vancomycin 1,000 MG in NS 0.9% 250 ml 250 ML IVPB ONE (08:41)
[2020-01-03] MEDS ORDERED: Anidulafungin 100 MG in NS 0.9% 100 ML IVPB SCH (09:00)
[2020-01-03] MEDS ORDERED: Vancomycin per Pharmacy 1 EA NOTE FOLLOW UP SCH (09:00)
[2020-01-03] MEDS: Zinc Oxide 16% PASTE (Butt Paste) 30 gm TUBE TOPICAL SCH ×3 (09:05→20:27)
[2020-01-03] MEDS: Meropenem 500MG PREMIX(*) 500 MG/50 ML BAG IV SCH ×2 (09:11→16:27)
[2020-01-03] MEDS: Collagenase 250 units/gm OINT 1 tube TOPICAL SCH ×2 (09:11→20:26)
[2020-01-03] MEDS ORDERED: Furosemide 40 mg/4 ml IV VIAL IV SLOW PU ONE (09:18)
[2020-01-03] MEDS: Pantoprazole VIAL 40 MG VIAL IV SCH (10:04)
[2020-01-03] MEDS: Enoxaparin 40 MG/0.4 ML SYR SUBCUT SCH (13:42)
[2020-01-03] MEDS ORDERED: Lorazepam PYXIS KEY PRN (14:17)
[2020-01-03] MEDS ORDERED: LORazepam 2 mg VIAL 1 ml IV PUSH ONE (14:18)
[2020-01-03] MEDS ORDERED: Lorazepam PYXIS KEY ONE (16:13)
[2020-01-03] MEDS ORDERED: LORazepam 2 mg VIAL 1 ml ONE (16:13)
[2020-01-03] MEDS: Vancomycin 750 MG in NS 0.9% 250 ML IVPB SCH (16:22)
[2020-01-03 17:01] LABS: Anion Gap 4 mmol/L (2-11); Blood Urea Nitrogen 15 mg/dL (6-24); CO2 Carbon Dioxide 30 mmol/L (22-32); Calcium 7.1 mg/dL (8.6-10.3); Chloride 103 mmol/L (101-111); EGFR African American 284.9 (>60); EGFR Non-African American 235.5 (>60); Glucose 94 mg/dL (70-100); Potassium 3.1 mmol/L (3.5-5.0); Sodium 137 mmol/L (135-145)
[2020-01-03] MEDS: KCL 20 MEQ/100 ML IVPREMIX 20 MEQ/100 ML BAG IV SCH ×2 (18:35→20:53)
[2020-01-03] MEDS ORDERED: Furosemide 20 mg/2 ml IV VIAL IV SLOW PU ONE (20:00)
[2020-01-04] MEDS: Morphine 2 MG/ML SYRINGE IV PRN ×2 (00:59→20:40)
[2020-01-04] MEDS: Vancomycin 750 MG in NS 0.9% 250 ML IVPB SCH ×3 (01:00→17:40)
[2020-01-04] MEDS: Meropenem 500MG PREMIX(*) 500 MG/50 ML BAG IV SCH ×3 (01:00→19:38)
[2020-01-04] MEDS ORDERED: LORazepam 2 mg VIAL 1 ml IV PUSH ONE (01:57)
[2020-01-04] MEDS ORDERED: Lorazepam PYXIS KEY PRN (01:57)
[2020-01-04 04:15] LABS: Hematocrit 26 % (35-47); Hemoglobin 8.6 g/dL (12.0-16.0); Mean Corpuscular HGB Conc 33 g/dL (31-36); Mean Corpuscular Hemoglobin 33 pg (27-31); Mean Corpuscular Volume 99 fL (80-97); Mean Platelet Volume 8.2 fL (7.4-10.4); Platelet Count 264 10^3/uL (150-450); Red Blood Count 2.63 10^6 /uL (3.70-4.87); Red Cell Distribution Width 24 % (10-15); White Blood Count 8.1 10^3/uL (3.5-10.8)
[2020-01-04 04:27] LABS: Anion Gap 6 mmol/L (2-11); Blood Urea Nitrogen 16 mg/dL (6-24); CO2 Carbon Dioxide 28 mmol/L (22-32); Calcium 7.6 mg/dL (8.6-10.3); Chloride 101 mmol/L (101-111); EGFR African American 284.9 (>60); EGFR Non-African American 235.5 (>60); Glucose 91 mg/dL (70-100); Magnesium 1.6 mg/dL (1.9-2.7); Potassium 3.8 mmol/L (3.5-5.0); Sodium 135 mmol/L (135-145)
[2020-01-04] MEDS ORDERED: Magnesium Sulfate IV 3 GM in NS 0.9% 100 ml BAG 100 ML IVPB ONE (07:18)
[2020-01-04] MEDS ORDERED: KCL 20 MEQ/100 ML IVPREMIX 20 MEQ/100 ML BAG IV ONE (08:01)
[2020-01-04] MEDS ORDERED: Furosemide 40 mg/4 ml IV VIAL IV ONE (08:01)
[2020-01-04] MEDS: Pancrelipase 5,000 units CAP PO SCH ×3 (08:45→17:41)
[2020-01-04] MEDS: methylPREDNISolone SOD 40 mg/ml 1 ml VIAL IV SCH ×2 (08:57→20:30)
[2020-01-04] MEDS: Pantoprazole VIAL 40 MG VIAL IV SCH (08:57)
[2020-01-04] MEDS: Zinc Oxide 16% PASTE (Butt Paste) 30 gm TUBE TOPICAL SCH ×3 (09:08→20:30)
[2020-01-04] MEDS: Collagenase 250 units/gm OINT 1 tube TOPICAL SCH ×2 (09:09→20:30)
[2020-01-04] MEDS: Anidulafungin 100 MG in NS 0.9% 100 ML IVPB SCH (12:45)
[2020-01-04] MEDS: Enoxaparin 40 MG/0.4 ML SYR SUBCUT SCH (15:05)
[2020-01-04] MEDS: LORazepam 2 mg VIAL 1 ml IV PUSH PRN (20:39)
[2020-01-05] MEDS: Vancomycin 750 MG in NS 0.9% 250 ML IVPB SCH ×3 (01:13→17:44)
[2020-01-05] MEDS: Meropenem 500MG PREMIX(*) 500 MG/50 ML BAG IV SCH ×3 (02:21→19:34)
[2020-01-05] MEDS: Morphine 2 MG/ML SYRINGE IV PRN ×3 (03:25→23:24)
[2020-01-05 04:51] LABS: Anion Gap 6 mmol/L (2-11); Blood Urea Nitrogen 14 mg/dL (6-24); CO2 Carbon Dioxide 27 mmol/L (22-32); Calcium 7.5 mg/dL (8.6-10.3); Chloride 101 mmol/L (101-111); EGFR African American 284.9 (>60); EGFR Non-African American 235.5 (>60); Glucose 119 mg/dL (70-100); Magnesium 1.8 mg/dL (1.9-2.7); Potassium 3.8 mmol/L (3.5-5.0); Sodium 134 mmol/L (135-145)
[2020-01-05] MEDS ORDERED: Magnesium Sulfate IV 3 GM in NS 0.9% 100 ml BAG 100 ML IVPB ONE (07:37)
[2020-01-05] MEDS: Pancrelipase 5,000 units CAP PO SCH ×3 (08:00→17:44)
[2020-01-05] MEDS: methylPREDNISolone SOD 40 mg/ml 1 ml VIAL IV SCH ×2 (08:01→21:48)
[2020-01-05] MEDS: Pantoprazole VIAL 40 MG VIAL IV SCH (08:01)
[2020-01-05] MEDS ORDERED: Vancomycin Trough Check NOTE FOLLOW UP ONE (08:30)
[2020-01-05] MEDS ORDERED: Albuterol/Ipratropium NEB.SOL (2.5/0.5 MG) 3 ML NEB.SOLN INH SCH (08:35)
[2020-01-05] MEDS ORDERED: LORazepam 2 mg VIAL 1 ml ONE (09:12)
[2020-01-05] MEDS: Zinc Oxide 16% PASTE (Butt Paste) 30 gm TUBE TOPICAL SCH ×3 (10:30→21:48)
[2020-01-05] MEDS: Collagenase 250 units/gm OINT 1 tube TOPICAL SCH ×2 (10:35→21:48)
[2020-01-05] MEDS: Anidulafungin 100 MG in NS 0.9% 100 ML IVPB SCH (12:07)
[2020-01-05] MEDS: Enoxaparin 40 MG/0.4 ML SYR SUBCUT SCH (14:39)
[2020-01-05] MEDS: Albuterol/Ipratropium NEB.SOL (2.5/0.5 MG) 3 ML NEB.SOLN INH SCH ×3 (15:24→23:06)
[2020-01-06] MEDS: Vancomycin 750 MG in NS 0.9% 250 ML IVPB SCH ×3 (00:13→17:00)
[2020-01-06] MEDS: Meropenem 500MG PREMIX(*) 500 MG/50 ML BAG IV SCH ×3 (03:03→19:27)
[2020-01-06] MEDS: LORazepam 2 mg VIAL 1 ml IV PUSH PRN (03:53)
[2020-01-06] MEDS: Albuterol/Ipratropium NEB.SOL (2.5/0.5 MG) 3 ML NEB.SOLN INH SCH ×7 (04:07→23:50)
[2020-01-06 04:22] LABS: Anion Gap 6 mmol/L (2-11); Blood Urea Nitrogen 8 mg/dL (6-24); CO2 Carbon Dioxide 25 mmol/L (22-32); Calcium 7.8 mg/dL (8.6-10.3); Chloride 103 mmol/L (101-111); EGFR African American 284.9 (>60); EGFR Non-African American 235.5 (>60); Glucose 128 mg/dL (70-100); Magnesium 1.9 mg/dL (1.9-2.7); Phosphorus 2.7 mg/dL (2.5-5.0); Potassium 3.7 mmol/L (3.5-5.0); Sodium 134 mmol/L (135-145)
[2020-01-06] MEDS ORDERED: Magnesium Sulfate 2 gm BAG 2 GM/50 ML BAG IVPB ONE (07:20)
[2020-01-06] MEDS ORDERED: NS 0.9% 250 ml 250 ML ONE (07:56)
[2020-01-06] MEDS: Pantoprazole VIAL 40 MG VIAL IV SCH (08:37)
[2020-01-06] MEDS: Pancrelipase 5,000 units CAP PO SCH ×3 (08:37→17:00)
[2020-01-06] MEDS: Collagenase 250 units/gm OINT 1 tube TOPICAL SCH ×2 (08:37→22:13)
[2020-01-06] MEDS: Zinc Oxide 16% PASTE (Butt Paste) 30 gm TUBE TOPICAL SCH ×3 (08:37→22:12)
[2020-01-06] MEDS: methylPREDNISolone SOD 40 mg/ml 1 ml VIAL IV SCH (08:37)
[2020-01-06] MEDS ORDERED: Sodium Chloride(INHALANT) 3% 4 ML NEB.SOLN INH SCH (09:00)
[2020-01-06] MEDS: Sodium Chloride(INHALANT) 3% 4 ML NEB.SOLN INH SCH ×4 (11:01→22:25)
[2020-01-06] MEDS: Anidulafungin 100 MG in NS 0.9% 100 ML IVPB SCH (12:47)
[2020-01-06] MEDS: Morphine 2 MG/ML SYRINGE IV PRN ×2 (14:38→22:53)
[2020-01-06] MEDS: Enoxaparin 40 MG/0.4 ML SYR SUBCUT SCH (14:39)
[2020-01-07] MEDS: Vancomycin 750 MG in NS 0.9% 250 ML IVPB SCH ×4 (01:26→17:37)
[2020-01-07] MEDS: Sodium Chloride(INHALANT) 3% 4 ML NEB.SOLN INH SCH ×6 (03:13→22:09)
[2020-01-07] MEDS: Meropenem 500MG PREMIX(*) 500 MG/50 ML BAG IV SCH ×3 (03:32→20:04)
[2020-01-07] MEDS: Albuterol/Ipratropium NEB.SOL (2.5/0.5 MG) 3 ML NEB.SOLN INH SCH ×5 (03:33→19:32)
[2020-01-07 04:35] LABS: ABS Eosinophils 0.1 10^3/ul (0-0.6); ABS Lymphocytes 1.1 10^3/ul (1.0-4.8); ABS Monocytes 0.7 10^3/ul (0-0.8); ABS Neutrophils 7.5 10^3/ul (1.5-7.7); Eosinophil % 0.9 %; Hematocrit 29 % (35-47); Hemoglobin 9.6 g/dL (12.0-16.0); Mean Corpuscular HGB Conc 33 g/dL (31-36); Mean Corpuscular Hemoglobin 33 pg (27-31); Mean Corpuscular Volume 100 fL (80-97); Mean Platelet Volume 7.7 fL (7.4-10.4); Platelet Count 308 10^3/uL (150-450); Red Blood Count 2.91 10^6 /uL (3.70-4.87); Red Cell Distribution Width 23 % (10-15); White Blood Count 9.4 10^3/uL (3.5-10.8)
[2020-01-07 04:47] LABS: Anion Gap 4 mmol/L (2-11); Blood Urea Nitrogen 7 mg/dL (6-24); CO2 Carbon Dioxide 26 mmol/L (22-32); Calcium 7.7 mg/dL (8.6-10.3); Chloride 102 mmol/L (101-111); EGFR African American 284.9 (>60); EGFR Non-African American 235.5 (>60); Glucose 87 mg/dL (70-100); Magnesium 1.8 mg/dL (1.9-2.7); Phosphorus 2.9 mg/dL (2.5-5.0); Potassium 3.6 mmol/L (3.5-5.0); Sodium 132 mmol/L (135-145)
[2020-01-07] MEDS ORDERED: Magnesium Sulfate IV 3 GM in NS 0.9% 100 ml BAG 100 ML IVPB ONE (07:25)
[2020-01-07] MEDS: Pancrelipase 5,000 units CAP PO SCH ×3 (08:06→17:34)
[2020-01-07] MEDS: Pantoprazole VIAL 40 MG VIAL IV SCH (08:06)
[2020-01-07] MEDS: Collagenase 250 units/gm OINT 1 tube TOPICAL SCH ×2 (08:07→21:53)
[2020-01-07] MEDS: Zinc Oxide 16% PASTE (Butt Paste) 30 gm TUBE TOPICAL SCH ×3 (08:07→21:53)
[2020-01-07] MEDS ORDERED: Vancomycin Trough Check NOTE FOLLOW UP ONE (08:30)
[2020-01-07] MEDS: Morphine 2 MG/ML SYRINGE IV PRN (12:07)
[2020-01-07] MEDS ORDERED: Morphine 2 MG/ML SYRINGE IV ONE (14:32)
[2020-01-07] MEDS: Enoxaparin 40 MG/0.4 ML SYR SUBCUT SCH (14:42)
[2020-01-08] MEDS: Albuterol/Ipratropium NEB.SOL (2.5/0.5 MG) 3 ML NEB.SOLN INH SCH ×7 (00:15→23:02)
[2020-01-08] MEDS: Vancomycin 750 MG in NS 0.9% 250 ML IVPB SCH ×3 (01:05→16:40)
[2020-01-08] MEDS: Sodium Chloride(INHALANT) 3% 4 ML NEB.SOLN INH SCH ×4 (02:41→13:34)
[2020-01-08] MEDS: Meropenem 500MG PREMIX(*) 500 MG/50 ML BAG IV SCH ×3 (04:05→19:46)
[2020-01-08 06:06] LABS: Anion Gap 1 mmol/L (2-11); Blood Urea Nitrogen 6 mg/dL (6-24); CO2 Carbon Dioxide 31 mmol/L (22-32); Calcium 7.4 mg/dL (8.6-10.3); Chloride 103 mmol/L (101-111); EGFR African American 284.9 (>60); EGFR Non-African American 235.5 (>60); Glucose 83 mg/dL (70-100); Magnesium 1.8 mg/dL (1.9-2.7); Phosphorus 3.1 mg/dL (2.5-5.0); Potassium 3.2 mmol/L (3.5-5.0); Sodium 135 mmol/L (135-145)
[2020-01-08] MEDS: Potassium Chlor 20 meq TAB.ER PO ONE ×2 (09:05→09:34)
[2020-01-08] MEDS: Zinc Oxide 16% PASTE (Butt Paste) 30 gm TUBE TOPICAL SCH ×3 (09:05→22:47)
[2020-01-08] MEDS: Collagenase 250 units/gm OINT 1 tube TOPICAL SCH ×2 (09:05→21:27)
[2020-01-08] MEDS: Pancrelipase 5,000 units CAP PO SCH ×4 (09:06→16:51)
[2020-01-08] MEDS: Pantoprazole VIAL 40 MG VIAL IV SCH (09:06)
[2020-01-08 09:47] LABS: ABS Eosinophils 0.1 10^3/ul (0-0.6); ABS Lymphocytes 0.9 10^3/ul (1.0-4.8); ABS Monocytes 0.6 10^3/ul (0-0.8); ABS Neutrophils 5.7 10^3/ul (1.5-7.7); Eosinophil % 1.7 %; Hematocrit 29 % (35-47); Hemoglobin 9.4 g/dL (12.0-16.0); Lymphocyte % 12.7 %; Mean Corpuscular HGB Conc 33 g/dL (31-36); Mean Corpuscular Hemoglobin 33 pg (27-31); Mean Corpuscular Volume 101 fL (80-97); Mean Platelet Volume 8.4 fL (7.4-10.4); Platelet Count 267 10^3/uL (150-450); Red Blood Count 2.86 10^6 /uL (3.70-4.87); Red Cell Distribution Width 23 % (10-15); White Blood Count 7.4 10^3/uL (3.5-10.8)
[2020-01-08] MEDS ORDERED: Etomidate 40 mg/20 ml (2 MG/ML) 20 ml VIAL (40 mg) ONE (09:59)
[2020-01-08] MEDS ORDERED: fentaNYL 250 mcg/5 ml 50 MCG/ML 5 ml VIAL (250 MCG) ONE (09:59)
[2020-01-08] MEDS ORDERED: Midazolam 10 mg/10 ml VIAL 1 mg/ml 10 ml VIAL (10 mg) ONE (09:59)
[2020-01-08] MEDS ORDERED: Acetylcysteine ORAL SOL 200 mg/ml 30 ml VIAL ONE (10:18)
[2020-01-08] MEDS: Midazolam 50 MG VIAL IV DRIP 50 ML IV SCH ×2 (10:20→22:08)
[2020-01-08] MEDS ORDERED: Hydrocortisone INJ 100 MG/2ML 2 ML VIAL ONE (10:27)
[2020-01-08] MEDS: KCL 20 MEQ/100 ML IVPREMIX 20 MEQ/100 ML BAG IV SCH ×2 (11:54→14:10)
[2020-01-08] MEDS ORDERED: Acetylcysteine INH SOL (RT) 200 MG/ML 4 ML VIAL INH ONE (13:51)
[2020-01-08] MEDS: Enoxaparin 40 MG/0.4 ML SYR SUBCUT SCH (14:09)
[2020-01-08] MEDS: Chlorhexidine MOUTHWASH 0.12% 15 ML UDC TOPICAL SCH ×3 (15:31→22:46)
[2020-01-08] MEDS ORDERED: Furosemide 20 mg/2 ml IV VIAL IV ONE (16:37)
[2020-01-09] MEDS: Vancomycin 750 MG in NS 0.9% 250 ML IVPB SCH ×3 (00:23→17:29)
[2020-01-09] MEDS: Chlorhexidine MOUTHWASH 0.12% 15 ML UDC TOPICAL SCH ×4 (03:14→10:02)
[2020-01-09] MEDS: Meropenem 500MG PREMIX(*) 500 MG/50 ML BAG IV SCH ×3 (03:26→19:50)
[2020-01-09] MEDS: Albuterol/Ipratropium NEB.SOL (2.5/0.5 MG) 3 ML NEB.SOLN INH SCH ×4 (04:05→16:09)
[2020-01-09 04:29] LABS: ABS Eosinophils 0.1 10^3/ul (0-0.6); ABS Monocytes 0.6 10^3/ul (0-0.8); Eosinophil % 1.3 %; Hematocrit 31 % (35-47); Hemoglobin 10.2 g/dL (12.0-16.0); Lymphocyte % 11.5 %; Mean Corpuscular HGB Conc 33 g/dL (31-36); Mean Corpuscular Hemoglobin 33 pg (27-31); Mean Corpuscular Volume 99 fL (80-97); Mean Platelet Volume 8.2 fL (7.4-10.4); Platelet Count 252 10^3/uL (150-450); Red Blood Count 3.12 10^6 /uL (3.70-4.87); Red Cell Distribution Width 22 % (10-15); White Blood Count 8.8 10^3/uL (3.5-10.8)
[2020-01-09 04:44] LABS: ALT 29 U/L (7-52); AST 16 U/L (13-39); Albumin 2.4 g/dL (3.2-5.2); Albumin/Globulin Ratio 1.2 (1-3); Alkaline Phosphatase 79 U/L (34-104); Anion Gap 6 mmol/L (2-11); Blood Urea Nitrogen 7 mg/dL (6-24); CO2 Carbon Dioxide 28 mmol/L (22-32); Calcium 8.1 mg/dL (8.6-10.3); Chloride 102 mmol/L (101-111); EGFR African American 284.9 (>60); EGFR Non-African American 235.5 (>60); Glucose 65 mg/dL (70-100); Magnesium 1.6 mg/dL (1.9-2.7); Phosphorus 3.2 mg/dL (2.5-5.0); Potassium 3.2 mmol/L (3.5-5.0); Sodium 136 mmol/L (135-145); Total Protein 4.4 g/dL (6.4-8.9)
[2020-01-09] MEDS: Midazolam 50 MG VIAL IV DRIP 50 ML IV SCH (05:25)
[2020-01-09] MEDS ORDERED: Magnesium Sulfate 2 gm BAG 2 GM/50 ML BAG IVPB ONE ×2 (05:40→20:01)
[2020-01-09] MEDS: KCL 10 MEQ/50 ML IVPREMIX 10 MEQ/50 ML BAG IV SCH ×3 (05:50→11:08)
[2020-01-09] MEDS ORDERED: Vancomycin Trough Check NOTE FOLLOW UP ONE (08:30)
[2020-01-09] MEDS: Pancrelipase 5,000 units CAP PO SCH ×3 (08:36→18:26)
[2020-01-09] MEDS ORDERED: Dextrose 50% Syringe 50 ml 25 GM/50 ML SYRINGE IV PUSH PRN (08:53)
[2020-01-09] MEDS: Pantoprazole VIAL 40 MG VIAL IV SCH (08:54)
[2020-01-09] MEDS: Zinc Oxide 16% PASTE (Butt Paste) 30 gm TUBE TOPICAL SCH ×3 (08:57→19:50)
[2020-01-09] MEDS: Collagenase 250 units/gm OINT 1 tube TOPICAL SCH ×2 (08:57→19:50)
[2020-01-09] MEDS ORDERED: KCL 10 MEQ/50 ML IVPREMIX 10 MEQ/50 ML BAG ONE (11:07)
[2020-01-09] MEDS: Enoxaparin 40 MG/0.4 ML SYR SUBCUT SCH (13:27)
[2020-01-09] MEDS ORDERED: Furosemide 20 mg/2 ml IV VIAL IV ONE (17:40)
[2020-01-09] MEDS: KCL 20 MEQ/100 ML IVPREMIX 20 MEQ/100 ML BAG IV SCH (21:23)
[2020-01-10] MEDS: KCL 20 MEQ/100 ML IVPREMIX 20 MEQ/100 ML BAG IV SCH (00:05)
[2020-01-10] MEDS: Vancomycin 750 MG in NS 0.9% 250 ML IVPB SCH ×3 (01:05→17:51)
[2020-01-10 03:10] LABS: ABS Basophils 0.1 10^3/ul (0-0.2); ABS Eosinophils 0.1 10^3/ul (0-0.6); ABS Lymphocytes 1.2 10^3/ul (1.0-4.8); ABS Monocytes 0.7 10^3/ul (0-0.8); Eosinophil % 1.1 %; Hematocrit 27 % (35-47); Hemoglobin 8.8 g/dL (12.0-16.0); Lymphocyte % 14.6 %; Mean Corpuscular HGB Conc 33 g/dL (31-36); Mean Corpuscular Hemoglobin 33 pg (27-31); Mean Corpuscular Volume 99 fL (80-97); Mean Platelet Volume 8.1 fL (7.4-10.4); Platelet Count 233 10^3/uL (150-450); Red Cell Distribution Width 22 % (10-15)
[2020-01-10 03:25] LABS: ALT 25 U/L (7-52); AST 15 U/L (13-39); Albumin 2.4 g/dL (3.2-5.2); Albumin/Globulin Ratio 1.1 (1-3); Alkaline Phosphatase 84 U/L (34-104); Anion Gap 1 mmol/L (2-11); Blood Urea Nitrogen 7 mg/dL (6-24); C Reactive Protein 21.81 mg/L (<8.01); CO2 Carbon Dioxide 30 mmol/L (22-32); Calcium 7.7 mg/dL (8.6-10.3); Chloride 102 mmol/L (101-111); EGFR African American 284.9 (>60); EGFR Non-African American 235.5 (>60); Globulin 2.1 g/dL (2-4); Glucose 89 mg/dL (70-100); Magnesium 2.3 mg/dL (1.9-2.7); Phosphorus 2.5 mg/dL (2.5-5.0); Potassium 4.1 mmol/L (3.5-5.0); Sodium 133 mmol/L (135-145); Total Protein 4.5 g/dL (6.4-8.9)
[2020-01-10] MEDS: Meropenem 500MG PREMIX(*) 500 MG/50 ML BAG IV SCH ×3 (03:57→20:25)
[2020-01-10] MEDS: Pancrelipase 5,000 units CAP PO SCH ×3 (08:05→16:48)
[2020-01-10] MEDS: Zinc Oxide 16% PASTE (Butt Paste) 30 gm TUBE TOPICAL SCH ×3 (08:06→20:25)
[2020-01-10] MEDS: Pantoprazole VIAL 40 MG VIAL IV SCH (08:06)
[2020-01-10] MEDS: Collagenase 250 units/gm OINT 1 tube TOPICAL SCH ×2 (08:06→20:25)
[2020-01-10] MEDS: Enoxaparin 40 MG/0.4 ML SYR SUBCUT SCH (14:50)
[2020-01-11] MEDS: Vancomycin 750 MG in NS 0.9% 250 ML IVPB SCH ×2 (00:43→08:02)
[2020-01-11] MEDS: Meropenem 500MG PREMIX(*) 500 MG/50 ML BAG IV SCH (03:46)
[2020-01-11 06:00] LABS: Anion Gap 3 mmol/L (2-11); Blood Urea Nitrogen 9 mg/dL (6-24); CO2 Carbon Dioxide 29 mmol/L (22-32); Calcium 7.8 mg/dL (8.6-10.3); Chloride 104 mmol/L (101-111); EGFR African American 284.9 (>60); EGFR Non-African American 235.5 (>60); Glucose 85 mg/dL (70-100); Magnesium 1.6 mg/dL (1.9-2.7); Sodium 136 mmol/L (135-145)
[2020-01-11] MEDS ORDERED: Magnesium Sulfate 2 gm BAG 2 GM/50 ML BAG IVPB ONE ×2 (06:48→09:22)
[2020-01-11] MEDS: Pancrelipase 5,000 units CAP PO SCH ×3 (07:37→16:16)
[2020-01-11] MEDS: Pantoprazole VIAL 40 MG VIAL IV SCH (08:02)
[2020-01-11] MEDS: Zinc Oxide 16% PASTE (Butt Paste) 30 gm TUBE TOPICAL SCH ×3 (10:45→19:58)
[2020-01-11] MEDS: Collagenase 250 units/gm OINT 1 tube TOPICAL SCH ×2 (10:45→19:59)
[2020-01-11] MEDS: cefTRIAXone 1 gm/50 mL NS BAG 1 GM/50 ML BAG IVPB SCH ×2 (12:08→23:48)
[2020-01-11] MEDS: Enoxaparin 40 MG/0.4 ML SYR SUBCUT SCH (14:10)
[2020-01-12 04:02] LABS: ABS Basophils 0.1 10^3/ul (0-0.2); ABS Eosinophils 0.1 10^3/ul (0-0.6); ABS Lymphocytes 1.4 10^3/ul (1.0-4.8); ABS Monocytes 0.5 10^3/ul (0-0.8); ABS Neutrophils 5.7 10^3/ul (1.5-7.7); Eosinophil % 1.4 %; Hematocrit 28 % (35-47); Mean Corpuscular HGB Conc 33 g/dL (31-36); Mean Corpuscular Hemoglobin 33 pg (27-31); Mean Corpuscular Volume 99 fL (80-97); Mean Platelet Volume 7.9 fL (7.4-10.4); Platelet Count 209 10^3/uL (150-450); Red Blood Count 2.77 10^6 /uL (3.70-4.87); Red Cell Distribution Width 21 % (10-15); White Blood Count 7.8 10^3/uL (3.5-10.8)
[2020-01-12 04:19] LABS: Anion Gap 4 mmol/L (2-11); Blood Urea Nitrogen 11 mg/dL (6-24); CO2 Carbon Dioxide 29 mmol/L (22-32); Calcium 8.2 mg/dL (8.6-10.3); Chloride 102 mmol/L (101-111); EGFR African American 284.9 (>60); EGFR Non-African American 235.5 (>60); Glucose 87 mg/dL (70-100); Magnesium 1.8 mg/dL (1.9-2.7); Potassium 4.1 mmol/L (3.5-5.0); Sodium 135 mmol/L (135-145)
[2020-01-12] MEDS ORDERED: Magnesium Sulfate 2 gm BAG 2 GM/50 ML BAG IVPB ONE (04:49)
[2020-01-12] MEDS ORDERED: Vancomycin Trough Check NOTE FOLLOW UP ONE (08:30)
[2020-01-12] MEDS: Zinc Oxide 16% PASTE (Butt Paste) 30 gm TUBE TOPICAL SCH ×3 (08:55→21:00)
[2020-01-12] MEDS: Collagenase 250 units/gm OINT 1 tube TOPICAL SCH ×2 (08:55→21:00)
[2020-01-12] MEDS: Pantoprazole VIAL 40 MG VIAL IV SCH (08:55)
[2020-01-12] MEDS: Pancrelipase 5,000 units CAP PO SCH ×3 (08:55→17:58)
[2020-01-12] MEDS: Enoxaparin 40 MG/0.4 ML SYR SUBCUT SCH (13:22)
[2020-01-12] MEDS: cefTRIAXone 1 gm/50 mL NS BAG 1 GM/50 ML BAG IVPB SCH (13:23)
[2020-01-13] MEDS: Pancrelipase 5,000 units CAP PO SCH ×3 (08:54→15:54)
[2020-01-13] MEDS: Pantoprazole VIAL 40 MG VIAL IV SCH (09:11)
[2020-01-13] MEDS: Zinc Oxide 16% PASTE (Butt Paste) 30 gm TUBE TOPICAL SCH ×3 (12:31→23:18)
[2020-01-13] MEDS: Collagenase 250 units/gm OINT 1 tube TOPICAL SCH ×2 (12:31→23:18)
[2020-01-13] MEDS: Enoxaparin 40 MG/0.4 ML SYR SUBCUT SCH (15:50)
[2020-01-13] MEDS: Linezolid 600 MG IVPREMIX(*) 600 MG/300 ML BAG IVPB SCH (17:26)
[2020-01-14] MEDS: Linezolid 600 MG IVPREMIX(*) 600 MG/300 ML BAG IVPB SCH ×2 (05:54→16:12)
[2020-01-14 06:02] LABS: Hematocrit 28 % (35-47); Hemoglobin 9.3 g/dL (12.0-16.0); Mean Corpuscular HGB Conc 33 g/dL (31-36); Mean Corpuscular Hemoglobin 33 pg (27-31); Mean Corpuscular Volume 98 fL (80-97); Mean Platelet Volume 7.9 fL (7.4-10.4); Platelet Count 213 10^3/uL (150-450); Red Blood Count 2.85 10^6 /uL (3.70-4.87); Red Cell Distribution Width 20 % (10-15); White Blood Count 7.7 10^3/uL (3.5-10.8)
[2020-01-14 06:19] LABS: Anion Gap 4 mmol/L (2-11); Blood Urea Nitrogen 13 mg/dL (6-24); CO2 Carbon Dioxide 31 mmol/L (22-32); Calcium 8.5 mg/dL (8.6-10.3); Chloride 99 mmol/L (101-111); EGFR African American 284.9 (>60); EGFR Non-African American 235.5 (>60); Glucose 79 mg/dL (70-100); Magnesium 1.5 mg/dL (1.9-2.7); Sodium 134 mmol/L (135-145)
[2020-01-14 07:05] LABS: ABS Eosinophils 0.1 10^3/ul (0-0.6); ABS Lymphocytes 1.4 10^3/ul (1.0-4.8); ABS Monocytes 0.5 10^3/ul (0-0.8); ABS Neutrophils 5.8 10^3/ul (1.5-7.7); Lymphocyte % 17.9 %
[2020-01-14] MEDS: Zinc Oxide 16% PASTE (Butt Paste) 30 gm TUBE TOPICAL SCH ×3 (07:59→20:05)
[2020-01-14] MEDS: Pancrelipase 5,000 units CAP PO SCH ×3 (07:59→16:12)
[2020-01-14] MEDS: Collagenase 250 units/gm OINT 1 tube TOPICAL SCH ×3 (07:59→20:05)
[2020-01-14] MEDS: Pantoprazole VIAL 40 MG VIAL IV SCH (07:59)
[2020-01-14] MEDS ORDERED: Magnesium Sulfate IV 3 GM in NS 0.9% 100 ml BAG 100 ML IVPB ONE (09:00)
[2020-01-14] MEDS: Enoxaparin 40 MG/0.4 ML SYR SUBCUT SCH (12:57)
[2020-01-14] MEDS: Morphine ER 15 mg TAB ** extended release PO SCH (14:16)
[2020-01-15] MEDS: Morphine ER 15 mg TAB ** extended release PO SCH ×2 (01:59→14:35)
[2020-01-15] MEDS: Linezolid 600 MG IVPREMIX(*) 600 MG/300 ML BAG IVPB SCH ×2 (04:13→16:34)
[2020-01-15] MEDS: Pancrelipase 5,000 units CAP PO SCH ×3 (07:23→16:33)
[2020-01-15] MEDS: Pantoprazole VIAL 40 MG VIAL IV SCH (09:36)
[2020-01-15] MEDS: Zinc Oxide 16% PASTE (Butt Paste) 30 gm TUBE TOPICAL SCH ×3 (09:55→20:15)
[2020-01-15] MEDS: Collagenase 250 units/gm OINT 1 tube TOPICAL SCH ×2 (09:57→20:15)
[2020-01-15] MEDS: Enoxaparin 40 MG/0.4 ML SYR SUBCUT SCH (14:38)
[2020-01-16] MEDS: Morphine ER 15 mg TAB ** extended release PO SCH ×2 (02:37→14:31)
[2020-01-16] MEDS: Linezolid 600 MG IVPREMIX(*) 600 MG/300 ML BAG IVPB SCH ×2 (04:17→17:49)
[2020-01-16 05:50] LABS: ABS Eosinophils 0.1 10^3/ul (0-0.6); ABS Lymphocytes 1.2 10^3/ul (1.0-4.8); ABS Monocytes 0.4 10^3/ul (0-0.8); ABS Neutrophils 5.1 10^3/ul (1.5-7.7); Eosinophil % 1.6 %; Hematocrit 30 % (35-47); Hemoglobin 9.9 g/dL (12.0-16.0); Mean Corpuscular HGB Conc 34 g/dL (31-36); Mean Corpuscular Hemoglobin 33 pg (27-31); Mean Corpuscular Volume 97 fL (80-97); Mean Platelet Volume 7.8 fL (7.4-10.4); Platelet Count 230 10^3/uL (150-450); Red Blood Count 3.05 10^6 /uL (3.70-4.87); Red Cell Distribution Width 20 % (10-15); White Blood Count 6.9 10^3/uL (3.5-10.8)
[2020-01-16 06:01] LABS: Anion Gap 5 mmol/L (2-11); Blood Urea Nitrogen 9 mg/dL (6-24); CO2 Carbon Dioxide 31 mmol/L (22-32); Calcium 8.9 mg/dL (8.6-10.3); Chloride 99 mmol/L (101-111); EGFR African American 284.9 (>60); EGFR Non-African American 235.5 (>60); Glucose 83 mg/dL (70-100); Magnesium 1.6 mg/dL (1.9-2.7); Potassium 4.2 mmol/L (3.5-5.0); Sodium 135 mmol/L (135-145)
[2020-01-16] MEDS: Pancrelipase 5,000 units CAP PO SCH ×3 (08:28→17:49)
[2020-01-16] MEDS: Pantoprazole VIAL 40 MG VIAL IV SCH (08:29)
[2020-01-16] MEDS ORDERED: Magnesium Sulfate IV 3 GM in NS 0.9% 100 ml BAG 100 ML IVPB ONE (09:00)
[2020-01-16] MEDS: Collagenase 250 units/gm OINT 1 tube TOPICAL SCH ×2 (12:34→21:48)
[2020-01-16] MEDS: Zinc Oxide 16% PASTE (Butt Paste) 30 gm TUBE TOPICAL SCH ×3 (12:34→21:48)
[2020-01-16] MEDS: Enoxaparin 40 MG/0.4 ML SYR SUBCUT SCH (14:32)
[2020-01-17] MEDS: Morphine ER 15 mg TAB ** extended release PO SCH ×2 (02:23→14:05)
[2020-01-17] MEDS: Linezolid 600 MG IVPREMIX(*) 600 MG/300 ML BAG IVPB SCH ×2 (05:01→16:25)
[2020-01-17] MEDS: Pancrelipase 5,000 units CAP PO SCH ×3 (08:17→16:23)
[2020-01-17] MEDS: Pantoprazole VIAL 40 MG VIAL IV SCH (08:19)
[2020-01-17 09:03] LABS: Anion Gap 4 mmol/L (2-11); Blood Urea Nitrogen 10 mg/dL (6-24); CO2 Carbon Dioxide 31 mmol/L (22-32); Chloride 98 mmol/L (101-111); EGFR African American 284.9 (>60); EGFR Non-African American 235.5 (>60); Glucose 61 mg/dL (70-100); Magnesium 1.7 mg/dL (1.9-2.7); Potassium 4.6 mmol/L (3.5-5.0); Sodium 133 mmol/L (135-145)
[2020-01-17] MEDS ORDERED: Magnesium Sulfate IV 3 GM in NS 0.9% 100 ml BAG 100 ML IVPB ONE (09:18)
[2020-01-17] MEDS: Zinc Oxide 16% PASTE (Butt Paste) 30 gm TUBE TOPICAL SCH ×3 (09:43→21:17)
[2020-01-17] MEDS: Collagenase 250 units/gm OINT 1 tube TOPICAL SCH ×2 (09:43→21:17)
[2020-01-17] MEDS: Enoxaparin 40 MG/0.4 ML SYR SUBCUT SCH (14:06)
[2020-01-18] MEDS: Morphine ER 15 mg TAB ** extended release PO SCH ×2 (02:35→14:55)
[2020-01-18] MEDS: Linezolid 600 MG IVPREMIX(*) 600 MG/300 ML BAG IVPB SCH ×2 (04:49→17:19)
[2020-01-18 05:20] LABS: BUN/Creatinine Ratio 33.3 (8-20); EGFR African American 283.8 (>60); EGFR Non-African American 234.5 (>60); Magnesium 1.7 mg/dL (1.9-2.7); Potassium 4.3 mmol/L (3.5-5.0)
[2020-01-18] MEDS: Pancrelipase 5,000 units CAP PO SCH ×3 (08:18→17:19)
[2020-01-18] MEDS: Collagenase 250 units/gm OINT 1 tube TOPICAL SCH ×2 (08:20→23:37)
[2020-01-18] MEDS: Pantoprazole VIAL 40 MG VIAL IV SCH (08:21)
[2020-01-18] MEDS: Zinc Oxide 16% PASTE (Butt Paste) 30 gm TUBE TOPICAL SCH ×3 (08:21→23:37)
[2020-01-18] MEDS: Enoxaparin 40 MG/0.4 ML SYR SUBCUT SCH (14:56)
[2020-01-18] MEDS ORDERED: Magnesium Sulfate 2 gm BAG 2 GM/50 ML BAG IVPB ONE (17:06)
[2020-01-19] MEDS: Morphine ER 15 mg TAB ** extended release PO SCH ×2 (02:19→14:42)
[2020-01-19] MEDS: Linezolid 600 MG IVPREMIX(*) 600 MG/300 ML BAG IVPB SCH (05:13)
[2020-01-19] MEDS: Zinc Oxide 16% PASTE (Butt Paste) 30 gm TUBE TOPICAL SCH ×3 (08:21→20:02)
[2020-01-19] MEDS: Pancrelipase 5,000 units CAP PO SCH ×3 (08:21→16:23)
[2020-01-19] MEDS: Collagenase 250 units/gm OINT 1 tube TOPICAL SCH ×2 (08:21→19:59)
[2020-01-19 08:37] LABS: Hematocrit 29 % (35-47); Hemoglobin 9.8 g/dL (12.0-16.0); Mean Corpuscular HGB Conc 34 g/dL (31-36); Mean Corpuscular Hemoglobin 33 pg (27-31); Mean Corpuscular Volume 98 fL (80-97); Mean Platelet Volume 7.3 fL (7.4-10.4); Platelet Count 220 10^3/uL (150-450); Red Blood Count 2.96 10^6 /uL (3.70-4.87); Red Cell Distribution Width 19 % (10-15)
[2020-01-19] MEDS ORDERED: HYDROmorphone 1 MG/1 ML SYRINGE IV SLOW PU PRN (12:47)
[2020-01-19 14:04] LABS: Hematocrit 28 % (35-47); Hemoglobin 9.4 g/dL (12.0-16.0); Mean Corpuscular HGB Conc 33 g/dL (31-36); Mean Corpuscular Hemoglobin 32 pg (27-31); Mean Corpuscular Volume 97 fL (80-97); Mean Platelet Volume 7.2 fL (7.4-10.4); Platelet Count 216 10^3/uL (150-450); Red Cell Distribution Width 19 % (10-15); White Blood Count 5.5 10^3/uL (3.5-10.8)
[2020-01-19 14:20] LABS: Albumin 3.1 g/dL (3.2-5.2); Albumin/Globulin Ratio 1.2 (1-3); BUN/Creatinine Ratio 37.5 (8-20); Calcium 8.6 mg/dL (8.6-10.3); EGFR African American 263.4 (>60); EGFR Non-African American 217.7 (>60); Globulin 2.5 g/dL (2-4); Total Bilirubin 0.3 mg/dL (0.2-1.0); Total Protein 5.6 g/dL (6.4-8.9)
[2020-01-19] MEDS: ceFAZolin 2 GM PREMIX 2 GM/50 ML BAG IVPB SCH (15:05)
[2020-01-19] MEDS: Lactated Ringers 1000 ml BAG 1,000 ML IV SCH (15:05)
[2020-01-20] MEDS: ceFAZolin 2 GM PREMIX 2 GM/50 ML BAG IVPB SCH ×3 (00:11→16:19)
[2020-01-20] MEDS: Morphine ER 15 mg TAB ** extended release PO SCH ×2 (02:28→14:11)
[2020-01-20] MEDS: Lactated Ringers 1000 ml BAG 1,000 ML IV SCH (05:44)
[2020-01-20] MEDS: Pancrelipase 5,000 units CAP PO SCH ×3 (09:38→17:22)
[2020-01-20] MEDS: Collagenase 250 units/gm OINT 1 tube TOPICAL SCH ×2 (09:44→21:56)
[2020-01-20] MEDS: Zinc Oxide 16% PASTE (Butt Paste) 30 gm TUBE TOPICAL SCH ×3 (09:45→21:56)
[2020-01-20] MEDS: HYDROmorphone 1 MG/1 ML SYRINGE IV SLOW PU PRN ×2 (09:46→17:23)
[2020-01-20 10:36] LABS: Hematocrit 28 % (35-47); Hemoglobin 9.2 g/dL (12.0-16.0); Mean Corpuscular HGB Conc 33 g/dL (31-36); Mean Corpuscular Hemoglobin 33 pg (27-31); Mean Corpuscular Volume 99 fL (80-97); Mean Platelet Volume 7.1 fL (7.4-10.4); Platelet Count 199 10^3/uL (150-450); Red Blood Count 2.84 10^6 /uL (3.70-4.87); Red Cell Distribution Width 19 % (10-15)
[2020-01-20 10:52] LABS: BUN/Creatinine Ratio 19.4 (8-20); Calcium 8.6 mg/dL (8.6-10.3); EGFR African American 229.9 (>60); Magnesium 1.3 mg/dL (1.9-2.7); Potassium 3.9 mmol/L (3.5-5.0)
[2020-01-20] MEDS ORDERED: Magnesium Sulfate 2 gm BAG 2 GM/50 ML BAG IVPB ONE (11:43)
[2020-01-21] MEDS: ceFAZolin 2 GM PREMIX 2 GM/50 ML BAG IVPB SCH ×4 (00:09→23:39)
[2020-01-21] MEDS: HYDROmorphone 1 MG/1 ML SYRINGE IV SLOW PU PRN ×3 (00:39→16:22)
[2020-01-21] MEDS: Morphine ER 15 mg TAB ** extended release PO SCH ×3 (02:31→20:49)
[2020-01-21 07:04] LABS: EGFR African American 283.8 (>60); EGFR Non-African American 234.5 (>60); Magnesium 1.7 mg/dL (1.9-2.7); Potassium 3.9 mmol/L (3.5-5.0)
[2020-01-21] MEDS: Pancrelipase 5,000 units CAP PO SCH ×3 (08:59→16:21)
[2020-01-21] MEDS: Zinc Oxide 16% PASTE (Butt Paste) 30 gm TUBE TOPICAL SCH ×3 (09:00→20:51)
[2020-01-21] MEDS: Collagenase 250 units/gm OINT 1 tube TOPICAL SCH ×2 (09:00→20:50)
[2020-01-21] MEDS ORDERED: Magnesium Sulfate 2 gm BAG 2 GM/50 ML BAG IVPB ONE (10:00)
[2020-01-22] MEDS: HYDROmorphone 1 MG/1 ML SYRINGE IV SLOW PU PRN ×4 (00:17→19:51)
[2020-01-22 05:14] LABS: ABS Basophils 0.1 10^3/ul (0-0.2); ABS Eosinophils 0.4 10^3/ul (0-0.6); ABS Lymphocytes 1.1 10^3/ul (1.0-4.8); ABS Monocytes 0.5 10^3/ul (0-0.8); ABS Neutrophils 2.9 10^3/ul (1.5-7.7); Eosinophil % 8.1 %; Hematocrit 28 % (35-47); Hemoglobin 9.3 g/dL (12.0-16.0); Lymphocyte % 22.5 %; Mean Corpuscular HGB Conc 34 g/dL (31-36); Mean Corpuscular Hemoglobin 33 pg (27-31); Mean Corpuscular Volume 97 fL (80-97); Mean Platelet Volume 6.9 fL (7.4-10.4); Platelet Count 220 10^3/uL (150-450); Red Blood Count 2.84 10^6 /uL (3.70-4.87); Red Cell Distribution Width 18 % (10-15)
[2020-01-22 05:35] LABS: BUN/Creatinine Ratio 25.8 (8-20); Calcium 9.1 mg/dL (8.6-10.3); EGFR African American 273.3 (>60); EGFR Non-African American 225.8 (>60); Magnesium 1.7 mg/dL (1.9-2.7); Potassium 4.2 mmol/L (3.5-5.0)
[2020-01-22] MEDS: Pancrelipase 5,000 units CAP PO SCH ×3 (08:14→16:19)
[2020-01-22] MEDS: Morphine ER 15 mg TAB ** extended release PO SCH ×2 (08:14→19:52)
[2020-01-22] MEDS: ceFAZolin 2 GM PREMIX 2 GM/50 ML BAG IVPB SCH ×3 (08:15→23:38)
[2020-01-22] MEDS: Zinc Oxide 16% PASTE (Butt Paste) 30 gm TUBE TOPICAL SCH ×3 (08:17→19:53)
[2020-01-22] MEDS: Collagenase 250 units/gm OINT 1 tube TOPICAL SCH ×2 (08:17→19:53)
[2020-01-22] MEDS ORDERED: Magnesium Sulfate 2 gm BAG 2 GM/50 ML BAG IVPB ONE (08:17)
[2020-01-22 14:15] LABS: Albumin 3.1 g/dL (3.2-5.2); Albumin/Globulin Ratio 1.4 (1-3); C Reactive Protein 8.17 mg/L (<8.01); Globulin 2.2 g/dL (2-4); Indirect Bilirubin 0.1 mg/dL (0.3-1.0); Total Bilirubin 0.2 mg/dL (0.2-1.0); Total Protein 5.3 g/dL (6.4-8.9)
[2020-01-23] MEDS: HYDROmorphone 1 MG/1 ML SYRINGE IV SLOW PU PRN ×3 (01:45→10:23)
[2020-01-23] MEDS: Pancrelipase 5,000 units CAP PO SCH ×2 (09:09→12:25)
[2020-01-23] MEDS: Morphine ER 15 mg TAB ** extended release PO SCH (09:10)
[2020-01-23] MEDS: ceFAZolin 2 GM PREMIX 2 GM/50 ML BAG IVPB SCH (09:10)
[2020-01-23] MEDS: Collagenase 250 units/gm OINT 1 tube TOPICAL SCH (09:18)
[2020-01-23] MEDS: Zinc Oxide 16% PASTE (Butt Paste) 30 gm TUBE TOPICAL SCH (11:09)
[2020-01-23 12:16] VITALS: BP 96/60
== END 2020-01-23 13:43 | DRG 870 ==
LOC: ED 22:22 → SSU 12-20 02:40 → MED 12-22 22:04 → ICU 12-27 06:02 → MEDTELE 01-12 20:32
PROVIDERS: ADMIT Student in an Organized Health Care Education/Training Program; ATTEND Internal Medicine

== ENCOUNTER 2020-01-19 08:03 | Inpatient (IN) ==
[2020-01-23] MEDS ORDERED: Senna TAB 8.6 mg TAB PO PRN (15:29)
[2020-01-23] MEDS ORDERED: HYDROmorphone 1 MG/1 ML SYRINGE IV SLOW PU PRN (15:44)
[2020-01-23] MEDS ORDERED: HYDROmorphone 0.5 MG/0.5 ML SYRINGE IV SLOW PU PRN (16:07)
[2020-01-23] MEDS: Pancrelipase 5,000 units CAP PO SCH (16:37)
[2020-01-23] MEDS: ceFAZolin 2 GM PREMIX 2 GM/50 ML BAG IVPB SCH (16:37)
[2020-01-23] MEDS ORDERED: Morphine ER 15 mg TAB ** extended release PO SCH (20:00)
[2020-01-23] MEDS: Morphine ER 30 mg TAB ** extended release PO SCH (20:15)
[2020-01-23] MEDS: Zinc Oxide 16% PASTE (Butt Paste) 30 gm TUBE TOPICAL SCH (22:30)
[2020-01-24] MEDS: ceFAZolin 2 GM PREMIX 2 GM/50 ML BAG IVPB SCH ×3 (01:02→16:57)
[2020-01-24] MEDS: HYDROmorphone 1 MG/1 ML SYRINGE IV SLOW PU PRN ×4 (01:02→23:47)
[2020-01-24] MEDS: Morphine ER 30 mg TAB ** extended release PO SCH ×2 (07:58→20:30)
[2020-01-24] MEDS: Pancrelipase 5,000 units CAP PO SCH ×3 (07:59→16:51)
[2020-01-24] MEDS: Zinc Oxide 16% PASTE (Butt Paste) 30 gm TUBE TOPICAL SCH ×3 (10:00→20:30)
[2020-01-24] MEDS: Collagenase 250 units/gm OINT 1 tube TOPICAL SCH ×2 (10:00→20:35)
[2020-01-25] MEDS: ceFAZolin 2 GM PREMIX 2 GM/50 ML BAG IVPB SCH ×3 (01:14→17:23)
[2020-01-25 05:33] LABS: ABS Basophils 0.1 10^3/ul (0-0.2); ABS Eosinophils 0.2 10^3/ul (0-0.6); ABS Lymphocytes 1.6 10^3/ul (1.0-4.8); ABS Monocytes 0.6 10^3/ul (0-0.8); ABS Neutrophils 2.4 10^3/ul (1.5-7.7); Eosinophil % 5.1 %; Hematocrit 26 % (35-47); Hemoglobin 8.6 g/dL (12.0-16.0); Lymphocyte % 32.7 %; Mean Corpuscular HGB Conc 33 g/dL (31-36); Mean Corpuscular Hemoglobin 32 pg (27-31); Mean Corpuscular Volume 98 fL (80-97); Mean Platelet Volume 7.1 fL (7.4-10.4); Platelet Count 238 10^3/uL (150-450); Red Blood Count 2.68 10^6 /uL (3.70-4.87); Red Cell Distribution Width 19 % (10-15); White Blood Count 4.9 10^3/uL (3.5-10.8)
[2020-01-25 05:51] LABS: ALT 4 U/L (7-52); AST 10 U/L (13-39); Albumin 2.8 g/dL (3.2-5.2); Albumin/Globulin Ratio 1.4 (1-3); Alkaline Phosphatase 87 U/L (34-104); Anion Gap 4 mmol/L (2-11); Blood Urea Nitrogen 8 mg/dL (6-24); CO2 Carbon Dioxide 30 mmol/L (22-32); Calcium 8.8 mg/dL (8.6-10.3); Chloride 103 mmol/L (101-111); EGFR African American 283.8 (>60); EGFR Non-African American 234.5 (>60); Glucose 66 mg/dL (70-100); Potassium 3.7 mmol/L (3.5-5.0); Sodium 137 mmol/L (135-145); Total Protein 4.8 g/dL (6.4-8.9)
[2020-01-25] MEDS: Morphine ER 30 mg TAB ** extended release PO SCH ×2 (07:25→21:28)
[2020-01-25] MEDS: Pancrelipase 5,000 units CAP PO SCH ×3 (07:25→17:17)
[2020-01-25] MEDS: Zinc Oxide 16% PASTE (Butt Paste) 30 gm TUBE TOPICAL SCH ×3 (07:30→21:43)
[2020-01-25] MEDS: Collagenase 250 units/gm OINT 1 tube TOPICAL SCH ×2 (07:30→21:43)
[2020-01-25] MEDS: HYDROmorphone 1 MG/1 ML SYRINGE IV SLOW PU PRN ×3 (09:13→21:28)
[2020-01-26] MEDS: ceFAZolin 2 GM PREMIX 2 GM/50 ML BAG IVPB SCH ×3 (01:06→17:37)
[2020-01-26] MEDS: HYDROmorphone 1 MG/1 ML SYRINGE IV SLOW PU PRN (06:20)
[2020-01-26] MEDS: Pancrelipase 5,000 units CAP PO SCH ×3 (07:35→16:14)
[2020-01-26] MEDS: Morphine ER 30 mg TAB ** extended release PO SCH ×2 (08:09→20:24)
[2020-01-26] MEDS: Zinc Oxide 16% PASTE (Butt Paste) 30 gm TUBE TOPICAL SCH ×3 (12:07→21:11)
[2020-01-26] MEDS: Collagenase 250 units/gm OINT 1 tube TOPICAL SCH ×2 (12:07→21:11)
[2020-01-26] MEDS ORDERED: HYDROmorphone 1 MG/1 ML SYRINGE IV SLOW PU PRN (15:43)
[2020-01-27] MEDS: ceFAZolin 2 GM PREMIX 2 GM/50 ML BAG IVPB SCH ×3 (01:05→17:25)
[2020-01-27] MEDS: Morphine ER 30 mg TAB ** extended release PO SCH ×2 (08:07→20:58)
[2020-01-27] MEDS: Pancrelipase 5,000 units CAP PO SCH ×3 (08:08→16:56)
[2020-01-27] MEDS: Zinc Oxide 16% PASTE (Butt Paste) 30 gm TUBE TOPICAL SCH ×3 (09:17→20:59)
[2020-01-27] MEDS: Collagenase 250 units/gm OINT 1 tube TOPICAL SCH ×2 (09:22→20:59)
[2020-01-27] MEDS: HYDROmorphone 1 MG/1 ML SYRINGE IV SLOW PU PRN (16:56)
[2020-01-28] MEDS: ceFAZolin 2 GM PREMIX 2 GM/50 ML BAG IVPB SCH ×3 (00:52→18:07)
[2020-01-28] MEDS: Pancrelipase 5,000 units CAP PO SCH ×3 (07:43→17:04)
[2020-01-28] MEDS: Morphine ER 30 mg TAB ** extended release PO SCH ×2 (08:05→20:11)
[2020-01-28] MEDS: HYDROmorphone 1 MG/1 ML SYRINGE IV SLOW PU PRN (11:22)
[2020-01-28] MEDS: Collagenase 250 units/gm OINT 1 tube TOPICAL SCH ×2 (12:57→20:21)
[2020-01-28] MEDS: Zinc Oxide 16% PASTE (Butt Paste) 30 gm TUBE TOPICAL SCH ×3 (12:57→20:21)
[2020-01-29] MEDS: ceFAZolin 2 GM PREMIX 2 GM/50 ML BAG IVPB SCH ×3 (01:25→17:57)
[2020-01-29] MEDS: HYDROmorphone 1 MG/1 ML SYRINGE IV SLOW PU PRN ×2 (02:41→12:08)
[2020-01-29 07:03] LABS: ABS Basophils 0.1 10^3/ul (0-0.2); ABS Eosinophils 0.2 10^3/ul (0-0.6); ABS Lymphocytes 1.7 10^3/ul (1.0-4.8); ABS Monocytes 0.5 10^3/ul (0-0.8); ABS Neutrophils 2.3 10^3/ul (1.5-7.7); Eosinophil % 3.2 %; Hematocrit 29 % (35-47); Hemoglobin 9.7 g/dL (12.0-16.0); Lymphocyte % 35.2 %; Mean Corpuscular HGB Conc 34 g/dL (31-36); Mean Corpuscular Hemoglobin 32 pg (27-31); Mean Corpuscular Volume 96 fL (80-97); Mean Platelet Volume 7.2 fL (7.4-10.4); Platelet Count 287 10^3/uL (150-450); Red Blood Count 3.02 10^6 /uL (3.70-4.87); Red Cell Distribution Width 18 % (10-15); White Blood Count 4.8 10^3/uL (3.5-10.8)
[2020-01-29 07:20] LABS: ALT 3 U/L (7-52); AST 13 U/L (13-39); Albumin 3.1 g/dL (3.2-5.2); Albumin/Globulin Ratio 1.3 (1-3); Alkaline Phosphatase 92 U/L (34-104); Anion Gap 4 mmol/L (2-11); Blood Urea Nitrogen 10 mg/dL (6-24); CO2 Carbon Dioxide 32 mmol/L (22-32); Calcium 9.2 mg/dL (8.6-10.3); Chloride 101 mmol/L (101-111); EGFR African American 283.8 (>60); EGFR Non-African American 234.5 (>60); Globulin 2.4 g/dL (2-4); Glucose 66 mg/dL (70-100); Potassium 4.2 mmol/L (3.5-5.0); Sodium 137 mmol/L (135-145); Total Protein 5.5 g/dL (6.4-8.9)
[2020-01-29] MEDS: Pancrelipase 5,000 units CAP PO SCH ×4 (08:12→16:56)
[2020-01-29] MEDS: Morphine ER 30 mg TAB ** extended release PO SCH ×2 (08:13→20:09)
[2020-01-29] MEDS: Zinc Oxide 16% PASTE (Butt Paste) 30 gm TUBE TOPICAL SCH ×3 (09:51→20:18)
[2020-01-29] MEDS: Collagenase 250 units/gm OINT 1 tube TOPICAL SCH ×2 (09:51→20:18)
[2020-01-29] MEDS: Hemorrhoidal OINT 1 TUBE PR PRN ×2 (13:13→20:19)
[2020-01-30] MEDS: ceFAZolin 2 GM PREMIX 2 GM/50 ML BAG IVPB SCH ×3 (01:33→17:02)
[2020-01-30] MEDS: HYDROmorphone 1 MG/1 ML SYRINGE IV SLOW PU PRN ×2 (01:39→14:05)
[2020-01-30] MEDS: Pancrelipase 5,000 units CAP PO SCH ×3 (06:29→17:01)
[2020-01-30] MEDS: Morphine ER 30 mg TAB ** extended release PO SCH ×2 (09:01→19:40)
[2020-01-30] MEDS: Zinc Oxide 16% PASTE (Butt Paste) 30 gm TUBE TOPICAL SCH ×3 (09:22→19:42)
[2020-01-30] MEDS: Collagenase 250 units/gm OINT 1 tube TOPICAL SCH ×3 (09:23→19:43)
[2020-01-30] MEDS ORDERED: HYDROmorphone 0.5 MG/0.5 ML SYRINGE IV SLOW PU PRN (19:43)
[2020-01-31] MEDS: ceFAZolin 2 GM PREMIX 2 GM/50 ML BAG IVPB SCH ×2 (01:10→09:15)
[2020-01-31 06:46] VITALS: BP 112/78
[2020-01-31 06:56] LABS: ABS Basophils 0.1 10^3/ul (0-0.2); ABS Eosinophils 0.1 10^3/ul (0-0.6); ABS Lymphocytes 1.7 10^3/ul (1.0-4.8); ABS Monocytes 0.6 10^3/ul (0-0.8); ABS Neutrophils 2.5 10^3/ul (1.5-7.7); Eosinophil % 2.5 %; Hematocrit 31 % (35-47); Hemoglobin 10.3 g/dL (12.0-16.0); Lymphocyte % 35.2 %; Mean Corpuscular HGB Conc 33 g/dL (31-36); Mean Corpuscular Hemoglobin 32 pg (27-31); Mean Corpuscular Volume 95 fL (80-97); Mean Platelet Volume 7.2 fL (7.4-10.4); Platelet Count 296 10^3/uL (150-450); Red Blood Count 3.25 10^6 /uL (3.70-4.87); Red Cell Distribution Width 18 % (10-15); White Blood Count 4.9 10^3/uL (3.5-10.8)
[2020-01-31 07:14] LABS: Albumin 3.3 g/dL (3.2-5.2); Albumin/Globulin Ratio 1.3 (1-3); C Reactive Protein 3.15 mg/L (<8.01); Calcium 9.2 mg/dL (8.6-10.3); EGFR African American 283.8 (>60); EGFR Non-African American 234.5 (>60); Globulin 2.6 g/dL (2-4); Potassium 3.8 mmol/L (3.5-5.0); Total Bilirubin 0.3 mg/dL (0.2-1.0); Total Protein 5.9 g/dL (6.4-8.9)
[2020-01-31] MEDS: Morphine ER 30 mg TAB ** extended release PO SCH (07:38)
[2020-01-31] MEDS: Pancrelipase 5,000 units CAP PO SCH (07:38)
[2020-01-31] MEDS: Zinc Oxide 16% PASTE (Butt Paste) 30 gm TUBE TOPICAL SCH (11:42)
[2020-01-31] MEDS: Collagenase 250 units/gm OINT 1 tube TOPICAL SCH (11:42)
== END 2020-01-31 14:34 | disposition home health service (06) | DRG 438 ==
LOC: PMRU 01-23 14:19
PROVIDERS: ADMIT Physical Medicine & Rehabilitation; ATTEND Physical Medicine & Rehabilitation